=== PATIENT | male | born 1945 | race Caucasian/White ===

== ENCOUNTER 2016-09-14 18:53 | Inpatient (IN) | payer MEDICARE, OTHER ==
[2016-09-14] MEDS ORDERED: SODIUM CHLORIDE 0.9% 1,000 ML IV STA (19:08)
[2016-09-14 19:18] LABS: Anisocytosis Slight; Basophils % (A) 0 %; CH 32.2; CHCM 32.5; Eosinophils # (A) 0.2 k/uL (0-0.7); Eosinophils % (A) 2 %; HCT 38.4 % (39.0-53.0); HDW 2.44; HGB 12.3 gm/dL (13.0-17.5); Luc # (Auto) 0.14; Luc % (Auto) 2; Lymphocytes # (A) 1.2 k/uL (1.0-4.8); Lymphocytes % (A) 17 %; MCHC 32.2 g/dL (31.0-37.0); MCV 99.4 fL (80.0-100.0); Macrocytosis Slight; Mean Platelet Volume 7.7; Monocytes # (A) 0.4 k/uL (0-1.0); Monocytes % (A) 6 %; Neutrophils # (A) 5.2 k/uL (1.3-7.7); Neutrophils % (A) 72 %; RBC 3.86 m/uL (4.30-5.90); RDW 17.1 % (11.5-15.5); WBC 7.1 k/uL (3.8-10.6); WBC (Perox) 7.14
--- NOTE | 2016-09-14 19:24 | XR ---
EXAMINATION TYPE: XR chest 1V DATE OF EXAM: 09/14/2016 7:17 PM COMPARISON: 12/15/2014 HISTORY: 71-year-old male difficulty breathing and chest pain TECHNIQUE: Single frontal view of the chest is obtained. FINDINGS: The heart is upper limits of normal in size. Aorta and pulmonary vasculature within normal limits. [place] areas of atelectasis lower lungs. Relative upper lung lucencies may reflect underlying emphysem a. Reverse right total shoulder arthroplasty. IMPRESSION: Possible underlying emphysema. No acute process seen.
[2016-09-14 19:27] LABS: ALT 38 U/L (21-72); AST 112 U/L (17-59); Alkaline Phosphatase 123 U/L (38-126); Anion Gap 15 mmol/L; Blood Urea Nitrogen 16 mg/dL (9-20); Calcium 8.2 mg/dL (8.4-10.2); Carbon Dioxide 29 mmol/L (22-30); Chloride 92 mmol/L (98-107); Glucose 98 mg/dL (74-99); Non-African American GFR(MDRD) 52 (>60 ml/min/1.73 sqM); Potassium 3.1 mmol/L (3.5-5.1); Sodium 136 mmol/L (137-145)
[2016-09-14 19:40] LABS: INR 1.1 (<1.1); Partial Thromboplastin Time 27.6 sec (22.0-30.0); Prothrombin Time 11.1 sec (9.0-12.0)
[2016-09-14 19:53] LABS: Troponin I 0.026 ng/mL (0.000-0.034)
[2016-09-14] MEDS ORDERED: IPRATROPIUM 0.5 MG/2.5 ML NEBU INHALATION STA (20:04)
[2016-09-14] MEDS ORDERED: BUDESONIDE 1 MG/2 ML NEBU INHALATION STA (20:05)
[2016-09-14] MEDS ORDERED: methylPREDNISolone SOD SUCCI 125 MG/2 ML VIAL IV STA (20:05)
[2016-09-14] MEDS ORDERED: LEVOFLOXACIN 500 MG TAB PO STA (20:06)
[2016-09-14] MEDS ORDERED: POTASSIUM CHLORIDE ORAL LIQUID 40 MEQ/30 ML CUP PO ONE (20:07)
[2016-09-14] MEDS ORDERED: DILTIAZEM 5 MG/ML 25 ML VIAL IV STA (20:11)
[2016-09-14] MEDS ORDERED: DILTIAZEM 125 MG in SODIUM CHLORIDE 0.9% 100 ML IV ONE (20:15)
[2016-09-14] MEDS ORDERED: DEXTROSE 5% IN WATER 100 ML with AMIODARONE 150 MG IV ONE (21:15)
[2016-09-14] MEDS ORDERED: SODIUM CHLORIDE 0.9% 500 ML IV ONE (21:19)
[2016-09-14] MEDS ORDERED: SODIUM CHLORIDE 0.9% 1,000 ML IV SCH (21:30)
--- NOTE | 2016-09-14 22:07 | ED ---
SOB HPI - General Chief Complaint: Shortness of Breath Stated Complaint: SOB Time Seen by Provider: 09/14/16 18:59 Source: patient, EMS Mode of arrival: EMS Limitations: no limitations - History of Present Illness Initial Comments: Draining about a palpitation, irregular heartbeat and shortness of breath he does have a history of COPD but shortness of breath is worse today. He is quite vague historian denies any chest pain he does feel some discomfort with deep breaths also complained about some black tarry stools. Eyes any headaches no neck stiffness does have a chest discomfort but it's chronic does have a shortness of breath and is chronic as well no abdominal pain no frequency urgency dysuria no symptoms of TIA or CVA - Related Data Home Medications Medication Instructions Recorded Confirmed HYDROcodone/APAP 10-325MG [[place] 1 tab PO Q6H PRN 08/27/13 09/14/16 10-325] Ipratropium [place] [Atrovent Hfa] 2 puff INHALATION RT-BID 11/01/14 09/14/16 Furosemide [Lasix] 40 mg PO DAILY 12/15/14 09/14/16 Budesonide/Formoterol Fumarate 2 puff INHALATION RT-BID 01/17/16 09/14/16 [Symbicort 160-4.5 Mcg Inhaler] Dicyclomine [Bentyl] 20 mg PO QID 01/17/16 09/14/16 Ipratropium-Albuterol Nebulize 3 ml INHALATION RT-QID PRN 01/17/16 09/14/16 [Duoneb 0.5 mg-3 mg/3 ml Soln] Metoprolol Tartrate 25 mg PO BID 01/17/16 09/14/16 Potassium Chloride ER [K-Dur 20] 20 meq PO DAILY 01/17/16 09/14/16 Pravastatin Sodium [Pravachol] 40 mg PO HS 01/17/16 09/14/16 Tamsulosin HCl [Flomax] 0.4 mg PO HS 01/17/16 09/14/16 Albuterol Sulfate [Proair Hfa] 1 - 2 puff INHALATION RT-Q6H PRN 09/14/16 Aspirin EC [Ecotrin Low Dose] 81 mg PO DAILY 09/14/16 09/14/16 Rivaroxaban [Xarelto] 20 mg PO DAILY 09/14/16 09/14/16 Allergies Allergy/AdvReac Type Severity Reaction Status Date / Time cephalexin monohydrate Allergy Rash/Hives Verified 09/14/16 19:50 [From Keflex] Review of Systems ROS Statement: Those systems with pertinent positive or pertinent negative responses have been documented in the HPI. ROS Other: All systems not noted in ROS Statement are negative. Past Medical History Past Medical History: Atrial Fibrillation, Chest Pain / Angina, Heart Failure, COPD, Hyperlipidemia, Hypertension, Pneumonia Additional Past Medical History / Comment(s): 12-15-14 ADMITTED TO [facility] WITH AFIB /PNE.OTHER HX: COPD, ALCOHOLIC CARDIOMYOPATHY, DT'S, CERVICAL AND LUMBAR SPONDYLOSIS, CARPAL TUNNEL disease. History of Any Multi-Drug Resistant Organisms: None Reported Past Surgical History: Back Surgery, Hernia Repair Additional Past Surgical History / Comment(s): right shoulder, bilateral cataract surgery , UMBILICAL HERNIA KINDNEY STONES REMOVED, HAMMER TOE SX X3, with subsequent amputation of the second great toe on his left foot, pain injections through neurology, colonoscopy Past Anesthesia/Blood Transfusion Reactions: No Reported Reaction Past Psychological History: No Psychological Hx Reported Additional Psychological History / Comment(s): LIVES ALONE, HX FALLS. GETS MEALS ON WHEELS. Smoking Status: Current every day smoker Past Alcohol Use History: Daily Additional Past Alcohol Use History / Comment(s): SMOKING FOR 48 YEARS DOWN 1 PPD, DRINKS A FIFTH OF VODKA BETWEEN 9PM-MIDNIGHT DAILY Past Drug Use History: None Reported - Past Family History Father Family Medical History: Diabetes Mellitus Mother History Unknown: Yes Additional Family Medical History / Comment(s): 2001 General Exam - General Exam Comments Initial Comments: General: The patient is awake and alert, in moderate distress, GCS is 15 Skin: Skin is warm and dry and no rashes or lesions are noted. The loss of excoriation scott all over on his Eye: Pupils are equal, round and reactive to light, extra-ocular movements are intact; there is normal conjunctiva bilaterally. Ears, nose, mouth and throat: Tender is not cooperative Neck: The neck is supple Cardiovascular: There is tachycardia heart rate is irregular at about 1 40 bpm Respiratory: To auscultation bilateral, is present bilaterally noticed some crackles and moderate COPD as well Gastrointestinal: patient was not cooperative with the exam, was irritated Back: Not able to examine him because of the lack of cooperation Musculoskeletal: Normal ROM, no tenderness, There is no pedal edema. There is no calf tenderness or swelling. No cords were appreciated. Neurological: CN II-XII intact, Cranial nerves III through XII are intact. There are no obvious motor or sensory deficits. Coordination appears grossly intact. Speech is normal. Psychiatric: is angry agitated frequently cursing Limitations: no limitations Course Vital Signs 09/14/16 09/14/16 09/14/16 18:54 20:45 21:00 Temperature 98.2 F Pulse Rate 140 H 151 H 145 H Respiratory 30 H 24 Rate Blood Pressure 90/57 97/52 O2 Sat by Pulse 96 97 Oximetry 09/14/16 09/14/16 21:04 21:52 Temperature Pulse Rate 143 H 148 H Respiratory 22 Rate Blood Pressure 117/58 O2 Sat by Pulse 99 Oximetry EKG is a 140 ventricular rate QRS duration is 88 QT/QTc is 346/528 review of this EKG shows some multiple artifacts do not see any P waves there are some slight ST depressions on now lateral leads V4 V5 and V6 no ST elevation noticed Medical Decision Making - Lab Data Result diagrams: 09/14/16 19:05 09/14/16 19:05 Lab Results 09/14/16 09/14/16 09/14/16 Range/Units 19:05 19:05 19:05 WBC 7.1 (3.8-10.6) k/uL RBC 3.86 L (4.30-5.90) m/uL Hgb 12.3 L (13.0-17.5) gm/dL Hct 38.4 L (39.0-53.0) % MCV 99.4 (80.0-100.0) fL MCH 32.0 (25.0-35.0) pg MCHC 32.2 (31.0-37.0) g/dL RDW 17.1 H (11.5-15.5) % Plt Count 246 (150-450) k/uL Neutrophils % 72 % Lymphocytes % 17 % Monocytes % 6 % Eosinophils % 2 % Basophils % 0 % Neutrophils # 5.2 (1.3-7.7) k/uL Lymphocytes # 1.2 (1.0-4.8) k/uL Monocytes # 0.4 (0-1.0) k/uL Eosinophils # 0.2 (0-0.7) k/uL Basophils # 0.0 (0-0.2) k/uL Anisocytosis Slight Macrocytosis Slight PT (9.0-12.0) sec INR (<1.1) APTT (22.0-30.0) sec D-Dimer (<0.60) mg/L FEU Sodium 136 L (137-145) mmol/L Potassium 3.1 L (3.5-5.1) mmol/L Chloride 92 L (98-107) mmol/L Carbon Dioxide 29 (22-30) mmol/L Anion Gap 15 mmol/L BUN 16 (9-20) mg/dL Creatinine 1.36 H (0.66-1.25) mg/dL Est GFR (MDRD) Af Amer >60 (>60 ml/min/1.73 sqM) Est GFR (MDRD) Non-Af 52 (>60 ml/min/1.73 sqM) Glucose 98 (74-99) mg/dL Calcium 8.2 L (8.4-10.2) mg/dL Total Bilirubin 2.0 H (0.2-1.3) mg/dL AST 112 H (17-59) U/L ALT 38 (21-72) U/L Alkaline Phosphatase 123 (38-126) U/L Total Creatine Kinase 109 (55-170) U/L CK-MB (CK-2) 2.0 (0.0-2.4) ng/mL CK-MB (CK-2) Rel Index 1.8 Troponin I 0.026 (0.000-0.034) ng/mL NT-Pro-B Natriuret Pep pg/mL Total Protein 7.0 (6.3-8.2) g/dL Albumin 4.0 (3.5-5.0) g/dL Stool Occult Blood (Negative) 09/14/16 09/14/16 09/14/16 Range/Units 19:05 19:05 19:05 WBC (3.8-10.6) k/uL RBC (4.30-5.90) m/uL Hgb (13.0-17.5) gm/dL Hct (39.0-53.0) % MCV (80.0-100.0) fL MCH (25.0-35.0) pg MCHC (31.0-37.0) g/dL RDW (11.5-15.5) % Plt Count (150-450) k/uL Neutrophils % % Lymphocytes % % Monocytes % % Eosinophils % % Basophils % % Neutrophils # (1.3-7.7) k/uL Lymphocytes # (1.0-4.8) k/uL Monocytes # (0-1.0) k/uL Eosinophils # (0-0.7) k/uL Basophils # (0-0.2) k/uL Anisocytosis Macrocytosis PT 11.1 (9.0-12.0) sec INR 1.1 (<1.1) APTT 27.6 (22.0-30.0) sec D-Dimer 0.76 H (<0.60) mg/L FEU Sodium (137-145) mmol/L Potassium (3.5-5.1) mmol/L Chloride (98-107) mmol/L Carbon Dioxide (22-30) mmol/L Anion Gap mmol/L BUN (9-20) mg/dL Creatinine (0.66-1.25) mg/dL Est GFR (MDRD) Af Amer (>60 ml/min/1.73 sqM) Est GFR (MDRD) Non-Af (>60 ml/min/1.73 sqM) Glucose (74-99) mg/dL Calcium (8.4-10.2) mg/dL Total Bilirubin (0.2-1.3) mg/dL AST (17-59) U/L ALT (21-72) U/L Alkaline Phosphatase (38-126) U/L Total Creatine Kinase (55-170) U/L CK-MB (CK-2) (0.0-2.4) ng/mL CK-MB (CK-2) Rel Index Troponin I (0.000-0.034) ng/mL NT-Pro-B Natriuret Pep 4470 pg/mL Total Protein (6.3-8.2) g/dL Albumin (3.5-5.0) g/dL Stool Occult Blood Negative (Negative) Critical Care Time Total Critical Care Time: 45 Critical Care Time: Patient came in with a low blood pressure and very fast heart rate, we initially wanted to give him a Cardizem bolus as well as Cardizem infusion patient said he is ALLERGIC to something which starts with the family and that happened to him at the [facility] this lady in moderate to use the Cardizem the Cardizem is not mention his ALLERGY that point we gave him some neb treatments and some IV steroids to help him with his breathing, amiodarone 150 mg over 20 minutes were advised for his tachyarrhythmia and considering his low blood pressure we gave him a bolus of normal saline for health he be admitted to a selective, his d-dimer is elevated is given need to further evaluation for a CT rule out PE though he is not a candidate for CT angiogram since his creatinine is high my have ordered VQ scan spoke with a V/Q tach VQ scan not B possible tonight and maybe possible tomorrow morning but he will continue his Xeralto for now Disposition Clinical Impression: Tachyarrhythmia, COPD (chronic obstructive pulmonary disease), Hypotension, Elevated d-dimer Disposition: ADMITTED IP TO THIS HOSP Condition: Poor Referrals: Darrick Georges MD [Primary Care Provider] - 1-2 days
[2016-09-14] MEDS ORDERED: METOPROLOL TARTRATE 25 MG TAB PO STA (22:41)
[2016-09-14] MEDS: HYDROcodone/APAP 10-325MG 1 EACH TAB PO PRN (22:58)
[2016-09-15] MEDS: METOPROLOL TARTRATE 25 MG TAB PO STA ×2 (00:34→00:37)
[2016-09-15] MEDS: methylPREDNISolone SOD SUCCI 125 MG/2 ML VIAL IV SCH ×3 (00:34→13:16)
[2016-09-15] MEDS ORDERED: METOPROLOL TARTRATE 25 MG TAB PO STA (02:27)
[2016-09-15] MEDS: AMIODARONE 450 MG in DEXTROSE 5% IN WATER 250 ML IV SCH ×4 (02:50→10:08)
[2016-09-15] MEDS: SODIUM CHLORIDE 0.9% 1,000 ML IV SCH ×2 (02:51→10:12)
[2016-09-15] MEDS: IPRATROPIUM-ALBUTEROL 3 ML NEB INHALATION PRN ×4 (06:09→23:52)
[2016-09-15 06:38] LABS: Glucose,Whole Blood 206 mg/dL (75-99)
[2016-09-15] MEDS: INSULIN LISPRO (humaLOG) 300 UNIT/3 ML VIAL SQ SCH ×4 (06:39→21:59)
[2016-09-15 06:46] LABS: Anisocytosis Slight; Basophils % (A) 0 %; CH 32.1; CHCM 31.4; Eosinophils % (A) 0 %; HCT 32.7 % (39.0-53.0); HDW 2.43; HGB 10.5 gm/dL (13.0-17.5); Hypochromasia Slight; Luc # (Auto) 0.03; Luc % (Auto) 1; Lymphocytes # (A) 0.4 k/uL (1.0-4.8); Lymphocytes % (A) 11 %; MCHC 32.2 g/dL (31.0-37.0); MCV 102.5 fL (80.0-100.0); Macrocytosis Moderate; Mean Platelet Volume 8.1; Monocytes # (A) 0.1 k/uL (0-1.0); Monocytes % (A) 2 %; Neutrophils # (A) 2.8 k/uL (1.3-7.7); Neutrophils % (A) 86 %; RBC 3.19 m/uL (4.30-5.90); WBC 3.3 k/uL (3.8-10.6); WBC (Perox) 3.22
[2016-09-15 06:57] LABS: Calcium 7.3 mg/dL (8.4-10.2)
[2016-09-15 07:05] LABS: Potassium 4.1 mmol/L (3.5-5.1)
[2016-09-15] MEDS ORDERED: BUDESONIDE 0.5 MG/2 ML NEBU INHALATION SCH (08:00)
[2016-09-15] MEDS ORDERED: METOPROLOL TARTRATE 25 MG TAB PO SCH ×3 (09:00→16:00)
[2016-09-15] MEDS: RIVAROXABAN 10 MG TAB PO SCH (09:41)
[2016-09-15] MEDS: ASPIRIN 81 MG CHEW PO SCH (09:43)
[2016-09-15] MEDS: DICYCLOMINE 20 MG TAB PO SCH ×4 (09:43→21:59)
[2016-09-15] MEDS: POTASSIUM CHLORIDE ER 20 MEQ TAB.ER PO SCH (09:43)
[2016-09-15] MEDS: LEVOFLOXACIN 500 MG TAB PO SCH (09:44)
[2016-09-15] MEDS: FUROSEMIDE 40 MG TAB PO SCH (09:44)
--- NOTE | 2016-09-15 09:58 | NM ---
EXAMINATION TYPE: NM pul vent and perfuse DATE OF EXAM: 09/15/2016 9:35 AM COMPARISON: Chest x-ray 09/14/2016 HISTORY: Elevated d-dimer, abnormal creatinine TECHNIQUE: Utilizing inhalation of 69.7 mCi Tc 99m DTPA aerosol and intravenous injection of 5.5 mCi of Tc 99m MAA, ventilation and perfusion images are acquired post injection in multiple projections. FINDINGS: There is diminished radiotracer accumulation within the left base on both ventilation and perfusion. A triple matched defect is not identified. There is no evidence of moderate or large mismatched defec ts. There is some central deposition of radiotracer on ventilation suggesting some COPD may be presen t. Diminished radiotracer accumulation on resting and stress images through the right apex. IMPRESSION: 1. Intermediate probability for pulmonary embolism. 2. There are some matched defects as well as central deposition of radiotracer suggesting underlying COPD.
[2016-09-15] MEDS: SYMBICORT 160-4.5 MCG INHALER INHALATION SCH ×2 (10:45→20:25)
[2016-09-15] MEDS: IPRATROPIUM 0.5 MG/2.5 ML NEBU INHALATION SCH ×2 (10:55→20:25)
--- NOTE | 2016-09-15 11:28 | PN ---
This is an elderly 71-year-old male patient who has been complaining of palpitations and shortness of breath. Cardiology was consulted for atrial fibrillation. He is lying comfortably in bed. He does have bilateral rhonchorous breath sounds. He denies any chest discomfort. He is complaining of palpitations and shortness of breath. Her medication list was reviewed and includes inhalers, metoprolol tartrate 25 mg b.i.d., potassium chloride, Pravachol, aspirin and Xarelto. ALLERGIES TO KEFLEX. REVIEW OF SYSTEMS: No fever, chills, or rigors. He has some cough and expectoration. No nausea, vomiting, or diarrhea. No hematuria or dysuria. No recent strokes or seizures. Past medical history of atrial fibrillation and COPD, dyslipidemia, hypertension, and alcoholic cardiomyopathy. On examination, his blood pressure is 112/88 mm mercury. Heart rate goes up 144 beats per minute irregular. He is afebrile, 97.1 degrees Fahrenheit. Head and neck examination is normal. Heart sounds are irregular. Breath sounds are reduced bilaterally with rhonchorous breath sounds. EXTREMITIES: Warm. No edema. IMPRESSION: 1. Persistent atrial fibrillation with rapid ventricular response. 2. History of alcohol use. 3. Chronic obstructive pulmonary disease exacerbation. 4. Chronic kidney disease with GFR ( ), stage III. SUGGEST: Continue metoprolol at 50 mg twice daily. Avoid digoxin. He is on amiodarone for rate control because his blood pressure is low and he is not able to tolerate higher dose of medications. Tomorrow we will switch to oral amiodarone and I will also increase the metoprolol to 50 mg 3 times a day. TSH level to be checked.
[2016-09-15 12:10] LABS: Glucose,Whole Blood 173 mg/dL (75-99)
[2016-09-15] MEDS ORDERED: Magnesium Replacement Protocol 1 EACH MISC MISCELLANE PRN (13:17)
[2016-09-15] MEDS: MAGNESIUM SULFATE-D5W PMX 1 GM in DEXTROSE/WATER 1 100ML.BAG IVPB SCH ×3 (14:30→17:48)
[2016-09-15] MEDS: METOPROLOL TARTRATE 50 MG TAB PO SCH ×2 (16:34→21:59)
[2016-09-15 17:31] LABS: Glucose,Whole Blood 227 mg/dL (75-99)
[2016-09-15] MEDS: DIAZEPAM 5 MG TAB PO SCH ×2 (17:52→21:59)
--- NOTE | 2016-09-15 18:06 | HP ---
DATE OF ADMISSION: 09/15/2016 PRESENTING COMPLAINT: Tired, short of breath. HISTORY OF PRESENTING COMPLAINT: This is a 71-year-old patient of Dr. Georges whose chronic stable medical conditions include hypertension, hyperlipidemia. Patient also noticed chronic history of atrial fibrillation, cardiomyopathy, COPD, the patient smokes about a pack a day and drinks at least 1 or 2 pints of Vodka a day. Patient presented with ( ) feeling tired, short of breath, wheezing, slight cough. No sputum. Decreased appetite, tired, rundown. REVIEW OF SYSTEMS: CONSTITUTIONAL: Weak and tired. HEENT: None. RESPIRATORY: As above. CARDIOVASCULAR: Irregular heart beat. GENITOURINARY: None. MUSCULOSKELETAL: None. Dermatological: None. HEMATOLOGICAL: None. LYMPHATICS: None. PSYCHIATRY: Some anxiety. NEUROLOGICAL: None. Past history of atrial fibrillation, cardiomyopathy, COPD, hypertension, hyperlipidemia, alcoholic cardiomyopathy. Cervical and lumbar spondylosis. Carpal tunnel disease. PAST SURGICAL HISTORY: Back surgery, hernia repair, right shoulder surgery, bilateral cataract surgery and umbilical hernia repair. Kidney stones removed, donal x3. Amputation of the second toe on the right, ( ) injections. SOCIAL HISTORY: The patient lives with friend Bekah Arriaga. She lives upstairs. Also takes care of her house. The patient smokes about a pack a day. Drinks 1 to 2 fifths of vodka between 9:00 p.m. and midnight daily. FAMILY HISTORY: Diabetes. HOME MEDICATIONS: 1. Potassium 20 mEq a day. 2. Flomax 0.4 mg p.o. q.h.s. 3. Pravachol 40 mg q.h.s. 4. Bentyl 20 mg p.o. q.i.d. 5. Aspirin 81 mg p.o. daily. 6. Pro-Air 1 to 2 puffs q.6 p.r.n. 7. Xarelto 20 mg p.o. daily. 8. Metoprolol 25 mg p.o. b.i.d. 9. DuoNeb q.i.d. p.r.n. 10. Atrovent 2 puffs b.i.d. 11. Radiant 10 1 tablets q.6 p.r.n. 12. Lasix 40 mg p.o. daily. 13. Symbicort 2 puffs b.i.d. ALLERGIES TO KEFLEX. PHYSICAL EXAMINATION: Vital signs on presentation: Temperature 98.2, pulse 140, respirations 30, blood pressure 95/57, pulse ox 96% on room air. GENERAL APPEARANCE: Average build, lying in bed, disheveled, lying in bed, short of breath. EYES: Pupils equal. Conjunctivae normal. HEENT: External appearance of nose and ears normal. Oral cavity normal. NECK: JVD not raised. Mass not palpable. RESPIRATORY: Effort increased. LUNGS: Diminished breath sounds. Prolonged expiration and wheezing. CARDIOVASCULAR: First and second sounds normal. No edema. ABDOMEN: Soft, nontender. Liver and spleen not palpable. LYMPHATIC: No lymph node palpable in neck or axillae. PSYCHIATRY: Alert and oriented x3. Mood and affect anxious -appearing. NEUROLOGICAL: Pupils equal. Cranial nerves grossly intact. Power and sensation grossly intact. INVESTIGATIONS: White count 7.1 repeat was 3.3, hemoglobin 10.5, platelets 139, potassium 4.1. BUN 18, creatinine 1.060. Accu-Cheks are noted. Calcium 7.3. Magnesium 1.0. TSH normal 1.3. X-ray some over inflation. ASSESSMENT: 1. Acute chronic obstructive pulmonary disease exacerbation in a long-standing smoker. 2. Persistent atrial fibrillation, present on admission, uncontrolled. 3. Hyperlipidemia. 4. Essential hypertension. 5. Chronic nicotine dependence. Patient is a smoker. 6. Alcoholic cardiomyopathy. 7. Chronic alcohol dependence. PLAN: Patient was started on nebulized bronchodilators and IV steroids. Also started patient put back on Lasix. Atrial fibrillation uncontrolled. Patient is on Lopressor. The patient will be given a nicotine patch and also given some Valium, DVT prophylaxis. Consultation to pulmonary and cardiology was made.
[2016-09-15] MEDS ORDERED: IPRATROPIUM-ALBUTEROL 3 ML NEB INHALATION SCH (20:00)
[2016-09-15 21:43] LABS: Glucose,Whole Blood 155 mg/dL (75-99)
[2016-09-15] MEDS: TAMSULOSIN 0.4 MG CAP.ER.24H PO SCH (21:59)
[2016-09-15] MEDS: PRAVASTATIN SODIUM 40 MG TAB PO SCH (21:59)
[2016-09-15] MEDS: methylPREDNISolone SOD SUCCI 40 MG/ML 1 ML VIAL IV SCH (23:26)
[2016-09-16] MEDS: AMIODARONE 450 MG in DEXTROSE 5% IN WATER 250 ML IV SCH ×4 (03:04→03:05)
[2016-09-16] MEDS: IPRATROPIUM-ALBUTEROL 3 ML NEB INHALATION PRN (03:44)
[2016-09-16 06:30] LABS: Glucose,Whole Blood 227 mg/dL (75-99)
[2016-09-16] MEDS: INSULIN LISPRO (humaLOG) 300 UNIT/3 ML VIAL SQ SCH ×4 (06:33→22:00)
[2016-09-16] MEDS: DIAZEPAM 5 MG TAB PO SCH ×4 (08:56→22:05)
[2016-09-16] MEDS: LEVOFLOXACIN 500 MG TAB PO SCH (08:58)
[2016-09-16] MEDS: METOPROLOL TARTRATE 50 MG TAB PO SCH ×3 (08:58→22:03)
[2016-09-16] MEDS: FUROSEMIDE 40 MG TAB PO SCH (08:58)
[2016-09-16] MEDS: RIVAROXABAN 10 MG TAB PO SCH (08:59)
[2016-09-16] MEDS: ASPIRIN 81 MG CHEW PO SCH (08:59)
[2016-09-16] MEDS: methylPREDNISolone SOD SUCCI 40 MG/ML 1 ML VIAL IV SCH ×3 (08:59→23:46)
[2016-09-16] MEDS: DICYCLOMINE 20 MG TAB PO SCH ×4 (08:59→22:03)
[2016-09-16] MEDS: SYMBICORT 160-4.5 MCG INHALER INHALATION SCH ×2 (09:03→20:08)
[2016-09-16] MEDS: IPRATROPIUM-ALBUTEROL 3 ML NEB INHALATION SCH ×4 (09:04→20:08)
[2016-09-16] MEDS: HYDROcodone/APAP 10-325MG 1 EACH TAB PO PRN (09:11)
[2016-09-16 09:53] LABS: Anisocytosis Slight; CH 32.2; CHCM 30.9; HCT 29.4 % (39.0-53.0); HDW 2.19; HGB 9.1 gm/dL (13.0-17.5); Hypochromasia Slight; MCH 32.2 pg (25.0-35.0); MCHC 30.9 g/dL (31.0-37.0); MCV 104.3 fL (80.0-100.0); Macrocytosis Moderate; Mean Platelet Volume 8.6; RBC 2.82 m/uL (4.30-5.90); RDW 17.4 % (11.5-15.5); WBC 6.7 k/uL (3.8-10.6)
[2016-09-16 09:57] LABS: Calcium 7.5 mg/dL (8.4-10.2); Potassium 3.8 mmol/L (3.5-5.1)
[2016-09-16] MEDS: SODIUM CHLORIDE 0.9% 1,000 ML IV SCH (10:26)
[2016-09-16] MEDS: POTASSIUM CHLORIDE ER 20 MEQ TAB.ER PO SCH (10:27)
[2016-09-16] MEDS ORDERED: THIAMINE 100 MG/ML 2 ML VIAL IM STA (11:18)
[2016-09-16 11:25] LABS: Glucose,Whole Blood 148 mg/dL (75-99)
[2016-09-16] MEDS: AMIODARONE 200 MG TAB PO SCH ×2 (11:34→22:02)
--- NOTE | 2016-09-16 11:36 | P.CNPUL ---
History of Present Illness Consult date: 09/16/16 Requesting physician: Martin Norton Reason for consult: COPD Chief complaint: Shortness of breath and palpitations. History of present illness: This is a 71-year-old white male with known history of COPD, patient usually sees Dr. Virk in the office for COPD. Patient is O2 dependent, but not prednisone dependent. Smoker, patient was admitted on 09/15/2016 with multiple symptoms including increased shortness of breath, occasional cough wheezing, feeling tired most of the time, and he was experiencing intermittent palpitations. Patient is normally on Xarelto, patient is a heavy drinker, drinks about one or 2 pints of vodka on a daily basis. Upon presentation, patient was noted to be in atrial fibrillation with RVR, chest x-ray showed no evidence of pneumonia, patient was placed on bronchodilators, antibiotics, steroids, and he was seen by cardiology for his atrial fibrillation which seems to be poorly controlled at present. And the patient was placed mostly on oral metoprolol. VQ scan is nondiagnostic, granted the patient is on Xarelto maintenance. Patient denies any headaches no blurred vision no dizziness. Has mostly symptoms of shortness of breath fatigue and palpitations, denies any chest pain , no nausea no vomiting no abdominal pain, no melena, no hematemesis, no dysuria , no frequency, no urgency. Patient is known to have history of chronic atrial fibrillation, alcoholic cardiomyopathy, COPD, and hypertension. Review of Systems 14 point review of systems were obtained, please refer to pertinent positives and negatives as noted in the HPI. Past Medical History Past Medical History: Atrial Fibrillation, Chest Pain / Angina, Heart Failure, COPD, Hyperlipidemia, Hypertension, Pneumonia Additional Past Medical History / Comment(s): 12-15-14 ADMITTED TO [facility] WITH AFIB /PNE.OTHER HX: COPD, ALCOHOLIC CARDIOMYOPATHY, DT'S, CERVICAL AND LUMBAR SPONDYLOSIS, CARPAL TUNNEL disease. History of Any Multi-Drug Resistant Organisms: None Reported Past Surgical History: Back Surgery, Hernia Repair Additional Past Surgical History / Comment(s): right shoulder, bilateral cataract surgery , UMBILICAL HERNIA KINDNEY STONES REMOVED, HAMMER TOE SX X3, with subsequent amputation of the second great toe on his right foot, pain injections through neurology, colonoscopy Past Anesthesia/Blood Transfusion Reactions: No Reported Reaction Past Psychological History: No Psychological Hx Reported Additional Psychological History / Comment(s): Lives with friend, Bekah Arriaga. Says she lives in the upstairs of his home. Smoking Status: Current every day smoker Past Alcohol Use History: Daily Additional Past Alcohol Use History / Comment(s): Smokes 1 PPD, DRINKS A FIFTH OF VODKA BETWEEN 9PM-MIDNIGHT DAILY Past Drug Use History: None Reported - Past Family History Father Family Medical History: Diabetes Mellitus Mother History Unknown: Yes Additional Family Medical History / Comment(s): 2001 Medications and Allergies Home Medications Medication Instructions Recorded Confirmed Type HYDROcodone/APAP 10-325MG [[place] 1 tab PO Q6H PRN 08/27/13 09/14/16 History 10-325] Ipratropium [place] [Atrovent Hfa] 2 puff INHALATION RT-BID 11/01/14 09/14/16 History Furosemide [Lasix] 40 mg PO DAILY 12/15/14 09/14/16 History Budesonide/Formoterol Fumarate 2 puff INHALATION RT-BID 01/17/16 09/14/16 History [Symbicort 160-4.5 Mcg Inhaler] Dicyclomine [Bentyl] 20 mg PO QID 01/17/16 09/14/16 History Ipratropium-Albuterol Nebulize 3 ml INHALATION RT-QID PRN 01/17/16 09/14/16 History [Duoneb 0.5 mg-3 mg/3 ml Soln] Metoprolol Tartrate 25 mg PO BID 01/17/16 09/14/16 History Potassium Chloride ER [K-Dur 20] 20 meq PO DAILY 01/17/16 09/14/16 History Pravastatin Sodium [Pravachol] 40 mg PO HS 01/17/16 09/14/16 History Tamsulosin HCl [Flomax] 0.4 mg PO HS 01/17/16 09/14/16 History Albuterol Sulfate [Proair Hfa] 1 - 2 puff INHALATION RT-Q6H PRN 09/14/16 History Aspirin EC [Ecotrin Low Dose] 81 mg PO DAILY 09/14/16 09/14/16 History Rivaroxaban [Xarelto] 20 mg PO DAILY 09/14/16 09/14/16 History Allergies Allergy/AdvReac Type Severity Reaction Status Date / Time cephalexin monohydrate Allergy Rash/Hives Verified 09/14/16 19:50 [From Keflex] Physical Exam Vitals: Vital Signs Temp Pulse Pulse Resp BP Pulse Ox 09/16/16 09:18 112 H 09/16/16 09:05 120 H 98 09/16/16 08:00 97.6 F 144 H 22 144/62 98 09/16/16 03:46 88 09/16/16 03:37 88 09/16/16 03:05 97.2 F L 112 H 20 94/61 99 09/15/16 23:55 92 09/15/16 23:43 92 09/15/16 23:15 97.8 F 124 H 20 92/62 99 09/15/16 20:40 110 H 09/15/16 20:25 108 H 09/15/16 20:20 97.2 F L 123 H 20 108/67 100 09/15/16 18:35 126 H 95/67 09/15/16 16:19 112 H 09/15/16 16:06 105 H 09/15/16 16:00 97.7 F 106 H 20 86/62 100 09/15/16 11:41 97.7 F 115 H 20 102/64 100 Intake and Output 09/15/16 09/16/16 09/16/16 22:59 06:59 14:59 Intake Total 120 650 640 Output Total 200 Balance 120 450 640 Intake: IV 400 400 Sodium Chloride 0.9% 1, 400 400 000 ml @ 50 mls/hr IV . Q20H [facility] Rx#:[id number] Intake, IV Titration 250 Amount Amiodarone 450 mg In 250 Dextrose 5% in Water 250 ml @ 1 MG/MIN 33.33 mls/ hr IV .Q7H31M [facility] Rx#: [id number] Oral 120 240 Output: Urine 200 Other: Voiding Method Urinal Urinal # Voids 2 1 2 # Bowel Movements 2 1 Weight 71.3 kg Physical Exam: Revealed a 71-year-old white male, frail, cachectic, looks chronically ill. HEENT:[Neck is supple.] [No neck masses.] [No thyromegaly.] [No JVD.] Chest: [Diminished breath sounds at the bases, no crackles, no rhonchi, no wheezes.] Cardiac Exam: [Irregular irregular rhythm Normal S1 and S2, no S3 gallop, no murmur.] Abdomen: [Soft, nontender, no megaly, no rebound, no guarding, normal bowel sounds.] Extremities: [No clubbing, no edema, no cyanosis.] Neurological Exam: [No focal neurologic deficit.] Results - Laboratory Findings CBC and BMP: 09/16/16 05:52 09/16/16 05:52 PT/INR, D-dimer PT 11.1 sec (9.0-12.0) 09/14/16 19:05 INR 1.1 (<1.1) 09/14/16 19:05 D-Dimer 0.76 mg/L FEU (<0.60) H 09/14/16 19:05 Abnormal lab findings: Abnormal Labs 09/14/16 09/14/16 09/14/16 19:05 19:05 19:05 WBC RBC 3.86 L Hgb 12.3 L Hct 38.4 L MCV MCHC RDW 17.1 H Lymphocytes # D-Dimer 0.76 H Sodium 136 L Potassium 3.1 L Chloride 92 L BUN Creatinine 1.36 H Glucose POC Glucose (mg/dL) Calcium 8.2 L Magnesium Total Bilirubin 2.0 H AST 112 H 09/15/16 09/15/16 09/15/16 05:48 05:48 05:48 WBC 3.3 L RBC 3.19 L Hgb 10.5 L Hct 32.7 L MCV 102.5 H MCHC RDW 17.0 H Lymphocytes # 0.4 L D-Dimer Sodium 133 L Potassium Chloride 95 L BUN Creatinine 1.60 H Glucose 146 H POC Glucose (mg/dL) Calcium 7.3 L Magnesium 1.0 L* Total Bilirubin AST 09/15/16 09/15/16 09/15/16 06:36 11:47 16:51 WBC RBC Hgb Hct MCV MCHC RDW Lymphocytes # D-Dimer Sodium Potassium Chloride BUN Creatinine Glucose POC Glucose (mg/dL) 206 H 173 H 227 H Calcium Magnesium Total Bilirubin AST 09/15/16 09/16/16 09/16/16 21:38 05:52 05:52 WBC RBC 2.82 L Hgb 9.1 L Hct 29.4 L MCV 104.3 H MCHC 30.9 L RDW 17.4 H Lymphocytes # D-Dimer Sodium 130 L Potassium Chloride 96 L BUN 25 H Creatinine 1.82 H Glucose 193 H POC Glucose (mg/dL) 155 H Calcium 7.5 L Magnesium Total Bilirubin AST 09/16/16 06:10 WBC RBC Hgb Hct MCV MCHC RDW Lymphocytes # D-Dimer Sodium Potassium Chloride BUN Creatinine Glucose POC Glucose (mg/dL) 227 H Calcium Magnesium Total Bilirubin AST - Diagnostic Findings Chest x-ray: image reviewed (X-ray is suggestive of underlying COPD, no acute process was noted. VQ scan was also reviewed, indeterminate, not surprised knowing the patient has severe COPD.) Assessment and Plan Plan: Impression: 1 Acute exacerbation of COPD 2 persistent atrial fibrillation, poorly controlled, that is being addressed by cardiology on the case. 3 chronic alcohol dependence patient is presently on the protocol for alcohol withdrawal. 4 alcoholic cardiomyopathy 5 essential hypertension 6 history of hyperlipidemia 7 chronic hypoxic respiratory failure secondary to COPD 8 chronic kidney injury, and renal failure 10 history of chronic anemia and history of GI blood losses noted on previous admission. Previous history of polypectomy 4. 11 history of diabetes type 2 12 history of amputation of his toes 13 history of delirium tremens Recommendation: Patient is on proper treatment plan for his COPD, not much to be added from my perspective, however I believe the patient would feel much better once his A. fib/RVR is better controlled. We'll continue to follow. Time with Patient: Greater than 30
[2016-09-16 11:38] LABS: Magnesium 1.8 mg/dL (1.6-2.3); Phosphorous 2.8 mg/dL (2.5-4.5)
[2016-09-16] MEDS: LORazepam 2 MG/ML SYRINGE IV PRN ×4 (11:55→18:07)
--- NOTE | 2016-09-16 12:01 | PN ---
DATE OF SERVICE: 09/16/2016 PRESENTING COMPLAINT: Tired, short of breath. INTERVAL HISTORY: This is a patient who presented with an acute exacerbation of COPD. Patient is lying in bed, some work of breathing noted. Patient does not appear uncomfortable. States he is not uncomfortable. States he waits for staff to help him. Patient does appear more shaky and jittery today. Patient's last drink was about approximately 48 hours ago. Review of systems done for constitutional, cardiovascular, GI, and pulmonary with relevant findings as above. CURRENT MEDICATIONS: DuoNeb 3 mL solution q.4 hours p.r.n., Symbicort 160/4.5 mcg 2 puffs inhalation b.i.d., Lasix 40 mg p.o. daily, Levaquin 500 mg p.o. daily, Solu-Medrol 40 mg IV push q.8h. PHYSICAL EXAM: VITAL SIGNS: Temperature 97.6, pulse 144, respiratory rate 22, blood pressure 144/62, oxygen saturation 98% on 2 L nasal cannula. GENERAL APPEARANCE: Patient is lying in bed, some shortness of breath noted, some tremoring and jitteriness noted as well. EYES: Pupils equal. Conjunctivae are normal. NECK: JVD not raised. Mass not palpable. Lung sounds diminished. Prolonged expiration and wheezing. CARDIOVASCULAR: First and second sounds normal. No edema. ABDOMEN: Soft, nontender. Liver and spleen not palpable. PSYCHIATRY: Alert and oriented x3. Mood and affect anxious-appearing. NEUROLOGIC: Patient tremoring more today. Patient has a known history of alcohol use. INVESTIGATIONS: White blood cell count 6.7, hemoglobin 9.1, platelet count 159, sodium 130, potassium 3.8, BUN 25, creatinine 1.82. ASSESSMENT: 1. Acute chronic obstructive pulmonary disease exacerbation in a long-standing smoker. 2. Persistent atrial fibrillation, present on admission, uncontrolled. 3. Hyperlipidemia. 4. Essential hypertension. 5. Hyponatremia. 6. Chronic nicotine dependence. Patient is a smoker. 7. Alcoholic cardiomyopathy. 8. Chronic alcohol dependence. PLAN: Patient will continue on nebulized bronchodilators and IV steroids. Cardiology will increase Lopressor from b.i.d. to t.i.d. at 50 mg each dose. Amiodarone is expected to be switched as well. Will add salt tabs to patient's current medication regimen to aid in correcting hyponatremia. Patient's last drink was approximately 48 hours ago. Will consider adding CIWA protocol to patient's regimen should patient continue to have increased tremoring as well as more symptoms of alcohol withdrawal. Pulmonology and Cardiology continue to follow. Patient was seen and examined by a nurse practitioner, Jodi Perez, and all elements of the case discussed with Dr. Norton, attending.
--- NOTE | 2016-09-16 14:18 | P.PN ---
Subjective Principal diagnosis: Atrial fibrillation This is a 71-year-old gentleman who follows with Dr. Marlys Bermudez in the office. He has a known history of paroxysmal atrial fibrillation, cardiomyopathy, nonischemic, hypertension, hyperlipidemia, who presented to the hospital symptoms of shortness of breath and associated palpitations. Currently receiving treatment for exacerbation of COPD as well as atrial fibrillation with rapid ventricular response. Patient had been on IV amiodarone drip which was discontinued early this morning, and the patient was initiated on by mouth amiodarone. Blood pressure this morning 100/60 with a heart rate in the 1 teens, we will continue the amiodarone 400 mg one tablet by mouth twice a day for one week, then 200 3 times a day for one week, then 200 mg by mouth twice a day. Continue Xarelto 20 mg daily. Objective - Vital Signs Vital signs: Vital Signs Temp 97.0 F L 09/16/16 12:00 Pulse 87 09/16/16 12:05 Resp 20 09/16/16 12:00 BP 99/55 09/16/16 12:00 Pulse Ox 99 09/16/16 12:00 Intake & Output 09/15/16 09/16/16 09/16/16 18:59 06:59 18:59 Intake Total 476.641 770 640 Output Total 200 Balance 476.641 570 640 Weight 71.3 kg Intake: IV 400 400 Sodium Chloride 0.9% 1, 400 400 000 ml @ 50 mls/hr IV . Q20H [facility] Rx#:[id number] Intake, IV Titration 236.641 250 Amount Amiodarone 450 mg In 236.641 250 Dextrose 5% in Water 250 ml @ 1 MG/MIN 33.33 mls/ hr IV .Q7H31M [facility] Rx#: [id number] Oral 240 120 240 Output: Urine 200 Other: Voiding Method Toilet Urinal Urinal # Voids 2 1 2 # Bowel Movements 2 1 - Exam PHYSICAL EXAMINATION: HEENT: Head is atraumatic, normocephalic. Pupils equal, round. Neck is supple. There is no elevated jugular venous pressure. HEART EXAMINATION: S1 and S2 irregularly irregular CHEST EXAMINATION: Lungs reveal scattered wheezing throughout. ABDOMEN: Soft, nontender. Bowel sounds are heard. No organomegaly noted. EXTREMITIES: 2+ peripheral pulses with no evidence of peripheral edema and no calf tenderness noted. NEUROLOGIC patient is awake, alert and oriented -3. . - Labs CBC & Chem 7: 09/16/16 05:52 09/16/16 05:52 Labs: Abnormal Lab Results - Last 24 Hours (Table) 09/15/16 09/15/16 09/16/16 Range/Units 16:51 21:38 05:52 RBC 2.82 L (4.30-5.90) m/uL Hgb 9.1 L (13.0-17.5) gm/dL Hct 29.4 L (39.0-53.0) % MCV 104.3 H (80.0-100.0) fL MCHC 30.9 L (31.0-37.0) g/dL RDW 17.4 H (11.5-15.5) % Sodium (137-145) mmol/L Chloride (98-107) mmol/L BUN (9-20) mg/dL Creatinine (0.66-1.25) mg/dL Glucose (74-99) mg/dL POC Glucose (mg/dL) 227 H 155 H (75-99) mg/dL Calcium (8.4-10.2) mg/dL AST (17-59) U/L 09/16/16 09/16/16 09/16/16 Range/Units 05:52 05:52 06:10 RBC (4.30-5.90) m/uL Hgb (13.0-17.5) gm/dL Hct (39.0-53.0) % MCV (80.0-100.0) fL MCHC (31.0-37.0) g/dL RDW (11.5-15.5) % Sodium 130 L (137-145) mmol/L Chloride 96 L (98-107) mmol/L BUN 25 H (9-20) mg/dL Creatinine 1.82 H (0.66-1.25) mg/dL Glucose 193 H (74-99) mg/dL POC Glucose (mg/dL) 227 H (75-99) mg/dL Calcium 7.5 L (8.4-10.2) mg/dL AST 81 H (17-59) U/L 09/16/16 Range/Units 11:19 RBC (4.30-5.90) m/uL Hgb (13.0-17.5) gm/dL Hct (39.0-53.0) % MCV (80.0-100.0) fL MCHC (31.0-37.0) g/dL RDW (11.5-15.5) % Sodium (137-145) mmol/L Chloride (98-107) mmol/L BUN (9-20) mg/dL Creatinine (0.66-1.25) mg/dL Glucose (74-99) mg/dL POC Glucose (mg/dL) 148 H (75-99) mg/dL Calcium (8.4-10.2) mg/dL AST (17-59) U/L Assessment and Plan (1) COPD exacerbation Status: Acute (2) Chronic a-fib Status: Acute (3) EtOH dependence Status: Acute (4) NICM (nonischemic cardiomyopathy) Status: Acute (5) HTN (hypertension) Status: Acute (6) Hyperlipemia Status: Acute (7) Chronic kidney disease Status: Acute (8) Chronic anemia Status: Acute (9) Chronic kidney disease Status: Acute (10) Diabetes Status: Acute (11) COPD (chronic obstructive pulmonary disease) Status: Acute Plan: From cardiology's perspective, we initiated milligrams amiodarone by mouth twice a day, we will continue that for one week then decrease to 200 3 times a day, continue for one week and decrease to 200 mg by mouth twice a day. Continue xarelto. DNP note has been reviewed, I agree with a documented findings and plan of care. Patient was seen and examined.
[2016-09-16 15:32] VITALS: BMI 21.3
[2016-09-16 16:38] LABS: Glucose,Whole Blood 153 mg/dL (75-99)
[2016-09-16] MEDS: THIAMINE 100 MG TAB PO SCH (17:13)
[2016-09-16 21:07] LABS: Glucose,Whole Blood 153 mg/dL (75-99)
[2016-09-16] MEDS: TAMSULOSIN 0.4 MG CAP.ER.24H PO SCH (22:03)
[2016-09-16] MEDS: PRAVASTATIN SODIUM 40 MG TAB PO SCH (22:18)
--- NOTE | 2016-09-17 05:50 | PN ---
DATE OF SERVICE: 09/16/2016 ATTENDING NOTE: This patient was seen and examined by me earlier today. I reviewed the note of my nurse practitioner Ms. Perez and discussed with her. Patient is admitted with COPD exacerbation and atrial fibrillation. The patient is also on Valium for DVT prophylaxis. Did tolerate some diet. Somewhat tired and mildly delirious. Current medications include nebulized bronchodilator, IV Solu-Medrol. On examination, afebrile, pulse 112, respirations 20, blood pressure 91/48, slightly short of breath. LUNGS: Increased respiration, decreased breath sounds and scattered crackles. CARDIOVASCULAR: Heart sounds irregular. ( ) lethargic but arousable. NEUROLOGICAL: Has generalized some shaking. INVESTIGATIONS: White count 6.7, sodium 130, BUN 25, creatinine 1.82 up from 1.36. ASSESSMENT: 1. Acute severe chronic obstructive pulmonary disease exacerbation in a long-standing smoker, slow to respond. 2. Persistent atrial fibrillation, somewhat controlled. 3. Hyponatremia; suspect hypoosmolar, from decreased oral intake. 4. Acute renal failure, likely prerenal from decreased oral intake. 5. Early delirium tremens from alcoholism. PLAN: Will increase patient's IV fluids. DC Lasix. Increase the Valium to 5 mg q.8. Will follow.
--- NOTE | 2016-09-17 05:54 | PN ---
ADDENDUM: ASSESSMENT: Hyponatremia likely hypoosmolar. PLAN: Discontinue Lasix. Patient was seen and examined by nurse practitioner, Jodi Perez, and all elements of the case discussed with Dr. Norton attending.
[2016-09-17] MEDS: INSULIN LISPRO (humaLOG) 300 UNIT/3 ML VIAL SQ SCH ×7 (06:16→21:07)
[2016-09-17 06:18] LABS: Glucose,Whole Blood 131 mg/dL (75-99)
[2016-09-17] MEDS: LORazepam 2 MG/ML SYRINGE IV PRN ×3 (06:25→11:50)
[2016-09-17] MEDS: methylPREDNISolone SOD SUCCI 40 MG/ML 1 ML VIAL IV SCH ×3 (08:14→23:04)
[2016-09-17] MEDS: POTASSIUM CHLORIDE ER 20 MEQ TAB.ER PO SCH (08:15)
[2016-09-17] MEDS: METOPROLOL TARTRATE 50 MG TAB PO SCH ×3 (08:15→21:06)
[2016-09-17] MEDS: ASPIRIN 81 MG CHEW PO SCH (08:15)
[2016-09-17] MEDS: RIVAROXABAN 10 MG TAB PO SCH (08:15)
[2016-09-17] MEDS: DICYCLOMINE 20 MG TAB PO SCH ×3 (08:15→16:36)
[2016-09-17] MEDS: LEVOFLOXACIN 250 MG TAB PO SCH (08:15)
[2016-09-17] MEDS: AMIODARONE 200 MG TAB PO SCH ×2 (08:15→21:05)
[2016-09-17] MEDS: DIAZEPAM 5 MG TAB PO SCH ×4 (08:15→21:05)
[2016-09-17 08:25] LABS: Calcium 7.7 mg/dL (8.4-10.2); Carbon Dioxide 28 mmol/L (22-30); Chloride 100 mmol/L (98-107); Potassium 4.4 mmol/L (3.5-5.1)
[2016-09-17 08:34] LABS: Anion Gap 9 mmol/L; Blood Urea Nitrogen 31 mg/dL (9-20); Glucose 119 mg/dL (74-99); Non-African American GFR(MDRD) 50 (>60 ml/min/1.73 sqM); Sodium 137 mmol/L (137-145)
[2016-09-17 08:35] LABS: Anisocytosis Slight; CHCM 30.4; HCT 29.3 % (39.0-53.0); HGB 9.1 gm/dL (13.0-17.5); Hypochromasia Slight; MCH 32.8 pg (25.0-35.0); MCHC 31.1 g/dL (31.0-37.0); MCV 105.5 fL (80.0-100.0); Macrocytosis Moderate; Mean Platelet Volume 7.8; RBC 2.78 m/uL (4.30-5.90); RDW 17.5 % (11.5-15.5); WBC 6.5 k/uL (3.8-10.6)
[2016-09-17] MEDS: IPRATROPIUM-ALBUTEROL 3 ML NEB INHALATION SCH ×5 (08:40→21:00)
[2016-09-17] MEDS: SYMBICORT 160-4.5 MCG INHALER INHALATION SCH ×2 (08:41→21:00)
[2016-09-17 11:43] LABS: Glucose,Whole Blood 169 mg/dL (75-99)
[2016-09-17] MEDS: THIAMINE 100 MG TAB PO SCH ×2 (11:46→16:36)
--- NOTE | 2016-09-17 15:01 | P.PN ---
Subjective Principal diagnosis: Acute exacerbation of COPD This is a 71-year-old white male with known history of COPD, patient usually sees Dr. Virk in the office for COPD. Patient is O2 dependent, but not prednisone dependent. Smoker, patient was admitted on 09/15/2016 with multiple symptoms including increased shortness of breath, occasional cough wheezing, feeling tired most of the time, and he was experiencing intermittent palpitations. Patient is normally on Xarelto, patient is a heavy drinker, drinks about one or 2 pints of vodka on a daily basis. Upon presentation, patient was noted to be in atrial fibrillation with RVR, chest x-ray showed no evidence of pneumonia, patient was placed on bronchodilators, antibiotics, steroids, and he was seen by cardiology for his atrial fibrillation which seems to be poorly controlled at present. And the patient was placed mostly on oral metoprolol. VQ scan is nondiagnostic, granted the patient is on Xarelto maintenance. Reevaluated today on 09/17/2016, continues to have cough wheezing shortness of breath. Not major improvement noted in the last 2 days. His atrial fibrillation seems to be however better controlled today, he is mostly in sinus rhythm and intermittently goes into atrial fibrillation, rates it seems to be better controlled compared to yesterday. Objective - Vital Signs Vital signs: Vital Signs Temp 98 F 09/17/16 11:56 Pulse 90 09/17/16 11:56 Resp 20 09/17/16 11:56 BP 86/63 09/17/16 11:56 Pulse Ox 95 09/17/16 11:56 Intake & Output 09/16/16 09/17/16 09/17/16 18:59 06:59 18:59 Intake Total 7872 683 2294 Output Total 400 200 Balance 880 0 1010 Weight 71.3 kg 71 kg Intake: IV 800 650 Sodium Chloride 0.9% 1, 800 650 000 ml @ 50 mls/hr IV . Q20H [facility] Rx#:[id number] Oral 480 200 360 Output: Urine 400 200 Other: Voiding Method Urinal Urinal # Voids 5 1 - Exam Physical Exam: Revealed a 71-year-old white male, frail, cachectic, looks chronically ill. HEENT:[Neck is supple.] [No neck masses.] [No thyromegaly.] [No JVD.] Chest: [Diminished breath sounds at the bases, rhonchi and wheezes noted bilaterally.] Cardiac Exam: [Irregular irregular rhythm Normal S1 and S2, no S3 gallop, no murmur.] Abdomen: [Soft, nontender, no megaly, no rebound, no guarding, normal bowel sounds.] Extremities: [No clubbing, no edema, no cyanosis.] Neurological Exam: [No focal neurologic deficit.] - Labs CBC & Chem 7: 09/17/16 07:30 09/17/16 07:30 Labs: Abnormal Lab Results - Last 24 Hours (Table) 09/16/16 09/16/16 09/17/16 Range/Units 16:36 21:03 06:15 RBC (4.30-5.90) m/uL Hgb (13.0-17.5) gm/dL Hct (39.0-53.0) % MCV (80.0-100.0) fL RDW (11.5-15.5) % BUN (9-20) mg/dL Creatinine (0.66-1.25) mg/dL Glucose (74-99) mg/dL POC Glucose (mg/dL) 153 H 153 H 131 H (75-99) mg/dL Calcium (8.4-10.2) mg/dL 09/17/16 09/17/16 09/17/16 Range/Units 07:30 07:30 11:41 RBC 2.78 L (4.30-5.90) m/uL Hgb 9.1 L (13.0-17.5) gm/dL Hct 29.3 L (39.0-53.0) % MCV 105.5 H (80.0-100.0) fL RDW 17.5 H (11.5-15.5) % BUN 31 H (9-20) mg/dL Creatinine 1.41 H (0.66-1.25) mg/dL Glucose 119 H (74-99) mg/dL POC Glucose (mg/dL) 169 H (75-99) mg/dL Calcium 7.7 L (8.4-10.2) mg/dL Assessment and Plan Plan: Impression: 1 Acute exacerbation of COPD 2 paroxysmal atrial fibrillation 3 chronic alcohol dependence patient is presently on the protocol for alcohol withdrawal. 4 alcoholic cardiomyopathy 5 essential hypertension 6 history of hyperlipidemia 7 chronic hypoxic respiratory failure secondary to COPD 8 chronic kidney injury, and renal failure 10 history of chronic anemia and history of GI blood losses noted on previous admission. Previous history of polypectomy 4. 11 history of diabetes type 2 12 history of amputation of his toes 13 history of delirium tremens Recommendation: Patient is on proper treatment plan for his COPD, but no significant improvement is noted in the last 24 hours, hence suggest keeping him on the same course of bronchodilators, not ready for any discharge planning at this point. We'll continue to follow. Time with Patient: Less than 30
--- NOTE | 2016-09-17 15:58 | PN ---
DATE OF SERVICE: 09/17/2016 PRESENTING COMPLAINT: Tired and short of breath. INTERVAL HISTORY: This is a patient who presented with an acute exacerbation of COPD as well as an extensive alcohol history. Patient is lying in bed today. Some ( ) breathing noted. Patient does not appear to be uncomfortable. He has a very loud barky cough. Patient does appear to be a bit restless. Patient appears less shaky and jittery today. Patient's last drink was about 72 hours ago. Review of systems done for constitutional, cardiovascular, GI, pulmonary, with relevant findings as above. CURRENT MEDICATIONS: 1. DuoNeb 3 mL q.4 hours p.r.n. 2. Symbicort 160/4.5 mcg 2 puffs inhalation b.i.d. 3. Lasix 40 mg p.o. b.i.d. 4. Levaquin 500 mg p.o. daily. 5. Solu-Medrol 40 mg IV push q.8 hours. PHYSICAL EXAMINATION: VITAL SIGNS: Temperature 98.2, pulse 81, respiratory rate 20, blood pressure 97/61, pulse ox 96% on 2.5 L nasal cannula. GENERAL APPEARANCE: Patient lying in bed. No shirt on. Pajama pants on. No apparent distress. Breathing pretty heavily. When coughing, he coughs very loudly; sounds like he is trying to cough up sputum but is unsuccessful. EYES: Pupils equal. Conjunctivae normal. NECK: JVD not raised. Mass not palpable. LUNGS: Sounds diminished bilaterally. Prolonged expiration and wheezing. CARDIOVASCULAR: First and second sounds normal, irregular. Trace edema. ABDOMEN: Soft, nontender. Liver and spleen not palpable. PSYCHIATRY: Alert and oriented x3. Mood and affect are anxious-appearing. NEUROLOGIC: Patient has generalized tremors today. Known history of alcohol use. INVESTIGATIONS: White blood cell count 6.5, hemoglobin 9.1, platelet count 155. Sodium 137, potassium 4.4. BUN 31, creatinine 1.41. Calcium 7.7. ASSESSMENT: 1. Acute severe chronic obstructive pulmonary disease exacerbation in a long-standing smoker, slow to respond. 2. Persistent atrial fibrillation, somewhat controlled. 3. Hyponatremia; suspect hypo-osmolar from decreased oral intake. 4. Acute renal failure, likely prerenal from decreased oral intake. 5. Early delirium tremens from alcoholism. 6. Hyperlipidemia. 7. Essential hypertension. 8. Chronic nicotine dependence. Patient is a smoker. 9. Alcoholic cardiomyopathy. PLAN: Will continue patient's IV fluids. Thallium increased to ( ) mg q.8 hours. Will continue to monitor patient's withdrawal symptoms and medicate appropriately. Pulmonology and Cardiology continue to follow. Will follow with them. Patient was seen and examined by nurse practitioner, Jodi Perez, and all the elements of the case were discussed with Dr. Norton.
[2016-09-17 16:27] LABS: Glucose,Whole Blood 274 mg/dL (75-99)
[2016-09-17] MEDS: DICYCLOMINE 10 MG CAP PO SCH ×2 (17:07→23:03)
[2016-09-17] MEDS: TAMSULOSIN 0.4 MG CAP.ER.24H PO SCH (21:05)
[2016-09-17] MEDS: PRAVASTATIN SODIUM 40 MG TAB PO SCH (21:05)
[2016-09-17 21:27] LABS: Glucose,Whole Blood 126 mg/dL (75-99)
--- NOTE | 2016-09-17 21:59 | PN ---
DATE OF SERVICE: 09/17/2016 ATTENDING NOTE: This patient was seen and examined by me earlier today and admitted with COPD exacerbation and some alcohol withdrawals. The patient actually looks better, did tolerate his diet, not shaky and ( ) On examination, afebrile, blood pressure 97/76, respirations 21, pulse ox 96% on 2.5L. LUNGS: Decreased breath sounds. Some expiratory crackles. Patient is awake, answering questions. INVESTIGATIONS: White count 6.5, hemoglobin 9.1. Patient's creatinine is 1.41. ASSESSMENT: 1. Acute severe chronic obstructive pulmonary disease exacerbation in a long-standing smoker, slow to respond. 2. Persistent atrial fibrillation, currently in sinus tachycardia. 3. Acute renal failure, likely prerenal, improving. 4. Acute delirium tremens from alcoholism, improving. PLAN: At this point, will cut back patient's Valium to 2.5 mg q.8. Also, patient's dose of Bentyl will be cut back. Patient is on amiodarone per Cardiology. Will also cut back on the dose of Solu-Medrol, keep on beta chidi.
[2016-09-18 07:28] LABS: Glucose,Whole Blood 167 mg/dL (75-99)
[2016-09-18] MEDS: IPRATROPIUM-ALBUTEROL 3 ML NEB INHALATION SCH ×4 (08:20→20:09)
[2016-09-18] MEDS: SYMBICORT 160-4.5 MCG INHALER INHALATION SCH ×2 (08:20→20:09)
[2016-09-18] MEDS: methylPREDNISolone SOD SUCCI 40 MG/ML 1 ML VIAL IV SCH ×3 (08:55→23:20)
[2016-09-18] MEDS: INSULIN LISPRO (humaLOG) 300 UNIT/3 ML VIAL SQ SCH ×4 (08:55→21:32)
[2016-09-18] MEDS: ASPIRIN 81 MG CHEW PO SCH (08:56)
[2016-09-18] MEDS: METOPROLOL TARTRATE 50 MG TAB PO SCH ×3 (08:56→21:36)
[2016-09-18] MEDS: DIAZEPAM 5 MG TAB PO SCH ×3 (08:56→21:30)
[2016-09-18] MEDS: DICYCLOMINE 10 MG CAP PO SCH ×4 (08:56→21:30)
[2016-09-18] MEDS: LEVOFLOXACIN 250 MG TAB PO SCH (08:56)
[2016-09-18] MEDS: AMIODARONE 200 MG TAB PO SCH ×2 (08:56→21:30)
[2016-09-18] MEDS: POTASSIUM CHLORIDE ER 20 MEQ TAB.ER PO SCH (08:57)
[2016-09-18] MEDS: RIVAROXABAN 10 MG TAB PO SCH (08:57)
[2016-09-18 10:50] LABS: Anisocytosis Slight; CH 32.1; CHCM 30.2; HCT 29.6 % (39.0-53.0); HDW 2.21; HGB 9.2 gm/dL (13.0-17.5); Hypochromasia Moderate; MCH 33.2 pg (25.0-35.0); MCHC 31.2 g/dL (31.0-37.0); MCV 106.6 fL (80.0-100.0); Macrocytosis Marked; Mean Platelet Volume 7.8; RBC 2.78 m/uL (4.30-5.90); RDW 17.4 % (11.5-15.5); WBC 7.7 k/uL (3.8-10.6)
[2016-09-18 11:08] LABS: Anion Gap 8 mmol/L; Blood Urea Nitrogen 37 mg/dL (9-20); Calcium 8.1 mg/dL (8.4-10.2); Carbon Dioxide 27 mmol/L (22-30); Chloride 104 mmol/L (98-107); Glucose 145 mg/dL (74-99); Non-African American GFR(MDRD) 59 (>60 ml/min/1.73 sqM); Sodium 139 mmol/L (137-145)
[2016-09-18 11:18] LABS: Potassium 4.4 mmol/L (3.5-5.1)
[2016-09-18] MEDS: THIAMINE 100 MG TAB PO SCH ×2 (12:30→16:24)
[2016-09-18 12:31] LABS: Glucose,Whole Blood 164 mg/dL (75-99)
--- NOTE | 2016-09-18 14:16 | P.PN ---
Subjective This is a 71-year-old white male with known history of COPD, patient usually sees Dr. Virk in the office for COPD. Patient is O2 dependent, but not prednisone dependent. Smoker, patient was admitted on 09/15/2016 with multiple symptoms including increased shortness of breath, occasional cough wheezing, feeling tired most of the time, and he was experiencing intermittent palpitations. Patient is normally on Xarelto, patient is a heavy drinker, drinks about one or 2 pints of vodka on a daily basis. Upon presentation, patient was noted to be in atrial fibrillation with RVR, chest x-ray showed no evidence of pneumonia, patient was placed on bronchodilators, antibiotics, steroids, and he was seen by cardiology for his atrial fibrillation which seems to be poorly controlled at present. And the patient was placed mostly on oral metoprolol. VQ scan is nondiagnostic, granted the patient is on Xarelto maintenance. Reevaluated today on 09/17/2016, continues to have cough wheezing shortness of breath. Not major improvement noted in the last 2 days. His atrial fibrillation seems to be however better controlled today, he is mostly in sinus rhythm and intermittently goes into atrial fibrillation, rates it seems to be better controlled compared to yesterday. The patient was seen again today 09/18/2016 in follow-up on the regular medical floor. He is awake and alert in no acute distress. He does have some dyspnea on minimal exertion. A nonproductive cough. Still wheezy. He is maintaining good O2 saturations in the upper 90s on 3 L/m per nasal cannula. He is afebrile. Objective - Vital Signs Vital signs: Vital Signs Temp 96.9 F L 09/18/16 07:00 Pulse 72 09/18/16 11:21 Resp 16 09/18/16 07:00 BP 129/60 09/18/16 07:00 Pulse Ox 97 09/18/16 07:00 Intake & Output 09/17/16 09/18/16 09/18/16 18:59 06:59 18:59 Intake Total 1370 250 Output Total 350 Balance 1370 -100 Intake: IV 650 Sodium Chloride 0.9% 1, 650 000 ml @ 50 mls/hr IV . Q20H [id number] Rx#:[id number] Oral 720 250 Output: Urine 350 Other: Voiding Method Urinal Urinal Urinal - Exam GENERAL EXAM: Alert, active, comfortable in no apparent distress. HEAD: Normocephalic. EYES: Normal reaction of pupils, equal size. NOSE: Clear with pink turbinates. THROAT: No erythema or exudates. NECK: No masses, no JVD. CHEST: No chest wall deformity. LUNGS: Equal air entry with bilateral end expiratory wheeze. Diminished.. CVS: S1 and S2 normal with no audible murmurs, regular rhythm. ABDOMEN: No hepatosplenomegaly, normal bowel sounds, no guarding or rigidity. SPINE: No scoliosis or deformity SKIN: No rashes CENTRAL NERVOUS SYSTEM: No focal deficits, tone is normal in all 4 extremities. *Midis: There is no significant peripheral edema. No clubbing, no cyanosis. Peripheral pulses are intact. - Labs CBC & Chem 7: 09/18/16 10:14 09/18/16 10:11 Labs: Abnormal Lab Results - Last 24 Hours (Table) 09/17/16 09/17/16 09/18/16 Range/Units 16:22 20:56 06:58 RBC (4.30-5.90) m/uL Hgb (13.0-17.5) gm/dL Hct (39.0-53.0) % MCV (80.0-100.0) fL RDW (11.5-15.5) % BUN (9-20) mg/dL Glucose (74-99) mg/dL POC Glucose (mg/dL) 274 H 126 H 167 H (75-99) mg/dL Calcium (8.4-10.2) mg/dL 09/18/16 09/18/16 09/18/16 Range/Units 10:11 10:14 12:27 RBC 2.78 L (4.30-5.90) m/uL Hgb 9.2 L (13.0-17.5) gm/dL Hct 29.6 L (39.0-53.0) % MCV 106.6 H (80.0-100.0) fL RDW 17.4 H (11.5-15.5) % BUN 37 H (9-20) mg/dL Glucose 145 H (74-99) mg/dL POC Glucose (mg/dL) 164 H (75-99) mg/dL Calcium 8.1 L (8.4-10.2) mg/dL Assessment and Plan Plan: Impression: 1 Acute exacerbation of COPD 2 paroxysmal atrial fibrillation 3 chronic alcohol dependence patient is presently on the protocol for alcohol withdrawal. 4 alcoholic cardiomyopathy 5 essential hypertension 6 history of hyperlipidemia 7 chronic hypoxic respiratory failure secondary to COPD 8 chronic kidney injury, and renal failure 10 history of chronic anemia and history of GI blood losses noted on previous admission. Previous history of polypectomy 4. 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 Tejeda. He is improved today as compared to yesterday. We'll continue with his current COPD exacerbation treatments. We'll increase his activity as tolerated. We'll continue to follow.
[2016-09-18 17:05] LABS: Glucose,Whole Blood 147 mg/dL (75-99)
[2016-09-18 21:04] LABS: Glucose,Whole Blood 167 mg/dL (75-99)
[2016-09-18] MEDS: PRAVASTATIN SODIUM 40 MG TAB PO SCH (21:30)
[2016-09-18] MEDS: TAMSULOSIN 0.4 MG CAP.ER.24H PO SCH (21:31)
--- NOTE | 2016-09-18 22:44 | PN ---
DATE OF SERVICE: 09/18/2016 PRESENTING COMPLAINT: Tired and short of breath. INTERVAL HISTORY: This is a patient who presented with an acute exacerbation of COPD as well as extensive alcohol history. Patient is lying in bed today, continues to have mildly labored breathing. Patient does not appear to be uncomfortable. Patient continues to have a loud barky productive cough. Patient is less restless today. Patient appears less shaky and jittery today as well. Review of systems done for constitutional, cardiovascular, GI, pulmonary, with relevant findings as above. CURRENT MEDICATIONS: 1. DuoNeb 3 mL q.4 hours p.r.n. 2. Symbicort 160/4.5 mcg 2 puffs inhalation b.i.d. 3. Lasix 40 mg p.o. b.i.d. 4. Levaquin 500 mg p.o. daily. 5. Solu-Medrol 40 mg IV push q.8h. PHYSICAL EXAMINATION: VITAL SIGNS: Temperature 96.9, pulse 73, respiratory rate 16, blood pressure 129/60, oxygen saturation 97% on 3L nasal cannula. GENERAL APPEARANCE: Patient lying in bed, comfortable-appearing, occasional cough noted, but otherwise no distress. EYES: Pupils equal. Conjunctivae normal. NECK: JVD not raised. Mass not palpable. LUNGS: Diminished bilaterally. Better air movement today. RESPIRATORY: Effort normal. CARDIOVASCULAR: First and second sounds noted. Trace edema noted. ABDOMEN: Soft, nontender. Liver and spleen not palpable. PSYCHIATRY: Alert and alert and oriented x3. Mood and affect normal. Hemoglobin 9.2, platelet count 168. Calcium 8.1. Blood glucose monitoring 164. ASSESSMENT: 1. Acute severe, chronic obstructive pulmonary disease exacerbation in a long-standing smoker, slow to respond. 2. Persistent atrial fibrillation, somewhat controlled. 3. Hyponatremia, suspect hypoosmolar from decreased oral intake. 4. Acute renal failure, likely prerenal from decreased oral intake. 5. Early delirium tremens from alcoholism, resolved. 6. Hyperlipidemia. 7. Essential hypertension. 8. Chronic nicotine dependence. Patient is a smoker. 9. Alcoholic cardiomyopathy. PLAN: We will continue patient's IV fluids. Current medication and treatment regimen will be followed, as patient has not seen significant improvements. Pulmonology and Cardiology continue to follow. Patient is not yet ready for discharge planning. Patient was seen and examined by Nurse Practitioner Jodi Perez, and all elements of the case were discussed with Dr. Norton. I performed a history and physical examination of this patient and discussed the same with the dictator. I agree with the dictator's note. Any additional findings/opinions, etc. will be noted.
[2016-09-19] MEDS: IPRATROPIUM-ALBUTEROL 3 ML NEB INHALATION PRN (02:54)
[2016-09-19 07:26] LABS: Glucose,Whole Blood 155 mg/dL (75-99)
[2016-09-19] MEDS: IPRATROPIUM-ALBUTEROL 3 ML NEB INHALATION SCH ×4 (07:28→19:48)
[2016-09-19] MEDS: SYMBICORT 160-4.5 MCG INHALER INHALATION SCH ×2 (07:28→19:48)
[2016-09-19] MEDS: POTASSIUM CHLORIDE ER 20 MEQ TAB.ER PO SCH (08:05)
[2016-09-19] MEDS: DIAZEPAM 5 MG TAB PO SCH ×3 (08:05→21:40)
[2016-09-19] MEDS: METOPROLOL TARTRATE 50 MG TAB PO SCH ×3 (08:05→21:41)
[2016-09-19] MEDS: LEVOFLOXACIN 250 MG TAB PO SCH (08:05)
[2016-09-19] MEDS: DICYCLOMINE 10 MG CAP PO SCH ×4 (08:05→21:40)
[2016-09-19] MEDS: AMIODARONE 200 MG TAB PO SCH ×2 (08:05→21:40)
[2016-09-19] MEDS: RIVAROXABAN 10 MG TAB PO SCH (08:05)
[2016-09-19] MEDS: methylPREDNISolone SOD SUCCI 40 MG/ML 1 ML VIAL IV SCH (08:05)
[2016-09-19] MEDS: ASPIRIN 81 MG CHEW PO SCH (08:06)
[2016-09-19] MEDS: INSULIN LISPRO (humaLOG) 300 UNIT/3 ML VIAL SQ SCH ×4 (08:08→21:41)
[2016-09-19 10:44] LABS: Anisocytosis Slight; CH 32.2; HCT 28.8 % (39.0-53.0); HDW 2.26; HGB 9.2 gm/dL (13.0-17.5); Hypochromasia Slight; MCH 33.3 pg (25.0-35.0); MCV 104.2 fL (80.0-100.0); Macrocytosis Moderate; RBC 2.76 m/uL (4.30-5.90); RDW 17.3 % (11.5-15.5); WBC 6.5 k/uL (3.8-10.6)
[2016-09-19 10:49] LABS: Anion Gap 6 mmol/L; Blood Urea Nitrogen 37 mg/dL (9-20); Calcium 8.3 mg/dL (8.4-10.2); Carbon Dioxide 28 mmol/L (22-30); Chloride 103 mmol/L (98-107); Glucose 195 mg/dL (74-99); Non-African American GFR(MDRD) >60 (>60 ml/min/1.73 sqM); Potassium 4.5 mmol/L (3.5-5.1); Sodium 137 mmol/L (137-145)
--- NOTE | 2016-09-19 10:50 | PN ---
DATE OF SERVICE: 09/18/2016 ATTENDING NOTE: This patient examined by me on 09/18/16. I reviewed the note of my nurse practitioner, Ms. Perez. Discussed and agree with the same. Patient admitted with COPD exacerbation, atrial fibrillation, acute renal failure. DTs are actually improved. Overall looking better. Breathing is getting better. ON EXAM: Afebrile. LUNGS: Diminished breath sounds. No more crackles. PSYCH: More awake, alert, talking appropriately. INVESTIGATIONS: White count 7.7, BUN 37, creatinine 1.22. ASSESSMENT: 1. Chronic obstructive pulmonary disease exacerbation, improving. 2. Acute renal failure, improving. 3. Persistent atrial fibrillation. PLAN: Overall the patient is doing better. Continue current medication and treatment plan. Care was discussed with the patient. Will follow.
[2016-09-19] MEDS: THIAMINE 100 MG TAB PO SCH ×2 (12:13→17:02)
[2016-09-19] MEDS: HYDROcodone/APAP 10-325MG 1 EACH TAB PO PRN (12:15)
[2016-09-19 12:43] LABS: Glucose,Whole Blood 163 mg/dL (75-99)
[2016-09-19] MEDS: SODIUM CHLORIDE 0.9% 1,000 ML IV SCH (13:31)
--- NOTE | 2016-09-19 13:41 | P.PN ---
Subjective Principal diagnosis: Acute exacerbation of COPD, atrial fibrillation with RVR This is a 71-year-old white male with known history of COPD, patient usually sees Dr. Virk in the office for COPD. Patient is O2 dependent, but not prednisone dependent. Smoker, patient was admitted on 09/15/2016 with multiple symptoms including increased shortness of breath, occasional cough wheezing, feeling tired most of the time, and he was experiencing intermittent palpitations. Patient is normally on Xarelto, patient is a heavy drinker, drinks about one or 2 pints of vodka on a daily basis. Upon presentation, patient was noted to be in atrial fibrillation with RVR, chest x-ray showed no evidence of pneumonia, patient was placed on bronchodilators, antibiotics, steroids, and he was seen by cardiology for his atrial fibrillation which seems to be poorly controlled at present. And the patient was placed mostly on oral metoprolol. VQ scan is nondiagnostic, granted the patient is on Xarelto maintenance. Reevaluated today on 09/17/2016, continues to have cough wheezing shortness of breath. Not major improvement noted in the last 2 days. His atrial fibrillation seems to be however better controlled today, he is mostly in sinus rhythm and intermittently goes into atrial fibrillation, rates it seems to be better controlled compared to yesterday. The patient was seen again today 09/18/2016 in follow-up on the regular medical floor. He is awake and alert in no acute distress. He does have some dyspnea on minimal exertion. A nonproductive cough. Still wheezy. He is maintaining good O2 saturations in the upper 90s on 3 L/m per nasal cannula. He is afebrile. Patient was seen again on 09/19/2016, continues to have intermittent episodes of wheezing, coughing, some shortness of breath, remains in atrial fibrillation, rate seems to be better controlled. On physical examination, there is some rhonchi and wheezes, but overall improved compared to a few days ago. Abscess showed WBC count of 6.5 hemoglobin of 9.2 electrolytes are normal BUN is 37 creatinine is 1.10 Objective - Vital Signs Vital signs: Vital Signs Temp 96.9 F L 09/19/16 07:00 Pulse 80 09/19/16 11:31 Resp 19 09/19/16 07:00 BP 128/67 09/19/16 07:00 Pulse Ox 100 09/19/16 07:29 Intake & Output 09/18/16 09/19/16 09/19/16 18:59 06:59 18:59 Intake Total 600 Balance 600 Intake: Oral 600 Other: Voiding Method Urinal Urinal Toilet # Voids 1 1 # Bowel Movements 1 - Exam GENERAL EXAM: Alert, active, comfortable in no apparent distress. HEAD: Normocephalic. EYES: Normal reaction of pupils, equal size. NOSE: Clear with pink turbinates. THROAT: No erythema or exudates. NECK: No masses, no JVD. CHEST: No chest wall deformity. LUNGS: Equal air entry with bilateral end expiratory wheeze. Diminished.. CVS: S1 and S2 normal with no audible murmurs, irregular irregular rhythm ABDOMEN: No hepatosplenomegaly, normal bowel sounds, no guarding or rigidity. SPINE: No scoliosis or deformity SKIN: No rashes CENTRAL NERVOUS SYSTEM: No focal deficits, tone is normal in all 4 extremities. *Midis: There is no significant peripheral edema. No clubbing, no cyanosis. Peripheral pulses are intact. - Labs CBC & Chem 7: 09/19/16 09:53 09/19/16 09:53 Labs: Abnormal Lab Results - Last 24 Hours (Table) 09/18/16 09/18/16 09/19/16 Range/Units 16:59 20:49 07:13 RBC (4.30-5.90) m/uL Hgb (13.0-17.5) gm/dL Hct (39.0-53.0) % MCV (80.0-100.0) fL RDW (11.5-15.5) % BUN (9-20) mg/dL Glucose (74-99) mg/dL POC Glucose (mg/dL) 147 H 167 H 155 H (75-99) mg/dL Calcium (8.4-10.2) mg/dL 09/19/16 09/19/16 09/19/16 Range/Units 09:53 09:53 12:37 RBC 2.76 L (4.30-5.90) m/uL Hgb 9.2 L (13.0-17.5) gm/dL Hct 28.8 L (39.0-53.0) % MCV 104.2 H (80.0-100.0) fL RDW 17.3 H (11.5-15.5) % BUN 37 H (9-20) mg/dL Glucose 195 H (74-99) mg/dL POC Glucose (mg/dL) 163 H (75-99) mg/dL Calcium 8.3 L (8.4-10.2) mg/dL Assessment and Plan Plan: 1 Acute exacerbation of COPD 2 paroxysmal atrial fibrillation 3 chronic alcohol dependence patient is presently on the protocol for alcohol withdrawal. 4 alcoholic cardiomyopathy 5 essential hypertension 6 history of hyperlipidemia 7 chronic hypoxic respiratory failure secondary to COPD 8 chronic kidney injury, and renal failure 10 history of chronic anemia and history of GI blood losses noted on previous admission. Previous history of polypectomy 4. 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 Continue to follow.
--- NOTE | 2016-09-19 13:46 | P.PN ---
Subjective This is a 71-year-old white male with known history of COPD, patient usually sees Dr. Virk in the office for COPD. Patient is O2 dependent, but not prednisone dependent. Smoker, patient was admitted on 09/15/2016 with multiple symptoms including increased shortness of breath, occasional cough wheezing, feeling tired most of the time, and he was experiencing intermittent palpitations. Patient is normally on Xarelto, patient is a heavy drinker, drinks about one or 2 pints of vodka on a daily basis. Upon presentation, patient was noted to be in atrial fibrillation with RVR, chest x-ray showed no evidence of pneumonia, patient was placed on bronchodilators, antibiotics, steroids, and he was seen by cardiology for his atrial fibrillation which seems to be poorly controlled at present. And the patient was placed mostly on oral metoprolol. VQ scan is nondiagnostic, granted the patient is on Xarelto maintenance. Reevaluated today on 09/17/2016, continues to have cough wheezing shortness of breath. Not major improvement noted in the last 2 days. His atrial fibrillation seems to be however better controlled today, he is mostly in sinus rhythm and intermittently goes into atrial fibrillation, rates it seems to be better controlled compared to yesterday. The patient was seen again today 09/18/2016 in follow-up on the regular medical floor. He is awake and alert in no acute distress. He does have some dyspnea on minimal exertion. A nonproductive cough. Still wheezy. He is maintaining good O2 saturations in the upper 90s on 3 L/m per nasal cannula. He is afebrile. The patient is seen again today 09/19/2016 in follow-up on the regular medical floor. He is currently awake and alert in no acute distress. He denies any worsening shortness of breath at this time. He has a loose nonproductive cough. No chills or night sweats. He remains afebrile. He is maintaining good O2 saturations in the high 90s on 3 L/m per nasal cannula. Objective - Vital Signs Vital signs: Vital Signs Temp 96.9 F L 09/19/16 07:00 Pulse 80 09/19/16 11:31 Resp 19 09/19/16 07:00 BP 128/67 09/19/16 07:00 Pulse Ox 100 09/19/16 07:29 Intake & Output 09/18/16 09/19/16 09/19/16 18:59 06:59 18:59 Intake Total 600 Balance 600 Intake: Oral 600 Other: Voiding Method Urinal Urinal Toilet # Voids 1 1 # Bowel Movements 1 - Exam GENERAL EXAM: Alert, active, comfortable in no apparent distress. HEAD: Normocephalic. EYES: Normal reaction of pupils, equal size. NOSE: Clear with pink turbinates. THROAT: No erythema or exudates. NECK: No masses, no JVD. CHEST: No chest wall deformity. LUNGS: Equal air entry with bilateral end expiratory wheeze. Diminished.. CVS: S1 and S2 normal with no audible murmurs, regular rhythm. ABDOMEN: No hepatosplenomegaly, normal bowel sounds, no guarding or rigidity. SPINE: No scoliosis or deformity SKIN: No rashes CENTRAL NERVOUS SYSTEM: No focal deficits, tone is normal in all 4 extremities. Extremities: There is no significant peripheral edema. No clubbing, no cyanosis. Peripheral pulses are intact. - Labs CBC & Chem 7: 09/19/16 09:53 09/19/16 09:53 Labs: Abnormal Lab Results - Last 24 Hours (Table) 09/18/16 09/18/16 09/19/16 Range/Units 16:59 20:49 07:13 RBC (4.30-5.90) m/uL Hgb (13.0-17.5) gm/dL Hct (39.0-53.0) % MCV (80.0-100.0) fL RDW (11.5-15.5) % BUN (9-20) mg/dL Glucose (74-99) mg/dL POC Glucose (mg/dL) 147 H 167 H 155 H (75-99) mg/dL Calcium (8.4-10.2) mg/dL 09/19/16 09/19/16 09/19/16 Range/Units 09:53 09:53 12:37 RBC 2.76 L (4.30-5.90) m/uL Hgb 9.2 L (13.0-17.5) gm/dL Hct 28.8 L (39.0-53.0) % MCV 104.2 H (80.0-100.0) fL RDW 17.3 H (11.5-15.5) % BUN 37 H (9-20) mg/dL Glucose 195 H (74-99) mg/dL POC Glucose (mg/dL) 163 H (75-99) mg/dL Calcium 8.3 L (8.4-10.2) mg/dL Assessment and Plan Plan: Impression: 1 Acute exacerbation of COPD 2 paroxysmal atrial fibrillation, anticoagulated with Xarelto. 3 chronic alcohol dependence patient is presently on the protocol for alcohol withdrawal. 4 alcoholic cardiomyopathy 5 essential hypertension 6 history of hyperlipidemia 7 chronic hypoxic respiratory failure secondary to COPD 8 chronic kidney injury, and renal failure 10 history of chronic anemia and history of GI blood losses noted on previous admission. Previous history of polypectomy 4. 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 Tejeda. We'll continue with his current COPD exacerbation treatment. Not quite ready for discharge. We'll increase his activity as tolerated. We'll continue to follow.
[2016-09-19] MEDS: predniSONE 20 MG TAB PO SCH (13:55)
[2016-09-19 17:26] LABS: Glucose,Whole Blood 141 mg/dL (75-99)
[2016-09-19 20:51] LABS: Glucose,Whole Blood 169 mg/dL (75-99)
[2016-09-19] MEDS: PRAVASTATIN SODIUM 40 MG TAB PO SCH (21:40)
[2016-09-19] MEDS: TAMSULOSIN 0.4 MG CAP.ER.24H PO SCH (21:40)
--- NOTE | 2016-09-19 23:19 | PN ---
DATE OF SERVICE: 09/19/2016 PRESENTING COMPLAINT: Tired and short of breath. INTERVAL HISTORY: This is a patient who presented with an acute exacerbation of COPD as well as extensive alcohol history. Patient is lying in bed today. Breathing is less labored. Patient appears comfortable. Patient continues to have a loud, barky, productive cough. Sputum production is clear. Patient is less restless today. Review of systems was done for constitutional, cardiovascular, GI, pulmonary, with relevant findings as above. CURRENT MEDICATIONS: 1. DuoNeb 3 mL q.4 hours p.r.n. 2. Symbicort 160/4.5 mcg 2 puffs inhalation b.i.d. 3. Lasix 40 mg p.o. b.i.d. 4. Levaquin 500 mg p.o. daily. 5. Solu-Medrol 40 mg IV push q.8 hours. PHYSICAL EXAMINATION: VITAL SIGNS: Temperature 97.3, pulse 75, respiratory rate 19, blood pressure 111/72, oxygen saturation 94% on room air. GENERAL APPEARANCE: Patient is lying in bed; looks relaxed. EYES: Pupils equal. Conjunctivae normal. NECK: JVD not raised. Mass not palpable. LUNGS: Breath sounds diminished with crackles noted to the bases. RESPIRATORY: Effort normal, mildly labored. CARDIOVASCULAR: First and second sounds noted. Irregular. No edema. ABDOMEN: Soft, nontender. Liver and spleen not palpable. PSYCHIATRY: Alert and oriented x3. Mood and affect are normal. INVESTIGATIONS: Hemoglobin 9.2, platelet count 151. BUN 37, creatinine 1.10. Blood glucose 195. ASSESSMENT: 1. Acute severe chronic obstructive pulmonary disease exacerbation in a long-standing smoker, improving. 2. Persistent atrial fibrillation, somewhat controlled. 3. Hyponatremia. Suspect hypo-osmolar from decreased oral intake. 4. Acute renal failure, likely prerenal, from decreased oral intake. 5. Early delirium tremens from alcoholism, resolved. 6. Hyperlipidemia. 7. Essential hypertension. 8. Chronic nicotine dependence. Patient is a smoker. 9. Alcoholic cardiomyopathy. PLAN: IV fluids will be stopped. IV Solu-Medrol will be switched to oral with a taper. Pulmonology and Cardiology continue to follow. Patient is up ambulating. Encouraged to ambulate in the hallways. Will follow. Patient was seen and examined by nurse practitioner Jodi Perez, and all elements of the case were discussed with Dr. Norton.
[2016-09-20] MEDS: IPRATROPIUM-ALBUTEROL 3 ML NEB INHALATION PRN (03:30)
[2016-09-20 07:26] LABS: Glucose,Whole Blood 116 mg/dL (75-99)
[2016-09-20] MEDS: INSULIN LISPRO (humaLOG) 300 UNIT/3 ML VIAL SQ SCH ×2 (07:26→12:28)
[2016-09-20 07:38] VITALS: BP 112/62; TEMP 97.7
[2016-09-20] MEDS: predniSONE 20 MG TAB PO SCH (07:46)
[2016-09-20] MEDS: ASPIRIN 81 MG CHEW PO SCH (07:46)
[2016-09-20] MEDS: METOPROLOL TARTRATE 50 MG TAB PO SCH (07:46)
[2016-09-20] MEDS: RIVAROXABAN 10 MG TAB PO SCH (07:46)
[2016-09-20] MEDS: AMIODARONE 200 MG TAB PO SCH (07:46)
[2016-09-20] MEDS: POTASSIUM CHLORIDE ER 20 MEQ TAB.ER PO SCH (07:46)
[2016-09-20] MEDS: DICYCLOMINE 10 MG CAP PO SCH ×2 (07:46→12:29)
[2016-09-20] MEDS: DIAZEPAM 5 MG TAB PO SCH (07:46)
[2016-09-20] MEDS: HYDROcodone/APAP 10-325MG 1 EACH TAB PO PRN (08:43)
[2016-09-20 08:50] VITALS: RESP 22
[2016-09-20] MEDS ORDERED: LEVOFLOXACIN 500 MG TAB PO SCH (09:00)
[2016-09-20] MEDS: IPRATROPIUM-ALBUTEROL 3 ML NEB INHALATION SCH (09:17)
[2016-09-20] MEDS: SYMBICORT 160-4.5 MCG INHALER INHALATION SCH (09:17)
[2016-09-20 09:34] VITALS: PULSE 80
[2016-09-20] MEDS: THIAMINE 100 MG TAB PO SCH (11:33)
--- NOTE | 2016-09-20 11:44 | P.PN ---
Subjective This is a 71-year-old white male with known history of COPD, patient usually sees Dr. Virk in the office for COPD. Patient is O2 dependent, but not prednisone dependent. Smoker, patient was admitted on 09/15/2016 with multiple symptoms including increased shortness of breath, occasional cough wheezing, feeling tired most of the time, and he was experiencing intermittent palpitations. Patient is normally on Xarelto, patient is a heavy drinker, drinks about one or 2 pints of vodka on a daily basis. Upon presentation, patient was noted to be in atrial fibrillation with RVR, chest x-ray showed no evidence of pneumonia, patient was placed on bronchodilators, antibiotics, steroids, and he was seen by cardiology for his atrial fibrillation which seems to be poorly controlled at present. And the patient was placed mostly on oral metoprolol. VQ scan is nondiagnostic, granted the patient is on Xarelto maintenance. Reevaluated today on 09/17/2016, continues to have cough wheezing shortness of breath. Not major improvement noted in the last 2 days. His atrial fibrillation seems to be however better controlled today, he is mostly in sinus rhythm and intermittently goes into atrial fibrillation, rates it seems to be better controlled compared to yesterday. The patient was seen again today 09/18/2016 in follow-up on the regular medical floor. He is awake and alert in no acute distress. He does have some dyspnea on minimal exertion. A nonproductive cough. Still wheezy. He is maintaining good O2 saturations in the upper 90s on 3 L/m per nasal cannula. He is afebrile. The patient is seen again today 09/19/2016 in follow-up on the regular medical floor. He is currently awake and alert in no acute distress. He denies any worsening shortness of breath at this time. He has a loose nonproductive cough. No chills or night sweats. He remains afebrile. He is maintaining good O2 saturations in the high 90s on 3 L/m per nasal cannula. Objective - Vital Signs Vital signs: Vital Signs Temp 97.7 F 09/20/16 07:00 Pulse 80 09/20/16 09:33 Resp 22 09/20/16 08:50 BP 112/62 09/20/16 07:00 Pulse Ox 96 09/20/16 08:50 Intake & Output 09/19/16 09/20/16 09/20/16 18:59 06:59 18:59 Intake Total 550 Output Total 200 100 Balance 350 -100 Intake: Oral 550 Output: Urine 200 100 Other: Voiding Method Toilet Toilet Toilet # Voids 3 2 1 # Bowel Movements 1 - Exam GENERAL EXAM: Alert, active, comfortable in no apparent distress. HEAD: Normocephalic. EYES: Normal reaction of pupils, equal size. NOSE: Clear with pink turbinates. THROAT: No erythema or exudates. NECK: No masses, no JVD. CHEST: No chest wall deformity. LUNGS: Equal air entry with bilateral end expiratory wheeze. Diminished.. CVS: S1 and S2 normal with no audible murmurs, regular rhythm. ABDOMEN: No hepatosplenomegaly, normal bowel sounds, no guarding or rigidity. SPINE: No scoliosis or deformity SKIN: No rashes CENTRAL NERVOUS SYSTEM: No focal deficits, tone is normal in all 4 extremities. Extremities: There is no significant peripheral edema. No clubbing, no cyanosis. Peripheral pulses are intact. - Labs CBC & Chem 7: 09/19/16 09:53 09/19/16 09:53 Labs: Abnormal Lab Results - Last 24 Hours (Table) 09/19/16 09/19/16 09/19/16 Range/Units 12:37 17:19 20:49 POC Glucose (mg/dL) 163 H 141 H 169 H (75-99) mg/dL 09/20/16 Range/Units 07:25 POC Glucose (mg/dL) 116 H (75-99) mg/dL Assessment and Plan Plan: Impression: 1 Acute exacerbation of COPD 2 paroxysmal atrial fibrillation, anticoagulated with Xarelto. 3 chronic alcohol dependence patient is presently on the protocol for alcohol withdrawal. 4 alcoholic cardiomyopathy 5 essential hypertension 6 history of hyperlipidemia 7 chronic hypoxic respiratory failure secondary to COPD 8 chronic kidney injury, and renal failure 10 history of chronic anemia and history of GI blood losses noted on previous admission. Previous history of polypectomy 4. 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 Fabi: The patient was seen and evaluated by Dr. Tejeda. He is cleared for discharge from the pulmonary standpoint. He does have home O2 and a nebulizer at home. We'll continue with his current treatments. We'll continue with the prednisone taper. He is also again educated regarding the importance of complete smoking cessation. Smoking counseling 3-10 minutes. He is also educated regarding the importance of complete alcohol cessation. He'll follow-up in our office in 1-2 weeks' time. He is encouraged to call sooner with any recurrence of symptoms or other questions or concerns.
[2016-09-20 12:08] LABS: Glucose,Whole Blood 163 mg/dL (75-99)
--- NOTE | 2016-09-20 18:59 | PN ---
DATE OF SERVICE: 09/19/2016 ATTENDING NOTE: This patient was seen and examined by me on 09/19/16. I reviewed the notes of my nurse practitioner, Ms. Perez. Discussed and agree with the same. Patient admitted with COPD exacerbation. Breathing is getting better. Tolerating a diet. Has been up to the bathroom. Sputum production is clear if any. Overall feels much better. On exam, afebrile. Blood pressure 107/72, pulse ox noted. GENERAL APPEARANCE: Lying in bed, more comfortable. LUNGS: Decreased breath sounds. Improved air entry. CARDIOVASCULAR: First and second sounds normal. ABDOMEN: Soft, nontender. PSYCH: Awake, answering questions. ASSESSMENT: 1. Chronic obstructive pulmonary disease exacerbation in longstanding smoker, improving. 2. Persistent atrial fibrillation, controlled. 3. Hypernatremia, improving. 4. Delirium tremens, improved. PLAN: Care was discussed with the patient. Should be switched over prednisone and can hopefully discharge in 24 hours.
--- NOTE | 2016-09-20 22:48 | DS ---
DATE OF ADMISSION: 09/14/2016 DATE OF DISCHARGE: 09/20/2016 FINAL DIAGNOSES: 1. Acute chronic obstructive pulmonary disease exacerbation in a long-standing smoker. 2. Persistent atrial fibrillation, present on admission, uncontrolled. 3. Hyperlipidemia. 4. Essential hypertension. 5. Chronic nicotine dependence in a smoker. 6. Chronic alcohol dependence. 7. Early delirium tremens from alcoholism. 8. Hyponatremia; suspect hypo-osmolar from decreased salt intake. 9. Early delirium tremens from alcoholism, present on admission. HOSPITAL COURSE: This patient is a smoker; also drinks alcohol. He presented with COPD exacerbation, atrial fibrillation, uncontrolled. Patient responded well to steroids and nebulized bronchodilators. He was also treated for early DTs. At the time of discharge he was doing better, tolerating a diet. On examination, lungs have decreased breath sounds. PSYCH: Alert oriented x3. Patient was counseled about smoking and against alcohol. Patient's hemoglobin is 9.2; BUN 37, creatinine 1.10. CONSULTATIONS: 1. Dr. Isacc Mcpherson from Cardiology. 2. Dr. Tejeda from Pulmonary. DISCHARGE MEDICATIONS: 1. Alamo 10 one tablet q.6 p.r.n. 2. Symbicort 160/4.5 two puffs b.i.d. 3. Flomax 0.4 mg at bedtime. 4. ProAir 1 to 2 puffs q.6 p.r.n. 5. Aspirin 81 mg p.o. daily. 6. Xarelto 20 mg p.o. daily. 7. Cordarone 400 mg twice a day for 7 days, then 400 mg a day. 8. Bentyl 10 mg p.o. t.i.d. 9. Disulfiram 500 p.o. daily, then 250 mg a day. 10. DuoNeb t.i.d. 11. Lopressor 50 mg p.o. b.i.d.; new dose. 12. Pravachol 40 mg at bedtime. 13. Thiamine 100 mg p.o. daily. 14. Prednisone taper. 15. Home oxygen to continue. Follow up with Dr. Virk on October 02, 2016. Follow up with Dr. Darrick Georges on September 26, 2016. Follow up with Dr. Houser in one week. LABS: BMP in one week. Home oxygen as before.
--- NOTE | 2016-09-25 10:30 | CDI ---
In responding to this query, please exercise your independent professional judgment. The [facility] Coding Staff and Clinical Documentation Specialists appreciate your assistance in clarifying documentation, maintaining compliance with coding guidelines, accurately documenting patients condition and capturing severity of illness. The fact that a question is asked does not imply that any particular answer is desired or expected. Communication forms are a method of clarifying documentation and are not made part of the Legal Health Record. Thank you in advance for your clarification. Last Revision, February 2015 Soto Posey [address] [facility] [place] [address] Documentation Clarification Form Date: 09/25/2016 10:19:00 AM From: Remedios Rojas [facility] & Breann Santa, [employer] Breann = [phone] Admit Date: 09/14/2016 10:08:00 PM Patient Name: Juan Carlos Hills Visit Number: [id number] Discharge Date: 09-20-16 Dr. Martin Norton Please confirm if patient has a stage II pressure ulcer of buttocks. A pressure ulcer was documented in the nursing notes and dietary notes. See all options to answer this query below: . History/Risk Factors: alcoholism, cachetic, smoker, hyponatremic, history of falls, CKD III, cardiomyopathy, atrial fib, diabetes, chronic hypoxia, acute renal failure, HTN, COPD exacerbation, amputated toes, spondylosis, hx CHF Location: buttocks Wound description: Dietitian states: "underweight, poor wound healing secondary to multiple chronic medical conditions--Stage II pressure ulcer". Nursing also mentions on 09-19-16 physical assessment "stage II pressure ulcer, buttocks". Treatment: Naman flavored beverage BID Consults: Registered Dietitian on 09-16-16 Elements for accurate and compliant documentation of an ulcer: * The location/laterality of the ulcer * Etiology (decubitus/pressure, diabetic, PVD) * Stage I-IV, Unstageable, Suspected Deep Tissue Injury (To the deepest stage) * If the ulcer was present at admission (POA) or occurred after admission In your professional opinion, can you please clarify the diagnosis, location, laterality and whether present on admission (POA): Stage 1 Pressure/Decubitus Ulcer (intact skin, non-blanching redness of local area) Stage 2 Pressure/Decubitus Ulcer (Partial thickness, loss of dermis, pink wound bed) Stage 3 Pressure/Decubitus Ulcer (Full thickness tissue loss) Stage 4 Pressure/Decubitus Ulcer (Full thickness tissue loss with exposed bone, tendon, or muscle. May have slough or eschar present) Unstageable Unable to determine Other condition, please specify * Please indicate cause (if known). Please document in your progress notes and discharge summary in order to capture severity of illness and risk of mortality. Include clinical findings that support your diagnosis. FYI: Press F11 to launch patient chart. Place X here if this finding has no clinical significance, is not applicable or if you are not able to provide any additional documentation. ALONSO
--- NOTE | 2016-09-26 12:17 | CDI ---
In responding to this query, please exercise your independent professional judgment. The [facility] Coding Staff and Clinical Documentation Specialists appreciate your assistance in clarifying documentation, maintaining compliance with coding guidelines, accurately documenting patients condition and capturing severity of illness. The fact that a question is asked does not imply that any particular answer is desired or expected. Communication forms are a method of clarifying documentation and are not made part of the Legal Health Record. Thank you in advance for your clarification. Last Revision, February 2015 Soto Posey [address] [facility] [place] [address] Documentation Clarification Form Date: 09/26/2016 12:14:00 PM From: Remedios Rojas [facility] & Breann Santa, [employer] & [phone] Admit Date: 09/14/2016 10:08:00 PM Patient Name: Juan Carlos Hills Visit Number: [id number] Discharge Date: 09-20-16 Dr. Martin Norton Please confirm if patient has a stage II pressure ulcer of buttocks. A pressure ulcer was documented in the nursing notes and dietary notes. See all options to answer this query below: . History/Risk Factors: alcoholism, cachetic, smoker, hyponatremic, history of falls, CKD III, cardiomyopathy, atrial fib, diabetes, chronic hypoxia, acute renal failure, HTN, COPD exacerbation, amputated toes, spondylosis, hx CHF Location: buttocks Wound description: Dietitian states: "underweight, poor wound healing secondary to multiple chronic medical conditions--Stage II pressure ulcer". Nursing also mentions on 09-19-16 physical assessment "stage II pressure ulcer, buttocks". Treatment: Naman flavored beverage BID Consults: Registered Dietitian on 09-16-16 Elements for accurate and compliant documentation of an ulcer: * The location/laterality of the ulcer * Etiology (decubitus/pressure, diabetic, PVD) * Stage I-IV, Unstageable, Suspected Deep Tissue Injury (To the deepest stage) * If the ulcer was present at admission (POA) or occurred after admission In your professional opinion, can you please clarify the diagnosis, location, laterality and whether present on admission (POA): Stage 1 Pressure/Decubitus Ulcer (intact skin, non-blanching redness of local area) Stage 2 Pressure/Decubitus Ulcer (Partial thickness, loss of dermis, pink wound bed) Stage 3 Pressure/Decubitus Ulcer (Full thickness tissue loss) Stage 4 Pressure/Decubitus Ulcer (Full thickness tissue loss with exposed bone, tendon, or muscle. May have slough or eschar present) Unstageable Unable to determine Other condition, please specify * Please indicate cause (if known). Please document in your progress notes and discharge summary in order to capture severity of illness and risk of mortality. Include clinical findings that support your diagnosis. FYI: Press F11 to launch patient chart. Place X here if this finding has no clinical significance, is not applicable or if you are not able to provide any additional documentation. ALONSO
--- NOTE | 2016-09-28 10:06 | DS ---
ADDENDUM: DATE OF ADMISSION: 09/14/2016 DATE OF DISCHARGE: 09/20/2016 ADDENDUM: FINAL DIAGNOSES: Stage II pressure ulcer on the buttocks, present on admission.
--- NOTE | 2016-09-29 11:18 | DS ---
DATE OF ADMISSION: 09/14/2016 DATE OF DISCHARGE: 09/20/2016 ADDENDUM TO FINAL DIAGNOSES: Stage 2 decubitus ulcer present on the buttocks, present on admission.
== END 2016-09-20 14:17 | disposition home health service (06) | DRG 191 ==
LOC: EC 18:53 → EEVIPCON 22:08 → 6SEL 22:08 → UNDODISIN 09-15 12:40 → 4MS4W 09-17 18:37
PROVIDERS: ADMIT Hospitalist; ATTEND Hospitalist
PROC: HZ2ZZZZ Detoxification Services for Substance Abuse Treatment (ICD-10-PCS; principal; 2016-09-14)
DX: J44.1 Chronic obstructive pulmonary disease with (acute) exacerbation (principal); F10.231 Alcohol dependence with withdrawal delirium; N17.9 Acute kidney failure, unspecified; L89.302 Pressure ulcer of unspecified buttock, stage 2; J96.11 Chronic respiratory failure with hypoxia; R64 Cachexia; I95.9 Hypotension, unspecified; I13.0 Hypertensive heart and chronic kidney disease with heart failure and stage 1 through stage 4 chronic kidney disease, or unspecified chronic kidney disease; I42.6 Alcoholic cardiomyopathy; I48.1 Persistent atrial fibrillation; E87.1 Hypo-osmolality and hyponatremia; I50.9 Heart failure, unspecified; E11.22 Type 2 diabetes mellitus with diabetic chronic kidney disease; I48.0 Paroxysmal atrial fibrillation; N18.3 Chronic kidney disease, stage 3 (moderate); I48.2 Chronic atrial fibrillation; D64.9 Anemia, unspecified; Z99.81 Dependence on supplemental oxygen; F17.200 Nicotine dependence, unspecified, uncomplicated; E78.5 Hyperlipidemia, unspecified; M47.812 Spondylosis without myelopathy or radiculopathy, cervical region; G56.00 Carpal tunnel syndrome, unspecified upper limb; R53.1 Weakness; R40.2410 Glasgow coma scale score 13-15, unspecified time; M47.816 Spondylosis without myelopathy or radiculopathy, lumbar region; Z79.899 Other long term (current) drug therapy; Z79.51 Long term (current) use of inhaled steroids; Z79.82 Long term (current) use of aspirin; Z79.01 Long term (current) use of anticoagulants; Z83.3 Family history of diabetes mellitus; Z87.442 Personal history of urinary calculi; Z88.1 Allergy status to other antibiotic agents; Z91.81 History of falling; Z87.19 Personal history of other diseases of the digestive system; Z86.010 Personal history of colon polyps; Z87.01 Personal history of pneumonia (recurrent); Z71.3 Dietary counseling and surveillance; Z71.6 Tobacco abuse counseling; Z71.41 Alcohol abuse counseling and surveillance of alcoholic; Z98.42 Cataract extraction status, left eye; Z98.41 Cataract extraction status, right eye; Z79.891 Long term (current) use of opiate analgesic; Z89.421 Acquired absence of other right toe(s); Z68.21 Body mass index [BMI] 21.0-21.9, adult
CPT/HCPCS: 36415; 71010; 78582; 80048; 80053; 82272; 82550; 82553; 83735; 83880; 84100; 84443; 84450; 84460; 84484; 85025; 85027; 85379; 85610; 85730; 93005; 94640; 94760; 96361; 96374; 99291

== ENCOUNTER 2016-09-26 15:35 | Inpatient (IN) | payer MEDICARE, OTHER ==
[2016-09-26] MEDS ORDERED: IPRATROPIUM-ALBUTEROL 3 ML NEB INHALATION STA (15:45)
--- NOTE | 2016-09-26 15:47 | ED ---
General Adult HPI - General Stated complaint: ETOH Time Seen by Provider: 09/26/16 15:35 Source: RN notes reviewed - History of Present Illness Initial comments: This is a 71-year-old male whose neighbor called EMS because the neighbor states the patient is not taking care of himself. The patient states he had diarrhea this morning but he has had it for days now and was actually admitted to the hospital a few days ago for it. Patient has no complaints she states she drank a gallon of vodka today. Neighbor states the patient is not eating and he is not taking care of himself at all and when the EMS arrived he became combative and fighting with the police and the ambulance crew they brought the patient into the emergency department. Patient denies any recent fever chills or cough. Patient denies any chest pain palpitations difficulty breathing shortness breath. Patient states he is a smoker - Related Data Home Medications Medication Instructions Recorded Confirmed HYDROcodone/APAP 10-325MG [Ruth 1 tab PO Q6H PRN 08/27/13 09/26/16 10-325] Budesonide/Formoterol Fumarate 2 puff INHALATION RT-BID 01/17/16 09/26/16 [Symbicort 160-4.5 Mcg Inhaler] Tamsulosin HCl [Flomax] 0.4 mg PO HS 01/17/16 09/26/16 Albuterol Sulfate [Proair Hfa] 1 - 2 puff INHALATION RT-Q6H PRN 09/14/16 Rivaroxaban [Xarelto] 20 mg PO DAILY 09/14/16 09/26/16 Ipratropium-Albuterol Nebulize 3 ml INHALATION RT-QID 09/26/16 09/26/16 [Duoneb 0.5 mg-3 mg/3 ml Soln] Metoprolol Tartrate [Lopressor] 25 mg PO BID 09/26/16 09/26/16 predniSONE See Taper PO DAILY 09/26/16 09/26/16 Previous Rx's Medication Instructions Recorded Amiodarone [Cordarone] 400 mg PO DIRECTED #60 tab 09/20/16 Dicyclomine [Bentyl] 10 mg PO TID #90 cap 09/20/16 Disulfiram 250 mg PO DIRECTED #30 tablet 09/20/16 Pravastatin Sodium [Pravachol] 40 mg PO HS #30 tab 09/20/16 Thiamine [Vitamin B-1] 100 mg PO DAILY tab 09/20/16 Allergies Allergy/AdvReac Type Severity Reaction Status Date / Time cephalexin monohydrate Allergy Rash/Hives Verified 09/26/16 15:47 [From Keflex] Review of Systems ROS Statement: Those systems with pertinent positive or pertinent negative responses have been documented in the HPI. ROS Other: All systems not noted in ROS Statement are negative. Past Medical History Past Medical History: Atrial Fibrillation, Chest Pain / Angina, Heart Failure, COPD, Hyperlipidemia, Hypertension, Pneumonia Additional Past Medical History / Comment(s): 12-15-14 ADMITTED TO [facility] WITH AFIB /PNE.OTHER HX: COPD, ALCOHOLIC CARDIOMYOPATHY, DT'S, CERVICAL AND LUMBAR SPONDYLOSIS, CARPAL TUNNEL disease. History of Any Multi-Drug Resistant Organisms: None Reported Past Surgical History: Back Surgery, Hernia Repair Additional Past Surgical History / Comment(s): right shoulder, bilateral cataract surgery , UMBILICAL HERNIA KINDNEY STONES REMOVED, HAMMER TOE SX X3, with subsequent amputation of the second great toe on his right foot, pain injections through neurology, colonoscopy Past Anesthesia/Blood Transfusion Reactions: No Reported Reaction Past Psychological History: No Psychological Hx Reported Additional Psychological History / Comment(s): Lives with friend, Bekah Arriaga. Says she lives in the upstairs of his home. Smoking Status: Current every day smoker Past Alcohol Use History: Daily Additional Past Alcohol Use History / Comment(s): Smokes 1 PPD, DRINKS A FIFTH OF VODKA BETWEEN 9PM-MIDNIGHT DAILY Past Drug Use History: None Reported - Past Family History Father Family Medical History: Diabetes Mellitus Mother History Unknown: Yes Additional Family Medical History / Comment(s): 2001 General Exam - General Exam Comments Initial Comments: GENERAL: Patient is well-developed and well-nourished. Patient is nontoxic and well- hydrated and is in no acute distress. Patient appears intoxicated ENT: Neck is soft and supple. No significant lymphadenopathy is noted. Oropharynx is clear. Moist mucous membranes. Neck has full range of motion without eliciting any pain. EYES: The sclera were anicteric and conjunctiva were pink and moist. Extraocular movements were intact and pupils were equal round and reactive to light. Eyelids were unremarkable. PULMONARY: Unlabored respirations. Good breath sounds bilaterally. Patient has expiratory wheezing. CARDIOVASCULAR: There is a regular rate and rhythm without any murmurs gallops or rubs. ABDOMEN: Soft and nontender with normal bowel sounds. No palpable organomegaly was noted. There is no palpable pulsatile mass. SKIN: Patient has multiple small noninfected excoriations all over his body legs and back. No areas of cellulitis are no gross abnormalities were noted. NEUROLOGIC: Patient is alert and oriented x3. Cranial nerves II through XII are grossly intact. Motor and sensory are also intact. Normal speech, volume and content. Symmetrical smile. MUSCULOSKELETAL: Normal extremities with adequate strength and full range of motion. LYMPHATICS: No significant lymphadenopathy is noted PSYCHIATRIC: Patient is intoxicated. Course Vital Signs 09/26/16 09/26/16 09/26/16 15:45 15:57 16:06 Temperature 97.0 F L Pulse Rate 148 H 139 H 130 H Respiratory 18 Rate Blood Pressure 107/67 O2 Sat by Pulse 100 Oximetry 09/26/16 16:50 Temperature Pulse Rate 121 H Respiratory 18 Rate Blood Pressure 121/78 O2 Sat by Pulse 98 Oximetry Medical Decision Making - Medical Decision Making EKG shows atrial fibrillation with rapid ventricular response at 134 bpm QRS is under 28 Q-T is 376 QTC is 561. Patient's EKG shows a right bundle branch block. EKG was compared to an old EKG and the irregular heartbeat was seen before. Chest x-ray shows no acute abnormality. Patient's heart rate did not come down with fluids I started the patient on a Cardizem drip. I spoke with Dr. Norton. Dr. Norton agreed to admit the patient admitted the patient and consult cardiology. I wrote admitting orders. - Lab Data Result diagrams: 09/26/16 15:35 09/26/16 15:35 Lab Results 09/26/16 09/26/16 09/26/16 Range/Units 15:35 15:35 15:35 WBC 10.1 (3.8-10.6) k/uL RBC 3.37 L (4.30-5.90) m/uL Hgb 10.9 L (13.0-17.5) gm/dL Hct 33.9 L (39.0-53.0) % MCV 100.5 H (80.0-100.0) fL MCH 32.5 (25.0-35.0) pg MCHC 32.3 (31.0-37.0) g/dL RDW 16.9 H (11.5-15.5) % Plt Count 219 (150-450) k/uL Neutrophils % 83 % Lymphocytes % 10 % Monocytes % 5 % Eosinophils % 0 % Basophils % 0 % Neutrophils # 8.4 H (1.3-7.7) k/uL Lymphocytes # 1.0 (1.0-4.8) k/uL Monocytes # 0.5 (0-1.0) k/uL Eosinophils # 0.0 (0-0.7) k/uL Basophils # 0.0 (0-0.2) k/uL Hypochromasia Slight Anisocytosis Slight Macrocytosis Slight PT (9.0-12.0) sec INR (<1.1) APTT (22.0-30.0) sec Sodium 144 (137-145) mmol/L Potassium 3.4 L (3.5-5.1) mmol/L Chloride 102 (98-107) mmol/L Carbon Dioxide 25 (22-30) mmol/L Anion Gap 17 mmol/L BUN 9 (9-20) mg/dL Creatinine 1.10 (0.66-1.25) mg/dL Est GFR (MDRD) Af Amer >60 (>60 ml/min/1.73 sqM) Est GFR (MDRD) Non-Af >60 (>60 ml/min/1.73 sqM) Glucose 99 (74-99) mg/dL Calcium 7.4 L (8.4-10.2) mg/dL Magnesium 1.6 (1.6-2.3) mg/dL Total Bilirubin 0.9 (0.2-1.3) mg/dL AST 108 H (17-59) U/L ALT 77 H (21-72) U/L Alkaline Phosphatase 108 (38-126) U/L Total Creatine Kinase 65 (55-170) U/L CK-MB (CK-2) 1.3 (0.0-2.4) ng/mL CK-MB (CK-2) Rel Index 2.0 Troponin I <0.012 (0.000-0.034) ng/mL Total Protein 5.3 L (6.3-8.2) g/dL Albumin 3.0 L (3.5-5.0) g/dL Serum Alcohol 278 mg/dL 09/26/16 Range/Units 15:35 WBC (3.8-10.6) k/uL RBC (4.30-5.90) m/uL Hgb (13.0-17.5) gm/dL Hct (39.0-53.0) % MCV (80.0-100.0) fL MCH (25.0-35.0) pg MCHC (31.0-37.0) g/dL RDW (11.5-15.5) % Plt Count (150-450) k/uL Neutrophils % % Lymphocytes % % Monocytes % % Eosinophils % % Basophils % % Neutrophils # (1.3-7.7) k/uL Lymphocytes # (1.0-4.8) k/uL Monocytes # (0-1.0) k/uL Eosinophils # (0-0.7) k/uL Basophils # (0-0.2) k/uL Hypochromasia Anisocytosis Macrocytosis PT 11.1 (9.0-12.0) sec INR 1.1 (<1.1) APTT 22.7 (22.0-30.0) sec Sodium (137-145) mmol/L Potassium (3.5-5.1) mmol/L Chloride (98-107) mmol/L Carbon Dioxide (22-30) mmol/L Anion Gap mmol/L BUN (9-20) mg/dL Creatinine (0.66-1.25) mg/dL Est GFR (MDRD) Af Amer (>60 ml/min/1.73 sqM) Est GFR (MDRD) Non-Af (>60 ml/min/1.73 sqM) Glucose (74-99) mg/dL Calcium (8.4-10.2) mg/dL Magnesium (1.6-2.3) mg/dL Total Bilirubin (0.2-1.3) mg/dL AST (17-59) U/L ALT (21-72) U/L Alkaline Phosphatase (38-126) U/L Total Creatine Kinase (55-170) U/L CK-MB (CK-2) (0.0-2.4) ng/mL CK-MB (CK-2) Rel Index Troponin I (0.000-0.034) ng/mL Total Protein (6.3-8.2) g/dL Albumin (3.5-5.0) g/dL Serum Alcohol mg/dL Critical Care Time Critical Care Time: Yes Total Critical Care Time: 35 Disposition Clinical Impression: Atrial fibrillation with rapid ventricular response, Alcohol intoxication Disposition: ADMITTED IP TO THIS HOSP Referrals: Darrick Georges MD [Primary Care Provider] - 1-2 days Time of Disposition: 17:49
[2016-09-26] MEDS ORDERED: SODIUM CHLORIDE 0.9% 500 ML IV ONE (16:00)
[2016-09-26 16:24] LABS: Anisocytosis Slight; Basophils % (A) 0 %; CH 32.3; CHCM 32.3; Eosinophils % (A) 0 %; HCT 33.9 % (39.0-53.0); HGB 10.9 gm/dL (13.0-17.5); Hypochromasia Slight; Luc # (Auto) 0.18; Luc % (Auto) 2; Lymphocytes % (A) 10 %; MCH 32.5 pg (25.0-35.0); MCHC 32.3 g/dL (31.0-37.0); MCV 100.5 fL (80.0-100.0); Macrocytosis Slight; Mean Platelet Volume 7.6; Monocytes # (A) 0.5 k/uL (0-1.0); Monocytes % (A) 5 %; Neutrophils # (A) 8.4 k/uL (1.3-7.7); Neutrophils % (A) 83 %; RBC 3.37 m/uL (4.30-5.90); RDW 16.9 % (11.5-15.5); WBC 10.1 k/uL (3.8-10.6); WBC (Perox) 10.13
--- NOTE | 2016-09-26 16:28 | XR ---
EXAMINATION TYPE: XR chest 2V DATE OF EXAM: 09/26/2016 HISTORY: Chest Pain. REFERENCE: Previous study dated 09/14/2016. FINDINGS: There is a right shoulder arthroplasty in place. The lungs are overinflated but clear. Pleural spaces are clear. Heart size is within normal limits. IMPRESSION: COPD.
[2016-09-26] MEDS ORDERED: 0.9% NACL WITH KCL 20 MEQ/L 1,000 ML with MVI, ADULT NO.4 WITH VIT K 10 ML, THIAMINE 10... IV ONE ×4 (16:30)
[2016-09-26 16:31] LABS: INR 1.1 (<1.1); Partial Thromboplastin Time 22.7 sec (22.0-30.0); Prothrombin Time 11.1 sec (9.0-12.0)
[2016-09-26 16:38] LABS: ALT 77 U/L (21-72); AST 108 U/L (17-59); Alkaline Phosphatase 108 U/L (38-126); Anion Gap 17 mmol/L; Blood Urea Nitrogen 9 mg/dL (9-20); Calcium 7.4 mg/dL (8.4-10.2); Carbon Dioxide 25 mmol/L (22-30); Chloride 102 mmol/L (98-107); Glucose 99 mg/dL (74-99); Magnesium 1.6 mg/dL (1.6-2.3); Non-African American GFR(MDRD) >60 (>60 ml/min/1.73 sqM); Potassium 3.4 mmol/L (3.5-5.1); Sodium 144 mmol/L (137-145); Total Bilirubin 0.9 mg/dL (0.2-1.3); Total Protein 5.3 g/dL (6.3-8.2)
[2016-09-26 16:44] LABS: Alcohol 278 mg/dL
[2016-09-26 16:49] LABS: Creatine Kinase 65 U/L (55-170)
[2016-09-26 17:01] LABS: Creatine Kinase MB 1.3 ng/mL (0.0-2.4); Troponin I <0.012 ng/mL (0.000-0.034)
[2016-09-26] MEDS ORDERED: LORazepam 2 MG/ML SYRINGE IV STA (17:21)
[2016-09-26] MEDS ORDERED: DILTIAZEM 125 MG in SODIUM CHLORIDE 0.9% 100 ML IV ONE (17:45)
[2016-09-26] MEDS ORDERED: HEPARIN SODIUM,PORCINE 5,000 UNIT/ML 1 ML VIAL IV ONE (17:50)
[2016-09-26] MEDS ORDERED: NITROGLYCERIN SL TABS 0.4 MG TAB SUBLINGUAL PRN (17:51)
[2016-09-26] MEDS ORDERED: LORazepam 2 MG/ML SYRINGE IV PRN ×3 (17:54)
[2016-09-26] MEDS ORDERED: THIAMINE 100 MG/ML 2 ML VIAL IM STA (17:54)
[2016-09-26] MEDS ORDERED: HEPARIN SODIUM,PORCINE/D5W PMX 25,000 UNIT in DEXTROSE/WATER 1 500ML.BAG IV SCH (18:00)
[2016-09-26] MEDS ORDERED: SODIUM CHLORIDE 0.9% 1,000 ML with POTASSIUM CHLORIDE 20 MEQ, MVI, ADULT NO.4 WITH VIT ... IV SCH ×10 (18:30→20:00)
[2016-09-26] MEDS ORDERED: IPRATROPIUM-ALBUTEROL 3 ML NEB INHALATION SCH (20:00)
[2016-09-26 22:25] LABS: Creatine Kinase MB 2.4 ng/mL (0.0-2.4); Troponin I 0.021 ng/mL (0.000-0.034)
[2016-09-27] MEDS: IPRATROPIUM-ALBUTEROL 3 ML NEB INHALATION PRN (02:42)
[2016-09-27 02:53] LABS: Creatine Kinase MB 1.8 ng/mL (0.0-2.4); Troponin I 0.019 ng/mL (0.000-0.034)
[2016-09-27 03:47] LABS: Cholesterol 112 mg/dL (<200); HDL Cholesterol 59 mg/dL (40-60); Triglycerides 90 mg/dL (<150)
[2016-09-27] MEDS ORDERED: HYDROcodone/APAP 10-325MG 1 EACH TAB PO PRN (07:03)
[2016-09-27] MEDS ORDERED: ALBUTEROL INHALER 60 PUFF/8 GM INHALER INHALATION PRN (07:03)
[2016-09-27] MEDS ORDERED: IPRATROPIUM-ALBUTEROL 3 ML NEB INHALATION SCH (08:00)
[2016-09-27] MEDS: IPRATROPIUM-ALBUTEROL 3 ML NEB INHALATION SCH ×4 (08:35→19:10)
[2016-09-27] MEDS: SYMBICORT 160-4.5 MCG INHALER INHALATION SCH ×2 (08:35→19:10)
[2016-09-27] MEDS: DICYCLOMINE 10 MG CAP PO SCH ×3 (08:40→23:34)
[2016-09-27] MEDS ORDERED: THIAMINE 100 MG TAB PO SCH (09:00)
[2016-09-27] MEDS ORDERED: ASPIRIN 325 MG TAB PO SCH (09:00)
[2016-09-27] MEDS ORDERED: METOPROLOL TARTRATE 25 MG TAB PO SCH (09:00)
[2016-09-27] MEDS ORDERED: METOPROLOL TARTRATE 25 MG TAB PO STA (09:03)
--- NOTE | 2016-09-27 09:51 | CONS ---
DATE OF CONSULTATION: CHIEF COMPLAINT: Atrial fibrillation with rapid ventricular rate. This is a 71-year-old gentleman with history of EtOH abuse who comes to the hospital having been found not taking care of himself by a neighbor. He has had diarrhea and has history of EtOH abuse and was intoxicated. On his initial presentation he was found to be in atrial fibrillation with rapid ventricular rate for which he is admitted to hospital and cardiology had been consulted. He in fact had an admission with very similar prominence within the last several weeks. He is a poor historian and obviously not able to take care of himself at home. He is not a candidate for nursing home anticoagulation with Coumadin or ( ) anticoagulants. He has an echocardiogram from 2015 that showed LV systolic dysfunction. I am going to repeat an echo on him today to see where we are. At the time of my evaluation, he appeared somewhat confused, tremulous and unstable on his feet. I am going to stop the IV heparin, put him on subcu heparin, control heart rate better by increasing the dose of Lopressor to 50 b.i.d. If the heart rate is well controlled, we can stop the IV Cardizem and if necessary put him on oral Cardizem. He is not a candidate for long-term anticoagulation because of the risk of bleeding. Past medical history is significant for EtOH abuse, paroxysmal atrial fibrillation, hypertension. Current medications include Thiamine, Symbicort, Flomax, Xarelto, Pravachol, Lopressor, DuoNeb. ALLERGIES: Allergic to KEFLEX. Family history is negative for premature coronary artery disease. Social history is negative for current smoking. There is history of EtOH abuse. There is no history of drug abuse. REVIEW OF SYSTEMS: HEENT: Unremarkable. CARDIAC: As described above. RESPIRATORY: Negative. GI: Negative. GENITOURINARY: Negative. ALLERGY/IMMUNOLOGY: Negative. SKIN: Negative. MUSCULOSKELETAL: Significant for arthritis. PSYCHOSOCIAL: Negative. ENDOCRINE: Negative. HEMATOLOGIC: Negative. DERMATOLOGY: Negative. CONSTITUTIONAL: Negative. ONCOLOGICAL: Negative. The rest of the system review is not relevant. On exam he is comfortable at rest. Afebrile. Heart rate is 100 beats per minute. Blood pressure is 125/77, respiratory rate 18, O2 sat is 95% on 2 L. There is no jugular venous distention. Carotid upstroke is normal. There is no bruit. Chest exam reveals good air entry bilaterally. Heart exam reveals first and second heart sounds, irregular rhythm. No murmur. Abdomen is soft, nontender. Exam of the extremities did not reveal edema. Peripheral pulses are felt. Labs show a hemoglobin of 10.9. Creatinine is 1.1. Potassium is 3.4. Three sets of tropes are negative. EtOH level was 278. EKG shows atrial fibrillation with rapid ventricular rate as does the rhythm strips. ASSESSMENT: 1. Chronic atrial fibrillation with rapid ventricular rate secondary to EtOH abuse. 2. History of cardiomyopathy. PLAN: Not a candidate for anticoagulation, will do rate control with beta blockers. Once well controlled from cardiac standpoint, we should be able to discharge him home.
[2016-09-27] MEDS: THIAMINE 100 MG TAB PO SCH ×2 (11:17→16:25)
--- NOTE | 2016-09-27 12:04 | ECHOF ---
Referral Reason:afib MEASUREMENTS -------- HEIGHT: 182.9 cm WEIGHT: 75.3 kg BP: 125/77 RVIDd: 2.7 cm (< 3.3) IVSd: 1.3 cm (0.6 - 1.1) LVIDd: 5.8 cm (3.9 - 5.3) LVPWd: 1.2 cm (0.6 - 1.1) IVSs: 1.6 cm LVIDs: 4.6 cm LVPWs: 1.6 cm LAESV Index (A-L): 28.38 ml/m Ao Diam: 3.6 cm (2.0 - 3.7) AV Cusp: 1.1 cm (1.5 - 2.6) LA Diam: 4.1 cm (2.7 - 3.8) MV EXCURSION: 17.701 mm (> 18.000) MV EF SLOPE: 84 mm/s (70 - 150) EPSS: 1.0 cm AV maxP.48 mmHg AV meanP.91 mmHg RAP: 5.00 mmHg RVSP: 14.10 mmHg FINDINGS -------- Resting tachycardia (HR>100bpm). This was a technically difficult study with suboptimal views. Pt. is combative Pt. not compliant. Patient refused Definity. There is moderate concentric left ventricular hypertrophy. Overall left ventricular systolic function is mildly impaired with, an EF between 45 - 50 %. The right ventricle is normal in size and function. LA is midly dilated 29-33ml/m2. The right atrium is normal in size. There is mild to moderate aortic valve sclerosis. There is no evidence of aortic regurgitation. There is no evidence of aortic stenosis. The mitral valve leaflets are mildly thickened. There is trace to mild mitral regurgitation. Trace tricuspid regurgitation present. There is no evidence of pulmonary hypertension. The right ventricular systolic pressure, as measured by Doppler, is 14.10mmHg. The pulmonic valve was not well visualized. The aortic root is mildy dilated. The inferior vena cava is mildly dilated. There is no pericardial effusion. CONCLUSIONS -------- 1. Resting tachycardia (HR>100bpm). 2. The mitral valve leaflets are mildly thickened. 3. There is trace to mild mitral regurgitation. 4. Trace tricuspid regurgitation present. 5. There is no evidence of pulmonary hypertension. 6. The right ventricular systolic pressure, as measured by Doppler, is 14.10mmHg. 7. The pulmonic valve was not well visualized. 8. The aortic root is mildy dilated. 9. The inferior vena cava is mildly dilated. 10. There is no pericardial effusion. 11. This was a technically difficult study with suboptimal views. 12. Pt. is combative 13. Pt. not compliant. 14. Patient refused Definity. 15. There is moderate concentric left ventricular hypertrophy. 16. Overall left ventricular systolic function is mildly impaired with, an EF between 45 - 50 %. 17. LA is midly dilated 29-33ml/m2. 18. There is mild to moderate aortic valve sclerosis. FOLDER HAND: Blake Mullins RDCS
[2016-09-27] MEDS: DIAZEPAM 5 MG TAB PO SCH ×2 (16:24→23:36)
[2016-09-27] MEDS: HEPARIN SODIUM,PORCINE 5,000 UNIT/ML 1 ML VIAL SQ SCH (16:25)
--- NOTE | 2016-09-27 20:34 | HP ---
DATE OF ADMISSION: 09/26/2016 PRESENTING COMPLAINT: Tired, short of breath, lethargic. HISTORY OF PRESENTING COMPLAINT: This is a 71-year-old patient who was ( ) in the hospital. Who has been smoking and drinking alcohol for a long time. The patient has a diagnosis of COPD, atrial fibrillation, hyperlipidemia, hypertension, also had hyponatremia. Patient continues to go back and started drinking at least fifth a day. Continued to smoke, weak, tired, presented with heart racing, short of breath, cough, congested, tired, rundown. Patient has a lady staying upstairs who actually takes care of him. REVIEW OF SYSTEMS: CONSTITUTIONAL: Tired. HEENT: None. RESPIRATORY: Short of breath, cough. CARDIOVASCULAR: Rapid heart rate. GASTROINTESTINAL: None. GENITOURINARY: None. MUSCULOSKELETAL: None. Dermatologic: None. HEMATOLOGIC: None. LYMPHATIC: None. PSYCHIATRY: Anxiety. NEUROLOGICAL: None. Past medical history of atrial fibrillation, cardiomyopathy, COPD, hypertension, hyperlipidemia, alcoholic cardiomyopathy, cervical lumbar spondylosis, carpal tunnel disease. PAST SURGICAL HISTORY: Back surgery, hernia repair, right shoulder surgery, bilateral cataract surgery, umbilical hernia repair, kidney stones removed, hammertoe x3. Amputation of the second toe on the right. SOCIAL HISTORY: The patient lives with his friend Pamela who lives upstairs, takes care of his house. Patient smokes about a pack a day and drinks anywhere from one or two fifths of vodka daily. FAMILY HISTORY: Diabetes. HOME MEDICATIONS: 1. Patient was discharged on [place] 10 1 tablets q.6 p.r.n. 2. Symbicort 160/4.5 two puffs b.i.d. 3. Flomax 0.4 mg q.h.s. 4. Pro-Air one to 2 puffs q.6 p.r.n. 5. Aspirin 81 mg a day. 6. Xarelto 20 mg a day. 7. Cordarone 400 mg twice day for 7 days and then 400 mg a day. 8. Bentyl 10 mg p.o. t.i.d. 9. ( ) 5 mg for 7 days, then 250 mg a day. 10. DuoNeb t.i.d. 11. Lopressor 50 mg p.o. b.i.d. 12. Pravachol 40 mg q.h.s. 13. Thiamine 100 mg p.o. daily. 14. Prednisone taper. 15. Home oxygen. ALLERGIES: ( ) Keflex and ( ). FAMILY HISTORY: Diabetes. ALLERGIES: Keflex. PHYSICAL EXAMINATION: Vital signs on presentation: Temperature 97.8, pulse 140, respirations 18, blood pressure 106/77, pulse 100% on 2 liters. GENERAL APPEARANCE: Unkempt, lying in bed, tired appearing and lethargic. EYES: Pupils equal. Conjunctivae normal. HEENT: External appearance of nose and ears normal. Oral cavity poor hygiene. NECK: JVD unable to assess. Mass not palpable. RESPIRATORY: Effort increased. LUNGS: Diminished breath sounds. CARDIOVASCULAR: Heart rate is irregular. No edema. ABDOMEN: Soft, nontender. Liver and spleen not palpable. LYMPHATIC: No lymph node palpable in neck or axillae. PSYCHIATRY: Somewhat tired today but answers simple questions. INVESTIGATIONS: White count 10.1, hemoglobin 10.9. Potassium 3.4. BUN and creatinine are normal. Accu-Cheks noted. Serum alcohol was 278. ( ) hyperinflation. EKG atrial fibrillation with rapid ventricular response. ASSESSMENT: 1. Persistent atrial fibrillation with rapid ventricular response in a patient, considering to drink alcohol. 2. Acute chronic obstructive pulmonary exacerbation in a longstanding smoker. 3. ( ) atrial fibrillation. 4. Hyperlipidemia. 5. Essential hypertension. 6. Chronic nicotine dependence. Patient is a smoker. 7. Chronic alcohol dependence 8. 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 9. Hypertensive heart disease with moderate concentric left ventricular hypertrophy. PLAN: Patient is on Lopressor. Home medications are resumed. Cardiology was consulted. Will put the patient on Valium. For DVT prophylaxis subcu Heparin. Also given a nicotine patch. Overall prognosis is guarded. 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
[2016-09-27] MEDS: TAMSULOSIN 0.4 MG CAP.ER.24H PO SCH (23:34)
[2016-09-27] MEDS: PRAVASTATIN SODIUM 40 MG TAB PO SCH (23:34)
[2016-09-27] MEDS: METOPROLOL TARTRATE 50 MG TAB PO SCH (23:34)
[2016-09-28] MEDS: IPRATROPIUM-ALBUTEROL 3 ML NEB INHALATION PRN ×2 (01:54→23:49)
[2016-09-28 07:38] LABS: Anion Gap 5 mmol/L; Blood Urea Nitrogen 10 mg/dL (9-20); Calcium 6.8 mg/dL (8.4-10.2); Carbon Dioxide 27 mmol/L (22-30); Chloride 107 mmol/L (98-107); Glucose 86 mg/dL (74-99); Non-African American GFR(MDRD) >60 (>60 ml/min/1.73 sqM); Potassium 3.7 mmol/L (3.5-5.1); Sodium 139 mmol/L (137-145)
[2016-09-28 07:46] LABS: Anisocytosis Slight; Basophils % (A) 0 %; CH 31.8; CHCM 30.8; Eosinophils # (A) 0.1 k/uL (0-0.7); Eosinophils % (A) 1 %; HCT 28.4 % (39.0-53.0); HDW 2.43; Hypochromasia Moderate; Luc # (Auto) 0.07; Luc % (Auto) 1; Lymphocytes # (A) 0.8 k/uL (1.0-4.8); Lymphocytes % (A) 10 %; MCH 32.6 pg (25.0-35.0); MCHC 31.4 g/dL (31.0-37.0); MCV 103.7 fL (80.0-100.0); Macrocytosis Moderate; Mean Platelet Volume 8.3; Monocytes # (A) 0.3 k/uL (0-1.0); Monocytes % (A) 4 %; Neutrophils # (A) 6.7 k/uL (1.3-7.7); Neutrophils % (A) 84 %; RBC 2.73 m/uL (4.30-5.90); RDW 16.6 % (11.5-15.5); WBC (Perox) 7.52
[2016-09-28 07:49] LABS: HGB 8.9 gm/dL (13.0-17.5)
[2016-09-28] MEDS: IPRATROPIUM-ALBUTEROL 3 ML NEB INHALATION SCH ×4 (09:05→18:35)
[2016-09-28] MEDS: SYMBICORT 160-4.5 MCG INHALER INHALATION SCH ×2 (09:05→18:36)
[2016-09-28] MEDS: HEPARIN SODIUM,PORCINE 5,000 UNIT/ML 1 ML VIAL SQ SCH ×3 (09:36→17:56)
[2016-09-28] MEDS: DICYCLOMINE 10 MG CAP PO SCH ×3 (09:36→22:39)
[2016-09-28] MEDS: METOPROLOL TARTRATE 50 MG TAB PO SCH ×2 (09:36→22:38)
[2016-09-28] MEDS: DIAZEPAM 5 MG TAB PO SCH (09:37)
--- NOTE | 2016-09-28 12:34 | P.PN ---
Subjective Principal diagnosis: Atrial fibrillation with RVR This 71-year-old gentleman with a history of EtOH abuse who came to the hospital having been found not taking care of himself at home by a neighbor. Patient was having diarrhea and was quite intoxicated upon presentation. He was found to be in atrial fibrillation with rapid ventricular response. Patient is a poor historian with noncompliance and is not a candidate for long- term anticoagulation with Coumadin or new or anticoagulants. Patient has been on metoprolol 50 mg by mouth twice a day. Supporting heart rates are 130s to 150s, patient is asymptomatic with this. Echocardiogram was reviewed that was done yesterday and showed an ejection fraction of 40-45%. On examination, patient is resting comfortably in bed complains of some shortness of breath at times. Objective - Vital Signs Vital signs: Vital Signs Temp 98.2 F 09/28/16 09:38 Pulse 150 H 09/28/16 09:38 Resp 18 09/28/16 09:38 BP 114/70 09/28/16 09:38 Pulse Ox 98 09/28/16 09:38 Intake & Output 09/27/16 09/28/16 09/28/16 18:59 06:59 18:59 Intake Total 307 167 2527 Output Total 200 Balance 480 -20 1570 Weight 75.7 kg Intake: Intake, IV Titration 1450 Amount 0.9% NaCl with KCl 20 Meq 1450 /l 1,000 ml @ 125 mls/hr IV .BY DURATION LUKASZ Rx#: [id number] Oral 480 180 120 Output: Urine 200 Other: Voiding Method Toilet Toilet Toilet Urinal Urinal Urinal # Voids 1 # Bowel Movements 3 3 - Exam PHYSICAL EXAMINATION: HEENT: Head is atraumatic, normocephalic. Pupils equal, round. Neck is supple. There is no elevated jugular venous pressure. HEART EXAMINATION: Heart sounds irregularly irregular, S1 and S2 normal. No murmur or gallop heard. CHEST EXAMINATION: Lungs rocha diminished air entry bilaterally. No chest wall tenderness is noted on palpation or with deep breathing. ABDOMEN: Soft, nontender. Bowel sounds are heard. No organomegaly noted. EXTREMITIES: 2+ peripheral pulses with no evidence of peripheral edema and no calf tenderness noted. NEUROLOGIC patient is awake, alert and oriented x3. . - Labs CBC & Chem 7: 09/28/16 07:06 09/28/16 07:06 Labs: Abnormal Lab Results - Last 24 Hours (Table) 09/28/16 09/28/16 Range/Units 07:06 07:06 RBC 2.73 L (4.30-5.90) m/uL Hgb 8.9 L D (13.0-17.5) gm/dL Hct 28.4 L (39.0-53.0) % MCV 103.7 H (80.0-100.0) fL RDW 16.6 H (11.5-15.5) % Plt Count 143 L (150-450) k/uL Lymphocytes # 0.8 L (1.0-4.8) k/uL Calcium 6.8 L (8.4-10.2) mg/dL Assessment and Plan Plan: Assessment and plan #1 chronic atrial fibrillation with rapid ventricular response #2 noncompliance #3 EtOH abuse #4 cardiomyopathy, ejection fraction 40-45% #5 hypertension From cardiology's perspective, we will add amiodarone 200 mg 3 times a day and Cardizem 60 mg by mouth 3 times a day. Continue metoprolol 50 mg by mouth twice a day. Continue follow the patient provide further recommendations accordingly. The above dictated assessment and findings were discussed with signing physician. The impression and plan of care have been directed as dictated. Desiree Ramos, Nurse Practitioner, acting as scribe for signing physician.
--- NOTE | 2016-09-28 17:50 | PN ---
DATE OF SERVICE: 09/28/2016 PRESENTING COMPLAINT: Tired, short of breath, lethargic. INTERVAL HISTORY: This is a patient who presented with atrial fibrillation with rapid ventricular response. Today, patient is lying in bed. No acute symptoms. Patient is mildly short of breath, states he feels "pretty good". Review of systems done for constitutional, cardiovascular, GI, pulmonary, with relevant findings as above. CURRENT MEDICATIONS: [place] 10/325, DuoNeb, amiodarone 200 mg p.o. b.i.d., Valium 2 mg p.o. b.i.d. p.r.n., diltiazem 60 mg p.o. t.i.d., Lopressor 50 mg p.o. b.i.d. PHYSICAL EXAM: VITAL SIGNS: Temperature 98.2, pulse 150 irregular, respiratory rate 18, blood pressure 114/70, oxygen saturation 98% on 2 L nasal cannula. GENERAL APPEARANCE: Patient lying in bed; looks relaxed. No acute distress noted. EYES: Pupils equal. Conjunctivae are normal. NECK: JVD raised. Mass not palpable. RESPIRATORY: Effort labored. LUNGS: Diminished bilaterally, crackles heard throughout bilateral lung rocha. CARDIOVASCULAR: First and second sounds noted irregular, trace edema noted. ABDOMEN: Soft, nontender. Liver and spleen not palpable. PSYCHIATRY: Alert and oriented x3. Mood and affect normal. INVESTIGATIONS: Hemoglobin 8.9, platelet count 143. Echocardiogram reveals resting tachycardia, heart rate greater than 100 beats per minute, EF between 45% and 50%. ASSESSMENT: 1. Persistent atrial fibrillation with rapid ventricular response in a patient who continues to drink alcohol, slow to respond. 2. Acute chronic obstructive pulmonary exacerbation in a long-standing smoker. 3. Persistent atrial fibrillation, slow to respond. 4. Hyperlipidemia. 5. Essential hypertension. 6. Chronic nicotine dependence. Patient is a smoker. 7. Chronic alcohol dependence. 8. Alcoholic cardiomyopathy, ejection fraction is 45% to 50%. 9. Hypertensive heart disease with moderate concentric left ventricular hypertrophy. PLAN: Patient will continue on Lopressor. Cardiology recommends addition of amiodarone p.o. along with diltiazem. Patient is not currently experiencing any withdrawal symptoms. Therefore, Valium adjusted downward. Prognosis remains guarded. Will continue to monitor. Patient was seen and examined by nurse practitioner, Jodi Perez, and all elements of the case discussed with attending, Dr. Norton.
--- NOTE | 2016-09-28 17:52 | PN ---
DATE OF SERVICE: 09/28/2016 ATTENDING NOTE: This patient was seen and examined by me earlier today. I reviewed the note of my nurse practitioner, Ms. Perez. Discussed, additional noted as below. Patient admitted with COPD exacerbation, atrial fibrillation with rapid ventricular rate, has been drinking at home. Patient is far more sober today. Some congestion, short of breath, atrial fibrillation, heart rate is running anywhere from the 130s to 140s. Did tolerate some diet. On exam, lungs decreased breath sounds, crackles. Heart sounds irregular. Answering questions more appropriately. ASSESSMENT: 1. Atrial fibrillation with rapid ventricular rate. 2. Chronic obstructive pulmonary disease exacerbation. PLAN: Follow with Cardiology for heart rate control. Will cut back on the Valium to 2 mg 3 times a day. Again patient counseled against smoking and alcohol, slow to respond.
[2016-09-28] MEDS: DILTIAZEM ORAL 60 MG TAB PO SCH ×2 (17:54→22:39)
[2016-09-28] MEDS: AMIODARONE 200 MG TAB PO SCH (17:54)
[2016-09-28] MEDS: PRAVASTATIN SODIUM 40 MG TAB PO SCH (22:38)
[2016-09-28] MEDS: TAMSULOSIN 0.4 MG CAP.ER.24H PO SCH (22:38)
[2016-09-29] MEDS: IPRATROPIUM-ALBUTEROL 3 ML NEB INHALATION PRN ×2 (06:23→23:41)
[2016-09-29] MEDS: IPRATROPIUM-ALBUTEROL 3 ML NEB INHALATION SCH ×5 (08:02→19:45)
[2016-09-29] MEDS: SYMBICORT 160-4.5 MCG INHALER INHALATION SCH ×2 (08:03→19:45)
[2016-09-29] MEDS: DILTIAZEM ORAL 60 MG TAB PO SCH ×4 (09:05→21:55)
[2016-09-29] MEDS: AMIODARONE 200 MG TAB PO SCH ×4 (09:06→21:55)
[2016-09-29] MEDS: HEPARIN SODIUM,PORCINE 5,000 UNIT/ML 1 ML VIAL SQ SCH ×2 (09:07→16:10)
[2016-09-29] MEDS: METOPROLOL TARTRATE 50 MG TAB PO SCH ×2 (09:12→21:55)
[2016-09-29] MEDS: DICYCLOMINE 10 MG CAP PO SCH ×3 (09:12→21:55)
--- NOTE | 2016-09-29 11:20 | PN ---
DATE OF SERVICE: 09/29/2016 PRESENTING COMPLAINT: Tired short of breath, lethargic. INTERVAL HISTORY: This is a patient who presented with atrial fibrillation with rapid ventricular response. Today the patient is lying in bed sleeping. No acute symptoms. Patient is mildly short of breath. Review of systems done for constitutional, cardiovascular, GI, pulmonary, with relevant findings as above. CURRENT MEDICATIONS: [place] 10/325, DuoNeb, amiodarone 200 mg p.o. b.i.d., Valium 2 mg p.o. b.i.d. p.r.n. diltiazem 60 mg p.o. t.i.d. and Lopressor 50 mg p.o. b.i.d. PHYSICAL EXAMINATION: VITAL SIGNS: Temperature 99.2, pulse 106, respiratory rate 18, blood pressure 126/70, oxygen saturation 97% on 4 liters nasal cannula. GENERAL APPEARANCE: Patient is sleeping comfortably. No acute distress noted or voiced. Arouses easily. EYES: Pupils equal. Conjunctivae normal. NECK: JVD raised, mass not palpable. RESPIRATORY: Effort is mildly labored. LUNGS: Diminished bilaterally. Crackles heard throughout bilateral lung rocha. CARDIOVASCULAR: First and second sounds noted, irregular, trace edema noted. ABDOMEN: Soft, nontender. Liver and spleen not palpable. PSYCHIATRY: Alert and oriented x3. Mood and affect are normal. INVESTIGATIONS: Hemoglobin 8.9, platelet count 143. Accu-Cheks noted. ASSESSMENT: 1. Atrial fibrillation with rapid ventricular rate, improved. 2. Chronic obstructive pulmonary disease exacerbation, improving. 3. Persistent atrial fibrillation, slow to respond. 4. Hyperlipidemia. 5. Essential hypertension. 6. Chronic nicotine dependence, patient is a smoker. 7. Chronic alcohol dependence. 8. Alcoholic cardiomyopathy, ejection fraction is 45% to 50%. 9. Hypertensive heart disease with moderate concentric left ventricular hypertrophy. PLAN: Patient is to continue with a combination of amiodarone with diltiazem. Patient does not have any acute signs or symptoms of withdrawal and therefore Valium will continue to be reduced down. Prognosis remains guarded. We will continue to monitor. Patient was seen and examined by nurse practitioner, Jodi Perez, and all elements of case discussed with attending, Dr. Norton.
--- NOTE | 2016-09-29 12:46 | PN ---
71-year-old gentleman with history of ETOH abuse, who is admitted to hospital with atrial fibrillation with rapid ventricular rate and ETOH intoxication. We are treating his A. fib aggressively with Cordarone 200 t.i.d., Lopressor 50 b.i.d. and Cardizem 60 t.i.d. This morning his heart rate is better controlled. With activity it goes into the 100s, but overall it is much better. Chest exam reveals diminished air entry bilaterally. Heart exam reveals first and second heart sounds, irregular rhythm. ABDOMEN: Soft. Exam of the extremities did not reveal edema. Peripheral pulses are felt. Labs show a hemoglobin of 8.9. Potassium is 3.7. Creatinine is 0.9. ASSESSMENT: 1. Chronic atrial fibrillation with rapid ventricular rate. 2. ETOH abuse. PLAN: Patient's heart rate is better controlled. He is not a candidate for long-term anticoagulation because of the bleeding risk, with his ETOH abuse and risk for falls. Heart rate is currently controlled on his current medications.
[2016-09-29] MEDS: THIAMINE 100 MG TAB PO SCH (16:09)
[2016-09-29] MEDS: DIAZEPAM 2 MG TAB PO PRN (17:50)
[2016-09-29] MEDS: TAMSULOSIN 0.4 MG CAP.ER.24H PO SCH (21:55)
[2016-09-29] MEDS: PRAVASTATIN SODIUM 40 MG TAB PO SCH (21:55)
[2016-09-30] MEDS: IPRATROPIUM-ALBUTEROL 3 ML NEB INHALATION PRN ×4 (03:12→23:43)
[2016-09-30] MEDS: DIAZEPAM 2 MG TAB PO PRN (03:14)
[2016-09-30 06:46] LABS: Anisocytosis Slight; Basophils % (A) 0 %; CH 31.8; CHCM 30.1; Eosinophils # (A) 0.1 k/uL (0-0.7); Eosinophils % (A) 2 %; HCT 26.3 % (39.0-53.0); HDW 2.34; HGB 7.9 gm/dL (13.0-17.5); Hypochromasia Moderate; Luc # (Auto) 0.15; Luc % (Auto) 2; Lymphocytes # (A) 0.7 k/uL (1.0-4.8); Lymphocytes % (A) 10 %; MCH 31.9 pg (25.0-35.0); MCHC 30.1 g/dL (31.0-37.0); MCV 106.1 fL (80.0-100.0); Macrocytosis Moderate; Mean Platelet Volume 8.5; Monocytes # (A) 0.4 k/uL (0-1.0); Monocytes % (A) 5 %; Neutrophils # (A) 5.7 k/uL (1.3-7.7); Neutrophils % (A) 81 %; RBC 2.48 m/uL (4.30-5.90); RDW 16.7 % (11.5-15.5); WBC (Perox) 7.32
[2016-09-30] MEDS: HEPARIN SODIUM,PORCINE 5,000 UNIT/ML 1 ML VIAL SQ SCH ×3 (06:48→15:43)
[2016-09-30 06:59] LABS: Anion Gap 5 mmol/L; Blood Urea Nitrogen 9 mg/dL (9-20); Calcium 7.4 mg/dL (8.4-10.2); Carbon Dioxide 26 mmol/L (22-30); Chloride 107 mmol/L (98-107); Glucose 107 mg/dL (74-99); Non-African American GFR(MDRD) >60 (>60 ml/min/1.73 sqM); Potassium 4.1 mmol/L (3.5-5.1); Sodium 138 mmol/L (137-145)
[2016-09-30] MEDS: IPRATROPIUM-ALBUTEROL 3 ML NEB INHALATION SCH ×4 (07:39→18:09)
[2016-09-30] MEDS: SYMBICORT 160-4.5 MCG INHALER INHALATION SCH ×2 (07:39→20:44)
--- NOTE | 2016-09-30 07:39 | PN ---
DATE OF SERVICE: 09/29/2016 Attending note: This patient was seen and examined by me earlier today. I reviewed the note of my nurse practitioner, Ms. Perez. Discussed additional findings as below. The patient has been smoking and drinking alcohol at home, presents with atrial fibrillation with rapid ventricular rate, and also COPD exacerbation. Heart rate is holding around 120s. Breathing is somewhat getting better. Tolerating his diet. Has been out of bed. On examination, heart rate up to heart rate up to one teen's. Blood pressure 120/70. LUNGS: Decreased breath sounds and expiratory crackles. CARDIOVASCULAR: Heart sounds irregular. Some edema is present. PSYCH: Awake. Answering questions. INVESTIGATIONS: Hemoglobin 8.9. ASSESSMENT: 1. Persistent atrial fibrillation, rate uncontrolled. Slow to respond. 2. Acute chronic obstructive pulmonary disease exacerbation. 3. Alcoholic cardiomyopathy; ejection fraction 40 to 50%. PLAN: Withdrawal dose will be scaled the back. Patient is on amiodarone and p.o. Cardizem and also on Lopressor and continue with breathing treatment.
[2016-09-30] MEDS: MULTIVITAMINS, THERA 1 EACH TAB PO SCH (09:14)
[2016-09-30] MEDS: DICYCLOMINE 10 MG CAP PO SCH ×3 (09:14→21:17)
[2016-09-30] MEDS: METOPROLOL TARTRATE 50 MG TAB PO SCH ×2 (09:14→21:17)
[2016-09-30] MEDS: AMIODARONE 200 MG TAB PO SCH ×2 (09:14→15:43)
[2016-09-30] MEDS: DILTIAZEM ORAL 60 MG TAB PO SCH ×3 (09:15→21:18)
[2016-09-30] MEDS: THIAMINE 100 MG TAB PO SCH (09:15)
[2016-09-30] MEDS: DISULFIRAM 250 MG PO SCH ×2 (10:20→10:27)
--- NOTE | 2016-09-30 11:19 | P.PN ---
Subjective Principal diagnosis: Atrial fibrillation This is a 71-year-old gentleman known to Dr. MARKO Bermudez in the office, he has known history of paroxysmal atrial fibrillation, mild cardiomyopathy, hypertension, hyperlipidemia, he presented to the hospital with EtOH intoxication. Cardiology consultation was requested because of atrial fibrillation with rapid ventricular response. Patient was seen and examined this morning, continues to be in atrial fibrillation, however his heart rate is under adequate control. He was felt not to be a candidate for anticoagulation because of his recurrent EtOH intoxication episodes. Objective - Vital Signs Vital signs: Vital Signs Temp 97.9 F 09/30/16 08:00 Pulse 99 09/30/16 08:00 Resp 22 09/30/16 08:00 BP 107/66 09/30/16 08:00 Pulse Ox 97 09/30/16 08:00 Intake & Output 09/29/16 09/30/16 09/30/16 18:59 06:59 18:59 Intake Total 631 240 Output Total 200 700 Balance 431 -700 240 Weight 82.4 kg Intake: Oral 630 240 Blood Product 1 Output: Urine 200 700 Other: Voiding Method Toilet Toilet Toilet Urinal Urinal Urinal # Voids 1 # Bowel Movements 1 1 - Exam PHYSICAL EXAMINATION: HEENT: [Head is atraumatic, normocephalic. Pupils equal, round. Neck is supple. There is no elevated jugular venous pressure.] HEART EXAMINATION: Heart S1 and S2 irregularly irregular systolic murmur is heard CHEST EXAMINATION: lungs reveal scattered wheezes with rhonchi throughout ABDOMEN: [ Soft, nontender. Bowel sounds are heard. No organomegaly noted]. EXTREMITIES:[ 2+ peripheral pulses with no evidence of peripheral edema and no calf tenderness noted]. NEUROLOGIC [patient is awake, alert and oriented -3.] . - Labs CBC & Chem 7: 09/30/16 06:22 09/30/16 06:18 Labs: Abnormal Lab Results - Last 24 Hours (Table) 09/30/16 09/30/16 Range/Units 06:18 06:22 RBC 2.48 L (4.30-5.90) m/uL Hgb 7.9 L (13.0-17.5) gm/dL Hct 26.3 L (39.0-53.0) % MCV 106.1 H (80.0-100.0) fL MCHC 30.1 L (31.0-37.0) g/dL RDW 16.7 H (11.5-15.5) % Plt Count 124 L (150-450) k/uL Lymphocytes # 0.7 L (1.0-4.8) k/uL Glucose 107 H (74-99) mg/dL Calcium 7.4 L (8.4-10.2) mg/dL Assessment and Plan (1) Paroxysmal a-fib Status: Acute (2) Non-compliance Status: Acute (3) HTN (hypertension) Status: Acute (4) COPD (chronic obstructive pulmonary disease) Status: Acute (5) Alcohol abuse Status: Chronic (6) Cardiomyopathy, alcoholic Status: Chronic (7) Nicotine dependence Status: Chronic Plan: Upon review of the patient's rhythm strips, it did appear that he is in and out of atrial fibrillation. Patient is not felt to be a candidate for anticoagulation because of his recurrent episodes of EtOH intoxication. At this time we will continue his current medications. We will make him a follow- up appointment to see Dr. MARKO Bermudez in the office post discharge. DNP note has been reviewed, I agree with a documented findings and plan of care. Patient was seen and examined.
[2016-09-30] MEDS: DIAZEPAM 2 MG TAB PO SCH ×2 (12:29→15:43)
[2016-09-30] MEDS ORDERED: FUROSEMIDE 10 MG/ML 2 ML VIAL IV ONE (14:36)
--- NOTE | 2016-09-30 14:43 | XR ---
EXAMINATION TYPE: XR chest 1V portable DATE OF EXAM: 09/30/2016 COMPARISON: Prior chest x-ray 09/26/2016 HISTORY: Shortness of breath TECHNIQUE: Single frontal view of the chest is obtained. FINDINGS: Similar findings. Suspect underlying emphysematous change. Patchy increased density presen t at the right lung base greater than left. Cardiomediastinal silhouette, pulmonary vascularity and h casandra are stable. There are overlying cardiac leads. IMPRESSION: Difficult to exclude basilar pneumonia. Emphysema.
[2016-09-30] MEDS ORDERED: FUROSEMIDE 10 MG/ML 4 ML VIAL IV STA (15:13)
--- NOTE | 2016-09-30 17:50 | PN ---
DATE OF SERVICE: 09/30/2016 PRESENTING COMPLAINT: Tired, short of breath, lethargic. INTERVAL HISTORY: This is a patient who presented with atrial fibrillation, rapid ventricular response, COPD exacerbation and ETOH use. Lying in bed, tolerating his diet. Mild shortness of breath noted ambulatory in the subramanian with assistance. Review of systems done for constitutional, cardiovascular, GI, pulmonary, with relevant findings as above. CURRENT MEDICATIONS: 1. [place] 10/325. 2. DuoNeb. 3. Amiodarone 200 mg p.o. b.i.d. 4. Valium 1 mg p.o. b.i.d. 5. Diltiazem 60 mg p.o. t.i.d. 6. Lopressor 50 mg p.o. b.i.d. PHYSICAL EXAMINATION: VITAL SIGNS: Temperature 97.9, pulse 99, respiratory rate 22, blood pressure 107/66, oxygen saturation 97% on 3 liters. GENERAL APPEARANCE: Patient is sitting up in bed, sleeping, easily arousable. No acute distress. EYES: Pupils equal. Conjunctivae normal. NECK: JVD raised is not palpable. Respiratory effort is mildly labored. LUNGS: Diminished bilaterally, crackles heard throughout bilateral lung rocha. CARDIOVASCULAR: First and second sounds irregular, trace edema. ABDOMEN: Soft, nontender. Liver and spleen not palpable. PSYCHIATRY: Alert and oriented x3. Mood and affect are normal. INVESTIGATIONS: Hemoglobin 7.9, platelet count 124. ASSESSMENT: 1. Atrial fibrillation with rapid ventricular rate, uncontrolled, slowly improving. 2. Acute chronic obstructive pulmonary disease exacerbation, improving. 3. Hyperlipidemia. 4. Essential hypertension. 5. Chronic nicotine dependence. Patient is a smoker. 6. Chronic alcohol dependence. 7. 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 8. Hypertensive heart disease with moderate concentric left ventricular hypertrophy. 9. Macrocytic anemia with hemoglobin drop likely from alcohol use, rule out acute source. PLAN: Patient's hemoglobin had a 1 gram drop today, GI consult to rule out possible source. Signs and symptoms of withdrawal are minimal. Valium has been reduced. Prognosis remains guarded. We will continue to monitor. Patient seen and examined by nurse practitioner, Jodi Perez, and all elements of the case discussed with attending, Dr. Norton. I performed a history and physical examination of this patient and discussed the same with the dictator. I agree with the dictator's note. Any additional findings/opinions, etc. will be noted.
[2016-09-30] MEDS: PRAVASTATIN SODIUM 40 MG TAB PO SCH (21:17)
[2016-09-30] MEDS: TAMSULOSIN 0.4 MG CAP.ER.24H PO SCH (21:17)
[2016-10-01] MEDS: AMIODARONE 200 MG TAB PO SCH ×4 (00:31→21:20)
[2016-10-01] MEDS: HEPARIN SODIUM,PORCINE 5,000 UNIT/ML 1 ML VIAL SQ SCH ×3 (00:31→15:26)
[2016-10-01] MEDS: DIAZEPAM 2 MG TAB PO SCH ×4 (00:33→21:20)
[2016-10-01] MEDS: IPRATROPIUM-ALBUTEROL 3 ML NEB INHALATION PRN ×3 (03:41→23:57)
[2016-10-01 06:25] LABS: Anisocytosis Slight; CH 32.2; CHCM 30.8; HCT 25.9 % (39.0-53.0); HDW 2.35; HGB 8.1 gm/dL (13.0-17.5); Hypochromasia Slight; MCH 32.6 pg (25.0-35.0); MCHC 31.1 g/dL (31.0-37.0); MCV 104.7 fL (80.0-100.0); Macrocytosis Moderate; Mean Platelet Volume 9.7; RBC 2.47 m/uL (4.30-5.90); WBC 6.3 k/uL (3.8-10.6)
[2016-10-01 06:48] LABS: Anion Gap 5 mmol/L; Blood Urea Nitrogen 10 mg/dL (9-20); Calcium 7.2 mg/dL (8.4-10.2); Carbon Dioxide 29 mmol/L (22-30); Chloride 102 mmol/L (98-107); Glucose 108 mg/dL (74-99); Non-African American GFR(MDRD) >60 (>60 ml/min/1.73 sqM); Potassium 3.5 mmol/L (3.5-5.1); Sodium 136 mmol/L (137-145)
[2016-10-01] MEDS: IPRATROPIUM-ALBUTEROL 3 ML NEB INHALATION SCH ×4 (07:02→19:15)
[2016-10-01] MEDS: SYMBICORT 160-4.5 MCG INHALER INHALATION SCH ×2 (07:02→19:15)
--- NOTE | 2016-10-01 07:30 | PN ---
DATE OF SERVICE: 09/30/2016 Attending note: This patient was seen examined by me earlier today. Reviewed the note of my nurse practitioner, Ms. Perez. Discussed additional findings as above. The patient was admitted atrial fibrillation, rate is still up to about 120s, COPD exacerbation, tolerating his diet. Some shortness of breath, still present. On examination, blood pressure 107/76, pulse ox 97% on 3 liters. LUNGS: Decreased breath sounds expiratory wheezing. CARDIOVASCULAR: Irregular heart sounds. ( ) edema. Patient is awake, answer questions. Telemetry shows heart rate above 120s. Hemoglobin is 7.9. ASSESSMENT: 1. Atrial fibrillation with rapid ventricular rate, still, uncontrolled. 2. Chronic obstructive pulmonary disease exacerbation. 3. Macrocytic anemia, likely from alcohol use but has been a drop in hemoglobin. PLAN: Will get a gastroenterology consult. Check patient's B12 level. Valium is further scaled back.
[2016-10-01 07:55] LABS: Vitamin B12 518 pg/mL
[2016-10-01] MEDS: METOPROLOL TARTRATE 50 MG TAB PO SCH ×3 (08:26→21:21)
[2016-10-01] MEDS: THIAMINE 100 MG TAB PO SCH (08:26)
[2016-10-01] MEDS: DILTIAZEM ORAL 60 MG TAB PO SCH (08:26)
[2016-10-01] MEDS: MULTIVITAMINS, THERA 1 EACH TAB PO SCH (08:26)
[2016-10-01] MEDS: DICYCLOMINE 10 MG CAP PO SCH ×3 (08:26→21:20)
[2016-10-01] MEDS ORDERED: POTASSIUM CHLORIDE ER 20 MEQ TAB.ER PO STA (08:40)
--- NOTE | 2016-10-01 10:18 | P.CONS ---
History of Present Illness - Reason for Consult Consult date: 10/01/16 Anemia Requesting physician: Martin Norton - History of Present Illness 71-year-old male with a past medical history of long-standing EtOH abuse, atrial fibrillation, alcoholic cardiomyopathy, GI bleeds, COPD, anemia, macrocytosis admitted with atrial fibrillation with RVR, COPD exacerbation. Consultation requested for anemia and drop in hemoglobin. Prior to admission patient reported having intermittent painless red blood tinged bowel movements. No reports of overt bleeding such as hematemesis hematochezia or melena since admission. Denies abdominal pain. Afebrile. Patient drinks vodka on a daily basis and verbalizes he will not quit. Admission hemoglobin 10.9 decreased to 8.9 as low as 7.9 yesterday presently 8.1. MCV 100-106. INR 1.1. Over the last year hemoglobin has fluctuated between 7.9-12.3. BUN 10. Creatinine 1.0. B12 518. Folate 5.16. Total bilirubin 0.9. AST 108. ALT 77. Alkaline phosphates 108. Colonoscopy December 2015 findings were scattered diverticulosis with possible areas of ischemia. Multiple polypectomies pathology indicated tubular adenomas and diverticulosis coli. Review of Systems Constitutional: Denies fever, chills, sweats, weight gain, or loss. HEENT: Negative for migraines, blurred vision or loss, earaches, drainage, tinnitus, oral mucosal lesions, dysphagia, or odynophagia. Cardiac: Atrial fibrillation. Angina. Hyperlipidemia. Hypertension. Heart failure. Alcoholic cardiomyopathy. Negative for chest pain, arrhythmias, or palpitation. Respiratory: Pneumonia. Nicotine cigarette dependency. Negative for shortness of breath, hemoptysis, cough, or sputum production. Gastrointestinal: See HPI for pertinent findings. Genitourinary: Negative for hematuria, urgency, frequency, polyuria, dysuria, or penile discharge. Musculoskeletal: Carpal tunnel. Cervical and lumbar spondylosis. Neurologic: Negative for stroke or TIA. Endocrine: Negative for thyroid problems. Skin: Negative for rash or itching. Psychiatric: Negative history for depression and anxiety All systems: negative (See HPI) Past Medical History Past Medical History: Atrial Fibrillation, Chest Pain / Angina, Heart Failure, COPD, Hyperlipidemia, Hypertension, Pneumonia Additional Past Medical History / Comment(s): AFIB,ETOH, ALCOHOLIC CARDIOMYOPATHY, DT'S, CERVICAL AND LUMBAR SPONDYLOSIS, CARPAL TUNNEL disease. History of Any Multi-Drug Resistant Organisms: None Reported Past Surgical History: Back Surgery, Hernia Repair Additional Past Surgical History / Comment(s): right shoulder, bilateral cataract surgery , UMBILICAL HERNIA [place] STONES REMOVED, HAMMER TOE SX X3, with subsequent amputation of the second great toe on his right foot, pain injections through neurology, colonoscopy Past Anesthesia/Blood Transfusion Reactions: No Reported Reaction Past Psychological History: No Psychological Hx Reported Additional Psychological History / Comment(s): Lives with friend, Bekah Arriaga. Says she lives in the upstairs of his home. Smoking Status: Current every day smoker Past Alcohol Use History: Daily Additional Past Alcohol Use History / Comment(s): Smokes 1 PPD-REFUSED SMOKING BOOKLET, USUALLYDRINKS A FIFTH OF VODKA BETWEEN 9PM-MIDNIGHT DAILY(09-26-16 STATED DRANK A GALLON OF VODKA) Past Drug Use History: None Reported - Past Family History Father Family Medical History: Diabetes Mellitus Mother History Unknown: Yes Additional Family Medical History / Comment(s): 2001 Medications and Allergies Home Medications Medication Instructions Recorded Confirmed Type HYDROcodone/APAP 10-325MG [[place] 1 tab PO Q6H PRN 08/27/13 09/26/16 History 10-325] Budesonide/Formoterol Fumarate 2 puff INHALATION RT-BID 01/17/16 09/26/16 History [Symbicort 160-4.5 Mcg Inhaler] Tamsulosin HCl [Flomax] 0.4 mg PO HS 01/17/16 09/26/16 History Albuterol Sulfate [Proair Hfa] 1 - 2 puff INHALATION RT-Q6H PRN 09/14/16 History Rivaroxaban [Xarelto] 20 mg PO DAILY 09/14/16 09/26/16 History Ipratropium-Albuterol Nebulize 3 ml INHALATION RT-QID 09/26/16 09/26/16 History [Duoneb 0.5 mg-3 mg/3 ml Soln] Metoprolol Tartrate [Lopressor] 25 mg PO BID 09/26/16 09/26/16 History predniSONE See Taper PO DAILY 09/26/16 09/26/16 History Allergies Allergy/AdvReac Type Severity Reaction Status Date / Time cephalexin monohydrate Allergy Rash/Hives Verified 09/26/16 15:47 [From Keflex] Physical Exam Vitals: Vital Signs Temp Pulse Pulse Resp BP Pulse Ox 10/01/16 07:12 100 10/01/16 07:04 96 10/01/16 04:00 97.3 F L 101 H 22 112/61 98 10/01/16 03:54 80 10/01/16 03:44 88 10/01/16 00:00 85 20 113/48 96 09/30/16 23:56 88 09/30/16 23:46 88 09/30/16 20:53 104 H 09/30/16 20:44 100 09/30/16 20:00 97.8 F 113 H 18 100/58 98 09/30/16 18:20 120 H 09/30/16 18:09 114 H 09/30/16 15:48 97.9 F 124 H 22 108/79 100 09/30/16 14:29 118 H 09/30/16 14:22 112 H 09/30/16 11:35 97.3 F L 111 H 22 115/52 99 09/30/16 11:26 102 H 09/30/16 11:17 102 H Intake and Output 09/30/16 10/01/16 10/01/16 22:59 06:59 14:59 Intake Total 200 320 Output Total 1950 400 Balance -1750 -400 320 Intake: Oral 200 320 Output: Urine 1950 400 Straight 900 Other: Voiding Method Toilet Urinal Weight 79.5 kg General appearance: The patient is alert, oriented, in no acute distress. HET: Head is normocephalic and atraumatic. Pupils are equal and reactive. Oropharynx is clear without lesions. Neck: Supple without lymphadenopathy. Trachea midline. Heart: S1 S2. Irregular Lungs: No crackles or wheezes are heard. Abdomen: Soft, nontender, nondistended with bowel sounds. No peritoneal signs. No palpable organomegaly or masses. Extremities: Scattered scabbed sores on all extremities. Neurological: No focal deficits. Strength and sensation are grossly intact. Results CBC & Chem 7: 10/01/16 06:13 10/01/16 06:13 Labs: Abnormal Lab Results - Last 24 Hours (Table) 10/01/16 10/01/16 Range/Units 06: 06:13 RBC 2.47 L (4.30-5.90) m/uL Hgb 8.1 L (13.0-17.5) gm/dL Hct 25.9 L (39.0-53.0) % MCV 104.7 H (80.0-100.0) fL RDW 17.0 H (11.5-15.5) % Plt Count 122 L (150-450) k/uL Sodium 136 L (137-145) mmol/L Glucose 108 H (74-99) mg/dL Calcium 7.2 L (8.4-10.2) mg/dL Assessment and Plan (1) GI bleed Narrative/Plan: Painless intermittent red bloody bowel movements prior to admission suspect diverticular in nature with a history of diverticular bleed last colonoscopy 2015. Status: Acute (2) Anemia Narrative/Plan: All tied factorial component of acute blood loss as well as secondary to alcohol liver disease and suspected poor nutrition. Status: Acute (3) Alcoholic liver disease Status: Acute (4) Macrocytosis Status: Acute (5) Atrial fibrillation with rapid ventricular response Status: Acute (6) COPD (chronic obstructive pulmonary disease) Status: Acute (7) EtOH dependence Status: Acute (8) Diverticulosis of colon Status: Chronic (9) Nicotine dependence Status: Chronic Plan: 1. Presently patient is not actively bleeding. He has no interest in undergoing endoscopic evaluation at this time unless active GI bleed recurs. 2. Continue GI prophylaxis and CBC monitoring. Observe for overt GI bleeding. Diet as tolerated. 3. Will follow with you. Thank you for this kind referral and the opportunity to participate in the care of your patient. This consultation was discussed with Dr. Michaels. The impression and plan of care have been directed as dictated.
--- NOTE | 2016-10-01 12:02 | PN ---
DATE OF SERVICE: 10/01/2016 PRESENTING COMPLAINT: Tired, short of breath, lethargic. INTERVAL HISTORY: This is a patient who presented with atrial fibrillation, rapid ventricular response, COPD exacerbation, EtOH use. Lying in bed, tolerating his diet. Mild shortness of breath noted. Ambulatory in the subramanian with assistance. Review of systems done for constitutional, cardiovascular, GI, pulmonary with relevant findings as above. CURRENT MEDICATIONS: [place], DuoNeb, amiodarone, Valium, diltiazem, Lopressor, Lasix. PHYSICAL EXAM: VITAL SIGNS: Temperature 97.5, heart rate 108, respiratory rate 20, blood pressure 123/64, oxygen saturation 98% on 2 L. GENERAL APPEARANCE: Patient lying in bed, appears comfortable, calm and cooperative. EYES: Pupils equal. Conjunctivae normal. NECK: JVD not raised. Mass not palpable. LUNGS: Diminished with scattered crackles throughout. RESPIRATORY: Effort mildly labored. CARDIOVASCULAR: Irregular, rate in the low 100s to 120s. Mild edema noted. ABDOMEN: Soft, nontender. Liver and spleen not palpable. PSYCHIATRY: Alert and oriented x3. Mood and affect calm. INVESTIGATIONS: Hemoglobin 8.1, platelet count 122. Sodium 136, potassium 3.5, BUN 10, creatinine 1.00. Vitamin B12 of 518, folate 5.16 ASSESSMENT: 1. Atrial fibrillation with rapid ventricular response, uncontrolled, slowly improving. 2. Acute chronic obstructive pulmonary disease exacerbation, improving. 3. Hyperlipidemia. 4. Essential hypertension. 5. Chronic nicotine dependence. Patient is a smoker. 6. Chronic alcohol dependence. 7. Alcoholic cardiomyopathy, ejection fraction 45% to 50%. 8. Hypertensive heart disease with moderate concentric left ventricular hypertrophy. 9. Macrocytic anemia with hemoglobin drop likely from alcohol use, rule out acute source. PLAN: GI consulted. Patient not interested in doing any further invasive testing. Advised to continue to monitor any overt signs or symptoms of bleeding. Signs and symptoms of withdrawal from alcohol are minimal. Valium will again be reduced today. Prognosis remains guarded. We will continue to monitor. Patient was seen and examined by nurse practitioner, Jodi Perez, and all elements of the case discussed with attending, Dr. Norton.
--- NOTE | 2016-10-01 13:36 | P.PN ---
Subjective Principal diagnosis: Atrial fibrillation This is a 71-year-old gentleman known to Dr. MARKO Bermudez in the office, he has known history of paroxysmal atrial fibrillation, mild cardiomyopathy, hypertension, hyperlipidemia, he presented to the hospital with EtOH intoxication. Cardiology consultation was requested because of atrial fibrillation with rapid ventricular response. Patient was seen and examined this morning, continues to be in atrial fibrillation, heart rate this morning in the 100s to 120s. Patient wasn't given IV Lasix yesterday afternoon because of significant shortness of breath. His weight today is down 3 kg today. Blood pressure 112/60. Hemoglobin 8.1. Potassium 3.5, BUN 10, creatinine 1.0. BNP level drawn yesterday afternoon 6960. Objective - Vital Signs Vital signs: Vital Signs Temp 98.1 F 10/01/16 11:30 Pulse 100 10/01/16 12:01 Resp 20 10/01/16 11:30 BP 119/51 10/01/16 11:30 Pulse Ox 98 10/01/16 11:30 Intake & Output 09/30/16 10/01/16 10/01/16 18:59 06:59 18:59 Intake Total 840 800 Output Total 1250 1100 Balance -410 -1100 800 Weight 79.5 kg Intake: Oral 840 800 Output: Urine 1250 1100 Straight 900 Other: Voiding Method Toilet Toilet Urinal Urinal - Exam PHYSICAL EXAMINATION: HEENT: [Head is atraumatic, normocephalic. Pupils equal, round. Neck is supple. There is no elevated jugular venous pressure.] HEART EXAMINATION: Heart S1 and S2 irregularly irregular systolic murmur is heard CHEST EXAMINATION: lungs reveal scattered wheezes with rhonchi throughout, improved from yesterday. ABDOMEN: [ Soft, nontender. Bowel sounds are heard. No organomegaly noted]. EXTREMITIES:[ 2+ peripheral pulses with no evidence of peripheral edema and no calf tenderness noted]. NEUROLOGIC [patient is awake, alert and oriented -3.] . - Labs CBC & Chem 7: 10/01/16 06:13 10/01/16 06:13 Labs: Abnormal Lab Results - Last 24 Hours (Table) 10/01/16 10/01/16 Range/Units 06:13 06:13 RBC 2.47 L (4.30-5.90) m/uL Hgb 8.1 L (13.0-17.5) gm/dL Hct 25.9 L (39.0-53.0) % MCV 104.7 H (80.0-100.0) fL RDW 17.0 H (11.5-15.5) % Plt Count 122 L (150-450) k/uL Sodium 136 L (137-145) mmol/L Glucose 108 H (74-99) mg/dL Calcium 7.2 L (8.4-10.2) mg/dL Assessment and Plan (1) Paroxysmal a-fib Status: Acute (2) Non-compliance Status: Acute (3) HTN (hypertension) Status: Acute (4) COPD (chronic obstructive pulmonary disease) Status: Acute (5) Alcohol abuse Status: Chronic (6) Cardiomyopathy, alcoholic Status: Chronic (7) Nicotine dependence Status: Chronic Plan: Upon review of the patient's rhythm strips, it did appear that he is in and out of atrial fibrillation. Heart rate today is in the 100s to 120s. We will increase the dose of Cardizem to 90 mg by mouth 3 times a day. Patient is not felt to be a candidate for anticoagulation because of his recurrent episodes of EtOH intoxication. DNP note has been reviewed, I agree with a documented findings and plan of care. Patient was seen and examined.
[2016-10-01] MEDS: DILTIAZEM ORAL 30 MG TAB PO SCH ×2 (15:26→21:21)
[2016-10-01 16:26] LABS: Anion Gap 4 mmol/L; Blood Urea Nitrogen 11 mg/dL (9-20); Calcium 7.5 mg/dL (8.4-10.2); Carbon Dioxide 32 mmol/L (22-30); Chloride 101 mmol/L (98-107); Glucose 113 mg/dL (74-99); Non-African American GFR(MDRD) >60 (>60 ml/min/1.73 sqM); Sodium 137 mmol/L (137-145)
[2016-10-01] MEDS: PRAVASTATIN SODIUM 40 MG TAB PO SCH (21:20)
[2016-10-01] MEDS: TAMSULOSIN 0.4 MG CAP.ER.24H PO SCH (21:20)
[2016-10-02] MEDS: HEPARIN SODIUM,PORCINE 5,000 UNIT/ML 1 ML VIAL SQ SCH ×4 (00:55→23:33)
[2016-10-02] MEDS: IPRATROPIUM-ALBUTEROL 3 ML NEB INHALATION PRN ×2 (03:00→23:02)
[2016-10-02 06:16] LABS: Anisocytosis Slight; CH 31.9; HDW 2.36; HGB 7.9 gm/dL (13.0-17.5); Hypochromasia Moderate; MCH 32.5 pg (25.0-35.0); MCHC 30.5 g/dL (31.0-37.0); MCV 106.4 fL (80.0-100.0); Macrocytosis Marked; Mean Platelet Volume 8.6; RBC 2.44 m/uL (4.30-5.90); RDW 16.5 % (11.5-15.5)
[2016-10-02] MEDS: SYMBICORT 160-4.5 MCG INHALER INHALATION SCH ×2 (06:16→19:46)
[2016-10-02] MEDS: IPRATROPIUM-ALBUTEROL 3 ML NEB INHALATION SCH ×4 (06:16→19:46)
[2016-10-02 06:30] LABS: Anion Gap 4 mmol/L; Blood Urea Nitrogen 14 mg/dL (9-20); Calcium 7.4 mg/dL (8.4-10.2); Carbon Dioxide 28 mmol/L (22-30); Chloride 105 mmol/L (98-107); Glucose 92 mg/dL (74-99); Non-African American GFR(MDRD) >60 (>60 ml/min/1.73 sqM); Potassium 4.3 mmol/L (3.5-5.1); Sodium 137 mmol/L (137-145)
[2016-10-02] MEDS: METOPROLOL TARTRATE 50 MG TAB PO SCH ×2 (08:08→20:28)
[2016-10-02] MEDS: DICYCLOMINE 10 MG CAP PO SCH (08:08)
[2016-10-02] MEDS: AMIODARONE 200 MG TAB PO SCH ×3 (08:08→20:28)
[2016-10-02] MEDS: DILTIAZEM ORAL 30 MG TAB PO SCH ×3 (08:08→20:27)
[2016-10-02] MEDS: FUROSEMIDE 40 MG TAB PO SCH (08:09)
[2016-10-02] MEDS: THIAMINE 100 MG TAB PO SCH (08:09)
[2016-10-02] MEDS: MULTIVITAMINS, THERA 1 EACH TAB PO SCH (08:09)
[2016-10-02] MEDS: DIAZEPAM 2 MG TAB PO SCH (08:46)
--- NOTE | 2016-10-02 09:55 | P.PN ---
Subjective Principal diagnosis: anemia No GI bleeding. Hgb 7.9. Denies abdominal pain. Objective - Vital Signs Vital signs: Vital Signs Temp 97.4 F L 10/02/16 08:00 Pulse 99 10/02/16 08:00 Resp 26 H 10/02/16 08:00 BP 113/68 10/02/16 08:00 Pulse Ox 97 10/02/16 08:00 Intake & Output 10/01/16 10/02/16 10/02/16 18:59 06:59 18:59 Intake Total 1180 300 240 Balance 1180 300 240 Weight 81 kg Intake: Intake, IV Titration 0 Amount Sodium Chloride 0.9% 1, 0 000 ml @ 250 mls/hr IV . Q4H6M LUKASZ with Potassium Chloride 20 meq with Mvi, Adult No.4 with Vit K 10 ml with Thiamine 100 mg with Folic Acid 1 mg Rx#: [id number] Oral 1180 300 240 Other: Voiding Method Toilet Urinal # Bowel Movements 1 - Exam General appearance: The patient is alert, oriented, in no acute distress. HET: Head is normocephalic and atraumatic. Pupils are equal and reactive. Oropharynx is clear without lesions. Neck: Supple without lymphadenopathy. Trachea midline. Heart: S1 S2. Irregular Lungs: No crackles or wheezes are heard. Abdomen: Soft, nontender, nondistended with bowel sounds. No peritoneal signs. No palpable organomegaly or masses. Extremities: Scattered scabbed sores on all extremities. Neurological: No focal deficits. Strength and sensation are grossly intact. - Labs CBC & Chem 7: 10/02/16 05:53 10/02/16 05:53 Labs: Abnormal Lab Results - Last 24 Hours (Table) 10/01/16 10/02/16 10/02/16 Range/Units 15:44 05:53 05:53 RBC 2.44 L (4.30-5.90) m/uL Hgb 7.9 L (13.0-17.5) gm/dL Hct 26.0 L (39.0-53.0) % MCV 106.4 H (80.0-100.0) fL MCHC 30.5 L (31.0-37.0) g/dL RDW 16.5 H (11.5-15.5) % Plt Count 139 L (150-450) k/uL Carbon Dioxide 32 H (22-30) mmol/L Glucose 113 H (74-99) mg/dL Calcium 7.5 L 7.4 L (8.4-10.2) mg/dL Assessment and Plan (1) GI bleed Narrative/Plan: Painless intermittent red bloody bowel movements prior to admission suspect diverticular in nature with a history of diverticular bleed last colonoscopy 2015. Status: Acute (2) Anemia Narrative/Plan: All tied factorial component of acute blood loss as well as secondary to alcohol liver disease and suspected poor nutrition. Status: Acute (3) Alcoholic liver disease Status: Acute (4) Macrocytosis Status: Acute (5) Atrial fibrillation with rapid ventricular response Status: Acute (6) COPD (chronic obstructive pulmonary disease) Status: Acute (7) EtOH dependence Status: Acute (8) Diverticulosis of colon Status: Chronic (9) Nicotine dependence Status: Chronic Plan: 1. Presently patient is not actively bleeding. He has no interest in undergoing endoscopic evaluation at this time unless active GI bleed recurs. 2. Continue GI prophylaxis and CBC monitoring. Observe for overt GI bleeding. Diet as tolerated. 3. Will follow as needed. Assessment and plan of care discussed cruz Michaels
--- NOTE | 2016-10-02 11:29 | P.PN ---
Subjective Principal diagnosis: Atrial fibrillation This is a 71-year-old gentleman known to Dr. MARKO Bermudez in the office, he has known history of paroxysmal atrial fibrillation, mild cardiomyopathy, hypertension, hyperlipidemia, he presented to the hospital with EtOH intoxication. Cardiology consultation was requested because of atrial fibrillation with rapid ventricular response. Patient was seen and examined this morning, continues to be in atrial fibrillation, heart rate this morning in the 90s . Arrangements being made for discharge today. Objective - Vital Signs Vital signs: Vital Signs Temp 97.4 F L 10/02/16 08:00 Pulse 96 10/02/16 11:12 Resp 26 H 10/02/16 08:00 BP 113/68 10/02/16 08:00 Pulse Ox 97 10/02/16 08:00 Intake & Output 10/01/16 10/02/16 10/02/16 18:59 06:59 18:59 Intake Total 1180 300 240 Balance 1180 300 240 Weight 81 kg Intake: Intake, IV Titration 0 Amount Sodium Chloride 0.9% 1, 0 000 ml @ 250 mls/hr IV . Q4H6M LUKASZ with Potassium Chloride 20 meq with Mvi, Adult No.4 with Vit K 10 ml with Thiamine 100 mg with Folic Acid 1 mg Rx#: [id number] Oral 1180 300 240 Other: Voiding Method Toilet Urinal # Bowel Movements 1 - Exam PHYSICAL EXAMINATION: HEENT: [Head is atraumatic, normocephalic. Pupils equal, round. Neck is supple. There is no elevated jugular venous pressure.] HEART EXAMINATION: Heart S1 and S2 irregularly irregular systolic murmur is heard CHEST EXAMINATION: lungs reveal scattered wheezes with rhonchi throughout, improved from yesterday. ABDOMEN: [ Soft, nontender. Bowel sounds are heard. No organomegaly noted]. EXTREMITIES:[ 2+ peripheral pulses with no evidence of peripheral edema and no calf tenderness noted]. NEUROLOGIC [patient is awake, alert and oriented -3.] . - Labs CBC & Chem 7: 10/02/16 05:53 10/02/16 05:53 Labs: Abnormal Lab Results - Last 24 Hours (Table) 10/01/16 10/02/16 10/02/16 Range/Units 15:44 05:53 05:53 RBC 2.44 L (4.30-5.90) m/uL Hgb 7.9 L (13.0-17.5) gm/dL Hct 26.0 L (39.0-53.0) % MCV 106.4 H (80.0-100.0) fL MCHC 30.5 L (31.0-37.0) g/dL RDW 16.5 H (11.5-15.5) % Plt Count 139 L (150-450) k/uL Carbon Dioxide 32 H (22-30) mmol/L Glucose 113 H (74-99) mg/dL Calcium 7.5 L 7.4 L (8.4-10.2) mg/dL Assessment and Plan (1) Paroxysmal a-fib Status: Acute (2) Non-compliance Status: Acute (3) HTN (hypertension) Status: Acute (4) COPD (chronic obstructive pulmonary disease) Status: Acute (5) Alcohol abuse Status: Chronic (6) Cardiomyopathy, alcoholic Status: Chronic (7) Nicotine dependence Status: Chronic Plan: Upon review of the patient's rhythm strips, it did appear that he is in and out of atrial fibrillation. Heart rate today is in the 90s. he may be able to be discharged from cardiology's perspective, we'll continue current dose of Cardizem. A follow-up appointment will be made with Dr. Marlys Bermudez in the office. DNP note has been reviewed, I agree with a documented findings and plan of care. Patient was seen and examined.
--- NOTE | 2016-10-02 14:12 | PN ---
DATE OF SERVICE: 09/30/2016 ATTENDING NOTE: This patient was seen and examined by me on 10/01/2016. I reviewed the note of my nurse practitioner, Ms. Perez. Discussed additional findings as below. Patient admitted with atrial fibrillation, COPD exacerbation. The patient drinks significant alcohol. Lying in bed, tired-appearing, still short of breath, has been out of bed. On examination, blood pressure 120/64, pulse ox 98% on 2 L, respiratory rate is about 20. LUNGS: Decreased breath sounds. Some prolonged expiratory crackles, some wheezing. PSYCH: Patient awake, answering questions, stating he wants to go home. INVESTIGATIONS: Hemoglobin 8.1. Patient's proBNP from previous day was 6960 and vitamin B12 and folate came back to be normal. ASSESSMENT: 1. Atrial fibrillation with rapid ventricular rate, still uncontrolled. Heart rate is in 110s. 2. Acute chronic obstructive pulmonary disease exacerbation. 3. Alcoholic cardiomyopathy; ejection fraction 45% to 50%. 4. Macrocytic anemia, probably nutritional from alcohol use. Dose of Valium will be cut back. Patient was seen by GI, no intervention for that. Will follow.
[2016-10-02] MEDS: PRAVASTATIN SODIUM 40 MG TAB PO SCH (20:28)
[2016-10-02] MEDS: TAMSULOSIN 0.4 MG CAP.ER.24H PO SCH (20:28)
--- NOTE | 2016-10-02 21:38 | P.PN ---
Progress Note - Text DATE OF SERVICE: 10/02/2016 PRESENTING COMPLAINT: Shortness of breath INTERVAL HISTORY: This patient was admitted with chest pain and shortness of breath found to have an acute exacerbation of congestive heart failure. Today patient has shortness of breath with minimal exertion. Patient therefore had a chest x-ray, and a VQ scan with concerns for pulmonary embolism. On examination patient was sitting on the bed recovered from the shortness of breath. Patient tolerating her diet , unable to walk long distances without becoming short of breath. REVIEW OF SYSTEMS: Done for constitutional ,cardiovascular, GI, pulmonary with relevant findings as above. CURRENT MEDICATIONS DuoNeb, Zyloprim, Norvasc, Coreg, Lasix. PHYSICAL EXAM: VITAL SIGNS: GENERAL APPEARANCE: Average build. Lying in bed, not in distress. EYES: Pupils equal. Conjunctiva normal. NECK: JVD unable to assess. Mass not palpable. RESPIRATORY: Respiratory effort is labored. Lungs diminished bilaterally scattered crackles heard throughout. CARDIOVASCULAR: First and second sounds normal. No edema. ABDOMEN: Soft. Liver and spleen not palpable. No tenderness. No mass palpable. PSYCHIATRY: Alert and oriented x3. Mood and affect anxious appearing . NEUROLOGICAL: Cranial nerves grossly intact. No facial asymmetry. Power and sensation grossly intact INVESTIGATIONS: Hemoglobin 7.0, platelet count 192, sodium 144, chloride 109, BUNs 37, creatinine 1.58. BNP 1580. Chest x-ray persistent cardiac medically with pulmonary venous congestion as well as small effusions. VQ scan normal. ASSESSMENT: 1. Coronary artery disease, status post cardiac cath with no further intervention for medical management. Ejection fraction 55% 2. Chronic obstructive pulmonary disease in an ex-smoker. 3. Chronic kidney disease, patient's creatinine 1.58. 4. Recurrent vaginal bleeding from outpatient surgery. 5. Chronic diverticulosis. 6. 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 7. Essential hypertension. 8. 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 9. Diabetes mellitus type 2, chronically on insulin. 10. Obesity body mass index of 42. 11. Coronary artery disease with stent to the LAD and right coronary artery. 12. Hyperlipidemia. 13. Her myalgia. 14. Osteoarthritis of multiple joints, bilaterally. 15. Previous history of stress incontinence. 16. Depression, not otherwise specified. PLAN: Patient's shortness of breath likely due to fluid overload, received additional dose of IV Lasix. Coreg was increased per cardiology recommendations for better blood pressure management. Patient's hemoglobin dropped to 7.0 today we' ll consider discontinuing heparin drip. 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 Norton
[2016-10-03 02:05] VITALS: RESP 22
[2016-10-03] MEDS: IPRATROPIUM-ALBUTEROL 3 ML NEB INHALATION PRN ×2 (02:35→09:24)
[2016-10-03 05:47] VITALS: TEMP 96.9
[2016-10-03 06:26] LABS: Anisocytosis Slight; CHCM 30.6; HDW 2.46; HGB 7.7 gm/dL (13.0-17.5); Hypochromasia Moderate; MCH 32.6 pg (25.0-35.0); MCV 105.1 fL (80.0-100.0); Macrocytosis Moderate; Mean Platelet Volume 8.9; RBC 2.37 m/uL (4.30-5.90); RDW 16.1 % (11.5-15.5); WBC 4.7 k/uL (3.8-10.6)
[2016-10-03] MEDS: SYMBICORT 160-4.5 MCG INHALER INHALATION SCH (06:43)
[2016-10-03] MEDS: IPRATROPIUM-ALBUTEROL 3 ML NEB INHALATION SCH ×2 (06:43→13:04)
[2016-10-03 06:47] LABS: Anion Gap 3 mmol/L; Blood Urea Nitrogen 12 mg/dL (9-20); Calcium 7.3 mg/dL (8.4-10.2); Carbon Dioxide 30 mmol/L (22-30); Chloride 101 mmol/L (98-107); Glucose 116 mg/dL (74-99); Non-African American GFR(MDRD) >60 (>60 ml/min/1.73 sqM); Potassium 3.6 mmol/L (3.5-5.1); Sodium 134 mmol/L (137-145)
[2016-10-03] MEDS: HEPARIN SODIUM,PORCINE 5,000 UNIT/ML 1 ML VIAL SQ SCH (07:33)
[2016-10-03] MEDS: AMIODARONE 200 MG TAB PO SCH (07:33)
[2016-10-03] MEDS: METOPROLOL TARTRATE 50 MG TAB PO SCH (07:33)
[2016-10-03] MEDS: DILTIAZEM ORAL 30 MG TAB PO SCH (07:33)
[2016-10-03] MEDS: THIAMINE 100 MG TAB PO SCH (07:34)
[2016-10-03] MEDS: FUROSEMIDE 40 MG TAB PO SCH (07:34)
[2016-10-03] MEDS: MULTIVITAMINS, THERA 1 EACH TAB PO SCH (07:34)
--- NOTE | 2016-10-03 08:18 | PN ---
DATE OF SERVICE: 10/02/2016 PRESENTING COMPLAINT: Tired. INTERVAL HISTORY: This patient presented with atrial fibrillation, COPD exacerbation, alcohol withdrawal, today earlier patient's heart rate up to 140s for a good 2 or 3 hours. The patient is keen to go home. Tolerating a diet. Review of systems done for constitutional, cardiovascular, GI, pulmonary findings as above. Current medications are reviewed and include Cardizem and Lopressor. On examination, temperature 97.4, heart rate up to 140s. Respirations 20, blood pressure and 103/68, pulse ox 97% on 2 L. GENERAL APPEARANCE: Sitting in bed, not in distress. EYES: Pupils equal, conjunctivae normal. NECK: JVD not raised. Mass not palpable. RESPIRATORY: Effort increased. LUNGS: Some expiratory crackles. CARDIOVASCULAR: Heart sounds irregular. Minimal edema. ABDOMEN: Soft nontender, liver and spleen not palpable. PSYCHIATRY: Awake, answering questions appropriately. INVESTIGATIONS: Telemetry showed heart rate to be up to 140s this morning, hemoglobin 7.9. Potassium 4.3. ASSESSMENT: 1. Persistent atrial fibrillation with rapid ventricular rate, uncontrolled. 2. Acute chronic obstructive pulmonary disease exacerbation. 3. Hyperlipidemia. 4. Essential hypertension. 5. Chronic nicotine dependence. Patient is a smoker. 6. Chronic alcohol dependence. 7. 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 8. Hypertensive heart disease with moderate concentric left ventricular hypertrophy. 9. Macrocytic anemia with drop in hemoglobin. Patient had some bleeding as an outpatient but refused any further work-up or gastroenterology. PLAN: Discussed with Dr. Perry. At this point, I will increase the patient's Lopressor to 100 mg twice a day from 50 3 times a day. Otherwise, we will have to accept increased heart rate. We will give the patient another 24 hours. This was conveyed to the patient. Follow.
[2016-10-03] MEDS ORDERED: POTASSIUM CHLORIDE ER 20 MEQ TAB.ER PO STA (08:38)
--- NOTE | 2016-10-03 10:13 | P.PN ---
Subjective Principal diagnosis: Atrial fibrillation This is a 71-year-old gentleman known to Dr. MARKO Bermudez in the office, he has known history of paroxysmal atrial fibrillation, mild cardiomyopathy, hypertension, hyperlipidemia, he presented to the hospital with EtOH intoxication. Cardiology consultation was requested because of atrial fibrillation with rapid ventricular response. Patient was seen and examined this morning, continues to be in atrial fibrillation, heart rate this morning in the 80-90s . Arrangements being made for discharge today. Objective - Vital Signs Vital signs: Vital Signs Temp 96.9 F L 10/03/16 04:00 Pulse 112 H 10/03/16 09:35 Resp 22 10/03/16 08:00 BP 110/66 10/03/16 08:00 Pulse Ox 92 L 10/03/16 08:00 Intake & Output 10/02/16 10/03/16 10/03/16 18:59 06:59 18:59 Intake Total 720 600 Output Total 775 Balance -55 600 Intake: Intake, IV Titration 0 Amount Sodium Chloride 0.9% 1, 0 000 ml @ 250 mls/hr IV . Q4H6M LUKASZ with Potassium Chloride 20 meq with Mvi, Adult No.4 with Vit K 10 ml with Thiamine 100 mg with Folic Acid 1 mg Rx#: [id number] Oral 720 600 Output: Urine 775 Other: Voiding Method Toilet Urinal # Voids 3 1 # Bowel Movements 0 - Exam PHYSICAL EXAMINATION: HEENT: [Head is atraumatic, normocephalic. Pupils equal, round. Neck is supple. There is no elevated jugular venous pressure.] HEART EXAMINATION: Heart S1 and S2 irregularly irregular systolic murmur is heard CHEST EXAMINATION: lungs reveal scattered wheezes with rhonchi throughout, improved from yesterday. ABDOMEN: [ Soft, nontender. Bowel sounds are heard. No organomegaly noted]. EXTREMITIES:[ 2+ peripheral pulses with no evidence of peripheral edema and no calf tenderness noted]. NEUROLOGIC [patient is awake, alert and oriented -3.] . - Labs CBC & Chem 7: 10/03/16 06:18 10/03/16 06:18 Labs: Abnormal Lab Results - Last 24 Hours (Table) 10/03/16 10/03/16 Range/Units 06:18 06:18 RBC 2.37 L (4.30-5.90) m/uL Hgb 7.7 L (13.0-17.5) gm/dL Hct 25.0 L (39.0-53.0) % MCV 105.1 H (80.0-100.0) fL RDW 16.1 H (11.5-15.5) % Sodium 134 L (137-145) mmol/L Glucose 116 H (74-99) mg/dL Calcium 7.3 L (8.4-10.2) mg/dL Assessment and Plan (1) Paroxysmal a-fib Status: Acute (2) Non-compliance Status: Acute (3) HTN (hypertension) Status: Acute (4) COPD (chronic obstructive pulmonary disease) Status: Acute (5) Alcohol abuse Status: Chronic (6) Cardiomyopathy, alcoholic Status: Chronic (7) Nicotine dependence Status: Chronic Plan: Upon review of the patient's rhythm strips, it did appear that he is in and out of atrial fibrillation. Heart rate today is in the 80-90s. he may be able to be discharged from cardiology's perspective, we'll continue current dose of Cardizem and beta chidi. A follow-up appointment will be made with Dr. Marlys Bermudez in the office. DNP note has been reviewed, I agree with a documented findings and plan of care. Patient was seen and examined.
[2016-10-03 11:21] VITALS: BMI 23.8
[2016-10-03 11:55] VITALS: BP 111/67
[2016-10-03 13:15] VITALS: PULSE 112
--- NOTE | 2016-10-03 13:27 | P.PN ---
Progress Note - Text DATE OF SERVICE: 10/02/2016 PRESENTING COMPLAINT: Tired short of breath and lethargic INTERVAL HISTORY: This is a patient who presented with atrial fibrillation, rapid ventricular response, COPD exacerbation, EtOH use. Today patient is lying in bed tolerating his diet. Mild shortness of breath noted. Ambulatory with assistance in the hallway. Patient had a three-hour episode of atrial fibrillation with heart rate in the 130s. REVIEW OF SYSTEMS: Done for constitutional ,cardiovascular, GI, pulmonary with relevant findings as above. CURRENT MEDICATIONS: [place], DuoNeb, amiodarone, Valium, diltiazem, Lopressor, Lasix. PHYSICAL EXAM: VITAL SIGNS: Temperature 97.4, heart rate 110, respiratory rate 26, blood pressure 113/68, oxygen saturation 97% on 2 L GENERAL APPEARANCE: Average build. Lying in bed, not in distress. EYES: Pupils equal. Conjunctiva normal. NECK: JVD not raised. Mass not palpable. RESPIRATORY: Respiratory effort normal. Lungs clear to auscultation. CARDIOVASCULAR: First and second sounds normal. No edema. ABDOMEN: Soft. Liver and spleen not palpable. No tenderness. No mass palpable. PSYCHIATRY: Alert and oriented x3. Mood and affect normal. NEUROLOGICAL: Cranial nerves grossly intact. No facial asymmetry. Power and sensation grossly intact INVESTIGATIONS: Hemoglobin 7.9, platelet count 139, BNP 4090. ASSESSMENT: 1. Persistent atrial fibrillation with rapid ventricular rate, still uncontrolled heart rate remains in the 1 teens to 130s, slow to respond. 2. Acute chronic obstructive pulmonary disease exacerbation, slow to respond. 3. Alcoholic cardiomyopathy, ejection fraction 45-50%. 4. Macrocytic anemia, probably nutritional from alcohol use. 5. Hyperlipidemia. 6. Essential hypertension. 7. Chronic alcohol dependence. 8. Hypertensive heart disease with moderate concentric left ventricular hypertrophy. 9. Chronic nicotine dependence. Patient is a smoker. PLAN: Clinical signs and symptoms of alcohol withdrawal minimal, Valium stopped as well as Bentyl. Patient's heart rate remains uncontrolled Lopressor increased to 100 mg twice a day. We'll continue to monitor closely CASHIER ASSOCIATE statement: Patient was seen and examined by nurse practitioner Jodi Perez in all elements of the case discussed with attending is Dr. Norton
--- NOTE | 2016-10-03 19:32 | P.DS ---
Providers Date of admission: 09/26/16 17:51 Attending physician: Martin Norton Consults: 09/26/16 17:51 Consult Physician Urgent Consulting Provider: [facility] Consult Reason/Comments: A. fib with rapid ventricular response Do you want consulting provider notified?: Yes Primary care physician: Darrick Georges Hospital Course: FINAL DIAGNOSES: 1. Persistent atrial fibrillation with rapid ventricular rate secondary to alcoholic cardiomyopathy ejection fraction 45-50%. 2. No anticoagulation, secondary to EtOH use. 3. Acute chronic obstructive pulmonary disease exacerbation, slow to respond. 4. Chronic hypoxic respiratory failure from COPD requiring home oxygen use.. 4. Macrocytic anemia, probably nutritional from alcohol use. 5. Hyperlipidemia. 6. Essential hypertension. 7. Chronic alcohol dependence. 8. Hypertensive heart disease with moderate concentric left ventricular hypertrophy. 9. Chronic nicotine dependence. Patient is a smoker. HOSPITAL COURSE: This is 71-year-old patient who presented with weakness tired and was found to be in atrial fibrillation with rapid ventricular response. Patient has been a longtime smoker and alcoholic user. Patient admitted, provided IV fluids, received Valium for withdrawal, breathing treatments, medications adjusted to gain greater control over atrial fibrillation. Today, patient's heart rate is under better control 100s to 1 teens after increased Lopressor. Breathing is at patient's baseline as he requires oxygen at home, vital signs are stable, tolerating his diet, ambulatory with mild assistance. Therefore patient is stable to be sent home PHYSICAL EXAM: RESPIRATORY: Respiratory effort labored, rhonchi heard bilaterally coughing up clear sputum. CARDIOVASCULAR: Heart sounds irregular, trace edema noted Patient was seen and examined by nurse practitioner Jodi Perez in all elements of the case discussed with attending Dr. Norton. Plan - Discharge Summary New Discharge Prescriptions: New Multivitamins, Thera [Multivitamin (formulary)] 1 each PO DAILY@1200 tab Diltiazem Oral [Cardizem*] 90 mg PO TID #90 tab Furosemide [Lasix] 40 mg PO DAILY #30 tab Metoprolol Tartrate [Lopressor] 100 mg PO BID #60 tab Continue HYDROcodone/APAP 10-325MG [[place] 10-325] 1 tab PO Q6H PRN PRN Reason: Pain Tamsulosin HCl [Flomax] 0.4 mg PO HS Budesonide/Formoterol Fumarate [Symbicort 160-4.5 Mcg Inhaler] 2 puff INHALATION RT-BID Albuterol Sulfate [Proair Hfa] 1 - 2 puff INHALATION RT-Q6H PRN PRN Reason: Shortness Of Breath Pravastatin Sodium [Pravachol] 40 mg PO HS #30 tab Amiodarone [Cordarone] 400 mg PO DIRECTED #60 tab Thiamine [Vitamin B-1] 100 mg PO DAILY tab Disulfiram 250 mg PO DIRECTED #30 tablet Ipratropium-Albuterol Nebulize [Duoneb 0.5 mg-3 mg/3 ml Soln] 3 ml INHALATION RT-QID Discontinued Rivaroxaban [Xarelto] 20 mg PO DAILY Dicyclomine [Bentyl] 10 mg PO TID #90 cap predniSONE See Taper PO DAILY Metoprolol Tartrate [Lopressor] 25 mg PO BID Discharge Medication List HYDROcodone/APAP 10-325MG [[place] 10-325] 1 tab PO Q6H PRN 08/27/13 [History] Budesonide/Formoterol Fumarate [Symbicort 160-4.5 Mcg Inhaler] 2 puff INHALATION RT-BID 01/17/16 [History] Tamsulosin HCl [Flomax] 0.4 mg PO HS 01/17/16 [History] Albuterol Sulfate [Proair Hfa] 1 - 2 puff INHALATION RT-Q6H PRN 09/14/16 [ History] Amiodarone [Cordarone] 400 mg PO DIRECTED #60 tab 09/20/16 [Rx] Disulfiram 250 mg PO DIRECTED #30 tablet 09/20/16 [Rx] Pravastatin Sodium [Pravachol] 40 mg PO HS #30 tab 09/20/16 [Rx] Thiamine [Vitamin B-1] 100 mg PO DAILY tab 09/20/16 [Rx] Ipratropium-Albuterol Nebulize [Duoneb 0.5 mg-3 mg/3 ml Soln] 3 ml INHALATION RT -QID 09/26/16 [History] Multivitamins, Thera [Multivitamin (formulary)] 1 each PO DAILY@1200 tab [Rx] Diltiazem Oral [Cardizem*] 90 mg PO TID #90 tab 10/03/16 [Rx] Furosemide [Lasix] 40 mg PO DAILY #30 tab 10/03/16 [Rx] Metoprolol Tartrate [Lopressor] 100 mg PO BID #60 tab 10/03/16 [Rx] Follow up Appointment(s)/Referral(s): Salvador Bermudez MD [STAFF PHYSICIAN] - 1 Week (office will call for appointment date and time) Paloma Perry MD [STAFF PHYSICIAN] - 10/24/16 6:15 pm [facility], [NON-STAFF] - Darrick Georges MD [Primary Care Provider] - 10/07/16 12:15 pm Ambulatory/Diagnostic Orders: Basic Metabolic Panel [LAB.AMB] Time Frame: 1 Week, Location: Determined By Patient Activity/Diet/Wound Care/Special Instructions: home [id number] Discharge Disposition: HOME SELF-CARE
--- NOTE | 2016-10-04 21:40 | DS ---
DATE OF ADMISSION: 09/26/2016 DATE OF DISCHARGE: 10/03/2016 This patient was seen and examined by me earlier today. I reviewed the discharge summary of my nurse practitioner Ms. Perez, discussed additional findings below. This patient presented with atrial fibrillation, COPD exacerbation, acute hypoxic respiratory failure. Heart rate was controlled by the time of discharge. Patient counseled against smoking and alcohol. On examination, decreased breath sounds, mild wheezing especially crackles. Patient was seen by Dr. Kiara Perry from cardiology. Prognosis guarded, More details in my MANAGER SHIFT note.
--- NOTE | 2016-10-17 20:42 | PN ---
ADDENDUM/CORRECTION Note dictated on 10/02/16 at 0840, transcribed on 10/02/16. The correct date of service is 10/01/16.
== END 2016-10-03 14:37 | disposition home health service (06) | DRG 308 ==
LOC: EC 15:35 → 6SEL 17:51
PROVIDERS: ADMIT Hospitalist; ATTEND Hospitalist
DX: I48.1 Persistent atrial fibrillation (principal); K57.31 Diverticulosis of large intestine without perforation or abscess with bleeding; J96.11 Chronic respiratory failure with hypoxia; I11.0 Hypertensive heart disease with heart failure; I42.6 Alcoholic cardiomyopathy; K70.9 Alcoholic liver disease, unspecified; I50.9 Heart failure, unspecified; J44.1 Chronic obstructive pulmonary disease with (acute) exacerbation; E87.1 Hypo-osmolality and hyponatremia; F10.239 Alcohol dependence with withdrawal, unspecified; F17.210 Nicotine dependence, cigarettes, uncomplicated; E78.5 Hyperlipidemia, unspecified; D53.9 Nutritional anemia, unspecified; D75.89 Other specified diseases of blood and blood-forming organs; I45.10 Unspecified right bundle-branch block; M47.816 Spondylosis without myelopathy or radiculopathy, lumbar region; M47.812 Spondylosis without myelopathy or radiculopathy, cervical region; Z91.19 Patient's noncompliance with other medical treatment and regimen; Z88.1 Allergy status to other antibiotic agents; Z98.42 Cataract extraction status, left eye; Z98.41 Cataract extraction status, right eye; Z87.442 Personal history of urinary calculi; Z99.81 Dependence on supplemental oxygen; Z89.421 Acquired absence of other right toe(s); Z79.51 Long term (current) use of inhaled steroids; Z79.82 Long term (current) use of aspirin; Z79.01 Long term (current) use of anticoagulants; Z79.899 Other long term (current) drug therapy
CPT/HCPCS: 36415; 71010; 71020; 80048; 80053; 80061; 80320; 82550; 82553; 82607; 82746; 83735; 83880; 84484; 85025; 85027; 85610; 85730; 93005; 93306; 94640; 94760; 96365; 96366; 96367; 96368; 96372; 96375; 96376; 99291

== ENCOUNTER 2016-10-12 09:20 | Inpatient (IN) | payer MEDICARE, OTHER ==
[2016-10-12] MEDS ORDERED: SODIUM CHLORIDE 0.9% 1,000 ML IV STA ×2 (09:36)
--- NOTE | 2016-10-12 09:37 | ED ---
General Adult HPI - General Chief complaint: Alcohol Stated complaint: ETOH Time Seen by Provider: 10/12/16 09:27 Source: patient, EMS, RN notes reviewed Mode of arrival: EMS Limitations: altered mental status - History of Present Illness Initial comments: Patient is a 71-year-old male presenting to the emergency Department with alcohol intoxication. Patient states he does drink frequently and did drink today. Patient has no other complaints. Patient denies any injury. - Related Data Home Medications Medication Instructions Recorded Confirmed HYDROcodone/APAP 10-325MG [[place] 1 tab PO Q6H PRN 08/27/13 10/12/16 10-325] Budesonide/Formoterol Fumarate 2 puff INHALATION RT-BID 01/17/16 10/12/16 [Symbicort 160-4.5 Mcg Inhaler] Tamsulosin HCl [Flomax] 0.4 mg PO HS 01/17/16 10/12/16 Albuterol Sulfate [Proair Hfa] 1 - 2 puff INHALATION RT-Q6H PRN 09/14/16 Ipratropium-Albuterol Nebulize 3 ml INHALATION RT-QID 09/26/16 10/12/16 [Duoneb 0.5 mg-3 mg/3 ml Soln] Amiodarone [Cordarone] 400 mg PO BID 10/12/16 10/12/16 Multivitamins, Thera [Multivitamin 1 tab PO DAILY@1200 10/12/16 10/12/16 (formulary)] Previous Rx's Medication Instructions Recorded Pravastatin Sodium [Pravachol] 40 mg PO HS #30 tab 09/20/16 Thiamine [Vitamin B-1] 100 mg PO DAILY tab 09/20/16 Diltiazem Oral [Cardizem*] 90 mg PO TID #90 tab 10/03/16 Furosemide [Lasix] 40 mg PO DAILY #30 tab 10/03/16 Metoprolol Tartrate [Lopressor] 100 mg PO BID #60 tab 10/03/16 Allergies Allergy/AdvReac Type Severity Reaction Status Date / Time cephalexin monohydrate Allergy Rash/Hives Verified 09/26/16 15:47 [From Keflex] Review of Systems ROS Statement: Those systems with pertinent positive or pertinent negative responses have been documented in the HPI. ROS Other: All systems not noted in ROS Statement are negative. Constitutional: Denies: fever Eyes: Denies: eye pain ENT: Denies: ear pain Respiratory: Denies: cough Cardiovascular: Denies: chest pain Endocrine: Denies: fatigue Gastrointestinal: Denies: abdominal pain Genitourinary: Denies: urgency Musculoskeletal: Denies: back pain Skin: Denies: rash Neurological: Denies: weakness Past Medical History Past Medical History: Atrial Fibrillation, Chest Pain / Angina, Heart Failure, COPD, Hyperlipidemia, Hypertension, Pneumonia Additional Past Medical History / Comment(s): AFIB,ETOH, ALCOHOLIC CARDIOMYOPATHY, DT'S, CERVICAL AND LUMBAR SPONDYLOSIS, CARPAL TUNNEL disease. History of Any Multi-Drug Resistant Organisms: None Reported Past Surgical History: Back Surgery, Hernia Repair Additional Past Surgical History / Comment(s): right shoulder, bilateral cataract surgery , UMBILICAL HERNIA KINDNEY STONES REMOVED, HAMMER TOE SX X3, with subsequent amputation of the second great toe on his right foot, pain injections through neurology, colonoscopy Past Anesthesia/Blood Transfusion Reactions: No Reported Reaction Past Psychological History: No Psychological Hx Reported Smoking Status: Current every day smoker Past Alcohol Use History: Daily Past Drug Use History: None Reported - Past Family History Father Family Medical History: Diabetes Mellitus Mother History Unknown: Yes Additional Family Medical History / Comment(s): 2001 General Exam Limitations: altered mental status General appearance: alert, in no apparent distress Head exam: Present: atraumatic Eye exam: Present: normal appearance, PERRL ENT exam: Present: mucous membranes dry Neck exam: Present: normal inspection Respiratory exam: Present: normal lung sounds bilaterally Cardiovascular Exam: Present: tachycardia GI/Abdominal exam: Present: soft. Absent: distended, tenderness Extremities exam: Present: normal inspection Neurological exam: Present: alert Psychiatric exam: Present: normal affect, normal mood, other (Patient was loud and disruptive when he arrived however has now settled down.) Skin exam: Present: normal color Course Vital Signs 10/12/16 10/12/16 10/12/16 09:21 09:54 10:53 Temperature 98.5 F Pulse Rate 146 H 139 H 130 H Respiratory 22 18 18 Rate Blood Pressure 109/79 144/70 107/65 O2 Sat by Pulse 94 L 96 96 Oximetry 10/12/16 10/12/16 10/12/16 11:23 12:31 12:55 Temperature Pulse Rate 120 H 136 H 135 H Respiratory 22 Rate Blood Pressure 111/67 116/83 109/84 O2 Sat by Pulse 95 94 L Oximetry EKG Findings - EKG Comments: EKG Findings:: A. fib with RVR, rate 134. QRS 140. QTc to 92. QTC 436. Left axis. Right bundle branch block. No acute ST change. Medical Decision Making - Medical Decision Making Despite a couple of doses of Cardizem unable to significantly lower heart rate. Heart rate 145. Case discussed in detail with Dr. price, who will admit for Dr. paige - Lab Data Result diagrams: 10/12/16 09:45 10/12/16 09:45 Lab Results 10/12/16 10/12/16 Range/Units 09:45 09:45 WBC 5.6 (3.8-10.6) k/uL RBC 3.34 L (4.30-5.90) m/uL Hgb 10.0 L D (13.0-17.5) gm/dL Hct 32.7 L (39.0-53.0) % MCV 98.0 D (80.0-100.0) fL MCH 30.0 (25.0-35.0) pg MCHC 30.6 L (31.0-37.0) g/dL RDW 15.7 H (11.5-15.5) % Plt Count 403 D (150-450) k/uL Neutrophils % 61 % Lymphocytes % 27 % Monocytes % 6 % Eosinophils % 3 % Basophils % 0 % Neutrophils # 3.5 (1.3-7.7) k/uL Lymphocytes # 1.5 (1.0-4.8) k/uL Monocytes # 0.3 (0-1.0) k/uL Eosinophils # 0.1 (0-0.7) k/uL Basophils # 0.0 (0-0.2) k/uL Hypochromasia Moderate Macrocytosis Slight Sodium 147 H (137-145) mmol/L Potassium 3.3 L (3.5-5.1) mmol/L Chloride 105 (98-107) mmol/L Carbon Dioxide 30 (22-30) mmol/L Anion Gap 12 mmol/L BUN 7 L (9-20) mg/dL Creatinine 0.99 (0.66-1.25) mg/dL Est GFR (MDRD) Af Amer >60 (>60 ml/min/1.73 sqM) Est GFR (MDRD) Non-Af >60 (>60 ml/min/1.73 sqM) Glucose 89 (74-99) mg/dL Calcium 7.2 L (8.4-10.2) mg/dL Magnesium 1.7 (1.6-2.3) mg/dL Total Bilirubin 0.7 (0.2-1.3) mg/dL AST 42 (17-59) U/L ALT 31 (21-72) U/L Alkaline Phosphatase 118 (38-126) U/L Total Protein 5.7 L (6.3-8.2) g/dL Albumin 2.8 L (3.5-5.0) g/dL Serum Alcohol 275 mg/dL Disposition Clinical Impression: Atrial fibrillation with rapid ventricular response, Alcohol intoxication Disposition: ADMITTED IP TO THIS HOSP Referrals: Darrick Georges MD [Primary Care Provider] - 1-2 days
[2016-10-12 10:01] LABS: Basophils % (A) 0 %; CH 30.4; Eosinophils # (A) 0.1 k/uL (0-0.7); Eosinophils % (A) 3 %; HCT 32.7 % (39.0-53.0); HDW 3.38; Hypochromasia Moderate; Luc # (Auto) 0.18; Luc % (Auto) 3; Lymphocytes # (A) 1.5 k/uL (1.0-4.8); Lymphocytes % (A) 27 %; MCHC 30.6 g/dL (31.0-37.0); Macrocytosis Slight; Mean Platelet Volume 7.4; Monocytes # (A) 0.3 k/uL (0-1.0); Monocytes % (A) 6 %; Neutrophils # (A) 3.5 k/uL (1.3-7.7); Neutrophils % (A) 61 %; RBC 3.34 m/uL (4.30-5.90); RDW 15.7 % (11.5-15.5); WBC 5.6 k/uL (3.8-10.6); WBC (Perox) 5.35
[2016-10-12 10:13] LABS: ALT 31 U/L (21-72); AST 42 U/L (17-59); Alkaline Phosphatase 118 U/L (38-126); Anion Gap 12 mmol/L; Blood Urea Nitrogen 7 mg/dL (9-20); Calcium 7.2 mg/dL (8.4-10.2); Carbon Dioxide 30 mmol/L (22-30); Chloride 105 mmol/L (98-107); Glucose 89 mg/dL (74-99); Magnesium 1.7 mg/dL (1.6-2.3); Non-African American GFR(MDRD) >60 (>60 ml/min/1.73 sqM); Potassium 3.3 mmol/L (3.5-5.1); Sodium 147 mmol/L (137-145); Total Bilirubin 0.7 mg/dL (0.2-1.3); Total Protein 5.7 g/dL (6.3-8.2)
[2016-10-12 10:19] LABS: Alcohol 275 mg/dL
[2016-10-12] MEDS ORDERED: SODIUM CHLORIDE 0.9% 500 ML IV STA (10:56)
[2016-10-12] MEDS ORDERED: DILTIAZEM 5 MG/ML 5 ML VIAL IVP STA ×2 (10:56→11:50)
[2016-10-12] MEDS ORDERED: NALOXONE 0.4 MG/ML 1 ML VIAL IV PRN (13:14)
[2016-10-12] MEDS ORDERED: LORazepam 2 MG/ML SYRINGE IV PRN (13:17)
[2016-10-12] MEDS ORDERED: THIAMINE 100 MG/ML 2 ML VIAL IM STA (13:17)
[2016-10-12] MEDS: DILTIAZEM 125 MG in SODIUM CHLORIDE 0.9% 100 ML IV SCH (13:56)
[2016-10-12] MEDS: LORazepam 2 MG/ML SYRINGE IV PRN ×5 (14:37→23:49)
[2016-10-12] MEDS: SODIUM CHLORIDE 0.9% 1,000 ML IV SCH (14:41)
[2016-10-12] MEDS ORDERED: THIAMINE 100 MG TAB PO SCH (17:00)
[2016-10-12] MEDS: THIAMINE 100 MG TAB PO SCH (17:30)
[2016-10-12 22:44] LABS: Anion Gap 10 mmol/L; Blood Urea Nitrogen 8 mg/dL (9-20); Calcium 7.2 mg/dL (8.4-10.2); Carbon Dioxide 30 mmol/L (22-30); Chloride 105 mmol/L (98-107); Glucose 92 mg/dL (74-99); Magnesium 1.6 mg/dL (1.6-2.3); Non-African American GFR(MDRD) >60 (>60 ml/min/1.73 sqM); Potassium 3.4 mmol/L (3.5-5.1); Sodium 145 mmol/L (137-145)
[2016-10-12] MEDS ORDERED: Potassium Replacement Protocol 1 EACH MISC MISCELLANE PRN (23:38)
[2016-10-12] MEDS ORDERED: Magnesium Replacement Protocol 1 EACH MISC MISCELLANE PRN (23:39)
[2016-10-13] MEDS: POTASSIUM CHLORIDE 10 MEQ, LIDOCAINE 2% INJ 10 MG in SODIUM CHLORIDE 0.9% 100 ML IV SCH ×2 (00:26→01:57)
[2016-10-13] MEDS: MAGNESIUM SULFATE-D5W PMX 1 GM in DEXTROSE/WATER 1 100ML.BAG IVPB SCH ×2 (01:05→01:56)
[2016-10-13] MEDS: LORazepam 2 MG/ML SYRINGE IV PRN ×9 (01:05→23:58)
[2016-10-13] MEDS: DILTIAZEM 125 MG in SODIUM CHLORIDE 0.9% 100 ML IV SCH ×2 (05:40→17:39)
[2016-10-13 06:43] LABS: CH 29.8; CHCM 29.8; HCT 31.4 % (39.0-53.0); HDW 3.19; HGB 9.3 gm/dL (13.0-17.5); Hypochromasia Marked; MCH 29.7 pg (25.0-35.0); MCHC 29.7 g/dL (31.0-37.0); MCV 100.1 fL (80.0-100.0); Macrocytosis Slight; Mean Platelet Volume 7.5; RBC 3.14 m/uL (4.30-5.90); RDW 15.7 % (11.5-15.5); WBC 6.6 k/uL (3.8-10.6)
[2016-10-13 07:01] LABS: Anion Gap 6 mmol/L; Blood Urea Nitrogen 9 mg/dL (9-20); Calcium 7.3 mg/dL (8.4-10.2); Carbon Dioxide 32 mmol/L (22-30); Chloride 104 mmol/L (98-107); Glucose 106 mg/dL (74-99); Magnesium 2.2 mg/dL (1.6-2.3); Non-African American GFR(MDRD) >60 (>60 ml/min/1.73 sqM); Potassium 3.7 mmol/L (3.5-5.1); Sodium 142 mmol/L (137-145)
[2016-10-13] MEDS: ENOXAPARIN 40 MG/0.4 ML SYRINGE SQ SCH (08:27)
[2016-10-13] MEDS ORDERED: FUROSEMIDE 10 MG/ML 4 ML VIAL IV STA (10:26)
[2016-10-13] MEDS: AMIODARONE 200 MG TAB PO SCH ×2 (10:29→21:22)
[2016-10-13] MEDS: METOPROLOL TARTRATE 50 MG TAB PO SCH ×2 (10:29→21:22)
[2016-10-13] MEDS: FUROSEMIDE 40 MG TAB PO SCH (10:30)
[2016-10-13] MEDS ORDERED: DIAZEPAM 5 MG TAB PO PRN (10:31)
[2016-10-13] MEDS: DIAZEPAM 5 MG TAB PO SCH ×3 (11:23→21:20)
[2016-10-13] MEDS: MULTIVITAMINS, THERA 1 EACH TAB PO SCH (11:24)
[2016-10-13] MEDS: THIAMINE 100 MG TAB PO SCH ×2 (11:24→17:38)
[2016-10-13] MEDS: IPRATROPIUM-ALBUTEROL 3 ML NEB INHALATION SCH ×3 (11:38→19:27)
[2016-10-13] MEDS ORDERED: MULTIVITAMINS, THERA 1 EACH TAB PO SCH ×2 (12:00)
--- NOTE | 2016-10-13 15:50 | XR ---
EXAMINATION TYPE: XR chest 1V portable DATE OF EXAM: 10/13/2016 COMPARISON: 09/30/2016 INDICATION: Heart failure COPD TECHNIQUE: Single frontal view of the chest is obtained. FINDINGS: The heart size is normal. The pulmonary vasculature is normal. The lungs are clear. Previously base infiltrate is resolved. EKG overlie the chest. IMPRESSION: 1. No acute pulmonary process.
--- NOTE | 2016-10-13 16:10 | CONS ---
DATE OF CONSULTATION: Mr. Hills is a 71-year-old male with a known history of chronic alcoholism, history of persistent atrial fibrillation who presented with alcoholism and was found to be in atrial fibrillation with rapid ventricular response. Patient had multiple admissions most recently was in the hospital a few weeks ago with similar issues. At that time had an echocardiogram revealed a mildly impaired left ventricular systolic function. Unfortunately, he continues to drink alcohol on a daily basis and he was not felt to be a candidate for anticoagulation. He is quite somnolent at this time and he is on IV Cardizem and remains tachycardic. He has a history of chronic obstructive lung disease with chronic tobacco use, and a history of alcoholic liver disease and anemia in the past. I am not able to obtain any significant history from him at this point. His medications at home should include: 1. Thiamine. 2. Flomax. 3. Pravastatin 40 mg daily. 4. Metoprolol tartrate 100 mg twice a day. 5. Lasix 40 mg daily. 6. Diltiazem 90 mg 3 times a day. 7. Amiodarone 20 mg twice a day for rate control. 8. Albuterol. REVIEW OF SYSTEMS: Review of systems could not be obtained at this time but the patient has a history of chronic obstructive lung disease. PHYSICAL EXAMINATION: A 71-year-old male opening his eyes to verbal stimulus, but not talkative. Blood pressure 124/70 with a heart rate in the 130s. HEAD: Normocephalic. EYES: Sclerae anicteric. NECK: No bruit appreciated. LUNGS: With decreased air exchange. HEART: Tachycardic. HEART: Irregularly irregular. S1, S2, no S3, no rub. ABDOMEN: Soft, nontender, positive bowel sounds. No organomegaly. EXTREMITIES: No edema. Lab data revealed BUN and creatinine of 9 and 0.89. Potassium 3.7. Alcohol level of 275. Hemoglobin of 9.3, MCV of 100.1, platelets count 284. IMPRESSION: 1. Alcoholism with depression of neurological status. 2. Persistent chronic atrial fibrillation, not anticoagulated because of gastrointestinal bleeding and alcoholism. 3. History of hypertension. 4. History of chronic obstructive lung disease with chronic tobacco use. RECOMMENDATION: From the cardiac standpoint, I will resume his oral medications. The patient has a history of mild cardiomyopathy, most alcohol induced. At this time, I do not see any reason to do any cardiac work-up. Unfortunately, the prognosis is guarded because of his continued alcoholism. I am not quite sure how compliant the patient is with his medications at home either. Hopefully he can tolerate and take his oral medication on a regular basis, which I believe will help quite a bit in his recurrent admissions.
--- NOTE | 2016-10-13 17:22 | HP ---
DATE OF ADMISSION: 10/12/2016 PRESENTING COMPLAINT: Weak, tired, intoxicated. HISTORY OF PRESENTING COMPLAINT: This is a 71-year-old patient who is recently had a few admissions who continues to drink and smoke at home. Patient's clinical medical conditions include COPD, hyperlipidemia, hypertension, hyponatremia, chronic alcoholism. Patient also has atrial fibrillation. Patient is weak, tired, rundown, continues to drink. Found to be in atrial fibrillation with a rapid ventricular rate. Was started on Cardizem. REVIEW OF SYSTEMS: CONSTITUTIONAL: Weak, tired. HEENT: None. RESPIRATORY: Short of breath, coughing. CARDIOVASCULAR: Racing heart. GASTROINTESTINAL: None. GENITOURINARY: None. MUSCULOSKELETAL: None. DERMATOLOGIC: None. HEMATOLOGIC: None. LYMPHATIC: None. PSYCHIATRY: Anxious. NEUROLOGICAL: None. PAST MEDICAL HISTORY: Atrial fibrillation, cardiomyopathy, COPD, hypertension, hyperlipidemia, alcoholic cardiomyopathy, cervical/lumbar spondylosis, carpal tunnel disease. PAST SURGICAL HISTORY: Back surgery, hernia repair, right shoulder surgery, bilateral cataract surgery, umbilical hernia repair, kidney stones removed, hammertoe x3, amputation of the second toe on the right. SOCIAL HISTORY: The patient lives with his friend, Bekah Arriaga, who lives upstairs and takes care of his house. Patient continues to smoke at least a pack a day and drinks available amount of vodka. FAMILY HISTORY: Diabetes. HOME MEDICATIONS: Thiamine 100 mg a day, Flomax 0.4 mg q.h.s., Pravachol 40 mg q.h.s., multivitamin 1 tablet p.o. daily, Lopressor 100 mg p.o. b.i.d., DuoNeb q.i.d., Harrison 10 - 1 tablet q.6 p.r.n., Lasix 40 mg a day, Cardizem 90 mg p.o. t.i.d., Symbicort 2 puff b.i.d., amiodarone 400 mg b.i.d., albuterol 1 to 2 puffs q.6 p.r.n. ALLERGIES: KEFLEX. PHYSICAL EXAMINATION: Vital signs on presentation: Temperature 98.5, pulse 146, respiration 22, blood pressure 109/79, pulse ox 94% on room air. GENERAL APPEARANCE: Rather unkempt, lying in bed, tired appearing, lethargic. EYES: Pupils equal. Conjunctivae normal. HEENT: External appearance of nose and ears normal. Oral cavity normal. Poor oral hygiene. NECK: JVD unable to assess. Mass not palpable. RESPIRATORY: Effort increased. LUNGS: Decreased breath sounds and scattered crackles. CARDIOVASCULAR: Heart sounds irregular. No edema. ABDOMEN: Soft, nontender. Liver and spleen not palpable. LYMPHATIC: No lymph node palpable in neck or axillae. PSYCHIATRY: Patient answering questions. Seems to dose off. DERMATOLOGICAL: Scratch scott are present. INVESTIGATIONS: White count 5.6, hemoglobin 10, potassium 3.3, BUN 7, creatinine 0.99. ProBNP is 2030. EKG shows atrial flutter with a rapid ventricular rate. ASSESSMENT: 1. Persistent atrial fibrillation with a rapid ventricular rate, present on admission. 2. Patient is not a candidate for anticoagulation because of chronic alcohol use. 3. Acute chronic obstructive pulmonary disease exacerbation in a smoker. 4. Chronic hypoxic respiratory failure from underlying chronic obstructive pulmonary disease. patient is on home oxygen. 5. Macrocytic anemia, nutritional, alcohol use. 6. Hyperlipidemia. 7. Essential hypertension. 8. Chronic alcohol dependence. 9. Hypertensive heart disease with moderate concentric left ventricular hypertrophy. 10. Chronic nicotine dependence. Patient is a smoker. 11. Hypoalbuminemia, probably from protein calorie malnutrition. 12. Possible acute on chronic congestive heart failure from systolic dysfunction, ejection fraction 45. Rule out underlying alcoholic cardiomyopathy. PLAN: Patient's home medications are resumed. Patient is put on DuoNebs. Valium for DVT prophylaxis. He is on Lopressor. Also on Lasix. 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 Overall prognosis guarded.
[2016-10-13] MEDS: SODIUM CHLORIDE 0.9% 1,000 ML IV SCH (17:39)
[2016-10-13] MEDS: BUDESONIDE 1 MG/2 ML NEBU INHALATION SCH (19:27)
[2016-10-13] MEDS ORDERED: SYMBICORT 160-4.5 MCG INHALER INHALATION SCH (20:00)
[2016-10-13] MEDS: PRAVASTATIN SODIUM 40 MG TAB PO SCH (21:22)
[2016-10-13] MEDS: TAMSULOSIN 0.4 MG CAP.ER.24H PO SCH (21:23)
[2016-10-14] MEDS: IPRATROPIUM-ALBUTEROL 3 ML NEB INHALATION SCH ×5 (03:24→19:35)
[2016-10-14 08:20] LABS: Basophils % (A) 0 %; CH 30.3; CHCM 31.1; Eosinophils # (A) 0.1 k/uL (0-0.7); Eosinophils % (A) 3 %; HCT 29.7 % (39.0-53.0); HDW 3.35; HGB 9.3 gm/dL (13.0-17.5); Hypochromasia Moderate; Luc # (Auto) 0.17; Luc % (Auto) 3; Lymphocytes # (A) 1.4 k/uL (1.0-4.8); Lymphocytes % (A) 26 %; MCH 30.6 pg (25.0-35.0); MCHC 31.4 g/dL (31.0-37.0); MCV 97.3 fL (80.0-100.0); Mean Platelet Volume 7.7; Monocytes # (A) 0.3 k/uL (0-1.0); Monocytes % (A) 5 %; Neutrophils # (A) 3.4 k/uL (1.3-7.7); Neutrophils % (A) 63 %; RBC 3.05 m/uL (4.30-5.90); RDW 15.7 % (11.5-15.5); WBC 5.4 k/uL (3.8-10.6); WBC (Perox) 5.39
[2016-10-14] MEDS: ENOXAPARIN 40 MG/0.4 ML SYRINGE SQ SCH (08:24)
[2016-10-14] MEDS: AMIODARONE 200 MG TAB PO SCH ×2 (08:24→21:37)
[2016-10-14] MEDS: DIAZEPAM 5 MG TAB PO SCH ×3 (08:24→21:37)
[2016-10-14] MEDS: LORazepam 2 MG/ML SYRINGE IV PRN ×3 (08:25→15:33)
[2016-10-14] MEDS: METOPROLOL TARTRATE 50 MG TAB PO SCH ×2 (08:25→21:37)
[2016-10-14] MEDS: FUROSEMIDE 40 MG TAB PO SCH (08:25)
[2016-10-14] MEDS: THIAMINE 100 MG TAB PO SCH ×2 (08:26→15:33)
[2016-10-14] MEDS: MULTIVITAMINS, THERA 1 EACH TAB PO SCH (08:26)
[2016-10-14] MEDS: SODIUM CHLORIDE 0.9% 1,000 ML IV SCH (08:26)
[2016-10-14 08:29] LABS: Anion Gap 6 mmol/L; Blood Urea Nitrogen 9 mg/dL (9-20); Calcium 7.4 mg/dL (8.4-10.2); Carbon Dioxide 35 mmol/L (22-30); Chloride 101 mmol/L (98-107); Glucose 109 mg/dL (74-99); Non-African American GFR(MDRD) >60 (>60 ml/min/1.73 sqM); Potassium 3.3 mmol/L (3.5-5.1); Sodium 142 mmol/L (137-145)
[2016-10-14] MEDS: BUDESONIDE 1 MG/2 ML NEBU INHALATION SCH ×2 (08:30→19:35)
[2016-10-14] MEDS ORDERED: THIAMINE 100 MG TAB PO SCH (09:00)
[2016-10-14] MEDS: POTASSIUM CHLORIDE ER 20 MEQ TAB.ER PO SCH ×3 (11:17→15:32)
--- NOTE | 2016-10-14 12:17 | P.PN ---
Subjective Principal diagnosis: A. fib This is a 71-year-old gentleman with known history of chronic alcoholism, history of persistent atrial fibrillation, who presented to the hospital with A. fib with RVR as well as elevated EtOH level. He was here in the hospital a few weeks ago with similar presentation, he had an echo performed at that time which revealed a mildly impaired left ventricular systolic function. His not felt to be a candidate for anticoagulation because of his persistent EtOH abuse. At the time of our examination this morning, patient continues to be somewhat combative. Continues to be in A. fib, heart rate is in the 80s. Potassium this morning 3.3 which has been replaced. Objective - Vital Signs Vital signs: Vital Signs Temp 98.0 F 10/14/16 08:00 Pulse 80 10/14/16 08:45 Resp 26 H 10/14/16 08:00 BP 118/56 10/14/16 08:00 Pulse Ox 93 L 10/14/16 08:00 Intake & Output 10/13/16 10/14/16 10/14/16 18:59 06:59 18:59 Intake Total 569.875 400 237 Output Total 450 800 Balance 119.875 -400 237 Weight 67.5 kg Intake: Intake, IV Titration 89.875 160 Amount Diltiazem 125 mg In 89.875 Sodium Chloride 0.9% 100 ml @ 7.5 MG/HR 7.5 mls/hr IV .[id number] Rx#: [id number] Sodium Chloride 0.9% 1, 160 000 ml @ 20 mls/hr IV . Q24H LUKASZ Rx#:[id number] Oral 480 240 237 Output: Urine 450 800 Other: Voiding Method Bedside Commode Bedside Commode Urinal Urinal # Voids 2 2 # Bowel Movements 1 - Exam PHYSICAL EXAMINATION: HEENT: Head is atraumatic, normocephalic. Pupils equal, round. Neck is supple. There is no elevated jugular venous pressure. HEART EXAMINATION: Heart S1 and S2 irregularly irregular CHEST EXAMINATION: Lungs reveal decreased air exchange throughout. ABDOMEN: Soft, nontender. Bowel sounds are heard. No organomegaly noted. EXTREMITIES: 2+ peripheral pulses with no evidence of peripheral edema and no calf tenderness noted. NEUROLOGIC [patient is awake, alert and oriented -1.] . - Labs CBC & Chem 7: 10/14/16 07:55 10/14/16 07:52 Labs: Abnormal Lab Results - Last 24 Hours (Table) 10/14/16 10/14/16 Range/Units 07:52 07:55 RBC 3.05 L (4.30-5.90) m/uL Hgb 9.3 L (13.0-17.5) gm/dL Hct 29.7 L (39.0-53.0) % RDW 15.7 H (11.5-15.5) % Potassium 3.3 L (3.5-5.1) mmol/L Carbon Dioxide 35 H (22-30) mmol/L Glucose 109 H (74-99) mg/dL Calcium 7.4 L (8.4-10.2) mg/dL Assessment and Plan (1) Chronic a-fib Status: Acute (2) Alcohol intoxication Status: Acute (3) COPD exacerbation Status: Acute (4) Diabetes Status: Acute (5) HTN (hypertension) Status: Acute (6) Cardiomyopathy, alcoholic Status: Chronic (7) Nicotine dependence Status: Chronic Plan: From cardiology's perspective, we'll continue the patient on his current medications. He is not felt to be candidate for anticoagulation because of his EtOH use. We'll follow this patient with you now on an as-needed basis only, please don't hesitate to call with any questions. DNP note has been reviewed, I agree with a documented findings and plan of care. Patient was seen and examined.
--- NOTE | 2016-10-14 13:41 | P.CN ---
Psychiatric Consult - . Consult date: 10/14/16 Consult:: 10/14/16 13:36 Patient was yelling, could be heard down the hallway at nurses station. When entering room patient yelled to let him out of bed. When trying to tell patient who and why i was there he responded "I don't care just help me" Patient was uncooperative at best with examination. MSE: He was able to identify his first name, the state, but could not give any other information of location or date, "I don't care" Spoke to ROJELIO Swain, states he thinks this is his baseline. REview of medication, patient has received 4mg of lorazepam since 23:30. Recent CIWA 9. Review of record shows 8 admissions in 12 months, one recent admission his neighbors call ed EMS stating that patient was not taking care of himself. Review of demographics shows a friend but no phone or address, no next of kin or emergency contact. A:Patient known for at least one year of frequent admissions with etoh intoxication, hx of falls and of neighbor calling EMS due to patient's inability to care for self. However he has had medical attention and his primary care physician might be able to provide a baseline of his mental status. Today however the possibility of delirium remains as primary diagnosis, and possibly superimposed on dementia. Delirium R/O Dementia Plan: Continue protecting patient from DT's with the lorazepam based on CIWA scores. Once patient has gone 24 hours w/o benzo, please reconsult. Would ask SW to see if patient's family doctor has any next of kin identified, and if primary care could give up patient's baseline mental status, ie does patient typically know the date, and location. 10/14/16 13:43
--- NOTE | 2016-10-14 20:21 | P.PN ---
Progress Note - Text DATE OF SERVICE: 10/14/2016 PRESENTING COMPLAINT: INTERVAL HISTORY: 71-year-old male with atrial fibrillation rapid ventricular rate. Today patient is sitting up in the bed yelling out periodically that he needs help, he is eating presently and has no trouble doing that. Is aware that he is in the hospital, knows his name, doesn't feel shaky quite the way he did yesterday , is short of breath with minimal exertion. Has a coarse raspy rattle in his chest. Appetite is good, moved his bowels today, ambulatory with some assistance. REVIEW OF SYSTEMS: Done for constitutional ,cardiovascular, GI, pulmonary with relevant findings as above. CURRENT MEDICATIONS DuoNeb, Valium 10 mg 3 times a day, Lovenox, amiodarone 400 mg twice a day, Lasix 40 mg daily, Ativan per [facility] protocol, Lopressor, multivitamin, Pravachol , Flomax. PHYSICAL EXAM VITAL SIGNS: Temperature 98.0 pulse 120 respirations 26 blood pressure 118/56 oxygen saturation 93% on 2 L GENERAL APPEARANCE: Sitting in bed, yelling out for help uncooperative. EYES: Pupils equal. Conjunctiva normal. NECK: JVD raised. Mass not palpable. RESPIRATORY: Respiratory effort increased. Lungs diminished with crackles and rhonchi to auscultation. Coarse cough with sputum production. CARDIOVASCULAR: Irregular rhythm. No edema. ABDOMEN: Soft. Liver and spleen not palpable. No tenderness. No mass palpable. PSYCHIATRY: Alert and oriented x2-3 Mood and affect agitated. INVESTIGATIONS: Hemoglobin 9.3, platelet count 247, potassium 3.3, BUN 9 creatinine 0.81 ASSESSMENT: 1. Persistent atrial fibrillation with rapid ventricular rate, present on admission. 2. Patient is not a candidate for anticoagulation because of chronic alcohol use. 3. Acute chronic obstructive pulmonary disease exacerbation in a smoker. 4. Chronic hypoxic respiratory failure on underlying chronic obstructive pulmonary disease patient on home oxygen. 5. Macrocytic anemia, nutritional, alcohol use. 6. Hyperlipidemia. 7. Essential hypertension. 8. Chronic alcohol dependence. 9. Hypertensive heart disease with moderate concentric left ventricular hypertrophy. 10. Chronic nicotine dependence patient is a smoker. 11. Hypoalbuminemia probably from calorie malnutrition. 12. Possible acute on chronic congestive heart failure from systolic dysfunction ejection fraction 45%. Rule out underlying alcoholic cardiomyopathy. 13. Acute delirium, related to alcohol withdrawal,possibly superimposed on dementia, slow to improve. PLAN: Patient has had multiple readmissions for the above problems. Concerns for overall patient well-being, Case management requested a psych consultation to determine patient's fitness to make decisions for himself. Patient is however in the middle of withdraws from alcohol use. Psychiatry unable to evaluate, diagnosed patient with delirium and will come see the patient once patient is off benzodiazepines for at least 24 hours. PHYSICIAN RELATIONS MANAGER statement: Patient was seen and examined by nurse practitioner Jodi Perez and all elements of the case discussed with attending Dr. Norton
[2016-10-14] MEDS: PRAVASTATIN SODIUM 40 MG TAB PO SCH (21:37)
[2016-10-14] MEDS: TAMSULOSIN 0.4 MG CAP.ER.24H PO SCH (21:37)
[2016-10-15] MEDS: IPRATROPIUM-ALBUTEROL 3 ML NEB INHALATION PRN ×2 (02:42→09:22)
[2016-10-15 06:19] LABS: Basophils % (A) 0 %; CH 30.1; CHCM 30.8; Eosinophils # (A) 0.1 k/uL (0-0.7); Eosinophils % (A) 2 %; HCT 28.5 % (39.0-53.0); HDW 3.29; HGB 8.8 gm/dL (13.0-17.5); Hypochromasia Marked; Luc % (Auto) 4; Lymphocytes # (A) 1.1 k/uL (1.0-4.8); Lymphocytes % (A) 21 %; MCH 30.2 pg (25.0-35.0); MCHC 30.9 g/dL (31.0-37.0); MCV 97.7 fL (80.0-100.0); Macrocytosis Slight; Mean Platelet Volume 7.4; Monocytes # (A) 0.3 k/uL (0-1.0); Monocytes % (A) 6 %; Neutrophils # (A) 3.6 k/uL (1.3-7.7); Neutrophils % (A) 68 %; RBC 2.92 m/uL (4.30-5.90); RDW 15.8 % (11.5-15.5); WBC 5.4 k/uL (3.8-10.6); WBC (Perox) 5.47
[2016-10-15 06:29] LABS: Anion Gap 5 mmol/L; Blood Urea Nitrogen 8 mg/dL (9-20); Calcium 7.3 mg/dL (8.4-10.2); Carbon Dioxide 35 mmol/L (22-30); Chloride 101 mmol/L (98-107); Glucose 89 mg/dL (74-99); Non-African American GFR(MDRD) >60 (>60 ml/min/1.73 sqM); Potassium 3.8 mmol/L (3.5-5.1); Sodium 141 mmol/L (137-145)
[2016-10-15] MEDS: AMIODARONE 200 MG TAB PO SCH ×2 (08:40→22:34)
[2016-10-15] MEDS: ENOXAPARIN 40 MG/0.4 ML SYRINGE SQ SCH (08:41)
[2016-10-15] MEDS: METOPROLOL TARTRATE 50 MG TAB PO SCH ×2 (08:41→22:34)
[2016-10-15] MEDS: FUROSEMIDE 40 MG TAB PO SCH (08:41)
[2016-10-15] MEDS: BUDESONIDE 1 MG/2 ML NEBU INHALATION SCH ×2 (09:20→20:02)
--- NOTE | 2016-10-15 10:26 | PN ---
DATE OF SERVICE: 10/14/2016 ATTENDING NOTE: This patient was seen and examined by me on 10/14/2016. I reviewed the note of my nurse practitioner, Ms. Perez. Discussed reviewed additional findings below. This is a patient who is an alcoholic presented with COPD exacerbation, A. fib with rapid ventricular rate. Heart rate is still up there. The patient is tolerating his diet. Far more awake. ON EXAMINATION: LUNGS: Decreased breath sounds. CARDIOVASCULAR: Heart sounds irregular. PSYCH: Answering questions. INVESTIGATIONS: Telemetry noted. Hemoglobin 9.3. Potassium 3.3. ASSESSMENT: 1. Persistent atrial fibrillation with a rapid ventricular rate. Note that patient is also on DuoNeb and patient is not a candidate for anticoagulation because of chronic alcohol. 2. Chronic obstructive pulmonary disease exacerbation 3. Acute delirium from alcohol withdrawal, was actually improving. PLAN: At this point, will stop patient's Ativan. Will also cut back on the Valium to 5 mg 3 times a day. Will also decrease the DuoNeb to 3 times a day to see if that helps the heart rate. Patient continues to drink home and continues to get readmitted. We may need to consider guardianship.
[2016-10-15] MEDS: IPRATROPIUM-ALBUTEROL 3 ML NEB INHALATION SCH ×3 (11:06→20:02)
[2016-10-15] MEDS: DIAZEPAM 5 MG TAB PO SCH ×3 (11:22→22:36)
[2016-10-15] MEDS: MULTIVITAMINS, THERA 1 EACH TAB PO SCH (12:49)
[2016-10-15] MEDS: THIAMINE 100 MG TAB PO SCH ×2 (12:49→17:50)
--- NOTE | 2016-10-15 16:16 | CDI ---
In responding to this query, please exercise your independent professional judgment. The [facility] Coding Staff and Clinical Documentation Specialists appreciate your assistance in clarifying documentation, maintaining compliance with coding guidelines, accurately documenting patients condition and capturing severity of illness. The fact that a question is asked does not imply that any particular answer is desired or expected. Communication forms are a method of clarifying documentation and are not made part of the Legal Health Record. Thank you in advance for your clarification. Last Revision, February 2015 Soto Posey [address] [facility] [address] Documentation Clarification Form Date: 10/15/2016 3:55:00 PM From: Angie Crowell Admit Date: 10/12/2016 1:49:00 PM Patient Name: Juan Carlos Hills Visit Number: [id number] Discharge Date: Dr. Martin Norton Protein calorie malnutrition has been documented in H&P and progress note. History/Risk Factors: Chronic Alcoholism, Persistent atrial fibrillation, COPD, Current everyday smoker Clinical Indicators: Patient is weak, tired, unkempt, intoxicated. He was found to be in atrial fibrillation with RVR. Labs: Albumin 2.8 Total Protein 5.7 Current BMI: 20.6 Treatment: Heart Healthy Diet Daily weight, Intake/Output Lab monitoring: In your professional opinion, can you please clarify if these findings signify one of the following conditions? Mild Protein Malnutrition Mild Protein-Calorie Malnutrition Moderate Protein Malnutrition Moderate Protein-Calorie Malnutrition Severe Protein Malnutrition Severe Protein-Calorie Malnutrition Other condition, please specify Unable to determine Please document in your progress notes and discharge summary in order to capture severity of illness and risk of mortality. Include clinical findings that support your diagnosis. FYI: Press F11 to launch patient chart. Place X here if this finding has no clinical significance, is not applicable or if you are not able to provide any additional documentation. ALONSO
[2016-10-15] MEDS: SODIUM CHLORIDE 0.9% 1,000 ML IV SCH (17:01)
[2016-10-15] MEDS: PRAVASTATIN SODIUM 40 MG TAB PO SCH (22:34)
[2016-10-15] MEDS: TAMSULOSIN 0.4 MG CAP.ER.24H PO SCH (22:34)
[2016-10-16] MEDS: IPRATROPIUM-ALBUTEROL 3 ML NEB INHALATION PRN (04:37)
[2016-10-16] MEDS: IPRATROPIUM-ALBUTEROL 3 ML NEB INHALATION SCH ×3 (07:35→20:08)
[2016-10-16] MEDS: BUDESONIDE 1 MG/2 ML NEBU INHALATION SCH ×2 (07:35→20:08)
[2016-10-16 09:15] LABS: Anisocytosis Slight; Basophils % (A) 0 %; CH 30.2; CHCM 30.7; Eosinophils # (A) 0.1 k/uL (0-0.7); Eosinophils % (A) 1 %; HCT 28.4 % (39.0-53.0); HDW 3.13; HGB 8.6 gm/dL (13.0-17.5); Hypochromasia Marked; Luc # (Auto) 0.14; Luc % (Auto) 3; Lymphocytes % (A) 20 %; MCH 29.9 pg (25.0-35.0); MCHC 30.4 g/dL (31.0-37.0); MCV 98.3 fL (80.0-100.0); Macrocytosis Slight; Mean Platelet Volume 7.7; Monocytes # (A) 0.3 k/uL (0-1.0); Monocytes % (A) 7 %; Neutrophils # (A) 3.4 k/uL (1.3-7.7); Neutrophils % (A) 69 %; RBC 2.89 m/uL (4.30-5.90); RDW 16.3 % (11.5-15.5); WBC 4.9 k/uL (3.8-10.6); WBC (Perox) 4.64
[2016-10-16 09:25] LABS: Anion Gap 7 mmol/L; Blood Urea Nitrogen 10 mg/dL (9-20); Calcium 7.1 mg/dL (8.4-10.2); Carbon Dioxide 34 mmol/L (22-30); Chloride 97 mmol/L (98-107); Glucose 146 mg/dL (74-99); Non-African American GFR(MDRD) >60 (>60 ml/min/1.73 sqM); Potassium 3.2 mmol/L (3.5-5.1); Sodium 138 mmol/L (137-145)
[2016-10-16] MEDS: AMIODARONE 200 MG TAB PO SCH ×2 (10:02→21:25)
[2016-10-16] MEDS: METOPROLOL TARTRATE 50 MG TAB PO SCH ×2 (10:02→21:25)
[2016-10-16] MEDS: FUROSEMIDE 40 MG TAB PO SCH (10:02)
[2016-10-16] MEDS: ENOXAPARIN 40 MG/0.4 ML SYRINGE SQ SCH (10:03)
[2016-10-16] MEDS: DIAZEPAM 5 MG TAB PO SCH ×3 (10:03→21:26)
[2016-10-16] MEDS: THIAMINE 100 MG TAB PO SCH ×2 (12:41→16:43)
[2016-10-16] MEDS: MULTIVITAMINS, THERA 1 EACH TAB PO SCH (12:41)
--- NOTE | 2016-10-16 16:09 | PN ---
DATE OF SERVICE: 10/15/2016 PRESENTING COMPLAINT: Tired. INTERVAL HISTORY: This is a patient who is an alcoholic. He has atrial fibrillation with rapid ventricular rate. Patient's heart rate is a bit on the upper side. Tired. Patient's Valium dose has been scaled back that was being used for DTs. Patient is tired, lying in bed. Did tolerate some diet. Patient does get about with some assistance. Review of systems done for constitutional, cardiovascular, GI, pulmonary, respiratory; relevant findings as above. Current medications are reviewed. The dose of Valium has been cut back. On examination, temperature 96.9, pulse 122, respiration 18, blood pressure 120/75, pulse ox 92% on 2 L. GENERAL APPEARANCE: Lying in bed. Tired-appearing. EYES: Pupils equal. Conjunctivae normal. NECK: JVD not raised. Mass not palpable. RESPIRATORY: Effort increased. LUNGS: Decreased breath sounds. Mild wheezing and some expiratory crackles. CARDIOVASCULAR: Heart sounds irregular. No edema. ABDOMEN: Soft, nontender. Liver and spleen not palpable. PSYCHIATRY: Awake. Answering questions. INVESTIGATIONS: White count 5.4, hemoglobin 8.8. Potassium 3.8. ASSESSMENT: 1. Persistent atrial fibrillation with rapid ventricular rate. Patient is not a candidate for anticoagulation because of chronic alcohol use. 2. Acute chronic obstructive pulmonary disease exacerbation in a smoker. 3. Chronic hypoxic respiratory failure from underlying chronic obstructive pulmonary disease, on home oxygen. 4. Macrocytic anemia, nutritional and alcohol use. 5. Hyperlipidemia. 6. Essential hypertension. 7. Chronic alcohol dependence. 8. Hypertensive heart disease with moderate concentric left ventricular hypertrophy. 9. Chronic nicotine dependence. Patient is a smoker. 10. Hypoalbuminemia from moderate protein-calorie malnutrition. 11. Acute on chronic congestive heart failure exacerbation from systolic dysfunction; ejection fraction 45%, from underlying alcoholic cardiomyopathy, improved. 12. Acute delirium from alcohol withdrawal, improved. 13. Early dementia. PLAN: Continue current medication and treatment plan. Patient's DuoNeb was cut back to 3 times a day. Patient is on amiodarone. Valium dose was cut back to 2.5 three times a day. Patient is on Lopressor 100 mg b.i.d. 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
[2016-10-16] MEDS: SODIUM CHLORIDE 0.9% 1,000 ML IV SCH (16:42)
[2016-10-16] MEDS: TAMSULOSIN 0.4 MG CAP.ER.24H PO SCH (21:25)
[2016-10-16] MEDS: POTASSIUM CHLORIDE ER 20 MEQ TAB.ER PO SCH ×2 (21:25→23:41)
[2016-10-16] MEDS: PRAVASTATIN SODIUM 40 MG TAB PO SCH (21:25)
[2016-10-17] MEDS: IPRATROPIUM-ALBUTEROL 3 ML NEB INHALATION PRN (02:37)
[2016-10-17 06:52] LABS: Anisocytosis Slight; Basophils % (A) 0 %; CH 29.8; CHCM 30.7; Eosinophils # (A) 0.1 k/uL (0-0.7); Eosinophils % (A) 1 %; HCT 28.3 % (39.0-53.0); HDW 3.21; HGB 9.1 gm/dL (13.0-17.5); Hypochromasia Marked; Luc # (Auto) 0.29; Luc % (Auto) 5; Lymphocytes # (A) 1.3 k/uL (1.0-4.8); Lymphocytes % (A) 20 %; MCH 31.2 pg (25.0-35.0); MCHC 32.1 g/dL (31.0-37.0); MCV 96.9 fL (80.0-100.0); Macrocytosis Slight; Mean Platelet Volume 7.7; Monocytes # (A) 0.5 k/uL (0-1.0); Monocytes % (A) 7 %; Neutrophils # (A) 4.3 k/uL (1.3-7.7); Neutrophils % (A) 68 %; RBC 2.92 m/uL (4.30-5.90); WBC 6.4 k/uL (3.8-10.6); WBC (Perox) 6.43
[2016-10-17 07:01] LABS: Anion Gap 4 mmol/L; Blood Urea Nitrogen 11 mg/dL (9-20); Calcium 7.7 mg/dL (8.4-10.2); Carbon Dioxide 37 mmol/L (22-30); Chloride 96 mmol/L (98-107); Glucose 94 mg/dL (74-99); Non-African American GFR(MDRD) >60 (>60 ml/min/1.73 sqM); Potassium 3.7 mmol/L (3.5-5.1); Sodium 137 mmol/L (137-145)
--- NOTE | 2016-10-17 07:59 | PN ---
DATE OF SERVICE: 10/16/2016 This 71-year-old gentleman who was admitted with persistent atrial fibrillation with rapid ventricular rate is not a candidate for anticoagulation. The patient had a history of significant EtOH abuse. The patient is being closely monitored at this time. The patient's hemoglobin is 8.6, sodium is 138, potassium 3.2, calcium 7.1. The patient also is being followed by Cardiology as well. The patient has history of alcohol intoxication as well as history of cardiomyopathy. PAST MEDICAL HISTORY: Reviewed. REVIEW OF SYSTEMS: CARDIOVASCULAR: As mentioned earlier. RESPIRATORY: As mentioned earlier. GI: As mentioned earlier. : No dysuria. NERVOUS SYSTEM: No numbness or weakness. CURRENT MEDICATIONS: 1. DuoNeb q.i.d. and p.r.n. 2. Cordarone 400 mg daily. 3. Pulmicort 1 mg b.i.d. 4. Valium 2.5 mg t.i.d. 5. Lovenox 40 mg p.o. daily. 6. Lasix 40 mg p.o. daily. 7. Lopressor 100 mg p.o. b.i.d. 8. Multivitamin 1 p.o. daily. 9. Narcan 0.2 p.r.n. 10. Pravachol. 11. Flomax 0.4. 12. Vitamin B100 mg p.o. b.i.d. PHYSICAL EXAMINATION: The patient is alert and oriented x3. Pulse is 109, blood pressure 105/60, respiration 18, temperature 96.9, pulse ox 99% on 2-L. HEENT: Conjunctivae normal. Oral mucosa moist. NECK: No jugular venous distention. CARDIOVASCULAR: S1 and S2. RESPIRATORY: Breath sounds diminished at the bases. Bilateral scattered rhonchi and crackles. ABDOMEN: Soft, nontender. LEGS: No edema. NERVOUS SYSTEM: Higher function as mentioned. Moves all four limbs. No focal motor deficits. LYMPHATIC: No lymphadenopathy in the neck, axillae or groin. SKIN: No ulcer, rash or bleeding. LABS: WBC 4, hemoglobin 8.3, sodium 130, potassium 3.2. ASSESSMENT: 1. Atrial fibrillation persistent with rapid ventricular rate present on admission. Patient is not a candidate for anticoagulation because of chronic alcohol abuse. 2. History of EtOH. 3. Chronic obstructive pulmonary disease, acute exacerbation. 4. Chronic hypoxic respiratory failure on home oxygen nasal cannula from chronic obstructive pulmonary disease. 5. Macrocytic anemia, nutritional and alcohol abuse. 6. Hyperlipidemia. 7. Essential hypertension. 8. Chronic alcohol dependence. 9. Hypertensive heart disease with moderate concentric left ventricular hypertrophy. 10. History of chronic nicotine dependence. 11. Hypoalbuminemia with mild to moderate protein calorie malnutrition. 12. Congestive heart failure acute exacerbation with acute on chronic systolic dysfunction, ejection fraction 45% from possibly alcoholic cardiomyopathy. 13. Acute delirium from alcohol withdrawal and delirium tremens. 14. 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 15. FULL CODE. 16. Gait dysfunction. RECOMMENDATIONS AND DISCUSSION: This 71-year-old gentleman who presented with multiple complex medical issues, will monitor the patient closely. Continue the current medications, continue with other medications. Continue with beta blockers. Otherwise, I would recommend continue the PT, OT evaluation. Repeat labs and continue to monitor. Social workers to evaluate for the home situation. Overall prognosis guarded. Further recommendations to follow.
[2016-10-17] MEDS: IPRATROPIUM-ALBUTEROL 3 ML NEB INHALATION SCH ×3 (08:13→20:39)
[2016-10-17] MEDS: BUDESONIDE 1 MG/2 ML NEBU INHALATION SCH ×2 (08:13→20:39)
[2016-10-17] MEDS: DIAZEPAM 5 MG TAB PO SCH ×3 (08:45→21:12)
[2016-10-17] MEDS: FUROSEMIDE 40 MG TAB PO SCH (08:46)
[2016-10-17] MEDS: METOPROLOL TARTRATE 50 MG TAB PO SCH ×2 (08:46→21:12)
[2016-10-17] MEDS: AMIODARONE 200 MG TAB PO SCH ×2 (08:47→21:11)
[2016-10-17] MEDS: ENOXAPARIN 40 MG/0.4 ML SYRINGE SQ SCH (08:47)
[2016-10-17 10:09] VITALS: RESP 18
[2016-10-17] MEDS: THIAMINE 100 MG TAB PO SCH ×2 (11:53→17:10)
[2016-10-17] MEDS: MULTIVITAMINS, THERA 1 EACH TAB PO SCH (11:53)
[2016-10-17] MEDS: SODIUM CHLORIDE 0.9% 1,000 ML IV SCH (13:39)
--- NOTE | 2016-10-17 14:40 | P.CN ---
Psychiatric Consult - . Consult date: 10/17/16 Consult:: 10/17/16 14:21 DATE OF SERVICE: 10/17/2016 IDENTIFYING DATA: This patient is a 71-year-old male admitted to medicine with atrial fibrillation, and alcohol intoxication. Consulted last week but patient at that time appeared to be delirious possibly due to alcohol withdrawal.. HISTORY OF PRESENT ILLNESS: The patient presents with with history of alcohol use, with recent hospitalizations (8 admissions in the last 12 months) for a variety of medical reasons but usually under the influence. Today patient is awake and alert, a bit cantankerous but for the most part cooperative. Patient reports that he's been drinking for 53 years, will typically drink a fifth of vodka per day. Says he lives alone, was once, "I got rid of her in 1963". Says he has one child from that marriage but no contact with daughter. Patient denies feeling depressed, denies suicidal ideation. Patient denies any past history of ever being admitted to a psychiatric unit, denies past history of suicide attempts. Denies past history of ever being treated in outpatient for psychiatric illness. Patient denies any problems other than medical illnesses. PAST PSYCHIATRIC HISTORY: Patient denies. PAST MEDICAL HISTORY: The reader is directed towards the problem list.. ALLERGIES: Per record. CHEMICAL DEPENDENCY HISTORY: Patient reports he's been drinking since the age of 18. Denies any problems related to it. He is drinking approximately a fifth a day, with no intention of stopping. No other drugs of abuse. FAMILY PSYCHIATRIC HISTORY: Denies. FAMILY CHEMICAL DEPENDENCY HISTORY: Denies. LEGAL HISTORY: Denies. SOCIAL HISTORY: Patient states that he lives alone but there is a lady who lives upstairs who apparently does shopping for him, laundry, and other chores. He says he gets Meals on Wheels. Says he has no contact with family members, his daughter, not sure if his 2 brothers still alive. MENTAL STATUS EXAM: Patient alert and oriented 3, fair eye contact, long hair and watters, ungroomed in hospital attire. Speech low volume, rate and production. Coherent, logical and goal directed thought process. No KILO, no FOI. [No TB/TW/ TI] Denied auditory and visual hallucinations. Denied paranoid ideation, delusions or IOR. Memory [grossly intact] Cognition average Recalled 3/3 at 0 minutes, [3/3 at 5 minutes]; Serial 7's [unable to complete, spelled world forwards but unable to spell it backwards lack of effort] Mood irritable, affect strict did, congruent with mood. Denies suicidal ideation, denies homicidal ideation. Insight none; Judgment grossly intact but shows bad choices Alcohol use disorder, severe (alcohol dependence) . IMPRESSIONS: 71-year-old gentleman with 8 admissions in the last year for a variety of medical reasons but in most of those admissions he had alcohol in his system. One admission was when neighbors called authorities because he was unable to take care of himself. When initially seen he was not oriented to place or date. Today he was oriented 3 although he was able to read the date off of his blackboard, but the fact that he knew to look there and read it suggests that he is not delirious. He gives no history of having psychiatric illness, no history of admission to psychiatric units, no history of suicide attempts. No family history of psychiatric illness nor of substance abuse. He appears to have no contact with family members, could not assess for friends, although there is a woman who is living in his house who may function in some capacity to take care of ADLs. Patient was able to recall 3 out of 3 items at 0 minutes and at 5 minutes. This suggests that there is not a clear evidence of dementia, but in order to determine that he would need neuropsychological testing. More than likely the patient does have some mild cognitive disorder, he clearly shows poor judgment in the sense that he continues to drink so heavily. He is not suicidal. He does not have any psychiatric illness, other than alcohol use disorder severe, but is not interested in stopping, or treatment for. PLAN: No clinical indication for inpatient admission, or outpatient follow-up. Abstain from ETOH. Agree with with obtaining guardianship. Please reconsult if any problems occur.. 10/17/16 14:38
[2016-10-17] MEDS: TAMSULOSIN 0.4 MG CAP.ER.24H PO SCH (21:11)
[2016-10-17] MEDS: PRAVASTATIN SODIUM 40 MG TAB PO SCH (21:11)
[2016-10-18 06:47] LABS: Anisocytosis Slight; Basophils % (A) 0 %; CHCM 30.9; Eosinophils % (A) 1 %; HCT 30.3 % (39.0-53.0); HDW 3.16; HGB 9.3 gm/dL (13.0-17.5); Hypochromasia Marked; Luc # (Auto) 0.32; Luc % (Auto) 4; Lymphocytes # (A) 1.3 k/uL (1.0-4.8); Lymphocytes % (A) 15 %; MCH 29.7 pg (25.0-35.0); MCHC 30.6 g/dL (31.0-37.0); MCV 97.1 fL (80.0-100.0); Macrocytosis Slight; Mean Platelet Volume 7.5; Monocytes # (A) 0.8 k/uL (0-1.0); Monocytes % (A) 10 %; Neutrophils # (A) 6.1 k/uL (1.3-7.7); Neutrophils % (A) 71 %; RBC 3.13 m/uL (4.30-5.90); RDW 16.1 % (11.5-15.5); WBC 8.5 k/uL (3.8-10.6); WBC (Perox) 8.96
[2016-10-18 07:05] LABS: Anion Gap 5 mmol/L; Blood Urea Nitrogen 13 mg/dL (9-20); Calcium 7.6 mg/dL (8.4-10.2); Carbon Dioxide 34 mmol/L (22-30); Chloride 96 mmol/L (98-107); Glucose 96 mg/dL (74-99); Non-African American GFR(MDRD) >60 (>60 ml/min/1.73 sqM); Potassium 3.6 mmol/L (3.5-5.1); Sodium 135 mmol/L (137-145)
[2016-10-18] MEDS: IPRATROPIUM-ALBUTEROL 3 ML NEB INHALATION SCH ×2 (07:24→13:50)
[2016-10-18] MEDS: BUDESONIDE 1 MG/2 ML NEBU INHALATION SCH (07:24)
--- NOTE | 2016-10-18 09:10 | PN ---
DATE OF SERVICE: 10/17/2016 This 71-year-old gentleman who was admitted with persistent atrial fibrillation also had significant also. The patient's hemoglobin is also low comparatively. The patient also getting a legal guardian at this time. 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 The patient is mildly confused. PAST MEDICAL HISTORY: Reviewed. REVIEW OF SYSTEMS: CARDIOVASCULAR: As mentioned earlier. RESPIRATORY: As mentioned earlier. GI: No nausea. : No dysuria. Nervous system: No numbness, weakness. Current medications are reviewed and include: 1. Duoneb q.i.d. and p.r.n. 2. Cordarone 400 mg p.o. b.i.d. 3. Pulmicort 1 mg b.i.d. 4. Valium 2.5 mg t.i.d. 5. Lovenox 40 mg subcu daily. 6. Lasix 40 mg. 7. Lopressor 100 mg p.o. b.i.d. 8. Multivitamins one p.o. daily. 9. Narcan 0.2 q.2 p.r.n. 10. Pravachol 40 mg daily. 11. Flomax 0.4. 12. Thiamin 100 mg p.o. b.i.d. PHYSICAL EXAMINATION: The patient is alert and oriented times three. Pulse is 127, blood pressure 111/52, respiratory rate 18, temperature normal. Pulse ox 93% on 3 L. HEENT: Conjunctivae normal. Oral mucosa moist. NECK: No jugular venous distention. No carotid bruit. No lymph node enlargement. CARDIOVASCULAR: S1, S2 muffled. RESPIRATORY: Breath sounds diminished at the bases. Bilateral scattered rhonchi and crackles. ABDOMEN: Soft. Nontender. LEGS: No edema. No swelling. Labs at this time shows WBC 6.5, hemoglobin 9.1. ASSESSMENT: 1. Atrial fibrillation with persistent rapid ventricular rate present on admission. The patient is not a candidate for anticoagulation because of chronic ETOH abuse. 2. Change in mental status, metabolic encephalopathy acute and chronic secondary to alcohol. 3. History of ETOH. 4. Chronic obstructive pulmonary disease, acute exacerbation. 5. Chronic hypoxic respiratory failure, on home O2 nasal cannula because of chronic obstructive pulmonary disease. 6. Macrocytic anemia and nutritional and alcohol abuse. 7. Hyperlipidemia. 8. Hypertension. 9. Chronic alcohol dependence. 10. Hypertensive heart disease. 11. Moderate concentric left ventricular hypertrophy. 12. History of chronic nicotine dependence. 13. Hypoalbuminemia with mild to moderate protein calorie malnutrition. 14. 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 15. Acute delirium with alcohol withdrawal and acute delirium tremens. 16. 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 17. FULL CODE. RECOMMENDATIONS AND DISCUSSION: Recommend to continue current medications, continue symptomatic treatment. Continue beta blockers. Continue the rest of the medications. Follow up with cardiology. We also discussed with the legal guardian regarding the discharge disposition. Prognosis guarded. Repeat labs will be ordered. Alcohol rehab suggested. Use Ativan . Further recommendations to follow. MTDD
[2016-10-18] MEDS: THIAMINE 100 MG TAB PO SCH (09:31)
[2016-10-18] MEDS: FUROSEMIDE 40 MG TAB PO SCH (09:32)
[2016-10-18] MEDS: METOPROLOL TARTRATE 50 MG TAB PO SCH (09:32)
[2016-10-18] MEDS: MULTIVITAMINS, THERA 1 EACH TAB PO SCH (09:32)
[2016-10-18] MEDS: AMIODARONE 200 MG TAB PO SCH (09:32)
[2016-10-18] MEDS: ENOXAPARIN 40 MG/0.4 ML SYRINGE SQ SCH (09:32)
[2016-10-18] MEDS: DIAZEPAM 5 MG TAB PO SCH (09:35)
[2016-10-18 10:06] VITALS: BMI 21.9
[2016-10-18 12:36] VITALS: BP 95/67; TEMP 98.8
[2016-10-18 14:01] VITALS: PULSE 102
--- NOTE | 2016-10-18 20:51 | DS ---
DATE OF ADMISSION: 10/12/2016 DATE OF DISCHARGE: 10/18/2016 FINAL DIAGNOSES: 1. Atrial fibrillation with a persistent rapid ventricular rate present on admission. 2. Patient is not a candidate for anticoagulation because of chronic EtOH abuse. 3. Change in mental status, metabolic encephalopathy, acute on chronic, secondary to alcohol. 4. History of EtOH. 5. Chronic obstructive pulmonary disease, acute exacerbation. 6. Chronic hypoxic respiratory failure on home O2 nasal cannula because of chronic obstructive pulmonary disease. 7. Microcytic anemia, nutritional anemia secondary to alcohol abuse also. 8. Hyperlipidemia. 9. Hypertension, essential. 10. Chronic alcohol dependence. 11. Hypertensive heart disease, moderate concentric left ventricular hypertrophy. 12. History of chronic nicotine dependence. 13. Hypoalbuminemia with mild to moderate protein calorie malnutrition. 14. Congestive heart failure, acute exacerbation, acute on chronic systolic dysfunction, ejection fraction 45% with alcoholic cardiomyopathy. 15. Acute delirium with alcohol withdrawal and acute delirium tremens. 16. 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 17. FULL CODE. DISCHARGE DISPOSITION: The patient will be discharged in stable condition with guarded prognosis. HISTORY OF PRESENT ILLNESS: This 71-year-old gentleman who was admitted with atrial fibrillation also had change in mental status. Patient had multiple other problems including alcohol also treated in conjunction with Cardiology. Psych also saw the patient. The patient has legal guardian. Care was coordinated. The patient improved significantly. Currently the patient will be discharged with the following advice and medications: 1. Diet is cardiac. 2. Activity as tolerated. 3. Follow-up with Dr. Georges in 2 to 3 days. 4. Medications will be as follows: Albuterol 1 to 2 puffs q.6 p.r.n. 5. Cordarone 400 mg p.o. b.i.d. 6. Symbicort 2 puffs b.i.d. 7. Lasix 40 mg p.o. daily. 8. [place] 10 mg q.6 p.r.n. 9. Albuterol Atrovent updrafts q.i.d. and p.r.n. 10. Lopressor 100 mg p.o. b.i.d. 11. Multivitamin 1 p.o. daily. 12. Pravachol 40 mg q.h.s. 13. Flomax 0.5 q.6. 14. Vitamin B, thiamine 100 mg p.o. daily. 15. Ativan 1 mg p.o. t.i.d. p.r.n.
== END 2016-10-18 15:13 | disposition home or self-care (01) | DRG 308 ==
LOC: EC 09:20 → EEVIPCON 13:49 → 6SEL 13:49
PROVIDERS: ADMIT Hospitalist; ATTEND Hospitalist
PROC: HZ2ZZZZ Detoxification Services for Substance Abuse Treatment (ICD-10-PCS; principal; 2016-10-12)
DX: I48.1 Persistent atrial fibrillation (principal); G93.41 Metabolic encephalopathy; I50.23 Acute on chronic systolic (congestive) heart failure; F10.231 Alcohol dependence with withdrawal delirium; J96.11 Chronic respiratory failure with hypoxia; E44.0 Moderate protein-calorie malnutrition; K70.9 Alcoholic liver disease, unspecified; F10.27 Alcohol dependence with alcohol-induced persisting dementia; J44.1 Chronic obstructive pulmonary disease with (acute) exacerbation; E87.1 Hypo-osmolality and hyponatremia; I42.6 Alcoholic cardiomyopathy; I48.2 Chronic atrial fibrillation; D53.9 Nutritional anemia, unspecified; E78.5 Hyperlipidemia, unspecified; D50.9 Iron deficiency anemia, unspecified; Z99.81 Dependence on supplemental oxygen; I11.0 Hypertensive heart disease with heart failure; E11.9 Type 2 diabetes mellitus without complications; F17.200 Nicotine dependence, unspecified, uncomplicated; R26.9 Unspecified abnormalities of gait and mobility; E88.09 Other disorders of plasma-protein metabolism, not elsewhere classified; I45.10 Unspecified right bundle-branch block; R53.1 Weakness; F09 Unspecified mental disorder due to known physiological condition; G56.00 Carpal tunnel syndrome, unspecified upper limb; F10.229 Alcohol dependence with intoxication, unspecified; M47.812 Spondylosis without myelopathy or radiculopathy, cervical region; M47.816 Spondylosis without myelopathy or radiculopathy, lumbar region; Z89.421 Acquired absence of other right toe(s); Z87.442 Personal history of urinary calculi; Z98.42 Cataract extraction status, left eye; Z98.41 Cataract extraction status, right eye; Z68.21 Body mass index [BMI] 21.0-21.9, adult; Z83.3 Family history of diabetes mellitus; Z79.51 Long term (current) use of inhaled steroids; Z79.899 Other long term (current) drug therapy; Z87.01 Personal history of pneumonia (recurrent); Z88.1 Allergy status to other antibiotic agents; Z87.19 Personal history of other diseases of the digestive system; Z91.81 History of falling; Z79.891 Long term (current) use of opiate analgesic; Z71.3 Dietary counseling and surveillance; Z71.6 Tobacco abuse counseling; Z71.41 Alcohol abuse counseling and surveillance of alcoholic; Y90.8 Blood alcohol level of 240 mg/100 ml or more
CPT/HCPCS: 36415; 71010; 80048; 80053; 80320; 83735; 83880; 85025; 85027; 93005; 94640; 94760; 96361; 96372; 96374; 96376; 99291

== ENCOUNTER 2016-12-13 09:14 | Inpatient (IN) | payer MEDICARE, OTHER ==
[2016-12-13] MEDS ORDERED: SODIUM CHLORIDE 0.9% 1,000 ML IV STA (09:36)
--- NOTE | 2016-12-13 09:36 | ED ---
Alcohol HPI <Diego Velazquez - Last Filed: 12/13/16 13:00> - General Source: EMS, RN notes reviewed, old records reviewed Mode of arrival: EMS Limitations: altered mental status <VinayDarcy - Last Filed: 12/13/16 14:40> - General Chief Complaint: Alcohol Stated Complaint: ETOH Time Seen by Provider: 12/13/16 09:19 - History of Present Illness Initial Comments: This is a 71-year-old male presents emergency Department chief complaint of acute alcohol intoxication and was found on the ground. Patient arrives very combative, and is threatening staff. Patient apparently fell between his toilet in his bathtub, and was calling for help when a neighbor heard it. EMS responded, and found bottles of vodka and beer around the apartment. EMS did talk to a neighbor who normally takes care of him, however she was unable to take care of him today, and so the neighbor [facility] of [place] should bring him to the ER. Patient has no complaints. He reports that he drank a gallon of vodka last night. According to EMS he was remaining sober for the past few months, then he discovered that [employer] can deliver to the house, and neighbor found that he started drinking again. According to EMS he's been off of his medications for the past few weeks. (Darcy Mclean) - Related Data Home Medications Medication Instructions Recorded Confirmed HYDROcodone/APAP 10-325MG [[place] 1 tab PO Q6H PRN 08/27/13 12/13/16 10-325] Budesonide/Formoterol Fumarate 2 puff INHALATION RT-BID 01/17/16 12/13/16 [Symbicort 160-4.5 Mcg Inhaler] Tamsulosin HCl [Flomax] 0.4 mg PO HS 01/17/16 12/13/16 Albuterol Sulfate [Proair Hfa] 2 puff INHALATION RT-Q6H PRN 09/14/16 12/13/16 Amiodarone [Cordarone] 400 mg PO DAILY 10/12/16 12/13/16 Albuterol Nebulized [Ventolin 2.5 mg INHALATION RT-QID PRN 12/13/16 12/13/16 Nebulized] Diphenox-Atrop 2.5-0.025 mg 1 tab PO DAILY PRN 12/13/16 12/13/16 [Lomotil] Ipratropium [place] [Atrovent Hfa] 2 puff INHALATION RT-DAILY 12/13/16 12/13/16 Metoprolol Tartrate [Lopressor] 25 mg PO BID 12/13/16 12/13/16 Pravastatin Sodium [Pravachol] 40 mg PO HS 12/13/16 12/13/16 Rivaroxaban [Xarelto] 20 mg PO DAILY 12/13/16 12/13/16 Allergies Allergy/AdvReac Type Severity Reaction Status Date / Time cephalexin monohydrate Allergy Rash/Hives Verified 09/26/16 15:47 [From Keflex] Review of Systems ROS Other: All systems not noted in ROS Statement are negative. <Diego Velazquez - Last Filed: 12/13/16 13:00> ROS Other: All systems not noted in ROS Statement are negative. <Darcy Mclean - Last Filed: 12/13/16 14:40> ROS Statement: Those systems with pertinent positive or pertinent negative responses have been documented in the HPI. Past Medical History Past Medical History: Atrial Fibrillation, Chest Pain / Angina, Heart Failure, COPD, Hyperlipidemia, Hypertension, Pneumonia Additional Past Medical History / Comment(s): AFIB,ETOH, ALCOHOLIC CARDIOMYOPATHY, DT'S, CERVICAL AND LUMBAR SPONDYLOSIS, CARPAL TUNNEL disease. History of Any Multi-Drug Resistant Organisms: None Reported Past Surgical History: Back Surgery, Hernia Repair Additional Past Surgical History / Comment(s): right shoulder, bilateral cataract surgery , UMBILICAL HERNIA KINDNEY STONES REMOVED, HAMMER TOE SX X3, with subsequent amputation of the second great toe on his right foot, pain injections through neurology, colonoscopy Past Anesthesia/Blood Transfusion Reactions: No Reported Reaction Past Psychological History: No Psychological Hx Reported Smoking Status: Current every day smoker Past Alcohol Use History: Daily Past Drug Use History: None Reported - Past Family History Father Family Medical History: Diabetes Mellitus Mother History Unknown: Yes Additional Family Medical History / Comment(s): 2001 <Darcy Mclean - Last Filed: 12/13/16 14:40> General Exam <Diego Velazquez - Last Filed: 12/13/16 13:00> Limitations: altered mental status General appearance: alert, appears intoxicated Head exam: Present: atraumatic, normocephalic, normal inspection Eye exam: Present: normal appearance, PERRL, EOMI. Absent: scleral icterus, conjunctival injection, periorbital swelling ENT exam: Present: normal exam, mucous membranes moist Neck exam: Present: normal inspection. Absent: tenderness, meningismus, lymphadenopathy Respiratory exam: Present: normal lung sounds bilaterally. Absent: respiratory distress, wheezes, rales, rhonchi, stridor Cardiovascular Exam: Present: regular rate, normal rhythm, normal heart sounds. Absent: systolic murmur, diastolic murmur, rubs, gallop, clicks GI/Abdominal exam: Present: soft, normal bowel sounds. Absent: distended, tenderness, guarding, rebound, rigid Extremities exam: Present: normal inspection, full ROM, normal capillary refill. Absent: tenderness, pedal edema, joint swelling, calf tenderness Back exam: Present: normal inspection Neurological exam: Present: alert, oriented X3, CN II-XII intact Psychiatric exam: Present: normal affect, normal mood Skin exam: Present: warm, dry, intact, normal color. Absent: rash <Darcy Mclean - Last Filed: 12/13/16 14:40> - General Exam Comments Initial Comments: This is a 71-year-old male. Patient appears intoxicated. (Darcy Mclean) Course <Diego Velazquez - Last Filed: 12/13/16 13:00> <Darcy Mclean - Last Filed: 12/13/16 14:40> Vital Signs 12/13/16 12/13/16 09:18 13:59 Temperature 97.2 F L Pulse Rate 72 74 Respiratory 17 17 Rate Blood Pressure 113/55 106/52 O2 Sat by Pulse 95 93 L Oximetry - Reevaluation(s) Reevaluation #1: 12/13/16 10:19 Patient is continuing to be irate and yelling profanities. Patient was given IM Haldol. (Darcy Mclean) Reevaluation #2: 12/13/16 13:00 I did do a [id number] evaluation the patient and did evaluate the findings. Patient is a chronic alcoholic intoxicated. A kerry DTs or considered. Patient will be admitted. I did discuss case with the hospitalist. (Diego Velazquez) Reevaluation #3: 12/13/16 13:22 Reevaluated this time and is out of restraints. He is resting on the side of the bed. Head is discussion that he needs to remain here until he is sober and we will be admitting him. Patient is given a turkey sandwich and understands. ( Darcy Mclean) Procedures <Diego Velazquez - Last Filed: 12/13/16 13:00> - Restraint - Face to Face Restraint Occurrence 1 Patient's Immediate Situation: Endangers self safety, Endangers others' safety, Violent behavior Patient's Reaction to the Intervention: Uncooperative, Angry, Aggressive Patient's Medical & Behavioral Condition: Awake, Alert, Agitated Need to Continue or Terminate Restraint or Seclusion: Continue Face to Face Eval of Restraint Date: 12/13/16 Face to Face Eval of Restraint Time: 09:35 <Darcy Mclean - Last Filed: 12/13/16 14:40> - Restraint - Face to Face Restraint Occurrence 1 Patient's Immediate Situation - Comment: Patient arrives EMS with chief complaint alcohol intoxication. Patient is making verbal threats to be up staff. Patient is severely intoxicated and unable to ambulate without falling. Patient is yelling vulgar comments, and resisting care and swinging at staff. (Darcy Mclean) Patient's Reaction to the Intervention - Comment: Patient is still resisting and very combative, and reports he wants to "get out of here". (Darcy Mclean) Patient's Medical & Behavioral Condition - Comment: Patient is resting on the bed, does not appear to be in any acute medical distress. (Darcy Mclean) Need to Continue or Terminate Restraint/Seclusion - Comment: Reji will be kept in restraints until he comes down, the left is due medical testing starting an IV checking blood work. EKG performed. (Darcy Mclean) Medical Decision Making - Lab Data Result diagrams: 12/13/16 09:42 12/13/16 09:42 <Diego Velazquez - Last Filed: 12/13/16 13:00> - Lab Data Result diagrams: 12/13/16 09:42 12/13/16 09:42 - Radiology Data Radiology results: report reviewed <Darcy Mclean - Last Filed: 12/13/16 14:40> - Medical Decision Making This is a 71-year-old male presents emergency Department chief complaint of acute alcohol intoxication and was found on the ground. Patient arrives very combative, and is threatening staff. Patient apparently fell between his toilet in his bathtub, and was calling for help when a neighbor heard it. EMS responded, and found bottles of vodka and beer around the apartment. EMS did talk to a neighbor who normally takes care of him, however she was unable to take care of him today, and so the neighbor [facility] of [place] should bring him to the ER. Patient has no complaints. Patient was severely combative and agitated , he did have to be put in restraints. Patient was given IM Haldol, 2 of Ativan IV. Patient's serum alcohol is 350, patient will be admitted for alcohol intoxication and be and pending delirium tremens. Patient EKG showed no evidence of A. fib, this is patient's history. CT brain was negative for any acute process, chest x-rays A for any acute process. Patient was informed he will be admitted. Case is discussed with Dr. Velazquez, and he'll be admitted to Dr. Singh. [facility] - Lab Data Lab Results 12/13/16 12/13/16 12/13/16 Range/Units 09:42 09:42 09:42 WBC 5.9 (3.8-10.6) k/uL RBC 4.20 L (4.30-5.90) m/uL Hgb 10.9 L (13.0-17.5) gm/dL Hct 35.4 L (39.0-53.0) % MCV 84.4 D (80.0-100.0) fL MCH 26.0 (25.0-35.0) pg MCHC 30.8 L (31.0-37.0) g/dL RDW 16.9 H (11.5-15.5) % Plt Count 346 (150-450) k/uL Neutrophils % 57 % Lymphocytes % 33 % Monocytes % 3 % Eosinophils % 4 % Basophils % 1 % Neutrophils # 3.3 (1.3-7.7) k/uL Lymphocytes # 1.9 (1.0-4.8) k/uL Monocytes # 0.2 (0-1.0) k/uL Eosinophils # 0.3 (0-0.7) k/uL Basophils # 0.0 (0-0.2) k/uL Hypochromasia Slight Anisocytosis Slight PT (9.0-12.0) sec INR (<1.2) APTT (22.0-30.0) sec Sodium 143 (137-145) mmol/L Potassium 3.4 L (3.5-5.1) mmol/L Chloride 103 (98-107) mmol/L Carbon Dioxide 26 (22-30) mmol/L Anion Gap 14 mmol/L BUN 3 L (9-20) mg/dL Creatinine 1.10 (0.66-1.25) mg/dL Est GFR (MDRD) Af Amer >60 (>60 ml/min/1.73 sqM) Est GFR (MDRD) Non-Af >60 (>60 ml/min/1.73 sqM) Glucose 101 H (74-99) mg/dL Calcium 7.7 L (8.4-10.2) mg/dL Magnesium 1.7 (1.6-2.3) mg/dL Total Bilirubin 0.4 (0.2-1.3) mg/dL AST 41 (17-59) U/L ALT 30 (21-72) U/L Alkaline Phosphatase 117 (38-126) U/L Total Creatine Kinase 114 (55-170) U/L CK-MB (CK-2) 1.2 (0.0-2.4) ng/mL CK-MB (CK-2) Rel Index 1.1 Troponin I <0.012 (0.000-0.034) ng/mL Total Protein 6.1 L (6.3-8.2) g/dL Albumin 3.2 L (3.5-5.0) g/dL Amylase <30 L (30-110) U/L Lipase 57 (23-300) U/L Serum Alcohol 355 mg/dL 12/13/16 Range/Units 09:42 WBC (3.8-10.6) k/uL RBC (4.30-5.90) m/uL Hgb (13.0-17.5) gm/dL Hct (39.0-53.0) % MCV (80.0-100.0) fL MCH (25.0-35.0) pg MCHC (31.0-37.0) g/dL RDW (11.5-15.5) % Plt Count (150-450) k/uL Neutrophils % % Lymphocytes % % Monocytes % % Eosinophils % % Basophils % % Neutrophils # (1.3-7.7) k/uL Lymphocytes # (1.0-4.8) k/uL Monocytes # (0-1.0) k/uL Eosinophils # (0-0.7) k/uL Basophils # (0-0.2) k/uL Hypochromasia Anisocytosis PT 18.6 H (9.0-12.0) sec INR 1.9 H (<1.2) APTT 40.8 H (22.0-30.0) sec Sodium (137-145) mmol/L Potassium (3.5-5.1) mmol/L Chloride (98-107) mmol/L Carbon Dioxide (22-30) mmol/L Anion Gap mmol/L BUN (9-20) mg/dL Creatinine (0.66-1.25) mg/dL Est GFR (MDRD) Af Amer (>60 ml/min/1.73 sqM) Est GFR (MDRD) Non-Af (>60 ml/min/1.73 sqM) Glucose (74-99) mg/dL Calcium (8.4-10.2) mg/dL Magnesium (1.6-2.3) mg/dL Total Bilirubin (0.2-1.3) mg/dL AST (17-59) U/L ALT (21-72) U/L Alkaline Phosphatase (38-126) U/L Total Creatine Kinase (55-170) U/L CK-MB (CK-2) (0.0-2.4) ng/mL CK-MB (CK-2) Rel Index Troponin I (0.000-0.034) ng/mL Total Protein (6.3-8.2) g/dL Albumin (3.5-5.0) g/dL Amylase (30-110) U/L Lipase (23-300) U/L Serum Alcohol mg/dL 12/13/16 12:55 EKG shows normal sinus rhythm, left axis deviation. Pulmonary disease pattern. Nonspecific T wave [place]. Ventricular rate 75 bpm. NE interval 180 ms. QS duration 100 ms. QT QTc is 450/511 ms. (Darcy Mclean) - Radiology Data Chest x-ray is negative for any acute process. No acute intracranial hemorrhage, mass effect or midline shift seen. 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 ( Darcy Mclean) Disposition <Diego Velazquez - Last Filed: 12/13/16 13:00> Time of Disposition: 12:59 <Darcy Mclean - Last Filed: 12/13/16 14:40> Clinical Impression: Alcohol abuse, Anemia Disposition: ADMITTED IP TO THIS HOSP Condition: Stable
[2016-12-13] MEDS ORDERED: SODIUM CHLORIDE 0.9% 1,000 ML with MVI, ADULT NO.4 WITH VIT K 10 ML, THIAMINE 100 MG, F... IV ONE ×4 (09:38)
[2016-12-13 10:03] LABS: Anisocytosis Slight; Basophils % (A) 1 %; CH 26.9; CHCM 31.9; Eosinophils # (A) 0.3 k/uL (0-0.7); Eosinophils % (A) 4 %; HCT 35.4 % (39.0-53.0); HDW 2.77; HGB 10.9 gm/dL (13.0-17.5); Hypochromasia Slight; Luc # (Auto) 0.13; Luc % (Auto) 2; Lymphocytes # (A) 1.9 k/uL (1.0-4.8); Lymphocytes % (A) 33 %; MCHC 30.8 g/dL (31.0-37.0); Mean Platelet Volume 7.4; Monocytes # (A) 0.2 k/uL (0-1.0); Monocytes % (A) 3 %; Neutrophils # (A) 3.3 k/uL (1.3-7.7); Neutrophils % (A) 57 %; RDW 16.9 % (11.5-15.5); WBC 5.9 k/uL (3.8-10.6); WBC (Perox) 5.97
[2016-12-13] MEDS ORDERED: HALOPERIDOL DECANOATE 50 MG/ML 1 ML VIAL IM STA (10:10)
[2016-12-13 10:12] LABS: MCV 84.4 fL (80.0-100.0)
[2016-12-13 10:17] LABS: INR 1.9 (<1.2); Partial Thromboplastin Time 40.8 sec (22.0-30.0); Prothrombin Time 18.6 sec (9.0-12.0)
[2016-12-13 10:22] LABS: ALT 30 U/L (21-72); AST 41 U/L (17-59); Alkaline Phosphatase 117 U/L (38-126); Amylase <30 U/L (30-110); Anion Gap 14 mmol/L; Blood Urea Nitrogen 3 mg/dL (9-20); Calcium 7.7 mg/dL (8.4-10.2); Carbon Dioxide 26 mmol/L (22-30); Chloride 103 mmol/L (98-107); Glucose 101 mg/dL (74-99); Magnesium 1.7 mg/dL (1.6-2.3); Non-African American GFR(MDRD) >60 (>60 ml/min/1.73 sqM); Potassium 3.4 mmol/L (3.5-5.1); Sodium 143 mmol/L (137-145); Total Bilirubin 0.4 mg/dL (0.2-1.3); Total Protein 6.1 g/dL (6.3-8.2)
[2016-12-13 10:29] LABS: Creatine Kinase 114 U/L (55-170)
[2016-12-13 10:36] LABS: Alcohol 355 mg/dL
[2016-12-13 10:42] LABS: Creatine Kinase MB 1.2 ng/mL (0.0-2.4); Troponin I <0.012 ng/mL (0.000-0.034)
[2016-12-13] MEDS ORDERED: LORazepam 2 MG/ML SYRINGE IV STA (11:01)
--- NOTE | 2016-12-13 12:22 | CT ---
EXAMINATION TYPE: CT brain wo con DATE OF EXAM: 12/13/2016 COMPARISON: 08/27/2013 HISTORY: Fall, ETOH CT DLP: 1098.9 mGycm. Automated Exposure Control for Dose Reduction was Utilized. TECHNIQUE: CT scan of the head is performed without contrast. FINDINGS: There is no acute intracranial hemorrhage, mass effect, or midline shift identified. Ence phalomalacia is again seen in the right temporal and now visualized in the right parietal lobe compat ible with prior ischemia. The ventricles and sulci demonstrate symmetric and proportional age-related atrophy other than the previously mentioned encephalomalacia. The globes are intact and the visuali zed sinuses are clear although there is hypoplasia of the frontal sinuses. Atherosclerosis is seen in the intracranial vasculature. IMPRESSION: 1. No acute intracranial hemorrhage, mass effect, or midline shift is seen. 2. 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
--- NOTE | 2016-12-13 12:23 | XR ---
EXAMINATION TYPE: XR chest 2V DATE OF EXAM: 12/13/2016 COMPARISON: 10/13/2016 HISTORY: Unresponsive. Alcohol abuse. TECHNIQUE: Frontal and lateral views of the chest are obtained. FINDINGS: There is no focal air space opacity, pleural effusion, or pneumothorax seen. The cardiac silhouette size is within normal limits. The osseous structures are intact. Right reverse humeral a rthroplasty is partially visualized. IMPRESSION: No acute cardiopulmonary process.
[2016-12-13] MEDS ORDERED: LORazepam 2 MG/ML SYRINGE IV PRN (12:59)
[2016-12-13] MEDS ORDERED: THIAMINE 100 MG/ML 2 ML VIAL IM STA (12:59)
[2016-12-13] MEDS ORDERED: IBUPROFEN 400 MG TAB PO PRN (13:00)
[2016-12-13] MEDS ORDERED: NALOXONE 0.4 MG/ML 1 ML VIAL IV PRN (13:00)
[2016-12-13] MEDS ORDERED: ONDANSETRON 4 MG/2 ML VIAL IVP PRN (13:00)
[2016-12-13] MEDS ORDERED: Acetaminophen-Codeine 300-30mg TAB PO PRN (13:00)
[2016-12-13] MEDS ORDERED: ACETAMINOPHEN TAB 325 MG TAB PO PRN (13:00)
[2016-12-13] MEDS ORDERED: ALBUTEROL INHALER 60 PUFF/8 GM INHALER INHALATION PRN (13:02)
[2016-12-13] MEDS ORDERED: DIPHENOX-ATROP 2.5-0.025 MG 1 EACH TAB PO PRN (13:02)
[2016-12-13] MEDS: LORazepam 2 MG/ML SYRINGE IV PRN ×4 (14:40→22:08)
[2016-12-13] MEDS: SODIUM CHLORIDE 0.9% 1,000 ML IV SCH (15:23)
[2016-12-13] MEDS ORDERED: IPRATROPIUM-ALBUTEROL 3 ML NEB INHALATION SCH (16:00)
[2016-12-13 17:00] LABS: Glucose,Whole Blood 97 mg/dL (75-99)
[2016-12-13] MEDS: THIAMINE 100 MG TAB PO SCH (17:12)
[2016-12-13] MEDS: ALBUTEROL NEBULIZED 2.5 MG/3 ML INHALATION PRN (20:10)
[2016-12-13] MEDS: SYMBICORT 160-4.5 MCG INHALER INHALATION SCH (20:10)
[2016-12-13 20:25] LABS: Glucose,Whole Blood 99 mg/dL (75-99)
[2016-12-13] MEDS: METOPROLOL TARTRATE 25 MG TAB PO SCH (21:46)
[2016-12-13] MEDS: PRAVASTATIN SODIUM 40 MG TAB PO SCH (21:46)
[2016-12-13] MEDS: TAMSULOSIN 0.4 MG CAP.ER.24H PO SCH (21:46)
[2016-12-14] MEDS: SODIUM CHLORIDE 0.9% 1,000 ML IV SCH ×2 (00:20→09:10)
--- NOTE | 2016-12-14 00:36 | P.HPIM ---
History of Present Illness H&P Date: 12/13/16 Chief Complaint: Alcohol withdrawals This is a 71-year-old male with a known history of Atrial Fibrillation, Chest Pain / Angina, cardiomyopathy, COPD, Hyperlipidemia, Hypertension, Pneumonia presents emergency Department chief complaint of acute alcohol intoxication and was found on the ground. Patient arrives very combative, and is threatening staff. Patient apparently fell between his toilet in his bathtub, and was calling for help when a neighbor heard it. EMS responded, and found bottles of vodka and beer around the apartment. Patient has no complaints. He reports that he drank a gallon of vodka last night. According to EMS he was remaining sober for the past few months, then he discovered that [facility] ([facility] can deliver to the house, and neighbor found that he started drinking again. According to EMS he's been off of his medications for the past few weeks. Patient EKG showed no evidence of A. fib, this is patient's history. CT brain was negative for any acute process, chest x-rays showed no acute process. Review of Systems Complete review of systems could not be obtained from the patient. He denied any chest pain or short of breath. No nausea vomiting abdominal pain. No dysuria or diarrhea. No headache or dizziness or lightheadedness. Past Medical History Past Medical History: Atrial Fibrillation, Chest Pain / Angina, Heart Failure, COPD, Hyperlipidemia, Hypertension, Pneumonia Additional Past Medical History / Comment(s): AFIB,ETOH, ALCOHOLIC CARDIOMYOPATHY, DT'S, CERVICAL AND LUMBAR SPONDYLOSIS, CARPAL TUNNEL disease. History of Any Multi-Drug Resistant Organisms: None Reported Past Surgical History: Back Surgery, Hernia Repair Additional Past Surgical History / Comment(s): right shoulder, bilateral cataract surgery , UMBILICAL HERNIA KINDNEY STONES REMOVED, HAMMER TOE SX X3, with subsequent amputation of the second great toe on his right foot, pain injections through neurology, colonoscopy Past Anesthesia/Blood Transfusion Reactions: No Reported Reaction Past Psychological History: No Psychological Hx Reported Smoking Status: Current every day smoker Past Alcohol Use History: Daily Past Drug Use History: None Reported - Past Family History Father Family Medical History: Diabetes Mellitus Mother History Unknown: Yes Additional Family Medical History / Comment(s): 2001 Medications and Allergies Home Medications Medication Instructions Recorded Confirmed Type HYDROcodone/APAP 10-325MG [[place] 1 tab PO Q6H PRN 08/27/13 12/13/16 History 10-325] Budesonide/Formoterol Fumarate 2 puff INHALATION RT-BID 01/17/16 12/13/16 History [Symbicort 160-4.5 Mcg Inhaler] Tamsulosin HCl [Flomax] 0.4 mg PO HS 01/17/16 12/13/16 History Albuterol Sulfate [Proair Hfa] 2 puff INHALATION RT-Q6H PRN 09/14/16 12/13/16 History Amiodarone [Cordarone] 400 mg PO DAILY 10/12/16 12/13/16 History Albuterol Nebulized [Ventolin 2.5 mg INHALATION RT-QID PRN 12/13/16 12/13/16 History Nebulized] Diphenox-Atrop 2.5-0.025 mg 1 tab PO DAILY PRN 12/13/16 12/13/16 History [Lomotil] Ipratropium [place] [Atrovent Hfa] 2 puff INHALATION RT-DAILY 12/13/16 12/13/16 History Metoprolol Tartrate [Lopressor] 25 mg PO BID 12/13/16 12/13/16 History Pravastatin Sodium [Pravachol] 40 mg PO HS 12/13/16 12/13/16 History Rivaroxaban [Xarelto] 20 mg PO DAILY 12/13/16 12/13/16 History Allergies Allergy/AdvReac Type Severity Reaction Status Date / Time cephalexin monohydrate Allergy Rash/Hives Verified 09/26/16 15:47 [From Keflex] Physical Exam Vitals: Vital Signs Temp Pulse Resp BP Pulse Ox 12/13/16 13:59 74 17 106/52 93 L 12/13/16 09:18 97.2 F L 72 17 113/55 95 Intake and Output 12/13/16 12/13/16 12/13/16 06:59 14:59 22:59 Intake Total 1600 Balance 1600 Intake: Amount of Fluid Infused ( 1600 ml) Other: Weight 83.915 kg Patient Weight 12/14/16 06:59 Weight 83.915 kg PHYSICAL EXAMINATION: Patient is lying in the bed comfortably, no acute distress, awake alert. Patient is drowsy and could not provide any history. HEENT: Normocephalic. Neck is supple. Pupils reactive. Nostrils clear. Oral cavity is moist. Ears reveal no drainage. Neck reveals no JVD, carotid bruits, or thyromegaly. CHEST EXAMINATION: Trachea is central. Symmetrical expansion. Lung rocha clear to auscultation and percussion. CARDIAC: Normal S1, S2 with no gallops. No murmurs ABDOMEN: Soft. Bowel sounds normal. No organomegaly. No abdominal bruits. Extremities reveal no edema. No clubbing or cyanosis Neurologically awake, alert, oriented x3 with well-coordinated movements. Drowsy Skin: no rash or skin lesions Musculoskeletal: no joint swelling or deformity. Results CBC & Chem 7: 12/13/16 09:42 12/13/16 09:42 Labs: Abnormal Lab Results - Last 24 Hours (Table) 12/13/16 12/13/16 12/13/16 Range/Units 09:42 09:42 09:42 RBC 4.20 L (4.30-5.90) m/uL Hgb 10.9 L (13.0-17.5) gm/dL Hct 35.4 L (39.0-53.0) % MCHC 30.8 L (31.0-37.0) g/dL RDW 16.9 H (11.5-15.5) % PT 18.6 H (9.0-12.0) sec INR 1.9 H (<1.2) APTT 40.8 H (22.0-30.0) sec Potassium 3.4 L (3.5-5.1) mmol/L BUN 3 L (9-20) mg/dL Glucose 101 H (74-99) mg/dL Calcium 7.7 L (8.4-10.2) mg/dL Total Protein 6.1 L (6.3-8.2) g/dL Albumin 3.2 L (3.5-5.0) g/dL Amylase <30 L (30-110) U/L Assessment and Plan Plan: #1 acute alcohol intoxication with level of 355 #2 history of alcohol abuse. Recently have been sober for the past 2 months and found that can do a alcohol to home and started drinking again #3 atrial fibrillation on metoprolol and amiodarone and xarelto #4 normocytic anemia #5 coagulopathy with INR level I.9 Plan: Patient will be continued on telemetry monitoring and patient was started on IV fluids we will continue the thiamine and multivitamins and monitor for alcohol withdrawals and DTs. We will consider the home medications and follow closely. we'll check iron level. Further recommendations based on the clinical course.
[2016-12-14] MEDS: LORazepam 2 MG/ML SYRINGE IV PRN ×6 (03:36→23:06)
[2016-12-14 07:43] LABS: Anion Gap 6 mmol/L; Blood Urea Nitrogen 7 mg/dL (9-20); Calcium 7.3 mg/dL (8.4-10.2); Carbon Dioxide 27 mmol/L (22-30); Chloride 110 mmol/L (98-107); Glucose 87 mg/dL (74-99); Non-African American GFR(MDRD) >60 (>60 ml/min/1.73 sqM); Potassium 3.9 mmol/L (3.5-5.1); Sodium 143 mmol/L (137-145)
--- NOTE | 2016-12-14 07:51 | XR ---
EXAMINATION TYPE: XR chest 1V portable DATE OF EXAM: 12/14/2016 COMPARISON: Yesterday HISTORY: Chest pain TECHNIQUE: Single frontal view of the chest is obtained. FINDINGS: There is no heart failure nor confluent pneumonic infiltrate. There are no hilar masses. T here is right shoulder prosthesis. Costophrenic angles are clear. IMPRESSION: No active cardiopulmonary disease. No change.
[2016-12-14] MEDS ORDERED: IPRATROPIUM 0.5 MG/2.5 ML NEBU INHALATION SCH (08:00)
[2016-12-14 08:05] LABS: Anisocytosis Slight; Basophils % (A) 0 %; CH 26.7; CHCM 30.4; Eosinophils # (A) 0.1 k/uL (0-0.7); Eosinophils % (A) 2 %; HDW 2.69; Hypochromasia Moderate; Luc # (Auto) 0.12; Luc % (Auto) 2; Lymphocytes # (A) 1.1 k/uL (1.0-4.8); Lymphocytes % (A) 21 %; MCH 25.9 pg (25.0-35.0); MCHC 29.4 g/dL (31.0-37.0); MCV 87.9 fL (80.0-100.0); Mean Platelet Volume 7.6; Monocytes # (A) 0.3 k/uL (0-1.0); Monocytes % (A) 6 %; Neutrophils # (A) 3.9 k/uL (1.3-7.7); Neutrophils % (A) 70 %; RBC 3.52 m/uL (4.30-5.90); RDW 16.5 % (11.5-15.5); WBC 5.6 k/uL (3.8-10.6); WBC (Perox) 5.74
[2016-12-14] MEDS: SYMBICORT 160-4.5 MCG INHALER INHALATION SCH ×2 (08:11→20:14)
[2016-12-14 08:13] LABS: HGB 9.1 gm/dL (13.0-17.5)
[2016-12-14] MEDS: METOPROLOL TARTRATE 25 MG TAB PO SCH ×2 (09:11→21:05)
[2016-12-14] MEDS: AMIODARONE 200 MG TAB PO SCH (09:11)
[2016-12-14] MEDS: PANTOPRAZOLE 40 MG/10 ML VIAL IV SCH (09:12)
[2016-12-14] MEDS: RIVAROXABAN 10 MG TAB PO SCH (09:12)
[2016-12-14] MEDS: ALBUTEROL NEBULIZED 2.5 MG/3 ML INHALATION PRN ×2 (11:31→16:17)
[2016-12-14 13:03] VITALS: BMI 26.4
[2016-12-14 13:07] LABS: Iron 41 ug/dL (49-181)
[2016-12-14 13:16] LABS: Total Iron Binding Capacity 316 ug/dL (261-462)
[2016-12-14] MEDS ORDERED: diphenhydrAMINE 50 MG/ML 1 ML VIAL IVP STA (13:39)
[2016-12-14] MEDS ORDERED: LORazepam 2 MG/ML SYRINGE IV STA (13:40)
[2016-12-14] MEDS: THIAMINE 100 MG TAB PO SCH ×2 (13:41→17:00)
[2016-12-14] MEDS: IPRATROPIUM-ALBUTEROL 3 ML NEB INHALATION SCH (20:14)
[2016-12-14] MEDS: PRAVASTATIN SODIUM 40 MG TAB PO SCH (21:05)
[2016-12-14] MEDS: TAMSULOSIN 0.4 MG CAP.ER.24H PO SCH (21:05)
[2016-12-15] MEDS: ALBUTEROL NEBULIZED 2.5 MG/3 ML INHALATION PRN (00:23)
--- NOTE | 2016-12-15 01:23 | P.PN ---
Subjective Principal diagnosis: Acute alcohol intoxication This is a 71-year-old male with a known history of Atrial Fibrillation, Chest Pain / Angina, cardiomyopathy, COPD, Hyperlipidemia, Hypertension, Pneumonia presents emergency Department chief complaint of acute alcohol intoxication and was found on the ground. Patient arrives very combative, and is threatening staff. Patient apparently fell between his toilet in his bathtub, and was calling for help when a neighbor heard it. EMS responded, and found bottles of vodka and beer around the apartment. Patient has no complaints. He reports that he drank a gallon of vodka last night. According to EMS he was remaining sober for the past few months, then he discovered that [employer] can deliver to the house, and neighbor found that he started drinking again. According to EMS he's been off of his medications for the past few weeks. Patient EKG showed no evidence of A. fib, this is patient's history. CT brain was negative for any acute process, chest x-rays showed no acute process. On 12/14/2016 Today morning patient became more combative and and was petitioned. Currently denied any chest pain or short of breath. No nausea vomiting abdominal pain patient is tolerating by mouth diet. continues to have alcohol withdrawal symptoms. Objective - Vital Signs Vital signs: Vital Signs Temp 97.8 F 12/14/16 07:00 Pulse 84 12/14/16 20:23 Resp 16 12/14/16 16:00 BP 121/56 12/14/16 07:00 Pulse Ox 95 12/14/16 07:00 Intake & Output 12/14/16 12/14/16 12/15/16 06:59 18:59 06:59 Intake Total 800 740 Balance 800 740 Weight 83.5 kg Intake: IV 800 Sodium Chloride 0.9% 1, 800 000 ml @ 100 mls/hr IV . Q10H LUKASZ Rx#:[id number] Intake, IV Titration 500 Amount Sodium Chloride 0.9% 1, 500 000 ml @ 100 mls/hr IV . Q10H LUKASZ Rx#:[id number] Oral 240 Other: Voiding Method Bedside Commode Bedside Commode Urinal Urinal # Voids 3 3 # Bowel Movements 2 - Exam PHYSICAL EXAMINATION: Patient is lying in the bed comfortably, no acute distress, awake alert and oriented.. HEENT: Normocephalic. Neck is supple. Pupils reactive. Nostrils clear. Oral cavity is moist. Ears reveal no drainage. Neck reveals no JVD, carotid bruits, or thyromegaly. CHEST EXAMINATION: Trachea is central. Symmetrical expansion. Lung rocha clear to auscultation and percussion. CARDIAC: Normal S1, S2 with no gallops. No murmurs ABDOMEN: Soft. Bowel sounds normal. No organomegaly. No abdominal bruits. Extremities reveal no edema. No clubbing or cyanosis Neurologically awake, alert, oriented x3 with well-coordinated movements. Skin: no rash or skin lesions Musculoskeletal: no joint swelling or deformity. - Labs CBC & Chem 7: 12/14/16 07:02 12/14/16 07:02 Labs: Abnormal Lab Results - Last 24 Hours (Table) 12/14/16 12/14/16 Range/Units 07:02 07:02 RBC 3.52 L (4.30-5.90) m/uL Hgb 9.1 L D (13.0-17.5) gm/dL Hct 31.0 L (39.0-53.0) % MCHC 29.4 L (31.0-37.0) g/dL RDW 16.5 H (11.5-15.5) % Chloride 110 H (98-107) mmol/L BUN 7 L (9-20) mg/dL Calcium 7.3 L (8.4-10.2) mg/dL Iron 41 L (49-181) ug/dL % Saturation 13.0 L (20-50) % Assessment and Plan Plan: #1 acute alcohol intoxication with level of 355 #2 acute withdrawal symptoms and possible DTs #2 history of alcohol abuse. Recently have been sober for the past 2 months and found that they can bring alcohol to home and started drinking again #3 atrial fibrillation on metoprolol and amiodarone and xarelto #4 normocytic anemia/iron deficiency anemia #5 coagulopathy with INR level I.9 Plan: Patient will be continued on telemetry monitoring and patient was started on IV fluids we will continue the thiamine and multivitamins and monitor for alcohol withdrawals and DTs. We will consider the home medications and follow closely. we'll check iron level. Further recommendations based on the clinical course. Time with Patient: Greater than 30
[2016-12-15] MEDS: LORazepam 2 MG/ML SYRINGE IV PRN (03:11)
[2016-12-15] MEDS: SODIUM CHLORIDE 0.9% 1,000 ML IV SCH (07:59)
[2016-12-15] MEDS: FERROUS SULFATE 325 MG TAB PO SCH ×2 (08:00→16:56)
[2016-12-15] MEDS: METOPROLOL TARTRATE 25 MG TAB PO SCH ×2 (08:00→21:18)
[2016-12-15] MEDS: AMIODARONE 200 MG TAB PO SCH (08:00)
[2016-12-15] MEDS: RIVAROXABAN 10 MG TAB PO SCH (08:01)
[2016-12-15] MEDS: PANTOPRAZOLE 40 MG/10 ML VIAL IV SCH (08:01)
[2016-12-15] MEDS: IPRATROPIUM-ALBUTEROL 3 ML NEB INHALATION SCH ×4 (08:35→21:15)
[2016-12-15] MEDS: SYMBICORT 160-4.5 MCG INHALER INHALATION SCH ×2 (08:36→21:13)
[2016-12-15] MEDS: THIAMINE 100 MG TAB PO SCH ×2 (11:55→16:56)
[2016-12-15] MEDS: TAMSULOSIN 0.4 MG CAP.ER.24H PO SCH (21:19)
[2016-12-15] MEDS: PRAVASTATIN SODIUM 40 MG TAB PO SCH (21:19)
[2016-12-16] MEDS: ALBUTEROL NEBULIZED 2.5 MG/3 ML INHALATION PRN (04:02)
--- NOTE | 2016-12-16 06:07 | CONS ---
DATE OF SERVICE: 12/15/2016 IDENTIFYING DATA: A 71-year-old male patient. HISTORY OF PRESENT ILLNESS: Mr. Hills is admitted to the medical floor at [facility] with alcohol intoxication and apparently was found on the ground. Per chart history, he fell between the toilet and the bathtub and was yelling for help. Per chart history, he was presenting as combative and threatening to staff. He states that he brought himself in because he had fallen. He says he is feeling better. He is not quite sure why he fell. He says his mood has been okay lately. He states that his bills are paid up, his house payment, insurance payment and his phone is paid for. He states that he does deal with insomnia. He states that he has been drinking alcohol a little bit to go to sleep at night. PSYCHIATRIC HISTORY: He denies. He denies any psychiatric hospitalizations. He denies any history of hurting himself. He says he has tried Ambien and another pill for sleep, which did not work for him. PSYCHIATRIC FAMILY HISTORY: None that he is aware of. MEDICAL HISTORY: Atrial fibrillation, chest pain/angina, cardiomyopathy, COPD, hyperlipidemia, hypertension, pneumonia. CURRENT MEDICATIONS: Tylenol p.r.n., Tylenol No. 3 p.r.n., Ventolin p.r.n., DuoNeb, Cordarone, Symbicort, Lomotil p.r.n., Feosol, Motrin p.r.n., Ativan p.r.n., Lopressor, Narcan p.r.n., Zofran p.r.n., Protonix, Pravachol, Xarelto, Flomax, vitamin B1. SOCIAL HISTORY: He says Gissel used to be his legal guardian, but he is his own guardian now. He lives with a woman who stays upstairs and takes his garbage out, does cleaning for him. 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 DRUG AND ALCOHOL HISTORY: He says he uses alcohol a little bit to go to sleep, none during the day. He has never been to rehab in the past. He has no desire to go to rehab. He does describe history of being an alcoholic. MENTAL STATUS EXAM: He is alert, overall cooperative with the interview. Speech is fluent, not rapid or pressured. His mood is described as "okay". He does not show any agitation. He is oriented to place, not to date. He denies any thoughts of harm to self or others. There is no evidence of any active psychosis. IMPRESSION: Alcohol use disorder. PLAN/RECOMMENDATIONS: I do not see any criteria for inpatient psychiatric hospitalization at this time. A petition had been done earlier related to his risk of falls. At this time, I do not see any criteria for inpatient psychiatric hospitalization. There is alcohol use disorder. Did talk with him about AA meetings. Also talked about avoiding alcohol use and we can provide him with outpatient referral sheet regarding outpatient mental health and substance abuse treatment options. Do not recommend any psychotropic medication at this time. ALONSO
[2016-12-16 07:32] VITALS: RESP 20
[2016-12-16] MEDS: SYMBICORT 160-4.5 MCG INHALER INHALATION SCH (07:56)
[2016-12-16] MEDS: IPRATROPIUM-ALBUTEROL 3 ML NEB INHALATION SCH ×3 (07:56→16:12)
[2016-12-16] MEDS: RIVAROXABAN 10 MG TAB PO SCH (08:56)
[2016-12-16] MEDS: FERROUS SULFATE 325 MG TAB PO SCH ×2 (08:56→17:25)
[2016-12-16] MEDS: AMIODARONE 200 MG TAB PO SCH (08:57)
[2016-12-16] MEDS: PANTOPRAZOLE 40 MG/10 ML VIAL IV SCH (08:57)
[2016-12-16] MEDS: METOPROLOL TARTRATE 25 MG TAB PO SCH (08:58)
[2016-12-16] MEDS: THIAMINE 100 MG TAB PO SCH ×2 (12:06→17:25)
[2016-12-16 15:32] VITALS: BP 119/56; TEMP 98.2
--- NOTE | 2016-12-16 16:53 | CDI ---
In responding to this query, please exercise your independent professional judgment. The [facility] Coding Staff and Clinical Documentation Specialists appreciate your assistance in clarifying documentation, maintaining compliance with coding guidelines, accurately documenting patients condition and capturing severity of illness. The fact that a question is asked does not imply that any particular answer is desired or expected. Communication forms are a method of clarifying documentation and are not made part of the Legal Health Record. Thank you in advance for your clarification. Last Revision, June 2015 Soto Posey [address] [facility] [place] [address] Documentation Clarification Form Date: 12/16/2016 4:13:00 PM From: Angie Crowell Admit Date: 12/13/2016 1:00:00 PM Patient Name: Juan Carlos Hills Visit Number: [id number] Discharge Date: Dr. Nelson Larsen Altered mental status was documented in the ED evaluation and the H&P. Patient history/risk factors: Atrial Fibrillation Alcohol cardiomyopathy, COPD Hypertension, Heart failure, current every day smoke, Clinical Indicators: Patient was found on the ground, arrives very combative, threatening staff. Patient is drowsy and could not provide any history. Vital signs 113/55 72 17 97.2 Labs: Alcohol level: 355, Chest x-ray: negative CT Bran: No ac hemorrhage, mass effect or midline shift. 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 Treatment: Restraint Initiation CIWA Protocol Ativan IV PRN In your professional opinion, please clarify the etiology of the altered mental status, if known. Encephalopathy (specify Type: Metabolic, Toxic, Other,and Underlying Medical Illness) Delirium (specify cause) Dementia (if know, specify Type and if with/without Behavioral Disturbance) Other condition (please specify) Unable to determine Please document in your progress notes and discharge summary in order to capture severity of illness and risk of mortality. Include clinical findings that support your diagnosis. FYI: Press F11 to launch patient chart. MTDRomaine
[2016-12-16 17:07] VITALS: PULSE 54
--- NOTE | 2016-12-16 21:45 | P.DS ---
<Jodi Perez Shaylee - Last Filed: 12/16/16 21:19> Providers Date of admission: 12/13/16 13:00 Expected date of discharge: 12/16/16 Attending physician: Martin Norton Consults: 12/14/16 16:48 Consult Physician Routine Consulting Provider: Miguelito Salazar Consult Reason/Comments: ETOH Do you want consulting provider notified?: Already Contacted 12/14/16 16:50 Consult Physician Routine Consulting Provider: Gracie Pickett Consult Reason/Comments: ETOH Do you want consulting provider notified?: Already Contacted Primary care physician: Darrick June [facility] Course: FINAL DIAGNOSES: -Acute alcohol intoxication, improved -Persistent atrial fibrillation with a rapid ventricular rate, patient is now in sinus rhythm. -Acute chronic obstructive pulmonary disease exacerbation in a smoker. -Chronic hypoxic respiratory failure from underlying chronic obstructive pulmonary disease, patient is on home oxygen. -Macrocytic anemia, nutritional, likely due to alcohol use. -Hyperlipidemia. -Essential hypertension. -Chronic alcohol dependence. -Chronic nicotine dependence patient is a current smoker. -Hypoalbuminemia, probably from protein calorie malnutrition -Chronic congestive heart failure from systolic dysfunction, ejection fraction 45% HOSPTIAL COURSE: This is 71-year-old male who presented with acute alcohol intoxication after being found on the ground in his bathroom by a neighbor. IV fluids started outside sales applied thiamine and multivitamins added to IV fluids. Patient monitored closely for alcohol withdrawals and DTs. Patient's condition improved, no evidence of alcohol withdrawal or DTs. Tolerating his diet eating 100% of every meal, ambulating in the room and hallway. Patient demanded to be released from the hospital today, on exam shook his fist and started yelling at attending physician and nurse practitioner demanding to be released. Patient's overall condition is stable, patient was counseled on importance of smoking cessation, not smoking with oxygen on, cessation of alcohol use. Patient verbalized understanding of these instructions. PHYSICAL EXAM: CARDIOVASCULAR: First and second sounds noted, trace edema RESPIRATORY: Effort normal, coarse breath sounds bilaterally, occasional productive cough with whitish sputum GI: Abdomen soft nontender liver and spleen not palpable bowel sounds 4 last BM 12/16/2016 MUSKULOSKELETAL: Moves all 4 extremities, good power and sensation equal bilaterally. NEUROLOGIC: Alert and oriented 3, PSYCHIATRY:belligerent, yelling, demanding to be discharged, shaking his fist, throwing the remote control and covers. Patient was seen and examined by nurse practitioner Jodi Perez in all elements of the case discussed with attending Dr. Norton DISPOSITION: Patient was discharged home to the care of his significant other. Plan - Discharge Summary New Discharge Prescriptions: New Ferrous Sulfate [Iron (65 MG Elemental)] 325 mg PO BID-W/MEALS tab Thiamine [Vitamin B-1] 100 mg PO BID@1200,1700 tab Continue HYDROcodone/APAP 10-325MG [[place] 10-325] 1 tab PO Q6H PRN PRN Reason: Pain Tamsulosin HCl [Flomax] 0.4 mg PO HS Budesonide/Formoterol Fumarate [Symbicort 160-4.5 Mcg Inhaler] 2 puff INHALATION RT-BID Albuterol Sulfate [Proair Hfa] 2 puff INHALATION RT-Q6H PRN PRN Reason: Shortness Of Breath Amiodarone [Cordarone] 400 mg PO DAILY Rivaroxaban [Xarelto] 20 mg PO DAILY Pravastatin Sodium [Pravachol] 40 mg PO HS Metoprolol Tartrate [Lopressor] 25 mg PO BID Ipratropium [place] [Atrovent Hfa] 2 puff INHALATION RT-DAILY Diphenox-Atrop 2.5-0.025 mg [Lomotil] 1 tab PO DAILY PRN PRN Reason: Diarrhea Albuterol Nebulized [Ventolin Nebulized] 2.5 mg INHALATION RT-QID PRN PRN Reason: Shortness Of Breath Discharge Medication List HYDROcodone/APAP 10-325MG [[place] 10-325] 1 tab PO Q6H PRN 08/27/13 [History] Budesonide/Formoterol Fumarate [Symbicort 160-4.5 Mcg Inhaler] 2 puff INHALATION RT-BID 01/17/16 [History] Tamsulosin HCl [Flomax] 0.4 mg PO HS 01/17/16 [History] Albuterol Sulfate [Proair Hfa] 2 puff INHALATION RT-Q6H PRN 09/14/16 [History] Amiodarone [Cordarone] 400 mg PO DAILY 10/12/16 [History] Albuterol Nebulized [Ventolin Nebulized] 2.5 mg INHALATION RT-QID PRN 12/13/16 [ History] Diphenox-Atrop 2.5-0.025 mg [Lomotil] 1 tab PO DAILY PRN 12/13/16 [History] Ipratropium [place] [Atrovent Hfa] 2 puff INHALATION RT-DAILY 12/13/16 [History] Metoprolol Tartrate [Lopressor] 25 mg PO BID 12/13/16 [History] Pravastatin Sodium [Pravachol] 40 mg PO HS 12/13/16 [History] Rivaroxaban [Xarelto] 20 mg PO DAILY 12/13/16 [History] Ferrous Sulfate [Iron (65 MG Elemental)] 325 mg PO BID-W/MEALS tab 12/16/16 [Rx ] Thiamine [Vitamin B-1] 100 mg PO BID@1200,1700 tab 12/16/16 [Rx] Follow up Appointment(s)/Referral(s): Darrick Georges MD [Primary Care Provider] - 1-2 days (Patient to call Dr. Georges's office Friday morning to schedule follow up appointment. The office is closed at time of discharge.) Ambulatory/Diagnostic Orders: Basic Metabolic Panel [LAB.AMB] Location: Determined By Patient Patient Instructions/Handouts: Abuse of Alcohol (DC), Anemia (DC) Activity/Diet/Wound Care/Special Instructions: Heart Healthy diet Discharge Disposition: HOME SELF-CARE <Errol,Martin - Last Filed: 12/18/16 23:45> Hospital Course: Attending note. Date of service-12/16/2016 This patient was seen and examined by me . Discussed the patient with my nurse practitioner Ms. Perez. Feeling a bit better. Very agitated was to go home states he really feels better On examination: Lungs-decreased breath sounds and mild wheezing, psych-AO 3, irritated Investigations: White count 5.6 Assessment and plan: Multiple medical problems. Though clinically improved. Patient very agitated and wants to go home. We'll discharge the patient. Advised against smoking and alcohol, patient doesn't care
--- NOTE | 2016-12-17 00:48 | P.PN ---
Subjective Principal diagnosis: Acute alcohol intoxication This is a 71-year-old male with a known history of Atrial Fibrillation, Chest Pain / Angina, cardiomyopathy, COPD, Hyperlipidemia, Hypertension, Pneumonia presents emergency Department chief complaint of acute alcohol intoxication and was found on the ground. Patient arrives very combative, and is threatening staff. Patient apparently fell between his toilet in his bathtub, and was calling for help when a neighbor heard it. EMS responded, and found bottles of vodka and beer around the apartment. Patient has no complaints. He reports that he drank a gallon of vodka last night. According to EMS he was remaining sober for the past few months, then he discovered that [employer] can deliver to the house, and neighbor found that he started drinking again. According to EMS he's been off of his medications for the past few weeks. Patient EKG showed no evidence of A. fib, this is patient's history. CT brain was negative for any acute process, chest x-rays showed no acute process. On 12/14/2016 Today morning patient became more combative and and was petitioned. Currently denied any chest pain or short of breath. No nausea vomiting abdominal pain patient is tolerating by mouth diet. continues to have alcohol withdrawal symptoms. On 12/15/2016 Patient denied any new complaints. Anticipate discharge once cleared by psychiatric. Objective - Vital Signs Vital signs: Vital Signs Temp 98 F 12/15/16 15:00 Pulse 72 12/15/16 21:15 Resp 20 12/15/16 15:39 BP 115/56 12/15/16 15:00 Pulse Ox 98 12/15/16 21:15 Intake & Output 12/15/16 12/15/16 12/16/16 06:59 18:59 06:59 Intake Total 320 500 Balance 320 500 Weight 83.5 kg Intake: IV 160 Sodium Chloride 0.9% 1, 160 000 ml @ 100 mls/hr IV . Q10H LUKASZ Rx#:[id number] Intake, IV Titration 160 200 Amount Sodium Chloride 0.9% 1, 160 200 000 ml @ 100 mls/hr IV . Q10H LUKASZ Rx#:[id number] Oral 300 Other: Voiding Method Bedside Commode Bedside Commode Urinal # Voids 3 - Exam PHYSICAL EXAMINATION: Patient is lying in the bed comfortably, no acute distress, awake alert and oriented.. HEENT: Normocephalic. Neck is supple. Pupils reactive. Nostrils clear. Oral cavity is moist. Ears reveal no drainage. Neck reveals no JVD, carotid bruits, or thyromegaly. CHEST EXAMINATION: Trachea is central. Symmetrical expansion. Lung rocha clear to auscultation and percussion. CARDIAC: Normal S1, S2 with no gallops. No murmurs ABDOMEN: Soft. Bowel sounds normal. No organomegaly. No abdominal bruits. Extremities reveal no edema. No clubbing or cyanosis Neurologically awake, alert, oriented x3 with well-coordinated movements. Skin: no rash or skin lesions Musculoskeletal: no joint swelling or deformity. - Labs CBC & Chem 7: 12/14/16 07:02 12/14/16 07:02 Assessment and Plan Plan: #1 acute alcohol intoxication with level of 355 #2 acute withdrawal symptoms and possible DTs #2 history of alcohol abuse. Recently have been sober for the past 2 months and found that they can bring alcohol to home and started drinking again #3 atrial fibrillation on metoprolol and amiodarone and xarelto #4 normocytic anemia/iron deficiency anemia #5 coagulopathy with INR level I.9 Plan: Patient will be continued on telemetry monitoring and patient was started on IV fluids we will continue the thiamine and multivitamins and monitor for alcohol withdrawals and DTs. We will consider the home medications and follow closely. we'll check iron level. Further recommendations based on the clinical course.
--- NOTE | 2016-12-20 11:40 | CDI ---
In responding to this query, please exercise your independent professional judgment. The [facility] Coding Staff and Clinical Documentation Specialists appreciate your assistance in clarifying documentation, maintaining compliance with coding guidelines, accurately documenting patients condition and capturing severity of illness. The fact that a question is asked does not imply that any particular answer is desired or expected. Communication forms are a method of clarifying documentation and are not made part of the Legal Health Record. Thank you in advance for your clarification. Last Revision, June 2015 Soto Posey [address] [facility] [place] [address] Documentation Clarification Form Date: 12/16/2016 4:13:00 PM From: Angie Crowell Admit Date: 12/13/2016 1:00:00 PM Patient Name: Juan Carlos Hills Visit Number: [id number] Discharge Date: Dr. Nelson Larsen Altered mental status was documented in the ED evaluation and the H&P. Patient history/risk factors: Atrial Fibrillation Alcohol cardiomyopathy, COPD Hypertension, Heart failure, current every day smoke, Clinical Indicators: Patient was found on the ground, arrives very combative, threatening staff. Patient is drowsy and could not provide any history. Vital signs 113/55 72 17 97.2 Labs: Alcohol level: 355, Chest X Ray: negative CT Bran: No ac hemorrhage, mass effect or midline shift. 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 Treatment: Restraint Initiation CIWA Protocol Ativan IV PRN In your professional opinion, please clarify the etiology of the altered mental status, if known. Encephalopathy (specify Type: Metabolic, Toxic, Other, and Underlying Medical Illness) Delirium (specify cause): Dementia (if know, specify Type and if with/without Behavioral Disturbance) Other condition (please specify) Unable to determine Please document in your progress notes and discharge summary in order to capture severity of illness and risk of mortality. Include clinical findings that support your diagnosis. FYI: Press F11 to launch patient chart. MTDRomaine
== END 2016-12-16 17:35 | disposition home or self-care (01) | DRG 896 ==
LOC: EC 09:14 → EEVIPCON 09:14 → 5MS5E 13:00
PROVIDERS: ADMIT Hospitalist; ATTEND Hospitalist
DX: F10.229 Alcohol dependence with intoxication, unspecified (principal); G92 Toxic encephalopathy; F10.231 Alcohol dependence with withdrawal delirium; J96.11 Chronic respiratory failure with hypoxia; E46 Unspecified protein-calorie malnutrition; D68.9 Coagulation defect, unspecified; I42.6 Alcoholic cardiomyopathy; I50.22 Chronic systolic (congestive) heart failure; I48.1 Persistent atrial fibrillation; J44.1 Chronic obstructive pulmonary disease with (acute) exacerbation; I11.0 Hypertensive heart disease with heart failure; E78.5 Hyperlipidemia, unspecified; M47.816 Spondylosis without myelopathy or radiculopathy, lumbar region; G47.00 Insomnia, unspecified; F17.200 Nicotine dependence, unspecified, uncomplicated; D53.9 Nutritional anemia, unspecified; M47.812 Spondylosis without myelopathy or radiculopathy, cervical region; R45.6 Violent behavior; Y90.8 Blood alcohol level of 240 mg/100 ml or more; Z79.51 Long term (current) use of inhaled steroids; Z79.01 Long term (current) use of anticoagulants; Z79.899 Other long term (current) drug therapy; Z99.81 Dependence on supplemental oxygen; Z78.1 Physical restraint status; Z98.42 Cataract extraction status, left eye; Z98.41 Cataract extraction status, right eye; Z87.442 Personal history of urinary calculi; Z89.411 Acquired absence of right great toe; Z88.1 Allergy status to other antibiotic agents
CPT/HCPCS: 36415; 70450; 71010; 71020; 80048; 80053; 80320; 82150; 82550; 82553; 83540; 83550; 83690; 83735; 84484; 85025; 85610; 85730; 87324; 93005; 94640; 94760; 96365; 96366; 96372; 96375; 99285

== ENCOUNTER 2016-12-24 21:13 | Emergency (ER) | payer MEDICARE ==
[2016-12-24] MEDS ORDERED: IPRATROPIUM-ALBUTEROL 3 ML NEB INHALATION STA ×2 (21:31→22:24)
[2016-12-24] MEDS ORDERED: methylPREDNISolone SOD SUCCI 125 MG/2 ML VIAL IV STA (21:31)
[2016-12-24] MEDS ORDERED: SODIUM CHLORIDE 0.9% 1,000 ML IV STA (21:31)
[2016-12-24 21:33] VITALS: RESP 18
[2016-12-24 21:51] LABS: Anisocytosis Slight; Basophils % (A) 1 %; CH 27.3; CHCM 31.2; Eosinophils # (A) 0.1 k/uL (0-0.7); Eosinophils % (A) 3 %; HCT 33.3 % (39.0-53.0); HDW 2.68; HGB 10.2 gm/dL (13.0-17.5); Hypochromasia Slight; Luc # (Auto) 0.16; Luc % (Auto) 3; Lymphocytes # (A) 2.2 k/uL (1.0-4.8); Lymphocytes % (A) 40 %; MCH 26.9 pg (25.0-35.0); MCHC 30.6 g/dL (31.0-37.0); MCV 87.9 fL (80.0-100.0); Mean Platelet Volume 7.3; Monocytes # (A) 0.3 k/uL (0-1.0); Monocytes % (A) 5 %; Neutrophils # (A) 2.7 k/uL (1.3-7.7); Neutrophils % (A) 49 %; RBC 3.79 m/uL (4.30-5.90); RDW 18.9 % (11.5-15.5); WBC 5.5 k/uL (3.8-10.6); WBC (Perox) 5.36
[2016-12-24 21:53] LABS: Appearance,Urine Clear (Clear); Bilirubin,Urine Negative (Negative); Glucose,Urine (UA) Negative (Negative); Ketones,Urine Negative (Negative); Leukocyte Esterase,Urine Negative (Negative); Nitrite,Urine Negative (Negative); Protein,Urine Negative (Negative); Specific Gravity,Urine 1.003 (1.001-1.035); UA Billing (MACRO vs. MICRO) CHEM; Urobilinogen,Urine <2.0 mg/dL (<2.0)
[2016-12-24 22:01] LABS: ALT 37 U/L (21-72); AST 52 U/L (17-59); Alkaline Phosphatase 97 U/L (38-126); Anion Gap 13 mmol/L; Blood Urea Nitrogen 4 mg/dL (9-20); Calcium 7.6 mg/dL (8.4-10.2); Carbon Dioxide 27 mmol/L (22-30); Chloride 105 mmol/L (98-107); Glucose 97 mg/dL (74-99); Non-African American GFR(MDRD) >60 (>60 ml/min/1.73 sqM); Potassium 3.6 mmol/L (3.5-5.1); Sodium 145 mmol/L (137-145); Total Bilirubin 0.3 mg/dL (0.2-1.3)
[2016-12-24 22:11] LABS: Creatine Kinase 144 U/L (55-170)
[2016-12-24 22:12] LABS: Alcohol 342 mg/dL
[2016-12-24 22:24] LABS: Creatine Kinase MB 2.4 ng/mL (0.0-2.4); Troponin I <0.012 ng/mL (0.000-0.034)
--- NOTE | 2016-12-24 22:27 | ED ---
Alcohol HPI - General Chief Complaint: Alcohol Stated Complaint: ETOH,RAFIQ Time Seen by Provider: 12/24/16 21:26 Source: patient, EMS Mode of arrival: EMS - History of Present Illness Initial Comments: This 71-year-old white male presents via EMS with alcohol intoxication. He apparently has been drinking all day. He does have a history of daily alcohol use and his been to the hospital multiple times previously with similar symptoms. There apparently was a complaint of shortness of breath at one time. The patient is initially refusing to answer any of my questions. He is quite combative. The paramedics state that he was swinging at them. He was trying to leave as well. He required restraints via EMS and initially while in the emergency department. On recheck, he is less combative and more cooperative with questioning. He states that he has chronic shortness of breath which is unchanged from normal. He is denying any medical complaints. He states that he drinks heavily because he cannot sleep unless he drinks. No other identifiable complaints or modifying factors but history is somewhat limited likely due to his severe alcohol intoxication. - Related Data Home Medications Medication Instructions Recorded Confirmed HYDROcodone/APAP 10-325MG [Platinum 1 tab PO Q6H PRN 08/27/13 12/13/16 10-325] Budesonide/Formoterol Fumarate 2 puff INHALATION RT-BID 01/17/16 12/13/16 [Symbicort 160-4.5 Mcg Inhaler] Tamsulosin HCl [Flomax] 0.4 mg PO HS 01/17/16 12/13/16 Albuterol Sulfate [Proair Hfa] 2 puff INHALATION RT-Q6H PRN 09/14/16 12/13/16 Amiodarone [Cordarone] 400 mg PO DAILY 10/12/16 12/13/16 Albuterol Nebulized [Ventolin 2.5 mg INHALATION RT-QID PRN 12/13/16 12/13/16 Nebulized] Diphenox-Atrop 2.5-0.025 mg 1 tab PO DAILY PRN 12/13/16 12/13/16 [Lomotil] Ipratropium [place] [Atrovent Hfa] 2 puff INHALATION RT-DAILY 12/13/16 12/13/16 Metoprolol Tartrate [Lopressor] 25 mg PO BID 12/13/16 12/13/16 Pravastatin Sodium [Pravachol] 40 mg PO HS 12/13/16 12/13/16 Rivaroxaban [Xarelto] 20 mg PO DAILY 12/13/16 12/13/16 Previous Rx's Medication Instructions Recorded Ferrous Sulfate [Iron (65 MG 325 mg PO BID-W/MEALS tab 12/16/16 Elemental)] Thiamine [Vitamin B-1] 100 mg PO BID@1200,1700 tab 12/16/16 Allergies Allergy/AdvReac Type Severity Reaction Status Date / Time cephalexin monohydrate Allergy Rash/Hives Verified 09/26/16 15:47 [From Keflex] Review of Systems ROS Statement: Those systems with pertinent positive or pertinent negative responses have been documented in the HPI. ROS Other: All systems not noted in ROS Statement are negative. Past Medical History Past Medical History: Atrial Fibrillation, Chest Pain / Angina, Heart Failure, COPD, Hyperlipidemia, Hypertension, Pneumonia Additional Past Medical History / Comment(s): AFIB,ETOH, ALCOHOLIC CARDIOMYOPATHY, DT'S, CERVICAL AND LUMBAR SPONDYLOSIS, CARPAL TUNNEL disease. History of Any Multi-Drug Resistant Organisms: None Reported Past Surgical History: Back Surgery, Hernia Repair Additional Past Surgical History / Comment(s): right shoulder, bilateral cataract surgery , UMBILICAL HERNIA KINDNEY STONES REMOVED, HAMMER TOE SX X3, with subsequent amputation of the second great toe on his right foot, pain injections through neurology, colonoscopy Past Anesthesia/Blood Transfusion Reactions: No Reported Reaction Past Psychological History: No Psychological Hx Reported Smoking Status: Current every day smoker Past Alcohol Use History: Daily Past Drug Use History: None Reported - Past Family History Father Family Medical History: Diabetes Mellitus Mother History Unknown: Yes Additional Family Medical History / Comment(s): 2001 General Exam - General Exam Comments Initial Comments: GENERAL: The patient is cachectic and malnourished. VITAL SIGNS: Heart rate, blood pressure, respiratory rate reviewed as recorded in nurse's notes. EYES: Pupils are round and reactive. Extraocular movements are intact. There is some mild conjunctival erythema. ENT: No external evidence of injury, swelling, or ecchymosis. Airway is patent. Throat is clear. NECK: Nontender. No swelling or evidence of injury. No subcutaneous emphysema. Trachea is midline. No thyroid mass. HEART: Regular rate and rhythm. Good peripheral pulses. LUNGS/CHEST: Occasional wheezing noted bilaterally. No ecchymosis, subcutaneous emphysema, or tenderness. ABDOMEN: Abdomen soft without tenderness. No palpable masses or organomegaly. No peritoneal signs. No abdominal wall swelling or ecchymosis. EXTREMITIES: No extremity tenderness. Normal muscle tone and function. No thoracolumbar tenderness. NEUROLOGIC: Sensation is grossly intact. Cranial nerve exam reveals face is symmetrical, tongue is midline, speech is mildly slurred. SKIN: No abrasions or ecchymosis is noted. No induration or masses noted. PSYCHIATRIC: Alert but appears intoxicated and is quite combative initially. Course Vital Signs 12/24/16 12/24/16 12/24/16 21:16 22:30 22:40 Temperature 97.5 F L Pulse Rate 53 L 68 70 Respiratory 18 Rate Blood Pressure 127/61 O2 Sat by Pulse 95 Oximetry 12/24/16 23:16 Temperature 97.9 F Pulse Rate 81 Respiratory 18 Rate Blood Pressure 111/57 O2 Sat by Pulse 97 Oximetry Medical Decision Making - Medical Decision Making The patient was seen and examined. All diagnostics were reviewed. His EKG shows a normal sinus rhythm at a rate of 81. There is a left axis deviation. There is some nonspecific ST-T wave changes noted. The MD interval is 172, QRS duration is 108, and the QTc interval is 476. The laboratories reviewed. He does have a mild anemia. His alcohol level is significantly elevated. Old records were reviewed. It is felt as though he would require prolonged ER evaluation for further sobering. Further care will be passed off to oncoming shift. - Lab Data Result diagrams: 12/24/16 21:31 12/24/16 21:31 Lab Results 12/24/16 12/24/16 12/24/16 Range/Units 21:31 21:31 21:31 WBC 5.5 (3.8-10.6) k/uL RBC 3.79 L (4.30-5.90) m/uL Hgb 10.2 L (13.0-17.5) gm/dL Hct 33.3 L (39.0-53.0) % MCV 87.9 (80.0-100.0) fL MCH 26.9 (25.0-35.0) pg MCHC 30.6 L (31.0-37.0) g/dL RDW 18.9 H (11.5-15.5) % Plt Count 274 (150-450) k/uL Neutrophils % 49 % Lymphocytes % 40 % Monocytes % 5 % Eosinophils % 3 % Basophils % 1 % Neutrophils # 2.7 (1.3-7.7) k/uL Lymphocytes # 2.2 (1.0-4.8) k/uL Monocytes # 0.3 (0-1.0) k/uL Eosinophils # 0.1 (0-0.7) k/uL Basophils # 0.0 (0-0.2) k/uL Hypochromasia Slight Anisocytosis Slight Sodium 145 (137-145) mmol/L Potassium 3.6 (3.5-5.1) mmol/L Chloride 105 (98-107) mmol/L Carbon Dioxide 27 (22-30) mmol/L Anion Gap 13 mmol/L BUN 4 L (9-20) mg/dL Creatinine 0.86 (0.66-1.25) mg/dL Est GFR (MDRD) Af Amer >60 (>60 ml/min/1.73 sqM) Est GFR (MDRD) Non-Af >60 (>60 ml/min/1.73 sqM) Glucose 97 (74-99) mg/dL Calcium 7.6 L (8.4-10.2) mg/dL Total Bilirubin 0.3 (0.2-1.3) mg/dL AST 52 (17-59) U/L ALT 37 (21-72) U/L Alkaline Phosphatase 97 (38-126) U/L Total Creatine Kinase 144 (55-170) U/L CK-MB (CK-2) 2.4 (0.0-2.4) ng/mL CK-MB (CK-2) Rel Index 1.7 Troponin I <0.012 (0.000-0.034) ng/mL Total Protein 6.0 L (6.3-8.2) g/dL Albumin 3.1 L (3.5-5.0) g/dL Urine Color Urine Appearance (Clear) Urine pH (5.0-8.0) Ur Specific [place] (1.001-1.035) Urine Protein (Negative) Urine Glucose (UA) (Negative) Urine Ketones (Negative) Urine Blood (Negative) Urine Nitrite (Negative) Urine Bilirubin (Negative) Urine Urobilinogen (<2.0) mg/dL Ur Leukocyte Esterase (Negative) Urine Opiates Screen (NotDetected) Ur Oxycodone Screen (NotDetected) Urine Methadone Screen (NotDetected) Ur Propoxyphene Screen (NotDetected) Ur Barbiturates Screen (NotDetected) U Tricyclic Antidepress (NotDetected) Ur Phencyclidine Scrn (NotDetected) Ur Amphetamines Screen (NotDetected) U Methamphetamines Scrn (NotDetected) U Benzodiazepines Scrn (NotDetected) Urine Cocaine Screen (NotDetected) U Marijuana (THC) Screen (NotDetected) Serum Alcohol 342 mg/dL 12/24/16 12/24/16 Range/Units 21:44 21:44 WBC (3.8-10.6) k/uL RBC (4.30-5.90) m/uL Hgb (13.0-17.5) gm/dL Hct (39.0-53.0) % MCV (80.0-100.0) fL MCH (25.0-35.0) pg MCHC (31.0-37.0) g/dL RDW (11.5-15.5) % Plt Count (150-450) k/uL Neutrophils % % Lymphocytes % % Monocytes % % Eosinophils % % Basophils % % Neutrophils # (1.3-7.7) k/uL Lymphocytes # (1.0-4.8) k/uL Monocytes # (0-1.0) k/uL Eosinophils # (0-0.7) k/uL Basophils # (0-0.2) k/uL Hypochromasia Anisocytosis Sodium (137-145) mmol/L Potassium (3.5-5.1) mmol/L Chloride (98-107) mmol/L Carbon Dioxide (22-30) mmol/L Anion Gap mmol/L BUN (9-20) mg/dL Creatinine (0.66-1.25) mg/dL Est GFR (MDRD) Af Amer (>60 ml/min/1.73 sqM) Est GFR (MDRD) Non-Af (>60 ml/min/1.73 sqM) Glucose (74-99) mg/dL Calcium (8.4-10.2) mg/dL Total Bilirubin (0.2-1.3) mg/dL AST (17-59) U/L ALT (21-72) U/L Alkaline Phosphatase (38-126) U/L Total Creatine Kinase (55-170) U/L CK-MB (CK-2) (0.0-2.4) ng/mL CK-MB (CK-2) Rel Index Troponin I (0.000-0.034) ng/mL Total Protein (6.3-8.2) g/dL Albumin (3.5-5.0) g/dL Urine Color Light Yellow Urine Appearance Clear (Clear) Urine pH 6.0 (5.0-8.0) Ur Specific [place] 1.003 (1.001-1.035) Urine Protein Negative (Negative) Urine Glucose (UA) Negative (Negative) Urine Ketones Negative (Negative) Urine Blood Negative (Negative) Urine Nitrite Negative (Negative) Urine Bilirubin Negative (Negative) Urine Urobilinogen <2.0 (<2.0) mg/dL Ur Leukocyte Esterase Negative (Negative) Urine Opiates Screen Not Detected (NotDetected) Ur Oxycodone Screen Not Detected (NotDetected) Urine Methadone Screen Not Detected (NotDetected) Ur Propoxyphene Screen Not Detected (NotDetected) Ur Barbiturates Screen Not Detected (NotDetected) U Tricyclic Antidepress Not Detected (NotDetected) Ur Phencyclidine Scrn Not Detected (NotDetected) Ur Amphetamines Screen Not Detected (NotDetected) U Methamphetamines Scrn Not Detected (NotDetected) U Benzodiazepines Scrn Not Detected (NotDetected) Urine Cocaine Screen Not Detected (NotDetected) U Marijuana (THC) Screen Not Detected (NotDetected) Serum Alcohol mg/dL Disposition Clinical Impression: COPD (chronic obstructive pulmonary disease), Alcohol intoxication, Alcohol abuse, Anemia Disposition: ADMITTED IP TO THIS HOSP Condition: Fair Time of Disposition: 01:07 Decision Date: 12/25/16 Decision Time: 01:07
--- NOTE | 2016-12-24 23:29 | XR ---
INDICATION: Shortness of breath COMPARISON: CXR 12/14/16. FINDINGS: Single frontal view demonstrates a stable cardiomediastinal silhouette. There is no evidence of pulmonary vascular congestion. The lungs are clear. No pleural effusion or pneumothorax. The visualized osseous structures are intact. Redemonstrated is a reverse right shoulder arthroplasty. There are postsurgical changes of the distal right clavicle. IMPRESSION: No radiographic evidence of acute cardiopulmonary disease.
[2016-12-25] MEDS ORDERED: ALBUTEROL NEBULIZED 2.5 MG/3 ML INHALATION STA (06:18)
[2016-12-25 06:26] VITALS: BP 139/73; TEMP 98
--- NOTE | 2016-12-25 06:26 | ED ---
Medical Decision Making - Lab Data Result diagrams: 12/24/16 21:31 12/24/16 21:31 Lab Results 12/24/16 12/24/16 12/24/16 Range/Units 21:31 21:31 21:31 WBC 5.5 (3.8-10.6) k/uL RBC 3.79 L (4.30-5.90) m/uL Hgb 10.2 L (13.0-17.5) gm/dL Hct 33.3 L (39.0-53.0) % MCV 87.9 (80.0-100.0) fL MCH 26.9 (25.0-35.0) pg MCHC 30.6 L (31.0-37.0) g/dL RDW 18.9 H (11.5-15.5) % Plt Count 274 (150-450) k/uL Neutrophils % 49 % Lymphocytes % 40 % Monocytes % 5 % Eosinophils % 3 % Basophils % 1 % Neutrophils # 2.7 (1.3-7.7) k/uL Lymphocytes # 2.2 (1.0-4.8) k/uL Monocytes # 0.3 (0-1.0) k/uL Eosinophils # 0.1 (0-0.7) k/uL Basophils # 0.0 (0-0.2) k/uL Hypochromasia Slight Anisocytosis Slight Sodium 145 (137-145) mmol/L Potassium 3.6 (3.5-5.1) mmol/L Chloride 105 (98-107) mmol/L Carbon Dioxide 27 (22-30) mmol/L Anion Gap 13 mmol/L BUN 4 L (9-20) mg/dL Creatinine 0.86 (0.66-1.25) mg/dL Est GFR (MDRD) Af Amer >60 (>60 ml/min/1.73 sqM) Est GFR (MDRD) Non-Af >60 (>60 ml/min/1.73 sqM) Glucose 97 (74-99) mg/dL Calcium 7.6 L (8.4-10.2) mg/dL Total Bilirubin 0.3 (0.2-1.3) mg/dL AST 52 (17-59) U/L ALT 37 (21-72) U/L Alkaline Phosphatase 97 (38-126) U/L Total Creatine Kinase 144 (55-170) U/L CK-MB (CK-2) 2.4 (0.0-2.4) ng/mL CK-MB (CK-2) Rel Index 1.7 Troponin I <0.012 (0.000-0.034) ng/mL Total Protein 6.0 L (6.3-8.2) g/dL Albumin 3.1 L (3.5-5.0) g/dL Urine Color Urine Appearance (Clear) Urine pH (5.0-8.0) Ur Specific [place] (1.001-1.035) Urine Protein (Negative) Urine Glucose (UA) (Negative) Urine Ketones (Negative) Urine Blood (Negative) Urine Nitrite (Negative) Urine Bilirubin (Negative) Urine Urobilinogen (<2.0) mg/dL Ur Leukocyte Esterase (Negative) Urine Opiates Screen (NotDetected) Ur Oxycodone Screen (NotDetected) Urine Methadone Screen (NotDetected) Ur Propoxyphene Screen (NotDetected) Ur Barbiturates Screen (NotDetected) U Tricyclic Antidepress (NotDetected) Ur Phencyclidine Scrn (NotDetected) Ur Amphetamines Screen (NotDetected) U Methamphetamines Scrn (NotDetected) U Benzodiazepines Scrn (NotDetected) Urine Cocaine Screen (NotDetected) U Marijuana (THC) Screen (NotDetected) Serum Alcohol 342 mg/dL 12/24/16 12/24/16 Range/Units 21:44 21:44 WBC (3.8-10.6) k/uL RBC (4.30-5.90) m/uL Hgb (13.0-17.5) gm/dL Hct (39.0-53.0) % MCV (80.0-100.0) fL MCH (25.0-35.0) pg MCHC (31.0-37.0) g/dL RDW (11.5-15.5) % Plt Count (150-450) k/uL Neutrophils % % Lymphocytes % % Monocytes % % Eosinophils % % Basophils % % Neutrophils # (1.3-7.7) k/uL Lymphocytes # (1.0-4.8) k/uL Monocytes # (0-1.0) k/uL Eosinophils # (0-0.7) k/uL Basophils # (0-0.2) k/uL Hypochromasia Anisocytosis Sodium (137-145) mmol/L Potassium (3.5-5.1) mmol/L Chloride (98-107) mmol/L Carbon Dioxide (22-30) mmol/L Anion Gap mmol/L BUN (9-20) mg/dL Creatinine (0.66-1.25) mg/dL Est GFR (MDRD) Af Amer (>60 ml/min/1.73 sqM) Est GFR (MDRD) Non-Af (>60 ml/min/1.73 sqM) Glucose (74-99) mg/dL Calcium (8.4-10.2) mg/dL Total Bilirubin (0.2-1.3) mg/dL AST (17-59) U/L ALT (21-72) U/L Alkaline Phosphatase (38-126) U/L Total Creatine Kinase (55-170) U/L CK-MB (CK-2) (0.0-2.4) ng/mL CK-MB (CK-2) Rel Index Troponin I (0.000-0.034) ng/mL Total Protein (6.3-8.2) g/dL Albumin (3.5-5.0) g/dL Urine Color Light Yellow Urine Appearance Clear (Clear) Urine pH 6.0 (5.0-8.0) Ur Specific [place] 1.003 (1.001-1.035) Urine Protein Negative (Negative) Urine Glucose (UA) Negative (Negative) Urine Ketones Negative (Negative) Urine Blood Negative (Negative) Urine Nitrite Negative (Negative) Urine Bilirubin Negative (Negative) Urine Urobilinogen <2.0 (<2.0) mg/dL Ur Leukocyte Esterase Negative (Negative) Urine Opiates Screen Not Detected (NotDetected) Ur Oxycodone Screen Not Detected (NotDetected) Urine Methadone Screen Not Detected (NotDetected) Ur Propoxyphene Screen Not Detected (NotDetected) Ur Barbiturates Screen Not Detected (NotDetected) U Tricyclic Antidepress Not Detected (NotDetected) Ur Phencyclidine Scrn Not Detected (NotDetected) Ur Amphetamines Screen Not Detected (NotDetected) U Methamphetamines Scrn Not Detected (NotDetected) U Benzodiazepines Scrn Not Detected (NotDetected) Urine Cocaine Screen Not Detected (NotDetected) U Marijuana (THC) Screen Not Detected (NotDetected) Serum Alcohol mg/dL Disposition Clinical Impression: COPD (chronic obstructive pulmonary disease), Alcohol intoxication, Alcohol abuse, Anemia Disposition: ADMITTED IP TO THIS HOSP Condition: Fair Instructions: Alcohol Intoxication (ED), COPD (Chronic Obstructive Pulmonary Disease) (ED) Referrals: Darrick Georges MD [Primary Care Provider] - 1-2 days
[2016-12-25 06:33] VITALS: PULSE 85
[2016-12-25] MEDS ORDERED: IPRATROPIUM-ALBUTEROL 3 ML NEB INHALATION SCH ×2 (09:00)
== END 2016-12-25 07:06 | disposition other institution (70) ==
LOC: EC 21:13
DX: J44.9 Chronic obstructive pulmonary disease, unspecified (principal); F10.129 Alcohol abuse with intoxication, unspecified; Y90.8 Blood alcohol level of 240 mg/100 ml or more; D64.9 Anemia, unspecified; I48.91 Unspecified atrial fibrillation; I11.0 Hypertensive heart disease with heart failure; I50.9 Heart failure, unspecified; E78.5 Hyperlipidemia, unspecified; F17.200 Nicotine dependence, unspecified, uncomplicated; Z78.1 Physical restraint status; Z88.1 Allergy status to other antibiotic agents; Z79.01 Long term (current) use of anticoagulants; Z79.51 Long term (current) use of inhaled steroids; Z79.899 Other long term (current) drug therapy
CPT/HCPCS: 99285; 96374; 96361 ×9; 36415; 94640 ×2; 93005; 80053; 82550; 82553; 84484; 85025; 81003; 80306; 80320; 71010; J2930

== ENCOUNTER 2017-02-15 08:43 | Inpatient (IN) | payer MEDICARE ==
[2017-02-15] MEDS ORDERED: methylPREDNISolone SOD SUCCI 125 MG/2 ML VIAL IV STA (09:04)
[2017-02-15] MEDS ORDERED: IPRATROPIUM-ALBUTEROL 3 ML NEB INHALATION STA (09:04)
[2017-02-15] MEDS ORDERED: SODIUM CHLORIDE 0.9% 1,000 ML IV STA (09:04)
[2017-02-15 09:50] LABS: CH 29.1; CHCM 30.8; HCT 26.8 % (39.0-53.0); MCH 29.1 pg (25.0-35.0); MCHC 30.8 g/dL (31.0-37.0); MCV 94.8 fL (80.0-100.0); RBC 2.83 m/uL (4.30-5.90); RDW 21.2 % (11.5-15.5); WBC (Perox) 3.89
[2017-02-15 09:51] LABS: Anisocytosis Moderate; Basophils % (A) 0 %; Eosinophils # (A) 0.1 k/uL (0-0.7); Eosinophils % (A) 2 %; HDW 3.37; Hypochromasia Moderate; Luc # (Auto) 0.09; Luc % (Auto) 2; Lymphocytes # (A) 0.9 k/uL (1.0-4.8); Lymphocytes % (A) 23 %; Macrocytosis Slight; Mean Platelet Volume 8.1; Monocytes # (A) 0.2 k/uL (0-1.0); Monocytes % (A) 6 %; Neutrophils # (A) 2.7 k/uL (1.3-7.7); Neutrophils % (A) 68 %
[2017-02-15 09:54] LABS: HGB 8.3 gm/dL (13.0-17.5)
[2017-02-15 10:01] LABS: ALT 38 U/L (21-72); AST 59 U/L (17-59); Alkaline Phosphatase 110 U/L (38-126); Anion Gap 13 mmol/L; Blood Urea Nitrogen <2 mg/dL (9-20); Calcium 7.1 mg/dL (8.4-10.2); Carbon Dioxide 27 mmol/L (22-30); Chloride 102 mmol/L (98-107); Glucose 105 mg/dL (74-99); Magnesium 1.7 mg/dL (1.6-2.3); Non-African American GFR(MDRD) >60 (>60 ml/min/1.73 sqM); Sodium 142 mmol/L (137-145); Total Bilirubin 0.5 mg/dL (0.2-1.3)
[2017-02-15 10:02] LABS: INR 1.1 (<1.2); Partial Thromboplastin Time 27.4 sec (22.0-30.0); Prothrombin Time 11.3 sec (9.0-12.0)
--- NOTE | 2017-02-15 10:10 | ED ---
General Adult HPI - General Chief complaint: Alcohol Stated complaint: ETOH Time Seen by Provider: 02/15/17 08:48 Source: patient, EMS, RN notes reviewed Mode of arrival: EMS Limitations: no limitations - History of Present Illness Initial comments: This a 71-year-old male presents emergency Department chief complaint fall. Patient is rolled off his couch and hit his head. Patient states he is a daily drinker and has been drinking prior to arrival. Patient states that he does have mild headache. He states he normally has chronic back issues. Patient also states that he has COPD and he said increased cough or chest congestion. Patient states he normally is on oxygen 2 L at home. Patient denies chest pain. Denies any palpitations, nausea, vomiting, diarrhea or constipation. Denies any extremity injury. Patient states his tetanus is up-to-date. - Related Data Home Medications Medication Instructions Recorded Confirmed HYDROcodone/APAP 10-325MG [[place] 1 tab PO QID PRN 08/27/13 02/10/17 10-325] Budesonide/Formoterol Fumarate 2 puff INHALATION RT-BID 01/17/16 02/10/17 [Symbicort 160-4.5 Mcg Inhaler] Tamsulosin HCl [Flomax] 0.4 mg PO HS 01/17/16 02/10/17 Albuterol Sulfate [Proair Hfa] 2 puff INHALATION RT-Q6H PRN 09/14/16 02/10/17 Albuterol Nebulized [Ventolin 2.5 mg INHALATION RT-QID PRN 12/13/16 02/10/17 Nebulized] Diphenox-Atrop 2.5-0.025 mg 1 tab PO 5XD PRN 12/13/16 02/10/17 [Lomotil] Ipratropium [place] [Atrovent Hfa] 2 puff INHALATION RT-DAILY 12/13/16 02/10/17 Metoprolol Tartrate [Lopressor] 25 mg PO BID 12/13/16 02/10/17 Pravastatin Sodium [Pravachol] 40 mg PO HS 12/13/16 02/10/17 Previous Rx's Medication Instructions Recorded Ferrous Sulfate [Iron (65 MG 325 mg PO BID-W/MEALS tab 12/16/16 Elemental)] Thiamine [Vitamin B-1] 100 mg PO BID@1200,1700 tab 12/16/16 Famotidine [Pepcid] 20 mg PO BID tab 01/20/17 Lidocaine 5% Patch [Lidoderm 5% 1 patch TOPICAL DAILY #30 patch 01/20/17 Patch] Nicotine 21Mg/24Hr Patch [Habitrol] 1 patch TRANSDERM DAILY patch 01/20/17 Amiodarone [Cordarone] 200 mg PO DAILY #0 02/12/17 Allergies Allergy/AdvReac Type Severity Reaction Status Date / Time cephalexin monohydrate Allergy Rash/Hives Verified 02/10/17 21:10 [From Keflex] Review of Systems ROS Statement: Those systems with pertinent positive or pertinent negative responses have been documented in the HPI. ROS Other: All systems not noted in ROS Statement are negative. 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% and no significant evidence of pulmonary hypertension., history of the urine tremens, cervical and lumbar spondylosis, carpal tunnel disease, chronic atrial fibrillation, hypertension, hyperlipidemia, previous has position for pneumonia as, previous hospitalization for alcohol intoxication and altered mentation, altered CVA as evident on the CAT scan of the head History of Any Multi-Drug Resistant Organisms: None Reported Past Surgical History: Back Surgery, Hernia Repair Additional Past Surgical History / Comment(s): right shoulder, bilateral cataract surgery , UMBILICAL HERNIA KINDNEY STONES REMOVED, HAMMER TOE SX X3, with subsequent amputation of the second great toe on his right foot, pain injections through neurology, colonoscopy Past Anesthesia/Blood Transfusion Reactions: No Reported Reaction Past Psychological History: No Psychological Hx Reported Smoking Status: Current every day smoker Past Alcohol Use History: Daily, Heavy Past Drug Use History: None Reported - Past Family History Father Family Medical History: Diabetes Mellitus Mother History Unknown: Yes Additional Family Medical History / Comment(s): 2001 General Exam Limitations: no limitations General appearance: alert, in no apparent distress Head exam: Present: atraumatic, normocephalic. Absent: normal inspection ( Abrasions noted of the forehead) Eye exam: Present: normal appearance, PERRL, EOMI. Absent: scleral icterus, conjunctival injection, periorbital swelling ENT exam: Present: normal exam, normal oropharynx, mucous membranes moist, TM's normal bilaterally, normal external ear exam Neck exam: Present: normal inspection, full ROM. Absent: tenderness, meningismus, lymphadenopathy Respiratory exam: Present: wheezes, rhonchi. Absent: normal lung sounds bilaterally, respiratory distress, rales, stridor Cardiovascular Exam: Present: regular rate, normal rhythm, normal heart sounds. Absent: systolic murmur, diastolic murmur, rubs, gallop, clicks GI/Abdominal exam: Present: soft, normal bowel sounds. Absent: distended, tenderness, guarding, rebound, rigid Back exam: Present: full ROM. Absent: tenderness, paraspinal tenderness, vertebral tenderness Neurological exam: Present: alert, oriented X3, CN II-XII intact, reflexes normal. Absent: motor sensory deficit Skin exam: Present: warm, dry, intact, normal color. Absent: rash Course Vital Signs 02/15/17 02/15/17 02/15/17 08:50 09:40 09:51 Temperature 97.2 F L Pulse Rate 90 95 82 Respiratory 18 16 16 Rate Blood Pressure 102/53 O2 Sat by Pulse 92 L Oximetry 02/15/17 10:43 Temperature Pulse Rate 91 Respiratory 18 Rate Blood Pressure 100/55 O2 Sat by Pulse 97 Oximetry Medical Decision Making - Lab Data Result diagrams: 02/15/17 09:40 02/15/17 10:05 Lab Results 02/15/17 02/15/17 02/15/17 Range/Units 09:40 09:40 09:40 WBC 4.0 (3.8-10.6) k/uL RBC 2.83 L (4.30-5.90) m/uL Hgb 8.3 L D (13.0-17.5) gm/dL Hct 26.8 L (39.0-53.0) % MCV 94.8 (80.0-100.0) fL MCH 29.1 (25.0-35.0) pg MCHC 30.8 L (31.0-37.0) g/dL RDW 21.2 H (11.5-15.5) % Plt Count 103 L (150-450) k/uL Neutrophils % 68 % Lymphocytes % 23 % Monocytes % 6 % Eosinophils % 2 % Basophils % 0 % Neutrophils # 2.7 (1.3-7.7) k/uL Lymphocytes # 0.9 L (1.0-4.8) k/uL Monocytes # 0.2 (0-1.0) k/uL Eosinophils # 0.1 (0-0.7) k/uL Basophils # 0.0 (0-0.2) k/uL Hypochromasia Moderate Anisocytosis Moderate Macrocytosis Slight PT (9.0-12.0) sec INR (<1.2) APTT (22.0-30.0) sec Sodium 142 (137-145) mmol/L Potassium 2.2 L* (3.5-5.1) mmol/L Chloride 102 (98-107) mmol/L Carbon Dioxide 27 (22-30) mmol/L Anion Gap 13 mmol/L BUN <2 L (9-20) mg/dL Creatinine 0.78 (0.66-1.25) mg/dL Est GFR (MDRD) Af Amer >60 (>60 ml/min/1.73 sqM) Est GFR (MDRD) Non-Af >60 (>60 ml/min/1.73 sqM) Glucose 105 H (74-99) mg/dL Calcium 7.1 L (8.4-10.2) mg/dL Magnesium 1.7 (1.6-2.3) mg/dL Total Bilirubin 0.5 (0.2-1.3) mg/dL AST 59 (17-59) U/L ALT 38 (21-72) U/L Alkaline Phosphatase 110 (38-126) U/L Total Creatine Kinase 155 (55-170) U/L CK-MB (CK-2) 1.8 (0.0-2.4) ng/mL CK-MB (CK-2) Rel Index 1.2 Troponin I <0.012 (0.000-0.034) ng/mL NT-Pro-B Natriuret Pep pg/mL Total Protein 5.0 L (6.3-8.2) g/dL Albumin 2.5 L (3.5-5.0) g/dL Serum Alcohol 294 mg/dL 02/15/17 02/15/17 02/15/17 Range/Units 09:40 09:40 10:05 WBC (3.8-10.6) k/uL RBC (4.30-5.90) m/uL Hgb (13.0-17.5) gm/dL Hct (39.0-53.0) % MCV (80.0-100.0) fL MCH (25.0-35.0) pg MCHC (31.0-37.0) g/dL RDW (11.5-15.5) % Plt Count (150-450) k/uL Neutrophils % % Lymphocytes % % Monocytes % % Eosinophils % % Basophils % % Neutrophils # (1.3-7.7) k/uL Lymphocytes # (1.0-4.8) k/uL Monocytes # (0-1.0) k/uL Eosinophils # (0-0.7) k/uL Basophils # (0-0.2) k/uL Hypochromasia Anisocytosis Macrocytosis PT 11.3 (9.0-12.0) sec INR 1.1 (<1.2) APTT 27.4 (22.0-30.0) sec Sodium (137-145) mmol/L Potassium 2.4 L* (3.5-5.1) mmol/L Chloride (98-107) mmol/L Carbon Dioxide (22-30) mmol/L Anion Gap mmol/L BUN (9-20) mg/dL Creatinine (0.66-1.25) mg/dL Est GFR (MDRD) Af Amer (>60 ml/min/1.73 sqM) Est GFR (MDRD) Non-Af (>60 ml/min/1.73 sqM) Glucose (74-99) mg/dL Calcium (8.4-10.2) mg/dL Magnesium (1.6-2.3) mg/dL Total Bilirubin (0.2-1.3) mg/dL AST (17-59) U/L ALT (21-72) U/L Alkaline Phosphatase (38-126) U/L Total Creatine Kinase (55-170) U/L CK-MB (CK-2) (0.0-2.4) ng/mL CK-MB (CK-2) Rel Index Troponin I (0.000-0.034) ng/mL NT-Pro-B Natriuret Pep 1460 pg/mL Total Protein (6.3-8.2) g/dL Albumin (3.5-5.0) g/dL Serum Alcohol mg/dL Disposition Clinical Impression: Alcohol intoxication, Hypokalemia, COPD exacerbation, Fall, Anemia Disposition: ADMITTED IP TO THIS HOSP Condition: Fair Referrals: Darrick Georges MD [Primary Care Provider] - 1-2 days
[2017-02-15 10:11] LABS: Alcohol 294 mg/dL; Creatine Kinase 155 U/L (55-170); Potassium 2.2 mmol/L (3.5-5.1)
[2017-02-15 10:24] LABS: Creatine Kinase MB 1.8 ng/mL (0.0-2.4); Troponin I <0.012 ng/mL (0.000-0.034)
--- NOTE | 2017-02-15 10:31 | XR ---
EXAMINATION TYPE: XR chest 2V DATE OF EXAM: 02/15/2017 HISTORY: difficulty breathing. REFERENCE: Previous study dated 01/20/2017. FINDINGS: The lungs are overinflated. The lungs are clear. Pleural space are clear. The heart is not enlarged. IMPRESSION: COPD.
[2017-02-15] MEDS ORDERED: LORazepam 2 MG/ML INJ IV PRN ×3 (10:55)
[2017-02-15] MEDS ORDERED: SODIUM CHLORIDE 0.9% 1,000 ML with MVI, ADULT NO.4 WITH VIT K 10 ML, THIAMINE 100 MG, F... IV ONE ×4 (10:55)
--- NOTE | 2017-02-15 11:15 | CT ---
EXAMINATION TYPE: CT brain jake hernandez con DATE OF EXAM: 02/15/2017 COMPARISON: Previous study dated 02/10/2017 HISTORY: ETOH, Fall CT DLP: 1457.60 mGycm Automated exposure control for dose reduction was used. TECHNIQUE: CT scan of the head and cervical spine are performed without contrast. FINDINGS: BRAIN: There is evidence of an old right temporal infarct. This extends up into the posterior right o ccipital lobe. Central structures are midline. There is no evidence of hydrocephalus. No acute focal lesion, mass ef fect or midline shift is seen. I do not see evidence of intracranial blood. There is underlying degen erative change. Visualized portions of the paranasal sinuses and mastoids are clear. No depressed skull fracture is s een. IMPRESSION: 1. 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 2. NO ACUTE INTRACRANIAL ABNORMALITY. 3. DEGENERATIVE CHANGE. CERVICAL SPINE: There are moderately severe emphysematous changes within the visualized portions of t he lungs. Paraspinal soft tissues are otherwise unremarkable. Vertebral body height and alignment are maintained. Atlantoaxial relationships are normal. There is severe disc space loss and hypertrophic spondylosis at C5-6 and C6-7. There is uncovertebral joint disease at these levels. There is facet arthropathy present on the left at C2-3 and bilaterall y at C3-4 and C4-5. No fracture is identified. IMPRESSION: 1. NO ACUTE OSSEOUS LESION. 2. DEGENERATIVE CHANGE. 3. EMPHYSEMATOUS CHANGE.
[2017-02-15] MEDS: POTASSIUM CHLORIDE 10 MEQ, LIDOCAINE 2% INJ 10 MG in SODIUM CHLORIDE 0.9% 100 ML IVPB SCH ×4 (11:18→14:28)
[2017-02-15] MEDS: IPRATROPIUM-ALBUTEROL 3 ML NEB INHALATION SCH ×3 (11:59→19:02)
[2017-02-15] MEDS: methylPREDNISolone SOD SUCCI 125 MG/2 ML VIAL IV SCH ×2 (13:33→17:42)
[2017-02-15 13:54] VITALS: BMI 19.5
[2017-02-15] MEDS ORDERED: HYDROcodone/APAP 10-325MG 1 EACH TAB PO PRN (13:56)
[2017-02-15] MEDS ORDERED: IPRATROPIUM-ALBUTEROL 3 ML NEB INHALATION SCH (14:00)
[2017-02-15] MEDS: AMIODARONE 200 MG TAB PO SCH (14:28)
[2017-02-15] MEDS: NICOTINE 21MG/24HR PATCH TRANSDERM SCH (14:28)
[2017-02-15] MEDS: FAMOTIDINE 20 MG TAB PO SCH ×2 (14:28→20:15)
[2017-02-15] MEDS: METOPROLOL TARTRATE 25 MG TAB PO SCH ×2 (14:28→20:16)
[2017-02-15] MEDS ORDERED: THIAMINE 100 MG TAB PO SCH (17:00)
[2017-02-15 17:10] LABS: Glucose,Whole Blood 290 mg/dL (75-99)
[2017-02-15] MEDS ORDERED: Potassium Replacement Protocol 1 EACH MISC MISCELLANE PRN (17:18)
[2017-02-15] MEDS ORDERED: INSULIN LISPRO (humaLOG) 300 UNIT/3 ML VIAL SQ SCH (17:30)
[2017-02-15] MEDS: THIAMINE 100 MG TAB PO SCH (17:38)
[2017-02-15] MEDS ORDERED: POTASSIUM CHLORIDE ER 20 MEQ TAB.ER PO SCH (18:00)
[2017-02-15] MEDS ORDERED: POTASSIUM CHLORIDE 10 MEQ, LIDOCAINE 2% INJ 10 MG in SODIUM CHLORIDE 0.9% 100 ML IV SCH (18:00)
[2017-02-15] MEDS: POTASSIUM CHLORIDE ER 20 MEQ TAB.ER PO SCH ×2 (18:20→20:15)
[2017-02-15] MEDS ORDERED: NICOTINE 21MG/24HR PATCH TRANSDERM SCH (19:00)
--- NOTE | 2017-02-15 19:34 | HP ---
HISTORY AND PHYSICAL DATE OF ADMISSION: February 15, 2017. PRESENTING COMPLAINT: Fall. HISTORY OF PRESENTING COMPLAINT: This is a 71-year-old patient, well known to me from multiple admissions with rather extensive medical history. Chronic stable medical conditions include hyperlipidemia, hypertension, atrial fibrillation, chronic alcoholism, smoker also recently in the hospital having had fractured right-sided hemothorax,did have a chest tube in place. The patient was just discharged from the hospital. The patient has continued to drink about a pint of liquor every day and continues to smoke. The patient yet again fell at home. Decided to call 911. The patient has a lady living upstairs who pretty much helps out with things. Hence patient admitted to the hospital. Patient then felt dizzy, lightheaded and then fell down. REVIEW OF SYSTEMS: Constitutional: Tired. HEENT none. Respiratory: Baseline cough and wheezing. Cardiovascular: None. Gastrointestinal: None. Genitourinary: None. MUSCULOSKELETAL: Pain in different joints. Dermatological: Some bruising. Lymphatics none. Psychiatry: Anxiety. Neurological no focal weakness. PAST MEDICAL HISTORY: Atrial fibrillation. Cardiomyopathy, COPD, hypertension, hyperlipidemia, cervical lumbar spondylosis, carpal tunnel disease, hemothorax, with recurrent rib fractures, alcoholic, cardiomyopathy. PAST SURGICAL HISTORY: Back surgery, hernia repair, right shoulder surgery, bilateral cataract surgery, umbilical hernia repair. Kidney stones removed, hammertoe times three amputation of the second toe on the right, chest tube for hemothorax. SOCIAL HISTORY: The patient lives with a friend Bekah Juárez who lives upstairs. The patient does drink a fifth of vodka pretty much daily and smoking. FAMILY HISTORY: Diabetes. HOME MEDICATIONS: 1. Thiamine 100 mg p.o. b.i.d. 2. Flomax 0.4 mg q.h.s. 3. Pravachol 40 mg q.h.s. 4. Lopressor 25 mg b.i.d. 5. Lidoderm 5% patch daily. 6. Atrovent 2 puffs daily. [place] 10 1 tab q.i.d. p.r.n. 7. Iron 325 mg b.i.d. 8. Pepcid 20 mg b.i.d. 9. Lomotil 1 tablet 5 times a day p.r.n. 10.Symbicort 160/4.5, 2 puffs b.i.d. 11.Cordarone 200 mg p.o. daily. 12.ProAir 2 puffs q.6h p.r.n. 13.Ventolin 2.5 inhalation q.i.d. p.r.n. ALLERGIES: TO KEFLEX, RASH. PHYSICAL EXAMINATION: Temperature 97.2, pulse 85, respiratory rate 15, blood pressure 111/59, pulse ox 100% on 3 L. General appearance: Unkempt, sitting up, actually eating his meal. Eyes pupils equal. Conjunctivae normal. HEENT external appearance of oral cavity missing dentition. Neck JVD not raised. Mass not palpable. Respiratory effort is lungs decreased breath sounds. Occasional wheezing. Cardiovascular first and second sounds normal. No edema. ABDOMEN: Soft, nontender. Liver and spleen not palpable. Lymphatics No lymph nodes palpable in the neck and axillae. PSYCHIATRY: Awake, answering questions appropriately. Tired a bit. Neurological: Pupils equal. Cranial nerves grossly intact. Power and sensation grossly intact. Some bruising is present. INVESTIGATIONS: White count 4, hemoglobin 8.3, platelets 103, potassium 2.2. ASSESSMENT: 1. Fall from severe hypokalemia. 2. Hypoalbuminemia, probably from mild protein-calorie malnutrition. 3. Acute alcohol intoxication. Patient alcohol level was 294. 4. Normocytic anemia likely nutrition. 5. Thrombocytopenia from chronic alcoholism nutritional. 6. Persistent atrial fibrillation. Patient not a candidate for anticoagulation because of falls and alcoholism. 7. Chronic obstructive pulmonary disease in an active smoker. 8. Chronic hypoxic respiratory failure from underlying chronic obstructive pulmonary disease on home oxygen. 9. Hyperlipidemia. 10.Essential hypertension. 11.Hypertensive heart disease. Moderate concentric left ventricular hypertrophy. 12.Chronic nicotine dependence. 13.Chronic congestive heart failure from systolic dysfunction, ejection fraction 45%. 14.Alcoholic cardiomyopathy. PLAN: Patient yet again was counseled against smoking and alcohol. Put the patient on nicotine patch. Put the patient on fall precautions. Gave the patient small dose of Valium for DVT prophylaxis. We will also give patient breathing treatments. MMODL / IJN: [id number] /
[2017-02-15] MEDS: DIAZEPAM 2 MG TAB PO SCH (20:15)
[2017-02-15] MEDS ORDERED: PRAVASTATIN SODIUM 40 MG TAB PO SCH (21:00)
[2017-02-15] MEDS ORDERED: TAMSULOSIN 0.4 MG CAP.ER.24H PO SCH (21:00)
[2017-02-15 21:18] LABS: Hemoglobin A1C 4.5 % (4.2-6.1)
[2017-02-16] MEDS: IPRATROPIUM-ALBUTEROL 3 ML NEB INHALATION SCH ×3 (07:19→15:59)
[2017-02-16 07:20] LABS: Glucose,Whole Blood 138 mg/dL (75-99)
[2017-02-16] MEDS: NICOTINE 21MG/24HR PATCH TRANSDERM SCH (08:12)
[2017-02-16] MEDS: FAMOTIDINE 20 MG TAB PO SCH (08:13)
[2017-02-16] MEDS: METOPROLOL TARTRATE 25 MG TAB PO SCH (08:13)
[2017-02-16] MEDS: AMIODARONE 200 MG TAB PO SCH (08:13)
[2017-02-16 08:21] LABS: Magnesium 1.4 mg/dL (1.6-2.3); Potassium 3.5 mmol/L (3.5-5.1)
[2017-02-16] MEDS: DIAZEPAM 2 MG TAB PO SCH ×2 (08:24→15:31)
[2017-02-16] MEDS ORDERED: LIDOCAINE 5% PATCH TOPICAL SCH (09:00)
[2017-02-16 11:53] LABS: Glucose,Whole Blood 121 mg/dL (75-99)
[2017-02-16] MEDS: THIAMINE 100 MG TAB PO SCH (12:53)
[2017-02-16 15:24] VITALS: BP 118/62; RESP 16; TEMP 97.4
[2017-02-16 16:10] VITALS: PULSE 80
[2017-02-16] MEDS ORDERED: MAGNESIUM OXIDE 400 MG TAB PO SCH (21:00)
--- NOTE | 2017-02-17 05:23 | DS ---
DISCHARGE SUMMARY DATE OF ADMISSION: 02/15/2017 DATE OF DISCHARGE: 02/16/2017 FINAL DIAGNOSIS: 1. Severe hypokalemia leading to fall. 2. Hypoalbuminemia, probably from mild protein-calorie malnutrition. 3. Acute alcohol intoxication. The level being 294 on presentation. 4. Normocytic anemia likely nutritional. 5. Thrombocytopenia from chronic alcoholism. 6. Persistent atrial fibrillation. Patient not a candidate for anticoagulation because of falls and alcohol. 7. Chronic obstructive pulmonary disease in a active smoker. 8. Chronic hypoxic respiratory failure from underlying chronic obstructive pulmonary disease on home oxygen. 9. Hyperlipidemia. 10.Essential hypertension. 11.Hypertensive heart disease with moderate concentric left ventricular hypertrophy. 12.Chronic nicotine dependence. 13.Chronic congestive heart failure from systolic dysfunction, ejection fraction 45% from alcoholic cardiomyopathy. HOSPITAL COURSE: This patient again yet again presented intoxicated. Also found to be hypokalemic. The patient's potassium did come up to 3.5. The patient yet again counseled against smoking and alcohol. The patient was back to his baseline. ON EXAMINATION: LUNGS: Decreased breath sounds. Awake answering questions. Keen to go back home. The patient does have a walker and has a lady who lives upstairs and he states his front door is always left open. Cab is being arranged. DISCHARGE MEDICATIONS: 1. [place] 10 one tablet q.i.d. p.r.n. 2. Symbicort 160/4.5 two puffs b.i.d. 3. Flomax 0.4 mg p.o. q.h.s. 4. ProAir 2 puffs q.6 p.r.n. 5. Ventolin nebulizer 2.5 q.i.d. p.r.n. 6. Lomotil 1 tab p.o. five times a day p.r.n. 7. Atrovent HFA 2 puffs daily. 8. Lopressor 25 p.o. b.i.d. 9. Pravachol 40 mg p.o. q.h.s. 10.Elemental 325 p.o. b.i.d. with meals. 11.Thiamine 100 mg p.o. b.i.d. 12.Pepcid 20 mg p.o. b.i.d. 13.Lidoderm 5% patch topical daily. 14.Cordarone 200 mg p.o. daily. 15.Magnesium oxide 400 mg p.o. b.i.d. 16.Nicotine 21 mg patch. Follow up with Dr. Georges in 1 or 2 days. MMODL / IJN: [id number] /
== END 2017-02-16 17:26 | disposition home or self-care (01) | DRG 641 ==
LOC: EC 08:43 → 4MS4W 10:52
PROVIDERS: ADMIT Hospitalist; ATTEND Hospitalist
DX: E87.6 Hypokalemia (principal); J96.11 Chronic respiratory failure with hypoxia; I42.6 Alcoholic cardiomyopathy; D69.6 Thrombocytopenia, unspecified; E44.1 Mild protein-calorie malnutrition; I11.0 Hypertensive heart disease with heart failure; I50.22 Chronic systolic (congestive) heart failure; I48.1 Persistent atrial fibrillation; F10.288 Alcohol dependence with other alcohol-induced disorder; F10.229 Alcohol dependence with intoxication, unspecified; Y90.8 Blood alcohol level of 240 mg/100 ml or more; D64.9 Anemia, unspecified; J44.9 Chronic obstructive pulmonary disease, unspecified; F17.200 Nicotine dependence, unspecified, uncomplicated; E78.5 Hyperlipidemia, unspecified; M48.061 Spinal stenosis, lumbar region without neurogenic claudication; I48.2 Chronic atrial fibrillation; M48.02 Spinal stenosis, cervical region; W08.XXXA Fall from other furniture, initial encounter; Z79.899 Other long term (current) drug therapy; Z68.20 Body mass index [BMI] 20.0-20.9, adult; Z99.81 Dependence on supplemental oxygen; Z79.51 Long term (current) use of inhaled steroids; Z87.01 Personal history of pneumonia (recurrent); Z87.19 Personal history of other diseases of the digestive system; Z89.421 Acquired absence of other right toe(s); Z83.3 Family history of diabetes mellitus; Z87.442 Personal history of urinary calculi; Z98.41 Cataract extraction status, right eye; Z98.42 Cataract extraction status, left eye; Z86.73 Personal history of transient ischemic attack (TIA), and cerebral infarction without residual deficits
CPT/HCPCS: 36415; 70450; 71020; 72125; 80053; 80320; 82550; 82553; 83036; 83735; 83880; 84132; 84484; 85025; 85610; 85730; 87324; 93005; 94640; 94760; 96361; 96365; 96366; 96367; 96368; 96375; 96376; 99285

== ENCOUNTER 2017-04-12 21:21 | Emergency (ER) | payer MEDICARE ==
[2017-04-12 23:14] VITALS: RESP 18
--- NOTE | 2017-04-12 23:47 | ED ---
Alcohol HPI <Douglas Templeton - Last Filed: 04/14/17 10:03> - General Source: EMS Mode of arrival: EMS Limitations: no limitations - History of Present Illness MD Complaint: alcohol intoxication Last Drink: unknown Previous Visits for Alcohol Intoxication?: Yes Recent Trauma: No Chronic Alcohol Use: Yes <Augustin Madera - Last Filed: 04/23/17 21:48> - General Chief Complaint: Shortness of Breath Stated Complaint: ETOH Time Seen by Provider: 04/12/17 21:34 - History of Present Illness Initial Comments: This patient is a 71-year-old man who is well-known this department, brought by EMS with complaint of intoxication. The patient also requested a breathing treatment. (Augustin Madera) - Related Data Home Medications Medication Instructions Recorded Confirmed Budesonide/Formoterol Fumarate 2 puff INHALATION RT-BID 01/17/16 04/14/17 [Symbicort 160-4.5 Mcg Inhaler] Tamsulosin HCl [Flomax] 0.4 mg PO HS 01/17/16 04/14/17 Albuterol Sulfate [Proair Hfa] 2 puff INHALATION RT-Q6H PRN 09/14/16 04/14/17 Ipratropium [place] [Atrovent Hfa] 2 puff INHALATION RT-BID 12/13/16 04/14/17 Metoprolol Tartrate [Lopressor] 25 mg PO BID 12/13/16 04/14/17 Pravastatin Sodium [Pravachol] 40 mg PO HS 12/13/16 04/14/17 Aspirin [Adult Low Dose Aspirin EC] 81 mg PO DAILY 03/28/17 04/14/17 Rivaroxaban [Xarelto] 20 mg PO DAILY 03/28/17 04/14/17 Diphenoxylate HCl/Atropine 1 tab PO QID PRN 04/13/17 04/14/17 [Lomotil 2.5-0.025 mg Tablet] HYDROcodone/APAP 10-325MG [[place] 1 tab PO Q6H PRN 04/13/17 04/14/17 10-325] Previous Rx's Medication Instructions Recorded Nicotine 14Mg/24Hr Patch [Habitrol] 1 patch TRANSDERM DAILY #14 patch 03/31/17 Thiamine [Vitamin B-1] 100 mg PO BID@1200,1700 tab 03/31/17 predniSONE 20 mg PO BID #10 tab 04/13/17 Allergies Allergy/AdvReac Type Severity Reaction Status Date / Time cephalexin monohydrate Allergy Rash/Hives Verified 04/14/17 10:05 [From Keflex] Review of Systems ROS Other: All systems not noted in ROS Statement are negative. <Douglas Templeton - Last Filed: 04/14/17 10:03> ROS Other: All systems not noted in ROS Statement are negative. Constitutional: Denies: fever, chills Respiratory: Reports: cough, dyspnea, wheezes Cardiovascular: Denies: chest pain, palpitations, orthopnea, edema, syncope Gastrointestinal: Denies: abdominal pain, vomiting, melena, hematochezia Musculoskeletal: Denies: back pain Skin: Denies: rash Neurological: Denies: headache, weakness <Augustin Madera - Last Filed: 04/23/17 21:48> ROS Statement: Those systems with pertinent positive or pertinent negative responses have been documented in the HPI. 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 History of Any Multi-Drug Resistant Organisms: None Reported Past Surgical History: Back Surgery, Hernia Repair Additional Past Surgical History / Comment(s): right shoulder surgery, bilateral cataract surgery, umbilical hernia surgery, kidney stones removal, hammer toe surgery X3 with subsequent amputation of the second toe on right foot , pain injections through neurology, colonoscopy Past Anesthesia/Blood Transfusion Reactions: No Reported Reaction Past Psychological History: No Psychological Hx Reported Smoking Status: Current some day smoker Past Alcohol Use History: Daily Past Drug Use History: None Reported - Past Family History Father Family Medical History: Diabetes Mellitus Mother History Unknown: Yes Additional Family Medical History / Comment(s): 2001 <Augustin Madera - Last Filed: 04/23/17 21:48> General Exam Limitations: no limitations General appearance: alert, in no apparent distress, appears intoxicated Head exam: Present: atraumatic, normocephalic Eye exam: Present: normal appearance. Absent: scleral icterus, conjunctival injection Neck exam: Present: normal inspection, full ROM Respiratory exam: Present: wheezes. Absent: respiratory distress, rales, rhonchi, stridor, accessory muscle use, decreased breath sounds, prolonged expiratory Cardiovascular Exam: Present: normal rhythm, tachycardia, normal heart sounds. Absent: systolic murmur, diastolic murmur, rubs, gallop GI/Abdominal exam: Present: soft. Absent: distended, tenderness, guarding, rebound, rigid Extremities exam: Present: normal inspection, normal capillary refill. Absent: pedal edema, calf tenderness Back exam: Present: normal inspection. Absent: CVA tenderness (R), CVA tenderness (L) Neurological exam: Present: alert Skin exam: Present: warm, dry, intact, normal color. Absent: rash <Augustin Madera - Last Filed: 04/23/17 21:48> Vital Signs 04/12/17 04/12/17 04/12/17 21:22 21:35 23:14 Temperature 97.4 F L Pulse Rate 113 H 83 Respiratory 16 16 18 Rate Blood Pressure 135/63 117/63 O2 Sat by Pulse 98 98 Oximetry 04/13/17 00:22 Temperature 98.8 F Pulse Rate 99 Respiratory 18 Rate Blood Pressure 148/80 O2 Sat by Pulse 97 Oximetry Medical Decision Making <Douglas Templeton - Last Filed: 04/14/17 10:03> <Augustin Madera - Last Filed: 04/23/17 21:48> - Medical Decision Making This patient is a 71-year-old man with history of COPD and also chronic alcohol use. He is well-known this department. The patient's respiratory status appears stable. Compared with previous visits he is not having much of a flareup of his COPD. He has observe resting on the stretcher and is not in any distress. The patient is observed in the department and also observed taking oral intake which he tolerated. (Augustin Madera) Disposition <Douglas Templeton - Last Filed: 04/14/17 10:03> <Augustin Madera - Last Filed: 04/23/17 21:48> Clinical Impression: Alcohol intoxication, COPD (chronic obstructive pulmonary disease) Disposition: HOME SELF-CARE Condition: Poor Instructions: COPD (Chronic Obstructive Pulmonary Disease) (ED), Alcohol Intoxication (ED) Referrals: Darrick Georges MD [Primary Care Provider] - 1-2 days
[2017-04-13 00:24] VITALS: BP 148/80; PULSE 99; TEMP 98.8
== END 2017-04-13 00:24 | disposition home or self-care (01) ==
LOC: EC 21:21
DX: F10.129 Alcohol abuse with intoxication, unspecified (principal); J44.9 Chronic obstructive pulmonary disease, unspecified; I48.91 Unspecified atrial fibrillation; I11.0 Hypertensive heart disease with heart failure; I50.9 Heart failure, unspecified; E78.5 Hyperlipidemia, unspecified; F17.200 Nicotine dependence, unspecified, uncomplicated; Z86.73 Personal history of transient ischemic attack (TIA), and cerebral infarction without residual deficits; Z88.1 Allergy status to other antibiotic agents; Z79.51 Long term (current) use of inhaled steroids; Z79.82 Long term (current) use of aspirin; Z79.01 Long term (current) use of anticoagulants; Z87.01 Personal history of pneumonia (recurrent); Z79.899 Other long term (current) drug therapy
CPT/HCPCS: 82075; 93005; 94640; 99285

== ENCOUNTER 2017-04-14 09:39 | Emergency (ER) | payer MEDICARE ==
[2017-04-14 09:46] VITALS: TEMP 97
--- NOTE | 2017-04-14 10:02 | ED ---
Alcohol HPI - General Chief Complaint: Alcohol Stated Complaint: Alcohol Time Seen by Provider: 04/14/17 09:44 Source: EMS Mode of arrival: EMS Limitations: altered mental status - History of Present Illness Initial Comments: This is a 71-year-old male with a history of chronic alcoholism who drinks approximately 1/5 a day. He states that he slipped off of his couch onto the floor. Ambulance was called to help him get up off of the floor. The patient states he never wanted come emergency department. However when the ambulance arrived he was found on the ground surrounded by vodka bottles and thus it was decided to bring the emergency department. The patient states he did not hit his head or lose consciousness. He states that he feels fine and has no injuries. He states he never wanted to come the emergency department and just wants to go home. He denies any shortness of breath or chest pain. No abdominal pain. No headache. No other complaint points. - Related Data Home Medications Medication Instructions Recorded Confirmed Budesonide/Formoterol Fumarate 2 puff INHALATION RT-BID 01/17/16 04/14/17 [Symbicort 160-4.5 Mcg Inhaler] Tamsulosin HCl [Flomax] 0.4 mg PO HS 01/17/16 04/14/17 Albuterol Sulfate [Proair Hfa] 2 puff INHALATION RT-Q6H PRN 09/14/16 04/14/17 Ipratropium [place] [Atrovent Hfa] 2 puff INHALATION RT-BID 12/13/16 04/14/17 Metoprolol Tartrate [Lopressor] 25 mg PO BID 12/13/16 04/14/17 Pravastatin Sodium [Pravachol] 40 mg PO HS 12/13/16 04/14/17 Aspirin [Adult Low Dose Aspirin EC] 81 mg PO DAILY 03/28/17 04/14/17 Rivaroxaban [Xarelto] 20 mg PO DAILY 03/28/17 04/14/17 Diphenoxylate HCl/Atropine 1 tab PO QID PRN 04/13/17 04/14/17 [Lomotil 2.5-0.025 mg Tablet] HYDROcodone/APAP 10-325MG [[place] 1 tab PO Q6H PRN 04/13/17 04/14/17 10-325] Previous Rx's Medication Instructions Recorded Nicotine 14Mg/24Hr Patch [Habitrol] 1 patch TRANSDERM DAILY #14 patch 03/31/17 Thiamine [Vitamin B-1] 100 mg PO BID@1200,1700 tab 03/31/17 predniSONE 20 mg PO BID #10 tab 04/13/17 Allergies Allergy/AdvReac Type Severity Reaction Status Date / Time cephalexin monohydrate Allergy Rash/Hives Verified 04/14/17 10:05 [From Keflex] Review of Systems ROS Statement: Those systems with pertinent positive or pertinent negative responses have been documented in the HPI. ROS Other: All systems not noted in ROS Statement are negative. 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 History of Any Multi-Drug Resistant Organisms: None Reported Past Surgical History: Back Surgery, Hernia Repair Additional Past Surgical History / Comment(s): right shoulder surgery, bilateral cataract surgery, umbilical hernia surgery, kidney stones removal, hammer toe surgery X3 with subsequent amputation of the second toe on right foot , pain injections through neurology, colonoscopy Past Anesthesia/Blood Transfusion Reactions: No Reported Reaction Past Psychological History: No Psychological Hx Reported Smoking Status: Current some day smoker Past Alcohol Use History: Daily Past Drug Use History: None Reported - Past Family History Father Family Medical History: Diabetes Mellitus Mother History Unknown: Yes Additional Family Medical History / Comment(s): 2001 General Exam - General Exam Comments Initial Comments: Constitutional: Awake alert Appears comfortable Head: Normocephalic atraumatic , no obvious signs of head trauma Eyes: no conjunctival injection No scleral icterus EOMI, pupils are 4 mm and reactive bilaterally Neck: No JVD Supple Heart: Regular rate rhythm normal S1-S2 no murmurs Lungs: Clear to auscultation bilaterally No wheezing No rales Abdomen: Soft nondistended nontender Extremities: Non edematous DP pulses intact Radial pulses intact Neuro: A&Ox3 No focal neurologic deficits Psych: Appropriate mood and affect Limitations: altered mental status Course Vital Signs 04/14/17 04/14/17 04/14/17 09:42 11:05 12:47 Temperature 97 F L Pulse Rate 89 89 72 Respiratory 18 20 18 Rate Blood Pressure 116/55 132/61 157/78 O2 Sat by Pulse 96 99 95 Oximetry Medical Decision Making - Medical Decision Making Is a 71-year-old male who presents emergency department for alcohol intoxication. The patient was monitored for sobriety. He was able to get up and walk to the bathroom multiple times. Had no complaints. No evidence for trauma. Patient is okay to go home and would like to go home. Disposition Clinical Impression: Alcohol intoxication Disposition: HOME SELF-CARE Condition: Stable Instructions: Alcohol Intoxication (ED) Referrals: Darrick Georges MD [Primary Care Provider] - 1-2 days
[2017-04-14 12:49] VITALS: BP 157/78; PULSE 72; RESP 18
== END 2017-04-14 12:49 | disposition home or self-care (01) ==
LOC: EC 09:39
DX: F10.229 Alcohol dependence with intoxication, unspecified (principal); I48.91 Unspecified atrial fibrillation; J44.9 Chronic obstructive pulmonary disease, unspecified; I10 Essential (primary) hypertension; E78.5 Hyperlipidemia, unspecified; I50.9 Heart failure, unspecified; F17.200 Nicotine dependence, unspecified, uncomplicated; Z88.1 Allergy status to other antibiotic agents; Z79.51 Long term (current) use of inhaled steroids; Z79.82 Long term (current) use of aspirin; Z79.01 Long term (current) use of anticoagulants; Z79.899 Other long term (current) drug therapy
CPT/HCPCS: 82075; 99284

== ENCOUNTER 2017-05-19 23:51 | Emergency (ER) | payer MEDICARE ==
--- NOTE | 2017-05-20 01:01 | ED ---
General Adult HPI - General Chief complaint: Shortness of Breath Stated complaint: RAFIQ Time Seen by Provider: 05/20/17 00:25 Source: EMS Mode of arrival: EMS Limitations: altered mental status - History of Present Illness Initial comments: this patient is a 71-year-old man brought by EMS for evaluation. EMS had reportedly been called out to the patient's residence twice to help lift him after falling. The patient does admit to drinking today and states that he did fall but he denies hitting his head. He is also denying any pain related to the falls. The patient's when I see him is denying shortness of breath. He does acknowledge chronic cough. -: hour(s) Associated Symptoms: denies other symptoms - Related Data Home Medications Medication Instructions Recorded Confirmed Budesonide/Formoterol Fumarate 2 puff INHALATION RT-BID 01/17/16 04/14/17 [Symbicort 160-4.5 Mcg Inhaler] Tamsulosin HCl [Flomax] 0.4 mg PO HS 01/17/16 04/14/17 Albuterol Sulfate [Proair Hfa] 2 puff INHALATION RT-Q6H PRN 09/14/16 04/14/17 Ipratropium [place] [Atrovent Hfa] 2 puff INHALATION RT-BID 12/13/16 04/14/17 Metoprolol Tartrate [Lopressor] 25 mg PO BID 12/13/16 04/14/17 Pravastatin Sodium [Pravachol] 40 mg PO HS 12/13/16 04/14/17 Aspirin [Adult Low Dose Aspirin EC] 81 mg PO DAILY 03/28/17 04/14/17 Rivaroxaban [Xarelto] 20 mg PO DAILY 03/28/17 04/14/17 Diphenoxylate HCl/Atropine 1 tab PO QID PRN 04/13/17 04/14/17 [Lomotil 2.5-0.025 mg Tablet] HYDROcodone/APAP 10-325MG [[place] 1 tab PO Q6H PRN 04/13/17 04/14/17 10-325] Previous Rx's Medication Instructions Recorded Nicotine 14Mg/24Hr Patch [Habitrol] 1 patch TRANSDERM DAILY #14 patch 03/31/17 Thiamine [Vitamin B-1] 100 mg PO BID@1200,1700 tab 12/04/17 predniSONE 20 mg PO BID #10 tab 04/13/17 Allergies Allergy/AdvReac Type Severity Reaction Status Date / Time cephalexin monohydrate Allergy Rash/Hives Verified 05/19/17 23:54 [From Keflex] Review of Systems ROS Statement: Those systems with pertinent positive or pertinent negative responses have been documented in the HPI. ROS Other: All systems not noted in ROS Statement are negative. Constitutional: Denies: fever Respiratory: Reports: cough. 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 History of Any Multi-Drug Resistant Organisms: None Reported Past Surgical History: Back Surgery, Hernia Repair Additional Past Surgical History / Comment(s): right shoulder surgery, bilateral cataract surgery, umbilical hernia surgery, kidney stones removal, hammer toe surgery X3 with subsequent amputation of the second toe on right foot , pain injections through neurology, colonoscopy Past Anesthesia/Blood Transfusion Reactions: No Reported Reaction Past Psychological History: No Psychological Hx Reported Smoking Status: Current some day smoker Past Alcohol Use History: Daily Past Drug Use History: None Reported - Past Family History Father Family Medical History: Diabetes Mellitus Mother History Unknown: Yes Additional Family Medical History / Comment(s): 2001 General Exam Limitations: altered mental status General appearance: alert, in no apparent distress, appears intoxicated, other ( patient appears to be sleeping when I enter the room but does arouse to voice and then is alert.) Head exam: Present: atraumatic, normocephalic, normal inspection Eye exam: Present: normal appearance, PERRL, EOMI, nystagmus. Absent: scleral icterus, conjunctival injection Neck exam: Present: normal inspection, full ROM. Absent: tenderness Respiratory exam: Present: wheezes (there is mild expiratory wheeze), rhonchi. Absent: respiratory distress, rales, stridor, chest wall tenderness, accessory muscle use, decreased breath sounds, prolonged expiratory Cardiovascular Exam: Present: regular rate, normal rhythm, normal heart sounds. Absent: systolic murmur, diastolic murmur, rubs, gallop GI/Abdominal exam: Present: soft. Absent: distended, tenderness, guarding, rebound Extremities exam: Present: normal inspection, normal capillary refill. Absent: pedal edema, calf tenderness Back exam: Present: normal inspection. Absent: CVA tenderness (R), CVA tenderness (L) Neurological exam: Present: alert Skin exam: Present: warm, dry, intact, normal color. Absent: rash Course Vital Signs 05/19/17 05/20/17 05/20/17 23:54 00:12 02:30 Temperature 98.2 F Pulse Rate 97 81 Respiratory 20 20 18 Rate Blood Pressure 112/57 101/51 O2 Sat by Pulse 94 L 96 Oximetry Disposition Clinical Impression: Fall, Acute alcohol intoxication Disposition: HOME SELF-CARE Condition: Fair Instructions: Fall Prevention (ED), Alcohol Intoxication (ED) Referrals: Darrick Georges MD [Primary Care Provider] - 1-2 days
--- NOTE | 2017-05-20 01:45 | CT ---
EXAMINATION TYPE: CT brain wo con DATE OF EXAM: 05/20/2017 COMPARISON: 02/15/2017 HISTORY: AMS CT DLP: 1116.00 mGycm Automated exposure control for dose reduction was used. FINDINGS: There is hypodensity throughout the right anterior temporal lobe extending into the right parietal lo be consistent with old infarct. There is no mass effect nor midline shift. There is no sign of intrac ranial hemorrhage. There is cerebral cortical atrophy. The calvarium is intact. There is some mucosal thickening in the left maxillary sinus. 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 NO ACUTE INTRACRANIAL ABNORMALITY. CEREBRAL ATROPHY. NO CECI NGE.
[2017-05-20 03:16] VITALS: BP 130/56; PULSE 91; RESP 20; TEMP 97.3
== END 2017-05-20 03:56 | disposition home or self-care (01) ==
LOC: EC 23:51 → SUPCPDRO 23:51 → EC 05-20 03:56
DX: F10.129 Alcohol abuse with intoxication, unspecified (principal); R41.82 Altered mental status, unspecified; H55.00 Unspecified nystagmus; R06.2 Wheezing; E78.5 Hyperlipidemia, unspecified; I48.2 Chronic atrial fibrillation; I11.0 Hypertensive heart disease with heart failure; I50.9 Heart failure, unspecified; J44.9 Chronic obstructive pulmonary disease, unspecified; M47.812 Spondylosis without myelopathy or radiculopathy, cervical region; M47.816 Spondylosis without myelopathy or radiculopathy, lumbar region; F17.200 Nicotine dependence, unspecified, uncomplicated; Z79.01 Long term (current) use of anticoagulants; Z79.51 Long term (current) use of inhaled steroids; Z79.82 Long term (current) use of aspirin; Z79.899 Other long term (current) drug therapy; Z88.1 Allergy status to other antibiotic agents; Z86.79 Personal history of other diseases of the circulatory system; W19.XXXA Unspecified fall, initial encounter
CPT/HCPCS: 70450; 82075; 99285

== ENCOUNTER 2017-05-24 17:06 | Emergency (ER) | payer MEDICARE ==
[2017-05-24] MEDS ORDERED: methylPREDNISolone SOD SUCCI 125 MG/2 ML VIAL IV STA (17:18)
[2017-05-24] MEDS ORDERED: IPRATROPIUM-ALBUTEROL 3 ML NEB INHALATION STA (17:18)
[2017-05-24 17:23] VITALS: RESP 18
--- NOTE | 2017-05-24 17:34 | ED ---
General Adult HPI - General Chief complaint: Shortness of Breath Stated complaint: RAFIQ Time Seen by Provider: 05/24/17 17:10 Source: patient, EMS, RN notes reviewed Mode of arrival: EMS Limitations: no limitations - History of Present Illness Initial comments: 71 yo male presents to the emergency department with a chief complaint of shortness of breath. He does have a history of COPD. He states that he is currently an smoker as well. He states he wears oxygen at home at 3 L. He states he felt more short of breath today. He states he uses breathing treatments which did help but he was still concerned. He states that at this time he is feeling better after the breathing treatment by EMS. He states that there has been no fever. He states he has had a cough with some right white sputum production. He states this is much like a typical COPD exacerbation for him. He denies any other symptoms at this time. Denies any abdominal pain. Patient denies any recent fever, chills, chest pain, back pain, abdominal pain, nausea vomiting, numbness or tingling, dysuria or hematuria, constipation or diarrhea, headaches or visual changes, or any other current symptoms. - Related Data Home Medications Medication Instructions Recorded Confirmed Budesonide/Formoterol Fumarate 2 puff INHALATION RT-BID 01/17/16 05/24/17 [Symbicort 160-4.5 Mcg Inhaler] Tamsulosin HCl [Flomax] 0.4 mg PO HS 01/17/16 05/24/17 Albuterol Sulfate [Proair Hfa] 2 puff INHALATION RT-Q6H PRN 09/14/16 05/24/17 Ipratropium [place] [Atrovent Hfa] 2 puff INHALATION RT-BID 12/13/16 05/24/17 Metoprolol Tartrate [Lopressor] 25 mg PO BID 12/13/16 05/24/17 Pravastatin Sodium [Pravachol] 40 mg PO HS 12/13/16 05/24/17 Aspirin [Adult Low Dose Aspirin EC] 81 mg PO DAILY 03/28/17 05/20/17 Rivaroxaban [Xarelto] 20 mg PO DAILY 03/28/17 05/24/17 Diphenoxylate HCl/Atropine 1 tab PO QID PRN 04/13/17 05/24/17 [Lomotil 2.5-0.025 mg Tablet] HYDROcodone/APAP 10-325MG [[place] 1 tab PO Q6H PRN 04/13/17 05/24/17 10-325] Previous Rx's Medication Instructions Recorded Thiamine [Vitamin B-1] 100 mg PO BID@1200,1700 tab 03/31/17 Allergies Allergy/AdvReac Type Severity Reaction Status Date / Time cephalexin monohydrate Allergy Rash/Hives Verified 05/19/17 23:54 [From Keflex] Review of Systems ROS Statement: Those systems with pertinent positive or pertinent negative responses have been documented in the HPI. ROS Other: All systems not noted in ROS Statement are negative. 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 History of Any Multi-Drug Resistant Organisms: None Reported Past Surgical History: Back Surgery, Hernia Repair Additional Past Surgical History / Comment(s): right shoulder surgery, bilateral cataract surgery, umbilical hernia surgery, kidney stones removal, hammer toe surgery X3 with subsequent amputation of the second toe on right foot , pain injections through neurology, colonoscopy Past Anesthesia/Blood Transfusion Reactions: No Reported Reaction Past Psychological History: No Psychological Hx Reported Smoking Status: Current every day smoker Past Alcohol Use History: Daily Past Drug Use History: None Reported - Past Family History Father Family Medical History: Diabetes Mellitus Mother History Unknown: Yes Additional Family Medical History / Comment(s): 2001 General Exam - General Exam Comments Initial Comments: General: The patient is awake and alert, in no distress, and does not appear acutely ill. Eye: Pupils are equal, round and reactive to light, extra-ocular movements are intact; there is normal conjunctiva bilaterally. No signs of icterus. Ears, nose, mouth and throat: There are moist mucous membranes. Neck: The neck is supple, there is no tenderness. Cardiovascular: There is a regular rate and rhythm. No murmur, rub or gallop is appreciated. Respiratory: Lungs are clear to auscultation, respirations are non-labored, breath sounds are equal. Minimal wheezes, no stridor, rales, or rhonchi. Gastrointestinal: Soft, non-distended, non-tender abdomen without masses or organomegaly noted. There is no rebound or guarding present. No CVA tenderness. Bowel sounds are unremarkable. Back: There is no tenderness to palpation in the midline. There is no obvious deformity. No rashes noted. Musculoskeletal: Normal ROM, no tenderness, There is no pedal edema. There is no calf tenderness or swelling. Sensation intact. Pulses equal bilaterally 2+. Neurological: CN II-XII intact, There are no obvious motor or sensory deficits. Coordination appears grossly intact. Speech is normal. Skin: Skin is warm and dry and no rashes or lesions are noted. Psychiatric: Cooperative, appropriate mood & affect, normal judgment. Limitations: no limitations Course Vital Signs 05/24/17 05/24/17 05/24/17 17:18 17:52 18:03 Temperature 98.5 F Pulse Rate 79 84 86 Respiratory 18 Rate Blood Pressure 111/58 O2 Sat by Pulse 99 Oximetry 05/24/17 19:12 Temperature Pulse Rate 80 Respiratory 18 Rate Blood Pressure 133/64 O2 Sat by Pulse 97 Oximetry - Reevaluation(s) Reevaluation #1: 05/24/17 19:20 Patient is up and walking around the department. He is stable for discharge. EKG Findings - EKG Comments: EKG Findings:: Normal sinus rhythm ventricular 83, [place] interval 154, QS duration 132 QT 436 Medical Decision Making - Medical Decision Making 71-year-old male presents emergency department with a chief complaint of shortness of breath. This and the patient is feeling better he has no complaints of pain. Patient has minimal wheeze to auscultation. At this time patient continues to be stable on his chronic oxygen level. Wheezing has resolved. At this time patient will be discharged home. We discussed follow- up return parameters all questions. Patient stated that he understood and he is agreement this plan. We discussed continuing his breathing treatments for home. At this time patient will be discharged. - Lab Data Result diagrams: 05/24/17 17:33 05/24/17 17:33 Lab Results 05/24/17 05/24/17 05/24/17 Range/Units 17:33 17:33 17:33 WBC 4.0 (3.8-10.6) k/uL RBC 3.29 L (4.30-5.90) m/uL Hgb 8.8 L (13.0-17.5) gm/dL Hct 30.1 L (39.0-53.0) % MCV 91.4 D (80.0-100.0) fL MCH 26.8 (25.0-35.0) pg MCHC 29.3 L (31.0-37.0) g/dL RDW 18.6 H (11.5-15.5) % Plt Count 193 (150-450) k/uL Neutrophils % 49 % Lymphocytes % 41 % Monocytes % 5 % Eosinophils % 2 % Basophils % 0 % Neutrophils # 2.0 (1.3-7.7) k/uL Lymphocytes # 1.6 (1.0-4.8) k/uL Monocytes # 0.2 (0-1.0) k/uL Eosinophils # 0.1 (0-0.7) k/uL Basophils # 0.0 (0-0.2) k/uL Hypochromasia Marked Poikilocytosis Slight Anisocytosis Slight PT (9.0-12.0) sec INR (<1.2) APTT (22.0-30.0) sec Sodium 146 H (137-145) mmol/L Potassium 3.5 (3.5-5.1) mmol/L Chloride 106 (98-107) mmol/L Carbon Dioxide 29 (22-30) mmol/L Anion Gap 11 mmol/L BUN 5 L (9-20) mg/dL Creatinine 0.80 (0.66-1.25) mg/dL Est GFR (MDRD) Af Amer >60 (>60 ml/min/1.73 sqM) Est GFR (MDRD) Non-Af >60 (>60 ml/min/1.73 sqM) Glucose 93 (74-99) mg/dL Calcium 7.7 L (8.4-10.2) mg/dL Phosphorus 3.4 (2.5-4.5) mg/dL Magnesium 1.5 L (1.6-2.3) mg/dL Total Bilirubin 0.7 (0.2-1.3) mg/dL AST 57 (17-59) U/L ALT 21 (21-72) U/L Alkaline Phosphatase 120 (38-126) U/L Total Creatine Kinase 120 (55-170) U/L CK-MB (CK-2) 0.8 (0.0-2.4) ng/mL CK-MB (CK-2) Rel Index 0.7 Troponin I 0.012 (0.000-0.034) ng/mL Total Protein 5.6 L (6.3-8.2) g/dL Albumin 2.9 L (3.5-5.0) g/dL 05/24/17 Range/Units 17:33 WBC (3.8-10.6) k/uL RBC (4.30-5.90) m/uL Hgb (13.0-17.5) gm/dL Hct (39.0-53.0) % MCV (80.0-100.0) fL MCH (25.0-35.0) pg MCHC (31.0-37.0) g/dL RDW (11.5-15.5) % Plt Count (150-450) k/uL Neutrophils % % Lymphocytes % % Monocytes % % Eosinophils % % Basophils % % Neutrophils # (1.3-7.7) k/uL Lymphocytes # (1.0-4.8) k/uL Monocytes # (0-1.0) k/uL Eosinophils # (0-0.7) k/uL Basophils # (0-0.2) k/uL Hypochromasia Poikilocytosis Anisocytosis PT 11.9 (9.0-12.0) sec INR 1.2 H (<1.2) APTT 26.0 (22.0-30.0) sec Sodium (137-145) mmol/L Potassium (3.5-5.1) mmol/L Chloride (98-107) mmol/L Carbon Dioxide (22-30) mmol/L Anion Gap mmol/L BUN (9-20) mg/dL Creatinine (0.66-1.25) mg/dL Est GFR (MDRD) Af Amer (>60 ml/min/1.73 sqM) Est GFR (MDRD) Non-Af (>60 ml/min/1.73 sqM) Glucose (74-99) mg/dL Calcium (8.4-10.2) mg/dL Phosphorus (2.5-4.5) mg/dL Magnesium (1.6-2.3) mg/dL Total Bilirubin (0.2-1.3) mg/dL AST (17-59) U/L ALT (21-72) U/L Alkaline Phosphatase (38-126) U/L Total Creatine Kinase (55-170) U/L CK-MB (CK-2) (0.0-2.4) ng/mL CK-MB (CK-2) Rel Index Troponin I (0.000-0.034) ng/mL Total Protein (6.3-8.2) g/dL Albumin (3.5-5.0) g/dL - Radiology Data Radiology results: report reviewed, image reviewed Disposition Clinical Impression: COPD (chronic obstructive pulmonary disease) Disposition: HOME SELF-CARE Condition: Stable Instructions: COPD (Chronic Obstructive Pulmonary Disease) (ED) Additional Instructions: Please use medication as discussed. Please follow up with family doctor if symptoms have not improved over the next two days. Please return to the emergency room if your symptoms increase or worsen or for any other concerns. Referrals: Darrick Georges MD [Primary Care Provider] - 1-2 days Time of Disposition: 19:47
[2017-05-24 18:14] LABS: Anisocytosis Slight; Basophils % (A) 0 %; Eosinophils # (A) 0.1 k/uL (0-0.7); Eosinophils % (A) 2 %; HCT 30.1 % (39.0-53.0); HGB 8.8 gm/dL (13.0-17.5); Hypochromasia Marked; Lymphocytes # (A) 1.6 k/uL (1.0-4.8); Lymphocytes % (A) 41 %; MCH 26.8 pg (25.0-35.0); MCHC 29.3 g/dL (31.0-37.0); Mean Platelet Volume 6.9; Monocytes # (A) 0.2 k/uL (0-1.0); Monocytes % (A) 5 %; Neutrophils % (A) 49 %; Platelet Count 193 k/uL (150-450); Poikilocytosis Slight; RBC 3.29 m/uL (4.30-5.90); RDW 18.6 % (11.5-15.5)
[2017-05-24 18:15] LABS: MCV 91.4 fL (80.0-100.0)
[2017-05-24 18:19] LABS: INR 1.2 (<1.2); Prothrombin Time 11.9 sec (9.0-12.0)
[2017-05-24 18:20] LABS: ALT 21 U/L (21-72); AST 57 U/L (17-59); Albumin 2.9 g/dL (3.5-5.0); Alkaline Phosphatase 120 U/L (38-126); Anion Gap 11 mmol/L; Blood Urea Nitrogen 5 mg/dL (9-20); Calcium 7.7 mg/dL (8.4-10.2); Carbon Dioxide 29 mmol/L (22-30); Chloride 106 mmol/L (98-107); Glucose 93 mg/dL (74-99); Magnesium 1.5 mg/dL (1.6-2.3); Phosphorus 3.4 mg/dL (2.5-4.5); Potassium 3.5 mmol/L (3.5-5.1); Sodium 146 mmol/L (137-145); Total Bilirubin 0.7 mg/dL (0.2-1.3); Total Protein 5.6 g/dL (6.3-8.2)
[2017-05-24 18:53] LABS: Creatine Kinase MB 0.8 ng/mL (0.0-2.4); Troponin I 0.012 ng/mL (0.000-0.034)
--- NOTE | 2017-05-24 18:58 | XR ---
EXAMINATION TYPE: XR chest 2V DATE OF EXAM: 05/24/2017 COMPARISON: CTA chest April 15, 2017. Two-view chest x-ray April 04, 2017. HISTORY: Shortness of breath today. TECHNIQUE: Frontal and lateral views of the chest are obtained. FINDINGS: Background chronic emphysematous changes redemonstrated. There is no focal air space opacit y, pleural effusion, or pneumothorax seen. The cardiac silhouette size is within normal limits. [place] llic hardware from right shoulder arthroplasty is partially imaged. IMPRESSION: Chronic emphysematous change without acute pulmonary process.
[2017-05-24 20:27] VITALS: BP 135/60; PULSE 85; TEMP 98.6
== END 2017-05-24 20:45 | disposition home or self-care (01) ==
LOC: EC 17:06
DX: J44.9 Chronic obstructive pulmonary disease, unspecified (principal); I48.91 Unspecified atrial fibrillation; E78.5 Hyperlipidemia, unspecified; I11.0 Hypertensive heart disease with heart failure; I50.9 Heart failure, unspecified; F17.200 Nicotine dependence, unspecified, uncomplicated; Z86.73 Personal history of transient ischemic attack (TIA), and cerebral infarction without residual deficits; Z88.1 Allergy status to other antibiotic agents; Z79.51 Long term (current) use of inhaled steroids; Z79.82 Long term (current) use of aspirin; Z79.01 Long term (current) use of anticoagulants; Z79.899 Other long term (current) drug therapy
CPT/HCPCS: 99285; 96374; 36415; 94640; 93005; 80053; 82550; 82553; 83735; 84100; 84484; 85025; 85610; 85730; 71046; J2930

== ENCOUNTER 2017-10-13 17:37 | Inpatient (IN) | payer MEDICARE ==
[2017-10-13] MEDS ORDERED: DILTIAZEM 50 MG in SODIUM CHLORIDE 0.9% 40 ML IV ONE (18:02)
[2017-10-13] MEDS ORDERED: DILTIAZEM 5 MG/1 ML (25ML VIAL) IV STA (18:03)
[2017-10-13 18:15] LABS: Glucose,Whole Blood 132 mg/dL (75-99)
[2017-10-13 18:20] LABS: Anisocytosis Slight; Basophils % (A) 0 %; Eosinophils # (A) 0.1 k/uL (0-0.7); Eosinophils % (A) 2 %; HCT 29.5 % (39.0-53.0); HGB 8.6 gm/dL (13.0-17.5); Hypochromasia Marked; Lymphocytes # (A) 1.1 k/uL (1.0-4.8); Lymphocytes % (A) 16 %; MCH 26.4 pg (25.0-35.0); MCHC 29.2 g/dL (31.0-37.0); MCV 90.6 fL (80.0-100.0); Mean Platelet Volume 8.9; Monocytes # (A) 0.5 k/uL (0-1.0); Monocytes % (A) 8 %; Neutrophils # (A) 4.7 k/uL (1.3-7.7); Neutrophils % (A) 71 %; Platelet Count 226 k/uL (150-450); RBC 3.26 m/uL (4.30-5.90); RDW 18.3 % (11.5-15.5); WBC 6.6 k/uL (3.8-10.6)
[2017-10-13 18:28] LABS: INR 1.7 (<1.2); Partial Thromboplastin Time 31.4 sec (22.0-30.0); Prothrombin Time 15.2 sec (9.0-12.0)
[2017-10-13 18:34] LABS: ALT 28 U/L (21-72); AST 35 U/L (17-59); Albumin 3.9 g/dL (3.5-5.0); Alkaline Phosphatase 94 U/L (38-126); Anion Gap 11 mmol/L; Blood Urea Nitrogen 23 mg/dL (9-20); Calcium 8.8 mg/dL (8.4-10.2); Carbon Dioxide 29 mmol/L (22-30); Chloride 100 mmol/L (98-107); Glucose 120 mg/dL (74-99); Magnesium 1.7 mg/dL (1.6-2.3); Potassium 4.7 mmol/L (3.5-5.1); Sodium 140 mmol/L (137-145); Total Bilirubin 1.4 mg/dL (0.2-1.3); Total Protein 6.8 g/dL (6.3-8.2)
[2017-10-13 18:40] LABS: VBG PH 7.34 (7.31-7.41)
--- NOTE | 2017-10-13 18:40 | ED ---
SOB HPI - General Chief Complaint: Shortness of Breath Stated Complaint: Diff Breathing Time Seen by Provider: 10/13/17 17:42 Source: patient Mode of arrival: wheelchair Limitations: no limitations - History of Present Illness Initial Comments: Is a 72-year-old male with a history of CHF, A. fib, COPD on chronic O2 at home who presents emergent department for worsening shortness of breath. He states is been going on for last couple of days. He states he does have a cough that is productive of white sputum. He denies any fevers or chills. He states he's been taking his Zarrella toe and has not missed any doses of his medications. He denies any chest pain. No lower Chevys swelling. He states he's had multiple hospital admissions for atrial fibrillation and also CHF. He presented because of his shortness of breath. Denies any other acute complaints. - Related Data Home Medications Medication Instructions Recorded Confirmed Budesonide/Formoterol Fumarate 2 puff INHALATION RT-BID 01/17/16 05/25/17 [Symbicort 160-4.5 Mcg Inhaler] Tamsulosin HCl [Flomax] 0.4 mg PO HS 01/17/16 05/25/17 Albuterol Sulfate [Proair Hfa] 2 puff INHALATION RT-Q6H PRN 09/14/16 05/25/17 Ipratropium [place] [Atrovent Hfa] 2 puff INHALATION RT-BID 12/13/16 05/25/17 Metoprolol Tartrate [Lopressor] 25 mg PO BID 12/13/16 05/25/17 Pravastatin Sodium [Pravachol] 40 mg PO HS 12/13/16 05/25/17 Aspirin [Adult Low Dose Aspirin EC] 81 mg PO DAILY 03/28/17 05/27/17 Rivaroxaban [Xarelto] 20 mg PO DAILY 03/28/17 05/25/17 Diphenoxylate HCl/Atropine 1 tab PO QID PRN 04/13/17 05/25/17 [Lomotil 2.5-0.025 mg Tablet] HYDROcodone/APAP 10-325MG [[place] 1 tab PO Q6H PRN 04/13/17 05/25/17 10-325] Previous Rx's Medication Instructions Recorded Thiamine [Vitamin B-1] 100 mg PO BID@1200,1700 tab 03/31/17 Diazepam [Valium] See Taper PO TID #15 tab 05/27/17 Nicotine 21Mg/24Hr Patch [Habitrol] 1 patch TRANSDERM DAILY #28 patch 05/27/17 Allergies Allergy/AdvReac Type Severity Reaction Status Date / Time cephalexin monohydrate Allergy Rash/Hives Verified 10/13/17 17:40 [From [facility]] Review of Systems ROS Statement: Those systems with pertinent positive or pertinent negative responses have been documented in the HPI. ROS Other: All systems not noted in ROS Statement are negative. 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 History of Any Multi-Drug Resistant Organisms: None Reported Past Surgical History: Back Surgery, Hernia Repair Additional Past Surgical History / Comment(s): right shoulder surgery, bilateral cataract surgery, umbilical hernia surgery, kidney stones removal, hammer toe surgery X3 with subsequent amputation of the second toe on right foot , pain injections through neurology, colonoscopy Past Anesthesia/Blood Transfusion Reactions: No Reported Reaction Past Psychological History: No Psychological Hx Reported Smoking Status: Current every day smoker Past Alcohol Use History: Daily Past Drug Use History: None Reported - Past Family History Father Family Medical History: Diabetes Mellitus Mother History Unknown: Yes Additional Family Medical History / Comment(s): 2001 General Exam - General Exam Comments Initial Comments: Constitutional: Awake alert Appears comfortable Head: Normocephalic atraumatic Eyes: no conjunctival injection No scleral icterus EOMI Neck: No JVD Supple Heart: Tachycardia with irregular rhythm normal S1-S2 no murmurs Lungs: Clear to auscultation bilaterally No wheezing No rales Abdomen: Soft nondistended nontender Extremities: Non edematous DP pulses intact Radial pulses intact Neuro: A&Ox3 No focal neurologic deficits Psych: Appropriate mood and affect Limitations: no limitations Course Vital Signs 10/13/17 10/13/17 17:39 19:40 Temperature 98.2 F Pulse Rate 148 H 130 H Respiratory 24 16 Rate Blood Pressure 108/64 123/67 O2 Sat by Pulse 98 100 Oximetry - Reevaluation(s) Reevaluation #1: 10/13/17 19:44 EKG showing it showed atrial tachycardia with a rate of 172. There is a right bundle-branch block morphology. No abnormal ST segment changes or T-wave or very QTC is 460. Other intervals appear normal. No ectopy. Suspect that this is atrial fibrillation based on the irregularity on the monitor. Medical Decision Making - Medical Decision Making Is a 72-year-old male who presents emergency department for shortness of breath. Patient was found to be in intrafibrillation with rapid ventricular rate. He was started on Cardizem with improvement to his rate. The patient's rate is currently in the 120s. Troponin is mildly elevated and I suspect this is from the tachycardia. The patient's pulse ox is been 100% on 2 L of oxygen which the patient wears at home. Chest x-ray did not show any significant pleural effusions or pulmonary edema. The patient did have some wheezing on examination however do not want to give breathing treatments because of the tachycardia at this time and he is comfortable with improvement in his heart rate. We'll admit to the hospital for further workup and treatment. Dr. Canales accepts the admission. - Lab Data Result diagrams: 10/13/17 18:08 10/13/17 18:08 Lab Results 10/13/17 10/13/17 10/13/17 Range/Units 18:08 18:08 18:08 WBC 6.6 (3.8-10.6) k/uL RBC 3.26 L (4.30-5.90) m/uL Hgb 8.6 L (13.0-17.5) gm/dL Hct 29.5 L (39.0-53.0) % MCV 90.6 (80.0-100.0) fL MCH 26.4 (25.0-35.0) pg MCHC 29.2 L (31.0-37.0) g/dL RDW 18.3 H (11.5-15.5) % Plt Count 226 (150-450) k/uL Neutrophils % 71 % Lymphocytes % 16 % Monocytes % 8 % Eosinophils % 2 % Basophils % 0 % Neutrophils # 4.7 (1.3-7.7) k/uL Lymphocytes # 1.1 (1.0-4.8) k/uL Monocytes # 0.5 (0-1.0) k/uL Eosinophils # 0.1 (0-0.7) k/uL Basophils # 0.0 (0-0.2) k/uL Hypochromasia Marked Anisocytosis Slight PT (9.0-12.0) sec INR (<1.2) APTT (22.0-30.0) sec VBG pH (7.31-7.41) VBG pCO2 (37-51) mmHg VBG HCO3 (24-28) mmol/L Sodium 140 (137-145) mmol/L Potassium 4.7 (3.5-5.1) mmol/L Chloride 100 (98-107) mmol/L Carbon Dioxide 29 (22-30) mmol/L Anion Gap 11 mmol/L BUN 23 H (9-20) mg/dL Creatinine 0.90 (0.66-1.25) mg/dL Est GFR (CKD-EPI)AfAm >90 (>60 ml/min/1.73 sqM) Est GFR (CKD-EPI)NonAf 86 (>60 ml/min/1.73 sqM) Glucose 120 H (74-99) mg/dL POC Glucose (mg/dL) (75-99) mg/dL POC Glu Coater Slate ID Calcium 8.8 (8.4-10.2) mg/dL Magnesium 1.7 (1.6-2.3) mg/dL Total Bilirubin 1.4 H (0.2-1.3) mg/dL AST 35 (17-59) U/L ALT 28 (21-72) U/L Alkaline Phosphatase 94 (38-126) U/L CK-MB (CK-2) 2.3 (0.0-2.4) ng/mL Troponin I 0.035 H* (0.000-0.034) ng/mL NT-Pro-B Natriuret Pep pg/mL Total Protein 6.8 (6.3-8.2) g/dL Albumin 3.9 (3.5-5.0) g/dL 10/13/17 10/13/17 10/13/17 Range/Units 18:08 18:08 18:14 WBC (3.8-10.6) k/uL RBC (4.30-5.90) m/uL Hgb (13.0-17.5) gm/dL Hct (39.0-53.0) % MCV (80.0-100.0) fL MCH (25.0-35.0) pg MCHC (31.0-37.0) g/dL RDW (11.5-15.5) % Plt Count (150-450) k/uL Neutrophils % % Lymphocytes % % Monocytes % % Eosinophils % % Basophils % % Neutrophils # (1.3-7.7) k/uL Lymphocytes # (1.0-4.8) k/uL Monocytes # (0-1.0) k/uL Eosinophils # (0-0.7) k/uL Basophils # (0-0.2) k/uL Hypochromasia Anisocytosis PT 15.2 H (9.0-12.0) sec INR 1.7 H (<1.2) APTT 31.4 H (22.0-30.0) sec VBG pH (7.31-7.41) VBG pCO2 (37-51) mmHg VBG HCO3 (24-28) mmol/L Sodium (137-145) mmol/L Potassium (3.5-5.1) mmol/L Chloride (98-107) mmol/L Carbon Dioxide (22-30) mmol/L Anion Gap mmol/L BUN (9-20) mg/dL Creatinine (0.66-1.25) mg/dL Est GFR (CKD-EPI)AfAm (>60 ml/min/1.73 sqM) Est GFR (CKD-EPI)NonAf (>60 ml/min/1.73 sqM) Glucose (74-99) mg/dL POC Glucose (mg/dL) 132 H (75-99) mg/dL POC Glu Coater Slate ID Isabella Tracy Calcium (8.4-10.2) mg/dL Magnesium (1.6-2.3) mg/dL Total Bilirubin (0.2-1.3) mg/dL AST (17-59) U/L ALT (21-72) U/L Alkaline Phosphatase (38-126) U/L CK-MB (CK-2) (0.0-2.4) ng/mL Troponin I (0.000-0.034) ng/mL NT-Pro-B Natriuret Pep 70121 pg/mL Total Protein (6.3-8.2) g/dL Albumin (3.5-5.0) g/dL 10/13/17 Range/Units 18:30 WBC (3.8-10.6) k/uL RBC (4.30-5.90) m/uL Hgb (13.0-17.5) gm/dL Hct (39.0-53.0) % MCV (80.0-100.0) fL MCH (25.0-35.0) pg MCHC (31.0-37.0) g/dL RDW (11.5-15.5) % Plt Count (150-450) k/uL Neutrophils % % Lymphocytes % % Monocytes % % Eosinophils % % Basophils % % Neutrophils # (1.3-7.7) k/uL Lymphocytes # (1.0-4.8) k/uL Monocytes # (0-1.0) k/uL Eosinophils # (0-0.7) k/uL Basophils # (0-0.2) k/uL Hypochromasia Anisocytosis PT (9.0-12.0) sec INR (<1.2) APTT (22.0-30.0) sec VBG pH 7.34 (7.31-7.41) VBG pCO2 56 H (37-51) mmHg VBG HCO3 29 H (24-28) mmol/L Sodium (137-145) mmol/L Potassium (3.5-5.1) mmol/L Chloride (98-107) mmol/L Carbon Dioxide (22-30) mmol/L Anion Gap mmol/L BUN (9-20) mg/dL Creatinine (0.66-1.25) mg/dL Est GFR (CKD-EPI)AfAm (>60 ml/min/1.73 sqM) Est GFR (CKD-EPI)NonAf (>60 ml/min/1.73 sqM) Glucose (74-99) mg/dL POC Glucose (mg/dL) (75-99) mg/dL POC Glu Coater Slate ID Calcium (8.4-10.2) mg/dL Magnesium (1.6-2.3) mg/dL Total Bilirubin (0.2-1.3) mg/dL AST (17-59) U/L ALT (21-72) U/L Alkaline Phosphatase (38-126) U/L CK-MB (CK-2) (0.0-2.4) ng/mL Troponin I (0.000-0.034) ng/mL NT-Pro-B Natriuret Pep pg/mL Total Protein (6.3-8.2) g/dL Albumin (3.5-5.0) g/dL Disposition Clinical Impression: Atrial fibrillation with RVR Disposition: ADMITTED IP TO THIS HOSP Condition: Stable
[2017-10-13 18:48] LABS: Creatine Kinase MB 2.3 ng/mL (0.0-2.4)
[2017-10-13 18:50] LABS: Troponin I 0.035 ng/mL (0.000-0.034)
--- NOTE | 2017-10-13 19:18 | XR ---
EXAMINATION TYPE: XR chest 1V portable DATE OF EXAM: 10/13/2017 COMPARISON: 05/25/2017 HISTORY: Chest pain TECHNIQUE: Single frontal view of the chest is obtained. FINDINGS: Heart is enlarged. There is no heart failure. Lungs are clear of consolidation. There is n o pleural effusion. There are chest leads. IMPRESSION: Cardiomegaly. No heart failure.
[2017-10-13] MEDS ORDERED: NALOXONE 0.4 MG/ML 1 ML VIAL IV PRN (19:42)
[2017-10-13] MEDS ORDERED: ALBUTEROL NEBULIZED 2.5 MG/3 ML INHALATION PRN (20:14)
[2017-10-13] MEDS ORDERED: LORazepam 2 MG/ML INJ IV PRN (21:09)
[2017-10-13] MEDS: methylPREDNISolone SOD SUCCI 125 MG/2 ML VIAL IV SCH (21:20)
--- NOTE | 2017-10-13 22:02 | P.HPIM ---
History of Present Illness H&P Date: 10/13/17 Chief Complaint: severe shortness of breath 72-year-old male with history of COPD on home oxygen 3 L through nasal cannula. Presented to the hospital with severe progressive shortness of breath over the past 4 days, he reports trying all his inhalers at home with little benefit however today he noticed that his shortness of breath has worsened and has not been responding to his home medications for which she decided come to the hospital on top of that he noticed some heart racing, he stressed the fact that he is compliant with all his medications especially the heart medications and he did not miss anything. He otherwise denies any fevers or chills, he reports some coughing with whitish sputum has not changed from his baseline, he admits to continued to smoking. He also admits to regular drinking of alcohol on pint a fifth every night to help him sleep. Otherwise denies any chest pain, abdominal pain, nausea or vomiting, changes in bowel habits, denies any GI bleeding. Patient indicates that he is on xarelto for atrial fibrillation. In the ED patient was found to be in A. fib with RVR for which diltiazem was started. Patient admitted for management of A. fib with RVR . Upon interviewing the patient on the floor, he was in respiratory distress with oxygen saturation around 88% despite 3 L nasal cannula however this has improved after patient received breathing treatment Review of Systems Pertinent positives as noted in HPI. 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 History of Any Multi-Drug Resistant Organisms: None Reported Past Surgical History: Back Surgery, Hernia Repair Additional Past Surgical History / Comment(s): right shoulder surgery, bilateral cataract surgery, umbilical hernia surgery, kidney stones removal, hammer toe surgery X3 with subsequent amputation of the second toe on right foot , pain injections through neurology, colonoscopy Past Anesthesia/Blood Transfusion Reactions: No Reported Reaction Past Psychological History: No Psychological Hx Reported Additional Psychological History / Comment(s): Lives with friend, Bekah Arriaga. she lives in the upstairs of his home. Smoking Status: Current every day smoker Past Alcohol Use History: Daily Additional Past Alcohol Use History / Comment(s): Smokes 1 PPD, USUALLY DRINKS "at least" A FIFTH OF VODKA BETWEEN 9PM-MIDNIGHT DAILY Past Drug Use History: None Reported - Past Family History Father Family Medical History: Diabetes Mellitus Mother History Unknown: Yes Additional Family Medical History / Comment(s): 2000 Medications and Allergies Home Medications Medication Instructions Recorded Confirmed Type Budesonide/Formoterol Fumarate 2 puff INHALATION RT-BID 01/17/16 05/25/17 History [Symbicort 160-4.5 Mcg Inhaler] Tamsulosin HCl [Flomax] 0.4 mg PO HS 01/17/16 05/25/17 History Albuterol Sulfate [Proair Hfa] 2 puff INHALATION RT-Q6H PRN 09/14/16 05/25/17 History Ipratropium [place] [Atrovent Hfa] 2 puff INHALATION RT-BID 12/13/16 05/25/17 History Metoprolol Tartrate [Lopressor] 25 mg PO BID 12/13/16 05/25/17 History Pravastatin Sodium [Pravachol] 40 mg PO HS 12/13/16 05/25/17 History Aspirin [Adult Low Dose Aspirin EC] 81 mg PO DAILY 03/28/17 05/27/17 History Rivaroxaban [Xarelto] 20 mg PO DAILY 03/28/17 05/25/17 History Thiamine [Vitamin B-1] 100 mg PO BID@1200,1700 tab 03/31/17 05/27/17 Rx Diphenoxylate HCl/Atropine 1 tab PO QID PRN 04/13/17 05/25/17 History [Lomotil 2.5-0.025 mg Tablet] HYDROcodone/APAP 10-325MG [[place] 1 tab PO Q6H PRN 04/13/17 05/25/17 History 10-325] Diazepam [Valium] See Taper PO TID #15 tab 05/27/17 Rx Nicotine 21Mg/24Hr Patch [Habitrol] 1 patch TRANSDERM DAILY #28 patch 05/27/17 Rx Allergies Allergy/AdvReac Type Severity Reaction Status Date / Time cephalexin monohydrate Allergy Rash/Hives Verified 10/13/17 19:58 [From Keflex] Physical Exam Vitals: Vital Signs Temp Pulse Pulse Resp BP BP Pulse Ox 10/13/17 20:06 97 F L 154 H 3 L 125/91 10/13/17 19:40 130 H 16 123/67 100 10/13/17 17:39 98.2 F 148 H 24 108/64 98 Intake and Output 10/13/17 10/13/17 10/13/17 06:59 14:59 22:59 Intake Total 5 Balance 5 Intake: Intake, IV Titration 5 Amount Diltiazem 50 mg In Sodium 5 Chloride 0.9% 40 ml @ 5 MG/HR 5 mls/hr IV .Q10H ONE Rx#:[id number] Other: Weight 77.111 kg Constitutional: Patient was found in acute respiratory distress however improved after breathing treatment. conversant, pleasant, looks at his stated age Eyes: Anicteric sclerae, moist conjunctiva, no lid-lag Pupils equal round reactive to light ENMT: NC/AT Oropharynx clear, no erythema, or exudates Neck: Supple, FROM, no masses, or JVD No carotid bruits No thyromegaly Lungs: Decreased breath sounds throughout, with prolonged respiratory phase , and diffuse wheezing Patient using accessory muscles of respiration Cardiovascular: Heart irregular tachycardic No murmurs, gallops, or rubs No peripheral edema Abdominal: Soft Nontender, no guarding, rebound or rigidity Abdomen moving with respiration Normoactive bowel sounds No hepatomegaly, No splenomegaly No palpable mass No abdominal wall hernia noted Skin: Normal temperature, tone, texture, turgor No induration No subcutaneous nodules No rash, lesions No ulcers Extremities: No digital cyanosis No clubbing Pedal pulses intact and symmetrical Radial pulses intact and symmetrical No calf tenderness Psychiatric: Alert and oriented to person, place and time Appropriate affect fair judgment Neuro Muscles Strength 4/5 in all 4 extremities Sensation to light touch grossly present throughout Cranial nerves II-XII grossly intact No focal sensory deficits Lymphatics: no palpable cervical or supraclavicular , or inguinal lymph nodes Results CBC & Chem 7: 10/13/17 18:08 10/13/17 18:08 Labs: Abnormal Lab Results - Last 24 Hours (Table) 10/13/17 10/13/17 10/13/17 Range/Units 18:08 18:08 18:08 RBC 3.26 L (4.30-5.90) m/uL Hgb 8.6 L (13.0-17.5) gm/dL Hct 29.5 L (39.0-53.0) % MCHC 29.2 L (31.0-37.0) g/dL RDW 18.3 H (11.5-15.5) % PT (9.0-12.0) sec INR (<1.2) APTT (22.0-30.0) sec VBG pCO2 (37-51) mmHg VBG HCO3 (24-28) mmol/L BUN 23 H (9-20) mg/dL Glucose 120 H (74-99) mg/dL POC Glucose (mg/dL) (75-99) mg/dL Total Bilirubin 1.4 H (0.2-1.3) mg/dL Troponin I 0.035 H* (0.000-0.034) ng/mL 10/13/17 10/13/17 10/13/17 Range/Units 18:08 18:14 18:30 RBC (4.30-5.90) m/uL Hgb (13.0-17.5) gm/dL Hct (39.0-53.0) % MCHC (31.0-37.0) g/dL RDW (11.5-15.5) % PT 15.2 H (9.0-12.0) sec INR 1.7 H (<1.2) APTT 31.4 H (22.0-30.0) sec VBG pCO2 56 H (37-51) mmHg VBG HCO3 29 H (24-28) mmol/L BUN (9-20) mg/dL Glucose (74-99) mg/dL POC Glucose (mg/dL) 132 H (75-99) mg/dL Total Bilirubin (0.2-1.3) mg/dL Troponin I (0.000-0.034) ng/mL Thrombosis Risk Factor Assmnt - Choose All That Apply Each Risk Factor Represents 2 Points: Age 61-74 years Thrombosis Risk Factor Assessment Total Risk Factor Score: 2 Thrombosis Risk Factor Assessment Level: Low Risk Assessment and Plan Assessment: 72-year-old male with history of paroxysmal A. fib and COPD. Patient on home oxygen. Presented due to severe shortness of breath was found to be in A. fib with RVR, patient was started on diltiazem. On the floor he was found in acute respiratory distress with diffuse wheezing and acute hypoxic respiratory failure despite 3 L of nasal cannula patient was started on COPD pathway. Plan: Acute on chronic hypoxic respiratory failure Acute COPD exacerbation Patient was satting 86-88% despite 3 L of oxygen which is his home dose Initiate COPD pathway DuoNeb's Symbicort Consider Spiriva upon discharge IV steroids Patient counseled to quit smoking Paroxysmal A. fib with RVR Start patient on diltiazem Continue with xarelto Cardiology consult Serial troponin History of CHF thought to be due to alcohol abuse, most recent EF 45-50 percent currently compensated continue home medications Alcohol abuse with daily heavy drinking Monitor for symptoms of alcohol withdrawal Benzos per CIWA Multivitamin and thiamine Chronic anemia currently at baseline Patient denies any evidence of GI bleeding Consider outpatient close monitoring and follow-up DVT prophylaxis Patient on Xarelto Diet cardiac Hypertension currently controlled continue home medications Hyperlipidemia continue home medications Preformed a thorough record review from recent hospitalization April 2017 where he was presented for COPD exacerbation Surrogate decision-maker: Pamela CODE STATUS: Full code Discussed with: Patient, ER, RN Anticipated discharge: 48-72 hours, patient admitted due to A. fib with RVR requiring IV diltiazem to control his heartrate, along with acute COPD exacerbation with acute hypoxic respiratory failure despite his home oxygen requiring parenteral steroid and around the clock albuterol/ipratropium nebulizer Anticipated discharge place: Home A total of 50 minutes was spent on the care of this complex patient more than 50 % of the time was spent in counseling and care coordination.
[2017-10-13] MEDS: METOPROLOL TARTRATE 25 MG TAB PO SCH (22:24)
[2017-10-13] MEDS: THIAMINE 100 MG TAB PO SCH (22:24)
[2017-10-13] MEDS: PRAVASTATIN SODIUM 40 MG TAB PO SCH (22:24)
[2017-10-13] MEDS: TAMSULOSIN 0.4 MG CAP.ER.24H PO SCH (22:24)
[2017-10-13] MEDS: BENZONATATE 100 MG CAP PO SCH (22:25)
[2017-10-13] MEDS: LORazepam 2 MG/ML INJ IV PRN (23:33)
[2017-10-13] MEDS: SYMBICORT 160-4.5 MCG INHALER INHALATION SCH (23:33)
[2017-10-13] MEDS: IPRATROPIUM-ALBUTEROL 3 ML NEB INHALATION PRN (23:34)
[2017-10-14 00:46] LABS: Creatine Kinase MB 2.2 ng/mL (0.0-2.4)
[2017-10-14 00:53] LABS: Troponin I 0.047 ng/mL (0.000-0.034)
[2017-10-14] MEDS: methylPREDNISolone SOD SUCCI 125 MG/2 ML VIAL IV SCH ×3 (05:45→15:48)
[2017-10-14] MEDS: DILTIAZEM 50 MG in SODIUM CHLORIDE 0.9% 40 ML IV SCH ×3 (05:45→15:39)
[2017-10-14 06:02] LABS: Glucose,Whole Blood 188 mg/dL (75-99)
[2017-10-14 06:26] LABS: Albumin 3.6 g/dL (3.5-5.0); Calcium 8.5 mg/dL (8.4-10.2); Potassium 5.4 mmol/L (3.5-5.1); Total Bilirubin 1.9 mg/dL (0.2-1.3); Total Protein 6.4 g/dL (6.3-8.2)
[2017-10-14 06:33] LABS: Anisocytosis Slight; Basophils % (A) 0 %; Eosinophils % (A) 0 %; HCT 27.6 % (39.0-53.0); Hypochromasia Marked; Lymphocytes # (A) 0.4 k/uL (1.0-4.8); Lymphocytes % (A) 9 %; MCH 26.9 pg (25.0-35.0); MCHC 28.8 g/dL (31.0-37.0); MCV 93.2 fL (80.0-100.0); Macrocytosis Slight; Mean Platelet Volume 7.4; Monocytes # (A) 0.1 k/uL (0-1.0); Monocytes % (A) 2 %; Neutrophils % (A) 89 %; Platelet Count 198 k/uL (150-450); RBC 2.96 m/uL (4.30-5.90); RDW 18.4 % (11.5-15.5); WBC 4.5 k/uL (3.8-10.6)
[2017-10-14 06:52] LABS: Creatine Kinase MB 2.1 ng/mL (0.0-2.4)
[2017-10-14 06:54] LABS: Troponin I 0.037 ng/mL (0.000-0.034)
[2017-10-14] MEDS: SYMBICORT 160-4.5 MCG INHALER INHALATION SCH ×2 (07:43→20:11)
[2017-10-14] MEDS: IPRATROPIUM-ALBUTEROL 3 ML NEB INHALATION PRN (07:43)
[2017-10-14] MEDS: ASPIRIN 81 MG PO SCH (08:44)
[2017-10-14] MEDS: BENZONATATE 100 MG CAP PO SCH ×3 (08:45→20:00)
[2017-10-14] MEDS: METOPROLOL TARTRATE 25 MG TAB PO SCH ×2 (08:45→20:00)
[2017-10-14] MEDS: RIVAROXABAN 20 MG TAB PO SCH (08:45)
[2017-10-14] MEDS: FAMOTIDINE 20 MG TAB PO SCH ×2 (08:45→20:00)
[2017-10-14] MEDS: NICOTINE 21MG/24HR PATCH TRANSDERM SCH (08:48)
[2017-10-14] MEDS ORDERED: ALBUTEROL NEBULIZED 2.5 MG/3 ML INHALATION PRN (10:08)
[2017-10-14] MEDS ORDERED: FUROSEMIDE 10 MG/ML 4 ML VIAL IV STA ×2 (10:09→18:32)
--- NOTE | 2017-10-14 10:15 | P.PN ---
Subjective Progress Note Date: 10/14/17 Principal diagnosis: shortness of breath Patient is a 72 yo CM with a history of alcohol abuse, A. fib, COPD on chronic oxygen at 3 L nasal cannula who presented to the ER with complaints of shortness of breath. In the ER he underwent an extensive evaluation. He was found to be hypoxic at 84% of his 3 L nasal cannula. His heart rate was elevated at 148. Initial laboratory analysis showed an elevated BUN of 23. Slightly elevated troponin of 0.47 and an elevated BNP of 12,200. Chest x-ray showed cardiomegaly without overt heart failure. He was started on a Cardizem drip, bronchodilators, and Solu-Medrol. Despite this he still had increased work of breathing and he was subsequently admitted to the selective care unit. By the morning after admission his breathing had improved significantly. Cardiology was consulted. Patient seen and examined at bedside. Still feeling short of breath but better than yesterday. He has a chronic cough which is unchanged. He did not feel his heart racing on arrival to the ER. He states that his last drink was at 11 PM the night prior to admission. He has been using his home oxygen taking all of his inhalers, and has not missed any doses of medications. He sees Dr. Georges once monthly and gets all of his refills. He has been doing well since March until this episode. He denies any unusual fevers or chills. Objective - Vital Signs Vital signs: Vital Signs Temp 97.2 F L 10/14/17 08:00 Pulse 93 10/14/17 08:00 Resp 18 10/14/17 08:00 BP 105/54 10/14/17 08:00 Pulse Ox 100 10/14/17 08:00 Intake & Output 10/13/17 10/14/17 10/14/17 18:59 06:59 18:59 Intake Total 275 231 Balance 275 231 Weight 77.111 kg 73.3 kg Intake: IV 270 0.9 180 Diltiazem 50 mg In Sodium 90 Chloride 0.9% 40 ml @ 5 MG/HR 5 mls/hr IV .Q10H [facility] Rx#:[id number] Intake, IV Titration 5 31 Amount Diltiazem 50 mg In Sodium 31 Chloride 0.9% 40 ml @ 10 MG/HR 10 mls/hr IV .Q5H [facility] Rx#:[id number] Diltiazem 50 mg In Sodium 5 Chloride 0.9% 40 ml @ 5 MG/HR 5 mls/hr IV .Q10H [facility] Rx#:[id number] Oral 200 - Exam General: non toxic, mild distress, appears at stated age Derm: warm, dry Head: atraumatic, normocephalic, symmetric Eyes: EOMI, no lid lag, anicteric sclera Mouth: no lip lesion, mucus membranes moist Cardiovascular: S1S2 tachycardic and irregular, no murmur, positive posterior tibial pulse bilateral, Lungs: Wheezes and rhonchi bilaterally, paroxysmal chest wall movement, barrel chested , no accessory muscle use Abdominal: soft, nontender to palpation, no guarding, no appreciable organomegaly Ext: no gross muscle atrophy, no edema, no contractures Neuro: CN II-XI grossly intact, no focal neuro deficits Psych: Alert, oriented, appropriate affect - Labs CBC & Chem 7: 10/14/17 05:52 10/14/17 13:14 Labs: Abnormal Lab Results - Last 24 Hours (Table) 10/13/17 10/13/17 10/13/17 Range/Units 18:08 18:08 18:08 RBC 3.26 L (4.30-5.90) m/uL Hgb 8.6 L (13.0-17.5) gm/dL Hct 29.5 L (39.0-53.0) % MCHC 29.2 L (31.0-37.0) g/dL RDW 18.3 H (11.5-15.5) % Lymphocytes # (1.0-4.8) k/uL PT (9.0-12.0) sec INR (<1.2) APTT (22.0-30.0) sec VBG pCO2 (37-51) mmHg VBG HCO3 (24-28) mmol/L Sodium (137-145) mmol/L Potassium (3.5-5.1) mmol/L BUN 23 H (9-20) mg/dL Glucose 120 H (74-99) mg/dL POC Glucose (mg/dL) (75-99) mg/dL Total Bilirubin 1.4 H (0.2-1.3) mg/dL Troponin I 0.035 H* (0.000-0.034) ng/mL 10/13/17 10/13/17 10/13/17 Range/Units 18:08 18:14 18:30 RBC (4.30-5.90) m/uL Hgb (13.0-17.5) gm/dL Hct (39.0-53.0) % MCHC (31.0-37.0) g/dL RDW (11.5-15.5) % Lymphocytes # (1.0-4.8) k/uL PT 15.2 H (9.0-12.0) sec INR 1.7 H (<1.2) APTT 31.4 H (22.0-30.0) sec VBG pCO2 56 H (37-51) mmHg VBG HCO3 29 H (24-28) mmol/L Sodium (137-145) mmol/L Potassium (3.5-5.1) mmol/L BUN (9-20) mg/dL Glucose (74-99) mg/dL POC Glucose (mg/dL) 132 H (75-99) mg/dL Total Bilirubin (0.2-1.3) mg/dL Troponin I (0.000-0.034) ng/mL 10/13/17 10/14/17 10/14/17 Range/Units 23:43 05:52 05:52 RBC 2.96 L (4.30-5.90) m/uL Hgb 8.0 L (13.0-17.5) gm/dL Hct 27.6 L (39.0-53.0) % MCHC 28.8 L (31.0-37.0) g/dL RDW 18.4 H (11.5-15.5) % Lymphocytes # 0.4 L (1.0-4.8) k/uL PT (9.0-12.0) sec INR (<1.2) APTT (22.0-30.0) sec VBG pCO2 (37-51) mmHg VBG HCO3 (24-28) mmol/L Sodium (137-145) mmol/L Potassium (3.5-5.1) mmol/L BUN (9-20) mg/dL Glucose (74-99) mg/dL POC Glucose (mg/dL) (75-99) mg/dL Total Bilirubin (0.2-1.3) mg/dL Troponin I 0.047 H* 0.037 H* (0.000-0.034) ng/mL 10/14/17 10/14/17 Range/Units 05:52 05:59 RBC (4.30-5.90) m/uL Hgb (13.0-17.5) gm/dL Hct (39.0-53.0) % MCHC (31.0-37.0) g/dL RDW (11.5-15.5) % Lymphocytes # (1.0-4.8) k/uL PT (9.0-12.0) sec INR (<1.2) APTT (22.0-30.0) sec VBG pCO2 (37-51) mmHg VBG HCO3 (24-28) mmol/L Sodium 136 L (137-145) mmol/L Potassium 5.4 H (3.5-5.1) mmol/L BUN 31 H (9-20) mg/dL Glucose 173 H (74-99) mg/dL POC Glucose (mg/dL) 188 H (75-99) mg/dL Total Bilirubin 1.9 H (0.2-1.3) mg/dL Troponin I (0.000-0.034) ng/mL Assessment and Plan Assessment: Acute exacerbation of COPD with acute on chronic hypoxic respiratory failure - Duoneb 4 times daily, when necessary bronchodilators - symbicort - Solumedrol IV - if no improvement in AM then consult Dr. Virk. - Doxycycline -Pulmonary hygiene Hyperkalemia - D/C MVI - Lasix X 1 - recheck at 1300 A. fib with RVR with elevated troponin - Troponin likely elevated secondary to demand ischemia -Serial troponin - cardizem gtt - Await cardiology consult - Continue Xarelto - tele - echo Decompensated systolic CHF EF 50-55% - No ACEI secondary to hyperkalemia, No BB due to COPD - lasix IV BID - Reviewed new echo and EF now <20% with severe global hypokinesis EtOH abuse -[facility] protocol -Thiamine and folic acid Chronic anemia currently at baseline -Patient denied evidence of GI bleeding -Serial CBC as outpatient Hypertension, controlled -Continue home medications Dyslipidemia -Continue statin DVT prophylaxis: Xarelto Discussed with: Patient, nursing, case management Anticipated discharge: 2-[address]: Home with home health A total of 45 minutes was spent on the care of this complex patient more than 50 % of the time was spent in counseling and care coordination.
--- NOTE | 2017-10-14 10:50 | P.CRDCN ---
<Lexi Danielson E - Last Filed: 10/14/17 10:52> History of Present Illness Consult date: 10/14/17 Requesting physician: Zainab Trevino Consult reason: atrial fibrillation, congestive heart failure Chief complaint: Shortness of breath History of present illness: This is a 72-year-old gentleman with history of chronic alcoholism, anemia, nicotine dependence, paroxysmal atrial fibrillation, congestive heart failure with preserved LV function, COPD with home O2 use, who has had multiple admissions to the hospital for atrial fibrillation in the past. He presents to the hospital on this occasion with symptoms of progressively worsening shortness of breath as well as significant abdominal distention and swelling. His EKG on arrival here showed atrial fibrillation with rapid ventricular response. Chest x-ray showed cardiomegaly with no congestive heart failure. Blood pressure on arrival 108/60, heart rate in the 140s, 98% on 3 L of oxygen. At pressure this morning 105/50, heart rate in the 90s, percent on 2 L of oxygen. White blood cell count on admission 4.5, hemoglobin 8.0, platelet count 198. Sodium 136, potassium 5.4, BUN 31, creatinine 1.0. Magnesium level I.7 on admission. BNP level 12,200, troponins 0.035, 0.047, 0.037. Patient was initiated on IV Cardizem in the emergency room, he continues to be on a drip at 10 mg per hour. He was also given a one-time dose of IV Lasix. Patient is on xarelto 20 mg daily for anticoagulation. At time of my examination this morning, patient is sitting up in bed, he states he can not breathe well at all when he is lying flat, with minimal exertion, just walking to the bathroom he becomes extremely short of breath. 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 History of Any Multi-Drug Resistant Organisms: None Reported Past Surgical History: Back Surgery, Hernia Repair Additional Past Surgical History / Comment(s): right shoulder surgery, bilateral cataract surgery, umbilical hernia surgery, kidney stones removal, hammer toe surgery X3 with subsequent amputation of the second toe on right foot , pain injections through neurology, colonoscopy Past Anesthesia/Blood Transfusion Reactions: No Reported Reaction Past Psychological History: No Psychological Hx Reported Additional Psychological History / Comment(s): Lives with friend, Bekah Arriaga. she lives in the upstairs of his home. Smoking Status: Current every day smoker Past Alcohol Use History: Daily Additional Past Alcohol Use History / Comment(s): Smokes 1 PPD, USUALLY DRINKS "at least" A FIFTH OF VODKA BETWEEN 9PM-MIDNIGHT DAILY Past Drug Use History: None Reported - Past Family History Father Family Medical History: Diabetes Mellitus Mother History Unknown: Yes Additional Family Medical History / Comment(s): 2001 Medications and Allergies Home Medications Medication Instructions Recorded Confirmed Type Albuterol Sulfate [Proair Hfa] 2 puff INHALATION RT-Q6H PRN 09/14/16 10/14/17 History Rivaroxaban [Xarelto] 20 mg PO DAILY 03/28/17 10/14/17 History HYDROcodone/APAP 10-325MG [[place] 1 tab PO Q6H PRN 04/13/17 10/14/17 History 10-325] Ipratropium [place] [Atrovent Hfa] 2 puff INHALATION RT-QID PRN 10/14/17 History Ipratropium-Albuterol Nebulize 3 ml INHALATION RT-TID PRN 10/14/17 10/14/17 History [Duoneb 0.5 mg-3 mg/3 ml Soln] Allergies Allergy/AdvReac Type Severity Reaction Status Date / Time cephalexin monohydrate Allergy Rash/Hives Verified 10/13/17 19:58 [From Keflex] Physical Exam Vitals: Vital Signs Temp Pulse Pulse Resp BP BP Pulse Ox 10/14/17 08:00 97.2 F L 93 18 105/54 100 10/14/17 07:58 118 H 20 10/14/17 07:43 120 H 24 10/14/17 07:40 124 H 20 10/14/17 03:32 96.3 F L 124 H 20 104/76 98 10/14/17 00:00 98.9 F 129 H 20 118/67 99 10/13/17 23:53 114 H 10/13/17 23:39 98 10/13/17 23:37 120 H 10/13/17 20:06 97 F L 154 H 30 H 125/91 84 L 10/13/17 19:40 130 H 16 123/67 100 10/13/17 17:39 98.2 F 148 H 24 108/64 98 Intake and Output 10/13/17 10/14/17 10/14/17 22:59 06:59 14:59 Intake Total 35 240 231 Balance 35 240 231 Intake: IV 30 240 0.9 20 160 Diltiazem 50 mg In Sodium 10 80 Chloride 0.9% 40 ml @ 5 MG/HR 5 mls/hr IV .Q10H [facility] Rx#:[id number] Intake, IV Titration 5 31 Amount Diltiazem 50 mg In Sodium 31 Chloride 0.9% 40 ml @ 10 MG/HR 10 mls/hr IV .Q5H [facility] Rx#:[id number] Diltiazem 50 mg In Sodium 5 Chloride 0.9% 40 ml @ 5 MG/HR 5 mls/hr IV .Q10H [facility] Rx#:[id number] Oral 200 Other: Weight 77.111 kg 73.3 kg PHYSICAL EXAMINATION: GENERAL: 72-year-old gentleman in mild respiratory distress at the time of my examination. HEENT: Head is atraumatic, normocephalic. Pupils equal, round. Sclera anicteric. Conjunctiva are clear. Mucous membranes of the mouth are moist. Neck is supple. There is elevated jugular venous pressure.] bruit is heard. HEART EXAMINATION: Heart S1 and S2 irregularly irregular CHEST EXAMINATION: Lungs reveal scattered coarse wheezing throughout with decreased air exchange. ABDOMEN: Firm, distended, hepatomegaly noted . EXTREMITIES: 2+ peripheral pulses with no evidence of peripheral edema and no calf tenderness noted. NEUROLOGIC patient is awake, alert and oriented -3. . Results 10/14/17 05:52 10/14/17 05:52 Cardiac Enzymes 10/13/17 10/13/17 10/13/17 Range/Units 18:08 18:08 23:43 AST 35 (17-59) U/L CK-MB (CK-2) 2.3 2.2 (0.0-2.4) ng/mL Troponin I 0.035 H* 0.047 H* (0.000-0.034) ng/mL 10/14/17 10/14/17 Range/Units 05:52 05:52 AST 29 (17-59) U/L CK-MB (CK-2) 2.1 (0.0-2.4) ng/mL Troponin I 0.037 H* (0.000-0.034) ng/mL Coagulation 10/13/17 Range/Units 18:08 PT 15.2 H (9.0-12.0) sec APTT 31.4 H (22.0-30.0) sec CBC 10/13/17 10/14/17 Range/Units 18:08 05:52 WBC 6.6 4.5 (3.8-10.6) k/uL RBC 3.26 L 2.96 L (4.30-5.90) m/uL Hgb 8.6 L 8.0 L (13.0-17.5) gm/dL Hct 29.5 L 27.6 L (39.0-53.0) % Plt Count 226 198 (150-450) k/uL Comprehensive Metabolic Panel 10/13/17 10/14/17 Range/Units 18:08 05:52 Sodium 140 136 L (137-145) mmol/L Potassium 4.7 5.4 H (3.5-5.1) mmol/L Chloride 100 98 (98-107) mmol/L Carbon Dioxide 29 25 (22-30) mmol/L BUN 23 H 31 H (9-20) mg/dL Creatinine 0.90 1.00 (0.66-1.25) mg/dL Glucose 120 H 173 H (74-99) mg/dL Calcium 8.8 8.5 (8.4-10.2) mg/dL AST 35 29 (17-59) U/L ALT 28 27 (21-72) U/L Alkaline Phosphatase 94 82 (38-126) U/L Total Protein 6.8 6.4 (6.3-8.2) g/dL Albumin 3.9 3.6 (3.5-5.0) g/dL Current Medications Generic Name Dose Route Start Last Admin Trade Name Freq PRN Reason Stop Dose Admin Hydrocodone Bitart/Acetaminophen 1 each 10/13/17 21:10 [place] 5-325 PO Q4HR PRN Moderate Pain Albuterol Sulfate 2.5 mg 10/14/17 10:08 Ventolin Nebulized INHALATION RT-Q2H PRN Shortness Of Breath Or Wheezing Albuterol/Ipratropium 3 ml 10/14/17 12:00 Duoneb 0.5 Mg-3 Mg/3 Ml Soln INHALATION RT-Q4H [facility] Aspirin 81 mg 10/14/17 09:00 10/14/17 08:44 Aspirin PO 81 mg DAILY [facility] Administration Benzonatate 100 mg 10/13/17 22:00 10/14/17 08:45 Tessalon Perles PO 100 mg TID [facility] Administration Budesonide/Formoterol Fumarate 2 puff 10/13/17 21:15 10/14/17 07:43 Symbicort 160-4.5 Mcg Inhaler INHALATION 2 puff RT-BID [facility] Administration Famotidine 20 mg 10/14/17 09:00 10/14/17 08:45 Pepcid PO 20 mg BID [facility] Administration Diltiazem HCl 50 mg/ Sodium 50 mls @ 10 mls/hr 10/14/17 04:30 10/14/17 08:51 Chloride IV 10 mg/hr .Q5H [facility] 10 mls/hr 10 MG/HR Administration Lorazepam 1 mg 10/13/17 21:09 Ativan IV Q2HR PRN CIWA 8 or 9 Lorazepam 1 mg 10/13/17 21:09 10/13/17 23:33 Ativan IV 1 mg Q1HR PRN Administration CIWA 10 to 15 Lorazepam 2 mg 10/13/17 21:09 Ativan IV 10/15/17 21:09 Q10M PRN CIWA 16 or higher Methylprednisolone Sodium Succinate 60 mg 10/13/17 21:30 10/14/17 05:45 Solu-Medrol IV 10/14/17 18:01 60 mg Q6HR [facility] Administration Metoprolol Tartrate 25 mg 10/13/17 21:15 10/14/17 08:45 Lopressor PO 25 mg BID [facility] Administration Naloxone HCl 0.2 mg 10/13/17 19:42 Narcan IV Q2M PRN Opioid Reversal Nicotine 1 patch 10/14/17 09:00 10/14/17 08:48 Habitrol 21mg/24hr Patch TRANSDERM Not Given DAILY [facility] Pravastatin Sodium 40 mg 10/13/17 21:15 10/13/17 22:24 Pravachol PO 40 mg HS [facility] Administration Rivaroxaban 20 mg 10/14/17 09:00 10/14/17 08:45 Xarelto PO 20 mg DAILY [facility] Administration Tamsulosin HCl 0.4 mg 10/13/17 21:15 10/13/17 22:24 Flomax PO 0.4 mg HS [facility] Administration Thiamine HCl 100 mg 10/13/17 17:00 10/13/17 22:24 Vitamin B-1 PO 100 mg BID@1200,1700 [facility] Administration Intake and Output 10/13/17 10/14/17 10/14/17 22:59 06:59 14:59 Intake Total 35 240 231 Balance 35 240 231 Intake: IV 30 240 0.9 20 160 Diltiazem 50 mg In Sodium 10 80 Chloride 0.9% 40 ml @ 5 MG/HR 5 mls/hr IV .Q10H [facility] Rx#:[id number] Intake, IV Titration 5 31 Amount Diltiazem 50 mg In Sodium 31 Chloride 0.9% 40 ml @ 10 MG/HR 10 mls/hr IV .Q5H [facility] Rx#:[id number] Diltiazem 50 mg In Sodium 5 Chloride 0.9% 40 ml @ 5 MG/HR 5 mls/hr IV .Q10H [facility] Rx#:[id number] Oral 200 Other: Weight 77.111 kg 73.3 kg 10/14/17 05:52 10/14/17 05:52 EKG Interpretations (text) EKG shows atrial fibrillation with a rapid ventricular response. Assessment and Plan Plan: Assessment and plan #1 atrial fibrillation with rapid ventricular response, in a patient with known paroxysmal atrial fibrillation. #2 chronic alcoholism #3 nicotine dependence #4 congestive heart failure with preserved left ventricular systolic function, acute on chronic. Most recent echocardiogram with Doppler study was performed in March 2017 which revealed an ejection fraction of 50-55%. #5 COPD with home O2 use Plan We will obtain a repeat echocardiogram with Doppler study. We will start the patient on verapamil sr 240mg to optimize rate control, discontinue the Cardizem drip. Check free T4 and TSH level. Give the patient IV Lasix twice a day. Further recommendations to follow. DNP note has been reviewed, I agree with a documented findings and plan of care. Patient was seen and examined. <Isacc Mcpherson - Last Filed: 10/14/17 11:27> Physical Exam Vitals: Vital Signs Temp Pulse Pulse Resp BP BP Pulse Ox 10/14/17 08:00 97.2 F L 93 18 105/54 100 10/14/17 07:58 118 H 20 10/14/17 07:43 120 H 24 10/14/17 07:40 124 H 20 10/14/17 03:32 96.3 F L 124 H 20 104/76 98 10/14/17 00:00 98.9 F 129 H 20 118/67 99 10/13/17 23:53 114 H 10/13/17 23:39 98 10/13/17 23:37 120 H 10/13/17 20:06 97 F L 154 H 30 H 125/91 84 L 10/13/17 19:40 130 H 16 123/67 100 10/13/17 17:39 98.2 F 148 H 24 108/64 98 Intake and Output 10/13/17 10/14/17 10/14/17 22:59 06:59 14:59 Intake Total 35 240 231 Balance 35 240 231 Intake: IV 30 240 0.9 20 160 Diltiazem 50 mg In Sodium 10 80 Chloride 0.9% 40 ml @ 5 MG/HR 5 mls/hr IV .Q10H [facility] Rx#:[id number] Intake, IV Titration 5 31 Amount Diltiazem 50 mg In Sodium 31 Chloride 0.9% 40 ml @ 10 MG/HR 10 mls/hr IV .Q5H [facility] Rx#:[id number] Diltiazem 50 mg In Sodium 5 Chloride 0.9% 40 ml @ 5 MG/HR 5 mls/hr IV .Q10H [facility] Rx#:[id number] Oral 200 Other: Weight 77.111 kg 73.3 kg 73.3 kg Results 10/14/17 05:52 10/14/17 05:52 Cardiac Enzymes 10/13/17 10/13/17 10/13/17 Range/Units 18:08 18:08 23:43 AST 35 (17-59) U/L CK-MB (CK-2) 2.3 2.2 (0.0-2.4) ng/mL Troponin I 0.035 H* 0.047 H* (0.000-0.034) ng/mL 10/14/17 10/14/17 Range/Units 05:52 05:52 AST 29 (17-59) U/L CK-MB (CK-2) 2.1 (0.0-2.4) ng/mL Troponin I 0.037 H* (0.000-0.034) ng/mL Coagulation 10/13/17 Range/Units 18:08 PT 15.2 H (9.0-12.0) sec APTT 31.4 H (22.0-30.0) sec CBC 10/13/17 10/14/17 Range/Units 18:08 05:52 WBC 6.6 4.5 (3.8-10.6) k/uL RBC 3.26 L 2.96 L (4.30-5.90) m/uL Hgb 8.6 L 8.0 L (13.0-17.5) gm/dL Hct 29.5 L 27.6 L (39.0-53.0) % Plt Count 226 198 (150-450) k/uL Comprehensive Metabolic Panel 10/13/17 10/14/17 Range/Units 18:08 05:52 Sodium 140 136 L (137-145) mmol/L Potassium 4.7 5.4 H (3.5-5.1) mmol/L Chloride 100 98 (98-107) mmol/L Carbon Dioxide 29 25 (22-30) mmol/L BUN 23 H 31 H (9-20) mg/dL Creatinine 0.90 1.00 (0.66-1.25) mg/dL Glucose 120 H 173 H (74-99) mg/dL Calcium 8.8 8.5 (8.4-10.2) mg/dL AST 35 29 (17-59) U/L ALT 28 27 (21-72) U/L Alkaline Phosphatase 94 82 (38-126) U/L Total Protein 6.8 6.4 (6.3-8.2) g/dL Albumin 3.9 3.6 (3.5-5.0) g/dL Current Medications Generic Name Dose Route Start Last Admin Trade Name Freq PRN Reason Stop Dose Admin Hydrocodone Bitart/Acetaminophen 1 each 10/13/17 21:10 [place] 5-325 PO Q4HR PRN Moderate Pain Albuterol Sulfate 2.5 mg 10/14/17 10:08 Ventolin Nebulized INHALATION RT-Q2H PRN Shortness Of Breath Or Wheezing Albuterol/Ipratropium 3 ml 10/14/17 12:00 Duoneb 0.5 Mg-3 Mg/3 Ml Soln INHALATION RT-Q4H [facility] Aspirin 81 mg 10/14/17 09:00 10/14/17 08:44 Aspirin PO 81 mg DAILY [facility] Administration Benzonatate 100 mg 10/13/17 22:00 10/14/17 08:45 Tessalon Perles PO 100 mg TID [facility] Administration Budesonide/Formoterol Fumarate 2 puff 10/13/17 21:15 10/14/17 07:43 Symbicort 160-4.5 Mcg Inhaler INHALATION 2 puff RT-BID [facility] Administration Famotidine 20 mg 10/14/17 09:00 10/14/17 08:45 Pepcid PO 20 mg BID [facility] Administration Diltiazem HCl 50 mg/ Sodium 50 mls @ 10 mls/hr 10/14/17 04:30 10/14/17 08:51 Chloride IV 10 mg/hr .Q5H [facility] 10 mls/hr 10 MG/HR Administration Lorazepam 1 mg 10/13/17 21:09 Ativan IV Q2HR PRN CIWA 8 or 9 Lorazepam 1 mg 10/13/17 21:09 10/13/17 23:33 Ativan IV 1 mg Q1HR PRN Administration CIWA 10 to 15 Lorazepam 2 mg 10/13/17 21:09 Ativan IV 10/15/17 21:09 Q10M PRN CIWA 16 or higher Methylprednisolone Sodium Succinate 60 mg 10/13/17 21:30 10/14/17 05:45 Solu-Medrol IV 10/14/17 18:01 60 mg Q6HR [facility] Administration Metoprolol Tartrate 25 mg 10/13/17 21:15 10/14/17 08:45 Lopressor PO 25 mg BID [facility] Administration Naloxone HCl 0.2 mg 10/13/17 19:42 Narcan IV Q2M PRN Opioid Reversal Nicotine 1 patch 10/14/17 09:00 10/14/17 08:48 Habitrol 21mg/24hr Patch TRANSDERM Not Given DAILY [facility] Pravastatin Sodium 40 mg 10/13/17 21:15 10/13/17 22:24 Pravachol PO 40 mg HS [facility] Administration Rivaroxaban 20 mg 10/14/17 09:00 10/14/17 08:45 Xarelto PO 20 mg DAILY [facility] Administration Tamsulosin HCl 0.4 mg 10/13/17 21:15 10/13/17 22:24 Flomax PO 0.4 mg HS [facility] Administration Thiamine HCl 100 mg 10/13/17 17:00 10/13/17 22:24 Vitamin B-1 PO 100 mg BID@1200,1700 [facility] Administration Verapamil HCl 240 mg 10/14/17 11:00 Isoptin Sr PO DAILY [facility] Intake and Output 10/13/17 10/14/17 10/14/17 22:59 06:59 14:59 Intake Total 35 240 231 Balance 35 240 231 Intake: IV 30 240 0.9 20 160 Diltiazem 50 mg In Sodium 10 80 [place] 0.9% 40 ml @ 5 MG/HR 5 mls/hr IV .Q10H [facility] Rx#:[id number] Intake, IV Titration 5 31 Amount Diltiazem 50 mg In Sodium 31 Chloride 0.9% 40 ml @ 10 MG/HR 10 mls/hr IV .Q5H [facility] Rx#:[id number] Diltiazem 50 mg In Sodium 5 Chloride 0.9% 40 ml @ 5 MG/HR 5 mls/hr IV .Q10H [facility] Rx#:[id number] Oral 200 Other: Weight 77.111 kg 73.3 kg 73.3 kg Patient Weight 10/15/17 06:59 Weight 73.3 kg 10/14/17 05:52 10/14/17 05:52
[2017-10-14] MEDS: THIAMINE 100 MG TAB PO SCH ×2 (11:26→15:48)
[2017-10-14] MEDS: VERAPAMIL SR 240 MG TABLET.ER PO SCH (11:28)
[2017-10-14 11:47] LABS: Glucose,Whole Blood 172 mg/dL (75-99)
[2017-10-14] MEDS ORDERED: MULTIVITAMINS, THERA 1 EACH TAB PO SCH (12:00)
[2017-10-14] MEDS: IPRATROPIUM-ALBUTEROL 3 ML NEB INHALATION SCH ×3 (12:02→20:11)
--- NOTE | 2017-10-14 13:22 | ECHOF ---
Referral Reason:chf, afib MEASUREMENTS -------- HEIGHT: 182.9 cm WEIGHT: 73.0 kg BP: 105/54 RVIDd: 3.5 cm (< 3.3) IVSd: 1.5 cm (0.6 - 1.1) LVIDd: 5.8 cm (3.9 - 5.3) LVPWd: 1.5 cm (0.6 - 1.1) IVSs: 1.6 cm LVIDs: 5.5 cm LVPWs: 1.6 cm LAESV Index (A-L): 41.32 ml/m Ao Diam: 3.5 cm (2.0 - 3.7) AV Cusp: 1.6 cm (1.5 - 2.6) LA Diam: 4.5 cm (2.7 - 3.8) EPSS: 1.3 cm MV E Patel: 1.01 m/s MV DecT: 169 ms MV A Patel: 0.01 m/s MV E/A Ratio: 384.71 AV maxP.17 mmHg AV meanP.06 mmHg RAP: 15.00 mmHg RVSP: 38.92 mmHg MV EF SLOPE: 142.03 mm/s (70 - 150) MV EXCURSION: 1.20 cm (> 18.000) FINDINGS -------- Resting tachycardia (HR>100bpm). This was a technically difficult study with suboptimal views. Pt. not compliant. Patient refused Lumason The left ventricular size is normal. There is moderate concentric left ventricular hypertrophy. T here is severe global hypokinesis of LV . Overall left ventricular systolic function is severely im paired with, an EF < 20%. The right ventricle is mild to moderately enlarged. LA is severely dilated >40 ml/m2 The right atrium is markedly enlarged. There is mild aortic valve sclerosis. There is no evidence of aortic regurgitation. There is mild aortic stenosis present. Peak/mean gradient across the Aortic Valve is 17.17mmHg / 11.06mmHg. AO V is possible Bicuspid. The mitral valve leaflets are mildly thickened. Aakz-cz-gcccpvok mitral regurgitation is present. Qkxl-qr-axqxedrv tricuspid regurgitation present. There is borderline pulmonary hypertension. The right ventricular systolic pressure, as measured by Doppler, is 38.92mmHg. Trace/mild (physiologic) pulmonic regurgitation. The aortic root is mildy dilated, up to 4.2 cm. The inferior vena cava is dilated with poor inspiratory collapse which is consistent with estimated r ight atrial pressure of 20 mmHg. There is no pericardial effusion. CONCLUSIONS -------- 1. Resting tachycardia (HR>100bpm). 2. This was a technically difficult study with suboptimal views. 3. Pt. not compliant. 4. Patient refused Lumason 5. The left ventricular size is normal. 6. There is moderate concentric left ventricular hypertrophy. 7. There is severe global hypokinesis of LV . 8. Overall left ventricular systolic function is severely impaired with, an EF < 20%. 9. The right ventricle is mild to moderately enlarged. 10. LA is severely dilated >40 ml/m2 11. The right atrium is markedly enlarged. 12. There is mild aortic valve sclerosis. 13. There is mild aortic stenosis present. 14. Peak/mean gradient across the Aortic Valve is 17.17mmHg / 11.06mmHg. 15. AOV is possible Bicuspid. 16. The mitral valve leaflets are mildly thickened. 17. Hdtu-ro-xdbvqnlx mitral regurgitation is present. 18. Ccwy-ss-mvdsmmfn tricuspid regurgitation present. 19. There is borderline pulmonary hypertension. 20. The right ventricular systolic pressure, as measured by Doppler, is 38.92mmHg. 21. Trace/mild (physiologic) pulmonic regurgitation. 22. The aortic root is mildy dilated, up to 4.2 cm. 23. The inferior vena cava is dilated with poor inspiratory collapse which is consistent with estimat ed right atrial pressure of 20 mmHg. 24. There is no pericardial effusion. LICENSED PHARMACIST: Blake Mullins RDCS
[2017-10-14 13:48] LABS: Calcium 8.3 mg/dL (8.4-10.2); Potassium 5.6 mmol/L (3.5-5.1)
[2017-10-14 16:44] LABS: Glucose,Whole Blood 186 mg/dL (75-99)
[2017-10-14] MEDS ORDERED: SODIUM POLYSTYRENE SULFONATE 15 GM/60 ML BOTTLE PO STA (18:01)
--- NOTE | 2017-10-14 18:28 | XR ---
EXAMINATION TYPE: XR chest 1V portable DATE OF EXAM: 10/14/2017 COMPARISON: 10/13/2017 HISTORY: Difficulty breathing TECHNIQUE: Single frontal view of the chest is obtained. FINDINGS: Heart is enlarged. There is no heart failure. There are chest leads. There is right should er prosthesis. Costophrenic angles are clear. IMPRESSION: Cardiomegaly. No active cardiopulmonary disease. No change.
[2017-10-14] MEDS: PRAVASTATIN SODIUM 40 MG TAB PO SCH (20:00)
[2017-10-14] MEDS: TAMSULOSIN 0.4 MG CAP.ER.24H PO SCH (20:00)
[2017-10-14] MEDS: DOXYCYCLINE 50 MG CAP PO SCH (20:01)
[2017-10-14] MEDS: HYDROcodone/APAP 5-325MG 1 EACH TAB PO PRN (20:02)
[2017-10-14 21:32] LABS: Glucose,Whole Blood 206 mg/dL (75-99)
[2017-10-14] MEDS: LORazepam 2 MG/ML INJ IV PRN (23:18)
[2017-10-15] MEDS: IPRATROPIUM-ALBUTEROL 3 ML NEB INHALATION SCH ×6 (00:18→19:48)
[2017-10-15 06:13] LABS: Glucose,Whole Blood 174 mg/dL (75-99)
[2017-10-15 06:28] LABS: Anisocytosis Slight; HCT 25.2 % (39.0-53.0); HGB 7.4 gm/dL (13.0-17.5); Hypochromasia Marked; MCH 26.6 pg (25.0-35.0); MCHC 29.2 g/dL (31.0-37.0); MCV 90.9 fL (80.0-100.0); Mean Platelet Volume 8.4; Platelet Count 201 k/uL (150-450); RBC 2.77 m/uL (4.30-5.90); RDW 18.5 % (11.5-15.5); WBC 4.6 k/uL (3.8-10.6)
[2017-10-15 07:19] LABS: Potassium 5.1 mmol/L (3.5-5.1)
[2017-10-15] MEDS: SYMBICORT 160-4.5 MCG INHALER INHALATION SCH (07:27)
[2017-10-15] MEDS: NICOTINE 21MG/24HR PATCH TRANSDERM SCH (07:32)
[2017-10-15] MEDS: ASPIRIN 81 MG PO SCH (07:50)
[2017-10-15] MEDS: BENZONATATE 100 MG CAP PO SCH ×3 (07:50→21:40)
[2017-10-15] MEDS: DOXYCYCLINE 50 MG CAP PO SCH ×2 (07:51→21:40)
[2017-10-15] MEDS: FAMOTIDINE 20 MG TAB PO SCH ×2 (07:51→21:40)
[2017-10-15] MEDS: THIAMINE 100 MG TAB PO SCH ×2 (07:51→16:05)
[2017-10-15] MEDS: VERAPAMIL SR 240 MG TABLET.ER PO SCH (07:51)
[2017-10-15] MEDS: FOLIC ACID 1 MG TAB PO SCH (07:52)
[2017-10-15] MEDS: RIVAROXABAN 20 MG TAB PO SCH (07:52)
[2017-10-15] MEDS: METOPROLOL TARTRATE 25 MG TAB PO SCH (07:52)
[2017-10-15] MEDS: predniSONE 20 MG TAB PO SCH (07:54)
[2017-10-15] MEDS: BUDESONIDE 1 MG/2 ML NEBU INHALATION SCH ×2 (11:36→19:48)
[2017-10-15] MEDS: FORMOTEROL FUMARATE 20 MCG/2 ML NEBU INHALATION SCH ×2 (11:36→19:48)
[2017-10-15 11:50] LABS: Glucose,Whole Blood 181 mg/dL (75-99)
--- NOTE | 2017-10-15 13:08 | P.PN ---
Subjective Progress Note Date: 10/15/17 This is a 72-year-old gentleman with history of chronic alcoholism, anemia, nicotine dependence, paroxysmal atrial fibrillation, congestive heart failure with preserved LV function, COPD with home O2 use, who has had multiple admissions to the hospital for atrial fibrillation in the past. He presents to the hospital on this occasion with symptoms of progressively worsening shortness of breath as well as significant abdominal distention and swelling. His EKG on arrival here showed atrial fibrillation with rapid ventricular response. Chest x-ray showed cardiomegaly with no congestive heart failure. Blood pressure on arrival 108/60, heart rate in the 140s, 98% on 3 L of oxygen. At pressure this morning 105/50, heart rate in the 90s, percent on 2 L of oxygen. White blood cell count on admission 4.5, hemoglobin 8.0, platelet count 198. Sodium 136, potassium 5.4, BUN 31, creatinine 1.0. Magnesium level I.7 on admission. BNP level 12,200, troponins 0.035, 0.047, 0.037. Patient was initiated on IV Cardizem in the emergency room, he continues to be on a drip at 10 mg per hour. He was also given a one-time dose of IV Lasix. Patient is on xarelto 20 mg daily for anticoagulation. At time of my examination this morning, patient is sitting up in bed, he states he can not breathe well at all when he is lying flat, with minimal exertion, just walking to the bathroom he becomes extremely short of breath. 10/15/2017 Patient was seen and examined this morning, IV Cardizem is discontinued yesterday and the patient was initiated on verapamil. Echocardiogram with Doppler study was performed which revealed an ejection fraction of less than 20% , severe global hypokinesia, moderate concentric LVH, severely dilated left atrium, mild to moderate MR, mild to moderate TR with borderline pulmonary hypertension. We will discontinue the verapamil and increase the metoprolol to 100 mg by mouth twice a day. Blood pressure today 100/60 with a heart rate in the 1 teens. White blood cell count 4.6, hemoglobin down to 7.4, platelet count 201. Sodium 133, potassium 5.1, BUN 56, creatinine 1.7. Objective - Vital Signs Vital signs: Vital Signs Temp 97.5 F L 10/15/17 11:10 Pulse 116 H 10/15/17 11:57 Resp 20 10/15/17 11:11 BP 100/69 10/15/17 11:10 Pulse Ox 98 10/15/17 11:10 Intake & Output 10/14/17 10/15/17 10/15/17 18:59 06:59 18:59 Intake Total 671 20 Output Total 100 Balance 671 -80 Weight 73.3 kg 54.5 kg Intake: IV 20 0.9 20 Intake, IV Titration 31 Amount Diltiazem 50 mg In Sodium 31 Chloride 0.9% 40 ml @ 10 MG/HR 10 mls/hr IV .Q5H [facility] Rx#:[id number] Oral 640 Output: Urine 100 Other: Voiding Method Urinal - Exam PHYSICAL EXAMINATION: GENERAL: 72-year-old gentleman in mild respiratory distress at the time of my examination. HEENT: Head is atraumatic, normocephalic. Pupils equal, round. Sclera anicteric. Conjunctiva are clear. Mucous membranes of the mouth are moist. Neck is supple. There is elevated jugular venous pressure.] bruit is heard. HEART EXAMINATION: Heart S1 and S2 irregularly irregular CHEST EXAMINATION: Lungs reveal scattered coarse wheezing throughout with decreased air exchange. ABDOMEN: Firm, distended, hepatomegaly noted . EXTREMITIES: 2+ peripheral pulses with no evidence of peripheral edema and no calf tenderness noted. NEUROLOGIC patient is awake, alert and oriented -3. - Labs CBC & Chem 7: 10/15/17 05:37 10/15/17 05:37 Labs: Abnormal Lab Results - Last 24 Hours (Table) 10/14/17 10/14/17 10/14/17 Range/Units 13:14 16:41 21:26 RBC (4.30-5.90) m/uL Hgb (13.0-17.5) gm/dL Hct (39.0-53.0) % MCHC (31.0-37.0) g/dL RDW (11.5-15.5) % Sodium 135 L (137-145) mmol/L Potassium 5.6 H (3.5-5.1) mmol/L Chloride 95 L (98-107) mmol/L BUN 38 H (9-20) mg/dL Creatinine (0.66-1.25) mg/dL Glucose 158 H (74-99) mg/dL POC Glucose (mg/dL) 186 H 206 H (75-99) mg/dL Calcium 8.3 L (8.4-10.2) mg/dL 10/15/17 10/15/17 10/15/17 Range/Units 05:37 05:37 06:12 RBC 2.77 L (4.30-5.90) m/uL Hgb 7.4 L (13.0-17.5) gm/dL Hct 25.2 L (39.0-53.0) % MCHC 29.2 L (31.0-37.0) g/dL RDW 18.5 H (11.5-15.5) % Sodium 133 L (137-145) mmol/L Potassium (3.5-5.1) mmol/L Chloride 96 L (98-107) mmol/L BUN 56 H (9-20) mg/dL Creatinine 1.70 H (0.66-1.25) mg/dL Glucose 150 H (74-99) mg/dL POC Glucose (mg/dL) 174 H (75-99) mg/dL Calcium 8.0 L (8.4-10.2) mg/dL 10/15/17 Range/Units 11:47 RBC (4.30-5.90) m/uL Hgb (13.0-17.5) gm/dL Hct (39.0-53.0) % MCHC (31.0-37.0) g/dL RDW (11.5-15.5) % Sodium (137-145) mmol/L Potassium (3.5-5.1) mmol/L Chloride (98-107) mmol/L BUN (9-20) mg/dL Creatinine (0.66-1.25) mg/dL Glucose (74-99) mg/dL POC Glucose (mg/dL) 181 H (75-99) mg/dL Calcium (8.4-10.2) mg/dL Assessment and Plan Plan: Assessment and plan #1 atrial fibrillation with rapid ventricular response, in a patient with known paroxysmal atrial fibrillation. #2 chronic alcoholism #3 nicotine dependence #4 systolic congestive heart failure acute on chronic #5 COPD with home O2 use Plan EchocardiEchocardiogram with Doppler study was, which revealed an ejection fraction of less than 20%. Verapamil will be discontinued and dose of metoprolol increased to 100 mg if blood pressure improves we will add a small dose of UMA inhibitor to his medication regime. DNP note has been reviewed, I agree with a documented findings and plan of care. Patient was seen and examined.
--- NOTE | 2017-10-15 13:17 | P.PN ---
Subjective Progress Note Date: 10/15/17 Principal diagnosis: shortness of breath Patient is a 72 yo CM with a history of alcohol abuse, A. fib, COPD on chronic oxygen at 3 L nasal cannula who presented to the ER with complaints of shortness of breath. In the ER he underwent an extensive evaluation. He was found to be hypoxic at 84% of his 3 L nasal cannula. His heart rate was elevated at 148. Initial laboratory analysis showed an elevated BUN of 23. Slightly elevated troponin of 0.47 and an elevated BNP of 12,200. Chest x-ray showed cardiomegaly without overt heart failure. He was started on a Cardizem drip, bronchodilators, and Solu-Medrol. Despite this he still had increased work of breathing and he was subsequently admitted to the selective care unit. By the morning after admission his breathing had improved significantly. Cardiology was consulted and he was transitioned from cardizem gtt to oral verapamil. Over the evening on 10/14 his work of breathing increased and he was started on Bipap. His echo cam back with an EF of less than 20% and severe global hypokanesis. Patient seen and examined at bedside. Feeling better than at admission but still significantly short of breath. No chest pain, does not feel palpations. No edema. No nausea or vomiting. Asking about seeing Dr. Virk for his breathing and a lung transplant. Discussed with patient that he is not a candidate for a lung tranplant at this point in time. Also informed patient of decreased EF, patient does not seem to comrephend at this point in time, as appears slightly confused likely for his alcohol withdrawal. Objective - Vital Signs Vital signs: Vital Signs Temp 97.5 F L 10/15/17 11:10 Pulse 116 H 10/15/17 11:57 Resp 20 10/15/17 11:11 BP 100/69 10/15/17 11:10 Pulse Ox 98 10/15/17 11:10 Intake & Output 10/14/17 10/15/17 10/15/17 18:59 06:59 18:59 Intake Total 671 20 Output Total 100 Balance 671 -80 Weight 73.3 kg 54.5 kg Intake: IV 20 0.9 20 Intake, IV Titration 31 Amount Diltiazem 50 mg In Sodium 31 Chloride 0.9% 40 ml @ 10 MG/HR 10 mls/hr IV .Q5H [facility] Rx#:[id number] Oral 640 Output: Urine 100 Other: Voiding Method Urinal - Exam General: non toxic, mild distress, appears at stated age Derm: warm, dry Head: atraumatic, normocephalic, symmetric Eyes: EOMI, no lid lag, anicteric sclera Mouth: no lip lesion, mucus membranes moist Cardiovascular: S1S2 tachycardic and irregular, no murmur, positive posterior tibial pulse bilateral, Lungs: rhonchi bilaterally,+ paroxysmal chest wall movement, + barrel chested , no accessory muscle use Abdominal: soft, nontender to palpation, no guarding, no appreciable organomegaly Ext: no gross muscle atrophy, no edema, no contractures Neuro: CN II-XI grossly intact, no focal neuro deficits Psych: Alert, oriented to person, place,year, appropriate affect - Labs CBC & Chem 7: 10/15/17 05:37 10/15/17 05:37 Labs: Abnormal Lab Results - Last 24 Hours (Table) 10/14/17 10/14/17 10/14/17 Range/Units 13:14 16:41 21:26 RBC (4.30-5.90) m/uL Hgb (13.0-17.5) gm/dL Hct (39.0-53.0) % MCHC (31.0-37.0) g/dL RDW (11.5-15.5) % Sodium 135 L (137-145) mmol/L Potassium 5.6 H (3.5-5.1) mmol/L Chloride 95 L (98-107) mmol/L BUN 38 H (9-20) mg/dL Creatinine (0.66-1.25) mg/dL Glucose 158 H (74-99) mg/dL POC Glucose (mg/dL) 186 H 206 H (75-99) mg/dL Calcium 8.3 L (8.4-10.2) mg/dL 10/15/17 10/15/17 10/15/17 Range/Units 05:37 05:37 06:12 RBC 2.77 L (4.30-5.90) m/uL Hgb 7.4 L (13.0-17.5) gm/dL Hct 25.2 L (39.0-53.0) % MCHC 29.2 L (31.0-37.0) g/dL RDW 18.5 H (11.5-15.5) % Sodium 133 L (137-145) mmol/L Potassium (3.5-5.1) mmol/L Chloride 96 L (98-107) mmol/L BUN 56 H (9-20) mg/dL Creatinine 1.70 H (0.66-1.25) mg/dL Glucose 150 H (74-99) mg/dL POC Glucose (mg/dL) 174 H (75-99) mg/dL Calcium 8.0 L (8.4-10.2) mg/dL 10/15/17 Range/Units 11:47 RBC (4.30-5.90) m/uL Hgb (13.0-17.5) gm/dL Hct (39.0-53.0) % MCHC (31.0-37.0) g/dL RDW (11.5-15.5) % Sodium (137-145) mmol/L Potassium (3.5-5.1) mmol/L Chloride (98-107) mmol/L BUN (9-20) mg/dL Creatinine (0.66-1.25) mg/dL Glucose (74-99) mg/dL POC Glucose (mg/dL) 181 H (75-99) mg/dL Calcium (8.4-10.2) mg/dL Assessment and Plan Assessment: Newly discovered systolic cardiomyopathy, decompensated on arrival, EF <20% - D/W cardio stop verapamil and increase metoprolol to 100mg BID - ? need for ischemic eval and timing - no candidate for ACEI at this time due to STANLEY and hyperkalemia yesterday - stric I and O - Daily weights STANLEY - suspect due to forced diureis - hold lasix, no IVF with low EF and increased work of breathing - Avoid additional nephrotoxic agents - follow CR Acute exacerbation of COPD with acute on chronic hypoxic respiratory failure - Duoneb 4 times daily, when necessary bronchodilators - symbicort transitioned to performist and pulmicort - steorids - Consult Pumonary - Doxycycline - Pulmonary hygiene A. fib with RVR with elevated troponin - Troponin likely elevated secondary to demand ischemia -Serial troponins flat - metoprolol - cardio recs appreciated - Continue Xarelto - tele EtOH abuse -CIWA protocol -Thiamine and folic acid Chronic anemia currently at baseline -Patient denied evidence of GI bleeding -Serial CBC as outpatient Hypertension, controlled -Continue home medications Dyslipidemia -Continue statin Hyperkalemia, resolved DVT prophylaxis: Xarelto Discussed with: Patient, nursing, cardiology Anticipated discharge: 2-[address]: Home with home health A total of 35 minutes was spent on the care of this complex patient more than 50 % of the time was spent in counseling and care coordination.
--- NOTE | 2017-10-15 16:11 | P.CNPUL ---
History of Present Illness Consult date: 10/15/17 Reason for consult: dyspnea History of present illness: 72-year-old male patient, known history of advanced COPD with chronic hypoxic respiratory failure in addition to history of chronic alcoholism, history of fall with pulmonary contusion, traumatic rib fracture for which the patient was hospitalized back in 2017, history of chronic atrial fibrillation, CHF, hypertension, CVA involving the temporal lobe, hyperlipidemia, chronic anemia and cervical and lumbar stenosis. The patient continues to [facility] excessively [facility] on a daily basis. The patient presented to the hospital because of worsening shortness of breath a few days duration. He was using his DuoNeb nebulized treatments without any improvement. He was also using the Combivent. The patient is oxygen dependent and utilize oxygen at 3 L at all times. His sputum production was essentially whitish and there was no hemoptysis or pleurisy. In the hospital, the patient was further found to be nature fibrillation with rapid ventricular response. The patient was thought to be CHF knowing that his proBNP level was quite elevated at 12,200. Troponins were also mildly elevated at 0.04 and 0.03 respectively. The patient was started on diuretics knowing that the chest x-ray showed cardiomegaly and echocardiac Dimas showed improvement in the left atrial ejection fraction with an EF of around 20%. The patient diuresed adequately and the patient became prerenal and the creatinine is up to 1.7. Currently is diuretics is on hold. Meanwhile COPD exacerbations being still treated with a combination of bronchodilators and steroids. The patient is currently on Pulmicort Respules, DuoNeb neb last treatment [id number], prednisone burst taper starting with 40 mg and the patient is also on doxycycline as an empiric antibiotic coverage. No signs of any delirium tremens. His resting comfortably in bed. He remains in atrial fibrillation. Is on Xarelto for anticoagulation. He is still smoking. Review of Systems Constitutional: Reports fatigue, Reports lethargy, Reports weakness, Reports weight loss Eyes: denies blurred vision, denies bulging eye, denies decreased vision Ears: deny: decreased hearing, ear discharge, earache, tinnitus Ears, nose, mouth and throat: Denies headache, Denies sore throat Cardiovascular: Reports decreased exercise tolerance, Reports dyspnea on exertion, Reports irregular heart beat, Reports paroxysmal nocturnal dyspnea, Reports rapid heart beat, Reports shortness of breath Respiratory: Reports cough, Reports dyspnea Gastrointestinal: Denies abdominal pain, Denies diarrhea, Denies nausea, Denies vomiting Genitourinary: Reports as per HPI Musculoskeletal: Denies myalgias Musculoskeletal: absent: ankle pain, ankle stiffness, ankle swelling Integumentary: Denies pruritus, Denies rash Neurological: Denies numbness, Denies weakness Psychiatric: Reports as per HPI Endocrine: Reports as per HPI Hematologic/Lymphatic: Reports as per HPI Allergic/Immunologic: Reports as per HPI 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%, history cervical and lumbar spondylosis, carpal tunnel disease, paroxysmal atrial fibrillation, previous hospitalization for alcohol intoxication and altered mentation and previous history of fall with pulmonary contusion and traumatic right-sided fractures, history of delirium tremens, chronic atrial fibrillation, hypertension, hyperlipidemia, previous bouts of pneumonia, previous hospital physician for acute alcohol intoxication, kidney stones, cataracts, degenerative arthritis History of Any Multi-Drug Resistant Organisms: None Reported Past Surgical History: Back Surgery, Hernia Repair Additional Past Surgical History / Comment(s): right shoulder surgery, bilateral cataract surgery, umbilical hernia surgery, kidney stones removal, hammer toe surgery X3 with subsequent amputation of the second toe on right foot , pain injections through neurology, colonoscopy Past Anesthesia/Blood Transfusion Reactions: No Reported Reaction Past Psychological History: No Psychological Hx Reported Additional Psychological History / Comment(s): Lives with friend, Bekah Arriaga. she lives in the upstairs of his home. Smoking Status: Current every day smoker Past Alcohol Use History: Daily Additional Past Alcohol Use History / Comment(s): Smokes 1 PPD, USUALLY DRINKS "at least" A FIFTH OF VODKA BETWEEN 9PM-MIDNIGHT DAILY Past Drug Use History: None Reported - Past Family History Father Family Medical History: Diabetes Mellitus Mother History Unknown: Yes Additional Family Medical History / Comment(s): 2001 Medications and Allergies Home Medications Medication Instructions Recorded Confirmed Type Albuterol Sulfate [Proair Hfa] 2 puff INHALATION RT-Q6H PRN 09/14/16 10/14/17 History Rivaroxaban [Xarelto] 20 mg PO DAILY 03/28/17 10/14/17 History HYDROcodone/APAP 10-325MG [[place] 1 tab PO Q6H PRN 04/13/17 10/14/17 History 10-325] Ipratropium [place] [Atrovent Hfa] 2 puff INHALATION RT-QID PRN 10/14/17 History Ipratropium-Albuterol Nebulize 3 ml INHALATION RT-TID PRN 10/14/17 10/14/17 History [Duoneb 0.5 mg-3 mg/3 ml Soln] Allergies Allergy/AdvReac Type Severity Reaction Status Date / Time cephalexin monohydrate Allergy Rash/Hives Verified 10/13/17 19:58 [From Keflex] Physical Exam Vitals: Vital Signs Temp Pulse Pulse Resp BP Pulse Ox 10/15/17 15:22 112 H 10/15/17 15:09 108 H 10/15/17 11:57 116 H 10/15/17 11:38 116 H 10/15/17 11:11 110 H 20 10/15/17 11:10 97.5 F L 110 H 20 100/69 98 10/15/17 07:59 97 F L 141 H 22 98/56 97 10/15/17 07:42 120 H 10/15/17 07:27 116 H 10/15/17 07:17 20 10/15/17 04:00 97.1 F L 66 20 103/73 94 L 10/15/17 03:24 97 10/15/17 03:13 110 H 10/15/17 00:32 118 H 10/15/17 00:21 125 H 10/15/17 00:00 97.2 F L 124 H 22 98/58 96 10/14/17 20:20 99 18 10/14/17 20:11 94 18 10/14/17 20:00 96.3 F L 124 H 22 104/76 98 10/14/17 18:57 90 18 10/14/17 18:46 92 20 10/14/17 16:41 94 20 10/14/17 16:32 99 20 Intake and Output 10/15/17 10/15/17 10/15/17 06:59 14:59 22:59 Intake Total 10 Output Total 100 Balance -90 Intake: IV 10 0.9 10 Output: Urine 100 Other: Voiding Method Urinal Weight 54.5 kg Thin frail elderly male patient, no signs of any acute respiratory distress. No signs of any tremors or confusion or agitation at this point in time. He is following commands and answering questions appropriately. There was no scleral icterus or corneal arcus. Mucous membranes were moist.Neck was supple and without jugular venous distension, thyromegaly, or carotid bruits. Carotids were easily palpable bilaterally. There was no adenopathy. Lung sounds are diminished in the lung bases especially in the right lung base and there is diffuse expiratory wheezes throughout the lung his bilaterally along with prolongation of the expiratory phase of breathing Cardiac exam revealed the PMI to be normally situated and sized. The rhythm was irregular and no extrasystoles were noted during several minutes of auscultation. The first and second heart sounds were normal and physiologic splitting of the second heart sound was noted. There were no murmurs, rubs, clicks, or gallops.Abdominal exam revealed normal bowel sounds. The abdomen was soft, non-tender, and without masses, organomegaly, or appreciable enlargement of the abdominal aorta. Extremities show diffuse muscle atrophy. As a cyanosis or clubbing. Pulses are equal and symmetrical bilaterally in 4 extremities. Neurologically, the patient is awake and alert and following commands and answering questions appropriately. Examination of the skin revealed no evidence of significant rashes, suspicious appearing nevi or other concerning lesions. Results - Laboratory Findings CBC and BMP: 10/15/17 05:37 10/15/17 05:37 PT/INR, D-dimer PT 15.2 sec (9.0-12.0) H 10/13/17 18:08 INR 1.7 (<1.2) H 10/13/17 18:08 Abnormal lab findings: Abnormal Labs 10/13/17 10/13/17 10/13/17 18:08 18:08 18:08 RBC 3.26 L Hgb 8.6 L Hct 29.5 L MCHC 29.2 L RDW 18.3 H Lymphocytes # PT INR APTT VBG pCO2 VBG HCO3 Sodium Potassium Chloride BUN 23 H Creatinine Glucose 120 H POC Glucose (mg/dL) Calcium Total Bilirubin 1.4 H Troponin I 0.035 H* 10/13/17 10/13/17 10/13/17 18:08 18:14 18:30 RBC Hgb Hct MCHC RDW Lymphocytes # PT 15.2 H INR 1.7 H APTT 31.4 H VBG pCO2 56 H VBG HCO3 29 H Sodium Potassium Chloride BUN Creatinine Glucose POC Glucose (mg/dL) 132 H Calcium Total Bilirubin Troponin I 10/13/17 10/14/17 10/14/17 23:43 05:52 05:52 RBC 2.96 L Hgb 8.0 L Hct 27.6 L MCHC 28.8 L RDW 18.4 H Lymphocytes # 0.4 L PT INR APTT VBG pCO2 VBG HCO3 Sodium Potassium Chloride BUN Creatinine Glucose POC Glucose (mg/dL) Calcium Total Bilirubin Troponin I 0.047 H* 0.037 H* 10/14/17 10/14/17 10/14/17 05:52 05:59 11:46 RBC Hgb Hct MCHC RDW Lymphocytes # PT INR APTT VBG pCO2 VBG HCO3 Sodium 136 L Potassium 5.4 H Chloride BUN 31 H Creatinine Glucose 173 H POC Glucose (mg/dL) 188 H 172 H Calcium Total Bilirubin 1.9 H Troponin I 10/14/17 10/14/17 10/14/17 13:14 16:41 21:26 RBC Hgb Hct MCHC RDW Lymphocytes # PT INR APTT VBG pCO2 VBG HCO3 Sodium 135 L Potassium 5.6 H Chloride 95 L BUN 38 H Creatinine Glucose 158 H POC Glucose (mg/dL) 186 H 206 H Calcium 8.3 L Total Bilirubin Troponin I 10/15/17 10/15/17 10/15/17 05:37 05:37 06:12 RBC 2.77 L Hgb 7.4 L Hct 25.2 L MCHC 29.2 L RDW 18.5 H Lymphocytes # PT INR APTT VBG pCO2 VBG HCO3 Sodium 133 L Potassium Chloride 96 L BUN 56 H Creatinine 1.70 H Glucose 150 H POC Glucose (mg/dL) 174 H Calcium 8.0 L Total Bilirubin Troponin I 10/15/17 11:47 RBC Hgb Hct MCHC RDW Lymphocytes # PT INR APTT VBG pCO2 VBG HCO3 Sodium Potassium Chloride BUN Creatinine Glucose POC Glucose (mg/dL) 181 H Calcium Total Bilirubin Troponin I - Diagnostic Findings Chest x-ray: image reviewed Assessment and Plan Plan: Assessment 1 shortness of breath, multifactorial, essentially due to pulmonary cardiac conditions. Currently the patient is an acute COPD exacerbation and he did have a component of CHF at the time of admission which improved. 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 Rule out diuretic effect. Rule out cardiorenal factors 5 previous history of traumatic right-sided hemothorax requiring chest tube insertion and subsequent removal 6 previous history of chest wall contusion/pulmonary contusion related to a fall 7 alcoholism 8 his hospitalization for acute alcohol intoxication 9 chronic atrial fibrillation, rate is controlled for now 10 hypertension 11 smoker 12 previous history of CVA involving the left temporal lobe 13 hyperlipidemia 14 cervical/lumbar spondylosis 15 chronic normocytic anemia Plan Encourage oral hydration. Stop diuretics. Monitor renal function. Continue bronchodilators with DuoNeb nebulized treatments around the clock. Continue Pulmicort Respules. Continue doxycycline. Prednisone burst taper. Smoking cessation counseling was done. Watch for any signs of delirium tremens. Continue beta blockers. Continue Xarelto and stop only there is any further worsening of the renal function. Cardiology is on the case. Echocardiac Dimas was noted. We'll continue to follow. Long-term prognosis poor baseline above-mentioned comorbidities.
[2017-10-15 17:07] LABS: Glucose,Whole Blood 232 mg/dL (75-99)
[2017-10-15] MEDS: LORazepam 2 MG/ML INJ IV PRN ×2 (17:34→21:43)
[2017-10-15] MEDS ORDERED: METOPROLOL TARTRATE 5 MG/5 ML VIAL IVP STA (17:41)
[2017-10-15] MEDS ORDERED: METOPROLOL TARTRATE 5 MG/5 ML VIAL IVP ONE ×2 (17:43→17:48)
[2017-10-15 21:10] LABS: Glucose,Whole Blood 227 mg/dL (75-99)
[2017-10-15] MEDS: PRAVASTATIN SODIUM 40 MG TAB PO SCH (21:40)
[2017-10-15] MEDS: TAMSULOSIN 0.4 MG CAP.ER.24H PO SCH (21:40)
[2017-10-15] MEDS: METOPROLOL TARTRATE 50 MG TAB PO SCH (21:40)
[2017-10-16] MEDS: IPRATROPIUM-ALBUTEROL 3 ML NEB INHALATION SCH ×7 (00:09→23:13)
[2017-10-16 06:10] LABS: Anisocytosis Slight; HCT 25.6 % (39.0-53.0); HGB 7.7 gm/dL (13.0-17.5); Hypochromasia Marked; MCH 27.1 pg (25.0-35.0); MCV 90.2 fL (80.0-100.0); Mean Platelet Volume 8.2; Platelet Count 235 k/uL (150-450); RBC 2.84 m/uL (4.30-5.90); RDW 18.4 % (11.5-15.5); WBC 7.7 k/uL (3.8-10.6)
[2017-10-16 06:23] LABS: Magnesium 1.9 mg/dL (1.6-2.3); Potassium 5.2 mmol/L (3.5-5.1)
[2017-10-16 06:28] LABS: Glucose,Whole Blood 195 mg/dL (75-99)
[2017-10-16] MEDS: FORMOTEROL FUMARATE 20 MCG/2 ML NEBU INHALATION SCH ×2 (07:03→20:26)
[2017-10-16] MEDS: BUDESONIDE 1 MG/2 ML NEBU INHALATION SCH ×2 (07:03→20:26)
[2017-10-16] MEDS ORDERED: SODIUM CHLORIDE 0.9% 500 ML IV ONE ×2 (09:19→09:24)
[2017-10-16] MEDS: BENZONATATE 100 MG CAP PO SCH ×3 (09:54→21:52)
[2017-10-16] MEDS: DOXYCYCLINE 50 MG CAP PO SCH ×2 (09:54→21:53)
[2017-10-16] MEDS: NICOTINE 21MG/24HR PATCH TRANSDERM SCH (09:54)
[2017-10-16] MEDS: FAMOTIDINE 20 MG TAB PO SCH (09:55)
[2017-10-16] MEDS: ASPIRIN 81 MG PO SCH (09:56)
[2017-10-16] MEDS: RIVAROXABAN 20 MG TAB PO SCH (09:56)
--- NOTE | 2017-10-16 10:01 | XR ---
EXAMINATION TYPE: XR chest 1V portable DATE OF EXAM: 10/16/2017 COMPARISON: NONE INDICATION: Short of breath COPD TECHNIQUE: Single frontal view of the chest is obtained. FINDINGS: The heart size is mildly prominent. The pulmonary vasculature is normal. The lungs are clear. Minimal blunting of the right costophrenic angle may be present. Right shoulder prosthesis is present. IMPRESSION: 1. Very minimal right pleural effusion is not excluded. An acute process is not otherwise identified.
--- NOTE | 2017-10-16 10:55 | P.PN ---
<Yogesh Cochranabbi Todd - Last Filed: 10/16/17 10:46> Subjective Progress Note Date: 10/16/17 Principal diagnosis: Dyspnea, multifactorial, related to an acute COPD exacerbation and a component of CHF. 72-year-old male patient, known history of advanced COPD with chronic hypoxic respiratory failure in addition to history of chronic alcoholism, history of fall with pulmonary contusion, traumatic rib fracture for which the patient was hospitalized back in 2017, history of chronic atrial fibrillation, CHF, hypertension, CVA involving the temporal lobe, hyperlipidemia, chronic anemia and cervical and lumbar stenosis. The patient continues to drink alcohol excessively around [facility] on a daily basis. The patient presented to the hospital because of worsening shortness of breath a few days duration. He was using his DuoNeb nebulized treatments without any improvement. He was also using the Combivent. The patient is oxygen dependent and utilize oxygen at 3 L at all times. His sputum production was essentially whitish and there was no hemoptysis or pleurisy. In the hospital, the patient was further found to be nature fibrillation with rapid ventricular response. The patient was thought to be CHF knowing that his proBNP level was quite elevated at 12,200. Troponins were also mildly elevated at 0.04 and 0.03 respectively. The patient was started on diuretics knowing that the chest x-ray showed cardiomegaly and echocardiac Dimas showed improvement in the left atrial ejection fraction with an EF of around 20%. The patient diuresed adequately and the patient became prerenal and the creatinine is up to 1.7. Currently is diuretics is on hold. Meanwhile COPD exacerbations being still treated with a combination of bronchodilators and steroids. The patient is currently on Pulmicort Respules, DuoNeb neb last treatment [id number], prednisone burst taper starting with 40 mg and the patient is also on doxycycline as an empiric antibiotic coverage. No signs of any delirium tremens. His resting comfortably in bed. He remains in atrial fibrillation. Is on Xarelto for anticoagulation. He is still smoking. 10/16/2017 patient seen in follow-up on selective care unit. He was noted to be more lethargic this morning, and he was hypotensive with SBP in the 80s, and DBP in the 50s. Remains afebrile, remains in A. fib, on his heart rate is better controlled, ranging from 80s to 110s BPM. Today's lab work was reviewed , and the patient's renal function is worsening, B1 is up to 80/56, and creatinine is up to 2.24 from 1.7 on yesterday's labs. Serum sodium is 135 potassium is 5.2, WBC of 7.7, and hemoglobin of 7.7. His diuretics were placed on hold in view of worsening renal function and hypotension. Patient is receiving an IV fluid bolus of 500 mL of 0.9 normal saline, and we will give the patient additional 500 mL of fluids. Encourage oral fluid intake. At the time of her evaluation patient is awake alert, lung sounds are positive for diffuse wheezing, and rhonchi. Patient productive cough with production of yellow sputum. Patient was initially placed on prednisone, we will stop the patient increase it to Solu-Medrol 60 mg every 6 hours. Continues on empiric antibiotics doxycycline. No fever no chills. His chest x-ray was reviewed with Dr. Perez and shows left pleural effusion no other acute process identified. Objective - Vital Signs Vital signs: Vital Signs Temp 96.6 F L 10/16/17 07:45 Pulse 114 H 10/16/17 07:45 Resp 18 10/16/17 07:45 BP 84/56 10/16/17 07:45 Pulse Ox 100 10/16/17 07:45 Intake & Output 10/15/17 10/16/17 10/16/17 18:59 06:59 18:59 Intake Total 240 Output Total 150 Balance 240 -150 Weight 74.1 kg Intake: Oral 240 Output: Urine 150 Other: Voiding Method Urinal # Voids 1 - Exam Thin frail elderly male patient, mildly short of breath at rest, patient has been wearing a BiPAP mask intermittently. No signs of any tremors or confusion or agitation at this point in time. He is following commands and answering questions appropriately. There was no scleral icterus or corneal arcus. Mucous membranes were moist.Neck was supple and without jugular venous distension, thyromegaly, or carotid bruits. Carotids were easily palpable bilaterally. There was no adenopathy. Lung sounds are diminished in the lung bases especially in the right lung base and there is diffuse expiratory wheezes throughout the lung his bilaterally along with prolongation of the expiratory phase of breathing Cardiac exam revealed the PMI to be normally situated and sized. The rhythm was irregular and no extrasystoles were noted during several minutes of auscultation. The first and second heart sounds were normal and physiologic splitting of the second heart sound was noted. There were no murmurs, rubs, clicks, or gallops.Abdominal exam revealed normal bowel sounds. The abdomen was soft, non-tender, and without masses, organomegaly, or appreciable enlargement of the abdominal aorta. Extremities show diffuse muscle atrophy. As a cyanosis or clubbing. Pulses are equal and symmetrical bilaterally in 4 extremities. Neurologically, the patient is awake and alert and following commands and answering questions appropriately. Examination of the skin revealed no evidence of significant rashes, suspicious appearing nevi or other concerning lesions. - Labs CBC & Chem 7: 10/16/17 05:10/16/17 05:20 Labs: Abnormal Lab Results - Last 24 Hours (Table) 10/15/17 10/15/17 10/15/17 Range/Units 11:47 16:31 21:09 RBC (4.30-5.90) m/uL Hgb (13.0-17.5) gm/dL Hct (39.0-53.0) % MCHC (31.0-37.0) g/dL RDW (11.5-15.5) % Sodium (137-145) mmol/L Potassium (3.5-5.1) mmol/L Chloride (98-107) mmol/L BUN (9-20) mg/dL Creatinine (0.66-1.25) mg/dL Glucose (74-99) mg/dL POC Glucose (mg/dL) 181 H 232 H 227 H (75-99) mg/dL Calcium (8.4-10.2) mg/dL 10/16/17 10/16/17 10/16/17 Range/Units 05:20 05:20 06:24 RBC 2.84 L (4.30-5.90) m/uL Hgb 7.7 L (13.0-17.5) gm/dL Hct 25.6 L (39.0-53.0) % MCHC 30.0 L (31.0-37.0) g/dL RDW 18.4 H (11.5-15.5) % Sodium 135 L (137-145) mmol/L Potassium 5.2 H (3.5-5.1) mmol/L Chloride 94 L (98-107) mmol/L BUN 80 H* (9-20) mg/dL Creatinine 2.24 H (0.66-1.25) mg/dL Glucose 134 H (74-99) mg/dL POC Glucose (mg/dL) 195 H (75-99) mg/dL Calcium 8.0 L (8.4-10.2) mg/dL Assessment and Plan Plan: Assessment: 1 shortness of breath, multifactorial, essentially due to pulmonary cardiac conditions. Currently the patient is an acute COPD exacerbation and he did have a component of CHF at the time of admission which improved. 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 Rule out diuretic effect. Rule out cardiorenal factors. 5 previous history of traumatic right-sided hemothorax requiring chest tube insertion and subsequent removal 6 previous history of chest wall contusion/pulmonary contusion related to a fall 7 alcoholism 8 his hospitalization for acute alcohol intoxication 9 chronic atrial fibrillation, rate is controlled for now 10 hypertension 11 smoker 12 previous history of CVA involving the left temporal lobe 13 hyperlipidemia 14 cervical/lumbar spondylosis 15 chronic normocytic anemia Plan Continue holding diuretics, patient developed hypotension, and worsening renal failure. Patient is receiving 500 mL IV bolus, we will give additional 500 mL of 0.9 normal saline, and gently rehydrate the patient. Encourage oral fluid intake. We'll stop the prednisone, and start Solu-Medrol 60 mg every 6 hours. Continue doxycycline, continue nebulized bronchodilators, Pulmicort and Perforomist. H will be placed on BiPAP as needed during the day, and at bedtime. Continue monitoring labs, fever pattern, renal profile, electrolytes. Continue to follow I performed a history & physical examination of the patient and discussed their management with my nurse practitioner, Carolina Cochran. I reviewed the nurse practitioner's note and agree with the documented findings and plan of care. Lung sounds are positive for diffuse wheezes, scattered rhonchi. The findings and the impression was discussed with the patient. I attest to the documentation by the nurse practitioner. Time with Patient: Less than 30 <Howard Perez - Last Filed: 10/16/17 18:31> Objective - Vital Signs Vital signs: Vital Signs Temp 96.7 F L 10/16/17 15:30 Pulse 72 10/16/17 15:53 Resp 18 10/16/17 15:30 BP 78/45 10/16/17 15:30 Pulse Ox 99 10/16/17 15:30 Intake & Output 10/15/17 10/16/17 10/16/17 18:59 06:59 18:59 Intake Total 240 1000 Output Total 150 Balance 240 -150 1000 Weight 74.1 kg 74.1 kg Intake: Intake, IV Titration 1000 Amount Sodium Chloride 0.9% 500 500 ml @ 999 mls/hr IV .Q31M ONE Rx#:[id number] Sodium Chloride 0.9% 500 500 ml @ 999 mls/hr IV .Q31M ONE Rx#:[id number] Oral 240 Output: Urine 150 Other: Voiding Method Urinal # Voids 1 - Labs CBC & Chem 7: 10/16/17 17:20 10/16/17 17:20 Labs: Abnormal Lab Results - Last 24 Hours (Table) 10/15/17 10/16/17 10/16/17 Range/Units 21:09 05:20 05:20 RBC 2.84 L (4.30-5.90) m/uL Hgb 7.7 L (13.0-17.5) gm/dL Hct 25.6 L (39.0-53.0) % MCHC 30.0 L (31.0-37.0) g/dL RDW 18.4 H (11.5-15.5) % Neutrophils # (1.3-7.7) k/uL Lymphocytes # (1.0-4.8) k/uL PT (9.0-12.0) sec INR (<1.2) APTT (22.0-30.0) sec Sodium 135 L (137-145) mmol/L Potassium 5.2 H (3.5-5.1) mmol/L Chloride 94 L (98-107) mmol/L Carbon Dioxide (22-30) mmol/L BUN 80 H* (9-20) mg/dL Creatinine 2.24 H (0.66-1.25) mg/dL Glucose 134 H (74-99) mg/dL POC Glucose (mg/dL) 227 H (75-99) mg/dL Plasma Lactic Acid Elvis (0.7-2.0) mmol/L Calcium 8.0 L (8.4-10.2) mg/dL Total Bilirubin (0.2-1.3) mg/dL Total Creatine Kinase (55-170) U/L Total Protein (6.3-8.2) g/dL 10/16/17 10/16/17 10/16/17 Range/Units 06:24 11:51 15:36 RBC (4.30-5.90) m/uL Hgb (13.0-17.5) gm/dL Hct (39.0-53.0) % MCHC (31.0-37.0) g/dL RDW (11.5-15.5) % Neutrophils # (1.3-7.7) k/uL Lymphocytes # (1.0-4.8) k/uL PT (9.0-12.0) sec INR (<1.2) APTT (22.0-30.0) sec Sodium (137-145) mmol/L Potassium (3.5-5.1) mmol/L Chloride (98-107) mmol/L Carbon Dioxide (22-30) mmol/L BUN (9-20) mg/dL Creatinine (0.66-1.25) mg/dL Glucose (74-99) mg/dL POC Glucose (mg/dL) 195 H 174 H 169 H (75-99) mg/dL Plasma Lactic Acid Elvis (0.7-2.0) mmol/L Calcium (8.4-10.2) mg/dL Total Bilirubin (0.2-1.3) mg/dL Total Creatine Kinase (55-170) U/L Total Protein (6.3-8.2) g/dL 10/16/17 10/16/17 10/16/17 Range/Units 16:14 17:10 17:20 RBC (4.30-5.90) m/uL Hgb (13.0-17.5) gm/dL Hct (39.0-53.0) % MCHC (31.0-37.0) g/dL RDW (11.5-15.5) % Neutrophils # (1.3-7.7) k/uL Lymphocytes # (1.0-4.8) k/uL PT (9.0-12.0) sec INR (<1.2) APTT (22.0-30.0) sec Sodium (137-145) mmol/L Potassium (3.5-5.1) mmol/L Chloride (98-107) mmol/L Carbon Dioxide (22-30) mmol/L BUN (9-20) mg/dL Creatinine (0.66-1.25) mg/dL Glucose (74-99) mg/dL POC Glucose (mg/dL) 161 H 157 H (75-99) mg/dL Plasma Lactic Acid Elvis (0.7-2.0) mmol/L Calcium (8.4-10.2) mg/dL Total Bilirubin (0.2-1.3) mg/dL Total Creatine Kinase 41 L (55-170) U/L Total Protein (6.3-8.2) g/dL 10/16/17 10/16/17 10/16/17 Range/Units 17:20 17:20 17:20 RBC 3.13 L (4.30-5.90) m/uL Hgb 8.5 L (13.0-17.5) gm/dL Hct 29.5 L (39.0-53.0) % MCHC 28.7 L (31.0-37.0) g/dL RDW 18.5 H (11.5-15.5) % Neutrophils # 8.5 H (1.3-7.7) k/uL Lymphocytes # 0.6 L (1.0-4.8) k/uL PT 28.1 H (9.0-12.0) sec INR 3.1 H (<1.2) APTT 31.8 H (22.0-30.0) sec Sodium 132 L (137-145) mmol/L Potassium 5.8 H (3.5-5.1) mmol/L Chloride 96 L (98-107) mmol/L Carbon Dioxide 19 L (22-30) mmol/L BUN 89 H* (9-20) mg/dL Creatinine 2.50 H (0.66-1.25) mg/dL Glucose 138 H (74-99) mg/dL POC Glucose (mg/dL) (75-99) mg/dL Plasma Lactic Acid Elvis (0.7-2.0) mmol/L Calcium 7.7 L (8.4-10.2) mg/dL Total Bilirubin 1.5 H (0.2-1.3) mg/dL Total Creatine Kinase (55-170) U/L Total Protein 6.1 L (6.3-8.2) g/dL 10/16/17 Range/Units 17:20 RBC (4.30-5.90) m/uL Hgb (13.0-17.5) gm/dL Hct (39.0-53.0) % MCHC (31.0-37.0) g/dL RDW (11.5-15.5) % Neutrophils # (1.3-7.7) k/uL Lymphocytes # (1.0-4.8) k/uL PT (9.0-12.0) sec INR (<1.2) APTT (22.0-30.0) sec Sodium (137-145) mmol/L Potassium (3.5-5.1) mmol/L Chloride (98-107) mmol/L Carbon Dioxide (22-30) mmol/L BUN (9-20) mg/dL Creatinine (0.66-1.25) mg/dL Glucose (74-99) mg/dL POC Glucose (mg/dL) (75-99) mg/dL Plasma Lactic Acid Elvis 3.3 H* (0.7-2.0) mmol/L Calcium (8.4-10.2) mg/dL Total Bilirubin (0.2-1.3) mg/dL Total Creatine Kinase (55-170) U/L Total Protein (6.3-8.2) g/dL Assessment and Plan Plan: I reevaluated this patient in the afternoon. The patient was still hypotensive despite being given a bolus of normal saline 1 L. Systolic blood pressure was running in the mid 80s and the patient was not producing much of urine output. He was progressively becoming more lethargic and weak. He got transferred to the intensive care unit. I ordered the transfer. Upon arrival he was given another liter of IV fluid and he continued to have a low urine output. I inserted triple-lumen cath in his left subclavian. The chest x-ray showed no evidence of any volume overload. The line was placed and without any complications. CVP is currently at 26. The patient was given a dose of Lasix 60 mg IV push. This was given to him to augment his urine output. I suspect that the patient is going into an acute tubular necrosis and he is oliguric at this stage. The patient also had blood work that showed a component of metabolic acidosis with a bicarb level of 19. His potassium level is up to 5.9 and the lactic acid was at 3.3. In my opinion, the patient is in a combination of CHF and acute kidney injury/ ATN probably related to cardiorenal factors and diuresis. Initially became prerenal and possibly went into an acute tubular necrosis and currently is oliguric. He has not responded to IV fluids. He was given a total of 2 L and he'll be placed on a maintenance of 75 mL an hour. The patient has a Price catheter in place. Lines are all in place. He is on 2 mics of levo fed for hemodynamic support. He is coagulopathic. He'll be given vitamin K 10 mg. Hyperkalemia will be treated. He'll be given an amp of bicarbonate along with the 50 insulin. Prognosis is poor. 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 We'll continue to follow. This evaluation was done on the floor initially and subsequently in the intensive care unit. Critical care evaluation that was done and more than 45 minutes. Time with Patient: Greater than 30
[2017-10-16] MEDS: METOPROLOL TARTRATE 50 MG TAB PO SCH ×3 (11:05→21:34)
--- NOTE | 2017-10-16 11:39 | P.PN ---
Subjective Progress Note Date: 10/16/17 Principal diagnosis: Patient is a 72 yo CM with a history of alcohol abuse, A. fib, COPD on chronic oxygen at 3 L nasal cannula who presented to the ER with complaints of shortness of breath. In the ER he underwent an extensive evaluation. He was found to be hypoxic at 84% of his 3 L nasal cannula. His heart rate was elevated at 148. Initial laboratory analysis showed an elevated BUN of 23. Slightly elevated troponin of 0.47 and an elevated BNP of 12,200. Chest x-ray showed cardiomegaly without overt heart failure. He was started on a Cardizem drip, bronchodilators, and Solu-Medrol. Despite this he still had increased work of breathing and he was subsequently admitted to the selective care unit. By the morning after admission his breathing had improved significantly. Cardiology was consulted and he was transitioned from cardizem gtt to oral verapamil. Over the evening on 10/14 his work of breathing increased and he was started on Bipap. His echo cam back with an EF of less than 20% and severe global hypokanesis. Patient is pretty dyspneic complaining of shortness of breath this morning, was increasingly somnolent nursing had concerns about his status, the patient wearing BiPAP and was borderline hypotensive. Patient arousable on my examination. Has extremely coarse breath sounds with diffuse wheezes. ABG reviewed. Pulmonary also following Objective - Vital Signs Vital signs: Vital Signs Temp 96.6 F L 10/16/17 07:45 Pulse 86 10/16/17 11:08 Resp 18 10/16/17 07:45 BP 84/56 10/16/17 07:45 Pulse Ox 100 10/16/17 07:45 Intake & Output 10/15/17 10/16/17 10/16/17 18:59 06:59 18:59 Intake Total 240 Output Total 150 Balance 240 -150 Weight 74.1 kg Intake: Oral 240 Output: Urine 150 Other: Voiding Method Urinal # Voids 1 - Exam Constitutional: Moderate respiratory distress, conversant, pleasant Eyes: Anicteric sclerae, moist conjunctiva, no lid-lag, PERRLA ENMT: NC/AT,Oropharynx clear, no erythema, exudates Neck:Supple, FROM, no masses, or JVD, No carotid bruits; No thyromegaly Lungs: Diffuse coarse breath sounds and biphasic wheezes, Clear to percussion, on BiPAP Cardiovascular: Heart regular in rate and rhythm, No murmurs, gallops, or rubs no peripheral edema Abdominal: Soft Nontender, nom distended, no guarding, no rebound or rigidity, Normoactive bowel sounds No hepatomegaly, No splenomegaly, No palpable mass No abdominal wall hernia noted Skin: Normal temperature, tone, texture, turgor, No induration No subcutaneous nodules, No rash, lesions, No ulcers Extremities:No digital cyanosis No clubbing, Pedal pulses intact and symmetrical Radial pulses intact and symmetrical Normal gait and station, No calf tenderness Psychiatric: Alert and oriented to person, place and time, Appropriate affect Intact judgement Neuro: Muscles Strength 5/5 in all 4 extremities, Sensation to light touch grossly present throughout, Cranial nerves II-XII grossly intact. No focal sensory deficits - Labs CBC & Chem 7: 10/16/17 17:20 10/16/17 17:20 Labs: Abnormal Lab Results - Last 24 Hours (Table) 10/15/17 10/15/17 10/15/17 Range/Units 11:47 16:31 21:09 RBC (4.30-5.90) m/uL Hgb (13.0-17.5) gm/dL Hct (39.0-53.0) % MCHC (31.0-37.0) g/dL RDW (11.5-15.5) % Sodium (137-145) mmol/L Potassium (3.5-5.1) mmol/L Chloride (98-107) mmol/L BUN (9-20) mg/dL Creatinine (0.66-1.25) mg/dL Glucose (74-99) mg/dL POC Glucose (mg/dL) 181 H 232 H 227 H (75-99) mg/dL Calcium (8.4-10.2) mg/dL 10/16/1718 10/16/17 Range/Units 05:20 05:20 06:24 RBC 2.84 L (4.30-5.90) m/uL Hgb 7.7 L (13.0-17.5) gm/dL Hct 25.6 L (39.0-53.0) % MCHC 30.0 L (31.0-37.0) g/dL RDW 18.4 H (11.5-15.5) % Sodium 135 L (137-145) mmol/L Potassium 5.2 H (3.5-5.1) mmol/L Chloride 94 L (98-107) mmol/L BUN 80 H* (9-20) mg/dL Creatinine 2.24 H (0.66-1.25) mg/dL Glucose 134 H (74-99) mg/dL POC Glucose (mg/dL) 195 H (75-99) mg/dL Calcium 8.0 L (8.4-10.2) mg/dL Assessment and Plan Assessment: Acute exacerbation of COPD with acute on chronic hypoxic respiratory failure - Duoneb 4 times daily, when necessary bronchodilators - symbicort transitioned to performist and pulmicort - IV steorids initiated by pulmonary - Consult Pumonary - Doxycycline - Pulmonary hygiene Hypotension * Hypovolemic due to (overdiuresis BUN and creatinine elevated today )versus cardiogenic shock ( severe cardiomyopathy) * We'll give 500 mL bolus and reevaluate and rebolus if needed, if still hypotensive we'll consider transfusing unit of packed RBCs * We'll hold his antihypertensive medications today Newly discovered systolic cardiomyopathy, decompensated on arrival, EF <20% - D/W cardio stop verapamil and increase metoprolol to 100mg BID - ? need for ischemic eval and timing - no candidate for ACEI at this time due to STANLEY and hyperkalemia yesterday - stric I and O - Daily weights STANLEY with mild hyperkalemia - suspect due to forced diureis - hold lasix, no IVF with low EF and increased work of breathing - Avoid additional nephrotoxic agents -Creatinine trending up to 2.2 from 1.7 today A. fib with RVR with elevated troponin - Troponin likely elevated secondary to demand ischemia -Serial troponins flat - metoprolol - cardio recs appreciated - Continue Xarelto - tele EtOH abuse -[facility] protocol -Thiamine and folic acid Chronic anemia currently at baseline -Patient denied evidence of GI bleeding -Serial CBC as outpatient Hypertension, controlled -Continue home medications Dyslipidemia -Continue statin DVT prophylaxis: Xarelto Discussed with: Patient, nursing, cardiology Anticipated discharge: 2-[address]: Home with home health A total of 35 minutes was spent on the care of this complex patient more than 50 % of the time was spent in counseling and care coordination.
[2017-10-16] MEDS: THIAMINE 100 MG TAB PO SCH ×2 (11:48→20:36)
[2017-10-16] MEDS: methylPREDNISolone SOD SUCCI 125 MG/2 ML VIAL IV SCH ×2 (11:48→20:36)
[2017-10-16] MEDS: FOLIC ACID 1 MG TAB PO SCH (11:48)
[2017-10-16 11:58] LABS: Glucose,Whole Blood 174 mg/dL (75-99)
[2017-10-16] MEDS: HYDROcodone/APAP 5-325MG 1 EACH TAB PO PRN (12:04)
--- NOTE | 2017-10-16 12:14 | P.PN ---
Subjective Progress Note Date: 10/16/17 This is a 72-year-old gentleman with history of chronic alcoholism, anemia, nicotine dependence, paroxysmal atrial fibrillation, congestive heart failure with preserved LV function, COPD with home O2 use, who has had multiple admissions to the hospital for atrial fibrillation in the past. He presents to the hospital on this occasion with symptoms of progressively worsening shortness of breath as well as significant abdominal distention and swelling. His EKG on arrival here showed atrial fibrillation with rapid ventricular response. Chest x-ray showed cardiomegaly with no congestive heart failure. Blood pressure on arrival 108/60, heart rate in the 140s, 98% on 3 L of oxygen. At pressure this morning 105/50, heart rate in the 90s, percent on 2 L of oxygen. White blood cell count on admission 4.5, hemoglobin 8.0, platelet count 198. Sodium 136, potassium 5.4, BUN 31, creatinine 1.0. Magnesium level I.7 on admission. BNP level 12,200, troponins 0.035, 0.047, 0.037. Patient was initiated on IV Cardizem in the emergency room, he continues to be on a drip at 10 mg per hour. He was also given a one-time dose of IV Lasix. Patient is on xarelto 20 mg daily for anticoagulation. At time of my examination this morning, patient is sitting up in bed, he states he can not breathe well at all when he is lying flat, with minimal exertion, just walking to the bathroom he becomes extremely short of breath. 10/15/2017 Patient was seen and examined this morning, IV Cardizem is discontinued yesterday and the patient was initiated on verapamil. Echocardiogram with Doppler study was performed which revealed an ejection fraction of less than 20% , severe global hypokinesia, moderate concentric LVH, severely dilated left atrium, mild to moderate MR, mild to moderate TR with borderline pulmonary hypertension. We will discontinue the verapamil and increase the metoprolol to 100 mg by mouth twice a day. Blood pressure today 100/60 with a heart rate in the 1 teens. White blood cell count 4.6, hemoglobin down to 7.4, platelet count 201. Sodium 133, potassium 5.1, BUN 56, creatinine 1.7. 10/16/2017 Patient was seen and examined this morning, but pressure running in the mid 80s this morning, 100% on 40% BiPAP. Hemoglobin 7.7 today, platelet count 235. Sodium 135, potassium 5.2, BUN 80, creatinine 2.2. BNP 12,500. The time of her blood pressure was up to 110/60, decrease her dose of metoprolol tartrate 50 mg by mouth 3 times a day. We will also add some IV Lasix to his medication regime. Further recommendations Objective - Vital Signs Vital signs: Vital Signs Temp 96.6 F L 10/16/17 07:45 Pulse 86 10/16/17 11:08 Resp 18 10/16/17 07:45 BP 84/56 10/16/17 07:45 Pulse Ox 100 10/16/17 07:45 Intake & Output 10/15/17 10/16/17 10/16/17 18:59 06:59 18:59 Intake Total 240 Output Total 150 Balance 240 -150 Weight 74.1 kg Intake: Oral 240 Output: Urine 150 Other: Voiding Method Urinal # Voids 1 - Exam PHYSICAL EXAMINATION: GENERAL: 72-year-old gentleman in mild respiratory distress at the time of my examination. HEENT: Head is atraumatic, normocephalic. Pupils equal, round. Sclera anicteric. Conjunctiva are clear. Mucous membranes of the mouth are moist. Neck is supple. There is elevated jugular venous pressure.] bruit is heard. HEART EXAMINATION: Heart S1 and S2 irregularly irregular CHEST EXAMINATION: Lungs reveal scattered coarse wheezing throughout with decreased air exchange. ABDOMEN: Firm, distended, hepatomegaly noted . EXTREMITIES: 2+ peripheral pulses with no evidence of peripheral edema and no calf tenderness noted. NEUROLOGIC patient is awake, alert and oriented -3. - Labs CBC & Chem 7: 10/16/17 05:20 10/16/17 05:20 Labs: Abnormal Lab Results - Last 24 Hours (Table) 10/15/17 10/15/17 10/16/17 Range/Units 16:31 21:09 05:20 RBC 2.84 L (4.30-5.90) m/uL Hgb 7.7 L (13.0-17.5) gm/dL Hct 25.6 L (39.0-53.0) % MCHC 30.0 L (31.0-37.0) g/dL RDW 18.4 H (11.5-15.5) % Sodium (137-145) mmol/L Potassium (3.5-5.1) mmol/L Chloride (98-107) mmol/L BUN (9-20) mg/dL Creatinine (0.66-1.25) mg/dL Glucose (74-99) mg/dL POC Glucose (mg/dL) 232 H 227 H (75-99) mg/dL Calcium (8.4-10.2) mg/dL 10/16/17 10/16/17 10/16/17 Range/Units 05:20 06:24 11:51 RBC (4.30-5.90) m/uL Hgb (13.0-17.5) gm/dL Hct (39.0-53.0) % MCHC (31.0-37.0) g/dL RDW (11.5-15.5) % Sodium 135 L (137-145) mmol/L Potassium 5.2 H (3.5-5.1) mmol/L Chloride 94 L (98-107) mmol/L BUN 80 H* (9-20) mg/dL Creatinine 2.24 H (0.66-1.25) mg/dL Glucose 134 H (74-99) mg/dL POC Glucose (mg/dL) 195 H 174 H (75-99) mg/dL Calcium 8.0 L (8.4-10.2) mg/dL Assessment and Plan Plan: Assessment and plan #1 atrial fibrillation with rapid ventricular response, in a patient with known paroxysmal atrial fibrillation. #2 chronic alcoholism #3 nicotine dependence #4 systolic congestive heart failure acute on chronic #5 COPD with home O2 use Plan EchocardiEchocardiogram with Doppler study was, which revealed an ejection fraction of less than 20%. Because of the hypotension earlier this morning we will decrease the dose of metoprolol to 50 mg by mouth 3 times a day. We will also give the patient IV Lasix 40 mg now and twice a day. Check lytes BUN and creatinine intake and output in the morning. DNP note has been reviewed, I agree with a documented findings and plan of care. Patient was seen and examined.
[2017-10-16 14:07] VITALS: BMI 22.1
[2017-10-16 15:39] LABS: Glucose,Whole Blood 169 mg/dL (75-99)
[2017-10-16 16:16] LABS: Glucose,Whole Blood 161 mg/dL (75-99)
[2017-10-16] MEDS ORDERED: NOREPINEPHRIN 4 MG-0.9% NS PMX 4 MG/250 ML ML IV ONE (17:05)
[2017-10-16 17:11] LABS: Glucose,Whole Blood 157 mg/dL (75-99)
[2017-10-16] MEDS ORDERED: NOREPINEPHRINE 4 MG in SODIUM CHLORIDE 0.9% 250 ML IV SCH (17:30)
[2017-10-16 17:49] LABS: INR 3.1 (<1.2); Partial Thromboplastin Time 31.8 sec (22.0-30.0); Prothrombin Time 28.1 sec (9.0-12.0)
[2017-10-16 17:51] LABS: Albumin 3.5 g/dL (3.5-5.0); Calcium 7.7 mg/dL (8.4-10.2); Potassium 5.8 mmol/L (3.5-5.1); Total Bilirubin 1.5 mg/dL (0.2-1.3); Total Protein 6.1 g/dL (6.3-8.2)
[2017-10-16 18:03] LABS: Anisocytosis Slight; Basophils % (A) 0 %; Eosinophils % (A) 0 %; HCT 29.5 % (39.0-53.0); HGB 8.5 gm/dL (13.0-17.5); Hypochromasia Marked; Lymphocytes # (A) 0.6 k/uL (1.0-4.8); Lymphocytes % (A) 6 %; MCH 27.1 pg (25.0-35.0); MCHC 28.7 g/dL (31.0-37.0); MCV 94.3 fL (80.0-100.0); Macrocytosis Slight; Mean Platelet Volume 7.9; Monocytes # (A) 0.3 k/uL (0-1.0); Monocytes % (A) 3 %; Neutrophils # (A) 8.5 k/uL (1.3-7.7); Neutrophils % (A) 90 %; Platelet Count 253 k/uL (150-450); RBC 3.13 m/uL (4.30-5.90); RDW 18.5 % (11.5-15.5); WBC 9.5 k/uL (3.8-10.6)
[2017-10-16 18:20] LABS: Creatine Kinase MB 1.5 ng/mL (0.0-2.4); Troponin I 0.03 ng/mL (0.000-0.034)
--- NOTE | 2017-10-16 18:21 | XR ---
EXAMINATION TYPE: XR chest 1V confirm line [facility] DATE OF EXAM: 10/16/2017 COMPARISON: Today at 10:00 AM HISTORY: Central line placement TECHNIQUE: Single frontal view of the chest is obtained. FINDINGS: There is a left-sided central venous catheter with the tip in the superior vena cava. Ther e is no sign of pneumothorax. There is no heart failure. There is some coarsening of the lung marking s in the right lower lobe. There is slight blunting of right costophrenic angle. There are chest lead s. There is right shoulder prosthesis. IMPRESSION: Catheter appears in good position. There is possible developing mild infiltrate in the r ight lower lobe compared to the exam this morning.
[2017-10-16] MEDS ORDERED: FUROSEMIDE 10 MG/ML 10 ML VIAL IV STA (18:23)
[2017-10-16] MEDS ORDERED: PHYTONADIONE 10 MG in SODIUM CHLORIDE 0.9% 50 ML IVPB STA (18:31)
[2017-10-16] MEDS ORDERED: DEXTROSE 50%-WATER 50 ML SYRINGE IVP STA (18:32)
[2017-10-16] MEDS ORDERED: SODIUM BICARB 8.4% 50 ML SYR (1 MEQ/ML) IV ONE (18:45)
[2017-10-16] MEDS ORDERED: INSULIN REGULAR 100 UNIT/ML VIAL IV ONE (18:45)
--- NOTE | 2017-10-16 19:34 | OP ---
OPERATIVE REPORT TRIPLE LUMEN CATHETER PLACEMENT: PREOPERATIVE DIAGNOSIS: Congestive heart failure/hypotension/shock. POSTOPERATIVE DIAGNOSIS: Congestive heart failure/hypotension/shock. Indication Hemodynamic monitoring/Intravenous access. A time-out was completed verifying correct patient, procedure, site, positioning, and implant(s) or special equipment if applicable. The patient was placed in a dependent position appropriate for triple lumen catheter placement based on the vein to be cannulated. The patient's left shoulder was prepped and draped in sterile fashion. 1% Lidocaine was used to anesthetize the surrounding skin area. A triple lumen 9F Cordis catheter was introduced into the left subclavian vein using Seldinger technique. The catheter was threaded smoothly over the guide wire and appropriate blood return was obtained. Each lumen of the catheter was evacuated of air and flushed with sterile saline. The catheter was then sutured in place to the skin and a sterile dressing applied. Perfusion to the extremity distal to the point of catheter insertion was checked and found to be adequate. No bedside complications or bleeding. Chest x-ray shows no pneumothorax. MMODL / IJN: [id number] /
[2017-10-16] MEDS: SODIUM CHLORIDE 0.9% 1,000 ML IV SCH (20:37)
[2017-10-16] MEDS ORDERED: METOPROLOL TARTRATE 50 MG TAB PO SCH (21:00)
[2017-10-16 21:28] LABS: Appearance,Urine Clear (Clear); Bacteria,Urine Occasional /hpf; Bilirubin,Urine Negative (Negative); Blood,Urine Moderate (Negative); Budding Yeast,Urine Occasional /hpf; Color,Urine Light Yellow; Glucose,Urine (UA) Negative (Negative); Hyaline Casts,Urine 8 /lpf (0-2); Ketones,Urine Negative (Negative); Leukocyte Esterase,Urine Moderate (Negative); Mucus,Urine Rare /hpf; Nitrite,Urine Negative (Negative); Protein,Urine Trace (Negative); RBC,Urine 28 /hpf (0-5); Specific Gravity,Urine 1.008 (1.001-1.035); Squamous Epithelial Cell,Urine <1 /hpf (0-4); Urobilinogen,Urine <2.0 mg/dL (<2.0); WBC,Urine 13 /hpf (0-5)
[2017-10-16] MEDS: TAMSULOSIN 0.4 MG CAP.ER.24H PO SCH (21:53)
[2017-10-16] MEDS: PRAVASTATIN SODIUM 40 MG TAB PO SCH (21:53)
[2017-10-16] MEDS ORDERED: FUROSEMIDE 10 MG/ML 10 ML VIAL IV ONE (22:00)
[2017-10-17 00:34] LABS: Creatine Kinase MB 1.4 ng/mL (0.0-2.4); Troponin I 0.028 ng/mL (0.000-0.034)
[2017-10-17] MEDS: methylPREDNISolone SOD SUCCI 125 MG/2 ML VIAL IV SCH ×4 (02:40→18:22)
[2017-10-17] MEDS: IPRATROPIUM-ALBUTEROL 3 ML NEB INHALATION SCH ×6 (03:10→23:45)
[2017-10-17 05:05] LABS: Anisocytosis Slight; Basophils % (A) 0 %; Eosinophils % (A) 0 %; HCT 25.4 % (39.0-53.0); HGB 7.5 gm/dL (13.0-17.5); Hypochromasia Marked; Lymphocytes # (A) 0.2 k/uL (1.0-4.8); Lymphocytes % (A) 4 %; MCH 26.7 pg (25.0-35.0); MCHC 29.8 g/dL (31.0-37.0); MCV 89.7 fL (80.0-100.0); Mean Platelet Volume 8.1; Monocytes # (A) 0.3 k/uL (0-1.0); Monocytes % (A) 4 %; Neutrophils # (A) 5.7 k/uL (1.3-7.7); Neutrophils % (A) 91 %; Platelet Count 210 k/uL (150-450); RBC 2.83 m/uL (4.30-5.90); RDW 18.5 % (11.5-15.5); WBC 6.3 k/uL (3.8-10.6)
[2017-10-17 05:27] LABS: Calcium 7.7 mg/dL (8.4-10.2); Magnesium 1.8 mg/dL (1.6-2.3); Phosphorus 5.3 mg/dL (2.5-4.5); Potassium 4.2 mmol/L (3.5-5.1)
[2017-10-17 05:39] LABS: Creatine Kinase MB 1.5 ng/mL (0.0-2.4); Troponin I 0.029 ng/mL (0.000-0.034)
[2017-10-17] MEDS ORDERED: Magnesium Replacement Protocol 1 EACH MISC MISCELLANE PRN (05:44)
[2017-10-17] MEDS: MAGNESIUM SULFATE-D5W PMX 1 GM in DEXTROSE/WATER 1 100ML.BAG IVPB SCH ×2 (05:58→09:02)
[2017-10-17] MEDS: SODIUM CHLORIDE 0.9% 1,000 ML IV SCH ×2 (05:59→19:00)
[2017-10-17] MEDS: FORMOTEROL FUMARATE 20 MCG/2 ML NEBU INHALATION SCH ×2 (07:26→19:22)
[2017-10-17] MEDS: BUDESONIDE 1 MG/2 ML NEBU INHALATION SCH ×2 (07:26→19:22)
--- NOTE | 2017-10-17 07:36 | XR ---
EXAMINATION TYPE: XR chest 1V DATE OF EXAM: 10/17/2017 CLINICAL HISTORY: Difficulty breathing progress study. TECHNIQUE: Single AP portable upright view of the chest is obtained. COMPARISON: Chest x-ray from one day earlier and older studies. FINDINGS: There is stable left subclavian central venous catheter. Metallic hardware right shoulder surgery is partially imaged. Cardiac silhouette size is stable and mildly enlarged with atherosclerot ic change in aortic knob. There is persistent right basilar opacity. Left lung remains clear. IMPRESSION: Overall stable findings, persistent right basilar atelectasis and/or infiltrate and sma ll right pleural effusion.
--- NOTE | 2017-10-17 08:35 | CONS ---
CONSULTATION REASON FOR CONSULT: Renal failure. HISTORY OF PRESENT ILLNESS: The patient is a 72-year-old male with history of severe cardiomyopathy and ejection fraction of less than 20%. He was initially admitted to the hospital on 10/13/2017 with shortness of breath and CHF exacerbation along with A. Fib with RVR. The patient was diuresed and yesterday he was noticed to be lethargic, systolic blood pressure was low in the 80s and patient was transferred to the ICU. He remained in A. Fib, but his rate was controlled. His renal function worsened with serum creatinine going up to 2.5 mg/dL. Initial creatinine was 0.9 on admission. After admission to the ICU, patient has been started on IV fluids. He had minimal urine output initially. However, his urine output has picked up now. He did receive one dose of IV Lasix 60 mg last night. PAST MEDICAL HISTORY: CHF mainly systolic, A. fib, COPD, CVA/TIA, hyperlipidemia, hypertension, previous history of pneumonia, history of EtOH abuse, cervical and lumbar spondylosis, carpal tunnel disease. PAST SURGICAL HISTORY: Cataract surgery, surgery for nephrolithiasis, surgery for hammer toes, umbilical hernia repair, colonoscopy, shoulder surgery. SOCIAL HISTORY: Patient is a current smoker. No history of drug abuse or alcohol abuse. He has a guardian. Lives with a friend. MEDICATIONS: Medications at home prior to admission included Flomax, metoprolol, pravastatin, aspirin, Xarelto, [place], Valium. ALLERGIES: Allergies include KEFLEX which causes rash and hives. REVIEW OF SYSTEMS: As per HPI. Other systems negative. PHYSICAL EXAMINATION: On examination, the patient is currently comfortable, awake. He is at times confused, however, is able to maintain a simple conversation. Blood pressure is 107/74, heart rate 101 per minute. The patient is afebrile. EXAMINATION OF THE HEART: S1, S2. EXAMINATION OF THE LUNGS: Bilateral breath sounds are heard. Abdomen is soft, nontender. Examination of the lower extremities shows no evidence of edema. MANAGER MAIL exam is grossly intact. LABS: Labs from today show sodium 134, potassium 4.2, BUN 89, serum creatinine 2.0, hemoglobin 7.5 g/dL. ASSESSMENT: 1. Acute kidney injury, mainly prerenal and secondary to hypotension hypoperfusion currently improved. Patient was initially diuresed. Currently he is maintained on IV fluids which I will continue for now. Chest x-ray from today is pending, however, from yesterday, there was no evidence of pulmonary vascular congestion. He had a right lower lobe infiltrate suggestive of pneumonia. Renal function is now improving. The patient is nonoliguric. Serum creatinine is down to 2.0 from 2.5. Initial creatinine was 0.9 mg/dL. 2. Hyperkalemia associated with acute kidney injury, currently improved. 3. Severe cardiomyopathy, ejection fraction less than 20%. 4. Congestive heart failure, acute on top of chronic on initial admission, mainly systolic now improved and patient is maintained on IV fluids. 5. Anemia. No active bleeding noted. Rule out iron deficiency. Consider gastrointestinal bleed given the hyperkalemia and the anemia. 6. Dyslipidemia. 7. Hypotension. Maintained on small dose of Levophed. 8. Atrial fibrillation with controlled ventricular response. Heart rate staying 101 to 109. PLAN: Continue with the normal saline for now. Follow up on result of chest x-ray. Continue empiric antibiotics. Try to wean off Levophed. I will check iron studies and check random cortisol level as well. MMODL / IJN: [id number] /
[2017-10-17] MEDS ORDERED: DEXTROSE 5% IN WATER 100 ML with AMIODARONE 150 MG IV ONE (09:00)
[2017-10-17] MEDS: ASPIRIN 81 MG PO SCH (09:03)
[2017-10-17] MEDS: NICOTINE 21MG/24HR PATCH TRANSDERM SCH (09:03)
[2017-10-17] MEDS: RIVAROXABAN 20 MG TAB PO SCH (09:06)
[2017-10-17] MEDS: DOXYCYCLINE 50 MG CAP PO SCH (09:06)
[2017-10-17] MEDS: BENZONATATE 100 MG CAP PO SCH ×3 (09:06→21:46)
[2017-10-17] MEDS: FAMOTIDINE 20 MG TAB PO SCH (09:06)
[2017-10-17 09:13] LABS: INR 2.6 (<1.2); Prothrombin Time 23.6 sec (9.0-12.0)
[2017-10-17] MEDS: METOPROLOL TARTRATE 50 MG TAB PO SCH ×3 (09:13→23:18)
--- NOTE | 2017-10-17 10:29 | P.PN ---
Subjective Progress Note Date: 10/17/17 Principal diagnosis: Patient is a 72 yo CM with a history of alcohol abuse, A. fib, COPD on chronic oxygen at 3 L nasal cannula who presented to the ER with complaints of shortness of breath. In the ER he underwent an extensive evaluation. He was found to be hypoxic at 84% of his 3 L nasal cannula. His heart rate was elevated at 148. Initial laboratory analysis showed an elevated BUN of 23. Slightly elevated troponin of 0.47 and an elevated BNP of 12,200. Chest x-ray showed cardiomegaly without overt heart failure. He was started on a Cardizem drip, bronchodilators, and Solu-Medrol. Despite this he still had increased work of breathing and he was subsequently admitted to the selective care unit. By the morning after admission his breathing had improved significantly. Cardiology was consulted and he was transitioned from cardizem gtt to oral verapamil. Over the evening on 10/14 his work of breathing increased and he was started on Bipap. His echo cam back with an EF of less than 20% and severe global hypokanesis. Patient reports to feeling much better today much improved work of breathing and not as supplement as yesterday patient requiring less supplemental oxygen still having diminished breath sounds with diffuse wheezes. ABG reviewed. Patient transferred to the ICU yesterday after being hypotensive despite IV fluid bolus, was started on levophed now currently at 1 g/kg. Objective - Vital Signs Vital signs: Vital Signs Temp 97.6 F 10/17/17 00:00 Pulse 108 H 10/17/17 07:47 Resp 16 10/17/17 07:00 BP 107/74 10/17/17 07:00 Pulse Ox 99 10/17/17 07:00 Intake & Output 10/16/17 10/17/17 10/17/17 18:59 06:59 18:59 Intake Total 1000 1230 100 Output Total 3125 150 Balance 1000 -1895 -50 Weight 74.1 kg 77 kg Intake: IV 825 0.9 825 Intake, IV Titration 1000 125 100 Amount Magnesium Sulfate-D5w Pmx 100 1 gm In Dextrose/Water 1 100ml.bag @ 100 mls/hr IVPB Q1H LUKASZ Rx#: [id number] Phytonadione 10 mg In 50 Sodium Chloride 0.9% 50 ml @ 100 mls/hr IVPB ONCE STA Rx#:[id number] Sodium Chloride 0.9% 1, 75 000 ml @ 75 mls/hr IV . [id number] LUKASZ Rx#:[id number] Sodium Chloride 0.9% 500 500 ml @ 999 mls/hr IV .Q31M ONE Rx#:[id number] Sodium Chloride 0.9% 500 500 ml @ 999 mls/hr IV .Q31M ONE Rx#:[id number] Oral 280 Output: Urine 3125 150 Other: Voiding Method Indwelling Catheter Indwelling Catheter # Voids 1 - Exam Constitutional: Moderate respiratory distress, conversant, pleasant Eyes: Anicteric sclerae, moist conjunctiva, no lid-lag, PERRLA ENMT: NC/AT,Oropharynx clear, no erythema, exudates Neck:Supple, FROM, no masses, or JVD, No carotid bruits; No thyromegaly Lungs: Diffuse coarse breath sounds and biphasic wheezes, Clear to percussion, on BiPAP Cardiovascular: Heart regular in rate and rhythm, No murmurs, gallops, or rubs no peripheral edema Abdominal: Soft Nontender, nom distended, no guarding, no rebound or rigidity, Normoactive bowel sounds No hepatomegaly, No splenomegaly, No palpable mass No abdominal wall hernia noted Skin: Normal temperature, tone, texture, turgor, No induration No subcutaneous nodules, No rash, lesions, No ulcers Extremities:No digital cyanosis No clubbing, Pedal pulses intact and symmetrical Radial pulses intact and symmetrical Normal gait and station, No calf tenderness Psychiatric: Alert and oriented to person, place and time, Appropriate affect Intact judgement Neuro: Muscles Strength 5/5 in all 4 extremities, Sensation to light touch grossly present throughout, Cranial nerves II-XII grossly intact. No focal sensory deficits - Labs CBC & Chem 7: 10/17/17 04:55 10/17/17 04:55 Labs: Abnormal Lab Results - Last 24 Hours (Table) 10/16/17 10/16/17 10/16/17 Range/Units 11:51 15:36 16:14 RBC (4.30-5.90) m/uL Hgb (13.0-17.5) gm/dL Hct (39.0-53.0) % MCHC (31.0-37.0) g/dL RDW (11.5-15.5) % Neutrophils # (1.3-7.7) k/uL Lymphocytes # (1.0-4.8) k/uL PT (9.0-12.0) sec INR (<1.2) APTT (22.0-30.0) sec Sodium (137-145) mmol/L Potassium (3.5-5.1) mmol/L Chloride (98-107) mmol/L Carbon Dioxide (22-30) mmol/L BUN (9-20) mg/dL Creatinine (0.66-1.25) mg/dL Glucose (74-99) mg/dL POC Glucose (mg/dL) 174 H 169 H 161 H (75-99) mg/dL Plasma Lactic Acid Elvis (0.7-2.0) mmol/L Calcium (8.4-10.2) mg/dL Phosphorus (2.5-4.5) mg/dL Total Bilirubin (0.2-1.3) mg/dL Total Creatine Kinase (55-170) U/L Total Protein (6.3-8.2) g/dL Urine Protein (Negative) Urine Blood (Negative) Ur Leukocyte Esterase (Negative) Urine RBC (0-5) /hpf Urine WBC (0-5) /hpf Urine Bacteria (None) /hpf Hyaline Casts (0-2) /lpf Urine Mucus (None) /hpf Urine Yeast (Budding) (None) /hpf 10/16/17 10/16/17 10/16/17 Range/Units 17:10 17:20 17:20 RBC (4.30-5.90) m/uL Hgb (13.0-17.5) gm/dL Hct (39.0-53.0) % MCHC (31.0-37.0) g/dL RDW (11.5-15.5) % Neutrophils # (1.3-7.7) k/uL Lymphocytes # (1.0-4.8) k/uL PT (9.0-12.0) sec INR (<1.2) APTT (22.0-30.0) sec Sodium 132 L (137-145) mmol/L Potassium 5.8 H (3.5-5.1) mmol/L Chloride 96 L (98-107) mmol/L Carbon Dioxide 19 L (22-30) mmol/L BUN 89 H* (9-20) mg/dL Creatinine 2.50 H (0.66-1.25) mg/dL Glucose 138 H (74-99) mg/dL POC Glucose (mg/dL) 157 H (75-99) mg/dL Plasma Lactic Acid Elvis (0.7-2.0) mmol/L Calcium 7.7 L (8.4-10.2) mg/dL Phosphorus (2.5-4.5) mg/dL Total Bilirubin 1.5 H (0.2-1.3) mg/dL Total Creatine Kinase 41 L (55-170) U/L Total Protein 6.1 L (6.3-8.2) g/dL Urine Protein (Negative) Urine Blood (Negative) Ur Leukocyte Esterase (Negative) Urine RBC (0-5) /hpf Urine WBC (0-5) /hpf Urine Bacteria (None) /hpf Hyaline Casts (0-2) /lpf Urine Mucus (None) /hpf Urine Yeast (Budding) (None) /hpf 10/16/17 10/16/17 10/16/17 Range/Units 17:20 17:20 17:20 RBC 3.13 L (4.30-5.90) m/uL Hgb 8.5 L (13.0-17.5) gm/dL Hct 29.5 L (39.0-53.0) % MCHC 28.7 L (31.0-37.0) g/dL RDW 18.5 H (11.5-15.5) % Neutrophils # 8.5 H (1.3-7.7) k/uL Lymphocytes # 0.6 L (1.0-4.8) k/uL PT 28.1 H (9.0-12.0) sec INR 3.1 H (<1.2) APTT 31.8 H (22.0-30.0) sec Sodium (137-145) mmol/L Potassium (3.5-5.1) mmol/L Chloride (98-107) mmol/L Carbon Dioxide (22-30) mmol/L BUN (9-20) mg/dL Creatinine (0.66-1.25) mg/dL Glucose (74-99) mg/dL POC Glucose (mg/dL) (75-99) mg/dL Plasma Lactic Acid Elvis 3.3 H* (0.7-2.0) mmol/L Calcium (8.4-10.2) mg/dL Phosphorus (2.5-4.5) mg/dL Total Bilirubin (0.2-1.3) mg/dL Total Creatine Kinase (55-170) U/L Total Protein (6.3-8.2) g/dL Urine Protein (Negative) Urine Blood (Negative) Ur Leukocyte Esterase (Negative) Urine RBC (0-5) /hpf Urine WBC (0-5) /hpf Urine Bacteria (None) /hpf Hyaline Casts (0-2) /lpf Urine Mucus (None) /hpf Urine Yeast (Budding) (None) /hpf 10/16/17 10/16/17 10/17/17 Range/Units 21:05 23:50 04:55 RBC (4.30-5.90) m/uL Hgb (13.0-17.5) gm/dL Hct (39.0-53.0) % MCHC (31.0-37.0) g/dL RDW (11.5-15.5) % Neutrophils # (1.3-7.7) k/uL Lymphocytes # (1.0-4.8) k/uL PT (9.0-12.0) sec INR (<1.2) APTT (22.0-30.0) sec Sodium (137-145) mmol/L Potassium (3.5-5.1) mmol/L Chloride (98-107) mmol/L Carbon Dioxide (22-30) mmol/L BUN (9-20) mg/dL Creatinine (0.66-1.25) mg/dL Glucose (74-99) mg/dL POC Glucose (mg/dL) (75-99) mg/dL Plasma Lactic Acid Elvis (0.7-2.0) mmol/L Calcium (8.4-10.2) mg/dL Phosphorus (2.5-4.5) mg/dL Total Bilirubin (0.2-1.3) mg/dL Total Creatine Kinase 37 L 35 L (55-170) U/L Total Protein (6.3-8.2) g/dL Urine Protein Trace H (Negative) Urine Blood Moderate H (Negative) Ur Leukocyte Esterase Moderate H (Negative) Urine RBC 28 H (0-5) /hpf Urine WBC 13 H (0-5) /hpf Urine Bacteria Occasional H (None) /hpf Hyaline Casts 8 H (0-2) /lpf Urine Mucus Rare H (None) /hpf Urine Yeast (Budding) Occasional H (None) /hpf 10/17/17 10/17/17 10/17/17 Range/Units 04:55 04:55 08:20 RBC 2.83 L (4.30-5.90) m/uL Hgb 7.5 L (13.0-17.5) gm/dL Hct 25.4 L (39.0-53.0) % MCHC 29.8 L (31.0-37.0) g/dL RDW 18.5 H (11.5-15.5) % Neutrophils # (1.3-7.7) k/uL Lymphocytes # 0.2 L (1.0-4.8) k/uL PT 23.6 H (9.0-12.0) sec INR 2.6 H (<1.2) APTT (22.0-30.0) sec Sodium 134 L (137-145) mmol/L Potassium (3.5-5.1) mmol/L Chloride 96 L (98-107) mmol/L Carbon Dioxide (22-30) mmol/L BUN 89 H* (9-20) mg/dL Creatinine 2.00 H (0.66-1.25) mg/dL Glucose 143 H (74-99) mg/dL POC Glucose (mg/dL) (75-99) mg/dL Plasma Lactic Acid Elvis (0.7-2.0) mmol/L Calcium 7.7 L (8.4-10.2) mg/dL Phosphorus 5.3 H (2.5-4.5) mg/dL Total Bilirubin (0.2-1.3) mg/dL Total Creatine Kinase (55-170) U/L Total Protein (6.3-8.2) g/dL Urine Protein (Negative) Urine Blood (Negative) Ur Leukocyte Esterase (Negative) Urine RBC (0-5) /hpf Urine WBC (0-5) /hpf Urine Bacteria (None) /hpf Hyaline Casts (0-2) /lpf Urine Mucus (None) /hpf Urine Yeast (Budding) (None) /hpf Microbiology - Last 24 Hours (Table) 10/16/17 21:05 Urine Culture - Preliminary Urine,Catheterized Assessment and Plan Plan: Hypotension * Multifactorial * Hypovolemic shock ( overdiuresis with worsening BUN and creatinine) superimposed on cardiogenic shock (severe cardiomyopathy) * We'll hold antihypertensive regimen today, currently on IV pressor LEVOphed Newly discovered systolic cardiomyopathy, decompensated on arrival, EF <20% - D/W cardio stop verapamil and increase metoprolol to 100mg BID - ? need for ischemic eval and timing - no candidate for ACEI at this time due to STANLEY and hyperkalemia yesterday - stric I and O - Daily weights STANLEY - suspect due to forced diureis versus cardiorenal - hold lasix, no IVF with low EF and increased work of breathing - Avoid additional nephrotoxic agents, will consult nephrology today -Creatinine trending trending down from 2.2 to 2, now with improved urine output acute on chronic hypoxic respiratory failure secondary to Acute exacerbation of COPD superimposed on severe cardiomyopathy * Chest x-ray suggesting a right lower lobe infiltrate or atelectasis, patient afebrile leukocytosis - Duoneb 4 times daily, when necessary bronchodilators - symbicort transitioned to performist and pulmicort -IV steroids reinitiated by pulmonary - Doxycycline - Pulmonary hygiene with incentive spirometry A. fib with RVR with elevated troponin - Troponin likely elevated secondary to demand ischemia -Serial troponins flat - metoprolol - cardio recs appreciated - Continue Xarelto - tele EtOH abuse -CIWY protocol -Thiamine and folic acid Chronic anemia currently at baseline * Hemoglobin down to 7.5, could consider transfusing 1 unit of packed RBCs -Patient denied evidence of GI bleeding -Serial CBC as outpatient Hypertension, controlled -Continue home medications Dyslipidemia -Continue statin DVT prophylaxis: Xarelto Disposition * Patient clinically looks better today we'll continue to monitor Discussed with: Patient, nursing, cardiology Anticipated discharge: 2-[address]: Home with home health A total of 35 minutes was spent on the care of this complex patient more than 50 % of the time was spent in counseling and care coordination.
[2017-10-17] MEDS: AMIODARONE 450 MG in DEXTROSE 5% IN WATER 250 ML IV SCH ×2 (10:30)
[2017-10-17] MEDS: PIPERACILLIN-TAZOBACTAM 3.375 GM in DEXTROSE/WATER 1 50ML.BAG IVPB SCH ×2 (10:45→16:29)
--- NOTE | 2017-10-17 11:58 | US ---
EXAMINATION TYPE: US kidneys/renal and bladder DATE OF EXAM: 10/18/19 COMPARISON: CT abdomen and pelvis January 16, 2017 CLINICAL HISTORY: rf. EXAM MEASUREMENTS: Right Kidney: 11.0 x 4.5 x 4.5 cm Left Kidney: 9.5 x 6.4 x 4.7 cm ICU patient, technically difficult study, excessive overlying bowel gas, limited views. Right Kidney: see above limitations, no hydro or mass identified Left Kidney: more limited that right, may be foreshortened due to limited visualization Bladder: not seen Ascites seen Adjacent liver shows heterogeneous hyperechoic appearance and lobulation consistent with cirrhosis wi th small amount of surrounding ascites. Visualized portion of right kidney shows no hydronephrosis or worrisome mass. Bladder is suboptimally evaluated due to nondistention. No gross hydronephrosis is s een on images obtained of the left kidney. IMPRESSION: Suboptimal study without hydronephrosis identified bilaterally. Underlying cirrhosis and portal hyper tension is felt present.
[2017-10-17] MEDS: FOLIC ACID 1 MG TAB PO SCH (13:13)
[2017-10-17] MEDS: THIAMINE 100 MG TAB PO SCH ×2 (13:13→16:28)
--- NOTE | 2017-10-17 13:20 | PN ---
PROGRESS NOTE Juan Carlos Hills was moved to the ICU yesterday for shortness of breath and low blood pressure. He was admitted with COPD exacerbation and also had A. fib with RVR. He has cardiomyopathy which is new. He has known history of heavy alcohol use. He has been treated for cardiomyopathy with medications. He is currently on IV antibiotics. Blood pressure is low. He is on Levophed. I have started him on amiodarone today. He is lying comfortably in bed. He is still wheezing. He appears short of breath. No chest discomfort. Abdomen is soft, nontender. Breath sounds are reduced bilaterally. Heart sounds are irregular and tachycardic. IMPRESSION: 1. Atrial fibrillation with rapid ventricular response. 2. Cardiomyopathy, severe. 3. Congestive heart failure. 4. Chronic obstructive pulmonary disease exacerbation and pulmonary infection, being treated for this. 5. History of alcohol use. SUGGEST: Medical treatment for atrial fibrillation and cardiomyopathy. MMODL / IJN: [id number] /
--- NOTE | 2017-10-17 14:05 | P.PN ---
Subjective Progress Note Date: 10/17/17 72-year-old male patient, known history of advanced COPD with chronic hypoxic respiratory failure in addition to history of chronic alcoholism, history of fall with pulmonary contusion, traumatic rib fracture for which the patient was hospitalized back in 2017, history of chronic atrial fibrillation, CHF, hypertension, CVA involving the temporal lobe, hyperlipidemia, chronic anemia and cervical and lumbar stenosis. The patient continues to drink alcohol excessively around pint on a daily basis. The patient presented to the hospital because of worsening shortness of breath a few days duration. He was using his DuoNeb nebulized treatments without any improvement. He was also using the Combivent. The patient is oxygen dependent and utilize oxygen at 3 L at all times. His sputum production was essentially whitish and there was no hemoptysis or pleurisy. In the hospital, the patient was further found to be nature fibrillation with rapid ventricular response. The patient was thought to be CHF knowing that his proBNP level was quite elevated at 12,200. Troponins were also mildly elevated at 0.04 and 0.03 respectively. The patient was started on diuretics knowing that the chest x-ray showed cardiomegaly and echocardiac Dimas showed improvement in the left atrial ejection fraction with an EF of around 20%. The patient diuresed adequately and the patient became prerenal and the creatinine is up to 1.7. Currently is diuretics is on hold. Meanwhile COPD exacerbations being still treated with a combination of bronchodilators and steroids. The patient is currently on Pulmicort Respules, DuoNeb neb last treatment [id number], prednisone burst taper starting with 40 mg and the patient is also on doxycycline as an empiric antibiotic coverage. No signs of any delirium tremens. His resting comfortably in bed. He remains in atrial fibrillation. Is on Xarelto for anticoagulation. He is still smoking. 10/16/2017 patient seen in follow-up on selective care unit. He was noted to be more lethargic this morning, and he was hypotensive with SBP in the 80s, and DBP in the 50s. Remains afebrile, remains in A. fib, on his heart rate is better controlled, ranging from 80s to 110s BPM. Today's lab work was reviewed , and the patient's renal function is worsening, B1 is up to 80/56, and creatinine is up to 2.24 from 1.7 on yesterday's labs. Serum sodium is 135 potassium is 5.2, WBC of 7.7, and hemoglobin of 7.7. His diuretics were placed on hold in view of worsening renal function and hypotension. Patient is receiving an IV fluid bolus of 500 mL of 0.9 normal saline, and we will give the patient additional 500 mL of fluids. Encourage oral fluid intake. At the time of her evaluation patient is awake alert, lung sounds are positive for diffuse wheezing, and rhonchi. Patient productive cough with production of yellow sputum. Patient was initially placed on prednisone, we will stop the patient increase it to Solu-Medrol 60 mg every 6 hours. Continues on empiric antibiotics doxycycline. No fever no chills. His chest x-ray was reviewed with Dr. Perez and shows left pleural effusion no other acute process identified. On 10/17/2017 the patient is being seen in intensive care unit. Please note the events that occurred yesterday. I will the patient in intensive care unit as the patient was developing hypotension, diminished urine output and diminished level of consciousness. A triple lumen catheter was inserted. The patient was given a total of 2 L of IV bolus. Subsequently he was given a dose of Lasix 60 mg IV push knowing that he was not producing much of urine output. A triple-lumen catheter was inserted and the CVP initially was 24. Over night, the patient's urine output improved and is currently producing more than 50 mL an hour of urine output. Renal function is also improving and creatinine is down to 2.0. Today chest x-ray shows development of a right lower lobe consolidation, probably an area of pneumonia. Noted the patient was receiving doxycycline 40s to be exacerbation treatment/empiric antibiotic coverage. Hemodynamically stable. Pressors have been weaned off and discontinued and the patient is maintaining his own blood pressure. IV fluids TO KVO. The antibiotics will be further broaden. He is afebrile. He has a congested cough and sputum will be sent for Gram stain and culture. No altered mentation. Remains on examination bronchodilators and steroids regarding his COPD exacerbation. As mentioned, is alcoholic and he has a very poor LV function with ejection fraction of 20% consistent with alcoholic cardiomyopathy. The patient also developed some tachycardia regarding his atrial fibrillation. He was started on amiodarone bolus and loading by cardiology. The beta blockers have been discontinued earlier because of his underlying hypotension. In any rate, the metoprolol can be restarted once the blood pressure stabilizes. The patient is receiving amiodarone in addition to Xarelto for long-term anticoagulation regarding his atrial fibrillation. No signs of any delirium tremens. Mental status is more appropriate compared to yesterday. Objective - Vital Signs Vital signs: Vital Signs Temp 98.4 F 10/17/17 08:00 Pulse 117 H 10/17/17 13:00 Resp 21 10/17/17 13:00 BP 92/72 10/17/17 13:00 Pulse Ox 97 10/17/17 13:00 Intake & Output 10/16/17 10/17/17 10/17/17 18:59 06:59 18:59 Intake Total 1000 1230 900.625 Output Total 3125 885 Balance 1000 -1895 15.625 Weight 74.1 kg 77 kg 77 kg Intake: IV 825 95 0.9 825 95 Intake, IV Titration 1000 125 205.625 Amount Magnesium Sulfate-D5w Pmx 200 1 gm In Dextrose/Water 1 100ml.bag @ 100 mls/hr IVPB Q1H [facility] Rx#: [id number] Norepinephrine 4 mg In 5.625 Sodium Chloride 0.9% 250 ml @ Titrate IV .Q0M [facility] Rx#:[id number] Phytonadione 10 mg In 50 Sodium Chloride 0.9% 50 ml @ 100 mls/hr IVPB [facility] Rx#:[id number] Sodium Chloride 0.9% 1, 75 000 ml @ 20 mls/hr IV . Q24H [facility] Rx#:[id number] Sodium Chloride 0.9% 500 500 ml @ 999 mls/hr IV .Q31M [facility] Rx#:[id number] Sodium Chloride 0.9% 500 500 ml @ 999 mls/hr IV .Q31M [facility] Rx#:[id number] Oral 280 600 Output: Urine 3125 885 Other: Voiding Method Indwelling Catheter Indwelling Catheter Indwelling Catheter # Voids 1 - Exam Thin frail elderly male patient, mildly short of breath at rest, patient has been wearing a BiPAP mask intermittently. No signs of any tremors or confusion or agitation at this point in time. He is following commands and answering questions appropriately. There was no scleral icterus or corneal arcus. Mucous membranes were moist.Neck was supple and without jugular venous distension, thyromegaly, or carotid bruits. Carotids were easily palpable bilaterally. There was no adenopathy. The patient has a triple lumen catheter inserted in the left subclavian vein. The exit site is clean at this point. Lung sounds are diminished in the lung bases especially in the right lung base and there is diffuse expiratory wheezes throughout the lung his bilaterally along with prolongation of the expiratory phase of breathing Cardiac exam revealed the PMI to be normally situated and sized. The rhythm was irregular and no extrasystoles were noted during several minutes of auscultation. The first and second heart sounds were normal and physiologic splitting of the second heart sound was noted. There were no murmurs, rubs, clicks, or gallops.Abdominal exam revealed normal bowel sounds. The abdomen was soft, non-tender, and without masses, organomegaly, or appreciable enlargement of the abdominal aorta. Extremities show diffuse muscle atrophy. As a cyanosis or clubbing. Pulses are equal and symmetrical bilaterally in 4 extremities. Neurologically, the patient is awake and alert and following commands and answering questions appropriately. Examination of the skin revealed no evidence of significant rashes, suspicious appearing nevi or other concerning lesions. - Labs CBC & Chem 7: 10/17/17 04:55 10/17/17 04:55 Labs: Abnormal Lab Results - Last 24 Hours (Table) 10/16/17 10/16/17 10/16/17 Range/Units 15:36 16:14 17:10 RBC (4.30-5.90) m/uL Hgb (13.0-17.5) gm/dL Hct (39.0-53.0) % MCHC (31.0-37.0) g/dL RDW (11.5-15.5) % Neutrophils # (1.3-7.7) k/uL Lymphocytes # (1.0-4.8) k/uL PT (9.0-12.0) sec INR (<1.2) APTT (22.0-30.0) sec Sodium (137-145) mmol/L Potassium (3.5-5.1) mmol/L Chloride (98-107) mmol/L Carbon Dioxide (22-30) mmol/L BUN (9-20) mg/dL Creatinine (0.66-1.25) mg/dL Glucose (74-99) mg/dL POC Glucose (mg/dL) 169 H 161 H 157 H (75-99) mg/dL Plasma Lactic Acid Elvis (0.7-2.0) mmol/L Calcium (8.4-10.2) mg/dL Phosphorus (2.5-4.5) mg/dL Total Bilirubin (0.2-1.3) mg/dL Total Creatine Kinase (55-170) U/L Total Protein (6.3-8.2) g/dL Urine Protein (Negative) Urine Blood (Negative) Ur Leukocyte Esterase (Negative) Urine RBC (0-5) /hpf Urine WBC (0-5) /hpf Urine Bacteria (None) /hpf Hyaline Casts (0-2) /lpf Urine Mucus (None) /hpf Urine Yeast (Budding) (None) /hpf 10/16/17 10/16/17 10/16/17 Range/Units 17:20 17:20 17:20 RBC 3.13 L (4.30-5.90) m/uL Hgb 8.5 L (13.0-17.5) gm/dL Hct 29.5 L (39.0-53.0) % MCHC 28.7 L (31.0-37.0) g/dL RDW 18.5 H (11.5-15.5) % Neutrophils # 8.5 H (1.3-7.7) k/uL Lymphocytes # 0.6 L (1.0-4.8) k/uL PT (9.0-12.0) sec INR (<1.2) APTT (22.0-30.0) sec Sodium 132 L (137-145) mmol/L Potassium 5.8 H (3.5-5.1) mmol/L Chloride 96 L (98-107) mmol/L Carbon Dioxide 19 L (22-30) mmol/L BUN 89 H* (9-20) mg/dL Creatinine 2.50 H (0.66-1.25) mg/dL Glucose 138 H (74-99) mg/dL POC Glucose (mg/dL) (75-99) mg/dL Plasma Lactic Acid Elvis (0.7-2.0) mmol/L Calcium 7.7 L (8.4-10.2) mg/dL Phosphorus (2.5-4.5) mg/dL Total Bilirubin 1.5 H (0.2-1.3) mg/dL Total Creatine Kinase 41 L (55-170) U/L Total Protein 6.1 L (6.3-8.2) g/dL Urine Protein (Negative) Urine Blood (Negative) Ur Leukocyte Esterase (Negative) Urine RBC (0-5) /hpf Urine WBC (0-5) /hpf Urine Bacteria (None) /hpf Hyaline Casts (0-2) /lpf Urine Mucus (None) /hpf Urine Yeast (Budding) (None) /hpf 10/16/17 10/16/17 10/16/17 Range/Units 17:20 17:20 21:05 RBC (4.30-5.90) m/uL Hgb (13.0-17.5) gm/dL Hct (39.0-53.0) % MCHC (31.0-37.0) g/dL RDW (11.5-15.5) % Neutrophils # (1.3-7.7) k/uL Lymphocytes # (1.0-4.8) k/uL PT 28.1 H (9.0-12.0) sec INR 3.1 H (<1.2) APTT 31.8 H (22.0-30.0) sec Sodium (137-145) mmol/L Potassium (3.5-5.1) mmol/L Chloride (98-107) mmol/L Carbon Dioxide (22-30) mmol/L BUN (9-20) mg/dL Creatinine (0.66-1.25) mg/dL Glucose (74-99) mg/dL POC Glucose (mg/dL) (75-99) mg/dL Plasma Lactic Acid Elvis 3.3 H* (0.7-2.0) mmol/L Calcium (8.4-10.2) mg/dL Phosphorus (2.5-4.5) mg/dL Total Bilirubin (0.2-1.3) mg/dL Total Creatine Kinase (55-170) U/L Total Protein (6.3-8.2) g/dL Urine Protein Trace H (Negative) Urine Blood Moderate H (Negative) Ur Leukocyte Esterase Moderate H (Negative) Urine RBC 28 H (0-5) /hpf Urine WBC 13 H (0-5) /hpf Urine Bacteria Occasional H (None) /hpf Hyaline Casts 8 H (0-2) /lpf Urine Mucus Rare H (None) /hpf Urine Yeast (Budding) Occasional H (None) /hpf 10/16/17 10/17/17 10/17/17 Range/Units 23:50 04:55 04:55 RBC 2.83 L (4.30-5.90) m/uL Hgb 7.5 L (13.0-17.5) gm/dL Hct 25.4 L (39.0-53.0) % MCHC 29.8 L (31.0-37.0) g/dL RDW 18.5 H (11.5-15.5) % Neutrophils # (1.3-7.7) k/uL Lymphocytes # 0.2 L (1.0-4.8) k/uL PT (9.0-12.0) sec INR (<1.2) APTT (22.0-30.0) sec Sodium (137-145) mmol/L Potassium (3.5-5.1) mmol/L Chloride (98-107) mmol/L Carbon Dioxide (22-30) mmol/L BUN (9-20) mg/dL Creatinine (0.66-1.25) mg/dL Glucose (74-99) mg/dL POC Glucose (mg/dL) (75-99) mg/dL Plasma Lactic Acid Elvis (0.7-2.0) mmol/L Calcium (8.4-10.2) mg/dL Phosphorus (2.5-4.5) mg/dL Total Bilirubin (0.2-1.3) mg/dL Total Creatine Kinase 37 L 35 L (55-170) U/L Total Protein (6.3-8.2) g/dL Urine Protein (Negative) Urine Blood (Negative) Ur Leukocyte Esterase (Negative) Urine RBC (0-5) /hpf Urine WBC (0-5) /hpf Urine Bacteria (None) /hpf Hyaline Casts (0-2) /lpf Urine Mucus (None) /hpf Urine Yeast (Budding) (None) /hpf 10/17/17 10/17/17 Range/Units 04:55 08:20 RBC (4.30-5.90) m/uL Hgb (13.0-17.5) gm/dL Hct (39.0-53.0) % MCHC (31.0-37.0) g/dL RDW (11.5-15.5) % Neutrophils # (1.3-7.7) k/uL Lymphocytes # (1.0-4.8) k/uL PT 23.6 H (9.0-12.0) sec INR 2.6 H (<1.2) APTT (22.0-30.0) sec Sodium 134 L (137-145) mmol/L Potassium (3.5-5.1) mmol/L Chloride 96 L (98-107) mmol/L Carbon Dioxide (22-30) mmol/L BUN 89 H* (9-20) mg/dL Creatinine 2.00 H (0.66-1.25) mg/dL Glucose 143 H (74-99) mg/dL POC Glucose (mg/dL) (75-99) mg/dL Plasma Lactic Acid Elvis (0.7-2.0) mmol/L Calcium 7.7 L (8.4-10.2) mg/dL Phosphorus 5.3 H (2.5-4.5) mg/dL Total Bilirubin (0.2-1.3) mg/dL Total Creatine Kinase (55-170) U/L Total Protein (6.3-8.2) g/dL Urine Protein (Negative) Urine Blood (Negative) Ur Leukocyte Esterase (Negative) Urine RBC (0-5) /hpf Urine WBC (0-5) /hpf Urine Bacteria (None) /hpf Hyaline Casts (0-2) /lpf Urine Mucus (None) /hpf Urine Yeast (Budding) (None) /hpf Microbiology - Last 24 Hours (Table) 10/16/17 21:05 Urine Culture - Preliminary Urine,Catheterized Assessment and Plan Plan: 1 shortness of breath, multifactorial, essentially due to pulmonary cardiac conditions. Currently the patient is an acute COPD exacerbation and he did have a component of CHF at the time of admission which improved. At this point in time, there is a concern for a right lower lobe pneumonia knowing that the patient's chest x-ray from today shows a consolidation involving the right lower lobe. Possibility of fluid overload/CHF cannot be completely excluded as the patient required several boluses of IV fluid overnight to improve his urine output. 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 Rule out diuretic effect. Rule out cardiorenal factors. The patient was given fluids and his CVP is as high as 16 from this morning. A dose of Lasix was also given overnight and since then the patient's urine output is improved. Currently is producing approximately 40-50 mL an hour. His net fluid balance for yesterday was -895 mL. Renal function is also improving and creatinine is down to 2.0. 5 previous history of traumatic right-sided hemothorax requiring chest tube insertion and subsequent removal 6 previous history of chest wall contusion/pulmonary contusion related to a fall 7 alcoholism 8 his hospitalization for acute alcohol intoxication 9 chronic atrial fibrillation, rate is controlled as the patient was started on amiodarone drip this morning for rate control. He is also on Xarelto. 10 hypertension 11 smoker 12 previous history of CVA involving the left temporal lobe 13 hyperlipidemia 14 cervical/lumbar spondylosis 15 chronic normocytic anemia, with interval drop in hemoglobin down to 7.5 Plan Monitor hemodynamics. Cut down the IV fluids to KVO. Stop back segment and broaden antibiotic coverage to include Zosyn. No need for diuretics at this point as the patient is producing adequate amount of urine output. Renal function continues to improve in the creatinine is down to 2.0. Complete the amiodarone bolus and loading and the need for maintenance will be kept up to cardiology. He is also on metoprolol that will be started once his off pressors for the next 6 hours. Cardiology is on the case. We'll continue to follow. We'll make further recommendations based on his progress. He'll be kept in ICU for now. Repeat chest x-ray in the morning.
[2017-10-17] MEDS: HYDROcodone/APAP 5-325MG 1 EACH TAB PO PRN ×2 (16:45→21:50)
[2017-10-17 17:37] LABS: Iron Saturation 2.1 (15.00-50.00)
[2017-10-17] MEDS: PRAVASTATIN SODIUM 40 MG TAB PO SCH (21:46)
[2017-10-17] MEDS: TAMSULOSIN 0.4 MG CAP.ER.24H PO SCH (21:46)
[2017-10-18] MEDS: methylPREDNISolone SOD SUCCI 125 MG/2 ML VIAL IV SCH ×4 (00:31→17:03)
[2017-10-18] MEDS: PIPERACILLIN-TAZOBACTAM 3.375 GM in DEXTROSE/WATER 1 50ML.BAG IVPB SCH ×3 (00:31→16:40)
[2017-10-18] MEDS: AMIODARONE 450 MG in DEXTROSE 5% IN WATER 250 ML IV SCH ×6 (00:32→10:06)
[2017-10-18] MEDS: IPRATROPIUM-ALBUTEROL 3 ML NEB INHALATION SCH ×6 (03:20→23:44)
[2017-10-18 05:11] LABS: Anisocytosis Slight; Basophils % (A) 0 %; Eosinophils % (A) 0 %; HCT 23.1 % (39.0-53.0); Hypochromasia Marked; Lymphocytes # (A) 0.2 k/uL (1.0-4.8); Lymphocytes % (A) 4 %; MCH 26.2 pg (25.0-35.0); MCHC 29.5 g/dL (31.0-37.0); MCV 88.8 fL (80.0-100.0); Mean Platelet Volume 8.2; Monocytes # (A) 0.2 k/uL (0-1.0); Monocytes % (A) 4 %; Neutrophils # (A) 3.6 k/uL (1.3-7.7); Neutrophils % (A) 91 %; Platelet Count 187 k/uL (150-450); RDW 18.4 % (11.5-15.5); WBC 3.9 k/uL (3.8-10.6)
[2017-10-18 05:13] LABS: HGB 6.8 gm/dL (13.0-17.5)
[2017-10-18 05:24] LABS: Calcium 7.8 mg/dL (8.4-10.2); Magnesium 2.3 mg/dL (1.6-2.3); Phosphorus 3.3 mg/dL (2.5-4.5); Potassium 3.6 mmol/L (3.5-5.1)
[2017-10-18] MEDS ORDERED: Potassium Replacement Protocol 1 EACH MISC MISCELLANE PRN (05:59)
[2017-10-18] MEDS ORDERED: POTASSIUM CHLORIDE ER 20 MEQ TAB.ER PO SCH (06:00)
--- NOTE | 2017-10-18 07:28 | XR ---
EXAMINATION TYPE: XR chest 1V DATE OF EXAM: 10/18/2017 COMPARISON: 10/17/2017 HISTORY: 72-year-old male CHF TECHNIQUE: Single frontal view of the chest is obtained. FINDINGS: Left subclavian CVC tip in the lower SVC. Remains mildly enlarged. Prominent bibasilar densities ryley in. Trace right pleural effusion. Partially visualized reversed right total shoulder arthroplasty IMPRESSION: Continued cardiomegaly with prominent bilateral lower lung densities and trace right effusion. No sig nificant improvement. Findings could reflect sequela of CHF or underlying infiltrates.
[2017-10-18] MEDS: FORMOTEROL FUMARATE 20 MCG/2 ML NEBU INHALATION SCH ×2 (07:38→20:00)
[2017-10-18] MEDS: BUDESONIDE 1 MG/2 ML NEBU INHALATION SCH ×2 (07:38→20:00)
[2017-10-18] MEDS: NICOTINE 21MG/24HR PATCH TRANSDERM SCH (08:35)
[2017-10-18] MEDS: METOPROLOL TARTRATE 50 MG TAB PO SCH ×3 (08:36→21:24)
[2017-10-18] MEDS: FAMOTIDINE 20 MG TAB PO SCH (08:36)
[2017-10-18] MEDS: BENZONATATE 100 MG CAP PO SCH ×3 (08:36→21:24)
[2017-10-18] MEDS: ASPIRIN 81 MG PO SCH (08:36)
[2017-10-18] MEDS: HYDROcodone/APAP 5-325MG 1 EACH TAB PO PRN ×3 (08:38→22:29)
[2017-10-18] MEDS ORDERED: FUROSEMIDE 10 MG/ML 4 ML VIAL IV STA (09:15)
[2017-10-18] MEDS: RIVAROXABAN 20 MG TAB PO SCH (09:17)
--- NOTE | 2017-10-18 09:40 | P.PN ---
Subjective Progress Note Date: 10/18/17 Principal diagnosis: Patient is a 72 yo CM with a history of alcohol abuse, A. fib, COPD on chronic oxygen at 3 L nasal cannula who presented to the ER with complaints of shortness of breath. In the ER he underwent an extensive evaluation. He was found to be hypoxic at 84% of his 3 L nasal cannula. His heart rate was elevated at 148. Initial laboratory analysis showed an elevated BUN of 23. Slightly elevated troponin of 0.47 and an elevated BNP of 12,200. Chest x-ray showed cardiomegaly without overt heart failure. He was started on a Cardizem drip, bronchodilators, and Solu-Medrol. Despite this he still had increased work of breathing and he was subsequently admitted to the selective care unit. By the morning after admission his breathing had improved significantly. Cardiology was consulted and he was transitioned from cardizem gtt to oral verapamil. Over the evening on 10/14 his work of breathing increased and he was started on Bipap. His echo cam back with an EF of less than 20% and severe global hypokanesis. Patient reports feeling better this morning, currently receiving high flow nebulizer treatment, definitely more awake and alert, patient's blood pressures are improved. Has been off leave us that since yesterday but continues to be tachycardic with A. fib Objective - Vital Signs Vital signs: Vital Signs Temp 97.5 F L 10/18/17 08:19 Pulse 105 H 10/18/17 09:00 Resp 22 10/18/17 09:00 BP 111/75 10/18/17 09:00 Pulse Ox 99 10/18/17 09:00 Intake & Output 10/17/17 10/18/17 10/18/17 18:59 06:59 18:59 Intake Total 1388.383 272.242 590.775 Output Total 1255 850 260 Balance 133.383 -577.758 330.775 Weight 77 kg 76.4 kg Intake: IV 385 220 85.0 0.9 235 220 60 Magnesium Sulfate-D5w Pmx 100 1 gm In Dextrose/Water 1 100ml.bag @ 100 mls/hr IVPB Q1H [facility] Rx#: [id number] Piperacillin-Tazobactam 3 50 25.0 .375 gm In Dextrose/Water 1 50ml.bag @ 12.5 mls/hr IVPB Q8HR [facility] Rx#: [id number] Intake, IV Titration 403.383 52.242 145.775 Amount Amiodarone 450 mg In 197.758 52.242 145.775 Dextrose 5% in Water 250 ml @ 1 MG/MIN 33.33 mls/ hr IV .Q7H31M [facility] Rx#: [id number] Magnesium Sulfate-D5w Pmx 200 1 gm In Dextrose/Water 1 100ml.bag @ 100 mls/hr IVPB Q1H [facility] Rx#: [id number] Norepinephrine 4 mg In 5.625 Sodium Chloride 0.9% 250 ml @ Titrate IV .Q0M [facility] Rx#:[id number] Oral 600 360 Blood Product 0 Rc As-1 Unit 0 [id number] Output: Urine 1255 850 260 Other: Voiding Method Indwelling Catheter Indwelling Catheter - Exam Constitutional: Moderate respiratory distress, conversant, pleasant Eyes: Anicteric sclerae, moist conjunctiva, no lid-lag, PERRLA ENMT: NC/AT,Oropharynx clear, no erythema, exudates Neck:Supple, FROM, no masses, or JVD, No carotid bruits; No thyromegaly Lungs: Improved aeration expiratory wheezes Clear to percussion, on 2 L nasal cannula Cardiovascular: Irregularly irregular No murmurs, gallops, or rubs no peripheral edema Abdominal: Soft Nontender, nom distended, no guarding, no rebound or rigidity, Normoactive bowel sounds No hepatomegaly, No splenomegaly, No palpable mass No abdominal wall hernia noted Skin: Normal temperature, tone, texture, turgor, No induration No subcutaneous nodules, No rash, lesions, No ulcers Extremities:No digital cyanosis No clubbing, Pedal pulses intact and symmetrical Radial pulses intact and symmetrical Normal gait and station, No calf tenderness Psychiatric: Alert and oriented to person, place and time, Appropriate affect Intact judgement Neuro: Muscles Strength 5/5 in all 4 extremities, Sensation to light touch grossly present throughout, Cranial nerves II-XII grossly intact. No focal sensory deficits - Labs CBC & Chem 7: 10/18/17 05:00 10/18/17 05:00 Labs: Abnormal Lab Results - Last 24 Hours (Table) 10/17/17 10/18/17 10/18/17 Range/Units 04:55 05:00 05:00 RBC 2.60 L (4.30-5.90) m/uL Hgb 6.8 L* (13.0-17.5) gm/dL Hct 23.1 L (39.0-53.0) % MCHC 29.5 L (31.0-37.0) g/dL RDW 18.4 H (11.5-15.5) % Lymphocytes # 0.2 L (1.0-4.8) k/uL Sodium 133 L (137-145) mmol/L Chloride 96 L (98-107) mmol/L BUN 68 H (9-20) mg/dL Glucose 154 H (74-99) mg/dL Calcium 7.8 L (8.4-10.2) mg/dL Iron 8 L (65-175) ug/dL Iron Saturation 2.10 L (15.00-50.00) Crossmatch 10/18/17 Range/Units 05:35 RBC (4.30-5.90) m/uL Hgb (13.0-17.5) gm/dL Hct (39.0-53.0) % MCHC (31.0-37.0) g/dL RDW (11.5-15.5) % Lymphocytes # (1.0-4.8) k/uL Sodium (137-145) mmol/L Chloride (98-107) mmol/L BUN (9-20) mg/dL Glucose (74-99) mg/dL Calcium (8.4-10.2) mg/dL Iron (65-175) ug/dL Iron Saturation (15.00-50.00) Crossmatch See Detail Microbiology - Last 24 Hours (Table) 10/17/17 19:15 Gram Stain - Preliminary Sputum Sputum Culture - Preliminary 10/16/17 21:05 Urine Culture - Final Urine,Catheterized 10/16/17 23:50 Blood Culture - Preliminary Blood No Growth after 24 hours 10/16/17 17:20 Blood Culture - Preliminary Blood No Growth after 24 hours Assessment and Plan Plan: acute on chronic hypoxic respiratory failure secondary to Acute exacerbation of COPD superimposed on severe cardiomyopathy * Chest x-ray suggesting a right lower lobe infiltrate or atelectasis, patient afebrile leukocytosis - Duoneb 4 times daily, when necessary bronchodilators - symbicort transitioned to performist and pulmicort -IV steroids reinitiated by pulmonary - Doxycycline - Pulmonary hygiene with incentive spirometry Hypotension * Multifactorial now resolved * Hypovolemic shock ( overdiuresis with worsening BUN and creatinine) superimposed on cardiogenic shock (severe cardiomyopathy) Newly discovered systolic cardiomyopathy, decompensated on arrival, EF <20% - D/W cardio stop verapamil and increase metoprolol to 100mg BID - ? need for ischemic eval and timing - no candidate for ACEI at this time due to STANLEY and hyperkalemia yesterday - stric I and O - Daily weights STANLEY * Now resolved - suspect due to forced diureis versus cardiorenal - hold lasix, no IVF with low EF and increased work of breathing - Avoid additional nephrotoxic agents, appreciated neurology recommendations -Creatinine trending trending down from 2 to 1.2 , now with improved urine output A. fib with RVR with elevated troponin - Troponin likely elevated secondary to demand ischemia -Serial troponins flat - metoprolol and amiodarone - cardio recs appreciated - Continue Xarelto - tele EtOH abuse -CIWA protocol -Thiamine and folic acid Chronic anemia currently at baseline * Hemoglobin down to 6.7, receiving 1 unit of packed RBCs -Patient denied evidence of GI bleeding -Serial CBC as outpatient Hypertension, controlled -Continue home medications Dyslipidemia -Continue statin DVT prophylaxis: Xarelto Disposition * Patient clinically looks better today we'll continue to monitor Discussed with: Patient, nursing, cardiology Anticipated discharge: [address]: Home with home health A total of 35 minutes was spent on the care of this complex patient more than 50 % of the time was spent in counseling and care coordination.
--- NOTE | 2017-10-18 10:11 | P.PN ---
Subjective Patient is seen in follow-up for acute kidney injury. Renal function is improving with creatinine around 1.2 today. He is off all vasopressors. Currently resting in bed. He is nonoliguric. Hemoglobin was 6.8 this morning and is receiving 1 unit of blood transmission. Denies any melena or hematochezia. No vomiting or diarrhea. Vital signs are stable. General: The patient appeared well nourished and normally developed. HEENT: Head exam is unremarkable. Neck is without jugular venous distension. LUNGS: Lungs are clear to auscultation and percussion. Breath sounds decreased. HEART: Rate and Rhythm are regular. First and second heart sounds normal. No murmurs, rubs or gallops. ABDOMEN: Abdominal exam reveals normal bowel sounds. Non-tender and non- distended. No evidence of peritonitis. EXTREMITITES: No clubbing, cyanosis, or edema. Objective - Vital Signs Vital signs: Vital Signs Temp 97.5 F L 10/18/17 08:19 Pulse 79 10/18/17 10:00 Resp 19 10/18/17 10:00 BP 102/67 10/18/17 10:00 Pulse Ox 95 10/18/17 10:00 Intake & Output 10/17/17 10/18/17 10/18/17 18:59 06:59 18:59 Intake Total 1388.383 272.242 623.275 Output Total 1255 850 335 Balance 133.383 -577.758 288.275 Weight 77 kg 76.4 kg Intake: IV 385 220 117.5 0.9 235 220 80 Magnesium Sulfate-D5w Pmx 100 1 gm In Dextrose/Water 1 100ml.bag @ 100 mls/hr IVPB Q1H [facility] Rx#: [id number] Piperacillin-Tazobactam 3 50 37.5 .375 gm In Dextrose/Water 1 50ml.bag @ 12.5 mls/hr IVPB Q8HR [facility] Rx#: [id number] Intake, IV Titration 403.383 52.242 145.775 Amount Amiodarone 450 mg In 197.758 52.242 145.775 Dextrose 5% in Water 250 ml @ 1 MG/MIN 33.33 mls/ hr IV .Q7H31M [facility] Rx#: [id number] Magnesium Sulfate-D5w Pmx 200 1 gm In Dextrose/Water 1 100ml.bag @ 100 mls/hr IVPB Q1H [facility] Rx#: [id number] Norepinephrine 4 mg In 5.625 Sodium Chloride 0.9% 250 ml @ Titrate IV .Q0M [facility] Rx#:[id number] Oral 600 360 Blood Product 0 Rc As-1 Unit 0 [id number] Output: Urine 1255 850 335 Other: Voiding Method Indwelling Catheter Indwelling Catheter - Labs CBC & Chem 7: 10/18/17 05:00 10/18/17 05:00 Labs: Abnormal Lab Results - Last 24 Hours (Table) 10/17/17 10/18/17 10/18/17 Range/Units 04:55 05:00 05:00 RBC 2.60 L (4.30-5.90) m/uL Hgb 6.8 L* (13.0-17.5) gm/dL Hct 23.1 L (39.0-53.0) % MCHC 29.5 L (31.0-37.0) g/dL RDW 18.4 H (11.5-15.5) % Lymphocytes # 0.2 L (1.0-4.8) k/uL Sodium 133 L (137-145) mmol/L Chloride 96 L (98-107) mmol/L BUN 68 H (9-20) mg/dL Glucose 154 H (74-99) mg/dL Calcium 7.8 L (8.4-10.2) mg/dL Iron 8 L (65-175) ug/dL Iron Saturation 2.10 L (15.00-50.00) Crossmatch 10/18/17 Range/Units 05:35 RBC (4.30-5.90) m/uL Hgb (13.0-17.5) gm/dL Hct (39.0-53.0) % MCHC (31.0-37.0) g/dL RDW (11.5-15.5) % Lymphocytes # (1.0-4.8) k/uL Sodium (137-145) mmol/L Chloride (98-107) mmol/L BUN (9-20) mg/dL Glucose (74-99) mg/dL Calcium (8.4-10.2) mg/dL Iron (65-175) ug/dL Iron Saturation (15.00-50.00) Crossmatch See Detail Microbiology - Last 24 Hours (Table) 10/17/17 19:15 Gram Stain - Preliminary Sputum Sputum Culture - Preliminary 10/16/17 21:05 Urine Culture - Final Urine,Catheterized 10/16/17 23:50 Blood Culture - Preliminary Blood No Growth after 24 hours 10/16/17 17:20 Blood Culture - Preliminary Blood No Growth after 24 hours Assessment and Plan Plan: Assessment: 1. Nonoliguric acute kidney injury secondary to ATN secondary to hemodynamic instability and hypotension. Creatinine was 2.5 on admission and is down to 1.2 today. 2. Atrial fibrillation with RVR. Now rate controlled. 3. Systolic CHF with ejection fraction of less than 20%. 4. Acute blood loss anemia with hemoglobin of 6.8 today. Currently receiving 1 unit of blood transmission. Severe iron deficiency noted. 5. Hypokalemia from diuresis. 6. Hypotension from hemodynamic instability. Orders a level normal. No signs of sepsis. Off vasopressors at this time. Plan: Lasix 40 mg IV once after blood transfusion completed. Potassium replaced. 20 mg once today. Encouraged oral intake. Ferrlecit 125 mg IV daily for 3 days. First dose today. Avoid nephrotoxic agents and hypotensive episodes.
[2017-10-18] MEDS ORDERED: LACTULOSE 20 GM/30 ML CUP PO ONE (10:16)
[2017-10-18] MEDS: SODIUM FERRIC GLUCONAT-SUCROSE 125 MG in SODIUM CHLORIDE 0.9% 100 ML IVPB SCH (11:13)
[2017-10-18] MEDS: AMIODARONE 200 MG TAB PO SCH (11:13)
[2017-10-18] MEDS: FOLIC ACID 1 MG TAB PO SCH (11:14)
[2017-10-18] MEDS: THIAMINE 100 MG TAB PO SCH ×2 (11:14→16:58)
--- NOTE | 2017-10-18 11:32 | PN ---
PROGRESS NOTE Juan Carlos Hills is a 72-year-old male patient who has alcoholic cardiomyopathy, severe LV dysfunction, and had atrial fibrillation with RVR with hypotension. His blood pressure is better now. I treated him with IV amiodarone yesterday, and today I am starting him on oral amiodarone. He is afebrile. Pulse rate is still about 100 to 110 beats per minute. Blood pressure 108/65 mmHg. Breath sounds are reduced bilaterally with bilateral rhonchorous breath sounds with crackles. He has COPD exacerbation. Abdomen is soft, nontender. Heart sounds are irregular and tachycardic. Extremities are warm. IMPRESSION: 1. Atrial fibrillation with RVR. 2. Cardiomyopathy. 3. Chronic obstructive pulmonary disease exacerbation. SUGGEST: Agree with metoprolol 50 mg 3 times a day. Continue anticoagulation with Xarelto. Continue Pravachol. Start him on amiodarone 400 mg p.o. daily for rate control. His pressors should be tapered off. He needs to stop drinking alcohol. This gentleman has been completely noncompliant with his cardiac visits and his medical care. He states he has stopped drinking for about a month. He has had recurrent admissions in the past. MMODL / IJN: [id number] /
--- NOTE | 2017-10-18 11:49 | P.PN ---
Subjective Progress Note Date: 10/18/17 72-year-old male patient, known history of advanced COPD with chronic hypoxic respiratory failure in addition to history of chronic alcoholism, history of fall with pulmonary contusion, traumatic rib fracture for which the patient was hospitalized back in 2017, history of chronic atrial fibrillation, CHF, hypertension, CVA involving the temporal lobe, hyperlipidemia, chronic anemia and cervical and lumbar stenosis. The patient continues to drink alcohol excessively around pint on a daily basis. The patient presented to the hospital because of worsening shortness of breath a few days duration. He was using his DuoNeb nebulized treatments without any improvement. He was also using the Combivent. The patient is oxygen dependent and utilize oxygen at 3 L at all times. His sputum production was essentially whitish and there was no hemoptysis or pleurisy. In the hospital, the patient was further found to be nature fibrillation with rapid ventricular response. The patient was thought to be CHF knowing that his proBNP level was quite elevated at 12,200. Troponins were also mildly elevated at 0.04 and 0.03 respectively. The patient was started on diuretics knowing that the chest x-ray showed cardiomegaly and echocardiac Dimas showed improvement in the left atrial ejection fraction with an EF of around 20%. The patient diuresed adequately and the patient became prerenal and the creatinine is up to 1.7. Currently is diuretics is on hold. Meanwhile COPD exacerbations being still treated with a combination of bronchodilators and steroids. The patient is currently on Pulmicort Respules, DuoNeb neb last treatment [id number], prednisone burst taper starting with 40 mg and the patient is also on doxycycline as an empiric antibiotic coverage. No signs of any delirium tremens. His resting comfortably in bed. He remains in atrial fibrillation. Is on Xarelto for anticoagulation. He is still smoking. 10/16/2017 patient seen in follow-up on selective care unit. He was noted to be more lethargic this morning, and he was hypotensive with SBP in the 80s, and DBP in the 50s. Remains afebrile, remains in A. fib, on his heart rate is better controlled, ranging from 80s to 110s BPM. Today's lab work was reviewed , and the patient's renal function is worsening, B1 is up to 80/56, and creatinine is up to 2.24 from 1.7 on yesterday's labs. Serum sodium is 135 potassium is 5.2, WBC of 7.7, and hemoglobin of 7.7. His diuretics were placed on hold in view of worsening renal function and hypotension. Patient is receiving an IV fluid bolus of 500 mL of 0.9 normal saline, and we will give the patient additional 500 mL of fluids. Encourage oral fluid intake. At the time of her evaluation patient is awake alert, lung sounds are positive for diffuse wheezing, and rhonchi. Patient productive cough with production of yellow sputum. Patient was initially placed on prednisone, we will stop the patient increase it to Solu-Medrol 60 mg every 6 hours. Continues on empiric antibiotics doxycycline. No fever no chills. His chest x-ray was reviewed with Dr. Perez and shows left pleural effusion no other acute process identified. On 10/17/2017 the patient is being seen in intensive care unit. Please note the events that occurred yesterday. I will the patient in intensive care unit as the patient was developing hypotension, diminished urine output and diminished level of consciousness. A triple lumen catheter was inserted. The patient was given a total of 2 L of IV bolus. Subsequently he was given a dose of Lasix 60 mg IV push knowing that he was not producing much of urine output. A triple-lumen catheter was inserted and the CVP initially was 24. Over night, the patient's urine output improved and is currently producing more than 50 mL an hour of urine output. Renal function is also improving and creatinine is down to 2.0. Today chest x-ray shows development of a right lower lobe consolidation, probably an area of pneumonia. Noted the patient was receiving doxycycline 40s to be exacerbation treatment/empiric antibiotic coverage. Hemodynamically stable. Pressors have been weaned off and discontinued and the patient is maintaining his own blood pressure. IV fluids TO KVO. The antibiotics will be further broaden. He is afebrile. He has a congested cough and sputum will be sent for Gram stain and culture. No altered mentation. Remains on examination bronchodilators and steroids regarding his COPD exacerbation. As mentioned, is alcoholic and he has a very poor LV function with ejection fraction of 20% consistent with alcoholic cardiomyopathy. The patient also developed some tachycardia regarding his atrial fibrillation. He was started on amiodarone bolus and loading by cardiology. The beta blockers have been discontinued earlier because of his underlying hypotension. In any rate, the metoprolol can be restarted once the blood pressure stabilizes. The patient is receiving amiodarone in addition to Xarelto for long-term anticoagulation regarding his atrial fibrillation. No signs of any delirium tremens. Mental status is more appropriate compared to yesterday. On 10/18/2017 I'm seeing this patient in follow-up in intensive care unit. Awake and alert and following commands and answering questions appropriately. Hemodynamically off pressors. Hemoglobin has dropped and the patient will be receiving a unit of packed RBC. The chest x-ray from today still showing bilateral pleural effusion and right lower lobe consolidation of stepped up that by treatment included IV Zosyn. The patient continues to show improvement in the urine output and renal function and the creatinine is down to 1.2. No fever. No chills. No nausea vomiting or any emesis. No abdominal pain. No chest pain. No signs of any delirium tremors and the patient seems to be more appropriate. He remains nature fibrillation. Slightly tachycardic. He is on amiodarone drip which has not impacted his heart rate control. Beta blockers were restarted yesterday and the patient has been off pressors for more than 24 hours. No other significant events overnight. Objective - Vital Signs Vital signs: Vital Signs Temp 97.7 F 10/18/17 10:24 Pulse 98 10/18/17 11:26 Resp 17 10/18/17 11:00 BP 108/65 10/18/17 11:00 Pulse Ox 100 10/18/17 11:00 Intake & Output 10/17/17 10/18/17 10/18/17 18:59 06:59 18:59 Intake Total 1388.383 443.043 6164.775 Output Total 1255 850 760 Balance 133.383 -577.758 515.775 Weight 77 kg 76.4 kg Intake: IV 385 220 150.0 0.9 235 220 100 Magnesium Sulfate-D5w Pmx 100 1 gm In Dextrose/Water 1 100ml.bag @ 100 mls/hr IVPB Q1H [facility] Rx#: [id number] Piperacillin-Tazobactam 3 50 50.0 .375 gm In Dextrose/Water 1 50ml.bag @ 12.5 mls/hr IVPB Q8HR [facility] Rx#: [id number] Intake, IV Titration 403.383 52.242 145.775 Amount Amiodarone 450 mg In 197.758 52.242 145.775 Dextrose 5% in Water 250 ml @ 1 MG/MIN 33.33 mls/ hr IV .Q7H31M [facility] Rx#: [id number] Magnesium Sulfate-D5w Pmx 200 1 gm In Dextrose/Water 1 100ml.bag @ 100 mls/hr IVPB Q1H [facility] Rx#: [id number] Norepinephrine 4 mg In 5.625 Sodium Chloride 0.9% 250 ml @ Titrate IV .Q0M [facility] Rx#:[id number] Oral 600 360 Blood Product 620 Rc As-1 Unit 310 [id number] Output: Urine 1255 850 760 Other: Voiding Method Indwelling Catheter Indwelling Catheter Indwelling Catheter - Exam Thin frail elderly male patient, mildly short of breath at rest, patient has been wearing a BiPAP mask intermittently. No signs of any tremors or confusion or agitation at this point in time. He is following commands and answering questions appropriately. There was no scleral icterus or corneal arcus. Mucous membranes were moist.Neck was supple and without jugular venous distension, thyromegaly, or carotid bruits. Carotids were easily palpable bilaterally. There was no adenopathy. The patient has a triple lumen catheter inserted in the left subclavian vein. The exit site is clean at this point. Lung sounds are diminished in the lung bases especially in the right lung base and there is diffuse expiratory wheezes throughout the lung his bilaterally along with prolongation of the expiratory phase of breathing Cardiac exam revealed the PMI to be normally situated and sized. The rhythm was irregular and no extrasystoles were noted during several minutes of auscultation. The first and second heart sounds were normal and physiologic splitting of the second heart sound was noted. There were no murmurs, rubs, clicks, or gallops.Abdominal exam revealed normal bowel sounds. The abdomen was soft, non-tender, and without masses, organomegaly, or appreciable enlargement of the abdominal aorta. Extremities show diffuse muscle atrophy. As a cyanosis or clubbing. Pulses are equal and symmetrical bilaterally in 4 extremities. Neurologically, the patient is awake and alert and following commands and answering questions appropriately. Examination of the skin revealed no evidence of significant rashes, suspicious appearing nevi or other concerning lesions. - Labs CBC & Chem 7: 10/18/17 05:00 10/18/17 05:00 Labs: Abnormal Lab Results - Last 24 Hours (Table) 10/17/17 10/18/17 10/18/17 Range/Units 04:55 05:00 05:00 RBC 2.60 L (4.30-5.90) m/uL Hgb 6.8 L* (13.0-17.5) gm/dL Hct 23.1 L (39.0-53.0) % MCHC 29.5 L (31.0-37.0) g/dL RDW 18.4 H (11.5-15.5) % Lymphocytes # 0.2 L (1.0-4.8) k/uL Sodium 133 L (137-145) mmol/L Chloride 96 L (98-107) mmol/L BUN 68 H (9-20) mg/dL Glucose 154 H (74-99) mg/dL Calcium 7.8 L (8.4-10.2) mg/dL Iron 8 L (65-175) ug/dL Iron Saturation 2.10 L (15.00-50.00) Crossmatch 10/18/17 Range/Units 05:35 RBC (4.30-5.90) m/uL Hgb (13.0-17.5) gm/dL Hct (39.0-53.0) % MCHC (31.0-37.0) g/dL RDW (11.5-15.5) % Lymphocytes # (1.0-4.8) k/uL Sodium (137-145) mmol/L Chloride (98-107) mmol/L BUN (9-20) mg/dL Glucose (74-99) mg/dL Calcium (8.4-10.2) mg/dL Iron (65-175) ug/dL Iron Saturation (15.00-50.00) Crossmatch See Detail Microbiology - Last 24 Hours (Table) 10/17/17 19:15 Gram Stain - Preliminary Sputum Sputum Culture - Preliminary 10/16/17 21:05 Urine Culture - Final Urine,Catheterized 10/16/17 23:50 Blood Culture - Preliminary Blood No Growth after 24 hours 10/16/17 17:20 Blood Culture - Preliminary Blood No Growth after 24 hours Assessment and Plan Plan: 1 shortness of breath, secondary to a combination of CHF and COPD. The patient condition has a suspected right lower lobe pneumonia and bilateral pleural effusion. Overall condition is improved. 2 advanced COPD with chronic hypoxic respiratory failure, improving and the patient is currently on oxygen at 2 L/m nasal cannula. 3 CHF with further impairment of the left ejection fraction with an ejection fraction of 20%, possibly an alcoholic cardiomyopathy, along with bilateral pleural effusion and suspected right lower lobe pneumonia 4 acute kidney injury, improving the creatinine is down to 1.2 5 previous history of traumatic right-sided hemothorax requiring chest tube insertion and subsequent removal 6 previous history of chest wall contusion/pulmonary contusion related to a fall 7 alcoholism 8 previous hospitalization for acute alcohol intoxication 9 chronic atrial fibrillation, currently on a combination of amiodarone and metoprolol. Still a bit tachycardic and the patient is also on long-term medical condition with Xarelto. 10 hypertension 11 smoker 12 previous history of CVA involving the left temporal lobe 13 hyperlipidemia 14 cervical/lumbar spondylosis 15 chronic normocytic anemia, with interval drop in hemoglobin down to 6.8 16 small hematoma the site of a triple lumen catheterization at the right subclavian area, no active bleeding and the patient is still on Xarelto. Plan Transfuse a unit of packed RBC. Given a dose of Lasix 40 mg IV push. Continue with metoprolol. Stop the amiodarone drip and it was this patient to amiodarone orally 400 milligrams by mouth daily All the Xarelto for 24 hours. Monitor hemoglobin. Monitor renal function. Continued IV Zosyn. IV fluids to KVO. We will need to stay in the ICU for 24 hours for further monitoring. Meanwhile we'll monitored hemodynamics, monitor the hematologic profile, monitor urine output and renal function, increased mobility. We'll follow.
[2017-10-18 13:28] LABS: Anisocytosis Slight; Basophils % (A) 0 %; Eosinophils % (A) 0 %; HCT 28.8 % (39.0-53.0); Hypochromasia Marked; Lymphocytes # (A) 0.2 k/uL (1.0-4.8); Lymphocytes % (A) 4 %; MCH 27.9 pg (25.0-35.0); MCHC 30.5 g/dL (31.0-37.0); MCV 91.3 fL (80.0-100.0); Mean Platelet Volume 7.6; Monocytes # (A) 0.3 k/uL (0-1.0); Monocytes % (A) 6 %; Neutrophils # (A) 4.8 k/uL (1.3-7.7); Neutrophils % (A) 89 %; Platelet Count 205 k/uL (150-450); Poikilocytosis Slight; RBC 3.15 m/uL (4.30-5.90); RDW 17.7 % (11.5-15.5); WBC 5.4 k/uL (3.8-10.6)
[2017-10-18 13:30] LABS: HGB 8.8 gm/dL (13.0-17.5)
[2017-10-18] MEDS: SODIUM CHLORIDE 0.9% 1,000 ML IV SCH (18:03)
[2017-10-18] MEDS: PRAVASTATIN SODIUM 40 MG TAB PO SCH (21:24)
[2017-10-18] MEDS: TAMSULOSIN 0.4 MG CAP.ER.24H PO SCH (21:25)
[2017-10-18] MEDS ORDERED: BISACODYL 10 MG SUPP RECTAL STA (22:38)
[2017-10-19] MEDS: methylPREDNISolone SOD SUCCI 125 MG/2 ML VIAL IV SCH ×3 (00:50→11:37)
[2017-10-19] MEDS: PIPERACILLIN-TAZOBACTAM 3.375 GM in DEXTROSE/WATER 1 50ML.BAG IVPB SCH ×4 (00:50→23:41)
[2017-10-19] MEDS: IPRATROPIUM-ALBUTEROL 3 ML NEB INHALATION SCH ×6 (04:10→23:32)
[2017-10-19 04:11] LABS: Anisocytosis Slight; Basophils % (A) 0 %; Eosinophils % (A) 0 %; HCT 28.7 % (39.0-53.0); HGB 8.7 gm/dL (13.0-17.5); Hypochromasia Marked; Lymphocytes # (A) 0.3 k/uL (1.0-4.8); Lymphocytes % (A) 4 %; MCHC 30.1 g/dL (31.0-37.0); MCV 89.6 fL (80.0-100.0); Mean Platelet Volume 7.9; Monocytes # (A) 0.3 k/uL (0-1.0); Monocytes % (A) 4 %; Neutrophils # (A) 5.2 k/uL (1.3-7.7); Neutrophils % (A) 90 %; Platelet Count 188 k/uL (150-450); Poikilocytosis Slight; RBC 3.21 m/uL (4.30-5.90); RDW 17.5 % (11.5-15.5); WBC 5.8 k/uL (3.8-10.6)
[2017-10-19 04:27] LABS: Calcium 8.1 mg/dL (8.4-10.2); Magnesium 2.1 mg/dL (1.6-2.3); Potassium 3.6 mmol/L (3.5-5.1)
[2017-10-19] MEDS ORDERED: POTASSIUM CHLORIDE ER 20 MEQ TAB.ER PO SCH (06:00)
--- NOTE | 2017-10-19 07:22 | XR ---
EXAMINATION TYPE: XR chest 1V DATE OF EXAM: 10/19/2017 COMPARISON: 10/18/2017 HISTORY: 72-year-old male follow-up CHF TECHNIQUE: Single frontal view of the chest is obtained. FINDINGS: Left subclavian CVC tip at the mid to lower SVC level. Reverse right total shoulder arthroplasty part ially visualized. Heart remains mildly enlarged. Unchanged mild interstitial prominence and bibasilar opacities. Small right pleural effusion. IMPRESSION: Overall stable exam with cardiomegaly and bibasilar opacities with small right effusion, either seque la of CHF or underlying infiltrates.
[2017-10-19] MEDS: FORMOTEROL FUMARATE 20 MCG/2 ML NEBU INHALATION SCH ×2 (07:26→20:06)
[2017-10-19] MEDS: BUDESONIDE 1 MG/2 ML NEBU INHALATION SCH ×2 (07:26→20:06)
[2017-10-19] MEDS: BENZONATATE 100 MG CAP PO SCH ×3 (08:13→20:46)
[2017-10-19] MEDS: AMIODARONE 200 MG TAB PO SCH (08:13)
[2017-10-19] MEDS: NICOTINE 21MG/24HR PATCH TRANSDERM SCH (08:14)
[2017-10-19] MEDS: FAMOTIDINE 20 MG TAB PO SCH (08:14)
[2017-10-19] MEDS: HYDROcodone/APAP 5-325MG 1 EACH TAB PO PRN ×3 (08:14→23:41)
[2017-10-19] MEDS: METOPROLOL TARTRATE 50 MG TAB PO SCH ×2 (08:14→20:45)
[2017-10-19] MEDS: SODIUM FERRIC GLUCONAT-SUCROSE 125 MG in SODIUM CHLORIDE 0.9% 100 ML IVPB SCH (09:30)
[2017-10-19 09:51] LABS: Anisocytosis Slight; Basophils % (A) 0 %; Eosinophils % (A) 0 %; HCT 27.7 % (39.0-53.0); HGB 8.3 gm/dL (13.0-17.5); Hypochromasia Marked; Lymphocytes # (A) 0.3 k/uL (1.0-4.8); Lymphocytes % (A) 5 %; MCH 27.1 pg (25.0-35.0); MCV 90.1 fL (80.0-100.0); Monocytes # (A) 0.2 k/uL (0-1.0); Monocytes % (A) 5 %; Neutrophils # (A) 4.7 k/uL (1.3-7.7); Neutrophils % (A) 90 %; Platelet Count 208 k/uL (150-450); Poikilocytosis Moderate; RBC 3.08 m/uL (4.30-5.90); RDW 17.6 % (11.5-15.5); WBC 5.3 k/uL (3.8-10.6)
[2017-10-19 10:05] LABS: INR 1.6 (<1.2); Prothrombin Time 15.1 sec (9.0-12.0)
[2017-10-19 10:06] LABS: Partial Thromboplastin Time 29.3 sec (22.0-30.0)
--- NOTE | 2017-10-19 10:47 | P.PN ---
Subjective Patient is seen in follow-up for acute kidney injury. Renal function is improving with creatinine 1.1 today. He is off all vasopressors. Currently resting in bed. He is nonoliguric. Hemoglobin was 6.8 yesterday for which he received blood transfusion - 8.3 today. He did have an episode of dark stool. No vomiting or diarrhea. He is upset and wants to be discharged. Vital signs are stable. General: The patient appeared well nourished and normally developed. HEENT: Head exam is unremarkable. Neck is without jugular venous distension. LUNGS: Lungs are clear to auscultation and percussion. Breath sounds decreased. HEART: Rate and Rhythm are regular. First and second heart sounds normal. No murmurs, rubs or gallops. ABDOMEN: Abdominal exam reveals normal bowel sounds. Non-tender and non- distended. No evidence of peritonitis. EXTREMITITES: No clubbing, cyanosis, or edema. Objective - Vital Signs Vital signs: Vital Signs Temp 98.0 F 10/19/17 08:00 Pulse 89 10/19/17 10:00 Resp 12 10/19/17 10:00 BP 115/76 10/19/17 10:00 Pulse Ox 93 L 10/19/17 10:00 Intake & Output 10/18/17 10/19/17 10/19/17 18:59 06:59 18:59 Intake Total 2153.275 542.5 337.5 Output Total 3010 705 260 Balance -856.725 -162.5 77.5 Weight 71.5 kg Intake: IV 427.5 302.5 217.5 0.9 240 240 80 Piperacillin-Tazobactam 3 87.5 62.5 37.5 .375 gm In Dextrose/Water 1 50ml.bag @ 12.5 mls/hr IVPB Q8HR [facility] Rx#: [id number] Sodium Ferric Gluconat- 100 100 Sucrose 125 mg In Sodium Chloride 0.9% 100 ml @ 100 mls/hr IVPB DAILY [facility] Rx#:[id number] Intake, IV Titration 145.775 Amount Amiodarone 450 mg In 145.775 Dextrose 5% in Water 250 ml @ 1 MG/MIN 33.33 mls/ hr IV .Q7H31M [facility] Rx#: [id number] Oral 960 240 120 Blood Product 620 Rc As-1 Unit 310 [id number] Output: Urine 3010 705 260 Other: Voiding Method Indwelling Catheter Indwelling Catheter Indwelling Catheter # Bowel Movements 1 - Labs CBC & Chem 7: 10/19/17 09:40 10/19/17 04:00 Labs: Abnormal Lab Results - Last 24 Hours (Table) 10/18/17 10/19/17 10/19/17 Range/Units 13:15 04:00 04:00 RBC 3.15 L 3.21 L (4.30-5.90) m/uL Hgb 8.8 L D 8.7 L (13.0-17.5) gm/dL Hct 28.8 L 28.7 L (39.0-53.0) % MCHC 30.5 L 30.1 L (31.0-37.0) g/dL RDW 17.7 H 17.5 H (11.5-15.5) % Lymphocytes # 0.2 L 0.3 L (1.0-4.8) k/uL PT (9.0-12.0) sec INR (<1.2) Sodium 136 L (137-145) mmol/L Chloride 96 L (98-107) mmol/L BUN 59 H (9-20) mg/dL Glucose 139 H (74-99) mg/dL Calcium 8.1 L (8.4-10.2) mg/dL 10/19/17 10/19/17 Range/Units 09:40 09:40 RBC 3.08 L (4.30-5.90) m/uL Hgb 8.3 L (13.0-17.5) gm/dL Hct 27.7 L (39.0-53.0) % MCHC 30.0 L (31.0-37.0) g/dL RDW 17.6 H (11.5-15.5) % Lymphocytes # 0.3 L (1.0-4.8) k/uL PT 15.1 H (9.0-12.0) sec INR 1.6 H (<1.2) Sodium (137-145) mmol/L Chloride (98-107) mmol/L BUN (9-20) mg/dL Glucose (74-99) mg/dL Calcium (8.4-10.2) mg/dL Microbiology - Last 24 Hours (Table) 10/17/17 19:15 Gram Stain - Preliminary Sputum Sputum Culture - Preliminary Gram Neg Bacilli Moraxella(branhamella) catarra 10/16/17 23:50 Blood Culture - Preliminary Blood No Growth after 48 hours 10/16/17 17:20 Blood Culture - Preliminary Blood No Growth after 48 hours Assessment and Plan Plan: Assessment: 1. Nonoliguric acute kidney injury secondary to ATN secondary to hemodynamic instability and hypotension. Creatinine was 2.5 on admission and is down to 1.1 today. 2. Atrial fibrillation with RVR. Now rate controlled. 3. Systolic CHF with ejection fraction of less than 20%. 4. Acute blood loss anemia status post blood transfusion on October 18. Severe iron deficiency noted. GI following. Anticoagulation is held. 5. Hypokalemia from diuresis. 6. Hypotension from hemodynamic instability. Cortisol level normal. No signs of sepsis. Off vasopressors at this time. Plan: Encouraged oral intake. Ferrlecit 125 mg IV daily for 3 days. Second dose today. Avoid nephrotoxic agents and hypotensive episodes. Electrolytes being replaced per protocol. Price catheter to be discontinued today. Monitor for retention.
--- NOTE | 2017-10-19 11:13 | P.PN ---
Subjective Progress Note Date: 10/19/17 Principal diagnosis: Patient is a 72 yo CM with a history of alcohol abuse, A. fib, COPD on chronic oxygen at 3 L nasal cannula who presented to the ER with complaints of shortness of breath. In the ER he underwent an extensive evaluation. He was found to be hypoxic at 84% of his 3 L nasal cannula. His heart rate was elevated at 148. Initial laboratory analysis showed an elevated BUN of 23. Slightly elevated troponin of 0.47 and an elevated BNP of 12,200. Chest x-ray showed cardiomegaly without overt heart failure. He was started on a Cardizem drip, bronchodilators, and Solu-Medrol. Despite this he still had increased work of breathing and he was subsequently admitted to the selective care unit. By the morning after admission his breathing had improved significantly. Cardiology was consulted and he was transitioned from cardizem gtt to oral verapamil. Over the evening on 10/14 his work of breathing increased and he was started on Bipap. His echo cam back with an EF of less than 20% and severe global hypokanesis. Patient reports feeling better this morning, patient appears irate and wants to be discharged as soon as possible. Otherwise reports that his breathing is improved, he is off IV pressors and is currently on oral amiodarone for his A. fib. No acute events overnight appears that his creatinine is back to baseline. Had a positive stool occult overnight Objective - Vital Signs Vital signs: Vital Signs Temp 98.0 F 10/19/17 08:00 Pulse 89 10/19/17 10:00 Resp 12 10/19/17 10:00 BP 115/76 10/19/17 10:00 Pulse Ox 93 L 10/19/17 10:00 Intake & Output 10/18/17 10/19/17 10/19/17 18:59 06:59 18:59 Intake Total 2153.275 542.5 337.5 Output Total 3010 705 260 Balance -856.725 -162.5 77.5 Weight 71.5 kg Intake: IV 427.5 302.5 217.5 0.9 240 240 80 Piperacillin-Tazobactam 3 87.5 62.5 37.5 .375 gm In Dextrose/Water 1 50ml.bag @ 12.5 mls/hr IVPB Q8HR [facility] Rx#: [id number] Sodium Ferric Gluconat- 100 100 Sucrose 125 mg In Sodium Chloride 0.9% 100 ml @ 100 mls/hr IVPB DAILY [facility] Rx#:[id number] Intake, IV Titration 145.775 Amount Amiodarone 450 mg In 145.775 Dextrose 5% in Water 250 ml @ 1 MG/MIN 33.33 mls/ hr IV .Q7H31M [facility] Rx#: [id number] Oral 960 240 120 Blood Product 620 Rc As-1 Unit 310 [id number] Output: Urine 3010 705 260 Other: Voiding Method Indwelling Catheter Indwelling Catheter Indwelling Catheter # Bowel Movements 1 - Exam Constitutional: Moderate respiratory distress, conversant, pleasant Eyes: Anicteric sclerae, moist conjunctiva, no lid-lag, PERRLA ENMT: NC/AT,Oropharynx clear, no erythema, exudates Neck:Supple, FROM, no masses, or JVD, No carotid bruits; No thyromegaly Lungs: Improved aeration expiratory wheezes Clear to percussion, on 2 L nasal cannula Cardiovascular: Irregularly irregular No murmurs, gallops, or rubs no peripheral edema Abdominal: Soft Nontender, nom distended, no guarding, no rebound or rigidity, Normoactive bowel sounds No hepatomegaly, No splenomegaly, No palpable mass No abdominal wall hernia noted Skin: Normal temperature, tone, texture, turgor, No induration No subcutaneous nodules, No rash, lesions, No ulcers Extremities:No digital cyanosis No clubbing, Pedal pulses intact and symmetrical Radial pulses intact and symmetrical Normal gait and station, No calf tenderness Psychiatric: Alert and oriented to person, place and time, Appropriate affect Intact judgement Neuro: Muscles Strength 5/5 in all 4 extremities, Sensation to light touch grossly present throughout, Cranial nerves II-XII grossly intact. No focal sensory deficits - Labs CBC & Chem 7: 10/19/17 09:40 10/19/17 04:00 Labs: Abnormal Lab Results - Last 24 Hours (Table) 10/18/17 10/19/17 10/19/17 Range/Units 13:15 04:00 04:00 RBC 3.15 L 3.21 L (4.30-5.90) m/uL Hgb 8.8 L D 8.7 L (13.0-17.5) gm/dL Hct 28.8 L 28.7 L (39.0-53.0) % MCHC 30.5 L 30.1 L (31.0-37.0) g/dL RDW 17.7 H 17.5 H (11.5-15.5) % Lymphocytes # 0.2 L 0.3 L (1.0-4.8) k/uL PT (9.0-12.0) sec INR (<1.2) Sodium 136 L (137-145) mmol/L Chloride 96 L (98-107) mmol/L BUN 59 H (9-20) mg/dL Glucose 139 H (74-99) mg/dL Calcium 8.1 L (8.4-10.2) mg/dL 10/19/17 10/19/17 Range/Units 09:40 09:40 RBC 3.08 L (4.30-5.90) m/uL Hgb 8.3 L (13.0-17.5) gm/dL Hct 27.7 L (39.0-53.0) % MCHC 30.0 L (31.0-37.0) g/dL RDW 17.6 H (11.5-15.5) % Lymphocytes # 0.3 L (1.0-4.8) k/uL PT 15.1 H (9.0-12.0) sec INR 1.6 H (<1.2) Sodium (137-145) mmol/L Chloride (98-107) mmol/L BUN (9-20) mg/dL Glucose (74-99) mg/dL Calcium (8.4-10.2) mg/dL Microbiology - Last 24 Hours (Table) 10/17/17 19:15 Gram Stain - Final Sputum Sputum Culture - Final Enterobacter cloacae Moraxella(branhamella) catarra 10/16/17 23:50 Blood Culture - Preliminary Blood No Growth after 48 hours 10/16/17 17:20 Blood Culture - Preliminary Blood No Growth after 48 hours Assessment and Plan Plan: acute on chronic hypoxic respiratory failure secondary to Acute exacerbation of COPD superimposed on severe cardiomyopathy * Chest x-ray suggesting a right lower lobe infiltrate or atelectasis, patient afebrile leukocytosis - Duoneb 4 times daily, when necessary bronchodilators - symbicort transitioned to performist and pulmicort -To likely be transitioned to oral steroids today - Doxycycline - Pulmonary hygiene with incentive spirometry Hypotension * Multifactorial now resolved * Hypovolemic shock ( overdiuresis with worsening BUN and creatinine) superimposed on cardiogenic shock (severe cardiomyopathy) Newly discovered systolic cardiomyopathy, decompensated on arrival, EF <20% - D/W cardio stop verapamil and increase metoprolol to 100mg BID - ? need for ischemic eval and timing - no candidate for ACEI at this time due to STANLEY and hyperkalemia yesterday - stric I and O - Daily weights STANLEY * Now resolved - suspect due to forced diureis versus cardiorenal - hold lasix, no IVF with low EF and increased work of breathing - Avoid additional nephrotoxic agents, appreciated neurology recommendations -Creatinine trending trending down from 2 to 1.2 , now with improved urine output agree with discontinuing Price A. fib with RVR with elevated troponin - Troponin likely elevated secondary to demand ischemia -Serial troponins flat - metoprolol and amiodarone - cardio recs appreciated - Continue Xarelto - tele EtOH abuse -[facility] protocol -Thiamine and folic acid Chronic anemia currently at baseline * Hemoglobin up to 8.3 post 1 unit transfusion, * Hemoccult positive, and GI consult * Continue Ferrlecit -Serial CBC as outpatient Hypertension, controlled -Continue home medications Dyslipidemia -Continue statin DVT prophylaxis: Xarelto Disposition * Patient clinically looks better today we'll continue to monitor Discussed with: Patient, nursing, cardiology Anticipated discharge: [address]: Home with home health A total of 35 minutes was spent on the care of this complex patient more than 50 % of the time was spent in counseling and care coordination.
[2017-10-19] MEDS: THIAMINE 100 MG TAB PO SCH ×2 (11:37→16:05)
[2017-10-19] MEDS: FOLIC ACID 1 MG TAB PO SCH (11:37)
--- NOTE | 2017-10-19 14:02 | P.PN ---
Subjective Progress Note Date: 10/19/17 72-year-old male patient, known history of advanced COPD with chronic hypoxic respiratory failure in addition to history of chronic alcoholism, history of fall with pulmonary contusion, traumatic rib fracture for which the patient was hospitalized back in 2017, history of chronic atrial fibrillation, CHF, hypertension, CVA involving the temporal lobe, hyperlipidemia, chronic anemia and cervical and lumbar stenosis. The patient continues to drink alcohol excessively around pint on a daily basis. The patient presented to the hospital because of worsening shortness of breath a few days duration. He was using his DuoNeb nebulized treatments without any improvement. He was also using the Combivent. The patient is oxygen dependent and utilize oxygen at 3 L at all times. His sputum production was essentially whitish and there was no hemoptysis or pleurisy. In the hospital, the patient was further found to be nature fibrillation with rapid ventricular response. The patient was thought to be CHF knowing that his proBNP level was quite elevated at 12,200. Troponins were also mildly elevated at 0.04 and 0.03 respectively. The patient was started on diuretics knowing that the chest x-ray showed cardiomegaly and echocardiac Dimas showed improvement in the left atrial ejection fraction with an EF of around 20%. The patient diuresed adequately and the patient became prerenal and the creatinine is up to 1.7. Currently is diuretics is on hold. Meanwhile COPD exacerbations being still treated with a combination of bronchodilators and steroids. The patient is currently on Pulmicort Respules, DuoNeb neb last treatment [id number], prednisone burst taper starting with 40 mg and the patient is also on doxycycline as an empiric antibiotic coverage. No signs of any delirium tremens. His resting comfortably in bed. He remains in atrial fibrillation. Is on Xarelto for anticoagulation. He is still smoking. 10/16/2017 patient seen in follow-up on selective care unit. He was noted to be more lethargic this morning, and he was hypotensive with SBP in the 80s, and DBP in the 50s. Remains afebrile, remains in A. fib, on his heart rate is better controlled, ranging from 80s to 110s BPM. Today's lab work was reviewed , and the patient's renal function is worsening, B1 is up to 80/56, and creatinine is up to 2.24 from 1.7 on yesterday's labs. Serum sodium is 135 potassium is 5.2, WBC of 7.7, and hemoglobin of 7.7. His diuretics were placed on hold in view of worsening renal function and hypotension. Patient is receiving an IV fluid bolus of 500 mL of 0.9 normal saline, and we will give the patient additional 500 mL of fluids. Encourage oral fluid intake. At the time of her evaluation patient is awake alert, lung sounds are positive for diffuse wheezing, and rhonchi. Patient productive cough with production of yellow sputum. Patient was initially placed on prednisone, we will stop the patient increase it to Solu-Medrol 60 mg every 6 hours. Continues on empiric antibiotics doxycycline. No fever no chills. His chest x-ray was reviewed with Dr. Perez and shows left pleural effusion no other acute process identified. On 10/17/2017 the patient is being seen in intensive care unit. Please note the events that occurred yesterday. I will the patient in intensive care unit as the patient was developing hypotension, diminished urine output and diminished level of consciousness. A triple lumen catheter was inserted. The patient was given a total of 2 L of IV bolus. Subsequently he was given a dose of Lasix 60 mg IV push knowing that he was not producing much of urine output. A triple-lumen catheter was inserted and the CVP initially was 24. Over night, the patient's urine output improved and is currently producing more than 50 mL an hour of urine output. Renal function is also improving and creatinine is down to 2.0. Today chest x-ray shows development of a right lower lobe consolidation, probably an area of pneumonia. Noted the patient was receiving doxycycline 40s to be exacerbation treatment/empiric antibiotic coverage. Hemodynamically stable. Pressors have been weaned off and discontinued and the patient is maintaining his own blood pressure. IV fluids TO KVO. The antibiotics will be further broaden. He is afebrile. He has a congested cough and sputum will be sent for Gram stain and culture. No altered mentation. Remains on examination bronchodilators and steroids regarding his COPD exacerbation. As mentioned, is alcoholic and he has a very poor LV function with ejection fraction of 20% consistent with alcoholic cardiomyopathy. The patient also developed some tachycardia regarding his atrial fibrillation. He was started on amiodarone bolus and loading by cardiology. The beta blockers have been discontinued earlier because of his underlying hypotension. In any rate, the metoprolol can be restarted once the blood pressure stabilizes. The patient is receiving amiodarone in addition to Xarelto for long-term anticoagulation regarding his atrial fibrillation. No signs of any delirium tremens. Mental status is more appropriate compared to yesterday. On 10/18/2017 I'm seeing this patient in follow-up in intensive care unit. Awake and alert and following commands and answering questions appropriately. Hemodynamically off pressors. Hemoglobin has dropped and the patient will be receiving a unit of packed RBC. The chest x-ray from today still showing bilateral pleural effusion and right lower lobe consolidation of stepped up that by treatment included IV Zosyn. The patient continues to show improvement in the urine output and renal function and the creatinine is down to 1.2. No fever. No chills. No nausea vomiting or any emesis. No abdominal pain. No chest pain. No signs of any delirium tremors and the patient seems to be more appropriate. He remains nature fibrillation. Slightly tachycardic. He is on amiodarone drip which has not impacted his heart rate control. Beta blockers were restarted yesterday and the patient has been off pressors for more than 24 hours. No other significant events overnight. On 10/19/2017, patient is calm and comfortable resting comfortably in bed. Hemodynamically stable. Renal function improved and normalized. The patient is on on any pressors for blood pressure control. Less tachycardic compared to yesterday. Overnight, the patient had bloody bowel movement that was burgundy in color. The patient total of 2 episodes. Note that he had dropped his hemoglobin the day prior his hemoglobin dropped down to 6.8 and the patient received a unit of packed RBC. Since then, the hemoglobin has been stable. Apparently his last colonoscopy was done within a year and a GI consultation was requested. No nausea. No emesis. No abdominal pain or distention. No chest pain. No altered mentation. He is on a combination of amiodarone and metoprolol for rate control. He is also on IV Solu-Medrol. He is on no pressors. His chest x-ray still showing a right lower lobe consolidation/to patient on IV Zosyn and sputum cultures showing gram-negative bacillus and the final cultures and sensitivities are still pending. No signs of any delirium tremens for now. Objective - Vital Signs Vital signs: Vital Signs Temp 98.0 F 10/19/17 08:00 Pulse 100 10/19/17 11:23 Resp 13 10/19/17 11:00 BP 117/86 10/19/17 11:00 Pulse Ox 99 10/19/17 11:00 Intake & Output 10/18/17 10/19/17 10/19/17 18:59 06:59 18:59 Intake Total 2153.275 542.5 370.0 Output Total 3010 705 360 Balance -856.725 -162.5 10.0 Weight 71.5 kg Intake: IV 427.5 302.5 250.0 0.9 240 240 100 Piperacillin-Tazobactam 3 87.5 62.5 50.0 .375 gm In Dextrose/Water 1 50ml.bag @ 12.5 mls/hr IVPB Q8HR [facility] Rx#: [id number] Sodium Ferric Gluconat- 100 100 Sucrose 125 mg In Sodium Chloride 0.9% 100 ml @ 100 mls/hr IVPB DAILY [facility] Rx#:[id number] Intake, IV Titration 145.775 Amount Amiodarone 450 mg In 145.775 Dextrose 5% in Water 250 ml @ 1 MG/MIN 33.33 mls/ hr IV .[id number] [facility] Rx#: [id number] Oral 960 240 120 Blood Product 620 Rc As-1 Unit 310 [id number] Output: Urine 3010 705 360 Other: Voiding Method Indwelling Catheter Indwelling Catheter Indwelling Catheter # Bowel Movements 1 - Exam Thin frail elderly male patient, mildly short of breath at rest, patient has been wearing a BiPAP mask intermittently. No signs of any tremors or confusion or agitation at this point in time. He is following commands and answering questions appropriately. There was no scleral icterus or corneal arcus. Mucous membranes were moist.Neck was supple and without jugular venous distension, thyromegaly, or carotid bruits. Carotids were easily palpable bilaterally. There was no adenopathy. The patient has a triple lumen catheter inserted in the left subclavian vein. The exit site is clean at this point. Lung sounds are diminished in the lung bases especially in the right lung base and there is diffuse expiratory wheezes throughout the lung his bilaterally along with prolongation of the expiratory phase of breathing Cardiac exam revealed the PMI to be normally situated and sized. The rhythm was irregular and no extrasystoles were noted during several minutes of auscultation. The first and second heart sounds were normal and physiologic splitting of the second heart sound was noted. There were no murmurs, rubs, clicks, or gallops.Abdominal exam revealed normal bowel sounds. The abdomen was soft, non-tender, and without masses, organomegaly, or appreciable enlargement of the abdominal aorta. Extremities show diffuse muscle atrophy. As a cyanosis or clubbing. Pulses are equal and symmetrical bilaterally in 4 extremities. Neurologically, the patient is awake and alert and following commands and answering questions appropriately. Examination of the skin revealed no evidence of significant rashes, suspicious appearing nevi or other concerning lesions. - Labs CBC & Chem 7: 10/19/17 09:40 10/19/17 04:00 Labs: Abnormal Lab Results - Last 24 Hours (Table) 10/19/17 10/19/17 10/19/17 Range/Units 04:00 04:00 09:40 RBC 3.21 L 3.08 L (4.30-5.90) m/uL Hgb 8.7 L 8.3 L (13.0-17.5) gm/dL Hct 28.7 L 27.7 L (39.0-53.0) % MCHC 30.1 L 30.0 L (31.0-37.0) g/dL RDW 17.5 H 17.6 H (11.5-15.5) % Lymphocytes # 0.3 L 0.3 L (1.0-4.8) k/uL PT (9.0-12.0) sec INR (<1.2) Sodium 136 L (137-145) mmol/L Chloride 96 L (98-107) mmol/L BUN 59 H (9-20) mg/dL Glucose 139 H (74-99) mg/dL Calcium 8.1 L (8.4-10.2) mg/dL 10/19/17 Range/Units 09:40 RBC (4.30-5.90) m/uL Hgb (13.0-17.5) gm/dL Hct (39.0-53.0) % MCHC (31.0-37.0) g/dL RDW (11.5-15.5) % Lymphocytes # (1.0-4.8) k/uL PT 15.1 H (9.0-12.0) sec INR 1.6 H (<1.2) Sodium (137-145) mmol/L Chloride (98-107) mmol/L BUN (9-20) mg/dL Glucose (74-99) mg/dL Calcium (8.4-10.2) mg/dL Microbiology - Last 24 Hours (Table) 10/17/17 19:15 Gram Stain - Final Sputum Sputum Culture - Final Enterobacter cloacae Moraxella(branhamella) catarra 10/16/17 23:50 Blood Culture - Preliminary Blood No Growth after 48 hours 10/16/17 17:20 Blood Culture - Preliminary Blood No Growth after 48 hours Assessment and Plan Plan: 1 shortness of breath, secondary to a combination of CHF and COPD. The patient condition has a suspected right lower lobe pneumonia and bilateral pleural effusion. Overall condition is improved. 2 advanced COPD with chronic hypoxic respiratory failure, improving and the patient is currently on oxygen at 2 L/m nasal cannula. 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 The patient sputum Gram stain and cultures showing gram-negative bacillus. The patient remains on IV Zosyn. Chest x-ray from today shows a stable consolidation of the right lung base. 4 acute kidney injury, improving the creatinine is down to 1.1 5 previous history of traumatic right-sided hemothorax requiring chest tube insertion and subsequent removal 6 previous history of chest wall contusion/pulmonary contusion related to a fall 7 alcoholism 8 previous hospitalization for acute alcohol intoxication 9 chronic atrial fibrillation, currently on a combination of amiodarone and metoprolol. Still a bit tachycardic and the patient is also on long-term medical condition with Xarelto. 10 hypertension 11 smoker 12 previous history of CVA involving the left temporal lobe 13 hyperlipidemia 14 cervical/lumbar spondylosis 15 chronic normocytic anemia, with interval drop in hemoglobin down to 6.8 16 small hematoma the site of a triple lumen catheterization at the right subclavian area, no active bleeding and the patient is still on Xarelto. 17 new onset GI bleed, probably of a lower GI source, hematoma dropped down to 6.8 and the patient got transfused with a unit of packed RBC and since then the hemoglobin is stable at 8.3. The patient is currently off Xarelto. Plan Monitor GI bleed. Stop the Xarelto. Repeat coagulation profile. Monitor hemoglobin and transfuse if less than 7. Continue the amiodarone and metoprolol for rate control. Taper the Solu Medrol to 40 mg every 12 hours. Watch for any signs of delirium tremens. Monitor hemodynamics knowing that the patient has a ejection fraction of 20%. Check the results of the sputum Gram stain and culture and keep the patient on IV Zosyn and the patient isn't to have improvement in the right lower lobe pneumonia. We'll give the patient ICU for 24 hours. GI consultation was also placed.
--- NOTE | 2017-10-19 14:31 | PN ---
PROGRESS NOTE This is a 72-year-old male patient who has cardiomyopathy and atrial fibrillation. His blood pressure is better now. He is off pressors. He has COPD exacerbation and cardiomyopathy and acute on chronic congestive heart failure. He is still receiving IV antibiotics. He is on amiodarone 400 mg p.o. daily now. He is on Lopressor 50 mg 3 times a day. His blood pressure is 178/86 mmHg, pulse rate is in the 100s. Breath sounds are reduced bilaterally with bilateral rhonchi. Heart sounds S1, S2 are irregular. Abdomen is soft. Extremities are warm. He is sitting up in a chair. IMPRESSION: 1. Atrial fibrillation with RVR. 2. Cardiomyopathy with systolic dysfunction. 3. Acute on chronic congestive heart failure with systolic dysfunction. 4. Persistent atrial fibrillation. 5. Noncompliance to medical treatment and medical care in the past. SUGGEST: Increase metoprolol to 100 mg b.i.d. and gradually maximize beta blockers as tolerated. MMODL / IJN: [id number] /
[2017-10-19 17:05] LABS: Anisocytosis Slight; Basophils % (A) 0 %; Eosinophils % (A) 0 %; HGB 8.5 gm/dL (13.0-17.5); Hypochromasia Marked; Lymphocytes # (A) 0.3 k/uL (1.0-4.8); Lymphocytes % (A) 5 %; MCH 27.4 pg (25.0-35.0); MCHC 30.2 g/dL (31.0-37.0); MCV 90.7 fL (80.0-100.0); Mean Platelet Volume 7.5; Monocytes # (A) 0.4 k/uL (0-1.0); Monocytes % (A) 6 %; Neutrophils # (A) 5.4 k/uL (1.3-7.7); Neutrophils % (A) 88 %; Platelet Count 205 k/uL (150-450); Poikilocytosis Slight; RBC 3.08 m/uL (4.30-5.90); RDW 17.6 % (11.5-15.5); WBC 6.2 k/uL (3.8-10.6)
[2017-10-19] MEDS: SODIUM CHLORIDE 0.9% 1,000 ML IV SCH (18:43)
[2017-10-19] MEDS: TAMSULOSIN 0.4 MG CAP.ER.24H PO SCH (20:45)
[2017-10-19] MEDS: PRAVASTATIN SODIUM 40 MG TAB PO SCH (20:45)
[2017-10-19] MEDS: methylPREDNISolone SOD SUCCI 40 MG/ML 1 ML VIAL IV SCH (20:46)
[2017-10-20] MEDS: IPRATROPIUM-ALBUTEROL 3 ML NEB INHALATION SCH ×6 (03:20→23:18)
[2017-10-20] MEDS: RIVAROXABAN 20 MG TAB PO SCH (03:23)
[2017-10-20] MEDS: ASPIRIN 81 MG PO SCH (03:23)
[2017-10-20] MEDS: METOPROLOL TARTRATE 50 MG TAB PO SCH ×4 (03:26→21:54)
[2017-10-20] MEDS: predniSONE 20 MG TAB PO SCH (03:27)
[2017-10-20] MEDS: BUDESONIDE 1 MG/2 ML NEBU INHALATION SCH ×2 (07:35→20:00)
[2017-10-20] MEDS: FORMOTEROL FUMARATE 20 MCG/2 ML NEBU INHALATION SCH ×2 (07:35→20:00)
--- NOTE | 2017-10-20 07:38 | P.CONS ---
History of Present Illness - Reason for Consult Consult date: 10/19/17 Positive occult blood in the stools. - History of Present Illness The patient is a 72-year-old male who was admitted to the hospital with shortness of breath. The patient has multiple medical problems and is being managed in the intensive care unit for COPD/congestive heart failure. Apparently, he had no bowel movements for 5 or 6 days then yesterday he was noted to have bleeding per rectum. His aspirin and Xarelto were held and we are asked to see him for this problem. The patient had colonoscopy with polypectomies in September 2015. He has no upper abdominal complaints, nausea, vomiting or hematemesis. His hemoglobin has remained stable at 8.5. Review of Systems Constitutional: Denies fever, chills, sweats, weight gain, or loss. HEENT: Negative for migraines, blurred vision or loss, earaches, drainage, tinnitus, oral mucosal lesions, dysphagia, or odynophagia. CARDIAC: Negative for chest pain. Has history of atrial fibrillation. RESPIRATORY: Shortness of breath with history of COPD. GI: See HPI for pertinent findings. : Negative for hematuria, urgency, frequency, polyuria, or dysuria. MUSCULOSKELETAL: Negative for muscle aches, swelling, arthritis, and arthralgias. NEUROLOGIC: Negative for stroke or TIA. ENDOCRINE: Negative for thyroid problems. SKIN: Negative for rash or itching. PSYCHIATRIC: Negative history for depression and anxiety 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%, history cervical and lumbar spondylosis, carpal tunnel disease, paroxysmal atrial fibrillation, previous hospitalization for alcohol intoxication and altered mentation and previous history of fall with pulmonary contusion and traumatic right-sided fractures, history of delirium tremens, chronic atrial fibrillation, hypertension, hyperlipidemia, previous bouts of pneumonia, previous hospital physician for acute alcohol intoxication, kidney stones, cataracts, degenerative arthritis History of Any Multi-Drug Resistant Organisms: None Reported Past Surgical History: Back Surgery, Hernia Repair Additional Past Surgical History / Comment(s): right shoulder surgery, bilateral cataract surgery, umbilical hernia surgery, kidney stones removal, hammer toe surgery X3 with subsequent amputation of the second toe on right foot , pain injections through neurology, colonoscopy Past Anesthesia/Blood Transfusion Reactions: No Reported Reaction Past Psychological History: No Psychological Hx Reported Additional Psychological History / Comment(s): Lives with friend, Bekah Arriaga. she lives in the upstairs of his home. Smoking Status: Current every day smoker Past Alcohol Use History: Daily Additional Past Alcohol Use History / Comment(s): Smokes 1 PPD, USUALLY DRINKS "at least" A FIFTH OF VODKA BETWEEN 9PM-MIDNIGHT DAILY Past Drug Use History: None Reported - Past Family History Father Family Medical History: Diabetes Mellitus Mother History Unknown: Yes Additional Family Medical History / Comment(s): 2001 Medications and Allergies Home Medications Medication Instructions Recorded Confirmed Type Albuterol Sulfate [Proair Hfa] 2 puff INHALATION RT-Q6H PRN 09/14/16 10/14/17 History Rivaroxaban [Xarelto] 20 mg PO DAILY 03/28/17 10/14/17 History HYDROcodone/APAP 10-325MG [Coggon 1 tab PO Q6H PRN 04/13/17 10/14/17 History 10-325] Ipratropium Tonica [Atrovent Hfa] 2 puff INHALATION RT-QID PRN 10/14/17 History Ipratropium-Albuterol Nebulize 3 ml INHALATION RT-TID PRN 10/14/17 10/14/17 History [Duoneb 0.5 mg-3 mg/3 ml Soln] Allergies Allergy/AdvReac Type Severity Reaction Status Date / Time cephalexin monohydrate Allergy Rash/Hives Verified 10/13/17 19:58 [From Keflex] Physical Exam Vitals: Vital Signs Temp Pulse Resp BP Pulse Ox 10/19/17 11:23 100 10/19/17 11:13 99 10/19/17 11:00 98 13 117/86 99 10/19/17 10:00 89 12 115/76 93 L 10/19/17 09:00 107 H 12 124/77 96 10/19/17 08:00 98.0 F 96 20 124/79 94 L 10/19/17 07:47 105 H 10/19/17 07:37 103 H 10/19/17 07:36 103 H 10/19/17 07:26 103 H 10/19/17 07:00 116 H 23 133/86 93 L 10/19/17 06:00 102 H 21 118/71 94 L 10/19/17 05:00 101 H 20 125/83 98 10/19/17 04:34 89 10/19/17 04:12 89 10/19/17 04:00 97.9 F 96 25 H 126/82 96 10/19/17 03:00 81 16 126/82 94 L 10/19/17 02:00 82 18 109/81 94 L 10/19/17 01:00 100 20 114/79 98 10/19/17 00:06 101 H 10/19/17 00:00 97.9 F 102 H 18 122/85 97 10/18/17 23:46 91 10/18/17 23:00 108 H 22 125/87 98 10/18/17 22:00 105 H 15 126/87 99 10/18/17 21:00 96 20 121/74 93 L 10/18/17 20:20 103 H 10/18/17 20:15 99 10/18/17 20:02 105 H 97 10/18/17 20:00 97.9 F 101 H 16 120/83 96 10/18/17 19:00 110 H 22 99/65 95 10/18/17 18:00 109 H 20 122/71 98 10/18/17 17:00 107 H 20 119/66 94 L 10/18/17 16:00 109 H 22 109/67 94 L 10/18/17 15:00 99 13 105/66 93 L 10/18/17 14:00 96 22 119/74 98 10/18/17 13:00 107 H 20 114/70 94 L Intake and Output 10/18/17 10/19/17 10/19/17 22:59 06:59 14:59 Intake Total 570.0 210.0 370.0 Output Total 1265 465 360 Balance -695.0 -255.0 10.0 Intake: IV 210.0 210.0 250.0 0.9 160 160 100 Piperacillin-Tazobactam 3 50.0 50.0 50.0 .375 gm In Dextrose/Water 1 50ml.bag @ 12.5 mls/hr IVPB Q8HR [facility] Rx#: [id number] Sodium Ferric Gluconat- 100 Sucrose 125 mg In Sodium Chloride 0.9% 100 ml @ 100 mls/hr IVPB DAILY [facility] Rx#:[id number] Oral 360 120 Output: Urine 1265 465 360 Other: Voiding Method Indwelling Catheter Indwelling Catheter Indwelling Catheter # Bowel Movements 1 Weight 71.5 kg General appearance: The patient is alert, oriented, in no acute distress. HET: Head is normocephalic and atraumatic. Pupils are equal and reactive. Oropharynx is clear without lesions. Neck: Supple without lymphadenopathy. Trachea midline. Heart: S1 S2. Regular rate and rhythm. Lungs: No crackles or wheezes are heard. No dullness to percussion. Abdomen: Soft, nontender, nondistended with bowel sounds. No peritoneal signs. No palpable organomegaly or masses. Perianal area appeared healthy. No masses felt on digital rectal examination and stools felt were soft and normal in color with no evidence of bleeding. Note should be made that the patient was experiencing significant pain during the rectal exam. Extremities: Normal skin color and turgor. No cyanosis, rash, ulceration, clubbing, or edema. Radial and pedal pulses are 2/4 bilaterally. Neurological: No focal deficits. Strength and sensation are grossly intact. Results CBC & Chem 7: 10/19/17 16:45 10/19/17 04:00 Labs: Abnormal Lab Results - Last 24 Hours (Table) 10/18/17 10/19/17 10/19/17 Range/Units 13:15 04:00 04:00 RBC 3.15 L 3.21 L (4.30-5.90) m/uL Hgb 8.8 L D 8.7 L (13.0-17.5) gm/dL Hct 28.8 L 28.7 L (39.0-53.0) % MCHC 30.5 L 30.1 L (31.0-37.0) g/dL RDW 17.7 H 17.5 H (11.5-15.5) % Lymphocytes # 0.2 L 0.3 L (1.0-4.8) k/uL PT (9.0-12.0) sec INR (<1.2) Sodium 136 L (137-145) mmol/L Chloride 96 L (98-107) mmol/L BUN 59 H (9-20) mg/dL Glucose 139 H (74-99) mg/dL Calcium 8.1 L (8.4-10.2) mg/dL 10/19/17 10/19/17 Range/Units 09:40 09:40 RBC 3.08 L (4.30-5.90) m/uL Hgb 8.3 L (13.0-17.5) gm/dL Hct 27.7 L (39.0-53.0) % MCHC 30.0 L (31.0-37.0) g/dL RDW 17.6 H (11.5-15.5) % Lymphocytes # 0.3 L (1.0-4.8) k/uL PT 15.1 H (9.0-12.0) sec INR 1.6 H (<1.2) Sodium (137-145) mmol/L Chloride (98-107) mmol/L BUN (9-20) mg/dL Glucose (74-99) mg/dL Calcium (8.4-10.2) mg/dL Microbiology - Last 24 Hours (Table) 10/17/17 19:15 Gram Stain - Final Sputum Sputum Culture - Final Enterobacter cloacae Moraxella(branhamella) catarra 10/16/17 23:50 Blood Culture - Preliminary Blood No Growth after 48 hours 10/16/17 17:20 Blood Culture - Preliminary Blood No Growth after 48 hours Assessment and Plan Assessment: Rectal bleeding most likely on the basis of perianal disease in the setting of hospitalization and constipation especially in light of his digital rectal examination as noted above. The patient had colonoscopy 2 years ago. Plan: I agree with your current management. Will advance diet and advise stool softeners and local care should his bleeding recur. I did not schedule endoscopies at this time. Will continue to follow with you with interest.
[2017-10-20] MEDS: NICOTINE 21MG/24HR PATCH TRANSDERM SCH (08:32)
[2017-10-20] MEDS: AMIODARONE 200 MG TAB PO SCH (08:35)
[2017-10-20] MEDS: BENZONATATE 100 MG CAP PO SCH ×3 (08:35→21:54)
[2017-10-20] MEDS: FAMOTIDINE 20 MG TAB PO SCH (08:36)
[2017-10-20] MEDS: methylPREDNISolone SOD SUCCI 40 MG/ML 1 ML VIAL IV SCH ×2 (08:36→21:55)
[2017-10-20] MEDS: SODIUM FERRIC GLUCONAT-SUCROSE 125 MG in SODIUM CHLORIDE 0.9% 100 ML IVPB SCH (08:37)
[2017-10-20] MEDS: FOLIC ACID 1 MG TAB PO SCH (08:38)
[2017-10-20] MEDS: THIAMINE 100 MG TAB PO SCH ×2 (08:38→16:07)
[2017-10-20] MEDS: HYDROcodone/APAP 5-325MG 1 EACH TAB PO PRN ×3 (08:48→22:05)
[2017-10-20] MEDS: PIPERACILLIN-TAZOBACTAM 3.375 GM in DEXTROSE/WATER 1 50ML.BAG IVPB SCH ×2 (11:10→16:08)
--- NOTE | 2017-10-20 11:49 | XR ---
EXAMINATION TYPE: XR chest 1V DATE OF EXAM: 10/20/2017 COMPARISON: 10/19/2017 HISTORY: 72-year-old male CHF TECHNIQUE: Single frontal view of the chest is obtained. FINDINGS: Heart upper limits of normal in size. Relative upper lung lucency suggests underlying emphysema. Smal l right pleural effusion shows some improvement in aeration at the right lower lung. Retrocardiac pat tiburcio density remains. Left subclavian CVC tip at the mid SVC level. IMPRESSION: Improvement in the pulmonary vascular congestion. Also, improving aeration at the right base with tra ce residual effusion. Some patchy atelectasis or infiltrate remains at the left base.
[2017-10-20 11:54] LABS: Anion Gap 9 mmol/L; Blood Urea Nitrogen 45 mg/dL (9-20); Carbon Dioxide 32 mmol/L (22-30); Chloride 97 mmol/L (98-107); Glucose 164 mg/dL (74-99); Magnesium 1.9 mg/dL (1.6-2.3); Phosphorus 2.2 mg/dL (2.5-4.5); Potassium 3.9 mmol/L (3.5-5.1); Sodium 138 mmol/L (137-145)
--- NOTE | 2017-10-20 12:16 | P.PN ---
Subjective Progress Note Date: 10/20/17 Principal diagnosis: Dyspnea, multifactorial, related to an acute COPD exacerbation and a component of CHF. 72-year-old male patient, known history of advanced COPD with chronic hypoxic respiratory failure in addition to history of chronic alcoholism, history of fall with pulmonary contusion, traumatic rib fracture for which the patient was hospitalized back in 2017, history of chronic atrial fibrillation, CHF, hypertension, CVA involving the temporal lobe, hyperlipidemia, chronic anemia and cervical and lumbar stenosis. The patient continues to drink alcohol excessively around pint on a daily basis. The patient presented to the hospital because of worsening shortness of breath a few days duration. He was using his DuoNeb nebulized treatments without any improvement. He was also using the Combivent. The patient is oxygen dependent and utilize oxygen at 3 L at all times. His sputum production was essentially whitish and there was no hemoptysis or pleurisy. In the hospital, the patient was further found to be nature fibrillation with rapid ventricular response. The patient was thought to be CHF knowing that his proBNP level was quite elevated at 12,200. Troponins were also mildly elevated at 0.04 and 0.03 respectively. The patient was started on diuretics knowing that the chest x-ray showed cardiomegaly and echocardiac Dimas showed improvement in the left atrial ejection fraction with an EF of around 20%. The patient diuresed adequately and the patient became prerenal and the creatinine is up to 1.7. Currently is diuretics is on hold. Meanwhile COPD exacerbations being still treated with a combination of bronchodilators and steroids. The patient is currently on Pulmicort Respules, DuoNeb neb last treatment [id number], prednisone burst taper starting with 40 mg and the patient is also on doxycycline as an empiric antibiotic coverage. No signs of any delirium tremens. His resting comfortably in bed. He remains in atrial fibrillation. Is on Xarelto for anticoagulation. He is still smoking. 10/16/2017 patient seen in follow-up on selective care unit. He was noted to be more lethargic this morning, and he was hypotensive with SBP in the 80s, and DBP in the 50s. Remains afebrile, remains in A. fib, on his heart rate is better controlled, ranging from 80s to 110s BPM. Today's lab work was reviewed , and the patient's renal function is worsening, B1 is up to 80/56, and creatinine is up to 2.24 from 1.7 on yesterday's labs. Serum sodium is 135 potassium is 5.2, WBC of 7.7, and hemoglobin of 7.7. His diuretics were placed on hold in view of worsening renal function and hypotension. Patient is receiving an IV fluid bolus of 500 mL of 0.9 normal saline, and we will give the patient additional 500 mL of fluids. Encourage oral fluid intake. At the time of her evaluation patient is awake alert, lung sounds are positive for diffuse wheezing, and rhonchi. Patient productive cough with production of yellow sputum. Patient was initially placed on prednisone, we will stop the patient increase it to Solu-Medrol 60 mg every 6 hours. Continues on empiric antibiotics doxycycline. No fever no chills. His chest x-ray was reviewed with Dr. Perez and shows left pleural effusion no other acute process identified. On 10/17/2017 the patient is being seen in intensive care unit. Please note the events that occurred yesterday. I will the patient in intensive care unit as the patient was developing hypotension, diminished urine output and diminished level of consciousness. A triple lumen catheter was inserted. The patient was given a total of 2 L of IV bolus. Subsequently he was given a dose of Lasix 60 mg IV push knowing that he was not producing much of urine output. A triple-lumen catheter was inserted and the CVP initially was 24. Over night, the patient's urine output improved and is currently producing more than 50 mL an hour of urine output. Renal function is also improving and creatinine is down to 2.0. Today chest x-ray shows development of a right lower lobe consolidation, probably an area of pneumonia. Noted the patient was receiving doxycycline 40s to be exacerbation treatment/empiric antibiotic coverage. Hemodynamically stable. Pressors have been weaned off and discontinued and the patient is maintaining his own blood pressure. IV fluids TO KVO. The antibiotics will be further broaden. He is afebrile. He has a congested cough and sputum will be sent for Gram stain and culture. No altered mentation. Remains on examination bronchodilators and steroids regarding his COPD exacerbation. As mentioned, is alcoholic and he has a very poor LV function with ejection fraction of 20% consistent with alcoholic cardiomyopathy. The patient also developed some tachycardia regarding his atrial fibrillation. He was started on amiodarone bolus and loading by cardiology. The beta blockers have been discontinued earlier because of his underlying hypotension. In any rate, the metoprolol can be restarted once the blood pressure stabilizes. The patient is receiving amiodarone in addition to Xarelto for long-term anticoagulation regarding his atrial fibrillation. No signs of any delirium tremens. Mental status is more appropriate compared to yesterday. On 10/18/2017 I'm seeing this patient in follow-up in intensive care unit. Awake and alert and following commands and answering questions appropriately. Hemodynamically off pressors. Hemoglobin has dropped and the patient will be receiving a unit of packed RBC. The chest x-ray from today still showing bilateral pleural effusion and right lower lobe consolidation of stepped up that by treatment included IV Zosyn. The patient continues to show improvement in the urine output and renal function and the creatinine is down to 1.2. No fever. No chills. No nausea vomiting or any emesis. No abdominal pain. No chest pain. No signs of any delirium tremors and the patient seems to be more appropriate. He remains nature fibrillation. Slightly tachycardic. He is on amiodarone drip which has not impacted his heart rate control. Beta blockers were restarted yesterday and the patient has been off pressors for more than 24 hours. No other significant events overnight. On 10/19/2017, patient is calm and comfortable resting comfortably in bed. Hemodynamically stable. Renal function improved and normalized. The patient is on on any pressors for blood pressure control. Less tachycardic compared to yesterday. Overnight, the patient had bloody bowel movement that was burgundy in color. The patient total of 2 episodes. Note that he had dropped his hemoglobin the day prior his hemoglobin dropped down to 6.8 and the patient received a unit of packed RBC. Since then, the hemoglobin has been stable. Apparently his last colonoscopy was done within a year and a GI consultation was requested. No nausea. No emesis. No abdominal pain or distention. No chest pain. No altered mentation. He is on a combination of amiodarone and metoprolol for rate control. He is also on IV Solu-Medrol. He is on no pressors. His chest x-ray still showing a right lower lobe consolidation/to patient on IV Zosyn and sputum cultures showing gram-negative bacillus and the final cultures and sensitivities are still pending. No signs of any delirium tremens for now. On 10/20/2017 patient seen in follow-up. He is resting in bed, no distress, no fever or chills, no chest discomfort, no hemoptysis, no worsening chest congestion or sputum production. Not require BiPAP support last night, remained hemodynamically stable, no new lab work today, today's chest x-ray has been reviewed by Dr. Rojo, and shows improving aeration at the right lung base with trace residual effusion, and some patchy atelectasis at the left base. There has been improvement in the pulmonary vascular congestion. Pulse ox on 2 L per nasal cannula is 98%, she remains in A. fib, and the rate is in the low 100s. Sputum culture showed Enterobacter cloakae and Moraxella catarrhalis. The Enterobacter was found to be susceptible to Zosyn which the patient is currently on, sensitivity on the Moraxella was not done. Patient continues on IV Solu-Medrol 40 mg every 12 hours, and nebulized bronchodilators. He is on Tessalon Perles. He is dyspneic with exertion. No occurrence of lower GI bleeding, patient states he had a bowel movement this morning which was negative for any visible blood, was normal in appearance. He states he had 3 bowel movements yesterday, liver he is not sure if those were positive for any blood in it. Denies any dizziness, denies any lightheadedness , denies any chest pain. Patient's Xarelto remains on hold. he is status post transfusion with 1 unit of PRBC for hemoglobin of 6.4, and today's hemoglobin is 8.5. GI service consultation noted, and the patient will be treated conservatively at this time. Objective - Vital Signs Vital signs: Vital Signs Temp 98.1 F 10/20/17 07:00 Pulse 100 10/20/17 11:15 Resp 18 10/20/17 07:00 BP 114/52 10/20/17 07:00 Pulse Ox 98 10/20/17 07:00 Intake & Output 10/19/17 10/20/17 10/20/17 18:59 06:59 18:59 Intake Total 1000.0 420 680 Output Total 710 275 Balance 290.0 145 680 Intake: IV 400.0 60 0.9 200 60 Piperacillin-Tazobactam 3 100.0 .375 gm In Dextrose/Water 1 50ml.bag @ 12.5 mls/hr IVPB Q8HR [facility] Rx#: [id number] Sodium Ferric Gluconat- 100 Sucrose 125 mg In Sodium Chloride 0.9% 100 ml @ 100 mls/hr IVPB DAILY [facility] Rx#:[id number] Oral 600 360 680 Output: Urine 710 275 Other: Voiding Method Urinal Bedside Commode # Voids 1 # Bowel Movements 1 1 - Exam Thin frail elderly male patient, mildly short of breath at rest, patient has been wearing a BiPAP mask intermittently. No signs of any tremors or confusion or agitation at this point in time. He is following commands and answering questions appropriately. There was no scleral icterus or corneal arcus. Mucous membranes were moist.Neck was supple and without jugular venous distension, thyromegaly, or carotid bruits. Carotids were easily palpable bilaterally. There was no adenopathy. Lung sounds are diminished in the lung bases especially in the right lung base and there is diffuse expiratory wheezes throughout the lung his bilaterally along with prolongation of the expiratory phase of breathing Cardiac exam revealed the PMI to be normally situated and sized. The rhythm was irregular and no extrasystoles were noted during several minutes of auscultation. The first and second heart sounds were normal and physiologic splitting of the second heart sound was noted. There were no murmurs, rubs, clicks, or gallops.Abdominal exam revealed normal bowel sounds. The abdomen was soft, non-tender, and without masses, organomegaly, or appreciable enlargement of the abdominal aorta. Extremities show diffuse muscle atrophy. As a cyanosis or clubbing. Pulses are equal and symmetrical bilaterally in 4 extremities. Neurologically, the patient is awake and alert and following commands and answering questions appropriately. Examination of the skin revealed no evidence of significant rashes, suspicious appearing nevi or other concerning lesions. - Labs CBC & Chem 7: 10/19/17 16:45 10/19/17 04:00 Labs: Abnormal Lab Results - Last 24 Hours (Table) 10/19/17 Range/Units 16:45 RBC 3.08 L (4.30-5.90) m/uL Hgb 8.5 L (13.0-17.5) gm/dL Hct 28.0 L (39.0-53.0) % MCHC 30.2 L (31.0-37.0) g/dL RDW 17.6 H (11.5-15.5) % Lymphocytes # 0.3 L (1.0-4.8) k/uL Microbiology - Last 24 Hours (Table) 10/16/17 23:50 Blood Culture - Preliminary Blood No Growth after 72 hours 10/16/17 17:20 Blood Culture - Preliminary Blood No Growth after 72 hours 10/17/17 19:15 Gram Stain - Final Sputum Sputum Culture - Final Enterobacter cloacae Moraxella(branhamella) catarra Assessment and Plan Plan: Assessment: 1 shortness of breath, secondary to a combination of CHF and COPD. The patient condition has a suspected right lower lobe pneumonia and bilateral pleural effusion. Overall condition is improved. 2 advanced COPD with chronic hypoxic respiratory failure, improving and the patient is currently on oxygen at 2 L/m nasal cannula. 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 The patient sputum Gram stain and cultures showing gram-negative bacillus. The patient remains on IV Zosyn. Chest x-ray from today shows a stable consolidation of the right lung base. 4 acute kidney injury, improving the creatinine is down to 1.1 5 previous history of traumatic right-sided hemothorax requiring chest tube insertion and subsequent removal 6 previous history of chest wall contusion/pulmonary contusion related to a fall 7 alcoholism 8 previous hospitalization for acute alcohol intoxication 9 chronic atrial fibrillation, currently on a combination of amiodarone and metoprolol. Still a bit tachycardic and the patient is also on long-term medical condition with Xarelto. 10 hypertension 11 smoker 12 previous history of CVA involving the left temporal lobe 13 hyperlipidemia 14 cervical/lumbar spondylosis 15 chronic normocytic anemia, with interval drop in hemoglobin down to 6.8 16 small hematoma the site of a triple lumen catheterization at the right subclavian area, no active bleeding and the patient is still on Xarelto. 17 new onset GI bleed, probably of a lower GI source, hematoma dropped down to 6.8 and the patient got transfused with a unit of packed RBC and since then the hemoglobin is stable at 8.3. The patient is currently off Xarelto. Plan Continue current antibiotic coverage, sputum culture showed evidence of Enterobacter Cloacae to Zosyn, sensitivity is on Moraxella was not done. No fever, no chills, no chest pain, patient is still bronchospastic and wheezy. But overall is improving, he is alert and oriented, did not wear BiPAP support last night. No recurrence of lower GI bleeding. Hemoglobin today is 8.5, he is tolerating oral diet. GI service consultation was noted, and the plan is to treat patient conservatively, patient Xarelto remains on hold. Hemodynamically patient remains stable, continue current dose of IV steroids, and nebulized bronchodilators. Increase activity as tolerated. Today's chest x-ray has been reviewed by Dr. Rojo, and showed improvement in the pulmonary vessel congestion and improving aeration at the right lung base. Clinically patient continues to improve. Will continue to follow I performed a history & physical examination of the patient and discussed their management with my nurse practitioner, Carolina Cochran. I reviewed the nurse practitioner's note and agree with the documented findings and plan of care. Lung sounds are positive for diffuse wheezes. The findings and the impression was discussed with the patient. I attest to the documentation by the nurse practitioner. Time with Patient: Less than 30
[2017-10-20 12:17] LABS: Anisocytosis Slight; Basophils % (A) 0 %; Eosinophils % (A) 0 %; HCT 28.7 % (39.0-53.0); HGB 8.7 gm/dL (13.0-17.5); Hypochromasia Marked; Lymphocytes # (A) 0.3 k/uL (1.0-4.8); Lymphocytes % (A) 3 %; MCHC 30.3 g/dL (31.0-37.0); MCV 92.4 fL (80.0-100.0); Mean Platelet Volume 7.4; Monocytes # (A) 0.5 k/uL (0-1.0); Monocytes % (A) 6 %; Neutrophils % (A) 89 %; Platelet Count 207 k/uL (150-450); Poikilocytosis Slight; RBC 3.11 m/uL (4.30-5.90); RDW 17.8 % (11.5-15.5); WBC 7.8 k/uL (3.8-10.6)
--- NOTE | 2017-10-20 13:46 | P.PN ---
Subjective Mr. Hills is seen and examined on medical surgical floor. He has history of chronic persistent atrial fibrillation, cardiomyopathy with systolic dysfunction and COPD. Echocardiogram on this admission reveals severely impaired LV systolic function with EF less than 20%, severely dilated LA, mild aortic stenosis with mean gradient 11.06 mmHg, mild-moderate MR, mild-moderate TR. His heart rates have been uncontrolled since admission despite amiodarone and lopressor. He also was hypotensive requiring pressors in ICU at one point. Xarelto was started and he had bloody stools requiring a blood transfusion. He has been seen by GI and no endoscopies are planned at this time, thought to be related to perianal disease. Currently he is maintained on amiodarone 400 mg daily and lopressor was increased yesterday to 100 mg BID. Blood pressure 114/ 52 heart rate 100-104 this morning. He is seen and examined sitting up in bed in no acute distress. He is rather argumentative and aggressive with nursing staff. He denies symptoms of chest pain, shortness of breath, palpitations, dizziness or nausea. Laboratory data today reveals hemoglobin 8.5, platelets 205, INR 1.6. Objective - Vital Signs Vital signs: Vital Signs Temp 98.1 F 10/20/17 07:00 Pulse 104 H 10/20/17 07:49 Resp 18 10/20/17 07:00 BP 114/52 10/20/17 07:00 Pulse Ox 98 10/20/17 07:00 Intake & Output 10/19/17 10/20/17 10/20/17 18:59 06:59 18:59 Intake Total 1000.0 420 680 Output Total 710 275 Balance 290.0 145 680 Intake: IV 400.0 60 0.9 200 60 Piperacillin-Tazobactam 3 100.0 .375 gm In Dextrose/Water 1 50ml.bag @ 12.5 mls/hr IVPB Q8HR [facility] Rx#: [id number] Sodium Ferric Gluconat- 100 Sucrose 125 mg In Sodium Chloride 0.9% 100 ml @ 100 mls/hr IVPB DAILY [facility] Rx#:[id number] Oral 600 360 680 Output: Urine 710 275 Other: Voiding Method Urinal Bedside Commode # Voids 1 # Bowel Movements 1 1 - Exam GENERAL: Well-appearing, well-nourished and in no acute distress. Frail. NECK: Supple without JVD or thyromegaly. LUNGS: Breath sounds clear to auscultation bilaterally. Respiration equal and unlabored. No wheezes, rales or rhonchi. Diminished bilaterally. HEART: Irregular rate and rhythm with systolic ejection murmur at the base , no rubs or gallops. S1 and S2 heard. EXTREMITIES: Normal range of motion, no edema. No clubbing or cyanosis. Peripheral pulses intact and strong. - Labs CBC & Chem 7: 10/20/17 11:25 10/20/17 11:25 Labs: Abnormal Lab Results - Last 24 Hours (Table) 10/19/17 10/19/17 Range/Units 09:40 16:45 RBC 3.08 L (4.30-5.90) m/uL Hgb 8.5 L (13.0-17.5) gm/dL Hct 28.0 L (39.0-53.0) % MCHC 30.2 L (31.0-37.0) g/dL RDW 17.6 H (11.5-15.5) % Lymphocytes # 0.3 L (1.0-4.8) k/uL PT 15.1 H (9.0-12.0) sec INR 1.6 H (<1.2) Microbiology - Last 24 Hours (Table) 10/16/17 23:50 Blood Culture - Preliminary Blood No Growth after 72 hours 10/16/17 17:20 Blood Culture - Preliminary Blood No Growth after 72 hours 10/17/17 19:15 Gram Stain - Final Sputum Sputum Culture - Final Enterobacter cloacae Moraxella(branhamella) catarra Assessment and Plan Assessment: ASSESSMENT 1. Chronic persistent atrial fibrillation, not tolerating long-term anticoagulation with evidence of GI bleeding on this admission. Ventricular rate controlled this time. 2. Cardiomyopathy with severely impaired LV systolic function, EF less than 20% . New diagnosis this admission, normal EF 03/2017. 3. Acute on chronic systolic heart failure, new this admission. 4. History of hypertension 5. History of chronic alcohol abuse 6. Noncompliance in the past PLAN Adjust lopressor to 75 mg TID for better heart rate control. Will continue to follow. Nurse Practitioner note has been reviewed, I agree with a documented findings and plan of care. Patient was seen and examined.
--- NOTE | 2017-10-20 16:02 | PN ---
PROGRESS NOTE The patient is seen in followup for acute kidney injury. His renal function has improved significantly with creatinine now down to 0.97. The patient was oliguric initially with lactic acidosis and hypotension and hyperkalemia. He is being transferred out of the ICU . PHYSICAL EXAMINATION: Blood pressure was 108/72, heart rate 119 per minute. Patient is afebrile. Examination of the heart S1, S2. Examination of the lungs bilateral breath sounds are heard. Abdomen is soft, nontender. Examination of the lower extremities shows no evidence of edema. PSYCHIC READER exam is grossly intact. LABS: Sodium 138, potassium 3.9, BUN 45, creatinine 0.97, hemoglobin 8.7 g/dL. ASSESSMENT: 1. Acute kidney injury associated with hypoperfusion and recent diuresis, currently improved. 2. Severe cardiomyopathy, fairly stable. 3. Hyperkalemia associated with acute kidney injury, oliguria currently improved. 4. Anemia status post packed RBCs transfusion with severe iron deficiency currently maintained on IV iron. 5. Iron deficiency on IV iron. 6. Hypokalemia secondary to diuresis, currently improved, status post replacement. PLAN: Continue IV iron. Continue off of IV fluids and diuretics for now. MMODL / IJN: [id number] /
--- NOTE | 2017-10-20 18:03 | P.PN ---
Subjective Progress Note Date: 10/20/17 Principal diagnosis: SOB, Atrial fibrillation, CHF Patient stated he is doing well, has a little sob when he ambulates, breathing not back to baseline quite yet. No chest pain. Objective - Vital Signs Vital signs: Vital Signs Temp 98.3 F 10/20/17 14:32 Pulse 100 10/20/17 16:54 Resp 18 10/20/17 14:32 BP 108/72 10/20/17 14:32 Pulse Ox 97 10/20/17 16:42 Intake & Output 10/19/17 10/20/17 10/20/17 18:59 06:59 18:59 Intake Total 1000.0 420 1320 Output Total 710 275 Balance 290.0 145 1320 Intake: IV 400.0 60 0.9 200 60 Piperacillin-Tazobactam 3 100.0 .375 gm In Dextrose/Water 1 50ml.bag @ 12.5 mls/hr IVPB Q8HR [facility] Rx#: [id number] Sodium Ferric Gluconat- 100 Sucrose 125 mg In Sodium Chloride 0.9% 100 ml @ 100 mls/hr IVPB DAILY [facility] Rx#:[id number] Oral 655 350 9107 Output: Urine 710 275 Other: Voiding Method Urinal Bedside Commode # Voids 1 3 # Bowel Movements 1 1 1 - Labs CBC & Chem 7: 10/20/17 11:25 10/20/17 11:25 Labs: Abnormal Lab Results - Last 24 Hours (Table) 10/20/17 10/20/17 Range/Units 11:25 11:25 RBC 3.11 L (4.30-5.90) m/uL Hgb 8.7 L (13.0-17.5) gm/dL Hct 28.7 L (39.0-53.0) % MCHC 30.3 L (31.0-37.0) g/dL RDW 17.8 H (11.5-15.5) % Lymphocytes # 0.3 L (1.0-4.8) k/uL Chloride 97 L (98-107) mmol/L Carbon Dioxide 32 H (22-30) mmol/L BUN 45 H (9-20) mg/dL Glucose 164 H (74-99) mg/dL Calcium 8.0 L (8.4-10.2) mg/dL Phosphorus 2.2 L (2.5-4.5) mg/dL Microbiology - Last 24 Hours (Table) 10/16/17 23:50 Blood Culture - Preliminary Blood No Growth after 72 hours 10/16/17 17:20 Blood Culture - Preliminary Blood No Growth after 72 hours Assessment and Plan Plan: Acute on chronic hypoxic respiratory failure secondary to Acute exacerbation of COPD superimposed on severe cardiomyopathy * Chest x-ray suggesting a right lower lobe infiltrate or atelectasis, patient afebrile leukocytosis - Duoneb 4 times daily, when necessary bronchodilators - symbicort transitioned to performist and pulmicort - Continue abx, steroids - Pulmonary hygiene with incentive spirometry Newly discovered systolic cardiomyopathy, decompensated on arrival, EF <20% - Continue metoprolol - ? need for ischemic eval and timing - Not candidate for ACEI as bp low - stric I and O - Daily weights STANLEY - Now resolved - suspect due to forced diureis versus cardiorenal - hold lasix, no IVF with low EF and increased work of breathing - Avoid additional nephrotoxic agents, appreciated neurology recommendations A. fib with RVR with elevated troponin - Troponin likely elevated secondary to demand ischemia -Serial troponins flat - Increase metoprolol dose to 75mg po tid. continue amiodarone. - Cardio recs appreciated - Xarelto due to gi bleeding - tele EtOH abuse -[facility] protocol -Thiamine and folic acid Chronic anemia currently at baseline * Hemoglobin stable, post 1 unit transfusion, * No further bleeding so far. GI recommend watchful waiting. * Continue Ferrlecit Hypertension, controlled -Continue home medications Dyslipidemia -Continue statin DVT prophylaxis: Holding AC due to GI bleeding Disposition Discussed with: Patient, nursing, cardiology Anticipated discharge: [address]: Home with home health
[2017-10-20] MEDS: PRAVASTATIN SODIUM 40 MG TAB PO SCH (21:54)
[2017-10-20] MEDS: TAMSULOSIN 0.4 MG CAP.ER.24H PO SCH (21:54)
[2017-10-20 23:02] VITALS: RESP 20
[2017-10-20] MEDS: SODIUM CHLORIDE 0.9% 1,000 ML IV SCH (23:29)
[2017-10-21] MEDS: PIPERACILLIN-TAZOBACTAM 3.375 GM in DEXTROSE/WATER 1 50ML.BAG IVPB SCH ×2 (01:26→10:03)
[2017-10-21] MEDS: IPRATROPIUM-ALBUTEROL 3 ML NEB INHALATION SCH ×4 (03:08→16:44)
[2017-10-21 06:39] VITALS: BP 126/91; TEMP 97.4
[2017-10-21] MEDS: BUDESONIDE 1 MG/2 ML NEBU INHALATION SCH (07:29)
[2017-10-21] MEDS: FORMOTEROL FUMARATE 20 MCG/2 ML NEBU INHALATION SCH (07:29)
[2017-10-21] MEDS: AMIODARONE 200 MG TAB PO SCH (08:14)
[2017-10-21] MEDS: NICOTINE 21MG/24HR PATCH TRANSDERM SCH (08:14)
[2017-10-21] MEDS: FAMOTIDINE 20 MG TAB PO SCH (08:15)
[2017-10-21] MEDS: BENZONATATE 100 MG CAP PO SCH (08:15)
[2017-10-21] MEDS: METOPROLOL TARTRATE 50 MG TAB PO SCH (08:20)
[2017-10-21] MEDS: methylPREDNISolone SOD SUCCI 40 MG/ML 1 ML VIAL IV SCH (08:38)
[2017-10-21] MEDS: SODIUM FERRIC GLUCONAT-SUCROSE 125 MG in SODIUM CHLORIDE 0.9% 100 ML IVPB SCH (08:39)
[2017-10-21 08:42] LABS: Anisocytosis Slight; Basophils % (A) 0 %; Eosinophils % (A) 0 %; HCT 28.5 % (39.0-53.0); HGB 8.4 gm/dL (13.0-17.5); Hypochromasia Marked; Lymphocytes # (A) 0.5 k/uL (1.0-4.8); Lymphocytes % (A) 6 %; MCH 27.4 pg (25.0-35.0); MCHC 29.6 g/dL (31.0-37.0); MCV 92.4 fL (80.0-100.0); Mean Platelet Volume 7.5; Monocytes # (A) 0.4 k/uL (0-1.0); Monocytes % (A) 6 %; Neutrophils # (A) 6.6 k/uL (1.3-7.7); Neutrophils % (A) 87 %; Platelet Count 196 k/uL (150-450); Poikilocytosis Slight; RBC 3.08 m/uL (4.30-5.90); RDW 17.7 % (11.5-15.5); WBC 7.6 k/uL (3.8-10.6)
[2017-10-21 08:45] LABS: Anion Gap 5 mmol/L; Blood Urea Nitrogen 42 mg/dL (9-20); Carbon Dioxide 32 mmol/L (22-30); Chloride 100 mmol/L (98-107); Glucose 122 mg/dL (74-99); Potassium 4.3 mmol/L (3.5-5.1); Sodium 137 mmol/L (137-145)
--- NOTE | 2017-10-21 09:26 | XR ---
EXAMINATION TYPE: XR chest 1V DATE OF EXAM: 10/21/2017 CLINICAL HISTORY: Difficulty breathing hand CHF progress study. TECHNIQUE: Single AP portable upright view of the chest is obtained. COMPARISON: Chest x-ray from one day earlier and older studies. FINDINGS: There is stable left subclavian central venous catheter. The cardiac silhouette size is st able and mildly enlarged. There is background chronic emphysematous change with tiny bilateral pleura l effusions and associated bibasilar atelectasis and/or infiltrate. Osseous structures are deminerali zed. There is partial visualization of surgical change right shoulder level. IMPRESSION: Overall stable findings, chronic emphysematous change and mild cardiomegaly with tiny b ilateral pleural effusions and associated bibasilar atelectasis and/or infiltrate all redemonstrated.
--- NOTE | 2017-10-21 11:10 | P.PN ---
Subjective Progress Note Date: 10/21/17 Principal diagnosis: Dyspnea, multifactorial, related to an acute COPD exacerbation and a component of CHF. 72-year-old male patient, known history of advanced COPD with chronic hypoxic respiratory failure in addition to history of chronic alcoholism, history of fall with pulmonary contusion, traumatic rib fracture for which the patient was hospitalized back in 2017, history of chronic atrial fibrillation, CHF, hypertension, CVA involving the temporal lobe, hyperlipidemia, chronic anemia and cervical and lumbar stenosis. The patient continues to drink alcohol excessively around pint on a daily basis. The patient presented to the hospital because of worsening shortness of breath a few days duration. He was using his DuoNeb nebulized treatments without any improvement. He was also using the Combivent. The patient is oxygen dependent and utilize oxygen at 3 L at all times. His sputum production was essentially whitish and there was no hemoptysis or pleurisy. In the hospital, the patient was further found to be nature fibrillation with rapid ventricular response. The patient was thought to be CHF knowing that his proBNP level was quite elevated at 12,200. Troponins were also mildly elevated at 0.04 and 0.03 respectively. The patient was started on diuretics knowing that the chest x-ray showed cardiomegaly and echocardiac Dimas showed improvement in the left atrial ejection fraction with an EF of around 20%. The patient diuresed adequately and the patient became prerenal and the creatinine is up to 1.7. Currently is diuretics is on hold. Meanwhile COPD exacerbations being still treated with a combination of bronchodilators and steroids. The patient is currently on Pulmicort Respules, DuoNeb neb last treatment [id number], prednisone burst taper starting with 40 mg and the patient is also on doxycycline as an empiric antibiotic coverage. No signs of any delirium tremens. His resting comfortably in bed. He remains in atrial fibrillation. Is on Xarelto for anticoagulation. He is still smoking. 10/16/2017 patient seen in follow-up on selective care unit. He was noted to be more lethargic this morning, and he was hypotensive with SBP in the 80s, and DBP in the 50s. Remains afebrile, remains in A. fib, on his heart rate is better controlled, ranging from 80s to 110s BPM. Today's lab work was reviewed , and the patient's renal function is worsening, B1 is up to 80/56, and creatinine is up to 2.24 from 1.7 on yesterday's labs. Serum sodium is 135 potassium is 5.2, WBC of 7.7, and hemoglobin of 7.7. His diuretics were placed on hold in view of worsening renal function and hypotension. Patient is receiving an IV fluid bolus of 500 mL of 0.9 normal saline, and we will give the patient additional 500 mL of fluids. Encourage oral fluid intake. At the time of her evaluation patient is awake alert, lung sounds are positive for diffuse wheezing, and rhonchi. Patient productive cough with production of yellow sputum. Patient was initially placed on prednisone, we will stop the patient increase it to Solu-Medrol 60 mg every 6 hours. Continues on empiric antibiotics doxycycline. No fever no chills. His chest x-ray was reviewed with Dr. Perez and shows left pleural effusion no other acute process identified. On 10/17/2017 the patient is being seen in intensive care unit. Please note the events that occurred yesterday. I will the patient in intensive care unit as the patient was developing hypotension, diminished urine output and diminished level of consciousness. A triple lumen catheter was inserted. The patient was given a total of 2 L of IV bolus. Subsequently he was given a dose of Lasix 60 mg IV push knowing that he was not producing much of urine output. A triple-lumen catheter was inserted and the CVP initially was 24. Over night, the patient's urine output improved and is currently producing more than 50 mL an hour of urine output. Renal function is also improving and creatinine is down to 2.0. Today chest x-ray shows development of a right lower lobe consolidation, probably an area of pneumonia. Noted the patient was receiving doxycycline 40s to be exacerbation treatment/empiric antibiotic coverage. Hemodynamically stable. Pressors have been weaned off and discontinued and the patient is maintaining his own blood pressure. IV fluids TO KVO. The antibiotics will be further broaden. He is afebrile. He has a congested cough and sputum will be sent for Gram stain and culture. No altered mentation. Remains on examination bronchodilators and steroids regarding his COPD exacerbation. As mentioned, is alcoholic and he has a very poor LV function with ejection fraction of 20% consistent with alcoholic cardiomyopathy. The patient also developed some tachycardia regarding his atrial fibrillation. He was started on amiodarone bolus and loading by cardiology. The beta blockers have been discontinued earlier because of his underlying hypotension. In any rate, the metoprolol can be restarted once the blood pressure stabilizes. The patient is receiving amiodarone in addition to Xarelto for long-term anticoagulation regarding his atrial fibrillation. No signs of any delirium tremens. Mental status is more appropriate compared to yesterday. On 10/18/2017 I'm seeing this patient in follow-up in intensive care unit. Awake and alert and following commands and answering questions appropriately. Hemodynamically off pressors. Hemoglobin has dropped and the patient will be receiving a unit of packed RBC. The chest x-ray from today still showing bilateral pleural effusion and right lower lobe consolidation of stepped up that by treatment included IV Zosyn. The patient continues to show improvement in the urine output and renal function and the creatinine is down to 1.2. No fever. No chills. No nausea vomiting or any emesis. No abdominal pain. No chest pain. No signs of any delirium tremors and the patient seems to be more appropriate. He remains nature fibrillation. Slightly tachycardic. He is on amiodarone drip which has not impacted his heart rate control. Beta blockers were restarted yesterday and the patient has been off pressors for more than 24 hours. No other significant events overnight. On 10/19/2017, patient is calm and comfortable resting comfortably in bed. Hemodynamically stable. Renal function improved and normalized. The patient is on on any pressors for blood pressure control. Less tachycardic compared to yesterday. Overnight, the patient had bloody bowel movement that was burgundy in color. The patient total of 2 episodes. Note that he had dropped his hemoglobin the day prior his hemoglobin dropped down to 6.8 and the patient received a unit of packed RBC. Since then, the hemoglobin has been stable. Apparently his last colonoscopy was done within a year and a GI consultation was requested. No nausea. No emesis. No abdominal pain or distention. No chest pain. No altered mentation. He is on a combination of amiodarone and metoprolol for rate control. He is also on IV Solu-Medrol. He is on no pressors. His chest x-ray still showing a right lower lobe consolidation/to patient on IV Zosyn and sputum cultures showing gram-negative bacillus and the final cultures and sensitivities are still pending. No signs of any delirium tremens for now. On 10/20/2017 patient seen in follow-up. He is resting in bed, no distress, no fever or chills, no chest discomfort, no hemoptysis, no worsening chest congestion or sputum production. Not require BiPAP support last night, remained hemodynamically stable, no new lab work today, today's chest x-ray has been reviewed by Dr. Rojo, and shows improving aeration at the right lung base with trace residual effusion, and some patchy atelectasis at the left base. There has been improvement in the pulmonary vascular congestion. Pulse ox on 2 L per nasal cannula is 98%, she remains in A. fib, and the rate is in the low 100s. Sputum culture showed Enterobacter cloakae and Moraxella catarrhalis. The Enterobacter was found to be susceptible to Zosyn which the patient is currently on, sensitivity on the Moraxella was not done. Patient continues on IV Solu-Medrol 40 mg every 12 hours, and nebulized bronchodilators. He is on Tessalon Perles. He is dyspneic with exertion. No occurrence of lower GI bleeding, patient states he had a bowel movement this morning which was negative for any visible blood, was normal in appearance. He states he had 3 bowel movements yesterday, liver he is not sure if those were positive for any blood in it. Denies any dizziness, denies any lightheadedness , denies any chest pain. Patient's Xarelto remains on hold. he is status post transfusion with 1 unit of PRBC for hemoglobin of 6.4, and today's hemoglobin is 8.5. GI service consultation noted, and the patient will be treated conservatively at this time. On 10/21/2017 patient seen again in follow-up on medical surgical floor. No specific complaints, patient has been up ambulating with physical therapy and the rolling walker, and tolerated activity well. No fever or chills, no chest pain, no worsening dyspnea. No worsening chest congestion, lung sounds are positive for some scattered rhonchi, but overall improved compared to previous exams, sputum culture was positive for Enterobacter cloacae and Moraxella catarrhalis, and the Enterobacter was susceptible to Zosyn, but the sensitivity was not done on the Moraxella, and after speaking to the lab we were told that usually it is very difficult to do sensitivity on this particular organism. It is however usually susceptible to Zosyn and Augmentin, and patient did have clinical improvement on IV Zosyn. Patient is stable for discharge home from the pulmonary standpoint. Todays lab work has been reviewed, no evidence of leukocytosis, the WBC 7.6, hemoglobin is 8.4, there has been no recurrence of lower GI bleeding, Xarelto remains on hold, hemodynamically patient is stable, denies any chest pain. Electrolytes are within normal limits, CO2 32, BUN is 42 , creatinine 0.93. Objective - Vital Signs Vital signs: Vital Signs Temp 97.4 F L 10/21/17 05:45 Pulse 98 10/21/17 10:50 Resp 20 10/21/17 05:45 BP 126/91 10/21/17 05:45 Pulse Ox 98 10/21/17 07:29 Intake & Output 10/20/17 10/21/17 10/21/17 18:59 06:59 18:59 Intake Total 1320 Output Total 175 Balance 1320 -175 Intake: Oral 1320 Output: Urine 175 Other: Voiding Method Bedside Commode Bedside Commode # Voids 3 3 # Bowel Movements 1 1 - Exam Thin frail elderly male patient, mildly short of breath at rest, patient has been wearing a BiPAP mask intermittently. No signs of any tremors or confusion or agitation at this point in time. He is following commands and answering questions appropriately. There was no scleral icterus or corneal arcus. Mucous membranes were moist.Neck was supple and without jugular venous distension, thyromegaly, or carotid bruits. Carotids were easily palpable bilaterally. There was no adenopathy. Lung sounds are positive for scattered rhonchi, no significant wheezes noted on today's exam. No rales. Cardiac exam revealed the PMI to be normally situated and sized. The rhythm was irregular and no extrasystoles were noted during several minutes of auscultation. The first and second heart sounds were normal and physiologic splitting of the second heart sound was noted. There were no murmurs, rubs, clicks, or gallops.Abdominal exam revealed normal bowel sounds. The abdomen was soft, non-tender, and without masses, organomegaly, or appreciable enlargement of the abdominal aorta. Extremities show diffuse muscle atrophy. As a cyanosis or clubbing. Pulses are equal and symmetrical bilaterally in 4 extremities. Neurologically, the patient is awake and alert and following commands and answering questions appropriately. Examination of the skin revealed no evidence of significant rashes, suspicious appearing nevi or other concerning lesions. - Labs CBC & Chem 7: 10/21/17 08:10 10/21/17 08:10 Labs: Abnormal Lab Results - Last 24 Hours (Table) 10/20/17 10/20/17 10/21/17 Range/Units 11:25 11:25 08:10 RBC 3.11 L 3.08 L (4.30-5.90) m/uL Hgb 8.7 L 8.4 L (13.0-17.5) gm/dL Hct 28.7 L 28.5 L (39.0-53.0) % MCHC 30.3 L 29.6 L (31.0-37.0) g/dL RDW 17.8 H 17.7 H (11.5-15.5) % Lymphocytes # 0.3 L 0.5 L (1.0-4.8) k/uL Chloride 97 L (98-107) mmol/L Carbon Dioxide 32 H (22-30) mmol/L BUN 45 H (9-20) mg/dL Glucose 164 H (74-99) mg/dL Calcium 8.0 L (8.4-10.2) mg/dL Phosphorus 2.2 L (2.5-4.5) mg/dL 10/21/17 Range/Units 08:10 RBC (4.30-5.90) m/uL Hgb (13.0-17.5) gm/dL Hct (39.0-53.0) % MCHC (31.0-37.0) g/dL RDW (11.5-15.5) % Lymphocytes # (1.0-4.8) k/uL Chloride (98-107) mmol/L Carbon Dioxide 32 H (22-30) mmol/L BUN 42 H (9-20) mg/dL Glucose 122 H (74-99) mg/dL Calcium 8.0 L (8.4-10.2) mg/dL Phosphorus (2.5-4.5) mg/dL Microbiology - Last 24 Hours (Table) 10/16/17 23:50 Blood Culture - Preliminary Blood No Growth after 96 hours 10/16/17 17:20 Blood Culture - Preliminary Blood No Growth after 96 hours Assessment and Plan Plan: Assessment: 1 shortness of breath, secondary to a combination of CHF and COPD. The patient condition has a suspected right lower lobe pneumonia and tiny bilateral pleural effusions. Overall condition is improved. 2 advanced COPD with chronic hypoxic respiratory failure, improving and the patient is currently on oxygen at 2 L/m nasal cannula. 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 Sputum culture was positive for Enterobacter cloacae susceptible to Zosyn and Moraxella catarrhalis and the susceptibility screen was not done patient had clinical improvement on Zosyn 4 acute kidney injury, improving the creatinine is down to 1.1 5 previous history of traumatic right-sided hemothorax requiring chest tube insertion and subsequent removal 6 previous history of chest wall contusion/pulmonary contusion related to a fall 7 alcoholism 8 previous hospitalization for acute alcohol intoxication 9 chronic atrial fibrillation, currently on a combination of amiodarone and metoprolol. Still a bit tachycardic and the patient is also on long-term medical condition with Xarelto. 10 hypertension 11 smoker 12 previous history of CVA involving the left temporal lobe 13 hyperlipidemia 14 cervical/lumbar spondylosis 15 chronic normocytic anemia, with interval drop in hemoglobin down to 6.8 16 small hematoma the site of a triple lumen catheterization at the right subclavian area, no active bleeding and the patient is still on Xarelto. 17 new onset GI bleed, probably of a lower GI source, hematoma dropped down to 6.8 and the patient got transfused with a unit of packed RBC and since then the hemoglobin is stable at 8.3. The patient is currently off Xarelto. Plan Patient remains stable, and is improving. No fever or chills, no worsening dyspnea, has been up ambulating, and tolerating activity well. He has been reviewed, and shows stable findings, on a background of chronic emphysematous changes, and mild cardiomegaly with tiny bilateral pleural effusions and associated bibasilar atelectasis and/or infiltrate. Clinically patient has improved, he is doing well. Stable for discharge home today from pulmonary standpoint, on a 5 day course of oral Augmentin, prednisone taper, and his maintenance inhalers and nebulized treatments, follow-up with Dr. Virk in the office in one week I performed a history & physical examination of the patient and discussed their management with my nurse practitioner, Carolina Cochran. I reviewed the nurse practitioner's note and agree with the documented findings and plan of care. Lung sounds are scattered rhonchi. The findings and the impression was discussed with the patient. I attest to the documentation by the nurse practitioner. Time with Patient: Less than 30
--- NOTE | 2017-10-21 11:13 | P.PN ---
Subjective Mr. Hills is seen and examined on medical surgical floor. He has history of chronic persistent atrial fibrillation, cardiomyopathy with systolic dysfunction and COPD. Echocardiogram on this admission reveals severely impaired LV systolic function with EF less than 20%, severely dilated LA, mild aortic stenosis with mean gradient 11.06 mmHg, mild-moderate MR, mild-moderate TR. His heart rates have been uncontrolled since admission despite amiodarone and lopressor. He also was hypotensive requiring pressors in ICU at one point. Xarelto was started and he had bloody stools requiring a blood transfusion. He has been seen by GI and no endoscopies are planned at this time, thought to be related to perianal disease. Currently he is maintained on amiodarone 400 mg daily and lopressor was increased yesterday to 100 mg BID. Blood pressure 114/ 52 heart rate 100-104 this morning. He is seen and examined sitting up in bed in no acute distress. He is rather argumentative and aggressive with nursing staff. He denies symptoms of chest pain, shortness of breath, palpitations, dizziness or nausea. Laboratory data today reveals hemoglobin 8.5, platelets 205, INR 1.6. 10/21/2017 The patient is seen and examined sitting up eating breakfast. Lopressor was increased yesterday to 75 mg TID. Blood pressure 126/91 heart rate in 90-100 range. Hemoglobin 8.4, potassium 4.3, sodium 137, creatinine 0.93. He denies palpitations, dizziness, chest pain, shortness of breath, nausea or vomiting. His mood is much more pleasant today. Nephrology has recommended he remain off of diuretics at this time. Repeat chest xray this morning shows stable findings , chronic emphysema, mild cardiomegaly, tiny b/l pleural effusion with associated bibasilar atelectasis/infiltrate. He continues on IV antibiotics, IV steroids and breathing treatments. Objective - Vital Signs Vital signs: Vital Signs Temp 97.4 F L 10/21/17 05:45 Pulse 98 10/21/17 07:52 Resp 20 10/21/17 05:45 BP 126/91 10/21/17 05:45 Pulse Ox 98 10/21/17 07:29 Intake & Output 10/20/17 10/21/17 10/21/17 18:59 06:59 18:59 Intake Total 1320 Output Total 175 Balance 1320 -175 Intake: Oral 1320 Output: Urine 175 Other: Voiding Method Bedside Commode # Voids 3 3 # Bowel Movements 1 1 - Exam GENERAL: Well-appearing, well-nourished and in no acute distress. Frail. NECK: Supple without JVD or thyromegaly. LUNGS: Course rhonchi noted, no wheezes, no rales. Respiration equal and unlabored. Diminished bilaterally. HEART: Irregular rate and rhythm with systolic ejection murmur at the base , no rubs or gallops. S1 and S2 heard. EXTREMITIES: Normal range of motion, no edema. No clubbing or cyanosis. Peripheral pulses intact and strong. - Labs CBC & Chem 7: 10/21/17 08:10 10/21/17 08:10 Labs: Abnormal Lab Results - Last 24 Hours (Table) 10/20/17 10/20/17 10/21/17 Range/Units 11:25 11:25 08:10 RBC 3.11 L 3.08 L (4.30-5.90) m/uL Hgb 8.7 L 8.4 L (13.0-17.5) gm/dL Hct 28.7 L 28.5 L (39.0-53.0) % MCHC 30.3 L 29.6 L (31.0-37.0) g/dL RDW 17.8 H 17.7 H (11.5-15.5) % Lymphocytes # 0.3 L 0.5 L (1.0-4.8) k/uL Chloride 97 L (98-107) mmol/L Carbon Dioxide 32 H (22-30) mmol/L BUN 45 H (9-20) mg/dL Glucose 164 H (74-99) mg/dL Calcium 8.0 L (8.4-10.2) mg/dL Phosphorus 2.2 L (2.5-4.5) mg/dL 10/21/17 Range/Units 08:10 RBC (4.30-5.90) m/uL Hgb (13.0-17.5) gm/dL Hct (39.0-53.0) % MCHC (31.0-37.0) g/dL RDW (11.5-15.5) % Lymphocytes # (1.0-4.8) k/uL Chloride (98-107) mmol/L Carbon Dioxide 32 H (22-30) mmol/L BUN 42 H (9-20) mg/dL Glucose 122 H (74-99) mg/dL Calcium 8.0 L (8.4-10.2) mg/dL Phosphorus (2.5-4.5) mg/dL Microbiology - Last 24 Hours (Table) 10/16/17 23:50 Blood Culture - Preliminary Blood No Growth after 96 hours 10/16/17 17:20 Blood Culture - Preliminary Blood No Growth after 96 hours Assessment and Plan Assessment: ASSESSMENT 1. Chronic persistent atrial fibrillation, not tolerating long-term anticoagulation with evidence of GI bleeding on this admission. Ventricular rate controlled this time. 2. Cardiomyopathy with severely impaired LV systolic function, EF less than 20% . New diagnosis this admission, normal EF 03/2017. 3. Acute on chronic systolic heart failure, new this admission. 4. History of hypertension 5. History of chronic alcohol abuse 6. Noncompliance in the past PLAN Continue current medical regimen. No diuretics per nephrology. Will consider adding UMA inhibitor down the road if blood pressure tolerates. Stable from a cardiac perspective. Follow up with Dr. Perry in 2-3 weeks, appointment has been made with the office. Nurse Practitioner note has been reviewed, I agree with a documented findings and plan of care. Patient was seen and examined.
[2017-10-21] MEDS: FOLIC ACID 1 MG TAB PO SCH (11:29)
[2017-10-21] MEDS: THIAMINE 100 MG TAB PO SCH (11:29)
[2017-10-21] MEDS: HYDROcodone/APAP 5-325MG 1 EACH TAB PO PRN (11:33)
--- NOTE | 2017-10-21 11:35 | P.PN ---
Subjective Progress Note Date: 10/21/17 Reevaluated today in regards to rectal bleeding. No recurrence of rectal bleeding. Passing nonbloody bowel movements. Denies abdominal pain. Objective - Vital Signs Vital signs: Vital Signs Temp 97.4 F L 10/21/17 05:45 Pulse 96 10/21/17 11:22 Resp 20 10/21/17 05:45 BP 126/91 10/21/17 05:45 Pulse Ox 98 10/21/17 07:29 Intake & Output 10/20/17 10/21/17 10/21/17 18:59 06:59 18:59 Intake Total 1320 Output Total 175 Balance 1320 -175 Intake: Oral 1320 Output: Urine 175 Other: Voiding Method Bedside Commode Bedside Commode # Voids 3 3 # Bowel Movements 1 1 - Exam General appearance: The patient is alert, oriented, in no acute distress. HET: Head is normocephalic and atraumatic. Pupils are equal and reactive. Oropharynx is clear without lesions. Neck: Supple without lymphadenopathy. Trachea midline. Heart: S1 S2. Regular rate and rhythm. Lungs: No crackles or wheezes are heard. Abdomen: Soft, nontender, nondistended with bowel sounds. No peritoneal signs. No palpable organomegaly or masses. - Labs CBC & Chem 7: 10/21/17 08:10 10/21/17 08:10 Labs: Abnormal Lab Results - Last 24 Hours (Table) 10/20/17 10/20/17 10/21/17 Range/Units 11:25 11:25 08:10 RBC 3.11 L 3.08 L (4.30-5.90) m/uL Hgb 8.7 L 8.4 L (13.0-17.5) gm/dL Hct 28.7 L 28.5 L (39.0-53.0) % MCHC 30.3 L 29.6 L (31.0-37.0) g/dL RDW 17.8 H 17.7 H (11.5-15.5) % Lymphocytes # 0.3 L 0.5 L (1.0-4.8) k/uL Chloride 97 L (98-107) mmol/L Carbon Dioxide 32 H (22-30) mmol/L BUN 45 H (9-20) mg/dL Glucose 164 H (74-99) mg/dL Calcium 8.0 L (8.4-10.2) mg/dL Phosphorus 2.2 L (2.5-4.5) mg/dL 10/21/17 Range/Units 08:10 RBC (4.30-5.90) m/uL Hgb (13.0-17.5) gm/dL Hct (39.0-53.0) % MCHC (31.0-37.0) g/dL RDW (11.5-15.5) % Lymphocytes # (1.0-4.8) k/uL Chloride (98-107) mmol/L Carbon Dioxide 32 H (22-30) mmol/L BUN 42 H (9-20) mg/dL Glucose 122 H (74-99) mg/dL Calcium 8.0 L (8.4-10.2) mg/dL Phosphorus (2.5-4.5) mg/dL Microbiology - Last 24 Hours (Table) 10/16/17 23:50 Blood Culture - Preliminary Blood No Growth after 96 hours 10/16/17 17:20 Blood Culture - Preliminary Blood No Growth after 96 hours Assessment and Plan (1) Rectal bleeding Narrative/Plan: Most likely on the basis of perianal disease possible constipation colonoscopy 2015. Current Visit: Yes Status: Acute Code(s): K62.5 - HEMORRHAGE OF ANUS AND RECTUM SNOMED Code(s): 24318451 Plan: 1. Daily stool softeners avoid constipation. 2. Resume anticoagulation. 3. Discharge per medicine/citrix consultant services. We'll follow as needed. Assessment and plan a care discussed with Dr. Perry
--- NOTE | 2017-10-21 12:56 | P.DS ---
Providers Date of admission: 10/13/17 19:44 Expected date of discharge: 10/21/17 Attending physician: Zainab Trevino MD Consults: 10/13/17 21:34 Consult Physician Routine Consulting Provider: Rachid Fritz Consult Reason/Comments: afib with RVR Do you want consulting provider notified?: Yes 10/15/17 07:54 Consult Physician Routine Consulting Provider: Howard Perez Consult Reason/Comments: AE COPD on Bipap Do you want consulting provider notified?: Yes 10/16/17 11:37 Consult Physician Routine Consulting Provider: Kristen Rodriguez Consult Reason/Comments: Acute kidney injury Do you want consulting provider notified?: Yes 10/16/17 18:35 Consult Physician Routine Consulting Provider: Kristen Rodriguez Consult Reason/Comments: Acute renal failure Do you want consulting provider notified?: Yes Primary care physician: Darrick June Forbes Hospital Course: 72-year-old male with history of COPD on home oxygen 3 L through nasal cannula presented to the hospital with severe progressive shortness of breath, he reported trying all his inhalers at home with little benefit. He was also having on top of that he noticed some heart racing. He stressed the fact that he is compliant with all his medications especially the heart medications and he did not miss anything. He otherwise denied any fevers or chills, he reported some coughing with whitish sputum which has not changed from his baseline, he admitted that he continues to smoking, and drinks about a fifth every night to help him sleep. No chest pain, abdominal pain, nausea or vomiting, changes in bowel habits. In the ED patient was found to be in A. fib with RVR for which diltiazem was started. Patient admitted for management of A. fib with RVR was started on cardizem gtt, was found to be hypoxic at 84% of his 3 L nasal cannula. His heart rate was elevated at 148. Initial laboratory analysis showed an elevated BUN of 23. Slightly elevated troponin of 0.47 and an elevated BNP of 12,200. Chest x-ray showed cardiomegaly without overt heart failure. He was started on a Cardizem drip. By the morning after admission his breathing had improved significantly. Cardiology was consulted and he was transitioned from cardizem gtt to oral verapamil. Elevated trops was thought to be sec to demand ischemia and no further workup was recommended by cardio. Over the evening on 10/14 his work of breathing increased and he was started on Bipap. His echo cam back with an EF of less than 20% and severe global hypokanesis. New finding subsequently the verapamil was discontinued and the metoprolol was increased to 100mg BID. His home dose was 25mg bid. He was initially diuresed with lasix and subsequently had an STANLEY due to the diuresis so that was held. He was also followed by pulm service who helped manage his Copd exacerbation, he was treated with lora, performist and pulmicort, doxycycline as well as IV steorids. Over the course of the hospitalization patient was constipated most of this stay and subsequently had a bowel movement he had a little bleeding. He was evaluated by GI, Xarelto was held. After that he did not have any recurrent bleeding. GI did not recommend any endoscopy procedure. On the day of discharge GI recommended resuming his anticoagulation treatment. Regarding his smoking and alcohol abuse who was strongly advised to quit both. His O2 saturation on the day of discharge were above 92% on his baseline O2. His heart rate was slightly elevated and because of that they'll metoprolol dose was increased to 75 mg 3 times a day. She'll be discharged home in a stable condition. Pulmonary and cardiology concur with discharge. Patient is aware that he needs to follow-up with his primary care physician as well as cardiology and pulmonary service after discharge. Patient Condition at Discharge: Stable Plan - Discharge Summary Discharge Rx Participant: No New Discharge Prescriptions: New Amoxicillin/Potassium Clav [Augmentin 875-125 Tablet] 1 tab PO Q12HR 5 Days # 10 tab predniSONE 10 mg PO DIRECTED 12 Days #30 tab Amiodarone [Cordarone] 400 mg PO DAILY #30 tab Metoprolol Tartrate [Lopressor] 75 mg PO TID #90 tab Pravastatin Sodium [Pravachol] 40 mg PO HS #30 tab Budesonide [Pulmicort] 1 mg INHALATION RT-BID #20 nebu Formoterol Fumarate [Perforomist] 20 mcg INHALATION RT-BID #20 nebu Nicotine 21Mg/24Hr Patch [Habitrol] 1 patch TRANSDERM DAILY patch Continue Albuterol Sulfate [Proair Hfa] 2 puff INHALATION RT-Q6H PRN PRN Reason: Shortness Of Breath Rivaroxaban [Xarelto] 20 mg PO DAILY HYDROcodone/APAP 10-325MG [[place] 10-325] 1 tab PO Q6H PRN PRN Reason: Pain Ipratropium-Albuterol Nebulize [Duoneb 0.5 mg-3 mg/3 ml Soln] 3 ml INHALATION RT-TID PRN PRN Reason: Shortness Of Breath Ipratropium [place] [Atrovent Hfa] 2 puff INHALATION RT-QID PRN PRN Reason: Shortness Of Breath Discharge Medication List Albuterol Sulfate [Proair Hfa] 2 puff INHALATION RT-Q6H PRN 09/14/16 [History] Rivaroxaban [Xarelto] 20 mg PO DAILY 03/28/17 [History] HYDROcodone/APAP 10-325MG [[place] 10-325] 1 tab PO Q6H PRN 04/13/17 [History] Ipratropium [place] [Atrovent Hfa] 2 puff INHALATION RT-QID PRN 10/14/17 [ History] Ipratropium-Albuterol Nebulize [Duoneb 0.5 mg-3 mg/3 ml Soln] 3 ml INHALATION RT -TID PRN 10/14/17 [History] Amiodarone [Cordarone] 400 mg PO DAILY #30 tab 10/21/17 [Rx] Amoxicillin/Potassium Clav [Augmentin 875-125 Tablet] 1 tab PO Q12HR 5 Days #10 tab 10/21/17 [Rx] Budesonide [Pulmicort] 1 mg INHALATION RT-BID #20 nebu 10/21/17 [Rx] Formoterol Fumarate [Perforomist] 20 mcg INHALATION RT-BID #20 nebu 10/21/17 [Rx ] Metoprolol Tartrate [Lopressor] 75 mg PO TID #90 tab 10/21/17 [Rx] Nicotine 21Mg/24Hr Patch [Habitrol] 1 patch TRANSDERM DAILY patch 10/21/17 [Rx] Pravastatin Sodium [Pravachol] 40 mg PO HS #30 tab 10/21/17 [Rx] predniSONE 10 mg PO DIRECTED 12 Days #30 tab 10/21/17 [Rx] Follow up Appointment(s)/Referral(s): Diego Virk DO [Doctor of Osteopathic Medicine] - [facility], [NON-STAFF] - Darrick Georges MD [Primary Care Provider] - 10/23/17 8:00 am ( Previously scheduled appointment) Ayden Perry MD [STAFF PHYSICIAN] - 10/28/17 4:00 pm Patient Instructions/Handouts: Heart Failure (GEN), A-fib (Atrial Fibrillation ) (DC)
[2017-10-21 16:47] VITALS: PULSE 100
--- NOTE | 2017-10-21 19:10 | PN ---
PROGRESS NOTE The patient is seen for followup for acute kidney injury. His renal function has improved significantly. Overall, the patient is doing very well. There are plans for possible discharge today. EXAMINATION: This morning, blood pressure was 126/91, heart rate 98 per minute. Patient is afebrile. HEART: S1, S2. LUNGS: Bilateral breath sounds are heard. Abdomen is soft, nontender. Lower extremities show no evidence of edema. GRANULATING BLENDER is grossly intact. LABS: Revealed sodium 137, potassium 4.3, BUN 42, serum creatinine 0.93, hemoglobin 8.4 g/dL. ASSESSMENT: 1. Acute kidney injury, currently resolved. 2. Congestive heart failure, now compensated. 3. Hypokalemia secondary to diuretics, status post replacement. 4. Hyperkalemia associated with acute kidney injury previously, now resolved. 5. End-stage cardiomyopathy. 6. Iron deficiency, currently on IV iron. PLAN: Patient is stable for discharge from nephrology standpoint. Monitor for resuming diuretics as outpatient, depending on the volume status. MMODL / IJN: [id number] /
== END 2017-10-21 17:15 | disposition home health service (06) | DRG 189 ==
LOC: EC 17:37 → EEVIPCON 19:44 → 6SEL 19:44 → 6ICU 10-16 16:04 → 4MS4W 10-19 19:57
PROVIDERS: ADMIT Internal Medicine; ATTEND Internal Medicine
PROC: 05H633Z Insertion of Infusion Device into Left Subclavian Vein, Percutaneous Approach (ICD-10-PCS; principal; 2017-10-16)
DX: J96.21 Acute and chronic respiratory failure with hypoxia (principal); I50.23 Acute on chronic systolic (congestive) heart failure; J18.9 Pneumonia, unspecified organism; N17.0 Acute kidney failure with tubular necrosis; J44.1 Chronic obstructive pulmonary disease with (acute) exacerbation; E87.2 Acidosis; D62 Acute posthemorrhagic anemia; I24.8 Other forms of acute ischemic heart disease; N17.9 Acute kidney failure, unspecified; R57.9 Shock, unspecified; I42.6 Alcoholic cardiomyopathy; J44.0 Chronic obstructive pulmonary disease with (acute) lower respiratory infection; I48.2 Chronic atrial fibrillation; J44.9 Chronic obstructive pulmonary disease, unspecified; F17.210 Nicotine dependence, cigarettes, uncomplicated; F10.10 Alcohol abuse, uncomplicated; E78.5 Hyperlipidemia, unspecified; I11.0 Hypertensive heart disease with heart failure; K59.00 Constipation, unspecified; E61.1 Iron deficiency; M47.816 Spondylosis without myelopathy or radiculopathy, lumbar region; M47.812 Spondylosis without myelopathy or radiculopathy, cervical region; E87.5 Hyperkalemia; T50.2X5A Adverse effect of carbonic-anhydrase inhibitors, benzothiadiazides and other diuretics, initial encounter; E87.6 Hypokalemia; Z71.6 Tobacco abuse counseling; Z99.81 Dependence on supplemental oxygen; Z79.01 Long term (current) use of anticoagulants; Z79.82 Long term (current) use of aspirin; Z79.51 Long term (current) use of inhaled steroids; Z79.899 Other long term (current) drug therapy; Z71.41 Alcohol abuse counseling and surveillance of alcoholic; Z87.442 Personal history of urinary calculi; Z91.19 Patient's noncompliance with other medical treatment and regimen; Z87.01 Personal history of pneumonia (recurrent); Z83.3 Family history of diabetes mellitus; Z86.73 Personal history of transient ischemic attack (TIA), and cerebral infarction without residual deficits
CPT/HCPCS: 36415; 71045; 76770; 80048; 80053; 81001; 82272; 82533; 82550; 82553; 82803; 83540; 83550; 83605; 83735; 83880; 84100; 84132; 84443; 84484; 85025; 85027; 85610; 85730; 86850; 86900; 86901; 86920; 87040; 87070; 87077; 87086; 87186; 87205; 93005; 93306; 94640; 94660; 94760; 96365; 96375; 96376; 99285

== ENCOUNTER 2017-10-23 23:32 | Inpatient (IN) | payer MEDICARE ==
[2017-10-23] MEDS ORDERED: ALBUTEROL NEBULIZED 2.5 MG/3 ML INHALATION STA (23:44)
[2017-10-23] MEDS ORDERED: IPRATROPIUM 0.5 MG/2.5 ML NEBU INHALATION STA (23:44)
[2017-10-23] MEDS ORDERED: SODIUM CHLORIDE 0.9% 1,000 ML IV STA (23:44)
[2017-10-23] MEDS ORDERED: methylPREDNISolone SOD SUCCI 125 MG/2 ML VIAL IV STA (23:44)
[2017-10-24] LABS: Anisocytosis Slight; Basophils % (A) 0 %; Eosinophils # (A) 0.2 k/uL (0-0.7); Eosinophils % (A) 1 %; HCT 32.1 % (39.0-53.0); HGB 9.6 gm/dL (13.0-17.5); Hypochromasia Marked; Lymphocytes # (A) 1.2 k/uL (1.0-4.8); Lymphocytes % (A) 11 %; MCH 26.9 pg (25.0-35.0); MCV 89.9 fL (80.0-100.0); Mean Platelet Volume 7.6; Monocytes # (A) 0.8 k/uL (0-1.0); Monocytes % (A) 7 %; Neutrophils # (A) 8.5 k/uL (1.3-7.7); Neutrophils % (A) 79 %; Platelet Count 189 k/uL (150-450); Poikilocytosis Slight; RBC 3.57 m/uL (4.30-5.90); WBC 10.8 k/uL (3.8-10.6)
[2017-10-24 00:08] LABS: ALT 91 U/L (21-72); AST 45 U/L (17-59); Albumin 2.7 g/dL (3.5-5.0); Alkaline Phosphatase 57 U/L (38-126); Anion Gap 8 mmol/L; Blood Urea Nitrogen 12 mg/dL (9-20); Calcium 7.7 mg/dL (8.4-10.2); Carbon Dioxide 30 mmol/L (22-30); Chloride 99 mmol/L (98-107); Glucose 110 mg/dL (74-99); Potassium 3.2 mmol/L (3.5-5.1); Sodium 137 mmol/L (137-145); Total Protein 4.8 g/dL (6.3-8.2)
[2017-10-24 00:11] LABS: Alcohol 112 mg/dL
[2017-10-24 00:22] LABS: Creatine Kinase 23 U/L (55-170)
[2017-10-24 00:23] LABS: INR 1.3 (<1.2); Partial Thromboplastin Time 25.9 sec (22.0-30.0)
[2017-10-24 00:26] LABS: D-Dimer 1.24 mg/L FEU (<0.60)
[2017-10-24 00:35] LABS: Creatine Kinase MB 0.6 ng/mL (0.0-2.4); Troponin I <0.012 ng/mL (0.000-0.034)
--- NOTE | 2017-10-24 01:03 | ED ---
SOB HPI - General Source: patient, EMS Mode of arrival: EMS Limitations: physical limitation <Alejandro Tenorio - Last Filed: 10/24/17 01:04> <Diego Ley - Last Filed: 10/24/17 02:23> - General Chief Complaint: Shortness of Breath Stated Complaint: RAFIQ Time Seen by Provider: 10/23/17 23:40 - History of Present Illness Initial Comments: 72 years old male presents with a shortness of breath and a fever he sat down shortness of breath, worse for about 3 [place] he does have a history of COPD and he has some alcohol today also complaining about the chest pain and chest pain gets worse with the deep breaths and exertion. Denies any headaches no neck stiffness no abdominal pain no frequency urgency dysuria (Alejandro Tenorio) - Related Data Home Medications Medication Instructions Recorded Confirmed Albuterol Sulfate [Proair Hfa] 2 puff INHALATION RT-Q6H PRN 09/14/16 10/24/17 Rivaroxaban [Xarelto] 20 mg PO DAILY 03/28/17 10/24/17 HYDROcodone/APAP 10-325MG [[place] 1 tab PO Q6H PRN 04/13/17 10/24/17 10-325] Ipratropium [place] [Atrovent Hfa] 2 puff INHALATION RT-QID PRN 10/14/17 Ipratropium-Albuterol Nebulize 3 ml INHALATION RT-QID 10/14/17 10/24/17 [Duoneb 0.5 mg-3 mg/3 ml Soln] Aspirin EC [Ecotrin Low Dose] 81 mg PO DAILY 10/24/17 10/24/17 predniSONE See Taper PO DAILY 10/24/17 10/24/17 Previous Rx's Medication Instructions Recorded Amiodarone [Cordarone] 400 mg PO DAILY #30 tab 10/21/17 Amoxicillin/Potassium Clav 1 tab PO Q12HR 5 Days #10 tab 10/21/17 [Augmentin 875-125 Tablet] Budesonide [Pulmicort] 1 mg INHALATION RT-BID #20 nebu 10/21/17 Formoterol Fumarate [Perforomist] 20 mcg INHALATION RT-BID #20 nebu 10/21/17 Metoprolol Tartrate [Lopressor] 75 mg PO TID #90 tab 10/21/17 Nicotine 21Mg/24Hr Patch [Habitrol] 1 patch TRANSDERM DAILY patch 10/21/17 Pravastatin Sodium [Pravachol] 40 mg PO HS #30 tab 10/21/17 Allergies Allergy/AdvReac Type Severity Reaction Status Date / Time cephalexin monohydrate Allergy Rash/Hives Verified 10/24/17 00:11 [From Keflex] Review of Systems ROS Other: All systems not noted in ROS Statement are negative. <Alejandro Tenorio - Last Filed: 10/24/17 01:04> ROS Other: All systems not noted in ROS Statement are negative. <Diego Ley - Last Filed: 10/24/17 02:23> ROS Statement: Those systems with pertinent positive or pertinent negative responses have been documented in the HPI. 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%, history cervical and lumbar spondylosis, carpal tunnel disease, paroxysmal atrial fibrillation, previous hospitalization for alcohol intoxication and altered mentation and previous history of fall with pulmonary contusion and traumatic right-sided fractures, history of delirium tremens, chronic atrial fibrillation, hypertension, hyperlipidemia, previous bouts of pneumonia, previous hospital physician for acute alcohol intoxication, kidney stones, cataracts, degenerative arthritis History of Any Multi-Drug Resistant Organisms: None Reported Past Surgical History: Back Surgery, Hernia Repair Additional Past Surgical History / Comment(s): right shoulder surgery, bilateral cataract surgery, umbilical hernia surgery, kidney stones removal, hammer toe surgery X3 with subsequent amputation of the second toe on right foot , pain injections through neurology, colonoscopy Past Anesthesia/Blood Transfusion Reactions: No Reported Reaction Past Psychological History: No Psychological Hx Reported Smoking Status: Current every day smoker Past Alcohol Use History: Daily Past Drug Use History: None Reported - Past Family History Father Family Medical History: Diabetes Mellitus Mother History Unknown: Yes Additional Family Medical History / Comment(s): 2001 <Alejandro Tenorio - Last Filed: 10/24/17 01:04> General Exam Limitations: physical limitation <Alejandro Tenorio - Last Filed: 10/24/17 01:04> <Diego Ley - Last Filed: 10/24/17 02:23> - General Exam Comments Initial Comments: General: The patient is awake and alert, in great distress Skin: Skin is warm and dry and no rashes or lesions are noted. Eye: Pupils are equal, round and reactive to light, extra-ocular movements are intact; there is normal conjunctiva bilaterally. Ears, nose, mouth and throat: There are moist mucous membranes and no oral lesions. Neck: The neck is supple, there is no tenderness Cardiovascular: Noticed atrial fibrillation with RVR Respiratory: To auscultation bilateral, crackles at the bases bilateral Gastrointestinal: Soft, non-distended, non-tender abdomen without masses or organomegaly noted. There is no rebound or guarding present. Bowel sounds are unremarkable. Back: There is no tenderness to palpation in the midline. There is no obvious deformity. Musculoskeletal: Normal ROM, no tenderness, There is no pedal edema. There is no calf tenderness or swelling. No cords were appreciated. Neurological: CN II-XII intact, Cranial nerves III through XII are intact. There are no obvious motor or sensory deficits. Coordination appears grossly intact. Speech is normal. Psychiatric: Cooperative, (Alejandro Tenorio) Course <Alejandro Tenorio - Last Filed: 10/24/17 01:04> <Diego Ley - Last Filed: 10/24/17 02:23> Vital Signs 10/23/17 10/23/17 10/24/17 23:35 23:55 00:24 Temperature 100.1 F H Pulse Rate 122 H 70 124 H Respiratory 16 Rate Blood Pressure 102/65 O2 Sat by Pulse 99 Oximetry EKG is atrial fibrillation with rapid ventricular response ventricular rate is 121 QRS duration is 128 QT/QTC 380/451 review of this EKG reveals right bundle branch block no ST elevation noticed (Alejandro Tenorio) Medical Decision Making - Lab Data Result diagrams: 10/23/17 23:42 10/23/17 23:42 <Alejandro Tenorio - Last Filed: 10/24/17 01:04> - Lab Data Result diagrams: 10/23/17 23:42 10/23/17 23:42 <Diego Ley - Last Filed: 10/24/17 02:23> - Medical Decision Making Patient's care is signed out awaiting CT angiography. CT angiography is obtained for this patient with cough, fever, and dyspnea. Patient has history of atrial fibrillation, history of COPD, history of CHF. CT angiography is negative for PE, there is bilateral effusions and concern for possible infiltrate. Troponin is negative, BNP is significantly elevated at 8000. Patient is started on Cardizem drip for A. fib with RVR, given Lasix for pulmonary edema. Patient will be admitted for further evaluation treatment. Case discussed with Dr. Trevino, who will accept admission. (Diego Ley) - Lab Data Lab Results 10/23/17 10/23/17 10/23/17 Range/Units 23:42 23:42 23:42 WBC 10.8 H (3.8-10.6) k/uL RBC 3.57 L (4.30-5.90) m/uL Hgb 9.6 L (13.0-17.5) gm/dL Hct 32.1 L (39.0-53.0) % MCV 89.9 (80.0-100.0) fL MCH 26.9 (25.0-35.0) pg MCHC 30.0 L (31.0-37.0) g/dL RDW 19.0 H (11.5-15.5) % Plt Count 189 (150-450) k/uL Neutrophils % 79 % Lymphocytes % 11 % Monocytes % 7 % Eosinophils % 1 % Basophils % 0 % Neutrophils # 8.5 H (1.3-7.7) k/uL Lymphocytes # 1.2 (1.0-4.8) k/uL Monocytes # 0.8 (0-1.0) k/uL Eosinophils # 0.2 (0-0.7) k/uL Basophils # 0.0 (0-0.2) k/uL Hypochromasia Marked Poikilocytosis Slight Anisocytosis Slight PT (9.0-12.0) sec INR (<1.2) APTT (22.0-30.0) sec D-Dimer (<0.60) mg/L FEU Sodium 137 (137-145) mmol/L Potassium 3.2 L (3.5-5.1) mmol/L Chloride 99 (98-107) mmol/L Carbon Dioxide 30 (22-30) mmol/L Anion Gap 8 mmol/L BUN 12 (9-20) mg/dL Creatinine 0.70 (0.66-1.25) mg/dL Est GFR (CKD-EPI)AfAm >90 (>60 ml/min/1.73 sqM) Est GFR (CKD-EPI)NonAf >90 (>60 ml/min/1.73 sqM) Glucose 110 H (74-99) mg/dL Plasma Lactic Acid Elvis (0.7-2.0) mmol/L Calcium 7.7 L (8.4-10.2) mg/dL Total Bilirubin 1.0 (0.2-1.3) mg/dL AST 45 (17-59) U/L ALT 91 H (21-72) U/L Alkaline Phosphatase 57 (38-126) U/L Total Creatine Kinase 23 L (55-170) U/L CK-MB (CK-2) 0.6 (0.0-2.4) ng/mL CK-MB (CK-2) Rel Index 2.6 Troponin I <0.012 (0.000-0.034) ng/mL NT-Pro-B Natriuret Pep pg/mL Total Protein 4.8 L (6.3-8.2) g/dL Albumin 2.7 L (3.5-5.0) g/dL Serum Alcohol 112 mg/dL 10/23/17 10/23/17 10/23/17 Range/Units 23:42 23:42 23:42 WBC (3.8-10.6) k/uL RBC (4.30-5.90) m/uL Hgb (13.0-17.5) gm/dL Hct (39.0-53.0) % MCV (80.0-100.0) fL MCH (25.0-35.0) pg MCHC (31.0-37.0) g/dL RDW (11.5-15.5) % Plt Count (150-450) k/uL Neutrophils % % Lymphocytes % % Monocytes % % Eosinophils % % Basophils % % Neutrophils # (1.3-7.7) k/uL Lymphocytes # (1.0-4.8) k/uL Monocytes # (0-1.0) k/uL Eosinophils # (0-0.7) k/uL Basophils # (0-0.2) k/uL Hypochromasia Poikilocytosis Anisocytosis PT 12.0 (9.0-12.0) sec INR 1.3 H (<1.2) APTT 25.9 (22.0-30.0) sec D-Dimer 1.24 H (<0.60) mg/L FEU Sodium (137-145) mmol/L Potassium (3.5-5.1) mmol/L Chloride (98-107) mmol/L Carbon Dioxide (22-30) mmol/L Anion Gap mmol/L BUN (9-20) mg/dL Creatinine (0.66-1.25) mg/dL Est GFR (CKD-EPI)AfAm (>60 ml/min/1.73 sqM) Est GFR (CKD-EPI)NonAf (>60 ml/min/1.73 sqM) Glucose (74-99) mg/dL Plasma Lactic Acid Elvis 1.9 (0.7-2.0) mmol/L Calcium (8.4-10.2) mg/dL Total Bilirubin (0.2-1.3) mg/dL AST (17-59) U/L ALT (21-72) U/L Alkaline Phosphatase (38-126) U/L Total Creatine Kinase (55-170) U/L CK-MB (CK-2) (0.0-2.4) ng/mL CK-MB (CK-2) Rel Index Troponin I (0.000-0.034) ng/mL NT-Pro-B Natriuret Pep 8410 pg/mL Total Protein (6.3-8.2) g/dL Albumin (3.5-5.0) g/dL Serum Alcohol mg/dL Disposition <Alejandro Tenorio - Last Filed: 10/24/17 01:04> Is patient prescribed a controlled substance at d/c from ED?: No Decision to Admit Reason: Admit from EC Decision Date: 10/24/17 Decision Time: 02:23 <Diego Ley - Last Filed: 10/24/17 02:23> Clinical Impression: Acute exacerbation of chronic obstructive airways disease, CHF (congestive heart failure), NYHA class II, Atrial fibrillation, Anemia, Atrial fibrillation with rapid ventricular response Disposition: ADMITTED IP TO THIS HOSP Condition: Stable Referrals: Darrick Georges MD [Primary Care Provider] - 1-2 days
--- NOTE | 2017-10-24 01:25 | CT ---
EXAMINATION TYPE: CT angio chest DATE OF EXAM: 10/24/2017 1:08 AM COMPARISON: 04/05/2017 HISTORY: SOB; elevated D-dimer CT DLP: 349.70 mGycm Automated exposure control for dose reduction was used. CONTRAST: CTA scan of the thorax is performed with IV Contrast, patient injected with 95 mL of Isovue 370, pulm onary embolism protocol. There are 3-D post processed images.. FINDINGS: There are bilateral pleural effusions larger on the right side. There is aneurysm of ascending aorta measures 4.5 cm. There is no sign of dissection. Heart is enlarged. There is small pericardial effusi on. I see no filling defects in the pulmonary arteries. There are a few mediastinal and bronchial lym ph nodes that measure up to 1 cm. IMPRESSION: NO EVIDENCE OF PULMONARY EMBOLISM. ASCENDING AORTIC ANEURYSM. THIS APPEARS UNCHANGED. THERE IS NEW BI LATERAL PLEURAL EFFUSIONS AND BASILAR INFILTRATE AND ATELECTASIS COMPARED TO OLD EXAM. SMALL PERICARD IAL EFFUSION.
[2017-10-24] MEDS ORDERED: FUROSEMIDE 10 MG/ML 4 ML VIAL IV STA (02:13)
[2017-10-24] MEDS ORDERED: DILTIAZEM DRIP BOLUS FROM BAG 1 MG SOLN IV ONE (02:16)
[2017-10-24] MEDS ORDERED: NALOXONE 0.4 MG/ML 1 ML VIAL IV PRN (02:17)
[2017-10-24] MEDS: DILTIAZEM 50 MG in SODIUM CHLORIDE 0.9% 40 ML IV SCH ×3 (02:55→18:47)
[2017-10-24] MEDS ORDERED: POTASSIUM CHLORIDE ER 20 MEQ TAB.ER PO STA (06:37)
[2017-10-24] MEDS ORDERED: LORazepam 2 MG/ML INJ IV PRN ×3 (06:57)
[2017-10-24] MEDS ORDERED: THIAMINE 100 MG/ML 2 ML VIAL IM STA (06:57)
--- NOTE | 2017-10-24 06:57 | P.HPIM ---
History of Present Illness H&P Date: 10/24/17 Chief Complaint: Shortness of breath 72-year-old male with history of paroxysmal A. 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 Patient had a prolonged hospital course and was discharged 2 days ago for which she was admitted for COPD exacerbation and A. fib with RVR he was also found during that hospital stay to have worsening Ventricular ejection fraction and alcoholic cardiomyopathy. Patient admitted that since discharge 2 days ago he didn't take any of his medications. He was also found to be drinking. Patient presented to the hospital due to heart racing and shortness of breath he was found to be back in A. fib with RVR. He denies any chest pain however admits to shortness of breath. From further evaluation in the ER he was found to be in acute CHF exacerbation. Patient denies any GI bleeding at this time, denies any nausea or vomiting. He admits to drinking alcohol. Denies any abdominal pain.denies any focal neurologic deficits denies any vision or hearing changes. In the emergency department he was started on Cardizem for A. fib with RVR this will be weaned off. Patient to resume his amiodarone, and will be started on aggressive IV diuresis. Review of Systems Pertinent positives as noted in HPI. All other systems were reviewed and are negative 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%, history cervical and lumbar spondylosis, carpal tunnel disease, paroxysmal atrial fibrillation, previous hospitalization for alcohol intoxication and altered mentation and previous history of fall with pulmonary contusion and traumatic right-sided fractures, history of delirium tremens, chronic atrial fibrillation, hypertension, hyperlipidemia, previous bouts of pneumonia, previous hospital physician for acute alcohol intoxication, kidney stones, cataracts, degenerative arthritis History of Any Multi-Drug Resistant Organisms: None Reported Past Surgical History: Back Surgery, Hernia Repair Additional Past Surgical History / Comment(s): right shoulder surgery, bilateral cataract surgery, umbilical hernia surgery, kidney stones removal, hammer toe surgery X3 with subsequent amputation of the second toe on right foot , pain injections through neurology, colonoscopy Past Anesthesia/Blood Transfusion Reactions: No Reported Reaction Past Psychological History: No Psychological Hx Reported Additional Psychological History / Comment(s): Lives with friend, Bekah Arriaga. she lives in the upstairs of his home. Smoking Status: Current every day smoker Past Alcohol Use History: Daily Additional Past Alcohol Use History / Comment(s): Smokes 1 PPD, USUALLY DRINKS "at least" A FIFTH OF VODKA BETWEEN 9PM-MIDNIGHT DAILY Past Drug Use History: None Reported - Past Family History Father Family Medical History: Diabetes Mellitus Mother History Unknown: Yes Additional Family Medical History / Comment(s): 2001 Medications and Allergies Home Medications Medication Instructions Recorded Confirmed Type Albuterol Sulfate [Proair Hfa] 2 puff INHALATION RT-Q6H PRN 09/14/16 10/24/17 History Rivaroxaban [Xarelto] 20 mg PO DAILY 03/28/17 10/24/17 History HYDROcodone/APAP 10-325MG [[place] 1 tab PO Q6H PRN 04/13/17 10/24/17 History 10-325] Ipratropium [place] [Atrovent Hfa] 2 puff INHALATION RT-QID PRN 10/14/17 History Ipratropium-Albuterol Nebulize 3 ml INHALATION RT-QID 10/14/17 10/24/17 History [Duoneb 0.5 mg-3 mg/3 ml Soln] Amiodarone [Cordarone] 400 mg PO DAILY #30 tab 10/21/17 10/24/17 Rx Amoxicillin/Potassium Clav 1 tab PO Q12HR 5 Days #10 tab 10/21/17 10/24/17 Rx [Augmentin 875-125 Tablet] Budesonide [Pulmicort] 1 mg INHALATION RT-BID #20 nebu 10/21/17 10/24/17 Rx Formoterol Fumarate [Perforomist] 20 mcg INHALATION RT-BID #20 nebu 10/21/17 Rx Metoprolol Tartrate [Lopressor] 75 mg PO TID #90 tab 10/21/17 10/24/17 Rx Nicotine 21Mg/24Hr Patch [Habitrol] 1 patch TRANSDERM DAILY patch 10/21/17 Rx Pravastatin Sodium [Pravachol] 40 mg PO HS #30 tab 10/21/17 10/24/17 Rx Aspirin EC [Ecotrin Low Dose] 81 mg PO DAILY 10/24/17 10/24/17 History predniSONE See Taper PO DAILY 10/24/17 10/24/17 History Allergies Allergy/AdvReac Type Severity Reaction Status Date / Time cephalexin monohydrate Allergy Rash/Hives Verified 10/24/17 00:11 [From Keflex] Physical Exam Vitals: Vital Signs Temp Pulse Pulse Resp BP BP Pulse Ox 10/24/17 04:00 97.6 F 114 H 19 150/53 95 10/24/17 03:00 122 H 17 115/59 96 10/24/17 02:34 97.6 F 114 H 19 150/53 95 10/24/17 00:24 124 H 10/23/17 23:55 70 10/23/17 23:35 100.1 F H 122 H 16 102/65 99 Intake and Output 10/23/17 10/23/17 10/24/17 14:59 22:59 06:59 Output Total 400 Balance -400 Output: Urine 400 Other: Voiding Method Urinal Weight 77.5 kg Constitutional: No acute distress, conversant, pleasant Eyes: Anicteric sclerae, moist conjunctiva, no lid-lag Pupils equal round reactive to light ENMT: NC/AT Oropharynx clear, no erythema, or exudates Neck: Supple, FROM, no masses, or JVD No carotid bruits No thyromegaly Lungs: Poor breath sounds bilaterally with diffuse crackles and diminished breath sounds at lung basis bilaterally Clear to percussion Normal respiratory effort, no accessory muscle use Cardiovascular: Heart irregular, tachycardia No murmurs, gallops, or rubs Bilateral peripheral edema +1 Abdominal: Soft Nontender, no guarding, rebound or rigidity Abdomen moving with respiration Normoactive bowel sounds No hepatomegaly, No splenomegaly No palpable mass No abdominal wall hernia noted Skin: Normal temperature, tone, texture, turgor No induration No subcutaneous nodules No rash, lesions No ulcers Extremities: No digital cyanosis No clubbing Pedal pulses intact and symmetrical Radial pulses intact and symmetrical No calf tenderness Psychiatric: Alert and oriented to person, place and time Flat affect fair judgment Neuro Muscles Strength 4/5 in all 4 extremities Sensation to light touch grossly present throughout Cranial nerves II-XII grossly intact No focal sensory deficits Lymphatics: no palpable cervical or supraclavicular , or inguinal lymph nodes Results CBC & Chem 7: 10/23/17 23:42 10/23/17 23:42 Labs: Abnormal Lab Results - Last 24 Hours (Table) 10/23/17 10/23/17 10/23/17 Range/Units 23:42 23:42 23:42 WBC 10.8 H (3.8-10.6) k/uL RBC 3.57 L (4.30-5.90) m/uL Hgb 9.6 L (13.0-17.5) gm/dL Hct 32.1 L (39.0-53.0) % MCHC 30.0 L (31.0-37.0) g/dL RDW 19.0 H (11.5-15.5) % Neutrophils # 8.5 H (1.3-7.7) k/uL INR (<1.2) D-Dimer (<0.60) mg/L FEU Potassium 3.2 L (3.5-5.1) mmol/L Glucose 110 H (74-99) mg/dL Calcium 7.7 L (8.4-10.2) mg/dL ALT 91 H (21-72) U/L Total Creatine Kinase 23 L (55-170) U/L Total Protein 4.8 L (6.3-8.2) g/dL Albumin 2.7 L (3.5-5.0) g/dL 10/23/17 Range/Units 23:42 WBC (3.8-10.6) k/uL RBC (4.30-5.90) m/uL Hgb (13.0-17.5) gm/dL Hct (39.0-53.0) % MCHC (31.0-37.0) g/dL RDW (11.5-15.5) % Neutrophils # (1.3-7.7) k/uL INR 1.3 H (<1.2) D-Dimer 1.24 H (<0.60) mg/L FEU Potassium (3.5-5.1) mmol/L Glucose (74-99) mg/dL Calcium (8.4-10.2) mg/dL ALT (21-72) U/L Total Creatine Kinase (55-170) U/L Total Protein (6.3-8.2) g/dL Albumin (3.5-5.0) g/dL Thrombosis Risk Factor Assmnt - Choose All That Apply Any of the Below Risk Factors Present?: Yes Each Factor Represents 1 point: Swollen legs (current) Other Risk Factors: Yes Each Risk Factor Represents 2 Points: Age 61-74 years Thrombosis Risk Factor Assessment Total Risk Factor Score: 3 Thrombosis Risk Factor Assessment Level: Moderate Risk Assessment and Plan Assessment: 72-year-old male with history of paroxysmal A. fib COPD and alcoholic cardiomyopathy. Patient is admitted with expected length of stay of over 48 hours due to A. fib with RVR, shortness of breath secondary to acute systolic CHF since innervation these are all secondary to noncompliance with medications and alcohol abuse. Patient was discharged 2 days ago from the hospital however he admitted to not taking any of his medications, and he was also found with elevated alcohol level Plan: #Difficulty breathing secondary to multifactorial acute CHF exacerbation and A. fib with RVR Acute systolic CHF exacerbation, alcoholic cardiomyopathy, secondary to noncompliance Paroxysmal A. fib currently with rapid ventricular response Patient started on Cardizem drip in the ED, this will be weaned off Continue with amiodarone IV diuresis 40 mg of Lasix twice a day Continue metoprolol Discussed with cardiology starting the patient on UMA inhibitor, Aldactone, and evaluate for LifeVest due to advanced CHF Cardiology consult Continue xarelto #COPD on home oxygen 3 L nasal cannula, with recent acute exacerbation patient was discharged 2 days ago Continue with DuoNeb's when necessary LABA/ICS inhalers Continue with home oxygen Systemic steroids Counseled again to quit smoking #Acute moderate alcohol intoxication Patient counseled to strictly abstain from alcohol Monitor for signs and symptoms of withdrawal however patient has been discharged 2 days ago and had a prolonged hospital stay prior to that Benzos per [facility] Thiamine and folic acid #Chronic anemia secondary to recent mild GI bleed Currently his hemoglobin continues to show improvement compared to his prior hospital stay Patient denies any GI bleeding at this time Continue to monitor closely GI evaluated the patient during last day no recommendations for endoscopy DVT prophylaxis currently on xarelto Hypokalemia replace by mouth Hyperlipidemia continue with statin Diet as tolerated Preformed a thorough record review from recent hospitalization patient had a prolonged hospital stay and was discharged 2 days ago where he was admitted for A. fib with RVR shortness of breath due to acute COPD exacerbation and worsening of his CHF he also had some GI bleeding during that hospital stay for which she required blood transfusion Surrogate decision-maker: Pamela CODE STATUS: Full code Discussed with: Patient, ER, RN Anticipated discharge: 48-[address]: Consideration should be made for [facility] placement due to recurrent admission and medication noncompliance A total of 50 minutes was spent on the care of this complex patient more than 50 % of the time was spent in counseling and care coordination.
[2017-10-24] MEDS: methylPREDNISolone SOD SUCCI 125 MG/2 ML VIAL IV SCH ×4 (07:01→23:52)
[2017-10-24] MEDS: IPRATROPIUM-ALBUTEROL 3 ML NEB INHALATION SCH ×4 (08:00→21:20)
[2017-10-24] MEDS ORDERED: predniSONE 10 MG TAB PO SCH (09:00)
[2017-10-24] MEDS: AMIODARONE 200 MG TAB PO SCH (09:59)
[2017-10-24] MEDS: RIVAROXABAN 20 MG TAB PO SCH (09:59)
[2017-10-24] MEDS: ASPIRIN 81 MG PO SCH (09:59)
[2017-10-24] MEDS: METOPROLOL TARTRATE 50 MG TAB PO SCH ×3 (09:59→20:41)
[2017-10-24] MEDS: NICOTINE 21MG/24HR PATCH TRANSDERM SCH (09:59)
[2017-10-24] MEDS: AMOXIC-POT CLAV 875-125MG 1 EACH TAB PO SCH ×2 (09:59→20:40)
[2017-10-24] MEDS: HYDROcodone/APAP 10-325MG 1 EACH TAB PO PRN (10:03)
--- NOTE | 2017-10-24 10:48 | CONS ---
CONSULTATION CHIEF COMPLAINT: Atrial fibrillation with rapid ventricular rate. Juan Carlos is a 72-year-old gentleman with history of severe COPD, paroxysmal atrial fibrillation, hypertension and dyslipidemia who presented to hospital complaining of shortness of breath and palpitations. He was found to be in atrial fibrillation with rapid ventricular rate for which Cardiology has been consulted. At the time of my evaluation, the patient is on IV Cardizem and Xarelto. Heart rate is somewhat better controlled. He also had a CT scan of the chest done on presentation, which did not reveal any evidence of pulmonary embolism. It does show an aneurysm at the ascending aorta that measures about 4.5 cm. PAST MEDICAL HISTORY: Significant for atrial fibrillation, COPD, hypertension, dyslipidemia, history of alcoholism and alcoholic cardiomyopathy. MEDICATIONS: The patient is on albuterol, Xarelto, [place], Atrovent. ALLERGIC: KEFLEX. FAMILY HISTORY: Negative for premature coronary artery disease. SOCIAL HISTORY: Significant for smoking, EtOH abuse. REVIEW OF SYSTEMS: HEENT is unremarkable. CARDIAC: As described above. RESPIRATORY: As described above. GI: Negative. GENITOURINARY: Negative. ALLERGY/IMMUNOLOGY: Negative. MUSCULOSKELETAL: Significant for arthritis. PSYCHOSOCIAL: Negative. ENDOCRINE: Negative. DERMATOLOGICAL: Negative. CONSTITUTIONAL: Negative. ONCOLOGICAL: Negative. Rest of the system review is not relevant. PHYSICAL EXAM: Heart rate is 110 beats per minute. Blood pressure is 150/50, respirations 18, O2 sat is 95% on 3 L. There is no jugular venous distention. Chest exam reveals bilateral occasional rhonchi. Heart exam reveals first and second heart sounds, irregular rhythm and a systolic murmur at the left lower sternal border. Abdomen is soft. Exam of the extremities reveals 1+ edema bilaterally. LABS: Show a hemoglobin of 9.6, platelet count is 189,000, creatinine is 0.78. BNP is elevated at 8410. An echocardiogram shows severe LV systolic dysfunction. ASSESSMENT: 1. Acute exacerbation of chronic systolic heart failure. 2. Chronic atrial fibrillation with poorly controlled ventricular rate. 3. Chronic obstructive pulmonary disease. 4. History of alcoholism. PLAN: Continue the IV Cardizem. Continue the amiodarone. Continue the beta-blockers and the anticoagulant along with the IV Lasix and we will adjust therapies as he responds to treatments. MMODL / IJN: [id number] /
[2017-10-24] MEDS: FUROSEMIDE 10 MG/ML 4 ML VIAL IV SCH ×2 (11:30→20:40)
[2017-10-24] MEDS: BUDESONIDE 1 MG/2 ML NEBU INHALATION SCH ×2 (11:39→21:20)
[2017-10-24] MEDS: FORMOTEROL FUMARATE 20 MCG/2 ML NEBU INHALATION SCH ×2 (11:39→21:20)
[2017-10-24] MEDS: THIAMINE 100 MG TAB PO SCH (16:57)
[2017-10-24] MEDS: PRAVASTATIN SODIUM 40 MG TAB PO SCH (20:40)
[2017-10-24 21:05] LABS: Glucose,Whole Blood 335 mg/dL (75-99)
[2017-10-24] MEDS: INSULIN DETEMIR 100 UNIT/ML 10 ML VIAL SQ SCH (23:52)
[2017-10-24] MEDS: INSULIN ASPART 100 UNIT/ML 1 ML 10 ML VIAL SQ SCH (23:53)
[2017-10-25] MEDS: IPRATROPIUM-ALBUTEROL 3 ML NEB INHALATION SCH ×5 (05:08→20:16)
[2017-10-25 06:16] LABS: Glucose,Whole Blood 172 mg/dL (75-99)
[2017-10-25] MEDS: methylPREDNISolone SOD SUCCI 125 MG/2 ML VIAL IV SCH ×3 (06:41→17:45)
[2017-10-25] MEDS: INSULIN ASPART 100 UNIT/ML 1 ML 10 ML VIAL SQ SCH ×5 (06:41→22:01)
[2017-10-25] MEDS ORDERED: INSULIN ASPART 100 UNIT/ML 1 ML 10 ML VIAL SQ SCH (07:30)
[2017-10-25] MEDS: FORMOTEROL FUMARATE 20 MCG/2 ML NEBU INHALATION SCH ×2 (08:33→20:16)
[2017-10-25] MEDS: BUDESONIDE 1 MG/2 ML NEBU INHALATION SCH ×2 (08:33→20:16)
[2017-10-25] MEDS: DILTIAZEM 50 MG in SODIUM CHLORIDE 0.9% 40 ML IV SCH ×4 (09:03→20:02)
[2017-10-25] MEDS: NICOTINE 21MG/24HR PATCH TRANSDERM SCH (09:04)
[2017-10-25] MEDS: RIVAROXABAN 20 MG TAB PO SCH (09:05)
[2017-10-25] MEDS: AMIODARONE 200 MG TAB PO SCH (09:05)
[2017-10-25] MEDS: AMOXIC-POT CLAV 875-125MG 1 EACH TAB PO SCH ×2 (09:05→19:59)
[2017-10-25] MEDS: ASPIRIN 81 MG PO SCH (09:05)
[2017-10-25] MEDS: METOPROLOL TARTRATE 50 MG TAB PO SCH ×3 (09:06→19:59)
[2017-10-25] MEDS: FUROSEMIDE 10 MG/ML 4 ML VIAL IV SCH ×2 (09:07→19:59)
[2017-10-25] MEDS: HYDROcodone/APAP 10-325MG 1 EACH TAB PO PRN ×2 (09:22→17:47)
[2017-10-25] MEDS: THIAMINE 100 MG TAB PO SCH ×2 (09:24→17:44)
--- NOTE | 2017-10-25 10:53 | P.PN ---
Subjective Progress Note Date: 10/25/17 This is a pleasant 72-year-old gentleman with a past medical history significant for severe cardiomyopathy with known EF around 20%, paroxysmal atrial fibrillation, as well as multiple comorbid conditions, was admitted to the hospital was congestive heart failure secondary to systolic dysfunction. The patient presented to the hospital with progressive dyspnea. Also he was found to be in A. fib with RVR. I'll follow-up with him today, he continues to have shortness of breath. He is on Lasix IV and also he is on Cardizem IV for heart rate control. He is on oral anticoagulation. I am going to give the patient on the current dose of Lasix IV. He still have a lot of crackles in his lungs bilaterally. I will obtain a CBC and BMP on him as well. Continue the Cardizem drip at 5 mg per hour. He is on high dose of metoprolol which would continue and also he is on amiodarone. Objective - Vital Signs Vital signs: Vital Signs Temp 98.6 F 10/25/17 08:00 Pulse 100 10/25/17 09:00 Resp 18 10/25/17 08:00 BP 112/85 10/25/17 08:00 Pulse Ox 100 10/25/17 08:00 Intake & Output 10/24/17 10/25/17 10/25/17 18:59 06:59 18:59 Intake Total 1309.334 50 240 Output Total 600 Balance 709.334 50 240 Weight 74.5 kg Intake: IV 400 Sodium Chloride 0.9% 1, 400 000 ml @ 50 mls/hr IV . Q20H STA Rx#:[id number] Intake, IV Titration 79.334 50 Amount Diltiazem 50 mg In Sodium 79.334 50 Chloride 0.9% 40 ml @ 5 MG/HR 5 mls/hr IV .Q10H LUKASZ Rx#:[id number] Oral 830 240 Output: Urine 600 Other: Voiding Method Urinal Urinal # Voids 2 # Bowel Movements 2 - Constitutional General appearance: Present: no acute distress - Respiratory Respiratory: bilateral: rales - Cardiovascular Rhythm: irregularly irregular Heart sounds: normal: S1, S2 - Labs CBC & Chem 7: 10/23/17 23:42 10/23/17 23:42 Labs: Abnormal Lab Results - Last 24 Hours (Table) 10/24/17 10/25/17 Range/Units 21:04 06:05 POC Glucose (mg/dL) 335 H 172 H (75-99) mg/dL Microbiology - Last 24 Hours (Table) 10/23/17 23:42 Blood Culture - Preliminary Blood No Growth after 24 hours Assessment and Plan Assessment: Assessment #1 acute on chronic respiratory failure #2 congestive heart failure exacerbation secondary to systolic dysfunction #3 atrial fibrillation was uncontrolled heart rate #4 severe cardiomyopathy with EF of 20%. Plan #1 continue the current medical regimen including the Lasix IV and Cardizem IV #2 monitor the kidney function and electrolytes #3 follow-up with the patient. Thank you for allowing us participate in his care
[2017-10-25 11:03] VITALS: BMI 22.2
[2017-10-25 11:29] LABS: Glucose,Whole Blood 210 mg/dL (75-99)
[2017-10-25 11:48] LABS: Hemoglobin A1C 5.3 % (4.0-6.0)
[2017-10-25 16:40] LABS: Glucose,Whole Blood 356 mg/dL (75-99)
[2017-10-25] MEDS: PRAVASTATIN SODIUM 40 MG TAB PO SCH (19:59)
[2017-10-25 20:01] LABS: Glucose,Whole Blood 336 mg/dL (75-99)
--- NOTE | 2017-10-25 20:35 | PN ---
PROGRESS NOTE DATE OF SERVICE: 10/25/2017 PRESENTING COMPLAINT: Short of breath. INTERVAL HISTORY: Patient admitted with atrial fibrillation with rapid ventricular rate and CHF exacerbation, remains on IV Lasix and Cardizem drip. Heart has been in the 90s to 100 today. Did tolerate some diet, does feel tired and run down. Patient has continued to smoke and drink alcohol at home. REVIEW OF SYSTEMS: Done for constitutional, cardiovascular, GI, pulmonary; relevant findings as above. CURRENT MEDICATIONS: Reviewed that include: 1. P.o. amiodarone. 2. IV Cardizem drip. 3. IV Lasix and. 4. IV Solu-Medrol. EXAMINATION: Temperature 97.2, pulse 90, respirations 18, blood pressure 103/69, pulse ox 98% on 3L. GENERAL APPEARANCE: Propped up in bed, a bit unkempt, tired-appearing. EYES: Pupils equal. Conjunctivae pale. HEENT: External nose and ears normal. Oral cavity: Some missing dentition. NECK: JVD unable to assess. Mass not palpable. RESPIRATORY: Effort increased. LUNGS: Decreased breath sounds. Some wheezing. CARDIOVASCULAR: Heart sounds irregular. Minimal edema. ABDOMEN: Soft, nontender. Liver and spleen not palpable. PSYCHIATRY: Alert and oriented x3. Mood and affect slightly anxious-appearing. INVESTIGATIONS: Accu-Cheks are 210, 356, 336. Telemetry shows A. fib. ASSESSMENT: 1. Acute on chronic atrial fibrillation with rapid ventricular rate. 2. Chronic hypoxic respiratory failure from underlying chronic obstructive pulmonary disease. 3. Hyperlipidemia. 4. Essential hypertension. 5. Hypertensive heart disease. 6. Chronic nicotine dependence. Patient is a current cigarette smoker. 7. Acute on chronic congestive heart failure exacerbation from systolic dysfunction, ejection fraction 20% from alcoholic cardiomyopathy. 8. Chronic alcohol dependence. 9. Acute chronic obstructive pulmonary disease exacerbation in a current smoker. 10.Hyperglycemia secondary to IV steroids. PLAN: Will continue with steroids. Will cut back on patient's Solu-Medrol. The patient is already on Xarelto. Keep the patient on IV Cardizem drip. Continue bronchodilators. The patient will need at least 48 hours more in the hospital. He is still quite shaky and short of breath. Continue on IV Lasix. MMODL / IJN: [id number] /
[2017-10-25] MEDS: DIPHENOX-ATROP 2.5-0.025 MG 1 EACH TAB PO PRN (22:01)
[2017-10-25] MEDS: predniSONE 20 MG TAB PO SCH (22:01)
[2017-10-25] MEDS: INSULIN DETEMIR 100 UNIT/ML 10 ML VIAL SQ SCH (22:02)
[2017-10-26 06:10] LABS: Glucose,Whole Blood 187 mg/dL (75-99)
[2017-10-26] MEDS: DILTIAZEM 50 MG in SODIUM CHLORIDE 0.9% 40 ML IV SCH (06:58)
[2017-10-26] MEDS: INSULIN ASPART 100 UNIT/ML 1 ML 10 ML VIAL SQ SCH ×4 (07:01→22:03)
[2017-10-26 07:25] LABS: Anion Gap 7 mmol/L; Blood Urea Nitrogen 31 mg/dL (9-20); Calcium 7.4 mg/dL (8.4-10.2); Carbon Dioxide 35 mmol/L (22-30); Chloride 92 mmol/L (98-107); Glucose 154 mg/dL (74-99); Sodium 134 mmol/L (137-145)
[2017-10-26] MEDS: FORMOTEROL FUMARATE 20 MCG/2 ML NEBU INHALATION SCH ×2 (08:23→20:03)
[2017-10-26] MEDS: IPRATROPIUM-ALBUTEROL 3 ML NEB INHALATION SCH ×4 (08:23→20:05)
[2017-10-26] MEDS: BUDESONIDE 1 MG/2 ML NEBU INHALATION SCH ×2 (08:23→20:03)
[2017-10-26] MEDS: ASPIRIN 81 MG PO SCH (08:57)
[2017-10-26] MEDS: METOPROLOL TARTRATE 50 MG TAB PO SCH ×2 (08:57→22:02)
[2017-10-26] MEDS: AMOXIC-POT CLAV 875-125MG 1 EACH TAB PO SCH ×2 (08:57→22:02)
[2017-10-26] MEDS: FUROSEMIDE 10 MG/ML 4 ML VIAL IV SCH ×2 (08:58→22:03)
[2017-10-26] MEDS: NICOTINE 21MG/24HR PATCH TRANSDERM SCH (08:58)
[2017-10-26] MEDS: THIAMINE 100 MG TAB PO SCH ×2 (08:58→15:40)
[2017-10-26] MEDS: AMIODARONE 200 MG TAB PO SCH (08:59)
[2017-10-26] MEDS: RIVAROXABAN 20 MG TAB PO SCH (08:59)
[2017-10-26] MEDS: predniSONE 20 MG TAB PO SCH (08:59)
[2017-10-26] MEDS: HYDROcodone/APAP 10-325MG 1 EACH TAB PO PRN ×3 (09:03→22:04)
[2017-10-26] MEDS: DIPHENOX-ATROP 2.5-0.025 MG 1 EACH TAB PO PRN (09:06)
[2017-10-26] MEDS ORDERED: POTASSIUM CHLORIDE ER 20 MEQ TAB.ER PO STA (10:51)
[2017-10-26] MEDS: POTASSIUM CHLORIDE ER 20 MEQ TAB.ER PO SCH (11:20)
[2017-10-26] MEDS: MAGNESIUM OXIDE 400 MG TAB PO SCH ×3 (11:20→22:03)
[2017-10-26 11:33] LABS: Glucose,Whole Blood 272 mg/dL (75-99)
[2017-10-26] MEDS ORDERED: METOPROLOL TARTRATE 25 MG TAB PO STA (14:22)
--- NOTE | 2017-10-26 14:23 | P.PN ---
Subjective Progress Note Date: 10/26/17 This is a pleasant 72-year-old gentleman with a past medical history significant for severe cardiomyopathy with known EF around 20%, paroxysmal atrial fibrillation, as well as multiple comorbid conditions, was admitted to the hospital was congestive heart failure secondary to systolic dysfunction. The patient presented to the hospital with progressive dyspnea. Also he was found to be in A. fib with RVR. I'll follow-up with him today, overall he is feeling better. The shortness of breath has improved. He still in A. fib with slightly uncontrolled heart rate. He is on Cardizem and drip at 5 mg per hour and he is on metoprolol 75 mg by mouth 3 times a day. I am going to increase the dose of metoprolol 200 mg by mouth twice a day.I will DC the Cardizem and drip. The patient possibly can be going home today. Objective - Vital Signs Vital signs: Vital Signs Temp 98.4 F 10/26/17 12:00 Pulse 92 10/26/17 12:14 Resp 18 10/26/17 12:00 BP 114/68 10/26/17 12:00 Pulse Ox 97 10/26/17 12:00 Intake & Output 10/25/17 10/26/17 10/26/17 18:59 06:59 18:59 Intake Total 973.333 50 360 Output Total 900 800 Balance 73.333 50 -440 Weight 74.5 kg 74.2 kg Intake: Intake, IV Titration 13.333 50 Amount Diltiazem 50 mg In Sodium 13.333 Chloride 0.9% 40 ml @ 5 MG/HR 5 mls/hr IV .Q10H LUKASZ Rx#:[id number] Diltiazem 50 mg In Sodium 50 Chloride 0.9% 40 ml @ 5 MG/HR 5 mls/hr IV .Q10H LUKASZ Rx#:[id number] Oral 960 360 Output: Urine 900 800 Other: Voiding Method Urinal Urinal Urinal # Voids 3 - Constitutional General appearance: Present: no acute distress - Respiratory Respiratory: bilateral: diminished - Cardiovascular Rhythm: irregularly irregular Heart sounds: normal: S1, S2 - Labs CBC & Chem 7: 10/23/17 23:42 10/26/17 06:39 Labs: Abnormal Lab Results - Last 24 Hours (Table) 10/25/17 10/25/17 10/26/17 Range/Units 16:38 19:58 06:04 Sodium (137-145) mmol/L Potassium (3.5-5.1) mmol/L Chloride (98-107) mmol/L Carbon Dioxide (22-30) mmol/L BUN (9-20) mg/dL Glucose (74-99) mg/dL POC Glucose (mg/dL) 356 H 336 H 187 H (75-99) mg/dL Calcium (8.4-10.2) mg/dL Magnesium (1.6-2.3) mg/dL 10/26/17 10/26/17 10/26/17 Range/Units 06:39 06:39 11:20 Sodium 134 L (137-145) mmol/L Potassium 3.0 L* (3.5-5.1) mmol/L Chloride 92 L (98-107) mmol/L Carbon Dioxide 35 H (22-30) mmol/L BUN 31 H (9-20) mg/dL Glucose 154 H (74-99) mg/dL POC Glucose (mg/dL) 272 H (75-99) mg/dL Calcium 7.4 L (8.4-10.2) mg/dL Magnesium 1.4 L (1.6-2.3) mg/dL Microbiology - Last 24 Hours (Table) 10/23/17 23:42 Blood Culture - Preliminary Blood No Growth after 48 hours Assessment and Plan Assessment: Assessment #1 acute on chronic respiratory failure #2 congestive heart failure exacerbation secondary to systolic dysfunction #3 atrial fibrillation was uncontrolled heart rate #4 severe cardiomyopathy with EF of 20%. Plan #1 increase the metoprolol by mouth and DC the Cardizem drip #2 the patient can be discharged home. Thank you for allowing us participate in his care
[2017-10-26 16:37] LABS: Glucose,Whole Blood 251 mg/dL (75-99)
[2017-10-26 21:50] LABS: Glucose,Whole Blood 263 mg/dL (75-99)
[2017-10-26] MEDS: PRAVASTATIN SODIUM 40 MG TAB PO SCH (22:03)
[2017-10-26] MEDS: INSULIN DETEMIR 100 UNIT/ML 10 ML VIAL SQ SCH (22:03)
[2017-10-27] MEDS ORDERED: IPRATROPIUM-ALBUTEROL 3 ML NEB INHALATION PRN (02:05)
[2017-10-27 06:13] LABS: Glucose,Whole Blood 116 mg/dL (75-99)
[2017-10-27] MEDS: INSULIN ASPART 100 UNIT/ML 1 ML 10 ML VIAL SQ SCH ×2 (06:18→12:41)
[2017-10-27] MEDS: HYDROcodone/APAP 10-325MG 1 EACH TAB PO PRN ×2 (06:19→12:48)
--- NOTE | 2017-10-27 07:05 | PN ---
PROGRESS NOTE DATE OF SERVICE: 10/26/17. PRESENTING COMPLAINT: Short of breath. INTERVAL HISTORY: Patient is admitted with atrial fibrillation uncontrolled, CHF exacerbation. Patient continues to smoke and drink alcohol. The patient this morning was on IV Lasix and Cardizem drip. Breathing is better. Did tolerate a diet. Did get to the bedside chair. REVIEW OF SYSTEMS: Done for constitutional, cardiovascular, GI, pulmonary; relevant findings above. CURRENT MEDICATIONS: Include IV Lasix and IV Cardizem. PHYSICAL EXAMINATION: Temperature 98.4, pulse 83, respiratory 18, blood pressure 104/68, pulse ox 97% on room air. GENERAL APPEARANCE: Sitting up, more awake. EYES: Pupils equal. Conjunctivae normal. HEENT: External appearance of nose and ears normal. Oral cavity, missing teeth. NECK: JVD unable to assess. Mass not palpable. RESPIRATORY: Effort increased. Lungs, improved air entry. Decreased wheezing. CARDIOVASCULAR: Heart sounds irregular, minimal edema. ABDOMEN: Soft, nontender. Liver and spleen not palpable. PSYCHIATRY: Alert and oriented x3. Mood and affect normal. INVESTIGATIONS: Potassium 3, BUN 31, creatinine 0.68. ASSESSMENT: 1. Persistent atrial fibrillation with rapid ventricular rate, on presentation, now better controlled. 2. Chronic hypoxic respiratory failure with underlying chronic obstructive pulmonary disease. 3. Hyperlipidemia. 4. Essential hypertension. 5. Hypertensive heart disease. 6. Chronic nicotine dependence, patient is a cigarette smoker. 7. Acute on chronic congestive heart failure exacerbation from systolic dysfunction, ejection fraction 20% from alcoholic cardiomyopathy. 8. Acute chronic obstructive pulmonary disease exacerbation in a current smoker. 9. Chronic alcohol dependence. 10.Hyperglycemia secondary to IV steroids. PLAN: Continue medication and treatment plan. Later in the afternoon Dr. Fritz did DC the Cardizem and increased the patient's dose of beta chidi. The patient remains on IV Lasix. Will switch the patient to p.o. Lasix. We will see how the patient does overnight. Probably discharge tomorrow. MMODL / IJN: [id number] /
[2017-10-27] MEDS: FORMOTEROL FUMARATE 20 MCG/2 ML NEBU INHALATION SCH (08:42)
[2017-10-27] MEDS: BUDESONIDE 1 MG/2 ML NEBU INHALATION SCH (08:42)
[2017-10-27] MEDS: IPRATROPIUM-ALBUTEROL 3 ML NEB INHALATION SCH ×3 (08:42→16:16)
[2017-10-27] MEDS ORDERED: FUROSEMIDE 40 MG TAB PO SCH (09:00)
[2017-10-27] MEDS ORDERED: SPIRONOLACTONE 25 MG TAB PO SCH (09:00)
[2017-10-27] MEDS: NICOTINE 21MG/24HR PATCH TRANSDERM SCH (09:04)
[2017-10-27] MEDS: predniSONE 20 MG TAB PO SCH (09:05)
[2017-10-27] MEDS: METOPROLOL TARTRATE 50 MG TAB PO SCH (09:05)
[2017-10-27] MEDS: AMIODARONE 200 MG TAB PO SCH (09:06)
[2017-10-27] MEDS: MAGNESIUM OXIDE 400 MG TAB PO SCH (09:06)
[2017-10-27] MEDS: ASPIRIN 81 MG PO SCH (09:06)
[2017-10-27] MEDS: AMOXIC-POT CLAV 875-125MG 1 EACH TAB PO SCH (09:06)
[2017-10-27] MEDS: RIVAROXABAN 20 MG TAB PO SCH (09:07)
[2017-10-27] MEDS: POTASSIUM CHLORIDE ER 20 MEQ TAB.ER PO SCH (09:07)
[2017-10-27] MEDS: THIAMINE 100 MG TAB PO SCH (09:08)
[2017-10-27 10:55] VITALS: RESP 18
[2017-10-27 11:50] LABS: Glucose,Whole Blood 127 mg/dL (75-99)
[2017-10-27 14:27] VITALS: BP 114/71; TEMP 97.6
--- NOTE | 2017-10-27 15:53 | DS ---
DISCHARGE SUMMARY DATE OF ADMISSION: 10/24/17. DATE OF DISCHARGE: 10/27/17. FINAL DIAGNOSES: 1. Acute on chronic congestive heart failure exacerbation from systolic dysfunction, ejection fraction 20% from alcoholic cardiomyopathy. 2. Acute chronic obstructive pulmonary disease exacerbation in a current smoker. 3. Persistent atrial fibrillation with rapid ventricular rate, on presentation. 4. Chronic hypoxic respiratory failure from underlying chronic obstructive pulmonary disease. 5. Hyperlipidemia. 6. Essential hypertension. 7. Hypertensive heart disease. 8. Chronic nicotine dependence. Patient is a cigarette smoker. 9. Chronic alcohol dependence. 10.Hyperglycemia secondary to IV steroids. 11.Patient has a legal guardian. HOSPITAL COURSE: This patient continues to drink alcohol and smokes cigarettes presented with increased shortness of breath, cough. Found to have COPD exacerbation, CHF exacerbation. Did get IV Lasix and atrial fibrillation was uncontrolled. Heart rate was better controlled by the time of discharge. The patient is on Xarelto as anticoagulation. The patient advised against smoking and alcohol but would like to continue the same. Care was discussed with the patient. Questions were answered. Also discussed with discharge planning. On examination: Lungs: Decreased breath sounds. Heart sounds irregular. The patient is answers questions. DISCHARGE MEDICATIONS: 1. ProAir 2 puffs q.6h p.r.n. 2. Xarelto 20 mg p.o. daily. 3. DuoNeb q.i.d. 4. Amiodarone 4 mg p.o. daily. 5. Augmentin 875 1 tab q.12h for 5 days. 6. Pulmicort 1 mg b.i.d. 7. Perforomist 20 mcg b.i.d. 8. Nicotine 20 mg patch. 9. Pravachol 40 mg q.h.s. 10.Aspirin 81 mg a day. 11.Lasix 40 mg p.o. b.i.d. 12.[place] 10 1 tab q.6h p.r.n. for pain. 13.Levemir 10 units subcu q.h.s. 14.Magnesium oxide 400 mg p.o. t.i.d. 15.Lopressor 100 mg p.o. b.i.d. 16.Potassium 20 mEq a day. 17.Aldactone 25 mg a day. 18.Thiamine 100 mg b.i.d. 19.Prednisone taper. 20.Accu-Cheks q.a.c. and at bedtime. DISPOSITION: [facility]. Follow with Dr. Cedric Georges in [place] after discharge from [facility], follow up with Dr. Jordan at the [facility]. Discharge planning more than 35 minutes. MMODL / IJN: [id number] /
[2017-10-27 16:27] VITALS: PULSE 102
--- NOTE | 2017-10-27 16:30 | P.PN ---
Subjective Progress Note Date: 10/27/17 This is a pleasant 72-year-old gentleman with a past medical history significant for severe cardiomyopathy with known EF around 20%, paroxysmal atrial fibrillation, as well as multiple comorbid conditions, was admitted to the hospital was congestive heart failure secondary to systolic dysfunction. The patient presented to the hospital with progressive dyspnea. Also he was found to be in A. fib with RVR. The patient is currently on metoprolol 100 mg twice a day as well as Xarelto 20 mg daily, his potassium level III.0 today which is being replaced. Blood pressure 114/70 with a heart rate in the 70s. Objective - Vital Signs Vital signs: Vital Signs Temp 97.6 F 10/27/17 12:00 Pulse 103 H 10/27/17 16:16 Resp 18 10/27/17 12:00 BP 114/71 10/27/17 12:00 Pulse Ox 100 10/27/17 16:16 Intake & Output 10/26/17 10/27/17 10/27/17 18:59 06:59 18:59 Intake Total 960 510 344 Output Total 800 400 380 Balance 160 110 -36 Weight 72.3 kg Intake: IV 30 Invasive Line 1 30 Oral 960 480 344 Output: Urine 800 400 380 Other: Voiding Method Urinal Urinal Urinal # Voids 2 - Exam PHYSICAL EXAMINATION: GENERAL: 72-year-old gentleman in no acute distress at the time of my examination HEENT: Head is atraumatic, normocephalic. Pupils equal, round. Sclera anicteric. Conjunctiva are clear. Mucous membranes of the mouth are moist. Neck is supple. There is no elevated jugular venous pressure.] bruit is heard. HEART EXAMINATION: Heart S1 and S2 irregularly irregular CHEST EXAMINATION: Lungs reveal fine crackles to bilateral bases. ABDOMEN: Soft, nontender. Bowel sounds are heard. No organomegaly noted. EXTREMITIES: 2+ peripheral pulses with no evidence of peripheral edema and no calf tenderness noted. NEUROLOGIC patient is awake, alert and oriented ?-3. . - Labs CBC & Chem 7: 10/23/17 23:42 10/26/17 06:39 Labs: Abnormal Lab Results - Last 24 Hours (Table) 10/26/17 10/26/17 10/27/17 Range/Units 16:21 21:49 06:09 POC Glucose (mg/dL) 251 H 263 H 116 H (75-99) mg/dL 10/27/17 Range/Units 11:46 POC Glucose (mg/dL) 127 H (75-99) mg/dL Microbiology - Last 24 Hours (Table) 10/23/17 23:42 Blood Culture - Preliminary Blood No Growth after 72 hours Assessment and Plan Plan: Assessment and plan #1 acute on chronic respiratory failure #2 nonischemic cardiomyopathy #3 systolic congestive heart failure acute on chronic #4 persistent atrial fibrillation Plan From cardiology's perspective, once the potassium was replaced patient may be able to be discharged home, follow-up appointment will be made in the office post discharge. DNP note has been reviewed, I agree with a documented findings and plan of care. Patient was seen and examined.
== END 2017-10-27 17:31 | DRG 308 ==
LOC: EC 23:32 → 6SEL 10-24 02:17
PROVIDERS: ADMIT Hospitalist; ATTEND Hospitalist
DX: I48.2 Chronic atrial fibrillation (principal); I50.23 Acute on chronic systolic (congestive) heart failure; J44.1 Chronic obstructive pulmonary disease with (acute) exacerbation; J96.11 Chronic respiratory failure with hypoxia; I11.0 Hypertensive heart disease with heart failure; I42.6 Alcoholic cardiomyopathy; E78.5 Hyperlipidemia, unspecified; F17.210 Nicotine dependence, cigarettes, uncomplicated; T38.0X5A Adverse effect of glucocorticoids and synthetic analogues, initial encounter; R73.9 Hyperglycemia, unspecified; D64.9 Anemia, unspecified; E87.6 Hypokalemia; F10.20 Alcohol dependence, uncomplicated; I45.10 Unspecified right bundle-branch block; T50.906A Underdosing of unspecified drugs, medicaments and biological substances, initial encounter; Z88.1 Allergy status to other antibiotic agents; Z79.01 Long term (current) use of anticoagulants; Z79.899 Other long term (current) drug therapy; Z99.81 Dependence on supplemental oxygen; Z91.128 Patient's intentional underdosing of medication regimen for other reason; Z83.3 Family history of diabetes mellitus; Z86.73 Personal history of transient ischemic attack (TIA), and cerebral infarction without residual deficits; Z87.442 Personal history of urinary calculi
CPT/HCPCS: 36415; 71275; 80048; 80053; 80320; 82272; 82550; 82553; 83036; 83605; 83735; 83880; 84484; 85025; 85379; 85610; 85730; 87040; 87324; 93005; 94640; 94760; 96361; 96365; 96375; 96376; 99285

== ENCOUNTER 2017-11-10 17:05 | Observation (INO) | payer MEDICARE ==
[2017-11-10] MEDS ORDERED: IPRATROPIUM-ALBUTEROL 3 ML NEB INHALATION STA (17:44)
--- NOTE | 2017-11-10 17:48 | ED ---
General Adult HPI - General Chief complaint: Psychiatric Symptoms Stated complaint: ETOH/Mental Health Time Seen by Provider: 11/10/17 17:17 Source: patient, police, EMS, RN notes reviewed Mode of arrival: EMS Limitations: no limitations - History of Present Illness Initial comments: Patient is an agitated 72-year-old male presenting to the emergency department with concerns for patient's well-being. Patient arrives by EMS with police escort. Adult Protective Services were notified by police and petition was filled out. Patient states they're not comfortable with patient residing in his home anymore. Patient was found covered in stool. Patient did have urine soaked through the wood on the floor. Patient has not been out of bed in the past 4 days. Patient states his guardian does not help him with food or using the restroom. Patient has not ate much in the past few days. Patient does drink alcohol frequently. Patient does admit to having some difficulty in breathing. Patient is a chronic smoker. Patient states he has probably passed due for his nebulizer treatment. - Related Data Home Medications Medication Instructions Recorded Confirmed Albuterol Sulfate [Proair Hfa] 2 puff INHALATION RT-Q6H PRN 09/14/16 11/10/17 Rivaroxaban [Xarelto] 20 mg PO DAILY 03/28/17 11/10/17 Ipratropium-Albuterol Nebulize 3 ml INHALATION RT-QID 10/14/17 11/10/17 [Duoneb 0.5 mg-3 mg/3 ml Soln] Aspirin EC [Ecotrin Low Dose] 81 mg PO DAILY 10/24/17 11/10/17 Previous Rx's Medication Instructions Recorded Amiodarone [Cordarone] 400 mg PO DAILY #30 tab 10/21/17 Budesonide [Pulmicort] 1 mg INHALATION RT-BID #20 nebu 10/21/17 Formoterol Fumarate [Perforomist] 20 mcg INHALATION RT-BID #20 nebu 10/21/17 Nicotine 21Mg/24Hr Patch [Habitrol] 1 patch TRANSDERM DAILY patch 10/21/17 Pravastatin Sodium [Pravachol] 40 mg PO HS #30 tab 10/21/17 Furosemide [Lasix] 40 mg PO BID@0900,1600 tab 10/27/17 HYDROcodone/APAP 10-325MG [[place] 1 tab PO Q6H PRN #10 tab 10/27/17 10-325] Insulin Detemir [Levemir] 10 unit SQ HS syr 10/27/17 Magnesium Oxide [Mag-Ox] 400 mg PO TID tab 10/27/17 Metoprolol Tartrate [Lopressor] 100 mg PO BID #90 tab 10/27/17 Potassium Chloride ER [K-Dur 20] 20 meq PO DAILY tab.er.prt 10/27/17 Spironolactone [Aldactone] 25 mg PO DAILY tab 10/27/17 Thiamine [Vitamin B-1] 100 mg PO BID@1200,1700 tab 10/27/17 Allergies Allergy/AdvReac Type Severity Reaction Status Date / Time cephalexin monohydrate Allergy Rash/Hives Verified 11/10/17 17:30 [From KeStrava] Review of Systems ROS Statement: Those systems with pertinent positive or pertinent negative responses have been documented in the HPI. ROS Other: All systems not noted in ROS Statement are negative. Constitutional: Denies: fever Eyes: Denies: eye pain ENT: Denies: ear pain Respiratory: Reports: dyspnea. Denies: cough Cardiovascular: Denies: chest pain Endocrine: Denies: fatigue Gastrointestinal: Denies: abdominal pain Genitourinary: Denies: dysuria Musculoskeletal: Denies: back pain Skin: Denies: rash Neurological: Denies: weakness 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%, history cervical and lumbar spondylosis, carpal tunnel disease, paroxysmal atrial fibrillation, previous hospitalization for alcohol intoxication and altered mentation and previous history of fall with pulmonary contusion and traumatic right-sided fractures, history of delirium tremens, chronic atrial fibrillation, hypertension, hyperlipidemia, previous bouts of pneumonia, previous hospital physician for acute alcohol intoxication, kidney stones, cataracts, degenerative arthritis History of Any Multi-Drug Resistant Organisms: None Reported Past Surgical History: Back Surgery, Hernia Repair Additional Past Surgical History / Comment(s): right shoulder surgery, bilateral cataract surgery, umbilical hernia surgery, kidney stones removal, hammer toe surgery X3 with subsequent amputation of the second toe on right foot , pain injections through neurology, colonoscopy Past Anesthesia/Blood Transfusion Reactions: No Reported Reaction Past Psychological History: No Psychological Hx Reported Smoking Status: Current every day smoker Past Alcohol Use History: Abuse, Daily, Heavy Past Drug Use History: None Reported - Past Family History Father Family Medical History: Diabetes Mellitus Mother History Unknown: Yes Additional Family Medical History / Comment(s): 2001 General Exam Limitations: no limitations General appearance: alert, other (Patient covered with urine and feces. Patient was cleaned by nursing upon arrival.) Head exam: Present: atraumatic Eye exam: Present: normal appearance, PERRL ENT exam: Present: normal oropharynx Neck exam: Present: normal inspection Respiratory exam: Present: wheezes Cardiovascular Exam: Present: regular rate, normal rhythm GI/Abdominal exam: Present: soft. Absent: tenderness Extremities exam: Present: normal inspection Neurological exam: Present: alert Psychiatric exam: Present: agitated Skin exam: Present: normal color Course Vital Signs 11/10/17 11/10/17 11/10/17 17:15 18:02 18:11 Temperature 98.0 F Pulse Rate 92 82 88 Respiratory 18 Rate Blood Pressure 117/58 O2 Sat by Pulse 79 L Oximetry EKG Findings - EKG Comments: EKG Findings:: A. fib with RVR, rate 118. QRS 128. QT 380. QTC 532. Left axis. Right bundle branch block. Lateral T wave inversion with some ST depression.. Medical Decision Making - Medical Decision Making Patient reevaluated and resting comfortably in bed. Lung sounds unchanged. Please officers stated earlier that patient does not appear to be capable of taking care of self. They state guardian does not appear to be interested and care of patient. Case discussed with Dr. Canales, who will admit for Dr. bradshaw, who admits for Dr. gupta - Lab Data Result diagrams: 11/10/17 18:36 11/10/17 18:36 Lab Results 11/10/17 11/10/17 11/10/17 Range/Units 18:36 18:36 18:36 WBC 3.7 L (3.8-10.6) k/uL RBC 3.29 L (4.30-5.90) m/uL Hgb 9.2 L (13.0-17.5) gm/dL Hct 30.2 L (39.0-53.0) % MCV 91.7 (80.0-100.0) fL MCH 27.8 (25.0-35.0) pg MCHC 30.4 L (31.0-37.0) g/dL RDW 19.6 H (11.5-15.5) % Plt Count 285 (150-450) k/uL Neutrophils % 80 % Lymphocytes % 14 % Monocytes % 4 % Eosinophils % 0 % Basophils % 0 % Neutrophils # 2.9 (1.3-7.7) k/uL Lymphocytes # 0.5 L (1.0-4.8) k/uL Monocytes # 0.2 (0-1.0) k/uL Eosinophils # 0.0 (0-0.7) k/uL Basophils # 0.0 (0-0.2) k/uL Hypochromasia Marked Anisocytosis Slight Sodium 143 (137-145) mmol/L Potassium 4.1 (3.5-5.1) mmol/L Chloride 111 H (98-107) mmol/L Carbon Dioxide 23 (22-30) mmol/L Anion Gap 9 mmol/L BUN 8 L (9-20) mg/dL Creatinine 0.88 (0.66-1.25) mg/dL Est GFR (CKD-EPI)AfAm >90 (>60 ml/min/1.73 sqM) Est GFR (CKD-EPI)NonAf 87 (>60 ml/min/1.73 sqM) Glucose 243 H (74-99) mg/dL Calcium 7.8 L (8.4-10.2) mg/dL Magnesium 2.0 (1.6-2.3) mg/dL Total Bilirubin 0.4 (0.2-1.3) mg/dL AST 35 (17-59) U/L ALT 57 (21-72) U/L Alkaline Phosphatase 93 (38-126) U/L Total Creatine Kinase <20 L (55-170) U/L CK-MB (CK-2) 0.6 (0.0-2.4) ng/mL CK-MB (CK-2) Rel Index Troponin I <0.012 (0.000-0.034) ng/mL Total Protein 5.0 L (6.3-8.2) g/dL Albumin 2.8 L (3.5-5.0) g/dL Serum Alcohol 97 mg/dL - Radiology Data Radiology results: image reviewed (Chest x-ray shows cardiomegaly.) Disposition Clinical Impression: COPD (chronic obstructive pulmonary disease), Failure to thrive Disposition: ADMITTED IP TO THIS HOSP Is patient prescribed a controlled substance at d/c from ED?: No Referrals: Darrick Georges MD [Primary Care Provider] - 1-2 days Decision Time: 19:49
[2017-11-10] MEDS ORDERED: SODIUM CHLORIDE 0.9% 1,000 ML with MVI, ADULT NO.4 WITH VIT K 10 ML, THIAMINE 100 MG, F... IV ONE ×4 (18:00)
[2017-11-10 18:47] LABS: Anisocytosis Slight; Basophils % (A) 0 %; Eosinophils % (A) 0 %; HCT 30.2 % (39.0-53.0); HGB 9.2 gm/dL (13.0-17.5); Hypochromasia Marked; Lymphocytes # (A) 0.5 k/uL (1.0-4.8); Lymphocytes % (A) 14 %; MCH 27.8 pg (25.0-35.0); MCHC 30.4 g/dL (31.0-37.0); MCV 91.7 fL (80.0-100.0); Mean Platelet Volume 7.9; Monocytes # (A) 0.2 k/uL (0-1.0); Monocytes % (A) 4 %; Neutrophils # (A) 2.9 k/uL (1.3-7.7); Neutrophils % (A) 80 %; Platelet Count 285 k/uL (150-450); RBC 3.29 m/uL (4.30-5.90); RDW 19.6 % (11.5-15.5); WBC 3.7 k/uL (3.8-10.6)
--- NOTE | 2017-11-10 18:58 | XR ---
EXAMINATION TYPE: XR chest 2V DATE OF EXAM: 11/10/2017 COMPARISON: 10/21/2017 HISTORY: Altered mental status TECHNIQUE: Frontal and lateral views of the chest are obtained. FINDINGS: Heart is enlarged. There is no heart failure. Costophrenic angles are clear. There is righ t shoulder prosthesis. There is no pleural effusion. IMPRESSION: Cardiomegaly. There is clearing of the pulmonary congestion and basilar pulmonary infilt rates compared to last exam.
[2017-11-10 19:07] LABS: Creatine Kinase <20 U/L (55-170)
[2017-11-10 19:09] LABS: ALT 57 U/L (21-72); AST 35 U/L (17-59); Albumin 2.8 g/dL (3.5-5.0); Alcohol 97 mg/dL; Alkaline Phosphatase 93 U/L (38-126); Anion Gap 9 mmol/L; Blood Urea Nitrogen 8 mg/dL (9-20); Calcium 7.8 mg/dL (8.4-10.2); Carbon Dioxide 23 mmol/L (22-30); Chloride 111 mmol/L (98-107); Glucose 243 mg/dL (74-99); Potassium 4.1 mmol/L (3.5-5.1); Sodium 143 mmol/L (137-145); Total Bilirubin 0.4 mg/dL (0.2-1.3)
[2017-11-10 19:20] LABS: Creatine Kinase MB 0.6 ng/mL (0.0-2.4); Troponin I <0.012 ng/mL (0.000-0.034)
[2017-11-10] MEDS ORDERED: IPRATROPIUM-ALBUTEROL 3 ML NEB INHALATION PRN (19:50)
[2017-11-10] MEDS ORDERED: methylPREDNISolone SOD SUCCI 125 MG/2 ML VIAL IV STA (19:50)
[2017-11-10] MEDS ORDERED: IPRATROPIUM-ALBUTEROL 3 ML NEB INHALATION SCH (20:00)
[2017-11-10] MEDS ORDERED: ALBUTEROL INHALER 60 PUFF/8 GM INHALER INHALATION PRN (20:29)
[2017-11-10] MEDS ORDERED: LORazepam 2 MG/ML INJ IV PRN ×3 (21:29)
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
[2017-11-10] MEDS: METOPROLOL TARTRATE 50 MG TAB PO SCH (22:14)
[2017-11-10] MEDS: PRAVASTATIN SODIUM 40 MG TAB PO SCH (22:14)
[2017-11-10] MEDS: MAGNESIUM OXIDE 400 MG TAB PO SCH (22:14)
[2017-11-10] MEDS: AMIODARONE 200 MG TAB PO SCH (22:14)
[2017-11-10 22:28] LABS: Glucose,Whole Blood 324 mg/dL (75-99)
[2017-11-10] MEDS: INSULIN DETEMIR 100 UNIT/ML 10 ML VIAL SQ SCH (22:32)
[2017-11-10] MEDS: INSULIN ASPART 100 UNIT/ML 1 ML 10 ML VIAL SQ SCH (22:45)
[2017-11-10] MEDS: methylPREDNISolone SOD SUCCI 125 MG/2 ML VIAL IV SCH (23:01)
[2017-11-11 02:19] LABS: Glucose,Whole Blood 122 mg/dL (75-99)
[2017-11-11] MEDS: methylPREDNISolone SOD SUCCI 125 MG/2 ML VIAL IV SCH ×3 (05:56→17:47)
[2017-11-11] MEDS: 1: MVI, ADULT NO.4 WITH VIT K 10 ML, THIAMINE 100 MG, FOLIC ACID 1 MG in SODIUM CHLORIDE IV SCH ×8 (05:58→17:46)
[2017-11-11] MEDS: IPRATROPIUM-ALBUTEROL 3 ML NEB INHALATION SCH ×4 (07:30→20:44)
[2017-11-11] MEDS: BUDESONIDE 1 MG/2 ML NEBU INHALATION SCH ×2 (07:30→20:44)
[2017-11-11] MEDS: FORMOTEROL FUMARATE 20 MCG/2 ML NEBU INHALATION SCH ×2 (07:30→20:44)
[2017-11-11] MEDS: INSULIN ASPART 100 UNIT/ML 1 ML 10 ML VIAL SQ SCH ×4 (07:51→22:07)
[2017-11-11 07:54] LABS: Glucose,Whole Blood 127 mg/dL (75-99)
[2017-11-11] MEDS: FUROSEMIDE 40 MG TAB PO SCH ×2 (08:14→16:02)
[2017-11-11] MEDS: ASPIRIN 81 MG PO SCH (08:14)
[2017-11-11] MEDS: METOPROLOL TARTRATE 50 MG TAB PO SCH ×2 (08:14→20:44)
[2017-11-11] MEDS: MAGNESIUM OXIDE 400 MG TAB PO SCH ×3 (08:14→20:44)
[2017-11-11] MEDS: THIAMINE 100 MG TAB PO SCH ×2 (08:14→16:02)
[2017-11-11] MEDS: SPIRONOLACTONE 25 MG TAB PO SCH (08:14)
[2017-11-11] MEDS: NICOTINE 21MG/24HR PATCH TRANSDERM SCH (08:15)
[2017-11-11] MEDS: RIVAROXABAN 20 MG TAB PO SCH (08:15)
[2017-11-11] MEDS: AMIODARONE 200 MG TAB PO SCH (08:15)
[2017-11-11] MEDS: AZITHROMYCIN 500 MG TAB PO SCH (08:15)
[2017-11-11] MEDS: HYDROcodone/APAP 10-325MG 1 EACH TAB PO PRN ×3 (08:23→22:07)
[2017-11-11 12:27] LABS: Glucose,Whole Blood 180 mg/dL (75-99)
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
[2017-11-11 16:56] LABS: Glucose,Whole Blood 220 mg/dL (75-99)
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
[2017-11-11] MEDS: PRAVASTATIN SODIUM 40 MG TAB PO SCH (20:44)
[2017-11-11 21:13] LABS: Glucose,Whole Blood 201 mg/dL (75-99)
[2017-11-11] MEDS: INSULIN DETEMIR 100 UNIT/ML 10 ML VIAL SQ SCH (22:06)
[2017-11-12] MEDS ORDERED: methylPREDNISolone SOD SUCCI 125 MG/2 ML VIAL ONE
[2017-11-12] MEDS ORDERED: SODIUM CHLORIDE 0.9% 1,000 ML BAG ONE
[2017-11-12] MEDS: 1: MVI, ADULT NO.4 WITH VIT K 10 ML, THIAMINE 100 MG, FOLIC ACID 1 MG in SODIUM CHLORIDE IV SCH ×8 (04:14→13:06)
[2017-11-12] MEDS: methylPREDNISolone SOD SUCCI 125 MG/2 ML VIAL IV SCH ×3 (04:14→13:06)
[2017-11-12 07:08] VITALS: RESP 18
[2017-11-12 07:23] LABS: Glucose,Whole Blood 133 mg/dL (75-99)
[2017-11-12] MEDS: IPRATROPIUM-ALBUTEROL 3 ML NEB INHALATION SCH ×3 (07:52→16:17)
[2017-11-12] MEDS: BUDESONIDE 1 MG/2 ML NEBU INHALATION SCH (07:52)
[2017-11-12] MEDS: FORMOTEROL FUMARATE 20 MCG/2 ML NEBU INHALATION SCH (07:52)
[2017-11-12] MEDS: INSULIN ASPART 100 UNIT/ML 1 ML 10 ML VIAL SQ SCH ×2 (08:39→13:06)
[2017-11-12] MEDS: NICOTINE 21MG/24HR PATCH TRANSDERM SCH (08:40)
[2017-11-12] MEDS: RIVAROXABAN 20 MG TAB PO SCH (08:41)
[2017-11-12] MEDS: AZITHROMYCIN 500 MG TAB PO SCH (08:41)
[2017-11-12] MEDS: METOPROLOL TARTRATE 50 MG TAB PO SCH (08:41)
[2017-11-12] MEDS: ASPIRIN 81 MG PO SCH (08:41)
[2017-11-12] MEDS: SPIRONOLACTONE 25 MG TAB PO SCH (08:41)
[2017-11-12] MEDS: THIAMINE 100 MG TAB PO SCH ×2 (08:41→15:38)
[2017-11-12] MEDS: MAGNESIUM OXIDE 400 MG TAB PO SCH ×2 (08:41→15:38)
[2017-11-12] MEDS: FUROSEMIDE 40 MG TAB PO SCH ×2 (08:42→15:38)
[2017-11-12] MEDS: AMIODARONE 200 MG TAB PO SCH (08:42)
[2017-11-12] MEDS: HYDROcodone/APAP 10-325MG 1 EACH TAB PO PRN (08:44)
[2017-11-12 09:08] LABS: Anisocytosis Slight; Basophils % (A) 0 %; Eosinophils % (A) 0 %; HGB 8.4 gm/dL (13.0-17.5); Hypochromasia Marked; Lymphocytes # (A) 0.6 k/uL (1.0-4.8); Lymphocytes % (A) 9 %; MCH 27.3 pg (25.0-35.0); MCHC 28.9 g/dL (31.0-37.0); MCV 94.3 fL (80.0-100.0); Macrocytosis Slight; Mean Platelet Volume 7.3; Monocytes # (A) 0.2 k/uL (0-1.0); Monocytes % (A) 3 %; Neutrophils # (A) 5.7 k/uL (1.3-7.7); Neutrophils % (A) 87 %; Platelet Count 274 k/uL (150-450); RBC 3.07 m/uL (4.30-5.90); RDW 18.8 % (11.5-15.5); WBC 6.5 k/uL (3.8-10.6)
[2017-11-12 09:25] LABS: Anion Gap 8 mmol/L; Blood Urea Nitrogen 26 mg/dL (9-20); Calcium 7.9 mg/dL (8.4-10.2); Carbon Dioxide 26 mmol/L (22-30); Chloride 103 mmol/L (98-107); Glucose 118 mg/dL (74-99); Magnesium 1.9 mg/dL (1.6-2.3); Potassium 4.3 mmol/L (3.5-5.1); Sodium 137 mmol/L (137-145)
[2017-11-12 12:44] LABS: Glucose,Whole Blood 220 mg/dL (75-99)
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
[2017-11-12 14:58] VITALS: BP 101/59; TEMP 98.2
[2017-11-12 16:30] VITALS: PULSE 84
[2017-11-12 17:34] LABS: Glucose,Whole Blood 163 mg/dL (75-99)
== END 2017-11-12 18:31 | disposition home health service (06) ==
LOC: EC 17:05 → 4MS4W 19:52
PROVIDERS: ADMIT Internal Medicine; ATTEND Internal Medicine
DX: J44.1 Chronic obstructive pulmonary disease with (acute) exacerbation (principal); I48.2 Chronic atrial fibrillation; I50.22 Chronic systolic (congestive) heart failure; I11.0 Hypertensive heart disease with heart failure; T74.01XA Adult neglect or abandonment, confirmed, initial encounter; T74.91XA Unspecified adult maltreatment, confirmed, initial encounter; Z99.81 Dependence on supplemental oxygen; I42.6 Alcoholic cardiomyopathy; J96.11 Chronic respiratory failure with hypoxia; Z86.73 Personal history of transient ischemic attack (TIA), and cerebral infarction without residual deficits; E78.5 Hyperlipidemia, unspecified; Z87.442 Personal history of urinary calculi; Z87.01 Personal history of pneumonia (recurrent); M47.9 Spondylosis, unspecified; M19.90 Unspecified osteoarthritis, unspecified site; R73.9 Hyperglycemia, unspecified; F10.229 Alcohol dependence with intoxication, unspecified; D64.9 Anemia, unspecified; R62.7 Adult failure to thrive; R53.81 Other malaise; F17.200 Nicotine dependence, unspecified, uncomplicated; Z83.3 Family history of diabetes mellitus; Z79.01 Long term (current) use of anticoagulants; Z79.51 Long term (current) use of inhaled steroids; Z79.899 Other long term (current) drug therapy; Z79.82 Long term (current) use of aspirin; Z79.4 Long term (current) use of insulin; Z88.1 Allergy status to other antibiotic agents
CPT/HCPCS: 96365 ×2; 96366 ×4; 96376 ×2; 96375; 82075; 99285; 36415; 94640 ×5; 94760 ×2; 93005; 97162; 97166; 80053; 80048; 82550; 82553; 83735 ×2; 84100; 84484; 85025 ×2; 80320; 71046; G0378 ×3; J2930 ×3; J3411 ×2

== ENCOUNTER 2017-11-17 21:34 | Inpatient (IN) | payer MEDICARE ==
[2017-11-17] MEDS ORDERED: LEVOFLOXACIN 750MG-D5W PMX 750 MG in DEXTROSE/WATER 1 150ML.BAG IVPB STA (21:51)
[2017-11-17] MEDS ORDERED: VANCOMYCIN IV PER PHARMACY 1 EACH MISC MISCELLANE PRN (21:51)
[2017-11-17] MEDS ORDERED: VANCOMYCIN 1,500 MG in SODIUM CHLORIDE 0.9% 250 ML IVPB STA (21:58)
--- NOTE | 2017-11-17 22:00 | ED ---
General Adult HPI - General Chief complaint: Shortness of Breath Stated complaint: RAFIQ Time Seen by Provider: 11/17/17 21:37 Source: patient Mode of arrival: EMS Limitations: no limitations - History of Present Illness Initial comments: This is a 72-year-old male with a history of CHF, COPD, chronic EtOH abuse who presents emergency department for a call intoxication, shortness of breath, and cough. The patient was picked up by EMS. The patient is currently belligerent and is not answering a lot of questions. He is angered because of the IV is being placed in his arm. He states he's been coughing since he left the hospital one week ago. He states that he's also been feeling more short of breath. Denies any chest pain. No abdominal pain. Does admit to drinking this evening. - Related Data Home Medications Medication Instructions Recorded Confirmed Albuterol Sulfate [Proair Hfa] 2 puff INHALATION RT-Q6H PRN 09/14/16 11/17/17 Rivaroxaban [Xarelto] 20 mg PO DAILY 03/28/17 11/17/17 Ipratropium-Albuterol Nebulize 3 ml INHALATION RT-QID 10/14/17 11/17/17 [Duoneb 0.5 mg-3 mg/3 ml Soln] Aspirin EC [Ecotrin Low Dose] 81 mg PO DAILY 10/24/17 11/17/17 methylPREDNISolone Dose Pack See Taper PO DIRECTED 11/17/17 11/17/17 [Medrol Dose Pack] Previous Rx's Medication Instructions Recorded Amiodarone [Cordarone] 400 mg PO DAILY #30 tab 10/21/17 Budesonide [Pulmicort] 1 mg INHALATION RT-BID #20 nebu 10/21/17 Formoterol Fumarate [Perforomist] 20 mcg INHALATION RT-BID #20 nebu 10/21/17 Nicotine 21Mg/24Hr Patch [Habitrol] 1 patch TRANSDERM DAILY patch 10/21/17 Pravastatin Sodium [Pravachol] 40 mg PO HS #30 tab 10/21/17 Furosemide [Lasix] 40 mg PO BID@0900,1600 tab 10/27/17 HYDROcodone/APAP 10-325MG [[place] 1 tab PO Q6H PRN #10 tab 10/27/17 10-325] Insulin Detemir [Levemir] 10 unit SQ HS syr 10/27/17 Magnesium Oxide [Mag-Ox] 400 mg PO TID tab 10/27/17 Metoprolol Tartrate [Lopressor] 100 mg PO BID #90 tab 10/27/17 Potassium Chloride ER [K-Dur 20] 20 meq PO DAILY tab.er.prt 10/27/17 Spironolactone [Aldactone] 25 mg PO DAILY tab 10/27/17 Thiamine [Vitamin B-1] 100 mg PO BID@1200,1700 tab 10/27/17 Azithromycin [Zithromax] 500 mg PO DAILY #5 tab 11/12/17 Allergies Allergy/AdvReac Type Severity Reaction Status Date / Time cephalexin monohydrate Allergy Rash/Hives Verified 11/17/17 22:23 [From dondeEsta™] Review of Systems ROS Statement: Those systems with pertinent positive or pertinent negative responses have been documented in the HPI. ROS Other: All systems not noted in ROS Statement are negative. 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%, history cervical and lumbar spondylosis, carpal tunnel disease, paroxysmal atrial fibrillation, previous hospitalization for alcohol intoxication and altered mentation and previous history of fall with pulmonary contusion and traumatic right-sided fractures, history of delirium tremens, chronic atrial fibrillation, hypertension, hyperlipidemia, previous bouts of pneumonia, previous hospital physician for acute alcohol intoxication, kidney stones, cataracts, degenerative arthritis History of Any Multi-Drug Resistant Organisms: None Reported Past Surgical History: Back Surgery, Hernia Repair Additional Past Surgical History / Comment(s): right shoulder surgery, bilateral cataract surgery, umbilical hernia surgery, kidney stones removal, hammer toe surgery X3 with subsequent amputation of the second toe on right foot , pain injections through neurology, colonoscopy Past Anesthesia/Blood Transfusion Reactions: No Reported Reaction Past Psychological History: No Psychological Hx Reported Past Alcohol Use History: Daily - Past Family History Father Family Medical History: Diabetes Mellitus Mother History Unknown: Yes Additional Family Medical History / Comment(s): 2001 General Exam - General Exam Comments Initial Comments: Constitutional: Awake alert Appears comfortable Head: Normocephalic atraumatic Eyes: no conjunctival injection No scleral icterus EOMI Neck: No JVD Supple Heart: Tachycardia with irregular rhythm normal S1-S2 no murmurs Lungs: Clear to auscultation bilaterally No wheezing bilateral basilar rales Abdomen: Soft nondistended nontender Extremities: Non edematous DP pulses intact Radial pulses intact Neuro: A&Ox3 No focal neurologic deficits Psych: Appropriate mood and affect Limitations: no limitations Course Vital Signs 11/17/17 11/17/17 11/17/17 21:38 23:07 23:32 Temperature 101.2 F H 98.9 F Pulse Rate 169 H 149 H 124 H Respiratory 24 18 Rate Blood Pressure 109/73 121/74 O2 Sat by Pulse 96 99 100 Oximetry EKG Findings - EKG Comments: EKG Findings:: EKG showing atrial fibrillation with a rate of 155. There is no abnormal ST segment changes or T-wave inversion. The patient does have an incomplete right bundle branch block. QTC is 410. Other intervals normal. No ectopy. Medical Decision Making - Medical Decision Making This is a 72-year-old male who presents emergency department for cough and shortness of breath. He is found to be in intrafibrillation with a rate of 160 when he got here. He was febrile. Arrival and was given a fluid bolus and Tylenol for his fever. No bolus was 1500 mL. Did not want to give full very cc per KG because of patient's poor EF and concern for fluid overload. Blood pressure remained stable. Lactic was normal area heart rate improved down to the 130s after fluid bolus and Tylenol. He was given Lopressor which brought him down to 120s. Lopressor OB given again. The patient needs close monitoring for is a fracture of fibrillation with RVR. X-ray did not show any evidence for pneumonia however due to the patient's cough I suspect that the patient may be developing this. He started on antibiotics empirically. Dr. Victor except see admission. - Lab Data Result diagrams: 11/17/17 21:56 11/17/17 21:56 Lab Results 11/17/17 11/17/17 11/17/17 Range/Units 21:56 21:56 21:56 WBC 9.1 (3.8-10.6) k/uL RBC 3.34 L (4.30-5.90) m/uL Hgb 9.0 L (13.0-17.5) gm/dL Hct 30.1 L (39.0-53.0) % MCV 90.2 (80.0-100.0) fL MCH 26.8 (25.0-35.0) pg MCHC 29.7 L (31.0-37.0) g/dL RDW 19.2 H (11.5-15.5) % Plt Count 149 L (150-450) k/uL Neutrophils % 78 % Lymphocytes % 11 % Monocytes % 9 % Eosinophils % 1 % Basophils % 0 % Neutrophils # 7.1 (1.3-7.7) k/uL Lymphocytes # 1.0 (1.0-4.8) k/uL Monocytes # 0.8 (0-1.0) k/uL Eosinophils # 0.1 (0-0.7) k/uL Basophils # 0.0 (0-0.2) k/uL Hypochromasia Marked Anisocytosis Slight PT (9.0-12.0) sec INR (<1.2) APTT (22.0-30.0) sec Sodium 136 L (137-145) mmol/L Potassium 4.5 (3.5-5.1) mmol/L Chloride 100 (98-107) mmol/L Carbon Dioxide 30 (22-30) mmol/L Anion Gap 6 mmol/L BUN 13 (9-20) mg/dL Creatinine 0.90 (0.66-1.25) mg/dL Est GFR (CKD-EPI)AfAm >90 (>60 ml/min/1.73 sqM) Est GFR (CKD-EPI)NonAf 86 (>60 ml/min/1.73 sqM) Glucose 106 H (74-99) mg/dL Plasma Lactic Acid Elvis 1.8 (0.7-2.0) mmol/L Calcium 8.1 L (8.4-10.2) mg/dL Total Bilirubin 0.9 (0.2-1.3) mg/dL AST 29 (17-59) U/L ALT 68 (21-72) U/L Alkaline Phosphatase 81 (38-126) U/L Total Creatine Kinase (55-170) U/L CK-MB (CK-2) (0.0-2.4) ng/mL CK-MB (CK-2) Rel Index Troponin I (0.000-0.034) ng/mL NT-Pro-B Natriuret Pep pg/mL Total Protein 5.0 L (6.3-8.2) g/dL Albumin 2.7 L (3.5-5.0) g/dL Serum Alcohol <10 mg/dL 11/17/17 11/17/17 11/17/17 Range/Units 21:56 21:56 21:56 WBC (3.8-10.6) k/uL RBC (4.30-5.90) m/uL Hgb (13.0-17.5) gm/dL Hct (39.0-53.0) % MCV (80.0-100.0) fL MCH (25.0-35.0) pg MCHC (31.0-37.0) g/dL RDW (11.5-15.5) % Plt Count (150-450) k/uL Neutrophils % % Lymphocytes % % Monocytes % % Eosinophils % % Basophils % % Neutrophils # (1.3-7.7) k/uL Lymphocytes # (1.0-4.8) k/uL Monocytes # (0-1.0) k/uL Eosinophils # (0-0.7) k/uL Basophils # (0-0.2) k/uL Hypochromasia Anisocytosis PT 11.0 (9.0-12.0) sec INR 1.1 (<1.2) APTT 23.1 (22.0-30.0) sec Sodium (137-145) mmol/L Potassium (3.5-5.1) mmol/L Chloride (98-107) mmol/L Carbon Dioxide (22-30) mmol/L Anion Gap mmol/L BUN (9-20) mg/dL Creatinine (0.66-1.25) mg/dL Est GFR (CKD-EPI)AfAm (>60 ml/min/1.73 sqM) Est GFR (CKD-EPI)NonAf (>60 ml/min/1.73 sqM) Glucose (74-99) mg/dL Plasma Lactic Acid Elvis (0.7-2.0) mmol/L Calcium (8.4-10.2) mg/dL Total Bilirubin (0.2-1.3) mg/dL AST (17-59) U/L ALT (21-72) U/L Alkaline Phosphatase (38-126) U/L Total Creatine Kinase <20 L (55-170) U/L CK-MB (CK-2) 0.5 (0.0-2.4) ng/mL CK-MB (CK-2) Rel Index Troponin I <0.012 (0.000-0.034) ng/mL NT-Pro-B Natriuret Pep 3150 pg/mL Total Protein (6.3-8.2) g/dL Albumin (3.5-5.0) g/dL Serum Alcohol mg/dL Disposition Clinical Impression: Sepsis, CAP (community acquired pneumonia), Atrial fibrillation with RVR Disposition: ADMITTED IP TO THIS HOSP Condition: Stable
[2017-11-17] MEDS ORDERED: ACETAMINOPHEN TAB 500 MG TAB PO STA (22:11)
[2017-11-17 22:18] LABS: Anisocytosis Slight; Basophils % (A) 0 %; Eosinophils # (A) 0.1 k/uL (0-0.7); Eosinophils % (A) 1 %; HCT 30.1 % (39.0-53.0); Hypochromasia Marked; Lymphocytes % (A) 11 %; MCH 26.8 pg (25.0-35.0); MCHC 29.7 g/dL (31.0-37.0); MCV 90.2 fL (80.0-100.0); Mean Platelet Volume 7.9; Monocytes # (A) 0.8 k/uL (0-1.0); Monocytes % (A) 9 %; Neutrophils # (A) 7.1 k/uL (1.3-7.7); Neutrophils % (A) 78 %; Platelet Count 149 k/uL (150-450); RBC 3.34 m/uL (4.30-5.90); RDW 19.2 % (11.5-15.5); WBC 9.1 k/uL (3.8-10.6)
[2017-11-17] MEDS: SODIUM CHLORIDE 0.9% 500 ML IV SCH ×2 (22:21→23:32)
[2017-11-17 22:29] LABS: ALT 68 U/L (21-72); AST 29 U/L (17-59); Albumin 2.7 g/dL (3.5-5.0); Alcohol <10 mg/dL; Alkaline Phosphatase 81 U/L (38-126); Anion Gap 6 mmol/L; Blood Urea Nitrogen 13 mg/dL (9-20); Calcium 8.1 mg/dL (8.4-10.2); Carbon Dioxide 30 mmol/L (22-30); Chloride 100 mmol/L (98-107); Glucose 106 mg/dL (74-99); Potassium 4.5 mmol/L (3.5-5.1); Sodium 136 mmol/L (137-145); Total Bilirubin 0.9 mg/dL (0.2-1.3)
[2017-11-17 22:30] LABS: INR 1.1 (<1.2); Partial Thromboplastin Time 23.1 sec (22.0-30.0)
[2017-11-17 22:38] LABS: Creatine Kinase <20 U/L (55-170)
[2017-11-17 22:52] LABS: Creatine Kinase MB 0.5 ng/mL (0.0-2.4); Troponin I <0.012 ng/mL (0.000-0.034)
[2017-11-17] MEDS ORDERED: METOPROLOL TARTRATE 5 MG/5 ML VIAL IVP STA ×2 (22:57→23:41)
--- NOTE | 2017-11-17 23:09 | XR ---
EXAMINATION TYPE: XR chest 2V DATE OF EXAM: 11/17/2017 COMPARISON: 11/10/2017 HISTORY: Short of breath TECHNIQUE: Frontal and lateral views of the chest are obtained. FINDINGS: Heart is enlarged. There is no gross heart failure. There is very slight blunting of of th e posterior costophrenic angles.. There are chest leads. There is right shoulder prosthesis. Mediasti num is normal. IMPRESSION: Cardiomegaly. Small pleural effusions similar to old exam. No overt heart failure.
[2017-11-17] MEDS ORDERED: NALOXONE 0.4 MG/ML 1 ML VIAL IV PRN (23:59)
[2017-11-18 00:45] LABS: Glucose,Whole Blood 122 mg/dL (75-99)
[2017-11-18 00:47] VITALS: BMI 21.2
[2017-11-18] MEDS ORDERED: INSULIN ASPART 100 UNIT/ML 1 ML 10 ML VIAL SQ PRN (01:27)
--- NOTE | 2017-11-18 01:54 | P.HPIM ---
History of Present Illness H&P Date: 11/18/17 Chief Complaint: Shortness of breath This is a 72-year-old male chronically ill with multiple cardiopulmonary cor morbidities including advanced COPD with home oxygen, chronic systolic CHF with EF of 20%, atrial fibrillation with poorly controlled ventricular response, currently on Lopressor, amiodarone and xarato. The patient is very difficult historian. He does not want tear easily. He gets tired and upset easily with asking multiple questions or inquiring more about his symptoms. He is not willing to want tear provide more detailed history. Patient coming in with complaint of shortness of breath and cough. This is his initial complaint emergency department. During my interview he stated that he has been short of breath for 8 years. He states that a week ago he was discharge from our institution. He has a difficult home situation as well. He states that he is been coughing for a long time including at the time of discharge. He feels that he is shortness of breath and cough could be slightly worse or than usual. He shortness of breath is mostly with exertion and not at rest. Currently during my interview he does not appear short of breath and he actually denies any significant shortness of breath. He states that he shortness of breath is long-standing and is due to COPD. He does not feel that right now there is any difference to his baseline shortness. He states that he' s been having chronic cough with expectoration of the light flank. He denies any changes in the color or quantity of the sputum likely and denies any blood in the sputum he denies any orthopnea or leg swelling. Denies any chest pain. Cannot say if anything makes his cough or shortness of breath whether or worse. He denies any fever, chills or shakes or sweats at home. He was quite surprised that one of the temperature measurements in emergency department showed temperature 101.2. He did not feel any feverish or chills. He was found to have A. fib with ventricular response and 160s and improved after Lopressor IV and bolus of IV fluids of 1.5 L. He currently feels comfortable does not have any particular complaints. Denies any back pain or dysuria. Review of Systems Constitutional: Reports anorexia, Denies chills, Denies fatigue, Denies fever, Denies night sweats, Denies poor appetite Ears, nose, mouth and throat: Denies dysphagia Cardiovascular: Reports as per HPI Respiratory: Reports as per HPI Gastrointestinal: Denies abdominal pain, Denies diarrhea Genitourinary: Denies dysuria Musculoskeletal: Denies arm numbness/tingling, Denies hot joints, Denies low back pain, Denies myalgias, Denies neck pain Integumentary: Reports sores, Denies pruritus, Denies rash Neurological: Denies confusion Psychiatric: Denies confusion Endocrine: Denies cold intolerance, Denies heat intolerance 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%, history cervical and lumbar spondylosis, carpal tunnel disease, paroxysmal atrial fibrillation, previous hospitalization for alcohol intoxication and altered mentation and previous history of fall with pulmonary contusion and traumatic right-sided fractures, history of delirium tremens, chronic atrial fibrillation, hypertension, hyperlipidemia, previous bouts of pneumonia, previous hospital physician for acute alcohol intoxication, kidney stones, cataracts, degenerative arthritis History of Any Multi-Drug Resistant Organisms: None Reported Past Surgical History: Back Surgery, Hernia Repair Additional Past Surgical History / Comment(s): right shoulder surgery, bilateral cataract surgery, umbilical hernia surgery, kidney stones removal, hammer toe surgery X3 with subsequent amputation of the second toe on right foot , pain injections through neurology, colonoscopy Past Anesthesia/Blood Transfusion Reactions: No Reported Reaction Past Psychological History: No Psychological Hx Reported Additional Psychological History / Comment(s): Lives with friend, Bekah Arriaga. she lives in the upstairs of his home. Smoking Status: Current every day smoker Past Alcohol Use History: Daily Additional Past Alcohol Use History / Comment(s): Smokes 1 PPD, USUALLY DRINKS "at least" A FIFTH OF VODKA BETWEEN 9PM-MIDNIGHT DAILY Past Drug Use History: None Reported - Past Family History Father Family Medical History: Diabetes Mellitus Mother History Unknown: Yes Additional Family Medical History / Comment(s): 2000 Medications and Allergies Home Medications Medication Instructions Recorded Confirmed Type Albuterol Sulfate [Proair Hfa] 2 puff INHALATION RT-Q6H PRN 09/14/16 11/17/17 History Rivaroxaban [Xarelto] 20 mg PO DAILY 03/28/17 11/17/17 History Ipratropium-Albuterol Nebulize 3 ml INHALATION RT-QID 10/14/17 11/17/17 History [Duoneb 0.5 mg-3 mg/3 ml Soln] Amiodarone [Cordarone] 400 mg PO DAILY #30 tab 10/21/17 11/17/17 Rx Budesonide [Pulmicort] 1 mg INHALATION RT-BID #20 nebu 10/21/17 11/17/17 Rx Formoterol Fumarate [Perforomist] 20 mcg INHALATION RT-BID #20 nebu 10/21/17 Rx Nicotine 21Mg/24Hr Patch [Habitrol] 1 patch TRANSDERM DAILY patch 10/21/17 Rx Pravastatin Sodium [Pravachol] 40 mg PO HS #30 tab 10/21/17 11/17/17 Rx Aspirin EC [Ecotrin Low Dose] 81 mg PO DAILY 10/24/17 11/17/17 History Furosemide [Lasix] 40 mg PO BID@0900,1600 tab 10/27/17 11/17/17 Rx HYDROcodone/APAP 10-325MG [[place] 1 tab PO Q6H PRN #10 tab 10/27/17 11/17/17 Rx 10-325] Insulin Detemir [Levemir] 10 unit SQ HS syr 10/27/17 11/17/17 Rx Magnesium Oxide [Mag-Ox] 400 mg PO TID tab 10/27/17 11/17/17 Rx Metoprolol Tartrate [Lopressor] 100 mg PO BID #90 tab 10/27/17 11/17/17 Rx Potassium Chloride ER [K-Dur 20] 20 meq PO DAILY tab.er.prt 10/27/17 11/17/17 Rx Spironolactone [Aldactone] 25 mg PO DAILY tab 10/27/17 11/17/17 Rx Thiamine [Vitamin B-1] 100 mg PO BID@1200,1700 tab 10/27/17 11/17/17 Rx Azithromycin [Zithromax] 500 mg PO DAILY #5 tab 11/12/17 11/17/17 Rx methylPREDNISolone Dose Pack See Taper PO DIRECTED 11/17/17 11/17/17 History [Medrol Dose Pack] Allergies Allergy/AdvReac Type Severity Reaction Status Date / Time cephalexin monohydrate Allergy Rash/Hives Verified 11/17/17 22:23 [From Keflex] Physical Exam Vitals: Vital Signs Temp Pulse Resp BP BP Pulse Ox 11/18/17 01:00 99.7 F H 123 H 114/71 99 11/18/17 00:53 18 11/18/17 00:50 142 H 114/71 91 L 11/18/17 00:40 122 H 114/71 93 L 11/18/17 00:32 92 L 11/18/17 00:17 99.7 F H 114/71 95 11/17/17 23:32 98.9 F 124 H 100 11/17/17 23:07 149 H 18 121/74 99 11/17/17 21:38 101.2 F H 169 H 24 109/73 96 Intake and Output 11/17/17 11/17/17 11/18/17 14:59 22:59 06:59 Other: Voiding Method Urinal Weight 76.657 kg 70.8 kg - Constitutional General appearance: no cooperative, disheveled, no acute distress - EENT Eyes: anicteric sclerae, EOMI, PERRLA, no scleral icterus - Neck Neck: no lymphadenopathy, no normal ROM - Respiratory Respiratory: bilateral: diminished, wheezing - Cardiovascular Rhythm: irregularly irregular Heart sounds: normal: S1, S2 - Gastrointestinal General gastrointestinal: normal bowel sounds, no tenderness - Integumentary Scab's on both upper extremities - Neurologic Neurologic: CNII-XII intact - Musculoskeletal Musculoskeletal: strength equal bilaterally - Psychiatric Psychiatric: A&O x's 3 Results CBC & Chem 7: 11/17/17 21:56 11/17/17 21:56 Labs: Abnormal Lab Results - Last 24 Hours (Table) 11/17/17 11/17/17 11/17/17 Range/Units 21:56 21:56 21:56 RBC 3.34 L (4.30-5.90) m/uL Hgb 9.0 L (13.0-17.5) gm/dL Hct 30.1 L (39.0-53.0) % MCHC 29.7 L (31.0-37.0) g/dL RDW 19.2 H (11.5-15.5) % Plt Count 149 L (150-450) k/uL Sodium 136 L (137-145) mmol/L Glucose 106 H (74-99) mg/dL POC Glucose (mg/dL) (75-99) mg/dL Calcium 8.1 L (8.4-10.2) mg/dL Total Creatine Kinase <20 L (55-170) U/L Total Protein 5.0 L (6.3-8.2) g/dL Albumin 2.7 L (3.5-5.0) g/dL 11/18/17 Range/Units 00:34 RBC (4.30-5.90) m/uL Hgb (13.0-17.5) gm/dL Hct (39.0-53.0) % MCHC (31.0-37.0) g/dL RDW (11.5-15.5) % Plt Count (150-450) k/uL Sodium (137-145) mmol/L Glucose (74-99) mg/dL POC Glucose (mg/dL) 122 H (75-99) mg/dL Calcium (8.4-10.2) mg/dL Total Creatine Kinase (55-170) U/L Total Protein (6.3-8.2) g/dL Albumin (3.5-5.0) g/dL Thrombosis Risk Factor Assmnt - Choose All That Apply Each Risk Factor Represents 2 Points: Age 61-74 years Thrombosis Risk Factor Assessment Total Risk Factor Score: 2 Thrombosis Risk Factor Assessment Level: Low Risk Assessment and Plan Plan: 1. Shortness of breath Multifactorial chronic in nature with possible mild worsening lately. Patient is quite difficult history and heart to obtain baseline and acuity of his symptoms Sputum production without any change in quality and quantity Continue nebulizers Add burst of systemic steroids Patient does not appear toxic or septic. He had one measurement of elevated temperature but without any accompanying symptomatology No leukocytosis and lactic acid normal He received broad-spectrum antibiotics in the emergency department His limited with choice of antibiotics due to stool listed ALLERGIES I will chest x-ray is without any infiltrates Clinically appears stable Blood cultures and urine cultures obtained We will obtain pro-calcitonin level. Hold antibiotics for now as levofloxacin has significant QT prolongation affect which can be a problem view of his amiodarone Consult pulmonary service 2. Atrial fibrillation with RVR Improvement with IV fluids and IV Lopressor Continue home Lopressor and amiodarone Based on the response may consider additional treatments Cardiology consultation Patient confirmed anticoagulation medications and we will restart his medications 3. Chronic systolic congestive heart failure Appears euvolemic and without any signs of fluid overload ProBNP is around 3000 which is down from 8000 a month ago Discontinue IV fluids for emergency department Hold Lasix for now Cardiology consulted 4. 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
[2017-11-18 02:04] LABS: Appearance,Urine Clear (Clear); Bilirubin,Urine Negative (Negative); Blood,Urine Negative (Negative); Color,Urine Yellow; Glucose,Urine (UA) Negative (Negative); Ketones,Urine Negative (Negative); Leukocyte Esterase,Urine Negative (Negative); Nitrite,Urine Negative (Negative); PH, Urine 7.5 (5.0-8.0); Protein,Urine Trace (Negative)
[2017-11-18] MEDS: METOPROLOL TARTRATE 50 MG TAB PO SCH ×3 (02:04→22:32)
[2017-11-18] MEDS ORDERED: methylPREDNISolone SOD SUCCI 125 MG/2 ML VIAL IV SCH (06:00)
[2017-11-18] MEDS: IPRATROPIUM-ALBUTEROL 3 ML NEB INHALATION SCH ×4 (07:31→19:56)
[2017-11-18] MEDS: BUDESONIDE 1 MG/2 ML NEBU INHALATION SCH ×2 (07:31→19:56)
--- NOTE | 2017-11-18 08:05 | CONS ---
CONSULTATION Mr. Hills is a 72-year-old male with known history of paroxysmal atrial fibrillation, history of severe chronic obstructive lung disease, chronic tobacco use, chronic alcohol intake, who presented with symptoms of progressive dyspnea and cough. He was recently discharged from the hospital and presented with the same symptoms. He denies any chest pain. He denies any dizziness or palpitation. In the emergency room, he was in atrial fibrillation with rapid ventricular response. The patient denies any dizziness or palpitation. After receiving his oral beta chidi, his heart rate improved. He continues to smoke about a pack a day. He used to smoke about a pack and half a day. He had a prior history of chronic alcohol intake. In the past, his left ventricular systolic function was preserved, although on a most recent echocardiogram, the ejection fraction was reported to be severely depressed. His coronary risk factors are positive for chronic tobacco use, hyperlipidemia, and diabetes mellitus. MEDICATIONS: His medications include amiodarone 400 mg daily, Lasix 40 mg twice a day, Pulmicort, aspirin, ProAir, DuoNeb, Lopressor 100 mg twice a day, potassium, Xarelto 20 mg daily, Aldactone 25 mg daily, thiamine, insulin and pravastatin 40 mg daily. REVIEW OF SYSTEMS: RESPIRATORY SYSTEM: He has chronic obstructive lung disease and chronic cough and chronic tobacco use. GI SYSTEM: No recent GI bleeding. No peptic ulcer disease. SYSTEM: No dysuria or hematuria. NERVOUS SYSTEM: No history of stroke or seizure. He is calmer this morning according to the nursing staff. PHYSICAL EXAMINATION: A 72-year-old male, alert, oriented, in no apparent distress. Blood pressure 118/70 with a heart rate in the low 100s. HEAD: Normocephalic. EYES: Sclerae anicteric. NECK: No bruit. LUNGS: With decreased air exchange, no wheezes. HEART: Irregular, irregular S1, S2. No S3 with a systolic murmur. No diastolic murmur. No rub. ABDOMEN: Soft, nontender. Positive bowel sounds. No organomegaly. EXTREMITIES: No edema. LAB DATA: Lab data revealed BUN and creatinine 13 and 0.9, potassium 4.5. Troponin less than 0.012. NT proBNP of 3150 which is lower than it has been in the last few admissions. EKG revealed atrial fibrillation with rapid ventricular response, right bundle branch block with left anterior fascicular block. Chest x-ray shows no infiltrate. IMPRESSION: 1. Progressive dyspnea probably related to exacerbation of chronic obstructive pulmonary disease. No clear evidence to suggest an infectious process at this time. 2. Chronic persistent atrial fibrillation anticoagulated. 3. History of cardiomyopathy during last admission, not documented in the past. At this time, there is no clear evidence of significant fluid overload. 4. History of chronic alcohol intake. 5. Hyperlipidemia. 6. Diabetes. RECOMMENDATION: From the cardiac standpoint, I will continue present therapy. I will add to his regimen an UMA inhibitor because of the recent cardiomyopathy. I will stop the aspirin since he is anticoagulated. Depending on his progress, further recommendation will be made. Thank you for this consult. We will follow with you. TOBIN / LEDA: [id number] /
[2017-11-18] MEDS ORDERED: ASPIRIN 81 MG PO SCH (09:00)
[2017-11-18] MEDS ORDERED: VANCOMYCIN 1,500 MG in SODIUM CHLORIDE 0.9% 250 ML IVPB SCH (09:00)
--- NOTE | 2017-11-18 09:08 | P.CNPUL ---
History of Present Illness Consult date: 11/18/17 Requesting physician: Jonathan Victor Reason for consult: dyspnea, COPD, abnormal CXR/CT Chief complaint: Shortness of breath, cough, alcohol intoxication History of present illness: Mr. Hills is a 72-year-old white male patient of Dr. Georges, was brought to the hospital per EMS on 11/17/2017 at 2134 for evaluation of increased shortness of breath, coughing, and alcohol intoxication. Patient has a known history of severe oxygen-dependent COPD, chronic alcohol abuse, alcoholic cardiomyopathy, chronic atrial fibrillation, congestive heart failure, hypertension, hyperlipidemia, CVA involving the temporal lobe, chronic anemia, cervical and lumbar stenosis, previous episodes of pneumonia, and chronic and ongoing nicotine abuse. He used to see Dr. Virk in the office for his history of COPD, however has not been seen in over a year's time other than in consultation when in the hospital. He continues to smoke. He was recently hospitalized for acute exacerbation of COPD, A. fib with RVR, and discharged home on 11/12/2017 on oral Zithromax, Medrol Dosepak, he is on Xarelto for chronic anticoagulation, amiodarone, nebulized Pulmicort, Perforomist, DuoNeb, oral diuretics in the form of Lasix 40 mg twice a day, Aldactone. Patient states his breathing was labored, but he denied any fever or chills, denied any increased chest congestion, denied any change in his sputum color or quantity. Denied any chest wall tenderness, denied any hemoptysis. Denied any swelling in lower extremities. No leukocytosis, the PVCs 9.1, hemoglobin is 9.0, sodium is 136, rest of electrolytes and renal profile were within normal limits, troponin was negative 1, proBNP was elevated at 3150. Urinalysis was noninfected, serum alcohol level was less than 10. Patient was found to be in A. fib with rapid ventricular rate, at a rate of 169 BPM. He was febrile on presentation with a temp of 101.2F. Plasma lactic acid was within normal limits at 1.8. Chest x-ray showed cardiomegaly, and small pleural effusions and this was compared to previous exam from 11/10/2017. He was given a dose of Levaquin and Vancomycin. IV Solu-Medrol, nebulized bronchodilators, she was given 2 doses of IV metoprolol in the emergency department, and currently his heart rate is better controlled, is in the range of 100 to 1:15 BPM. We"re consulted for pulmonary management. Review of Systems All systems: negative Constitutional: Denies chills, Denies fever Eyes: denies blurred vision, denies pain Ears, nose, mouth and throat: Denies headache, Denies sore throat Cardiovascular: Reports dyspnea on exertion, Reports irregular heart beat, Denies chest pain, Denies shortness of breath Respiratory: Reports cough with sputum, Reports dyspnea, Reports home oxygen, Reports respiratory infections, Reports wheezing, Denies cough Gastrointestinal: Denies abdominal pain, Denies diarrhea, Denies nausea, Denies vomiting Musculoskeletal: Denies myalgias Integumentary: Denies pruritus, Denies rash Neurological: Denies numbness, Denies weakness Psychiatric: Denies anxiety, Denies depression Endocrine: Denies fatigue, Denies weight change 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%, history cervical and lumbar spondylosis, carpal tunnel disease, paroxysmal atrial fibrillation, previous hospitalization for alcohol intoxication and altered mentation and previous history of fall with pulmonary contusion and traumatic right-sided fractures, history of delirium tremens, chronic atrial fibrillation, hypertension, hyperlipidemia, previous bouts of pneumonia, previous hospital physician for acute alcohol intoxication, kidney stones, cataracts, degenerative arthritis History of Any Multi-Drug Resistant Organisms: None Reported Past Surgical History: Back Surgery, Hernia Repair Additional Past Surgical History / Comment(s): right shoulder surgery, bilateral cataract surgery, umbilical hernia surgery, kidney stones removal, hammer toe surgery X3 with subsequent amputation of the second toe on right foot , pain injections through neurology, colonoscopy Past Anesthesia/Blood Transfusion Reactions: No Reported Reaction Past Psychological History: No Psychological Hx Reported Additional Psychological History / Comment(s): Lives with friend, Bekah Arriaga. she lives in the upstairs of his home. Smoking Status: Current every day smoker Past Alcohol Use History: Daily Additional Past Alcohol Use History / Comment(s): Smokes 1 PPD, USUALLY DRINKS "at least" A FIFTH OF VODKA BETWEEN 9PM-MIDNIGHT DAILY Past Drug Use History: None Reported - Past Family History Father Family Medical History: Diabetes Mellitus Mother History Unknown: Yes Additional Family Medical History / Comment(s): 2001 Medications and Allergies Home Medications Medication Instructions Recorded Confirmed Type Albuterol Sulfate [Proair Hfa] 2 puff INHALATION RT-Q6H PRN 09/14/16 11/17/17 History Rivaroxaban [Xarelto] 20 mg PO DAILY 03/28/17 11/17/17 History Ipratropium-Albuterol Nebulize 3 ml INHALATION RT-QID 10/14/17 11/17/17 History [Duoneb 0.5 mg-3 mg/3 ml Soln] Amiodarone [Cordarone] 400 mg PO DAILY #30 tab 10/21/17 11/17/17 Rx Budesonide [Pulmicort] 1 mg INHALATION RT-BID #20 nebu 10/21/17 11/17/17 Rx Formoterol Fumarate [Perforomist] 20 mcg INHALATION RT-BID #20 nebu 10/21/17 Rx Nicotine 21Mg/24Hr Patch [Habitrol] 1 patch TRANSDERM DAILY patch 10/21/17 Rx Pravastatin Sodium [Pravachol] 40 mg PO HS #30 tab 10/21/17 11/17/17 Rx Aspirin EC [Ecotrin Low Dose] 81 mg PO DAILY 10/24/17 11/17/17 History Furosemide [Lasix] 40 mg PO BID@0900,1600 tab 10/27/17 11/17/17 Rx HYDROcodone/APAP 10-325MG [[place] 1 tab PO Q6H PRN #10 tab 10/27/17 11/17/17 Rx 10-325] Insulin Detemir [Levemir] 10 unit SQ HS syr 10/27/17 11/17/17 Rx Magnesium Oxide [Mag-Ox] 400 mg PO TID tab 10/27/17 11/17/17 Rx Metoprolol Tartrate [Lopressor] 100 mg PO BID #90 tab 10/27/17 11/17/17 Rx Potassium Chloride ER [K-Dur 20] 20 meq PO DAILY tab.er.prt 10/27/17 11/17/17 Rx Spironolactone [Aldactone] 25 mg PO DAILY tab 10/27/17 11/17/17 Rx Thiamine [Vitamin B-1] 100 mg PO BID@1200,1700 tab 10/27/17 11/17/17 Rx Azithromycin [Zithromax] 500 mg PO DAILY #5 tab 11/12/17 11/17/17 Rx methylPREDNISolone Dose Pack See Taper PO DIRECTED 11/17/17 11/17/17 History [Medrol Dose Pack] Allergies Allergy/AdvReac Type Severity Reaction Status Date / Time cephalexin monohydrate Allergy Rash/Hives Verified 11/17/17 22:23 [From Keflex] Physical Exam Vitals: Vital Signs Temp Pulse Resp BP BP Pulse Ox 11/18/17 07:46 104 H 11/18/17 07:32 121 H 11/18/17 06:00 112 H 24 118/70 98 11/18/17 05:00 113 H 24 107/69 98 11/18/17 04:00 110 H 24 114/68 96 11/18/17 03:00 110 H 107/70 99 11/18/17 02:00 112 H 20 112/69 99 11/18/17 01:00 99.7 F H 123 H 114/71 99 11/18/17 00:53 18 11/18/17 00:50 142 H 114/71 91 L 11/18/17 00:40 122 H 114/71 93 L 11/18/17 00:32 92 L 11/18/17 00:17 99.7 F H 114/71 95 11/17/17 23:32 98.9 F 124 H 100 11/17/17 23:07 149 H 18 121/74 99 11/17/17 21:38 101.2 F H 169 H 24 109/73 96 Intake and Output 11/17/17 11/18/17 11/18/17 22:59 06:59 14:59 Other: Voiding Method Urinal Weight 76.657 kg 70.8 kg GENERAL EXAM: Alert, 72-year-old white male comfortable in no apparent distress. HEAD: Normocephalic/atraumatic. EYES: Normal reaction of pupils, equal size. Conjunctiva pink, sclera white. NOSE: Clear with pink turbinates. THROAT: No erythema or exudates. NECK: No masses, no JVD, no thyroid enlargement, no adenopathy. CHEST: No chest wall deformity. Symmetrical expansion. LUNGS: Scattered diffuse rhonchi, and wheezes bilaterally, congestive cough with production of white sputum CVS: Regular rate and rhythm, normal S1 and S2, no gallops, no murmurs, no rubs ABDOMEN: Soft, nontender. No hepatosplenomegaly, normal bowel sounds, no guarding or rigidity. EXTREMITIES: No clubbing, no edema, no cyanosis, 2+ pulses and upper and lower extremities. MUSCULOSKELETAL: Muscle strength and tone normal. SPINE: No scoliosis or deformity SKIN: No rashes CENTRAL NERVOUS SYSTEM: Alert and oriented -3. No focal deficits, tone is normal in all 4 extremities. PSYCHIATRIC: Alert and oriented -3. Appropriate affect. Intact judgment and insight. Results - Laboratory Findings CBC and BMP: 11/17/17 21:56 11/17/17 21:56 PT/INR, D-dimer PT 11.0 sec (9.0-12.0) 11/17/17 21:56 INR 1.1 (<1.2) 11/17/17 21:56 Abnormal lab findings: Abnormal Labs 11/17/17 11/17/17 11/17/17 01:50 21:56 21:56 RBC 3.34 L Hgb 9.0 L Hct 30.1 L MCHC 29.7 L RDW 19.2 H Plt Count 149 L Sodium 136 L Glucose 106 H POC Glucose (mg/dL) Calcium 8.1 L Total Creatine Kinase Total Protein 5.0 L Albumin 2.7 L Urine Protein Trace H 11/17/17 11/18/17 21:56 00:34 RBC Hgb Hct MCHC RDW Plt Count Sodium Glucose POC Glucose (mg/dL) 122 H Calcium Total Creatine Kinase <20 L Total Protein Albumin Urine Protein - Diagnostic Findings Chest x-ray: report reviewed, image reviewed Additional studies: EKG reviewed Assessment and Plan Plan: Assessment: #1. Acute exacerbation of chronic obstructive pulmonary disease #2. Atrial fibrillation with rapid ventricular response #3. Acute on chronic hypoxic respiratory failure and worsening dyspnea secondary to the above #4. Advanced oxygen-dependent COPD, patient wears home O2 at 3 L/m #5. Recent hospitalization for COPD and A. fib with RVR, discharge home on #6. Chronic atrial fibrillation, on oral anticoagulation in the form of Xarelto. #7. Chronic and ongoing EtOH abuse #8. Chronic and ongoing nicotine abuse #9. Chronic congestive heart failure with systolic dysfunction #10. Hypertension, hyperlipidemia #11. History of CVA involving the temporal lobe #12. Chronic anemia #13. Cervical lumbar stenosis Plan: Continue with IV steroids, no need for antibiotics at this time, patient does not appear to be infected, he has just completed a course of oral Zithromax, no evidence of infiltrates on the chest x-rays, no fever, no chills, no leukocytosis, no purulent phlegm production. Continue with Pulmicort, will perform his, continue DuoNeb [id number]. We'll restart home dose of Lasix. Continue oral anticoagulation. Patient's heart rate is better controlled, he is awaiting a bed on selective care unit. We'll continue to follow I performed a history & physical examination of the patient and discussed their management with my nurse practitioner, Carolina Cochran. I reviewed the nurse practitioner's note and agree with the documented findings and plan of care. Lung sounds are positive for diffuse wheezes and rhonchi. The findings and the impression was discussed with the patient. I attest to the documentation by the nurse practitioner. Time with Patient: Greater than 30
[2017-11-18] MEDS: LISINOPRIL 2.5 MG TAB PO SCH ×2 (10:19→20:10)
[2017-11-18] MEDS: SPIRONOLACTONE 25 MG TAB PO SCH (10:19)
[2017-11-18] MEDS: FUROSEMIDE 40 MG TAB PO SCH ×2 (10:20→16:29)
[2017-11-18] MEDS: guaiFENesin 600 MG TABLET.ER PO SCH ×2 (10:20→20:10)
[2017-11-18] MEDS: RIVAROXABAN 20 MG TAB PO SCH (10:20)
[2017-11-18] MEDS: AMIODARONE 200 MG TAB PO SCH (10:22)
[2017-11-18] MEDS: NICOTINE 21MG/24HR PATCH TRANSDERM SCH (10:36)
--- NOTE | 2017-11-18 13:18 | P.PN ---
Subjective Progress Note Date: 11/18/17 Principal diagnosis: The patient is a 72-year-old male with a past medical history of chronic respiratory failure secondary to COPD known to be oxygen dependent at 3 L nasal cannula at his baseline who presents to the ER with chief complaints of progressive worsening dyspnea, patient has a history of alcohol cardiomyopathy with a last known ejection fraction of 20%, and has a history of chronic atrial fibrillation and alcohol dependence. This is the patient's third admission secondary to social issues. Apparently the patient has a court-appointed guardian who resides with him and who now has stage IV pancreatic cancer, at last admission. APS was involved with plans to change guardianship at that time. The patient does report some shortness of breath seems to be improved, does report wheezing. Patient denies any recent alcohol use and reports that he has been abstaining from alcohol since his prior last admission due to his history of alcoholic cardiomyopathy with last ejection fraction of 20%. The patient does however continue to smoke. Patient presented with A. fib with RVR with heart rate in the 160s, is maintained on amiodarone and was given IV Lopressor and his heart rate now is down to the low 100s. Objective - Vital Signs Vital signs: Vital Signs Temp 98.8 F 11/18/17 12:00 Pulse 110 H 11/18/17 12:00 Resp 24 11/18/17 12:00 BP 114/74 11/18/17 12:00 Pulse Ox 100 11/18/17 12:00 Intake & Output 11/17/17 11/18/17 11/18/17 18:59 06:59 18:59 Intake Total 250 Output Total 200 Balance 50 Weight 70.8 kg Intake: Oral 250 Output: Urine 200 Other: Voiding Method Urinal Urinal # Bowel Movements 1 - Exam Constitutional: No acute distress, appears annoyed, agitated Eyes: Anicteric sclerae, moist conjunctiva, no lid-lag, PERRLA ENMT: NC/AT,Oropharynx clear, no erythema, exudates Neck:Supple, FROM, no masses, or JVD, No carotid bruits; No thyromegaly Lungs: Coarse sounding breath sounds in the bases with mild wheezes and diminished in the bases, Clear to percussion, Normal respiratory effort, no accessory muscle use on 3 L nasal cannula Cardiovascular: Irregularly irregular tachycardic, No murmurs, gallops, or rubs no peripheral edema Abdominal: Soft Nontender, nom distended, no guarding, no rebound or rigidity, Normoactive bowel sounds No hepatomegaly, No splenomegaly, No palpable mass No abdominal wall hernia noted Skin: Normal temperature, tone, texture, turgor, No induration No subcutaneous nodules, No rash, lesions, No ulcers Extremities:No digital cyanosis No clubbing, Pedal pulses intact and symmetrical Radial pulses intact and symmetrical Normal gait and station, No calf tenderness Psychiatric: Alert and oriented to person, place and time, Appropriate affect Intact judgement Neuro: Muscles Strength 5/5 in all 4 extremities, Sensation to light touch grossly present throughout, Cranial nerves II-XII grossly intact. No focal sensory deficits - Labs CBC & Chem 7: 11/17/17 21:56 11/17/17 21:56 Labs: Abnormal Lab Results - Last 24 Hours (Table) 11/17/17 11/17/17 11/17/17 Range/Units 01:50 21:56 21:56 RBC 3.34 L (4.30-5.90) m/uL Hgb 9.0 L (13.0-17.5) gm/dL Hct 30.1 L (39.0-53.0) % MCHC 29.7 L (31.0-37.0) g/dL RDW 19.2 H (11.5-15.5) % Plt Count 149 L (150-450) k/uL Sodium 136 L (137-145) mmol/L Glucose 106 H (74-99) mg/dL POC Glucose (mg/dL) (75-99) mg/dL Calcium 8.1 L (8.4-10.2) mg/dL Total Creatine Kinase (55-170) U/L Total Protein 5.0 L (6.3-8.2) g/dL Albumin 2.7 L (3.5-5.0) g/dL Urine Protein Trace H (Negative) 11/17/17 11/18/17 Range/Units 21:56 00:34 RBC (4.30-5.90) m/uL Hgb (13.0-17.5) gm/dL Hct (39.0-53.0) % MCHC (31.0-37.0) g/dL RDW (11.5-15.5) % Plt Count (150-450) k/uL Sodium (137-145) mmol/L Glucose (74-99) mg/dL POC Glucose (mg/dL) 122 H (75-99) mg/dL Calcium (8.4-10.2) mg/dL Total Creatine Kinase <20 L (55-170) U/L Total Protein (6.3-8.2) g/dL Albumin (3.5-5.0) g/dL Urine Protein (Negative) Microbiology - Last 24 Hours (Table) 11/17/17 00:00 Urine Culture - Preliminary Urine,Voided Assessment and Plan (1) Acute on chronic respiratory failure with hypoxia Narrative/Plan: * Secondary to acute COPD exacerbation/ cardiomyopathy and CHF appears to be stable * Continue supplemental oxygen at 3 L which is his baseline * Chest x-ray shows only small pleural effusions no overt heart failure Current Visit: Yes Status: Acute Code(s): J96.21 - ACUTE AND CHRONIC RESPIRATORY FAILURE WITH HYPOXIA SNOMED Code(s): 96685328 (2) Acute exacerbation of chronic obstructive airways disease Narrative/Plan: * Appreciate pulmonary recommendations * Continue with IV Solu-Medrol, Pulmicort and scheduled and when necessary breathing treatments Current Visit: No Status: Acute Code(s): J44.1 - CHRONIC OBSTRUCTIVE PULMONARY DISEASE W (ACUTE) EXACERBATION SNOMED Code(s): 334910960 (3) Atrial fibrillation with rapid ventricular response Narrative/Plan: * History of chronic A. fib now with RVR (HR improving) * Continue with amiodarone/metoprolol and anticoagulation with Xarelto Current Visit: Yes Status: Acute Code(s): I48.91 - UNSPECIFIED ATRIAL FIBRILLATION SNOMED Code(s): 823528799143419 (4) Alcoholic cardiomyopathy Narrative/Plan: * Appears stable resume home Lasix Current Visit: Yes Status: Acute Code(s): I42.6 - ALCOHOLIC CARDIOMYOPATHY SNOMED Code(s): 080933562 (5) Systolic CHF, chronic Current Visit: Yes Status: Acute Code(s): I50.22 - CHRONIC SYSTOLIC ( CONGESTIVE) HEART FAILURE SNOMED Code(s): 667799175 (6) EtOH dependence Narrative/Plan: * Continue to monitor for signs of withdrawal * Symptom triggered CIWA protocol in place Current Visit: No Status: Acute Code(s): F10.20 - ALCOHOL DEPENDENCE, UNCOMPLICATED SNOMED Code(s): 51391847 Plan: Anticipated discharge * 2-3 days
[2017-11-18] MEDS: THIAMINE 100 MG TAB PO SCH ×2 (13:22→18:05)
[2017-11-18] MEDS: methylPREDNISolone SOD SUCCI 40 MG/ML 1 ML VIAL IV SCH (16:32)
[2017-11-18] MEDS: FORMOTEROL FUMARATE 20 MCG/2 ML NEBU INHALATION SCH (19:56)
[2017-11-18] MEDS ORDERED: HYDROcodone/APAP 5-325MG 1 EACH TAB PO PRN (20:28)
[2017-11-18] MEDS ORDERED: PRAVASTATIN SODIUM 40 MG TAB PO SCH (21:00)
[2017-11-19] MEDS: methylPREDNISolone SOD SUCCI 40 MG/ML 1 ML VIAL IV SCH ×2 (00:30→08:53)
[2017-11-19 04:27] LABS: Anion Gap 9 mmol/L; Blood Urea Nitrogen 23 mg/dL (9-20); Calcium 8.5 mg/dL (8.4-10.2); Carbon Dioxide 22 mmol/L (22-30); Chloride 105 mmol/L (98-107); Glucose 160 mg/dL (74-99); Sodium 136 mmol/L (137-145)
[2017-11-19 04:30] LABS: Anisocytosis Slight; Basophils % (A) 0 %; Eosinophils % (A) 0 %; HCT 30.2 % (39.0-53.0); HGB 9.5 gm/dL (13.0-17.5); Hypochromasia Slight; Lymphocytes # (A) 0.8 k/uL (1.0-4.8); Lymphocytes % (A) 10 %; MCH 27.3 pg (25.0-35.0); MCHC 31.5 g/dL (31.0-37.0); MCV 86.5 fL (80.0-100.0); Mean Platelet Volume 8.4; Monocytes # (A) 0.4 k/uL (0-1.0); Monocytes % (A) 6 %; Neutrophils # (A) 6.1 k/uL (1.3-7.7); Neutrophils % (A) 82 %; Platelet Count 178 k/uL (150-450); RBC 3.49 m/uL (4.30-5.90); WBC 7.5 k/uL (3.8-10.6)
[2017-11-19] MEDS: BUDESONIDE 1 MG/2 ML NEBU INHALATION SCH (07:04)
[2017-11-19] MEDS: IPRATROPIUM-ALBUTEROL 3 ML NEB INHALATION SCH ×2 (07:04→11:06)
[2017-11-19] MEDS: FORMOTEROL FUMARATE 20 MCG/2 ML NEBU INHALATION SCH (07:05)
--- NOTE | 2017-11-19 07:36 | PN ---
PROGRESS NOTE Mr. Hills is a 72-year-old male with known history of chronic obstructive lung disease, chronic tobacco use and alcohol intake, history of atrial fibrillation, who presented with worsening dyspnea and symptoms of exacerbation of COPD with chronic persistent atrial fibrillation with episode of rapid ventricular response. He is sleepy but has no symptoms of chest pain. He is anxious to go home. He denies any dizziness or palpitation. He denies any nausea. Hemodynamically he has been stable. He continues to be at this time on amiodarone 400 mg daily, furosemide 40 mg twice a day, lisinopril 2.5 mg twice a day, metoprolol tartrate 100 mg twice a day, methylprednisolone, nicotine patch, pravastatin 40 mg daily, Xarelto 20 mg daily, and spironolactone 25 mg daily. PHYSICAL EXAMINATION: Blood pressure 100/69 with the heart rate in the 90s. LUNGS: Decreased air exchange with scattered wheezes. HEART: Irregular, irregular, S1, S2. No S3. No rub. ABDOMEN: Soft, nontender. EXTREMITIES: No edema. LAB DATA: Lab data revealed BUN and creatinine 23 and 0.8. Hemoglobin of 9.5. IMPRESSION: 1. Exacerbation of chronic obstructive pulmonary disease in a patient with chronic obstructive lung disease and chronic tobacco use. 2. Chronic persistent atrial fibrillation, anticoagulated with controlled ventricular response. 3. Advanced chronic obstructive pulmonary disease. 4. Chronic alcohol intake. 5. Chronic tobacco use. 6. Anemia. RECOMMENDATION: From the cardiac standpoint, he is stable. We will increase his level activity and continue on the present medical regimen. MMODL / IJN: [id number] /
--- NOTE | 2017-11-19 09:06 | P.PN ---
Subjective Progress Note Date: 11/19/17 Principal diagnosis: Acute exacerbation of chronic obstructive pulmonary disease, atrial fibrillation and rapid ventricular response Mr. Hills is a 72-year-old white male patient of Dr. Georges, was brought to the hospital per EMS on 11/17/2017 at 2134 for evaluation of increased shortness of breath, coughing, and alcohol intoxication. Patient has a known history of severe oxygen-dependent COPD, chronic alcohol abuse, alcoholic cardiomyopathy, chronic atrial fibrillation, congestive heart failure, hypertension, hyperlipidemia, CVA involving the temporal lobe, chronic anemia, cervical and lumbar stenosis, previous episodes of pneumonia, and chronic and ongoing nicotine abuse. He used to see Dr. Virk in the office for his history of COPD, however has not been seen in over a year's time other than in consultation when in the hospital. He continues to smoke. He was recently hospitalized for acute exacerbation of COPD, A. fib with RVR, and discharged home on 11/12/2017 on oral Zithromax, Medrol Dosepak, he is on Xarelto for chronic anticoagulation, amiodarone, nebulized Pulmicort, Perforomist, DuoNeb, oral diuretics in the form of Lasix 40 mg twice a day, Aldactone. Patient states his breathing was labored, but he denied any fever or chills, denied any increased chest congestion, denied any change in his sputum color or quantity. Denied any chest wall tenderness, denied any hemoptysis. Denied any swelling in lower extremities. No leukocytosis, the PVCs 9.1, hemoglobin is 9.0, sodium is 136, rest of electrolytes and renal profile were within normal limits, troponin was negative 1, proBNP was elevated at 3150. Urinalysis was noninfected, serum alcohol level was less than 10. Patient was found to be in A. fib with rapid ventricular rate, at a rate of 169 BPM. He was febrile on presentation with a temp of 101.2F. Plasma lactic acid was within normal limits at 1.8. Chest x-ray showed cardiomegaly, and small pleural effusions and this was compared to previous exam from 11/10/2017. He was given a dose of Levaquin and Vancomycin. IV Solu-Medrol, nebulized bronchodilators, she was given 2 doses of IV metoprolol in the emergency department, and currently his heart rate is better controlled, is in the range of 100 to 1:15 BPM. We"re consulted for pulmonary management. On 11/19/2017 patient seen again in follow-up in the intensive care unit, he remains a selective care overflow. He is awake and alert, he denies any distress, he reports his breathing is much improved, he is currently on room air , he is wearing his oxygen intermittently, on 3 L per nasal, his pulse ox is 95% , he is afebrile, vital signs are stable, he is afebrile, he remains in A. fib, and his heart rate is ranging from 110-116 BPM, he denies any worsening dyspnea , his lung sounds are less bronchospastic and congested on today's exam. Minimal wheezes, only occasional cough with production of whitish sputum. Sputum and blood cultures are pending. Denies any fever or chills. Patient is a bit agitated today and irritable, he is requesting to go home today. Patient has been treated with IV steroids, nebulized bronchodilators, he is on his oral anticoagulation for his A. fib, beta blockers, and amiodarone. He has significantly improved, and from pulmonary standpoint patient is stable for discharge home today. Objective - Vital Signs Vital signs: Vital Signs Temp 97.7 F 11/19/17 04:00 Pulse 92 11/19/17 07:34 Resp 16 11/19/17 07:07 BP 100/69 11/19/17 04:00 Pulse Ox 95 11/19/17 04:00 Intake & Output 11/18/17 11/19/17 11/19/17 18:59 06:59 18:59 Intake Total 610 450 Output Total 1000 1999 Balance -390 -1550 Weight 68.6 kg Intake: Oral 610 450 Output: Urine 1000 1999 Other: Voiding Method Urinal Bedside Commode # Bowel Movements 1 - Exam GENERAL EXAM: Alert, 72-year-old white male comfortable in no apparent distress. HEAD: Normocephalic/atraumatic. EYES: Normal reaction of pupils, equal size. Conjunctiva pink, sclera white. NOSE: Clear with pink turbinates. THROAT: No erythema or exudates. NECK: No masses, no JVD, no thyroid enlargement, no adenopathy. CHEST: No chest wall deformity. Symmetrical expansion. LUNGS: Minimal wheezes bilaterally, only occasional cough with production of small amount of white sputum. CVS: Regular rate and rhythm, normal S1 and S2, no gallops, no murmurs, no rubs ABDOMEN: Soft, nontender. No hepatosplenomegaly, normal bowel sounds, no guarding or rigidity. EXTREMITIES: No clubbing, no edema, no cyanosis, 2+ pulses and upper and lower extremities. MUSCULOSKELETAL: Muscle strength and tone normal. SPINE: No scoliosis or deformity SKIN: No rashes CENTRAL NERVOUS SYSTEM: Alert and oriented -3. No focal deficits, tone is normal in all 4 extremities. PSYCHIATRIC: Alert and oriented -3. Appropriate affect. Intact judgment and insight. - Labs CBC & Chem 7: 11/19/17 03:40 11/19/17 03:40 Labs: Abnormal Lab Results - Last 24 Hours (Table) 11/18/17 11/19/17 11/19/17 Range/Units 21:56 03:40 03:40 RBC 3.49 L (4.30-5.90) m/uL Hgb 9.5 L (13.0-17.5) gm/dL Hct 30.2 L (39.0-53.0) % RDW 19.0 H (11.5-15.5) % Lymphocytes # 0.8 L (1.0-4.8) k/uL Sodium 136 L (137-145) mmol/L BUN 23 H (9-20) mg/dL Glucose 160 H (74-99) mg/dL Procalcitonin 0.20 H (0.02-0.09) ng/mL Microbiology - Last 24 Hours (Table) 11/18/17 16:14 Gram Stain - Preliminary Sputum Sputum Culture - Preliminary 11/17/17 21:56 Blood Culture - Preliminary Blood No Growth after 24 hours 11/17/17 00:00 Urine Culture - Preliminary Urine,Voided Assessment and Plan Plan: Assessment: #1. Acute exacerbation of chronic obstructive pulmonary disease #2. Atrial fibrillation with rapid ventricular response #3. Acute on chronic hypoxic respiratory failure and worsening dyspnea secondary to the above #4. Advanced oxygen-dependent COPD, patient wears home O2 at 3 L/m #5. Recent hospitalization for COPD and A. fib with RVR, discharge home on #6. Chronic atrial fibrillation, on oral anticoagulation in the form of Xarelto. #7. Chronic and ongoing EtOH abuse #8. Chronic and ongoing nicotine abuse #9. Chronic congestive heart failure with systolic dysfunction #10. Hypertension, hyperlipidemia #11. History of CVA involving the temporal lobe #12. Chronic anemia #13. Cervical lumbar stenosis Plan: Patient remains stable, and is improving. Less bronchospastic, and congested. He is wearing her oxygen only intermittently, he is maintaining pulse ox at 97- 98%, his A. fib is better controlled, is in the range of 100 to 115 BPM. Denies any worsening dyspnea, denies any chest pain. Is requesting to go home today, he is pretty near his baseline. He has oxygen at home, the nebulizer machine. No fever no chills, no chest wall tenderness, no purulent phlegm production. Patient is stable for discharge home from pulmonary standpoint on a prednisone taper, his maintenance inhalers and nebulized treatments. I'll of Dr. Virk in the office in 7-10 days. I performed a history & physical examination of the patient and discussed their management with my nurse practitioner, Carolina Cochran. I reviewed the nurse practitioner's note and agree with the documented findings and plan of care. Lung sounds are positive for diffuse wheezes and rhonchi. The findings and the impression was discussed with the patient. I attest to the documentation by the nurse practitioner. Time with Patient: Less than 30
[2017-11-19] MEDS: SPIRONOLACTONE 25 MG TAB PO SCH (09:07)
[2017-11-19] MEDS: AMIODARONE 200 MG TAB PO SCH (09:08)
[2017-11-19] MEDS: RIVAROXABAN 20 MG TAB PO SCH (09:08)
[2017-11-19] MEDS: METOPROLOL TARTRATE 50 MG TAB PO SCH (09:08)
[2017-11-19] MEDS: NICOTINE 21MG/24HR PATCH TRANSDERM SCH (09:09)
[2017-11-19] MEDS: FUROSEMIDE 40 MG TAB PO SCH (09:09)
[2017-11-19] MEDS: guaiFENesin 600 MG TABLET.ER PO SCH (09:09)
[2017-11-19] MEDS: LISINOPRIL 2.5 MG TAB PO SCH (09:09)
[2017-11-19 09:32] VITALS: TEMP 98.8
--- NOTE | 2017-11-19 10:03 | P.DS ---
Providers Date of admission: 11/17/17 23:59 Expected date of discharge: 11/19/17 Attending physician: Jonathan Victor MD Consults: 11/18/17 01:20 Consult Physician Routine Consulting Provider: Diego Virk Consult Reason/Comments: pneum Do you want consulting provider notified?: Yes, Notify in am 11/18/17 01:23 Consult Physician Routine Consulting Provider: Salvador Bermudez Consult Reason/Comments: A fib Do you want consulting provider notified?: Yes, Notify in am Primary care physician: Darrick Georges - Discharge Diagnosis(es) (1) Acute on chronic respiratory failure with hypoxia Current Visit: Yes Status: Acute (2) Acute exacerbation of chronic obstructive airways disease Current Visit: No Status: Acute (3) Atrial fibrillation with rapid ventricular response Current Visit: Yes Status: Acute (4) Alcoholic cardiomyopathy Current Visit: Yes Status: Acute (5) Systolic CHF, chronic Current Visit: Yes Status: Acute (6) EtOH dependence Current Visit: No Status: Acute Hospital Course: The patient is a 72-year-old male that was admitted with acute on chronic respiratory failure secondary to an acute COPD exacerbation, he was started on IV Solu-Medrol scheduled and when necessary bronchodilator breathing treatments. The patient is a history of alcoholic cardiomyopathy with last known ejection fraction of 20%, he also has a history of chronic atrial fibrillation and presented with A. fib with RVR with heart rate in the 160s, he was started on amiodarone, IV Lopressor and metoprolol. On presentation the patient was noted to be febrile with the T-max of 101.2, workup was negative for any suggestion of any infectious etiology. Given the patient had previously been here and recently received a full course of Z-Tuan and here did not appear to be septic he was not treated with any antibiotics. On chest x- ray the patient was noted to have cardiomegaly with small pleural effusions. The patient's alcoholic cardiomyopathy and systolic CHF appeared stable and he was continued on his home Lasix regimen, along with metoprolol, lisinopril and spironolactone With treatment we are able to control his ventricular rate. The patient was placed on symptom triggered [facility] alcohol withdrawal protocol but did not display any signs of alcohol withdrawal or DTs. There was concern for the patient's home social situation, as a patient had previously been complaining and requesting that his guardian be changed. Social work was consulted and apparently during the hot last hospitalization APS was consulted and are in the process of trying to change the patient's guardianship. On day of discharge patient appeared unlabored and comfortable, requesting to go home. She reported that he had a 4 wheeled walker at home a raised toilet seat and a pill tray to remember to take his medications. He also reports that he gets 7 diiner meals per week from the [employer] and was agreeable to receiving home health. We are able to set up home health for the patient prior to discharge and he was subsequently sent home in stable condition instructed to follow-up with his PCP Dr. Mehta. This discharge process took approximately 35 minutes. No new prescriptions were given at discharge Patient Condition at Discharge: Stable Plan - Discharge Summary New Discharge Prescriptions: No Action Albuterol Sulfate [Proair Hfa] 2 puff INHALATION RT-Q6H PRN PRN Reason: Shortness Of Breath Rivaroxaban [Xarelto] 20 mg PO DAILY Ipratropium-Albuterol Nebulize [Duoneb 0.5 mg-3 mg/3 ml Soln] 3 ml INHALATION RT-QID Amiodarone [Cordarone] 400 mg PO DAILY #30 tab Pravastatin Sodium [Pravachol] 40 mg PO HS #30 tab Budesonide [Pulmicort] 1 mg INHALATION RT-BID #20 nebu Formoterol Fumarate [Perforomist] 20 mcg INHALATION RT-BID #20 nebu Nicotine 21Mg/24Hr Patch [Habitrol] 1 patch TRANSDERM DAILY patch Aspirin EC [Ecotrin Low Dose] 81 mg PO DAILY Furosemide [Lasix] 40 mg PO BID@0900,1600 tab Insulin Detemir [Levemir] 10 unit SQ HS syr Magnesium Oxide [Mag-Ox] 400 mg PO TID tab Potassium Chloride ER [K-Dur 20] 20 meq PO DAILY tab.er.prt Spironolactone [Aldactone] 25 mg PO DAILY tab Thiamine [Vitamin B-1] 100 mg PO BID@1200,1700 tab HYDROcodone/APAP 10-325MG [Brunswick 10-325] 1 tab PO Q6H PRN #10 tab PRN Reason: Pain Metoprolol Tartrate [Lopressor] 100 mg PO BID #90 tab Azithromycin [Zithromax] 500 mg PO DAILY #5 tab methylPREDNISolone Dose Pack [Medrol Dose Pack] See Taper PO DIRECTED Discharge Medication List Albuterol Sulfate [Proair Hfa] 2 puff INHALATION RT-Q6H PRN 09/14/16 [History] Rivaroxaban [Xarelto] 20 mg PO DAILY 03/28/17 [History] Ipratropium-Albuterol Nebulize [Duoneb 0.5 mg-3 mg/3 ml Soln] 3 ml INHALATION RT -QID 10/14/17 [History] Amiodarone [Cordarone] 400 mg PO DAILY #30 tab 10/21/17 [Rx] Budesonide [Pulmicort] 1 mg INHALATION RT-BID #20 nebu 10/21/17 [Rx] Formoterol Fumarate [Perforomist] 20 mcg INHALATION RT-BID #20 nebu 10/21/17 [Rx ] Nicotine 21Mg/24Hr Patch [Habitrol] 1 patch TRANSDERM DAILY patch 10/21/17 [Rx] Pravastatin Sodium [Pravachol] 40 mg PO HS #30 tab 10/21/17 [Rx] Aspirin EC [Ecotrin Low Dose] 81 mg PO DAILY 10/24/17 [History] Furosemide [Lasix] 40 mg PO BID@0900,1600 tab 10/27/17 [Rx] HYDROcodone/APAP 10-325MG [Brunswick 10-325] 1 tab PO Q6H PRN #10 tab 10/27/17 [Rx] Insulin Detemir [Levemir] 10 unit SQ HS syr 10/27/17 [Rx] Magnesium Oxide [Mag-Ox] 400 mg PO TID tab 10/27/17 [Rx] Metoprolol Tartrate [Lopressor] 100 mg PO BID #90 tab 10/27/17 [Rx] Potassium Chloride ER [K-Dur 20] 20 meq PO DAILY tab.er.prt 10/27/17 [Rx] Spironolactone [Aldactone] 25 mg PO DAILY tab 10/27/17 [Rx] Thiamine [Vitamin B-1] 100 mg PO BID@1200,1700 tab 10/27/17 [Rx] Azithromycin [Zithromax] 500 mg PO DAILY #5 tab 11/12/17 [Rx] methylPREDNISolone Dose Pack [Medrol Dose Pack] See Taper PO DIRECTED [History] Follow up Appointment(s)/Referral(s): Diego Virk DO [Doctor of Osteopathic Medicine] - 1 Week
[2017-11-19 11:37] VITALS: RESP 20
[2017-11-19 13:02] VITALS: BP 83/53; PULSE 112
[2017-11-19] MEDS: THIAMINE 100 MG TAB PO SCH (15:11)
== END 2017-11-19 16:01 | disposition home health service (06) | DRG 190 ==
LOC: EC 21:34 → 6ICU 23:59
PROVIDERS: ADMIT Hospitalist; ATTEND Hospitalist
DX: J44.1 Chronic obstructive pulmonary disease with (acute) exacerbation (principal); E43 Unspecified severe protein-calorie malnutrition; J96.21 Acute and chronic respiratory failure with hypoxia; I50.22 Chronic systolic (congestive) heart failure; I42.6 Alcoholic cardiomyopathy; I11.0 Hypertensive heart disease with heart failure; I48.2 Chronic atrial fibrillation; I45.10 Unspecified right bundle-branch block; E78.5 Hyperlipidemia, unspecified; E11.9 Type 2 diabetes mellitus without complications; D64.9 Anemia, unspecified; F10.20 Alcohol dependence, uncomplicated; M47.812 Spondylosis without myelopathy or radiculopathy, cervical region; M19.91 Primary osteoarthritis, unspecified site; M48.061 Spinal stenosis, lumbar region without neurogenic claudication; M47.816 Spondylosis without myelopathy or radiculopathy, lumbar region; R62.7 Adult failure to thrive; Z68.20 Body mass index [BMI] 20.0-20.9, adult; F17.210 Nicotine dependence, cigarettes, uncomplicated; Z71.6 Tobacco abuse counseling; Z99.81 Dependence on supplemental oxygen; Z79.82 Long term (current) use of aspirin; Z79.01 Long term (current) use of anticoagulants; Z79.4 Long term (current) use of insulin; Z79.51 Long term (current) use of inhaled steroids; Z79.899 Other long term (current) drug therapy; Z87.01 Personal history of pneumonia (recurrent); Z87.81 Personal history of (healed) traumatic fracture; Z87.442 Personal history of urinary calculi; Z85.07 Personal history of malignant neoplasm of pancreas; Z86.73 Personal history of transient ischemic attack (TIA), and cerebral infarction without residual deficits; Z98.42 Cataract extraction status, left eye; Z98.41 Cataract extraction status, right eye; Z88.1 Allergy status to other antibiotic agents; Z83.3 Family history of diabetes mellitus; Y90.0 Blood alcohol level of less than 20 mg/100 ml
CPT/HCPCS: 36415; 71046; 80048; 80053; 80320; 81003; 82550; 82553; 83605; 83880; 84145; 84484; 85025; 85610; 85730; 87040; 87070; 87086; 87205; 93005; 94640; 96365; 96366; 96367; 96375; 96376; 99285

== ENCOUNTER 2017-11-28 15:07 | Inpatient (IN) | payer MEDICARE ==
[2017-11-28] MEDS ORDERED: IPRATROPIUM 0.5 MG/2.5 ML NEBU INHALATION STA (15:29)
[2017-11-28] MEDS ORDERED: methylPREDNISolone SOD SUCCI 125 MG/2 ML VIAL IV STA (15:29)
[2017-11-28] MEDS ORDERED: ALBUTEROL NEBULIZED 2.5 MG/3 ML INHALATION STA (15:29)
[2017-11-28] MEDS ORDERED: DILTIAZEM DRIP BOLUS FROM BAG 1 MG SOLN IV ONE (15:31)
--- NOTE | 2017-11-28 15:39 | ED ---
General Adult HPI - General Source: patient, RN notes reviewed, old records reviewed Mode of arrival: wheelchair Limitations: no limitations <Diego Ley - Last Filed: 11/28/17 17:02> <Jamal Navarro - Last Filed: 11/28/17 18:23> - General Chief complaint: Shortness of Breath Stated complaint: SOB Time Seen by Provider: 11/28/17 15:22 - History of Present Illness Initial comments: 72-year-old male presenting for evaluation of cough and dyspnea. Patient has multiple medical problems including congestive heart failure, COPD. He is a current smoker. He has had a recent admissions for COPD and pneumonia. He does have history of atrial fibrillation. Patient denies chest pain. He's had subjective fever and chills. He has had cough productive of white sputum. Denies abdominal pain. Denies nausea vomiting or diarrhea. Denies lower extremity pain or swelling. (Diego Ley) - Related Data Home Medications Medication Instructions Recorded Confirmed Albuterol Sulfate [Proair Hfa] 2 puff INHALATION RT-Q6H PRN 09/14/16 11/28/17 Rivaroxaban [Xarelto] 20 mg PO DAILY 03/28/17 11/28/17 Ipratropium-Albuterol Nebulize 3 ml INHALATION RT-QID 10/14/17 11/28/17 [Duoneb 0.5 mg-3 mg/3 ml Soln] Aspirin EC [Ecotrin Low Dose] 81 mg PO DAILY 10/24/17 11/28/17 Ipratropium Ramsay [Atrovent Hfa] 2 puff INHALATION RT-QID PRN 11/28/17 Tamsulosin [Flomax] 0.4 mg PO DAILY 11/28/17 11/28/17 Previous Rx's Medication Instructions Recorded Amiodarone [Cordarone] 400 mg PO DAILY #30 tab 10/21/17 Budesonide [Pulmicort] 1 mg INHALATION RT-BID #20 nebu 10/21/17 Formoterol Fumarate [Perforomist] 20 mcg INHALATION RT-BID #20 nebu 10/21/17 Pravastatin Sodium [Pravachol] 40 mg PO HS #30 tab 10/21/17 Furosemide [Lasix] 40 mg PO BID@0900,1600 tab 10/27/17 HYDROcodone/APAP 10-325MG [Hardwick 1 tab PO Q6H PRN #10 tab 10/27/17 10-325] Insulin Detemir [Levemir] 10 unit SQ HS syr 10/27/17 Magnesium Oxide [Mag-Ox] 400 mg PO TID tab 10/27/17 Metoprolol Tartrate [Lopressor] 100 mg PO BID #90 tab 10/27/17 Potassium Chloride ER [K-Dur 20] 20 meq PO DAILY tab.er.prt 10/27/17 Spironolactone [Aldactone] 25 mg PO DAILY tab 10/27/17 Thiamine [Vitamin B-1] 100 mg PO BID@1200,1700 tab 10/27/17 Lisinopril [Zestril] 2.5 mg PO BID #60 tab 11/19/17 Allergies Allergy/AdvReac Type Severity Reaction Status Date / Time cephalexin monohydrate Allergy Rash/Hives Verified 11/28/17 15:50 [From Keflex] Review of Systems ROS Other: All systems not noted in ROS Statement are negative. <Diego Ley - Last Filed: 11/28/17 17:02> ROS Other: All systems not noted in ROS Statement are negative. <Jamal Navarro - Last Filed: 11/28/17 18:23> ROS Statement: Those systems with pertinent positive or pertinent negative responses have been documented in the HPI. 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%, history cervical and lumbar spondylosis, carpal tunnel disease, paroxysmal atrial fibrillation, previous hospitalization for alcohol intoxication and altered mentation and previous history of fall with pulmonary contusion and traumatic right-sided fractures, history of delirium tremens, chronic atrial fibrillation, hypertension, hyperlipidemia, previous bouts of pneumonia, previous hospital physician for acute alcohol intoxication, kidney stones, cataracts, degenerative arthritis History of Any Multi-Drug Resistant Organisms: None Reported Past Surgical History: Back Surgery, Hernia Repair Additional Past Surgical History / Comment(s): right shoulder surgery, bilateral cataract surgery, umbilical hernia surgery, kidney stones removal, hammer toe surgery X3 with subsequent amputation of the second toe on right foot , pain injections through neurology, colonoscopy Past Anesthesia/Blood Transfusion Reactions: No Reported Reaction Past Psychological History: No Psychological Hx Reported Smoking Status: Current every day smoker Past Alcohol Use History: Daily Past Drug Use History: None Reported - Past Family History Father Family Medical History: Diabetes Mellitus Mother History Unknown: Yes Additional Family Medical History / Comment(s): 2001 <Diego Ley N - Last Filed: 11/28/17 17:02> General Exam Limitations: no limitations General appearance: alert, in no apparent distress, cachectic Head exam: Present: atraumatic, normocephalic Eye exam: Present: normal appearance, PERRL ENT exam: Present: normal exam, normal oropharynx Neck exam: Present: normal inspection. Absent: tenderness, meningismus Respiratory exam: Present: respiratory distress, wheezes, rhonchi, decreased breath sounds Cardiovascular Exam: Present: tachycardia, irregular rhythm GI/Abdominal exam: Present: soft. Absent: distended, tenderness, guarding Extremities exam: Present: normal inspection, normal capillary refill. Absent: pedal edema, calf tenderness Neurological exam: Present: alert, oriented X3, CN II-XII intact. Absent: motor sensory deficit Psychiatric exam: Present: normal affect, normal mood Skin exam: Present: warm, dry, intact. Absent: cyanosis, diaphoretic <Diego Ley N - Last Filed: 11/28/17 17:02> General appearance: alert, in no apparent distress, anxious Head exam: Present: atraumatic, normocephalic, normal inspection Eye exam: Present: normal appearance, PERRL, EOMI. Absent: scleral icterus, conjunctival injection, periorbital swelling ENT exam: Present: normal exam, mucous membranes moist Neck exam: Present: normal inspection. Absent: tenderness, meningismus, lymphadenopathy Respiratory exam: Present: normal lung sounds bilaterally, wheezes. Absent: respiratory distress, rales, rhonchi, stridor Cardiovascular Exam: Present: regular rate, normal rhythm, normal heart sounds. Absent: systolic murmur, diastolic murmur, rubs, gallop, clicks GI/Abdominal exam: Present: soft, normal bowel sounds. Absent: distended, tenderness, guarding, rebound, rigid Extremities exam: Present: normal inspection, full ROM, normal capillary refill. Absent: tenderness, pedal edema, joint swelling, calf tenderness Back exam: Present: normal inspection Neurological exam: Present: alert, oriented X3, CN II-XII intact Psychiatric exam: Present: normal affect, normal mood Skin exam: Present: warm, dry, intact, normal color. Absent: rash <Jamal Navarro - Last Filed: 11/28/17 18:23> Course <Diego Ley - Last Filed: 11/28/17 17:02> <Jamal Navarro - Last Filed: 11/28/17 18:23> Vital Signs 11/28/17 11/28/17 11/28/17 15:13 16:00 16:21 Temperature 99.2 F Pulse Rate 84 140 H 130 H Respiratory 20 Rate Blood Pressure 107/73 O2 Sat by Pulse 100 Oximetry 11/28/17 11/28/17 16:30 17:58 Temperature 97.8 F Pulse Rate 132 H 120 H Respiratory 20 20 Rate Blood Pressure 116/67 106/67 O2 Sat by Pulse 100 98 Oximetry - Reevaluation(s) Reevaluation #1: 11/28/17 17:02 Patient's care is signed out at shift change awaiting complete workup. ( Diego Ley) Reevaluation #2: 11/28/17 18:22 Patient does have improvement after prolonged breathing treatment and repeat breathing treatment (Jamal Navarro) EKG Findings - EKG Comments: EKG Findings:: EKG: Atrial fibrillation with RVR, left axis deviation, right bundle branch block, rate of 159, QRS duration 124, QTC 520, no ST segment elevation <Diego Ley - Last Filed: 11/28/17 17:02> Medical Decision Making - Lab Data Result diagrams: 11/28/17 15:35 11/28/17 15:35 <Diego Ley - Last Filed: 11/28/17 17:02> - Lab Data Result diagrams: 11/28/17 15:35 11/28/17 15:35 - Radiology Data Radiology results: report reviewed (S x-rays negative for acute disease), image reviewed <Jamal Navarro - Last Filed: 11/28/17 18:23> - Medical Decision Making 72 male the ER for evaluation shortness breath cough and congestion and increased COPD exacerbation. Patient be admitted for inpatient treatment ( Jamal Navarro) - Lab Data Lab Results 11/28/17 11/28/17 11/28/17 Range/Units 15:35 15:35 15:35 WBC 10.0 (3.8-10.6) k/uL RBC 3.81 L (4.30-5.90) m/uL Hgb 10.2 L (13.0-17.5) gm/dL Hct 33.5 L (39.0-53.0) % MCV 87.9 (80.0-100.0) fL MCH 26.7 (25.0-35.0) pg MCHC 30.3 L (31.0-37.0) g/dL RDW 18.0 H (11.5-15.5) % Plt Count 254 (150-450) k/uL Neutrophils % 82 % Lymphocytes % 10 % Monocytes % 6 % Eosinophils % 1 % Basophils % 0 % Neutrophils # 8.2 H (1.3-7.7) k/uL Lymphocytes # 1.0 (1.0-4.8) k/uL Monocytes # 0.6 (0-1.0) k/uL Eosinophils # 0.1 (0-0.7) k/uL Basophils # 0.0 (0-0.2) k/uL Hypochromasia Marked Anisocytosis Slight PT (9.0-12.0) sec INR (<1.2) APTT (22.0-30.0) sec Sodium 136 L (137-145) mmol/L Potassium 4.6 (3.5-5.1) mmol/L Chloride 102 (98-107) mmol/L Carbon Dioxide 27 (22-30) mmol/L Anion Gap 7 mmol/L BUN 13 (9-20) mg/dL Creatinine 0.80 (0.66-1.25) mg/dL Est GFR (CKD-EPI)AfAm >90 (>60 ml/min/1.73 sqM) Est GFR (CKD-EPI)NonAf >90 (>60 ml/min/1.73 sqM) Glucose 96 (74-99) mg/dL Calcium 8.2 L (8.4-10.2) mg/dL Magnesium 1.7 (1.6-2.3) mg/dL Total Bilirubin 0.8 (0.2-1.3) mg/dL AST 24 (17-59) U/L ALT 40 (21-72) U/L Alkaline Phosphatase 81 (38-126) U/L Total Creatine Kinase <20 L (55-170) U/L CK-MB (CK-2) 0.5 (0.0-2.4) ng/mL CK-MB (CK-2) Rel Index Troponin I <0.012 (0.000-0.034) ng/mL NT-Pro-B Natriuret Pep pg/mL Total Protein 5.4 L (6.3-8.2) g/dL Albumin 3.0 L (3.5-5.0) g/dL 11/28/17 11/28/17 Range/Units 15:35 15:35 WBC (3.8-10.6) k/uL RBC (4.30-5.90) m/uL Hgb (13.0-17.5) gm/dL Hct (39.0-53.0) % MCV (80.0-100.0) fL MCH (25.0-35.0) pg MCHC (31.0-37.0) g/dL RDW (11.5-15.5) % Plt Count (150-450) k/uL Neutrophils % % Lymphocytes % % Monocytes % % Eosinophils % % Basophils % % Neutrophils # (1.3-7.7) k/uL Lymphocytes # (1.0-4.8) k/uL Monocytes # (0-1.0) k/uL Eosinophils # (0-0.7) k/uL Basophils # (0-0.2) k/uL Hypochromasia Anisocytosis PT 10.9 (9.0-12.0) sec INR 1.1 (<1.2) APTT 21.7 L (22.0-30.0) sec Sodium (137-145) mmol/L Potassium (3.5-5.1) mmol/L Chloride (98-107) mmol/L Carbon Dioxide (22-30) mmol/L Anion Gap mmol/L BUN (9-20) mg/dL Creatinine (0.66-1.25) mg/dL Est GFR (CKD-EPI)AfAm (>60 ml/min/1.73 sqM) Est GFR (CKD-EPI)NonAf (>60 ml/min/1.73 sqM) Glucose (74-99) mg/dL Calcium (8.4-10.2) mg/dL Magnesium (1.6-2.3) mg/dL Total Bilirubin (0.2-1.3) mg/dL AST (17-59) U/L ALT (21-72) U/L Alkaline Phosphatase (38-126) U/L Total Creatine Kinase (55-170) U/L CK-MB (CK-2) (0.0-2.4) ng/mL CK-MB (CK-2) Rel Index Troponin I (0.000-0.034) ng/mL NT-Pro-B Natriuret Pep 1330 pg/mL Total Protein (6.3-8.2) g/dL Albumin (3.5-5.0) g/dL Disposition <Diego Ley - Last Filed: 11/28/17 17:02> Is patient prescribed a controlled substance at d/c from ED?: No <Jamal Navarro - Last Filed: 11/28/17 18:23> Clinical Impression: Acute exacerbation of chronic obstructive airways disease Disposition: ADMITTED IP TO THIS HOSP Condition: Fair
[2017-11-28 15:49] LABS: Anisocytosis Slight; Basophils % (A) 0 %; Eosinophils # (A) 0.1 k/uL (0-0.7); Eosinophils % (A) 1 %; HCT 33.5 % (39.0-53.0); HGB 10.2 gm/dL (13.0-17.5); Hypochromasia Marked; Lymphocytes % (A) 10 %; MCH 26.7 pg (25.0-35.0); MCHC 30.3 g/dL (31.0-37.0); MCV 87.9 fL (80.0-100.0); Mean Platelet Volume 7.4; Monocytes # (A) 0.6 k/uL (0-1.0); Monocytes % (A) 6 %; Neutrophils # (A) 8.2 k/uL (1.3-7.7); Neutrophils % (A) 82 %; Platelet Count 254 k/uL (150-450); RBC 3.81 m/uL (4.30-5.90)
[2017-11-28] MEDS: DILTIAZEM 50 MG in SODIUM CHLORIDE 0.9% 40 ML IV SCH (15:55)
[2017-11-28 15:58] LABS: ALT 40 U/L (21-72); AST 24 U/L (17-59); Alkaline Phosphatase 81 U/L (38-126); Anion Gap 7 mmol/L; Blood Urea Nitrogen 13 mg/dL (9-20); Calcium 8.2 mg/dL (8.4-10.2); Carbon Dioxide 27 mmol/L (22-30); Chloride 102 mmol/L (98-107); Glucose 96 mg/dL (74-99); Magnesium 1.7 mg/dL (1.6-2.3); Potassium 4.6 mmol/L (3.5-5.1); Sodium 136 mmol/L (137-145); Total Bilirubin 0.8 mg/dL (0.2-1.3); Total Protein 5.4 g/dL (6.3-8.2)
[2017-11-28 16:01] LABS: INR 1.1 (<1.2); Prothrombin Time 10.9 sec (9.0-12.0)
[2017-11-28 16:07] LABS: Partial Thromboplastin Time 21.7 sec (22.0-30.0)
[2017-11-28 16:10] LABS: Creatine Kinase <20 U/L (55-170)
[2017-11-28 16:24] LABS: Creatine Kinase MB 0.5 ng/mL (0.0-2.4); Troponin I <0.012 ng/mL (0.000-0.034)
[2017-11-28] MEDS ORDERED: IPRATROPIUM-ALBUTEROL 3 ML NEB INHALATION PRN ×2 (17:00→19:53)
[2017-11-28] MEDS ORDERED: NITROGLYCERIN SL TABS 0.4 MG TAB SUBLINGUAL PRN (17:00)
--- NOTE | 2017-11-28 17:27 | XR ---
EXAMINATION TYPE: XR chest 2V DATE OF EXAM: 11/28/2017 COMPARISON: 11/17/2017 HISTORY: Short of breath TECHNIQUE: Frontal and lateral views of the chest are obtained. FINDINGS: Heart is enlarged. There is right shoulder prosthesis. Lungs are clear of consolidation. T here is no pleural effusion. Bony thorax is intact. IMPRESSION: No active cardiopulmonary disease. There is clearing of minimal atelectasis at the left lung base compared to old exam.
[2017-11-28 18:49] VITALS: BMI 19.6
[2017-11-28] MEDS: IPRATROPIUM-ALBUTEROL 3 ML NEB INHALATION SCH (19:53)
[2017-11-28] MEDS ORDERED: NON-FORMULARY DRUG (Ipratropium Bromide [Atrovent Hfa] 2 PUFF) INHALATION PRN (20:35)
[2017-11-28] MEDS ORDERED: ALBUTEROL INHALER 60 PUFF/8 GM INHALER INHALATION PRN (20:35)
[2017-11-28] MEDS ORDERED: LORazepam 2 MG/ML INJ IV PRN ×3 (20:42)
[2017-11-28] MEDS: METOPROLOL TARTRATE 50 MG TAB PO SCH (21:08)
[2017-11-28] MEDS: LISINOPRIL 2.5 MG TAB PO SCH (21:08)
[2017-11-28] MEDS: MAGNESIUM OXIDE 400 MG TAB PO SCH (21:09)
[2017-11-28] MEDS: PRAVASTATIN SODIUM 40 MG TAB PO SCH (21:09)
[2017-11-28] MEDS: HYDROcodone/APAP 10-325MG 1 EACH TAB PO PRN (21:17)
[2017-11-28 21:21] LABS: Glucose,Whole Blood 207 mg/dL (75-99)
[2017-11-28] MEDS: INSULIN ASPART 100 UNIT/ML 1 ML 10 ML VIAL SQ SCH (21:25)
[2017-11-28] MEDS: INSULIN DETEMIR 100 UNIT/ML 10 ML VIAL SQ SCH (21:26)
[2017-11-28 22:04] LABS: Creatine Kinase <20 U/L (55-170)
[2017-11-28 22:17] LABS: Creatine Kinase MB 0.5 ng/mL (0.0-2.4); Troponin I <0.012 ng/mL (0.000-0.034)
[2017-11-29] MEDS: DILTIAZEM 50 MG in SODIUM CHLORIDE 0.9% 40 ML IV SCH (00:20)
[2017-11-29] MEDS: methylPREDNISolone SOD SUCCI 125 MG/2 ML VIAL IV SCH ×3 (00:21→11:43)
[2017-11-29 03:24] LABS: Cholesterol 89 mg/dL (<200); HDL Cholesterol 30 mg/dL (40-60); LDL Cholesterol,Calculated 47 mg/dL (0-99); Triglycerides 62 mg/dL (<150)
[2017-11-29 03:27] LABS: Creatine Kinase <20 U/L (55-170)
[2017-11-29 03:40] LABS: Creatine Kinase MB 0.6 ng/mL (0.0-2.4); Troponin I <0.012 ng/mL (0.000-0.034)
[2017-11-29 04:17] LABS: Hemoglobin A1C 5.3 % (4.0-6.0)
[2017-11-29 06:19] LABS: Glucose,Whole Blood 149 mg/dL (75-99)
[2017-11-29] MEDS: INSULIN ASPART 100 UNIT/ML 1 ML 10 ML VIAL SQ SCH ×4 (06:28→21:50)
[2017-11-29] MEDS: AMIODARONE 200 MG TAB PO SCH (07:45)
[2017-11-29] MEDS: SPIRONOLACTONE 25 MG TAB PO SCH (07:48)
[2017-11-29] MEDS: FUROSEMIDE 40 MG TAB PO SCH ×2 (07:48→16:44)
[2017-11-29] MEDS: POTASSIUM CHLORIDE ER 20 MEQ TAB.ER PO SCH (07:48)
[2017-11-29] MEDS: THIAMINE 100 MG TAB PO SCH ×2 (07:48→16:44)
[2017-11-29] MEDS: METOPROLOL TARTRATE 50 MG TAB PO SCH ×2 (07:48→21:51)
[2017-11-29] MEDS: LISINOPRIL 2.5 MG TAB PO SCH ×2 (07:48→21:51)
[2017-11-29] MEDS: MAGNESIUM OXIDE 400 MG TAB PO SCH ×3 (07:48→21:51)
[2017-11-29] MEDS: RIVAROXABAN 20 MG TAB PO SCH (07:48)
[2017-11-29] MEDS: TAMSULOSIN 0.4 MG CAP.ER.24H PO SCH (07:48)
[2017-11-29] MEDS ORDERED: IPRATROPIUM-ALBUTEROL 3 ML NEB INHALATION SCH (08:00)
[2017-11-29] MEDS: FORMOTEROL FUMARATE 20 MCG/2 ML NEBU INHALATION SCH ×2 (08:44→20:15)
[2017-11-29] MEDS: IPRATROPIUM-ALBUTEROL 3 ML NEB INHALATION SCH ×4 (08:44→20:15)
[2017-11-29] MEDS: BUDESONIDE 1 MG/2 ML NEBU INHALATION SCH ×2 (08:44→20:15)
--- NOTE | 2017-11-29 08:47 | P.CRDCN ---
History of Present Illness Consult date: 11/29/17 Requesting physician: Martin Norton Consult reason: atrial fibrillation Chief complaint: Shortness of breath History of present illness: This is a 72-year-old gentleman with known history of chronic alcoholism, paroxysmal atrial fibrillation, COPD, hyperlipidemia, caffeine dependence, hypertension, diabetes, who was recently in the hospital the end of October with COPD exacerbation. He presents to the hospital on this occasion again with severe shortness of breath. According to the patient, he could not even walk a short distance without becoming extremely short of breath. His EKG on arrival here showed atrial fibrillation with a rapid ventricular response, right bundle branch block pattern. Chest x-ray did not reveal any active cardiopulmonary disease. There is clearing of minimal atelectasis as compared with prior x-ray. Blood pressure on arrival here 107/73, heart rate in the 120 range, temperature 99.2, 100% on 3 L of oxygen. The pressure this morning 105/ 60 with a heart rate in the 80s, 100% on 3 L of oxygen. Afebrile. White blood cell count is normal, hemoglobin 10.2, platelet count 254. Sodium 136, potassium 4.6, chloride 102, BUN 13, creatinine 0.8. Magnesium 1.7. Troponins are negative 3. BNP [id number]. His BNP level on this most recent admission was 3150. Most recent echocardiogram with Doppler study was performed in September of this year which revealed severe global hypokinesia with an ejection fraction of less than 20%. At the time of my examination this morning, patient states his breathing is significantly improved from admission. Still appears quite short of breath. Very wheezy with decreased air exchange throughout. Continues to be in atrial fibrillation this morning, heart rate in the 80s. 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%, history cervical and lumbar spondylosis, carpal tunnel disease, paroxysmal atrial fibrillation, previous hospitalization for alcohol intoxication and altered mentation and previous history of fall with pulmonary contusion and traumatic right-sided fractures, history of delirium tremens, chronic atrial fibrillation, hypertension, hyperlipidemia, previous bouts of pneumonia, previous hospital physician for acute alcohol intoxication, kidney stones, cataracts, degenerative arthritis History of Any Multi-Drug Resistant Organisms: None Reported Past Surgical History: Back Surgery, Hernia Repair Additional Past Surgical History / Comment(s): right shoulder surgery, bilateral cataract surgery, umbilical hernia surgery, kidney stones removal, hammer toe surgery X3 with subsequent amputation of the second toe on right foot , pain injections through neurology, colonoscopy Past Anesthesia/Blood Transfusion Reactions: No Reported Reaction Past Psychological History: No Psychological Hx Reported Additional Psychological History / Comment(s): Lives with friend, Bekah Arriaga. she lives in the upstairs of his home. Smoking Status: Current every day smoker Past Alcohol Use History: Daily Additional Past Alcohol Use History / Comment(s): Smokes 1 PPD, USUALLY DRINKS "at least" A FIFTH OF VODKA BETWEEN 9PM-MIDNIGHT DAILY Past Drug Use History: None Reported - Past Family History Father Family Medical History: Diabetes Mellitus Mother History Unknown: Yes Additional Family Medical History / Comment(s): 2001 Medications and Allergies Home Medications Medication Instructions Recorded Confirmed Type Albuterol Sulfate [Proair Hfa] 2 puff INHALATION RT-Q6H PRN 09/14/16 11/28/17 History Rivaroxaban [Xarelto] 20 mg PO DAILY 03/28/17 11/28/17 History Ipratropium-Albuterol Nebulize 3 ml INHALATION RT-QID 10/14/17 11/28/17 History [Duoneb 0.5 mg-3 mg/3 ml Soln] Amiodarone [Cordarone] 400 mg PO DAILY #30 tab 10/21/17 11/28/17 Rx Budesonide [Pulmicort] 1 mg INHALATION RT-BID #20 nebu 10/21/17 11/28/17 Rx Formoterol Fumarate [Perforomist] 20 mcg INHALATION RT-BID #20 nebu 10/21/1707/13 Rx Pravastatin Sodium [Pravachol] 40 mg PO HS #30 tab 10/21/17 11/28/17 Rx Aspirin EC [Ecotrin Low Dose] 81 mg PO DAILY 10/24/17 11/28/17 History Furosemide [Lasix] 40 mg PO BID@0900,1600 tab 10/27/17 11/28/17 Rx HYDROcodone/APAP 10-325MG [[place] 1 tab PO Q6H PRN #10 tab 10/27/17 11/28/17 Rx 10-325] Insulin Detemir [Levemir] 10 unit SQ HS syr 10/27/17 11/28/17 Rx Magnesium Oxide [Mag-Ox] 400 mg PO TID tab 10/27/17 11/28/17 Rx Metoprolol Tartrate [Lopressor] 100 mg PO BID #90 tab 10/27/17 11/28/17 Rx Potassium Chloride ER [K-Dur 20] 20 meq PO DAILY tab.er.prt 10/27/17 11/28/17 Rx Spironolactone [Aldactone] 25 mg PO DAILY tab 10/27/17 11/28/17 Rx Thiamine [Vitamin B-1] 100 mg PO BID@1200,1700 tab 10/27/17 11/28/17 Rx Lisinopril [Zestril] 2.5 mg PO BID #60 tab 11/19/17 11/28/17 Rx Ipratropium [place] [Atrovent Hfa] 2 puff INHALATION RT-QID PRN 11/28/17 History Tamsulosin [Flomax] 0.4 mg PO DAILY 11/28/17 11/28/17 History Allergies Allergy/AdvReac Type Severity Reaction Status Date / Time cephalexin monohydrate Allergy Rash/Hives Verified 11/28/17 15:50 [From Keflex] Physical Exam Vitals: Vital Signs Temp Pulse Pulse Resp BP BP Pulse Ox 11/29/17 07:51 97 F L 88 20 105/63 100 11/29/17 03:30 96.9 F L 85 18 101/65 100 11/29/17 00:40 96.9 F L 90 18 96/58 100 11/28/17 20:06 128 H 11/28/17 19:58 124 H 11/28/17 19:40 99.1 F 130 H 18 105/66 98 11/28/17 18:43 121 H 18 11/28/17 18:40 97.5 F L 121 H 18 110/66 98 11/28/17 17:58 97.8 F 120 H 20 106/67 98 11/28/17 16:30 132 H 20 116/67 100 11/28/17 16:21 130 H 11/28/17 16:00 140 H 11/28/17 15:13 99.2 F 84 20 107/73 100 Intake and Output 11/28/17 11/29/17 11/29/17 22:59 06:59 14:59 Intake Total 42.083 120 Output Total 200 250 Balance -200 -207.917 120 Intake: Intake, IV Titration 42.083 Amount Diltiazem 50 mg In Sodium 42.083 Chloride 0.9% 40 ml @ 5 MG/HR 5 mls/hr IV .Q10H [facility] Rx#:[id number] Oral 120 Output: Urine 200 250 Other: # Bowel Movements 1 Weight 65.771 kg 65.8 kg PHYSICAL EXAMINATION: GENERAL: 72-year-old gentleman mildly short of breath time of my examination HEENT: Head is atraumatic, normocephalic. Pupils equal, round. Sclera anicteric. Conjunctiva are clear. Mucous membranes of the mouth are moist. Neck is supple. There is no elevated jugular venous pressure.] bruit is heard. HEART EXAMINATION: Heart S1 and S2 irregularly irregular a systolic murmur is heard. CHEST EXAMINATION: Lungs revealed decreased air exchange throughout with scattered wheezing throughout. ABDOMEN: Soft, nontender. Bowel sounds are heard. No organomegaly noted. EXTREMITIES: 2+ peripheral pulses with no evidence of peripheral edema and no calf tenderness noted. NEUROLOGIC patient is awake, alert and oriented ?-3. . Results 11/28/17 15:35 11/28/17 15:35 Cardiac Enzymes 11/28/17 11/28/17 11/28/17 Range/Units 15:35 15:35 21:12 AST 24 (17-59) U/L CK-MB (CK-2) 0.5 0.5 (0.0-2.4) ng/mL Troponin I <0.012 <0.012 (0.000-0.034) ng/mL 11/29/17 Range/Units 02:54 AST (17-59) U/L CK-MB (CK-2) 0.6 (0.0-2.4) ng/mL Troponin I <0.012 (0.000-0.034) ng/mL Coagulation 11/28/17 Range/Units 15:35 PT 10.9 (9.0-12.0) sec APTT 21.7 L (22.0-30.0) sec Lipids 11/29/17 Range/Units 02:54 Triglycerides 62 (<150) mg/dL Cholesterol 89 (<200) mg/dL HDL Cholesterol 30 L (40-60) mg/dL CBC 11/28/17 Range/Units 15:35 WBC 10.0 (3.8-10.6) k/uL RBC 3.81 L (4.30-5.90) m/uL Hgb 10.2 L (13.0-17.5) gm/dL Hct 33.5 L (39.0-53.0) % Plt Count 254 (150-450) k/uL Comprehensive Metabolic Panel 11/28/17 Range/Units 15:35 Sodium 136 L (137-145) mmol/L Potassium 4.6 (3.5-5.1) mmol/L Chloride 102 (98-107) mmol/L Carbon Dioxide 27 (22-30) mmol/L BUN 13 (9-20) mg/dL Creatinine 0.80 (0.66-1.25) mg/dL Glucose 96 (74-99) mg/dL Calcium 8.2 L (8.4-10.2) mg/dL AST 24 (17-59) U/L ALT 40 (21-72) U/L Alkaline Phosphatase 81 (38-126) U/L Total Protein 5.4 L (6.3-8.2) g/dL Albumin 3.0 L (3.5-5.0) g/dL Current Medications Generic Name Dose Route Start Last Admin Trade Name Freq PRN Reason Stop Dose Admin Hydrocodone Bitart/Acetaminophen 1 each 11/28/17 20:35 11/28/17 21:17 Ruth 10 PO 1 each Q6H PRN Administration MODERATE Pain Albuterol/Ipratropium 3 ml 11/28/17 20:00 11/28/17 19:53 Duoneb 0.5 Mg-3 Mg/3 Ml Soln INHALATION 3 ml RT-QID LUKASZ Administration Albuterol/Ipratropium 3 ml 11/28/17 19:53 Duoneb 0.5 Mg-3 Mg/3 Ml Soln INHALATION RT-Q4H PRN Shortness Of Breath Or Wheezing Amiodarone HCl 400 mg 11/29/17 09:00 11/29/17 07:45 Cordarone PO Not Given DAILY LUKASZ Aspirin 325 mg 11/29/17 09:00 11/29/17 07:48 Aspirin PO 325 mg DAILY L[facility]ASZ Administration Budesonide 1 mg 11/29/17 08:00 Pulmicort INHALATION RT-BID [facility] Formoterol Fumarate 20 mcg 11/29/17 08:00 Perforomist INHALATION RT-BID [facility] Furosemide 40 mg 11/29/17 09:00 11/29/17 07:48 Lasix PO 40 mg BID@0900,1600 L[facility]ASZ Administration Diltiazem HCl 50 mg/ Sodium 50 mls @ 5 mls/hr 11/28/17 15:45 11/29/17 00:20 Chloride IV 5 mg/hr .Q10H [facility] 5 mls/hr Administration 5 MG/HR Insulin Aspart 0 unit 11/28/17 21:00 11/29/17 06:28 Novolog SQ 2 unit ACHS [facility] Administration Protocol Insulin Detemir 10 unit 11/28/17 21:00 11/28/17 21:26 Levemir SQ 10 unit HS [facility] Administration Lisinopril 2.5 mg 11/28/17 21:00 11/29/17 07:48 Zestril PO 2.5 mg BID [facility] Administration Lorazepam 1 mg 11/28/17 20:42 Ativan IV Q2HR PRN CIWA 8 or 9 Lorazepam 1 mg 11/28/17 20:42 Ativan IV Q1HR PRN CIWA 10 to 15 Lorazepam 2 mg 11/28/17 20:42 Ativan IV 11/30/17 20:42 Q10M PRN CIWA 16 or higher Magnesium Oxide 400 mg 11/28/17 22:00 11/29/17 07:48 Mag-Ox PO 400 mg TID [facility] Administration Methylprednisolone Sodium Succinate 60 mg 11/29/17 00:00 11/29/17 06:35 Solu-Medrol IV 60 mg Q6HR [facility] Administration Metoprolol Tartrate 100 mg 11/28/17 21:00 11/29/17 07:48 Lopressor PO 100 mg BID [facility] Administration Nitroglycerin 0.4 mg 11/28/17 17:00 Nitrostat SUBLINGUAL Q5M PRN Chest Pain Potassium Chloride 20 meq 11/29/17 09:00 11/29/17 07:48 K-Dur 20 PO 20 meq DAILY [facility] Administration Pravastatin Sodium 40 mg 11/28/17 21:00 11/28/17 21:09 Pravachol PO 40 mg HS [facility] Administration Rivaroxaban 20 mg 11/29/17 09:00 11/29/17 07:48 Xarelto PO 20 mg DAILY [facility] Administration Spironolactone 25 mg 11/29/17 09:00 11/29/17 07:48 Aldactone PO 25 mg DAILY [facility] Administration Tamsulosin HCl 0.4 mg 11/29/17 09:00 11/29/17 07:48 Flomax PO 0.4 mg DAILY [facility] Administration Thiamine HCl 100 mg 11/29/17 12:00 11/29/17 07:48 Vitamin B-1 PO 100 mg BID@1200,1700 [facility] Administration Intake and Output 11/28/17 11/29/17 11/29/17 22:59 06:59 14:59 Intake Total 42.083 120 Output Total 200 250 Balance -200 -207.917 120 Intake: Intake, IV Titration 42.083 Amount Diltiazem 50 mg In Sodium 42.083 Chloride 0.9% 40 ml @ 5 MG/HR 5 mls/hr IV .Q10H [facility] Rx#:[id number] Oral 120 Output: Urine 200 250 Other: # Bowel Movements 1 Weight 65.771 kg 65.8 kg 11/28/17 15:35 11/28/17 15:35 EKG Interpretations (text) EKG shows atrial fibrillation with a rapid ventricular response. Assessment and Plan Plan: Assessment and plan #1 symptoms of severe shortness of breath, likely secondary to exacerbation of COPD #2 atrial fibrillation with rapid ventricular response, on anticoagulation in the form of Xarelto #3 nonischemic cardiomyopathy with documented ejection fraction of 20% by echo done in September #3 chronic EtOH use #4 nicotine dependence #5 COPD #6 hypertension #7 hyperlipidemia #8 diabetes Plan Patient continues to be in atrial fibrillation this morning, his heart rate is in the 80s. He is also on amiodarone 400 mg daily which we will continue. We will discontinue the IV Cardizem drip, continue lisinopril, metoprolol 100 mg twice a day, Xarelto 20 mg daily, Aldactone 25 mg daily, and pravastatin. Further recommendations to follow. DNP note has been reviewed, I agree with a documented findings and plan of care. Patient was seen and examined.
[2017-11-29] MEDS ORDERED: ASPIRIN 325 MG TAB PO SCH (09:00)
[2017-11-29] MEDS ORDERED: NON-FORMULARY DRUG (Aspirin Ec 81 MG) PO SCH (09:00)
[2017-11-29] MEDS ORDERED: ENOXAPARIN 40 MG/0.4 ML SYRINGE SQ SCH (09:00)
--- NOTE | 2017-11-29 10:52 | P.CNPUL ---
History of Present Illness Consult date: 11/29/17 Requesting physician: Martin Norton Reason for consult: dyspnea Chief complaint: Chest pain, shortness of breath History of present illness: This is a very pleasant 72-year-old white male patient of Dr. Georges, was brought to the hospital yesterday for evaluation of increased shortness of breath, coughing, and palpitations. Patient has a known history of severe oxygen-dependent COPD, chronic alcohol abuse, alcoholic cardiomyopathy, chronic atrial fibrillation, congestive heart failure, hypertension, hyperlipidemia, CVA involving the temporal lobe, chronic anemia, cervical and lumbar stenosis, previous episodes of pneumonia, and chronic and ongoing nicotine abuse. He used to see Dr. Virk in the office for his history of COPD, however has not been seen in over a year's time other than in consultation when in the hospital. He was recently hospitalized for acute exacerbation of COPD, A. fib with RVR, and discharged home on 11/19/2017. He is on Xarelto for chronic anticoagulation, amiodarone, nebulized Pulmicort, Perforomist, DuoNeb, oral diuretics in the form of Lasix 40 mg twice a day, Aldactone. The patient is seen today in consultation on the selective care unit. He is currently awake and alert in no acute distress. He states he is already breathing better today as compared to yesterday. Unfortunately the patient does continue to smoke spiked previous recommendations in regards to complete smoking cessation. He has not followed up in our office in quite some time. He states he has transportation issues. He has had frequent admissions to the hospital for A. fib with RVR and COPD exacerbations. This admission his chest x-ray does show some evidence of congestive heart failure. His ejection fraction is 20%. He was in A. fib with RVR again as well heart rate in the 150s. he is currently maintaining good O2 saturations in the high 90s on 3 L/m per nasal cannula. He is afebrile. Heart rate better controlled. White count 10.0. Hemoglobin 10.2. Troponins negative 3. ProBNP 1330. He has been initiated on DuoNeb inhalations 4 times a day and when necessary, Pulmicort and Perforomist inhalations twice a day, IV Solu-Medrol. He is on antiarrhythmics and anticoagulation. Review of Systems All systems: negative Constitutional: Denies chills, Denies fever Eyes: denies blurred vision, denies pain Ears, nose, mouth and throat: Denies headache, Denies sore throat Cardiovascular: Reports dyspnea on exertion, Reports irregular heart beat, Denies chest pain, Denies shortness of breath Respiratory: Reports cough with sputum, Reports dyspnea, Reports home oxygen, Reports respiratory infections, Reports wheezing, Denies cough Gastrointestinal: Denies abdominal pain, Denies diarrhea, Denies nausea, Denies vomiting Musculoskeletal: Denies myalgias Integumentary: Denies pruritus, Denies rash Neurological: Denies numbness, Denies weakness Psychiatric: Denies anxiety, Denies depression Endocrine: Denies fatigue, Denies weight change 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%, history cervical and lumbar spondylosis, carpal tunnel disease, paroxysmal atrial fibrillation, previous hospitalization for alcohol intoxication and altered mentation and previous history of fall with pulmonary contusion and traumatic right-sided fractures, history of delirium tremens, chronic atrial fibrillation, hypertension, hyperlipidemia, previous bouts of pneumonia, previous hospital physician for acute alcohol intoxication, kidney stones, cataracts, degenerative arthritis History of Any Multi-Drug Resistant Organisms: None Reported Past Surgical History: Back Surgery, Hernia Repair Additional Past Surgical History / Comment(s): right shoulder surgery, bilateral cataract surgery, umbilical hernia surgery, kidney stones removal, hammer toe surgery X3 with subsequent amputation of the second toe on right foot , pain injections through neurology, colonoscopy Past Anesthesia/Blood Transfusion Reactions: No Reported Reaction Past Psychological History: No Psychological Hx Reported Additional Psychological History / Comment(s): Lives with friend, Bekah Arriaga. she lives in the upstairs of his home. Smoking Status: Current every day smoker Past Alcohol Use History: Daily Additional Past Alcohol Use History / Comment(s): Smokes 1 PPD, USUALLY DRINKS "at least" A FIFTH OF VODKA BETWEEN 9PM-MIDNIGHT DAILY Past Drug Use History: None Reported - Past Family History Father Family Medical History: Diabetes Mellitus Mother History Unknown: Yes Additional Family Medical History / Comment(s): 2001 Medications and Allergies Home Medications Medication Instructions Recorded Confirmed Type Albuterol Sulfate [Proair Hfa] 2 puff INHALATION RT-Q6H PRN 09/14/16 11/28/17 History Rivaroxaban [Xarelto] 20 mg PO DAILY 03/28/17 11/28/17 History Ipratropium-Albuterol Nebulize 3 ml INHALATION RT-QID 10/14/17 11/28/17 History [Duoneb 0.5 mg-3 mg/3 ml Soln] Amiodarone [Cordarone] 400 mg PO DAILY #30 tab 10/21/17 11/28/17 Rx Budesonide [Pulmicort] 1 mg INHALATION RT-BID #20 nebu 10/21/17 11/28/17 Rx Formoterol Fumarate [Perforomist] 20 mcg INHALATION RT-BID #20 nebu 10/21/1707/13 Rx Pravastatin Sodium [Pravachol] 40 mg PO HS #30 tab 10/21/17 11/28/17 Rx Aspirin EC [Ecotrin Low Dose] 81 mg PO DAILY 10/24/17 11/28/17 History Furosemide [Lasix] 40 mg PO BID@0900,1600 tab 10/27/17 11/28/17 Rx HYDROcodone/APAP 10-325MG [[place] 1 tab PO Q6H PRN #10 tab 10/27/17 11/28/17 Rx 10-325] Insulin Detemir [Levemir] 10 unit SQ HS syr 10/27/17 11/28/17 Rx Magnesium Oxide [Mag-Ox] 400 mg PO TID tab 10/27/17 11/28/17 Rx Metoprolol Tartrate [Lopressor] 100 mg PO BID #90 tab 10/27/17 11/28/17 Rx Potassium Chloride ER [K-Dur 20] 20 meq PO DAILY tab.er.prt 10/27/17 11/28/17 Rx Spironolactone [Aldactone] 25 mg PO DAILY tab 10/27/17 11/28/17 Rx Thiamine [Vitamin B-1] 100 mg PO BID@1200,1700 tab 10/27/17 11/28/17 Rx Lisinopril [Zestril] 2.5 mg PO BID #60 tab 11/19/17 11/28/17 Rx Ipratropium [place] [Atrovent Hfa] 2 puff INHALATION RT-QID PRN 11/28/17 History Tamsulosin [Flomax] 0.4 mg PO DAILY 11/28/17 11/28/17 History Allergies Allergy/AdvReac Type Severity Reaction Status Date / Time cephalexin monohydrate Allergy Rash/Hives Verified 11/28/17 15:50 [From Keflex] Physical Exam Vitals: Vital Signs Temp Pulse Pulse Resp BP BP Pulse Ox 11/29/17 09:13 128 H 11/29/17 08:57 118 H 11/29/17 08:56 118 H 11/29/17 08:47 118 H 99 11/29/17 08:00 88 20 11/29/17 07:51 97 F L 88 20 105/63 100 11/29/17 03:30 96.9 F L 85 18 101/65 100 11/29/17 00:40 96.9 F L 90 18 96/58 100 11/28/17 20:06 128 H 11/28/17 19:58 124 H 11/28/17 19:40 99.1 F 130 H 18 105/66 98 11/28/17 18:43 121 H 18 11/28/17 18:40 97.5 F L 121 H 18 110/66 98 11/28/17 17:58 97.8 F 120 H 20 106/67 98 11/28/17 16:30 132 H 20 116/67 100 11/28/17 16:21 130 H 11/28/17 16:00 140 H 11/28/17 15:13 99.2 F 84 20 107/73 100 Intake and Output 11/28/17 11/29/17 11/29/17 22:59 06:59 14:59 Intake Total 42.083 120 Output Total 200 250 Balance -200 -207.917 120 Intake: Intake, IV Titration 42.083 Amount Diltiazem 50 mg In Sodium 42.083 Chloride 0.9% 40 ml @ 5 MG/HR 5 mls/hr IV .Q10H [facility] Rx#:[id number] Oral 120 Output: Urine 200 250 Other: # Bowel Movements 1 Weight 65.771 kg 65.8 kg GENERAL EXAM: Alert, 72-year-old white male comfortable in no apparent distress. HEAD: Normocephalic/atraumatic. EYES: Normal reaction of pupils, equal size. Conjunctiva pink, sclera white. NOSE: Clear with pink turbinates. THROAT: No erythema or exudates. NECK: No masses, no JVD, no thyroid enlargement, no adenopathy. CHEST: No chest wall deformity. Symmetrical expansion. LUNGS: Scattered diffuse rhonchi, and wheezes bilaterally, congestive cough with production of white sputum CVS: Regular rate and rhythm, normal S1 and S2, no gallops, no murmurs, no rubs ABDOMEN: Soft, nontender. No hepatosplenomegaly, normal bowel sounds, no guarding or rigidity. EXTREMITIES: No clubbing, no edema, no cyanosis, 2+ pulses and upper and lower extremities. MUSCULOSKELETAL: Muscle strength and tone normal. SPINE: No scoliosis or deformity SKIN: No rashes CENTRAL NERVOUS SYSTEM: Alert and oriented -3. No focal deficits, tone is normal in all 4 extremities. PSYCHIATRIC: Alert and oriented -3. Appropriate affect. Intact judgment and insight. Results - Laboratory Findings CBC and BMP: 11/28/17 15:35 11/28/17 15:35 PT/INR, D-dimer PT 10.9 sec (9.0-12.0) 11/28/17 15:35 INR 1.1 (<1.2) 11/28/17 15:35 Abnormal lab findings: Abnormal Labs 11/28/17 11/28/17 11/28/17 15:35 15:35 15:35 RBC 3.81 L Hgb 10.2 L Hct 33.5 L MCHC 30.3 L RDW 18.0 H Neutrophils # 8.2 H APTT Sodium 136 L POC Glucose (mg/dL) Calcium 8.2 L Total Creatine Kinase <20 L Total Protein 5.4 L Albumin 3.0 L HDL Cholesterol 11/28/17 11/28/17 11/28/17 15:35 21:12 21:20 RBC Hgb Hct MCHC RDW Neutrophils # APTT 21.7 L Sodium POC Glucose (mg/dL) 207 H Calcium Total Creatine Kinase <20 L Total Protein Albumin HDL Cholesterol 11/29/17 11/29/17 11/29/17 02:54 02:54 06:17 RBC Hgb Hct MCHC RDW Neutrophils # APTT Sodium POC Glucose (mg/dL) 149 H Calcium Total Creatine Kinase <20 L Total Protein Albumin HDL Cholesterol 30 L - Diagnostic Findings Chest x-ray: image reviewed Assessment and Plan Assessment: Assessment: #1. Acute exacerbation of chronic obstructive pulmonary disease #2. Atrial fibrillation with rapid ventricular response, currently on amiodarone #3. Acute on chronic hypoxic respiratory failure and worsening dyspnea secondary to the above #4. Advanced oxygen-dependent COPD, patient wears home O2 at 3 L/m #5. Recent hospitalization for COPD and A. fib with RVR, discharge home on #6. Chronic atrial fibrillation, on oral anticoagulation in the form of Xarelto. #7. Chronic and ongoing EtOH abuse #8. Chronic and ongoing nicotine abuse #9. Chronic congestive heart failure with systolic dysfunction #10. Hypertension, hyperlipidemia #11. History of CVA involving the temporal lobe #12. Chronic anemia #13. Cervical lumbar stenosis Plan: The patient was seen and evaluated by Dr. Perez. Chest x-ray and labs were reviewed. We'll continue with the current treatment plan. We will increase his activity as tolerated. The patient is again educated regarding the importance of complete smoking cessation along with medication and provider follow-ups in the outpatient setting. we will continue to follow and make further recommendations based on his clinical status. I, the cosigning physician, performed a history & physical examination of the patient. Lungs sounds few scattered rhonchi, faint crackles in the posterior bases. Diminished. Maintaining good O2 saturations in the 90s on 3l liters per minute per nasal cannula. I discussed the assessment and plan of care with my nurse practitioner, Janie Blair. I attest to the above consultation as dictated by her. Time with Patient: Greater than 30
[2017-11-29 11:44] LABS: Glucose,Whole Blood 191 mg/dL (75-99)
[2017-11-29 16:47] LABS: Glucose,Whole Blood 176 mg/dL (75-99)
--- NOTE | 2017-11-29 16:54 | HP ---
HISTORY AND PHYSICAL DATE OF ADMISSION: 11/28/2017 DATE OF SERVICE: 11/29/2017 PRESENTING COMPLAINT: Short of breath. HISTORY OF PRESENTING COMPLAINT: This is a 72-year-old patient of Dr. Georges whose chronic stable medical conditions include congestive heart failure, hyperlipidemia, hypertension, chronic smoker, alcohol use. Patient presents with worsening shortness of breath, cough sputum, tired, rundown, heart racing. Patient in the ER was found to be in atrial fibrillation with rapid ventricular rate. He was started on a Cardizem drip. Like stated, the patient continues to drink alcohol and smokes cigarettes. Denies any fever or chills. REVIEW OF SYSTEMS: CONSTITUTIONAL: Tired. HEENT: Decreased hearing. RESPIRATORY: As above. CARDIOVASCULAR: As above. GASTROINTESTINAL: None. GENITOURINARY: None. MUSCULOSKELETAL: Chronic low back pain. DERMATOLOGICAL: None. HEMATOLOGICAL: None. LYMPHATICS: None. PSYCHIATRY: Anxious. NEUROLOGICAL: None. PAST MEDICAL HISTORY: 1. Atrial fibrillation. 2. COPD. 3. 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 4. Cervical and lumbar spondylosis. 5. Carpal tunnel. 6. Hypertension. 7. Hyperlipidemia. 8. Kidney stones. PAST SURGICAL HISTORY: 1. Back surgery. 2. Hernia surgery. 3. Right shoulder surgery. 4. Bilateral cataract surgery. 5. Umbilical hernia surgery. 6. Kidney stones removed. 7. Hammertoe surgery x3. 8. Amputation of second toe on the right. 9. Colonoscopy. SOCIAL HISTORY: The patient lives with a friend, Bekah Arriaga, who lives upstairs. The house belongs to the patient. The patient continues to smoke about a pack a day and drinks about a pint of vodka a day. FAMILY HISTORY: Diabetes. HOME MEDICATIONS: 1. Thiamine 100 mg b.i.d. 2. Flomax 0.4 mg a day. 3. Aldactone 25 mg a day. 4. Xarelto 20 mg a day. 5. Pravachol 40 mg at bedtime. 6. Potassium 20 mEq a day. 7. Lopressor 100 mg b.i.d. 8. Magnesium 400 mg t.i.d. 9. Zestril 2.5 p.o. b.i.d. 10.DuoNeb q.i.d. 11.Atrovent HFA. 12.Levemir 10 units subcutaneously at bedtime. 13.[place] 10 one tablet q.4 p.r.n. 14.Lasix 40 mg b.i.d. 15.Perforomist 20 mcg b.i.d. 16.Pulmicort 1 mg b.i.d. 17.Aspirin 81 mg daily. 18.Amiodarone 400 mg p.o. daily. 19.ProAir 2 puffs q.6 p.r.n. ALLERGY: KEFLEX. PHYSICAL EXAMINATION: Temperature 96.9, pulse 128, respiration 22, blood pressure 96/58, pulse ox 100% on 3 L. GENERAL APPEARANCE: Average build. Sitting up. Somewhat disheveled. EYES: Pupils equal. Conjunctivae pale. HEENT: External appearance of nose and ears normal. Oral cavity dry. Decreased hearing. NECK: JVD unable to assess. Mass not palpable. RESPIRATORY: Effort increased. LUNGS: Diminished breath sounds with some crackles. CARDIOVASCULAR: Heart sounds irregular. No edema. ABDOMEN: Soft, nontender. Liver and spleen not palpable. PSYCHIATRY: Alert and oriented x3. Mood and affect slightly anxious-appearing. NEUROLOGICAL: Pupils equal. Cranial nerves grossly intact. Power and sensation grossly intact. INVESTIGATIONS: White count 10, hemoglobin 10.2, potassium 4.6. BUN and creatinine are normal. ProBNP 1330. EKG film interpreted by al shows atrial fibrillation with a rapid ventricular rate. Chest x-ray film interpreted by al shows some cardiomegaly, prominent pulmonary artery. No obvious infiltrate. ASSESSMENT: 1. Persistent atrial fibrillation with rapid ventricular rate, present on admission. Patient is chronically on Xarelto. 2. Acute chronic obstructive pulmonary disease exacerbation in a long-standing smoker. 3. Macrocytic anemia from chronic alcoholism. 4. Chronic hypoxic respiratory failure with underlying chronic obstructive pulmonary disease. 5. Hyperlipidemia. 6. Hypertension. 7. Chronic nicotine dependence. Patient is a cigarette smoker. 8. Chronic congestive heart failure from systolic dysfunction, ejection fraction 45%, from alcoholic cardiomyopathy. 9. Chronic alcohol dependence. Patient continues to drink alcohol daily. PLAN: Patient initially was put on IV Cardizem. Home medications are resumed. Patient was put on bronchodilators and Solu-Medrol. Patient advised against smoking and alcohol. Will give a nicotine patch. Prognosis guarded. MMODL / IJN: [id number] /
[2017-11-29 21:05] LABS: Glucose,Whole Blood 220 mg/dL (75-99)
[2017-11-29] MEDS: INSULIN DETEMIR 100 UNIT/ML 10 ML VIAL SQ SCH (21:50)
[2017-11-29] MEDS: PRAVASTATIN SODIUM 40 MG TAB PO SCH (21:51)
[2017-11-29] MEDS: methylPREDNISolone SOD SUCCI 40 MG/ML 1 ML VIAL IV SCH (23:36)
[2017-11-30 06:02] LABS: Glucose,Whole Blood 131 mg/dL (75-99)
[2017-11-30] MEDS: INSULIN ASPART 100 UNIT/ML 1 ML 10 ML VIAL SQ SCH ×4 (06:47→21:52)
[2017-11-30] MEDS: methylPREDNISolone SOD SUCCI 40 MG/ML 1 ML VIAL IV SCH ×2 (07:32→18:03)
[2017-11-30] MEDS: THIAMINE 100 MG TAB PO SCH ×2 (07:33→18:04)
[2017-11-30] MEDS: AMIODARONE 200 MG TAB PO SCH (07:33)
[2017-11-30] MEDS: TAMSULOSIN 0.4 MG CAP.ER.24H PO SCH (07:33)
[2017-11-30] MEDS: RIVAROXABAN 20 MG TAB PO SCH (07:34)
[2017-11-30] MEDS: MAGNESIUM OXIDE 400 MG TAB PO SCH ×3 (07:34→20:35)
[2017-11-30] MEDS: FUROSEMIDE 40 MG TAB PO SCH ×2 (07:34→18:04)
[2017-11-30] MEDS: LISINOPRIL 2.5 MG TAB PO SCH ×2 (07:34→20:34)
[2017-11-30] MEDS: SPIRONOLACTONE 25 MG TAB PO SCH (07:34)
[2017-11-30] MEDS: METOPROLOL TARTRATE 50 MG TAB PO SCH ×2 (07:34→20:34)
[2017-11-30] MEDS: POTASSIUM CHLORIDE ER 20 MEQ TAB.ER PO SCH (07:35)
[2017-11-30] MEDS: HYDROcodone/APAP 10-325MG 1 EACH TAB PO PRN (07:43)
[2017-11-30] MEDS: FORMOTEROL FUMARATE 20 MCG/2 ML NEBU INHALATION SCH ×2 (08:00→21:23)
[2017-11-30] MEDS: BUDESONIDE 1 MG/2 ML NEBU INHALATION SCH ×2 (08:00→21:23)
[2017-11-30] MEDS: IPRATROPIUM-ALBUTEROL 3 ML NEB INHALATION SCH ×4 (08:00→21:23)
[2017-11-30 11:46] LABS: Glucose,Whole Blood 184 mg/dL (75-99)
--- NOTE | 2017-11-30 12:11 | P.PN ---
Subjective Progress Note Date: 11/30/17 This is a very pleasant 72-year-old white male patient of Dr. Georges, was brought to the hospital yesterday for evaluation of increased shortness of breath, coughing, and palpitations. Patient has a known history of severe oxygen-dependent COPD, chronic alcohol abuse, alcoholic cardiomyopathy, chronic atrial fibrillation, congestive heart failure, hypertension, hyperlipidemia, CVA involving the temporal lobe, chronic anemia, cervical and lumbar stenosis, previous episodes of pneumonia, and chronic and ongoing nicotine abuse. He used to see Dr. Virk in the office for his history of COPD, however has not been seen in over a year's time other than in consultation when in the hospital. He was recently hospitalized for acute exacerbation of COPD, A. fib with RVR, and discharged home on 11/19/2017. He is on Xarelto for chronic anticoagulation, amiodarone, nebulized Pulmicort, Perforomist, DuoNeb, oral diuretics in the form of Lasix 40 mg twice a day, Aldactone. The patient is seen today in consultation on the selective care unit. He is currently awake and alert in no acute distress. He states he is already breathing better today as compared to yesterday. Unfortunately the patient does continue to smoke spiked previous recommendations in regards to complete smoking cessation. He has not followed up in our office in quite some time. He states he has transportation issues. He has had frequent admissions to the hospital for A. fib with RVR and COPD exacerbations. This admission his chest x-ray does show some evidence of congestive heart failure. His ejection fraction is 20%. He was in A. fib with RVR again as well heart rate in the 150s. he is currently maintaining good O2 saturations in the high 90s on 3 L/m per nasal cannula. He is afebrile. Heart rate better controlled. White count 10.0. Hemoglobin 10.2. Troponins negative 3. ProBNP 1330. He has been initiated on DuoNeb inhalations 4 times a day and when necessary, Pulmicort and Perforomist inhalations twice a day, IV Solu-Medrol. He is on antiarrhythmics and anticoagulation. On 11/30/2017, the patient is resting comfortably in bed. Less short of breath compared to yesterday. The patient is admitted for a combination of COPD/CHF exacerbation. He is on DuoNeb about treatments around the clock in addition to Pulmicort Respules and Perforomist neb last treatment twice a day. The patient is also on IV Solu-Medrol 40 mg every 8 hours. The patient is on Lasix 40 mg by mouth twice a day. There are no new Complaints. He is on long-term anticoagulation with Xarelto. Objective - Vital Signs Vital signs: Vital Signs Temp 97.2 F L 11/30/17 07:45 Pulse 96 11/30/17 11:56 Resp 18 11/30/17 11:56 BP 106/70 11/30/17 07:45 Pulse Ox 99 11/30/17 07:45 Intake & Output 11/29/17 11/30/17 11/30/17 18:59 06:59 18:59 Intake Total 360 Output Total 300 Balance 360 -300 Weight 65.9 kg Intake: Oral 360 Output: Urine 300 - Exam GENERAL EXAM: Alert, 72-year-old white male comfortable in no apparent distress. HEAD: Normocephalic/atraumatic. EYES: Normal reaction of pupils, equal size. Conjunctiva pink, sclera white. NOSE: Clear with pink turbinates. THROAT: No erythema or exudates. NECK: No masses, no JVD, no thyroid enlargement, no adenopathy. CHEST: No chest wall deformity. Symmetrical expansion. LUNGS: Scattered diffuse rhonchi, and wheezes bilaterally, congestive cough with production of white sputum CVS: Regular rate and rhythm, normal S1 and S2, no gallops, no murmurs, no rubs ABDOMEN: Soft, nontender. No hepatosplenomegaly, normal bowel sounds, no guarding or rigidity. EXTREMITIES: No clubbing, no edema, no cyanosis, 2+ pulses and upper and lower extremities. MUSCULOSKELETAL: Muscle strength and tone normal. SPINE: No scoliosis or deformity SKIN: No rashes CENTRAL NERVOUS SYSTEM: Alert and oriented -3. No focal deficits, tone is normal in all 4 extremities. PSYCHIATRIC: Alert and oriented -3. Appropriate affect. Intact judgment and insight. - Labs CBC & Chem 7: 11/28/17 15:35 11/28/17 15:35 Labs: Abnormal Lab Results - Last 24 Hours (Table) 11/29/17 11/29/17 11/30/17 Range/Units 16:42 21:02 06:01 POC Glucose (mg/dL) 176 H 220 H 131 H (75-99) mg/dL 11/30/17 Range/Units 11:41 POC Glucose (mg/dL) 184 H (75-99) mg/dL Microbiology - Last 24 Hours (Table) 11/28/17 15:35 Blood Culture - Preliminary Blood No Growth after 24 hours Assessment and Plan Plan: Assessment: #1. Acute exacerbation of chronic obstructive pulmonary disease , improving slowly #2. Atrial fibrillation with rapid ventricular response, currently on amiodarone and the patient is on long-term and to coagulation with Xarelto #3. Acute on chronic hypoxic respiratory failure and worsening dyspnea secondary to the above #4. Advanced oxygen-dependent COPD, patient wears home O2 at 3 L/m #5. Recent hospitalization for COPD and A. fib with RVR, discharge home on #6. Chronic atrial fibrillation, on oral anticoagulation in the form of Xarelto. #7. Chronic and ongoing EtOH abuse #8. Chronic and ongoing nicotine abuse #9. Chronic congestive heart failure with systolic dysfunction #10. Hypertension, hyperlipidemia #11. History of CVA involving the temporal lobe #12. Chronic anemia #13. Cervical lumbar stenosis Plan Taper the Solu-Medrol to a dose of 40 mg every 8 hours. Continue the bronchodilators. Clinically improved. Less short of breath compared to yesterday. We'll continue to follow.
[2017-11-30 17:27] LABS: Glucose,Whole Blood 190 mg/dL (75-99)
[2017-11-30] MEDS: PRAVASTATIN SODIUM 40 MG TAB PO SCH (20:34)
--- NOTE | 2017-11-30 20:34 | PN ---
PROGRESS NOTE DATE OF SERVICE: 11/30/17 PRESENTING COMPLAINT: Short of breath. INTERVAL HISTORY: This patient who is a present smoker and drinking alcohol, presented with uncontrolled atrial fibrillation and COPD exacerbation. Breathing is a bit better. Tolerating a diet. Heart rate is running around 120s. REVIEW OF SYSTEMS: Done for constitutional, cardiovascular, GI, pulmonary; relevant findings as above. The patient has a slight cough. No sputum. CURRENT MEDICATIONS: Reviewed that include DuoNeb, Amiodarone, p.o. Lasix, IV Solu-Medrol, Lopressor, Xarelto. PHYSICAL EXAMINATION: Temperature 97.6, pulse 120s on telemetry, respiration 18, blood pressure 92/55, pulse ox 99% on 2 L. GENERAL APPEARANCE: Sitting up tired-appearing. EYES: Pupils equal. Conjunctivae normal. HEENT: External appearance of nose and ears normal. Oral cavity normal. NECK: JVD unable to assess. Mass not palpable. RESPIRATORY: Effort increased. Lungs, diminished breath sounds. Prolonged expiration. CARDIOVASCULAR: Heart sounds irregular, no edema. ABDOMEN: Soft, nontender. Liver and spleen not palpable. PSYCHIATRY: Awake, answering simple questions. INVESTIGATIONS: Accu-Cheks are noted. ASSESSMENT: 1. Persistent atrial fibrillation with rate still uncontrolled chronically on Xarelto. 2. Acute chronic obstructive pulmonary disease exacerbation long-standing smoker, slow to respond. 3. Macrocytic anemia from chronic alcoholism. 4. Chronic hypoxic respiratory failure from underlying chronic obstructive pulmonary disease. 5. Hyperlipidemia. 6. Essential hypertension. 7. Chronic nicotine dependence. Patient is a cigarette smoker. 8. Chronic congestive heart failure from systolic dysfunction, EF 45% from alcoholic cardiomyopathy. 9. Chronic alcohol dependence. Patient drinks alcohol daily. PLAN: Patient is still running heart rate in the 110s to 120. The breathing is a bit better. Will cut back on Solu-Medrol to 40 q.12. The patient is off the Cardizem drip. May need to add a very small dose of verapamil if heart rate remains up. Prognosis is guarded. MMODL / IJN: [id number] /
[2017-11-30 21:07] LABS: Glucose,Whole Blood 176 mg/dL (75-99)
[2017-11-30] MEDS: INSULIN DETEMIR 100 UNIT/ML 10 ML VIAL SQ SCH (21:52)
[2017-12-01 05:39] LABS: Glucose,Whole Blood 145 mg/dL (75-99)
[2017-12-01] MEDS: INSULIN ASPART 100 UNIT/ML 1 ML 10 ML VIAL SQ SCH ×4 (06:35→21:11)
[2017-12-01 06:40] LABS: Calcium 8.6 mg/dL (8.4-10.2); Magnesium 2.2 mg/dL (1.6-2.3)
[2017-12-01 06:47] LABS: Potassium 5.4 mmol/L (3.5-5.1)
[2017-12-01 07:57] LABS: Anisocytosis Slight; Basophils % (A) 0 %; Eosinophils % (A) 0 %; HCT 30.3 % (39.0-53.0); HGB 9.2 gm/dL (13.0-17.5); Hypochromasia Slight; Lymphocytes # (A) 0.8 k/uL (1.0-4.8); Lymphocytes % (A) 5 %; MCH 25.8 pg (25.0-35.0); MCHC 30.4 g/dL (31.0-37.0); Mean Platelet Volume 9.2; Monocytes # (A) 0.5 k/uL (0-1.0); Monocytes % (A) 4 %; Neutrophils # (A) 13.1 k/uL (1.3-7.7); Neutrophils % (A) 90 %; Platelet Count 265 k/uL (150-450); RBC 3.57 m/uL (4.30-5.90); RDW 17.6 % (11.5-15.5); WBC 14.5 k/uL (3.8-10.6)
[2017-12-01] MEDS: POTASSIUM CHLORIDE ER 20 MEQ TAB.ER PO SCH (08:10)
[2017-12-01] MEDS: methylPREDNISolone SOD SUCCI 40 MG/ML 1 ML VIAL IV SCH ×2 (08:15→20:28)
[2017-12-01] MEDS: RIVAROXABAN 20 MG TAB PO SCH (08:16)
[2017-12-01] MEDS: LISINOPRIL 2.5 MG TAB PO SCH ×2 (08:16→20:28)
[2017-12-01] MEDS: FUROSEMIDE 40 MG TAB PO SCH ×2 (08:16→16:37)
[2017-12-01] MEDS: TAMSULOSIN 0.4 MG CAP.ER.24H PO SCH (08:16)
[2017-12-01] MEDS: MAGNESIUM OXIDE 400 MG TAB PO SCH ×3 (08:16→20:28)
[2017-12-01] MEDS: AMIODARONE 200 MG TAB PO SCH (08:16)
[2017-12-01] MEDS: SPIRONOLACTONE 25 MG TAB PO SCH (08:16)
[2017-12-01] MEDS: METOPROLOL TARTRATE 50 MG TAB PO SCH ×3 (08:16→22:41)
[2017-12-01] MEDS: THIAMINE 100 MG TAB PO SCH ×2 (08:17→16:37)
[2017-12-01] MEDS: IPRATROPIUM-ALBUTEROL 3 ML NEB INHALATION SCH ×4 (08:26→19:51)
[2017-12-01] MEDS: HYDROcodone/APAP 10-325MG 1 EACH TAB PO PRN ×2 (08:26→16:46)
[2017-12-01] MEDS: FORMOTEROL FUMARATE 20 MCG/2 ML NEBU INHALATION SCH ×2 (08:26→19:51)
[2017-12-01] MEDS: BUDESONIDE 1 MG/2 ML NEBU INHALATION SCH ×2 (08:26→19:51)
[2017-12-01 11:18] LABS: Glucose,Whole Blood 123 mg/dL (75-99)
--- NOTE | 2017-12-01 14:25 | P.PN ---
Subjective Progress Note Date: 12/01/17 This is a 72-year-old gentleman with known history of chronic alcoholism, paroxysmal atrial fibrillation, COPD, hyperlipidemia, caffeine dependence, hypertension, diabetes, who was recently in the hospital the end of October with COPD exacerbation. He presents to the hospital on this occasion again with severe shortness of breath. According to the patient, he could not even walk a short distance without becoming extremely short of breath. His EKG on arrival here showed atrial fibrillation with a rapid ventricular response, right bundle branch block pattern. Chest x-ray did not reveal any active cardiopulmonary disease. There is clearing of minimal atelectasis as compared with prior x-ray. Blood pressure on arrival here 107/73, heart rate in the 120 range, temperature 99.2, 100% on 3 L of oxygen. The pressure this morning 105/ 60 with a heart rate in the 80s, 100% on 3 L of oxygen. Afebrile. White blood cell count is normal, hemoglobin 10.2, platelet count 254. Sodium 136, potassium 4.6, chloride 102, BUN 13, creatinine 0.8. Magnesium 1.7. Troponins are negative 3. BNP [id number]. His BNP level on this most recent admission was 3150. Most recent echocardiogram with Doppler study was performed in September of this year which revealed severe global hypokinesia with an ejection fraction of less than 20%. At the time of my examination this morning, patient states his breathing is significantly improved from admission. Still appears quite short of breath. Very wheezy with decreased air exchange throughout. Continues to be in atrial fibrillation this morning, heart rate in the 80s. 12/01/2017 Patient seen and examined this morning, feeling significantly better overall. Continues to be in atrial fibrillation with controlled ventricular response today. He did diuresis well on IV Lasix. He is currently on by mouth Lasix 40 mg twice a day at this time. Let pressure 116/70 with a heart rate of 90, blood cell count 14.5, hemoglobin 9.2, platelet count 265. Sodium 137, potassium 5.4, BUN 48, creatinine 1.0. Magnesium 2.1. Objective - Vital Signs Vital signs: Vital Signs Temp 97.7 F 12/01/17 11:26 Pulse 104 H 12/01/17 12:04 Resp 18 12/01/17 11:26 BP 117/71 12/01/17 11:26 Pulse Ox 100 08/06/18 11:26 Intake & Output 11/30/17 12/01/17 12/01/17 18:59 06:59 18:59 Intake Total 256 793 6184 Output Total 300 750 Balance 180 -550 1185 Weight 65.8 kg Intake: Oral 718 031 8631 Output: Urine 300 750 Other: Voiding Method Urinal Urinal # Voids 2 - Labs CBC & Chem 7: 12/01/17 06:00 12/01/17 06:00 Labs: Abnormal Lab Results - Last 24 Hours (Table) 11/30/17 11/30/17 12/01/17 Range/Units 16:46 21:05 05:38 WBC (3.8-10.6) k/uL RBC (4.30-5.90) m/uL Hgb (13.0-17.5) gm/dL Hct (39.0-53.0) % MCHC (31.0-37.0) g/dL RDW (11.5-15.5) % Neutrophils # (1.3-7.7) k/uL Lymphocytes # (1.0-4.8) k/uL Potassium (3.5-5.1) mmol/L BUN (9-20) mg/dL Glucose (74-99) mg/dL POC Glucose (mg/dL) 190 H 176 H 145 H (75-99) mg/dL 12/01/17 12/01/17 12/01/17 Range/Units 06:00 06:00 11:17 WBC 14.5 H (3.8-10.6) k/uL RBC 3.57 L (4.30-5.90) m/uL Hgb 9.2 L (13.0-17.5) gm/dL Hct 30.3 L (39.0-53.0) % MCHC 30.4 L (31.0-37.0) g/dL RDW 17.6 H (11.5-15.5) % Neutrophils # 13.1 H (1.3-7.7) k/uL Lymphocytes # 0.8 L (1.0-4.8) k/uL Potassium 5.4 H (3.5-5.1) mmol/L BUN 48 H (9-20) mg/dL Glucose 118 H (74-99) mg/dL POC Glucose (mg/dL) 123 H (75-99) mg/dL Microbiology - Last 24 Hours (Table) 11/28/17 15:35 Blood Culture - Preliminary Blood No Growth after 48 hours Assessment and Plan Plan: Assessment and plan #1 symptoms of severe shortness of breath, likely secondary to exacerbation of COPD #2 atrial fibrillation with rapid ventricular response, on anticoagulation in the form of Xarelto #3 nonischemic cardiomyopathy with documented ejection fraction of 20% by echo done in September #3 chronic EtOH use #4 nicotine dependence #5 COPD #6 hypertension #7 hyperlipidemia #8 diabetes Plan From cardiology's perspective, we'll recommend to continue the patient on his current medications. Continue to monitor for 24 hours. DNP note has been reviewed, I agree with a documented findings and plan of care. Patient was seen and examined.
--- NOTE | 2017-12-01 14:41 | P.PN ---
Subjective Progress Note Date: 12/01/17 Principal diagnosis: Acute exacerbation of chronic obstructive pulmonary disease, improving, A. fib RVR This is a very pleasant 72-year-old white male patient of Dr. Georges, was brought to the hospital yesterday for evaluation of increased shortness of breath, coughing, and palpitations. Patient has a known history of severe oxygen-dependent COPD, chronic alcohol abuse, alcoholic cardiomyopathy, chronic atrial fibrillation, congestive heart failure, hypertension, hyperlipidemia, CVA involving the temporal lobe, chronic anemia, cervical and lumbar stenosis, previous episodes of pneumonia, and chronic and ongoing nicotine abuse. He used to see Dr. Virk in the office for his history of COPD, however has not been seen in over a year's time other than in consultation when in the hospital. He was recently hospitalized for acute exacerbation of COPD, A. fib with RVR, and discharged home on 11/19/2017. He is on Xarelto for chronic anticoagulation, amiodarone, nebulized Pulmicort, Perforomist, DuoNeb, oral diuretics in the form of Lasix 40 mg twice a day, Aldactone. The patient is seen today in consultation on the selective care unit. He is currently awake and alert in no acute distress. He states he is already breathing better today as compared to yesterday. Unfortunately the patient does continue to smoke spiked previous recommendations in regards to complete smoking cessation. He has not followed up in our office in quite some time. He states he has transportation issues. He has had frequent admissions to the hospital for A. fib with RVR and COPD exacerbations. This admission his chest x-ray does show some evidence of congestive heart failure. His ejection fraction is 20%. He was in A. fib with RVR again as well heart rate in the 150s. he is currently maintaining good O2 saturations in the high 90s on 3 L/m per nasal cannula. He is afebrile. Heart rate better controlled. White count 10.0. Hemoglobin 10.2. Troponins negative 3. ProBNP 1330. He has been initiated on DuoNeb inhalations 4 times a day and when necessary, Pulmicort and Perforomist inhalations twice a day, IV Solu-Medrol. He is on antiarrhythmics and anticoagulation. On 11/30/2017, the patient is resting comfortably in bed. Less short of breath compared to yesterday. The patient is admitted for a combination of COPD/CHF exacerbation. He is on DuoNeb about treatments around the clock in addition to Pulmicort Respules and Perforomist neb last treatment twice a day. The patient is also on IV Solu-Medrol 40 mg every 8 hours. The patient is on Lasix 40 mg by mouth twice a day. There are no new Complaints. He is on long-term anticoagulation with Xarelto. On 12/01/2017 patient seen in follow-up on selective care unit. Remains stable , improving, lung sounds are positive for some scattered wheezes, patient is still dyspneic with exertion. He is being treated with combination of nebulized bronchodilators, Pulmicort, Perforomist, IV steroids. He is on oral diuretics, he is on oral amiodarone, remains in atrial fibrillation, his rate is ranging from 101-120 BPM, he is afebrile, currently on 1 L per nasal cannula and his pulse ox 100%. Maintenance on oral anticoagulation in the form of Xarelto, his labs were noted, WBC is 14.5, hemoglobin is 9.2, potassium is 5.4, B1 is 48 and creatinine is 1.05 Objective - Vital Signs Vital signs: Vital Signs Temp 97.7 F 12/01/17 11:26 Pulse 104 H 12/01/17 12:04 Resp 18 12/01/17 11:26 BP 117/71 12/01/17 11:26 Pulse Ox 100 12/01/17 11:26 Intake & Output 11/30/17 12/01/17 12/01/17 18:59 06:59 18:59 Intake Total 618 527 2248 Output Total 300 750 Balance 180 -550 1185 Weight 65.8 kg Intake: Oral 682 222 3655 Output: Urine 300 750 Other: Voiding Method Urinal Urinal # Voids 2 - Exam GENERAL EXAM: Alert, 72-year-old white male comfortable in no apparent distress. HEAD: Normocephalic/atraumatic. EYES: Normal reaction of pupils, equal size. Conjunctiva pink, sclera white. NOSE: Clear with pink turbinates. THROAT: No erythema or exudates. NECK: No masses, no JVD, no thyroid enlargement, no adenopathy. CHEST: No chest wall deformity. Symmetrical expansion. LUNGS: Scattered diffuse rhonchi, and wheezes bilaterally, congestive cough with production of white sputum CVS: Regular rate and rhythm, normal S1 and S2, no gallops, no murmurs, no rubs ABDOMEN: Soft, nontender. No hepatosplenomegaly, normal bowel sounds, no guarding or rigidity. EXTREMITIES: No clubbing, no edema, no cyanosis, 2+ pulses and upper and lower extremities. MUSCULOSKELETAL: Muscle strength and tone normal. SPINE: No scoliosis or deformity SKIN: No rashes CENTRAL NERVOUS SYSTEM: Alert and oriented -3. No focal deficits, tone is normal in all 4 extremities. PSYCHIATRIC: Alert and oriented -3. Appropriate affect. Intact judgment and insight. - Labs CBC & Chem 7: 12/01/17 06:00 12/01/17 06:00 Labs: Abnormal Lab Results - Last 24 Hours (Table) 11/30/17 11/30/17 12/01/17 Range/Units 16:46 21:05 05:38 WBC (3.8-10.6) k/uL RBC (4.30-5.90) m/uL Hgb (13.0-17.5) gm/dL Hct (39.0-53.0) % MCHC (31.0-37.0) g/dL RDW (11.5-15.5) % Neutrophils # (1.3-7.7) k/uL Lymphocytes # (1.0-4.8) k/uL Potassium (3.5-5.1) mmol/L BUN (9-20) mg/dL Glucose (74-99) mg/dL POC Glucose (mg/dL) 190 H 176 H 145 H (75-99) mg/dL 12/01/17 12/01/17 12/01/17 Range/Units 06:00 06:00 11:17 WBC 14.5 H (3.8-10.6) k/uL RBC 3.57 L (4.30-5.90) m/uL Hgb 9.2 L (13.0-17.5) gm/dL Hct 30.3 L (39.0-53.0) % MCHC 30.4 L (31.0-37.0) g/dL RDW 17.6 H (11.5-15.5) % Neutrophils # 13.1 H (1.3-7.7) k/uL Lymphocytes # 0.8 L (1.0-4.8) k/uL Potassium 5.4 H (3.5-5.1) mmol/L BUN 48 H (9-20) mg/dL Glucose 118 H (74-99) mg/dL POC Glucose (mg/dL) 123 H (75-99) mg/dL Microbiology - Last 24 Hours (Table) 11/28/17 15:35 Blood Culture - Preliminary Blood No Growth after 48 hours Assessment and Plan Plan: Assessment: #1. Acute exacerbation of chronic obstructive pulmonary disease , improving slowly #2. Atrial fibrillation with rapid ventricular response, currently on amiodarone and the patient is on long-term and to coagulation with Xarelto #3. Acute on chronic hypoxic respiratory failure and worsening dyspnea secondary to the above #4. Advanced oxygen-dependent COPD, patient wears home O2 at 3 L/m #5. Recent hospitalization for COPD and A. fib with RVR, discharge home on #6. Chronic atrial fibrillation, on oral anticoagulation in the form of Xarelto. #7. Chronic and ongoing EtOH abuse #8. Chronic and ongoing nicotine abuse #9. Chronic congestive heart failure with systolic dysfunction #10. Hypertension, hyperlipidemia #11. History of CVA involving the temporal lobe #12. Chronic anemia #13. Cervical lumbar stenosis Plan Continue current medical treatment, continue systemic steroids, Pulmicort, Perforomist and nebulized bronchodilators, patient continues to improve, will require another 24 hours of inpatient treatment. Continue oral anticoagulation and oral amiodarone. I performed a history & physical examination of the patient and discussed their management with my nurse practitioner, Carolina Cochran. I reviewed the nurse practitioner's note and agree with the documented findings and plan of care. Lung sounds are positive for diffuse wheezes throughout the lung rocha. The findings and the impression was discussed with the patient. I attest to the documentation by the nurse practitioner. Time with Patient: Less than 30
[2017-12-01 16:27] LABS: Glucose,Whole Blood 265 mg/dL (75-99)
--- NOTE | 2017-12-01 16:35 | PN ---
PROGRESS NOTE DATE OF SERVICE: 11/30/2017 This patient is admitted with congestive cardiac failure. Patient has cardiomyopathy with severely impaired left ventricular systolic function. The patient is lying comfortably in bed. Denies any orthopnea or PND. Blood pressure is 103/57 mmHg. Patient's respirations are not labored. First and second heart sounds are normal. Lungs are fairly clear to auscultation and percussion. Patient has good urine output. Patient's hemoglobin is 9.2 and creatinine is 1.05. Patient will be continued on the current medications and he will be switched to p.o. Lasix. MMODL / IJN: [id number] /
[2017-12-01] MEDS: PRAVASTATIN SODIUM 40 MG TAB PO SCH (20:28)
[2017-12-01 21:05] LABS: Glucose,Whole Blood 203 mg/dL (75-99)
[2017-12-01] MEDS: INSULIN DETEMIR 100 UNIT/ML 10 ML VIAL SQ SCH (21:11)
--- NOTE | 2017-12-01 21:56 | PN ---
PROGRESS NOTE DATE OF SERVICE: 12/01/2017 PRESENTING COMPLAINT: Short of breath. INTERVAL HISTORY: This patient, who is a smoker and drinks alcohol, presented with uncontrolled atrial fibrillation and COPD exacerbation. Breathing has improved. Heart rate is better controlled. Patient is tolerating his diet. REVIEW OF SYSTEMS: Done for constitutional, cardiovascular, GI, pulmonary; relevant findings as above. CURRENT MEDICATIONS: Reviewed. They include DuoNeb, IV Solu-Medrol, p.o. Lasix. PHYSICAL EXAMINATION: Temperature 97.7, pulse 100, respiration 18, blood pressure 117/71, pulse ox 100% on 1 L. GENERAL: Resting. More comfortable. Sitting up, awake. EYES: Pupils equal. Conjunctivae normal. HEENT: External appearance of nose and ears normal. Oral cavity normal. Decreased hearing. NECK: JVD unable to assess. Mass not palpable. RESPIRATORY: Effort increased. LUNGS: Decreased breath sounds. CARDIOVASCULAR: Heart sounds irregular. No edema. ABDOMEN: Soft, nontender. Liver and spleen not palpable. PSYCHIATRY: Awake. Answering questions more appropriately. INVESTIGATIONS: White count 14.5, hemoglobin 9.2, potassium 5.4, BUN 48, creatinine 1.05. ASSESSMENT: 1. Persistent atrial fibrillation with rate uncontrolled up until yesterday; now better controlled, chronically on Xarelto. 2. Acute chronic obstructive pulmonary disease exacerbation in a long-standing smoker, improving. 3. Macrocytic anemia from chronic alcoholism. 4. Chronic hypoxic respiratory failure from underlying chronic obstructive pulmonary disease. 5. Hyperlipidemia. 6. Essential hypertension. 7. Chronic nicotine dependence. Patient is a cigarette smoker. 8. Chronic congestive heart failure from systolic dysfunction, ejection fraction 45%, from alcoholic cardiomyopathy. 9. Chronic alcohol dependence. Patient drinks alcohol daily. PLAN: Patient will be switched to oral prednisone in the morning. Heart rate is better controlled. Looking at probably discharge tomorrow. MMODL / IJN: [id number] /
[2017-12-02 05:07] VITALS: RESP 18
[2017-12-02 06:12] LABS: Glucose,Whole Blood 140 mg/dL (75-99)
[2017-12-02 06:42] LABS: Anisocytosis Slight; Basophils % (A) 0 %; Eosinophils % (A) 0 %; HCT 28.7 % (39.0-53.0); HGB 9.2 gm/dL (13.0-17.5); Hypochromasia Marked; Lymphocytes # (A) 0.7 k/uL (1.0-4.8); Lymphocytes % (A) 7 %; MCH 27.3 pg (25.0-35.0); MCV 85.4 fL (80.0-100.0); Mean Platelet Volume 7.4; Monocytes # (A) 0.3 k/uL (0-1.0); Monocytes % (A) 3 %; Neutrophils # (A) 9.8 k/uL (1.3-7.7); Neutrophils % (A) 89 %; Platelet Count 270 k/uL (150-450); RBC 3.36 m/uL (4.30-5.90); RDW 17.2 % (11.5-15.5); WBC 10.9 k/uL (3.8-10.6)
[2017-12-02] MEDS: INSULIN ASPART 100 UNIT/ML 1 ML 10 ML VIAL SQ SCH ×3 (06:46→16:01)
[2017-12-02 07:12] LABS: Calcium 8.6 mg/dL (8.4-10.2)
[2017-12-02 07:13] LABS: Potassium 4.8 mmol/L (3.5-5.1)
[2017-12-02] MEDS: IPRATROPIUM-ALBUTEROL 3 ML NEB INHALATION SCH ×3 (08:43→16:51)
[2017-12-02] MEDS: FORMOTEROL FUMARATE 20 MCG/2 ML NEBU INHALATION SCH (08:44)
[2017-12-02] MEDS: BUDESONIDE 1 MG/2 ML NEBU INHALATION SCH (08:44)
[2017-12-02] MEDS: FUROSEMIDE 40 MG TAB PO SCH ×2 (08:46→16:05)
[2017-12-02] MEDS: AMIODARONE 200 MG TAB PO SCH (08:46)
[2017-12-02] MEDS: POTASSIUM CHLORIDE ER 20 MEQ TAB.ER PO SCH (08:47)
[2017-12-02] MEDS: LISINOPRIL 2.5 MG TAB PO SCH (08:47)
[2017-12-02] MEDS: MAGNESIUM OXIDE 400 MG TAB PO SCH ×2 (08:47→16:05)
[2017-12-02] MEDS: METOPROLOL TARTRATE 50 MG TAB PO SCH (08:47)
[2017-12-02] MEDS: RIVAROXABAN 20 MG TAB PO SCH (08:48)
[2017-12-02] MEDS: TAMSULOSIN 0.4 MG CAP.ER.24H PO SCH (08:48)
[2017-12-02] MEDS: THIAMINE 100 MG TAB PO SCH ×2 (08:48→16:05)
[2017-12-02] MEDS: SPIRONOLACTONE 25 MG TAB PO SCH (08:48)
[2017-12-02] MEDS ORDERED: predniSONE 20 MG TAB PO SCH (09:00)
[2017-12-02 09:39] VITALS: TEMP 97.8
--- NOTE | 2017-12-02 11:11 | P.PN ---
Subjective Progress Note Date: 12/02/17 Principal diagnosis: Acute exacerbation of chronic obstructive pulmonary disease. Atrial fibrillation with rapid ventricular response. This is a very pleasant 72-year-old white male patient of Dr. Georges, was brought to the hospital yesterday for evaluation of increased shortness of breath, coughing, and palpitations. Patient has a known history of severe oxygen-dependent COPD, chronic alcohol abuse, alcoholic cardiomyopathy, chronic atrial fibrillation, congestive heart failure, hypertension, hyperlipidemia, CVA involving the temporal lobe, chronic anemia, cervical and lumbar stenosis, previous episodes of pneumonia, and chronic and ongoing nicotine abuse. He used to see Dr. Virk in the office for his history of COPD, however has not been seen in over a year's time other than in consultation when in the hospital. He was recently hospitalized for acute exacerbation of COPD, A. fib with RVR, and discharged home on 11/19/2017. He is on Xarelto for chronic anticoagulation, amiodarone, nebulized Pulmicort, Perforomist, DuoNeb, oral diuretics in the form of Lasix 40 mg twice a day, Aldactone. The patient is seen today in consultation on the selective care unit. He is currently awake and alert in no acute distress. He states he is already breathing better today as compared to yesterday. Unfortunately the patient does continue to smoke spiked previous recommendations in regards to complete smoking cessation. He has not followed up in our office in quite some time. He states he has transportation issues. He has had frequent admissions to the hospital for A. fib with RVR and COPD exacerbations. This admission his chest x-ray does show some evidence of congestive heart failure. His ejection fraction is 20%. He was in A. fib with RVR again as well heart rate in the 150s. he is currently maintaining good O2 saturations in the high 90s on 3 L/m per nasal cannula. He is afebrile. Heart rate better controlled. White count 10.0. Hemoglobin 10.2. Troponins negative 3. ProBNP 1330. He has been initiated on DuoNeb inhalations 4 times a day and when necessary, Pulmicort and Perforomist inhalations twice a day, IV Solu-Medrol. He is on antiarrhythmics and anticoagulation. On 11/30/2017, the patient is resting comfortably in bed. Less short of breath compared to yesterday. The patient is admitted for a combination of COPD/CHF exacerbation. He is on DuoNeb about treatments around the clock in addition to Pulmicort Respules and Perforomist neb last treatment twice a day. The patient is also on IV Solu-Medrol 40 mg every 8 hours. The patient is on Lasix 40 mg by mouth twice a day. There are no new Complaints. He is on long-term anticoagulation with Xarelto. On 12/01/2017 patient seen in follow-up on selective care unit. Remains stable , improving, lung sounds are positive for some scattered wheezes, patient is still dyspneic with exertion. He is being treated with combination of nebulized bronchodilators, Pulmicort, Perforomist, IV steroids. He is on oral diuretics, he is on oral amiodarone, remains in atrial fibrillation, his rate is ranging from 101-120 BPM, he is afebrile, currently on 1 L per nasal cannula and his pulse ox 100%. Maintenance on oral anticoagulation in the form of Xarelto, his labs were noted, WBC is 14.5, hemoglobin is 9.2, potassium is 5.4, B1 is 48 and creatinine is 1.05 The patient is seen again today 12/02/2017 in follow-up on the selective care unit. He is currently resting comfortably in bed. He is awake and alert in no acute distress. He denies any worsening shortness of breath, cough or congestion. He is afebrile. Maintaining O2 saturations up to 100% on 2 L/m per nasal cannula. He's been hemodynamically stable. Blood cultures reveal no growth. White count 10.9. Hemoglobin 9.2. Creatinine 1.10. Objective - Vital Signs Vital signs: Vital Signs Temp 97.8 F 12/02/17 08:00 Pulse 92 12/02/17 09:10 Resp 18 12/02/17 08:00 BP 116/65 12/02/17 08:00 Pulse Ox 100 12/02/17 08:46 Intake & Output 12/01/17 12/02/17 12/02/17 18:59 06:59 18:59 Intake Total 1422 400 440 Output Total 1700 1000 Balance -278 -600 440 Weight 65.9 kg Intake: Oral 1422 400 440 Output: Urine 1700 1000 Other: Voiding Method Urinal Urinal # Voids 5 # Bowel Movements 2 - Exam GENERAL EXAM: Alert, 72-year-old white male comfortable in no apparent distress. HEAD: Normocephalic/atraumatic. EYES: Normal reaction of pupils, equal size. Conjunctiva pink, sclera white. NOSE: Clear with pink turbinates. THROAT: No erythema or exudates. NECK: No masses, no JVD, no thyroid enlargement, no adenopathy. CHEST: No chest wall deformity. Symmetrical expansion. LUNGS: Scattered diffuse rhonchi, and wheezes bilaterally, congestive cough with production of white sputum CVS: Regular rate and rhythm, normal S1 and S2, no gallops, no murmurs, no rubs ABDOMEN: Soft, nontender. No hepatosplenomegaly, normal bowel sounds, no guarding or rigidity. EXTREMITIES: No clubbing, no edema, no cyanosis, 2+ pulses and upper and lower extremities. MUSCULOSKELETAL: Muscle strength and tone normal. SPINE: No scoliosis or deformity SKIN: No rashes CENTRAL NERVOUS SYSTEM: Alert and oriented -3. No focal deficits, tone is normal in all 4 extremities. PSYCHIATRIC: Alert and oriented -3. Appropriate affect. Intact judgment and insight. - Labs CBC & Chem 7: 12/02/17 05:55 12/02/17 05:55 Labs: Abnormal Lab Results - Last 24 Hours (Table) 12/01/17 12/01/17 12/01/17 Range/Units 11:17 16:25 20:53 WBC (3.8-10.6) k/uL RBC (4.30-5.90) m/uL Hgb (13.0-17.5) gm/dL Hct (39.0-53.0) % RDW (11.5-15.5) % Neutrophils # (1.3-7.7) k/uL Lymphocytes # (1.0-4.8) k/uL Carbon Dioxide (22-30) mmol/L BUN (9-20) mg/dL Glucose (74-99) mg/dL POC Glucose (mg/dL) 123 H 265 H 203 H (75-99) mg/dL 12/02/17 12/02/17 12/02/17 Range/Units 05:55 05:55 05:57 WBC 10.9 H (3.8-10.6) k/uL RBC 3.36 L (4.30-5.90) m/uL Hgb 9.2 L (13.0-17.5) gm/dL Hct 28.7 L (39.0-53.0) % RDW 17.2 H (11.5-15.5) % Neutrophils # 9.8 H (1.3-7.7) k/uL Lymphocytes # 0.7 L (1.0-4.8) k/uL Carbon Dioxide 32 H (22-30) mmol/L BUN 51 H (9-20) mg/dL Glucose 120 H (74-99) mg/dL POC Glucose (mg/dL) 140 H (75-99) mg/dL Microbiology - Last 24 Hours (Table) 11/28/17 15:35 Blood Culture - Preliminary Blood No Growth after 72 hours Assessment and Plan Assessment: Assessment: #1. Acute exacerbation of chronic obstructive pulmonary disease #2. Atrial fibrillation with rapid ventricular response, currently on amiodarone. #3. Acute on chronic hypoxic respiratory failure and worsening dyspnea secondary to the above #4. Advanced oxygen-dependent COPD, patient wears home O2 at 3 L/m #5. Recent hospitalization for COPD and A. fib with RVR, discharge home on #6. Chronic atrial fibrillation, on oral anticoagulation in the form of Xarelto. #7. Chronic and ongoing EtOH abuse #8. Chronic and ongoing nicotine abuse #9. Chronic congestive heart failure with systolic dysfunction #10. Hypertension, hyperlipidemia #11. History of CVA involving the temporal lobe #12. Chronic anemia #13. Cervical lumbar stenosis Plan: The patient was seen and evaluated by Dr. Tejeda. Patient is stable for discharge from the pulmonary standpoint. Complete prednisone taper. We'll continue with the current treatment plan. We will increase his activity as tolerated. The patient is again educated regarding the importance of complete smoking cessation along with medication compliance and provider follow-ups in the outpatient setting. We will continue to follow and make further recommendations based on his clinical status. I, the cosigning physician, performed a history & physical examination of the patient. Lungs sounds with faint crackles in the posterior bases. Diminished. Maintaining good O2 saturations in the 90s on 2 liters per minute per nasal cannula. I discussed the assessment and plan of care with my nurse practitioner , Janie Bliar. I attest to the above note as dictated by her.
[2017-12-02 12:21] LABS: Glucose,Whole Blood 124 mg/dL (75-99)
--- NOTE | 2017-12-02 14:46 | P.PN ---
Subjective Progress Note Date: 12/02/17 This is a 72-year-old gentleman with known history of chronic alcoholism, paroxysmal atrial fibrillation, COPD, hyperlipidemia, caffeine dependence, hypertension, diabetes, who was recently in the hospital the end of October with COPD exacerbation. He presents to the hospital on this occasion again with severe shortness of breath. According to the patient, he could not even walk a short distance without becoming extremely short of breath. His EKG on arrival here showed atrial fibrillation with a rapid ventricular response, right bundle branch block pattern. Chest x-ray did not reveal any active cardiopulmonary disease. There is clearing of minimal atelectasis as compared with prior x-ray. Blood pressure on arrival here 107/73, heart rate in the 120 range, temperature 99.2, 100% on 3 L of oxygen. The pressure this morning 105/ 60 with a heart rate in the 80s, 100% on 3 L of oxygen. Afebrile. White blood cell count is normal, hemoglobin 10.2, platelet count 254. Sodium 136, potassium 4.6, chloride 102, BUN 13, creatinine 0.8. Magnesium 1.7. Troponins are negative 3. BNP [id number]. His BNP level on this most recent admission was 3150. Most recent echocardiogram with Doppler study was performed in September of this year which revealed severe global hypokinesia with an ejection fraction of less than 20%. At the time of my examination this morning, patient states his breathing is significantly improved from admission. Still appears quite short of breath. Very wheezy with decreased air exchange throughout. Continues to be in atrial fibrillation this morning, heart rate in the 80s. 12/01/2017 Patient seen and examined this morning, feeling significantly better overall. Continues to be in atrial fibrillation with controlled ventricular response today. He did diuresis well on IV Lasix. He is currently on by mouth Lasix 40 mg twice a day at this time. Blood pressure 116/70 with a heart rate of 90, blood cell count 14.5, hemoglobin 9.2, platelet count 265. Sodium 137, potassium 5.4, BUN 48, creatinine 1.0. Magnesium 2.1. 12/02/2017 Patient seen and examined this morning hemodynamically stable. Breathing stable. Objective - Vital Signs Vital signs: Vital Signs Temp 97.8 F 12/02/17 08:00 Pulse 94 12/02/17 12:47 Resp 18 12/02/17 12:00 BP 115/66 12/02/17 12:00 Pulse Ox 99 12/02/17 12:00 Intake & Output 12/01/17 12/02/17 12/02/17 18:59 06:59 18:59 Intake Total 1422 400 680 Output Total 1700 1000 500 Balance -278 -600 180 Weight 65.9 kg Intake: Oral 1422 400 680 Output: Urine 1700 1000 500 Other: Voiding Method Urinal Urinal # Voids 5 300 # Bowel Movements 2 0 - Exam GENERAL EXAM: Alert, 72-year-old white male comfortable in no apparent distress. HEAD: Normocephalic/atraumatic. EYES: Normal reaction of pupils, equal size. Conjunctiva pink, sclera white. NOSE: Clear with pink turbinates. THROAT: No erythema or exudates. NECK: No masses, no JVD, no thyroid enlargement, no adenopathy. CHEST: No chest wall deformity. Symmetrical expansion. LUNGS: Scattered diffuse rhonchi, and wheezes bilaterally, congestive cough with production of white sputum CVS: Regular rate and rhythm, normal S1 and S2, no gallops, no murmurs, no rubs ABDOMEN: Soft, nontender. No hepatosplenomegaly, normal bowel sounds, no guarding or rigidity. EXTREMITIES: No clubbing, no edema, no cyanosis, 2+ pulses and upper and lower extremities. MUSCULOSKELETAL: Muscle strength and tone normal. SPINE: No scoliosis or deformity SKIN: No rashes CENTRAL NERVOUS SYSTEM: Alert and oriented -3. No focal deficits, tone is normal in all 4 extremities. PSYCHIATRIC: Alert and oriented -3. Appropriate affect. Intact judgment and insight. - Labs CBC & Chem 7: 12/02/17 05:55 12/02/17 05:55 Labs: Abnormal Lab Results - Last 24 Hours (Table) 12/01/17 12/01/17 12/02/17 Range/Units 16:25 20:53 05:55 WBC (3.8-10.6) k/uL RBC (4.30-5.90) m/uL Hgb (13.0-17.5) gm/dL Hct (39.0-53.0) % RDW (11.5-15.5) % Neutrophils # (1.3-7.7) k/uL Lymphocytes # (1.0-4.8) k/uL Carbon Dioxide 32 H (22-30) mmol/L BUN 51 H (9-20) mg/dL Glucose 120 H (74-99) mg/dL POC Glucose (mg/dL) 265 H 203 H (75-99) mg/dL 12/02/17 12/02/17 12/02/17 Range/Units 05:55 05:57 12:00 WBC 10.9 H (3.8-10.6) k/uL RBC 3.36 L (4.30-5.90) m/uL Hgb 9.2 L (13.0-17.5) gm/dL Hct 28.7 L (39.0-53.0) % RDW 17.2 H (11.5-15.5) % Neutrophils # 9.8 H (1.3-7.7) k/uL Lymphocytes # 0.7 L (1.0-4.8) k/uL Carbon Dioxide (22-30) mmol/L BUN (9-20) mg/dL Glucose (74-99) mg/dL POC Glucose (mg/dL) 140 H 124 H (75-99) mg/dL Microbiology - Last 24 Hours (Table) 11/28/17 15:35 Blood Culture - Preliminary Blood No Growth after 72 hours Assessment and Plan Plan: Assessment and plan #1 symptoms of severe shortness of breath, likely secondary to exacerbation of COPD #2 atrial fibrillation with rapid ventricular response, on anticoagulation in the form of Xarelto #3 nonischemic cardiomyopathy with documented ejection fraction of 20% by echo done in September #3 chronic EtOH use #4 nicotine dependence #5 COPD #6 hypertension #7 hyperlipidemia #8 diabetes Plan From cardiology's perspective, we'll recommend to continue the patient on his current medications. He may be able to be discharged home once cleared by primary. We will make him a follow-up appointment in the office post discharge. DNP note has been reviewed, I agree with a documented findings and plan of care. Patient was seen and examined.
[2017-12-02 16:23] LABS: Glucose,Whole Blood 257 mg/dL (75-99)
[2017-12-02 17:38] VITALS: BP 110/66; PULSE 87
--- NOTE | 2017-12-03 07:43 | DS ---
DISCHARGE SUMMARY DATE OF ADMISSION: 11/28/2017. DATE OF DISCHARGE: 12/02/2017 FINAL DIAGNOSES: 1. Persistent atrial fibrillation with rapid ventricular rate, present on admission. 2. Acute chronic obstructive pulmonary disease exacerbation long-standing smoker, present on admission. 3. Macrocytic anemia from chronic alcoholism. 4. Chronic hypoxic respiratory failure from underlying chronic obstructive pulmonary disease. 5. Hyperlipidemia. 6. Essential hypertension. 7. Chronic nicotine dependence, patient active cigarette smoker. 8. Chronic congestive heart failure from systolic dysfunction, ejection fraction 45% from alcoholic cardiomyopathy. 9. Chronic alcohol dependence. HOSPITAL COURSE: This patient continues to smoke and drink alcohol, presented yet again with atrial fibrillation, rapid ventricular rate, COPD exacerbation. Eventually by the time of discharge, heart rate was better controlled. The patient is tolerating a diet. Breathing is better. CONSULTATION: Dr. Tejeda from Pulmonary, Dr. Sebas Mora from Cardiology. PHYSICAL EXAMINATION: On examination, afebrile. Pulse 87, respiratory 18, blood pressure 110/66, pulse ox 98% on room air. Lungs decreased breath sounds. CARDIOVASCULAR: Heart sounds irregular. Psych: AO x3. DISCHARGE MEDICATIONS: 1. ProAir 2 puffs q.6h p.r.n. 2. Xarelto 20 mg p.o. daily. 3. DuoNeb 3 mL q.i.d. 4. Cordarone 400 mg p.o. daily. 5. Pulmicort 1 mg b.i.d. 6. Perforomist 20 mcg b.i.d. 7. Pravachol 40 mg p.o. q.h.s. 8. Aspirin 81 mg p.o. daily. 9. Lasix 40 mg p.o. b.i.d. 10.Pengilly 10 1 tab q.6h p.r.n. 11.Magnesium p.o. t.i.d. 12.Lopressor 100 mg p.o. b.i.d. 13.Potassium 20 mEq p.o. daily. 14.Aldactone 25 mg p.o. daily. 15.Thiamine 100 mg p.o. b.i.d. 16.Zestril 2.5 p.o. b.i.d. 17.Atrovent 2 puffs q.i.d. p.r.n. 18.Flomax 0.4 mg p.o. daily. 19.Prednisone taper. FOLLOWUP: Follow up with Dr. Virk in 1 week, Dr. Cedric Georges in [place] on December 09, 2017; Dr. Kiara Perry in one week. Prognosis guarded. Copy to Dr. Georges. MMDEBRAL / CELYN: [id number] /
== END 2017-12-02 18:13 | disposition home health service (06) | DRG 308 ==
LOC: EC 15:07 → 6SEL 17:00
PROVIDERS: ADMIT Hospitalist; ATTEND Hospitalist
DX: I48.2 Chronic atrial fibrillation (principal); J96.21 Acute and chronic respiratory failure with hypoxia; J44.1 Chronic obstructive pulmonary disease with (acute) exacerbation; I50.22 Chronic systolic (congestive) heart failure; I11.0 Hypertensive heart disease with heart failure; I42.6 Alcoholic cardiomyopathy; D53.9 Nutritional anemia, unspecified; E11.9 Type 2 diabetes mellitus without complications; Z99.81 Dependence on supplemental oxygen; I45.10 Unspecified right bundle-branch block; F10.20 Alcohol dependence, uncomplicated; E78.5 Hyperlipidemia, unspecified; M48.061 Spinal stenosis, lumbar region without neurogenic claudication; M19.91 Primary osteoarthritis, unspecified site; M47.812 Spondylosis without myelopathy or radiculopathy, cervical region; F17.210 Nicotine dependence, cigarettes, uncomplicated; Z71.6 Tobacco abuse counseling; Z79.82 Long term (current) use of aspirin; Z79.01 Long term (current) use of anticoagulants; Z79.51 Long term (current) use of inhaled steroids; Z79.4 Long term (current) use of insulin; Z79.899 Other long term (current) drug therapy; Z86.73 Personal history of transient ischemic attack (TIA), and cerebral infarction without residual deficits; Z87.01 Personal history of pneumonia (recurrent); Z87.81 Personal history of (healed) traumatic fracture; Z91.81 History of falling; Z87.442 Personal history of urinary calculi; Z98.42 Cataract extraction status, left eye; Z98.41 Cataract extraction status, right eye; Z89.421 Acquired absence of other right toe(s); Z88.1 Allergy status to other antibiotic agents; Z83.3 Family history of diabetes mellitus
CPT/HCPCS: 36415; 71046; 80048; 80053; 80061; 82550; 82553; 83036; 83735; 83880; 84484; 85025; 85610; 85730; 87040; 94640; 94760; 96374; 96375; 99285

== ENCOUNTER 2017-12-08 19:31 | Inpatient (IN) | payer MEDICARE ==
[2017-12-08] MEDS ORDERED: IPRATROPIUM 0.5 MG/2.5 ML NEBU INHALATION STA (19:38)
[2017-12-08] MEDS ORDERED: SODIUM CHLORIDE 0.9% 1,000 ML IV STA ×2 (19:38)
[2017-12-08] MEDS ORDERED: methylPREDNISolone SOD SUCCI 125 MG/2 ML VIAL IV STA (19:38)
[2017-12-08] MEDS ORDERED: SODIUM CHLORIDE 0.9% 500 ML IV STA (19:38)
[2017-12-08] MEDS ORDERED: ALBUTEROL NEBULIZED 2.5 MG/3 ML INHALATION STA (19:38)
[2017-12-08] MEDS ORDERED: DILTIAZEM DRIP BOLUS FROM BAG 1 MG SOLN IV ONE (19:48)
--- NOTE | 2017-12-08 19:55 | ED ---
General Adult HPI - General Chief complaint: Shortness of Breath Stated complaint: low oxygen Time Seen by Provider: 12/08/17 19:37 Source: patient, RN notes reviewed, old records reviewed Mode of arrival: ambulatory Limitations: no limitations - History of Present Illness Initial comments: This is a 72-year-old male to the ER for evaluation. Patient is very agitated upon history taking. Poor strain secondary to a difference. Patient's brought in for evaluation by EMS regarding significant shortness of breath. - Related Data Home Medications Medication Instructions Recorded Confirmed Albuterol Sulfate [Proair Hfa] 2 puff INHALATION RT-Q6H PRN 09/14/16 12/08/17 Rivaroxaban [Xarelto] 20 mg PO DAILY 03/28/17 12/08/17 Ipratropium-Albuterol Nebulize 3 ml INHALATION RT-QID 10/14/17 12/08/17 [Duoneb 0.5 mg-3 mg/3 ml Soln] Aspirin EC [Ecotrin Low Dose] 81 mg PO DAILY 10/24/17 12/08/17 Ipratropium [place] [Atrovent Hfa] 2 puff INHALATION RT-QID PRN 11/28/17 Tamsulosin [Flomax] 0.4 mg PO DAILY 11/28/17 12/08/17 predniSONE See Taper PO DIRECTED 12/08/17 12/08/17 Previous Rx's Medication Instructions Recorded Amiodarone [Cordarone] 400 mg PO DAILY #30 tab 10/21/17 Budesonide [Pulmicort] 1 mg INHALATION RT-BID #20 nebu 10/21/17 Formoterol Fumarate [Perforomist] 20 mcg INHALATION RT-BID #20 nebu 10/21/17 Pravastatin Sodium [Pravachol] 40 mg PO HS #30 tab 10/21/17 Furosemide [Lasix] 40 mg PO BID@0900,1600 tab 10/27/17 HYDROcodone/APAP 10-325MG [[place] 1 tab PO Q6H PRN #10 tab 10/27/17 10-325] Magnesium Oxide [Mag-Ox] 400 mg PO TID tab 10/27/17 Metoprolol Tartrate [Lopressor] 100 mg PO BID #90 tab 10/27/17 Potassium Chloride ER [K-Dur 20] 20 meq PO DAILY tab.er.prt 10/27/17 Spironolactone [Aldactone] 25 mg PO DAILY tab 10/27/17 Thiamine [Vitamin B-1] 100 mg PO BID@1200,1700 tab 10/27/17 Lisinopril [Zestril] 2.5 mg PO BID #60 tab 11/19/17 Allergies Allergy/AdvReac Type Severity Reaction Status Date / Time cephalexin monohydrate Allergy Rash/Hives Verified 12/08/17 19:56 [From Keflex] Review of Systems ROS Statement: Those systems with pertinent positive or pertinent negative responses have been documented in the HPI. ROS Other: All systems not noted in ROS Statement are negative. 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%, history cervical and lumbar spondylosis, carpal tunnel disease, paroxysmal atrial fibrillation, previous hospitalization for alcohol intoxication and altered mentation and previous history of fall with pulmonary contusion and traumatic right-sided fractures, history of delirium tremens, chronic atrial fibrillation, hypertension, hyperlipidemia, previous bouts of pneumonia, previous hospital physician for acute alcohol intoxication, kidney stones, cataracts, degenerative arthritis History of Any Multi-Drug Resistant Organisms: None Reported Past Surgical History: Back Surgery, Hernia Repair Additional Past Surgical History / Comment(s): right shoulder surgery, bilateral cataract surgery, umbilical hernia surgery, kidney stones removal, hammer toe surgery X3 with subsequent amputation of the second toe on right foot , pain injections through neurology, colonoscopy Past Anesthesia/Blood Transfusion Reactions: No Reported Reaction Past Psychological History: No Psychological Hx Reported Smoking Status: Current every day smoker Past Alcohol Use History: Daily Past Drug Use History: None Reported - Past Family History Father Family Medical History: Diabetes Mellitus Mother History Unknown: Yes Additional Family Medical History / Comment(s): 2001 General Exam Limitations: no limitations General appearance: alert, in no apparent distress, anxious Head exam: Present: atraumatic, normocephalic, normal inspection Eye exam: Present: normal appearance, PERRL, EOMI. Absent: scleral icterus, conjunctival injection, periorbital swelling ENT exam: Present: normal exam, mucous membranes moist Neck exam: Present: normal inspection. Absent: tenderness, meningismus, lymphadenopathy Respiratory exam: Present: respiratory distress, wheezes, accessory muscle use, decreased breath sounds, prolonged expiratory. Absent: rales, rhonchi, stridor Cardiovascular Exam: Present: regular rate, normal rhythm, normal heart sounds. Absent: systolic murmur, diastolic murmur, rubs, gallop, clicks GI/Abdominal exam: Present: soft, normal bowel sounds. Absent: distended, tenderness, guarding, rebound, rigid Extremities exam: Present: normal inspection, full ROM, normal capillary refill. Absent: tenderness, pedal edema, joint swelling, calf tenderness Back exam: Present: normal inspection Neurological exam: Present: alert, oriented X3, CN II-XII intact Psychiatric exam: Present: normal affect, normal mood Skin exam: Present: warm, dry, intact, normal color. Absent: rash Course Vital Signs 12/08/17 12/08/17 12/08/17 19:32 19:44 19:52 Temperature 99.3 F 99.7 F H Pulse Rate 69 152 H 150 H Respiratory 30 H 30 H Rate Blood Pressure 87/43 O2 Sat by Pulse 96 96 Oximetry 12/08/17 12/08/17 12/08/17 19:59 20:06 20:14 Temperature Pulse Rate 155 H 145 H Respiratory Rate Blood Pressure 126/71 O2 Sat by Pulse Oximetry 12/08/17 12/08/17 12/08/17 20:23 20:37 21:32 Temperature Pulse Rate 112 H 125 H 121 H Respiratory 24 18 Rate Blood Pressure 116/69 100/51 O2 Sat by Pulse 96 95 Oximetry 12/08/17 22:12 Temperature 99.3 F Pulse Rate 122 H Respiratory 20 Rate Blood Pressure 105/61 O2 Sat by Pulse 95 Oximetry - Reevaluation(s) Reevaluation #1: Patient showing significant improvement after breathing treatment here in the emergency room EKG Findings - EKG Comments: EKG Findings:: EKG shows A. fib with RVR rate 160, QRS 126, QTc 509 Medical Decision Making - Medical Decision Making 72 male the ER for evaluation of severe QRS for distress. Patient will be admitted for continued evaluation cardiopulmonary event monitoring - Lab Data Result diagrams: 12/08/17 19:49 12/08/17 19:49 Lab Results 12/08/17 12/08/17 12/08/17 Range/Units 19:49 19:49 19:49 WBC 15.1 H (3.8-10.6) k/uL RBC 4.11 L (4.30-5.90) m/uL Hgb 10.8 L (13.0-17.5) gm/dL Hct 35.8 L (39.0-53.0) % MCV 87.0 (80.0-100.0) fL MCH 26.2 (25.0-35.0) pg MCHC 30.1 L (31.0-37.0) g/dL RDW 17.6 H (11.5-15.5) % Plt Count 258 (150-450) k/uL Neutrophils % 79 % Lymphocytes % 14 % Monocytes % 6 % Eosinophils % 0 % Basophils % 0 % Neutrophils # 11.9 H (1.3-7.7) k/uL Lymphocytes # 2.1 (1.0-4.8) k/uL Monocytes # 0.9 (0-1.0) k/uL Eosinophils # 0.1 (0-0.7) k/uL Basophils # 0.0 (0-0.2) k/uL Hypochromasia Marked Anisocytosis Slight PT (9.0-12.0) sec INR (<1.2) APTT (22.0-30.0) sec Sodium 135 L (137-145) mmol/L Potassium 4.4 (3.5-5.1) mmol/L Chloride 97 L (98-107) mmol/L Carbon Dioxide 30 (22-30) mmol/L Anion Gap 8 mmol/L BUN 38 H (9-20) mg/dL Creatinine 1.30 H (0.66-1.25) mg/dL Est GFR (CKD-EPI)AfAm 64 (>60 ml/min/1.73 sqM) Est GFR (CKD-EPI)NonAf 55 (>60 ml/min/1.73 sqM) Glucose 97 (74-99) mg/dL Calcium 8.4 (8.4-10.2) mg/dL Magnesium 2.1 (1.6-2.3) mg/dL Total Bilirubin 0.6 (0.2-1.3) mg/dL AST 32 (17-59) U/L ALT 58 (21-72) U/L Alkaline Phosphatase 75 (38-126) U/L Total Creatine Kinase <20 L (55-170) U/L CK-MB (CK-2) 0.5 (0.0-2.4) ng/mL CK-MB (CK-2) Rel Index Troponin I <0.012 (0.000-0.034) ng/mL NT-Pro-B Natriuret Pep pg/mL Total Protein 5.8 L (6.3-8.2) g/dL Albumin 3.3 L (3.5-5.0) g/dL Triglycerides (<150) mg/dL Cholesterol (<200) mg/dL LDL Cholesterol, Calc (0-99) mg/dL HDL Cholesterol (40-60) mg/dL 12/08/17 12/08/17 12/08/17 Range/Units 19:49 19:49 19:49 WBC (3.8-10.6) k/uL RBC (4.30-5.90) m/uL Hgb (13.0-17.5) gm/dL Hct (39.0-53.0) % MCV (80.0-100.0) fL MCH (25.0-35.0) pg MCHC (31.0-37.0) g/dL RDW (11.5-15.5) % Plt Count (150-450) k/uL Neutrophils % % Lymphocytes % % Monocytes % % Eosinophils % % Basophils % % Neutrophils # (1.3-7.7) k/uL Lymphocytes # (1.0-4.8) k/uL Monocytes # (0-1.0) k/uL Eosinophils # (0-0.7) k/uL Basophils # (0-0.2) k/uL Hypochromasia Anisocytosis PT 10.3 (9.0-12.0) sec INR 1.1 (<1.2) APTT 20.4 L (22.0-30.0) sec Sodium (137-145) mmol/L Potassium (3.5-5.1) mmol/L Chloride (98-107) mmol/L Carbon Dioxide (22-30) mmol/L Anion Gap mmol/L BUN (9-20) mg/dL Creatinine (0.66-1.25) mg/dL Est GFR (CKD-EPI)AfAm (>60 ml/min/1.73 sqM) Est GFR (CKD-EPI)NonAf (>60 ml/min/1.73 sqM) Glucose (74-99) mg/dL Calcium (8.4-10.2) mg/dL Magnesium (1.6-2.3) mg/dL Total Bilirubin (0.2-1.3) mg/dL AST (17-59) U/L ALT (21-72) U/L Alkaline Phosphatase (38-126) U/L Total Creatine Kinase (55-170) U/L CK-MB (CK-2) (0.0-2.4) ng/mL CK-MB (CK-2) Rel Index Troponin I (0.000-0.034) ng/mL NT-Pro-B Natriuret Pep 527 pg/mL Total Protein (6.3-8.2) g/dL Albumin (3.5-5.0) g/dL Triglycerides 103 (<150) mg/dL Cholesterol 110 (<200) mg/dL LDL Cholesterol, Calc 51 (0-99) mg/dL HDL Cholesterol 38 L (40-60) mg/dL - Radiology Data Radiology results: report reviewed (Chest x-rays negative), image reviewed Disposition Clinical Impression: Acute exacerbation of chronic obstructive airways disease, Congestive heart failure, Atrial fibrillation with RVR Disposition: ADMITTED IP TO THIS HOSP Condition: Fair Is patient prescribed a controlled substance at d/c from ED?: No
[2017-12-08 20:06] LABS: Albumin 3.3 g/dL (3.5-5.0); Calcium 8.4 mg/dL (8.4-10.2); Magnesium 2.1 mg/dL (1.6-2.3); Potassium 4.4 mmol/L (3.5-5.1); Total Bilirubin 0.6 mg/dL (0.2-1.3); Total Protein 5.8 g/dL (6.3-8.2)
[2017-12-08] MEDS: DILTIAZEM 50 MG in SODIUM CHLORIDE 0.9% 40 ML IV SCH (20:08)
[2017-12-08 20:12] LABS: Creatine Kinase <20 U/L (55-170)
[2017-12-08 20:13] LABS: Anisocytosis Slight; Basophils % (A) 0 %; Eosinophils # (A) 0.1 k/uL (0-0.7); Eosinophils % (A) 0 %; HCT 35.8 % (39.0-53.0); HGB 10.8 gm/dL (13.0-17.5); Hypochromasia Marked; Lymphocytes # (A) 2.1 k/uL (1.0-4.8); Lymphocytes % (A) 14 %; MCH 26.2 pg (25.0-35.0); MCHC 30.1 g/dL (31.0-37.0); Mean Platelet Volume 6.8; Monocytes # (A) 0.9 k/uL (0-1.0); Monocytes % (A) 6 %; Neutrophils # (A) 11.9 k/uL (1.3-7.7); Neutrophils % (A) 79 %; Platelet Count 258 k/uL (150-450); RBC 4.11 m/uL (4.30-5.90); RDW 17.6 % (11.5-15.5); WBC 15.1 k/uL (3.8-10.6)
[2017-12-08 20:25] LABS: Creatine Kinase MB 0.5 ng/mL (0.0-2.4); Troponin I <0.012 ng/mL (0.000-0.034)
[2017-12-08 20:30] LABS: INR 1.1 (<1.2); Prothrombin Time 10.3 sec (9.0-12.0)
[2017-12-08 20:38] LABS: Partial Thromboplastin Time 20.4 sec (22.0-30.0)
--- NOTE | 2017-12-08 20:45 | XR ---
EXAMINATION TYPE: XR chest 1V portable DATE OF EXAM: 12/08/2017 COMPARISON: 11/28/2017 HISTORY: Cough and congestion TECHNIQUE: Single frontal view of the chest is obtained. FINDINGS: There is no heart failure nor confluent pneumonic infiltrate. There are chest leads. Costo phrenic angles are clear. IMPRESSION: No active cardiopulmonary disease. No change.
[2017-12-08] MEDS ORDERED: NITROGLYCERIN SL TABS 0.4 MG TAB SUBLINGUAL PRN (21:40)
[2017-12-08] MEDS ORDERED: IPRATROPIUM-ALBUTEROL 3 ML NEB INHALATION STA (21:40)
[2017-12-08] MEDS ORDERED: IPRATROPIUM-ALBUTEROL 3 ML NEB INHALATION PRN (22:20)
[2017-12-09 02:46] LABS: Creatine Kinase MB 0.5 ng/mL (0.0-2.4)
[2017-12-09 03:26] LABS: Cholesterol 110 mg/dL (<200); HDL Cholesterol 38 mg/dL (40-60); LDL Cholesterol,Calculated 51 mg/dL (0-99); Triglycerides 103 mg/dL (<150)
[2017-12-09 06:02] VITALS: BMI 19.0
[2017-12-09] MEDS: SODIUM CHLORIDE 0.9% 1,000 ML IV SCH ×3 (06:34→21:19)
[2017-12-09] MEDS: methylPREDNISolone SOD SUCCI 125 MG/2 ML VIAL IV SCH ×5 (06:35→23:04)
[2017-12-09] MEDS: DILTIAZEM 50 MG in SODIUM CHLORIDE 0.9% 40 ML IV SCH (06:53)
[2017-12-09] MEDS: IPRATROPIUM-ALBUTEROL 3 ML NEB INHALATION SCH ×4 (07:54→20:34)
[2017-12-09 08:34] LABS: Creatine Kinase <20 U/L (55-170)
[2017-12-09 08:46] LABS: Creatine Kinase MB 0.8 ng/mL (0.0-2.4); Troponin I <0.012 ng/mL (0.000-0.034)
--- NOTE | 2017-12-09 10:03 | P.CRDCN ---
History of Present Illness Consult date: 12/09/17 Requesting physician: Theresa Reynoso Consult reason: atrial fibrillation Chief complaint: Shortness of breath History of present illness: This is a 72-year-old gentleman with known history of chronic alcoholism, paroxysmal atrial fibrillation, COPD, hyperlipidemia, caffeine dependence, hypertension, diabetes, nonischemic cardiomyopathy, who was recently in the hospital earlier this month . He presents to the hospital on this occasion again with severe shortness of breath. Unfortunately, the patient continues to smoke, and continues to drink alcohol. He is quite frustrated that he has to be readmitted because of his rapid heart beating, however he also refuses to make any lifestyle changes. His EKG on admission here showed atrial fibrillation with a rapid ventricular response, this morning he continues to be in atrial fibrillation, his heart rate this morning is in the 90 range. Chest x-ray on admission did not reveal any acute changes. Blood pressure on arrival here 90/40 with a heart rate in the 60s, 96% on room air. White blood cell count 15.1, hemoglobin 10.8, platelet count 258. Sodium 135, potassium 4.4, BUN 38, creatinine 1.3. Troponins are negative 3. BNP level 527. Most recent echocardiogram with Doppler study was performed in September which revealed severely impaired left ventricular systolic function ejection fraction less than 20%, mild at the time of my examination this morning , she denies any difficulty breathing, no palpitations. He is just extremely depressed and frustrated that he is back in the hospital. 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%, history cervical and lumbar spondylosis, carpal tunnel disease, paroxysmal atrial fibrillation, previous hospitalization for alcohol intoxication and altered mentation and previous history of fall with pulmonary contusion and traumatic right-sided fractures, history of delirium tremens, chronic atrial fibrillation, hypertension, hyperlipidemia, previous bouts of pneumonia, previous hospital physician for acute alcohol intoxication, kidney stones, cataracts, degenerative arthritis History of Any Multi-Drug Resistant Organisms: None Reported Past Surgical History: Back Surgery, Hernia Repair Additional Past Surgical History / Comment(s): right shoulder surgery, bilateral cataract surgery, umbilical hernia surgery, kidney stones removal, hammer toe surgery X3 with subsequent amputation of the second toe on right foot , pain injections through neurology, colonoscopy Past Anesthesia/Blood Transfusion Reactions: No Reported Reaction Past Psychological History: No Psychological Hx Reported Additional Psychological History / Comment(s): Lives with friend, Bekah Arriaga. she lives in the upstairs of his home. Smoking Status: Current every day smoker Past Alcohol Use History: Daily, Heavy Additional Past Alcohol Use History / Comment(s): Smokes 1 PPD, USUALLY DRINKS "at least" A FIFTH OF VODKA BETWEEN 9PM-MIDNIGHT DAILY Past Drug Use History: None Reported - Past Family History Father Family Medical History: Diabetes Mellitus Mother History Unknown: Yes Additional Family Medical History / Comment(s): 2001 Medications and Allergies Home Medications Medication Instructions Recorded Confirmed Type Albuterol Sulfate [Proair Hfa] 2 puff INHALATION RT-Q6H PRN 09/14/16 12/08/17 History Rivaroxaban [Xarelto] 20 mg PO DAILY 03/28/17 12/08/17 History Ipratropium-Albuterol Nebulize 3 ml INHALATION RT-QID 10/14/17 12/08/17 History [Duoneb 0.5 mg-3 mg/3 ml Soln] Amiodarone [Cordarone] 400 mg PO DAILY #30 tab 10/21/17 12/08/17 Rx Budesonide [Pulmicort] 1 mg INHALATION RT-BID #20 nebu 10/21/17 12/08/17 Rx Formoterol Fumarate [Perforomist] 20 mcg INHALATION RT-BID #20 nebu 10/21/17 Rx Pravastatin Sodium [Pravachol] 40 mg PO HS #30 tab 10/21/17 12/08/17 Rx Aspirin EC [Ecotrin Low Dose] 81 mg PO DAILY 10/24/17 12/08/17 History Furosemide [Lasix] 40 mg PO BID@0900,1600 tab 10/27/17 12/08/17 Rx HYDROcodone/APAP 10-325MG [[place] 1 tab PO Q6H PRN #10 tab 10/27/17 12/08/17 Rx 10-325] Magnesium Oxide [Mag-Ox] 400 mg PO TID tab 10/27/17 12/08/17 Rx Metoprolol Tartrate [Lopressor] 100 mg PO BID #90 tab 10/27/17 12/08/17 Rx Potassium Chloride ER [K-Dur 20] 20 meq PO DAILY tab.er.prt 10/27/17 12/08/17 Rx Spironolactone [Aldactone] 25 mg PO DAILY tab 10/27/17 12/08/17 Rx Thiamine [Vitamin B-1] 100 mg PO BID@1200,1700 tab 10/27/17 12/08/17 Rx Lisinopril [Zestril] 2.5 mg PO BID #60 tab 11/19/17 12/08/17 Rx Ipratropium [place] [Atrovent Hfa] 2 puff INHALATION RT-QID PRN 11/28/17 History Tamsulosin [Flomax] 0.4 mg PO DAILY 11/28/17 12/08/17 History predniSONE See Taper PO DIRECTED 12/08/17 12/08/17 History Allergies Allergy/AdvReac Type Severity Reaction Status Date / Time cephalexin monohydrate Allergy Rash/Hives Verified 12/08/17 19:56 [From Keflex] Physical Exam Vitals: Vital Signs Temp Pulse Pulse Resp BP BP Pulse Ox 12/09/17 08:13 112 H 12/09/17 08:04 110 H 12/09/17 04:10 98.2 F 96 20 89/51 96 12/09/17 03:10 95 20 12/09/17 00:08 111 H 12/08/17 23:50 112 H 12/08/17 22:45 97.9 F 96 20 113/61 98 12/08/17 22:12 99.3 F 122 H 20 105/61 95 12/08/17 21:32 121 H 18 100/51 95 12/08/17 20:37 125 H 24 116/69 96 12/08/17 20:23 112 H 12/08/17 20:14 145 H 12/08/17 20:06 155 H 12/08/17 19:59 126/71 12/08/17 19:52 99.7 F H 150 H 30 H 96 12/08/17 19:44 152 H 12/08/17 19:32 99.3 F 69 30 H 87/43 96 Intake and Output 12/08/17 12/09/17 12/09/17 22:59 06:59 14:59 Intake Total 784.833 Output Total 550 Balance 234.833 Intake: Intake, IV Titration 784.833 Amount Diltiazem 50 mg In Sodium 49.833 Chloride 0.9% 40 ml @ 5 MG/HR 5 mls/hr IV .Q10H LUKASZ Rx#:[id number] Sodium Chloride 0.9% 1, 700 000 ml @ 100 mls/hr IV . Q10H LUKASZ Rx#:[id number] Sodium Chloride 0.9% 1, 35 000 ml @ 100 mls/hr IV . Q10H STA Rx#:[id number] Output: Urine 550 Other: Voiding Method Urinal Urinal # Voids 2 Weight 63.6 kg 63.6 kg GENERAL EXAM: Alert, 72-year-old white male comfortable in no apparent distress. HEAD: Normocephalic/atraumatic. EYES: Normal reaction of pupils, equal size. Conjunctiva pink, sclera white. NOSE: Clear with pink turbinates. THROAT: No erythema or exudates. NECK: No masses, no JVD, no thyroid enlargement, no adenopathy. CHEST: No chest wall deformity. Symmetrical expansion. LUNGS: Scattered diffuse rhonchi, and wheezes bilaterally, congestive cough with production of white sputum CVS: Regular rate and rhythm, normal S1 and S2, no gallops, no murmurs, no rubs ABDOMEN: Soft, nontender. No hepatosplenomegaly, normal bowel sounds, no guarding or rigidity. EXTREMITIES: No clubbing, no edema, no cyanosis, 2+ pulses and upper and lower extremities. MUSCULOSKELETAL: Muscle strength and tone normal. SPINE: No scoliosis or deformity SKIN: No rashes CENTRAL NERVOUS SYSTEM: Alert and oriented -3. No focal deficits, tone is normal in all 4 extremities. PSYCHIATRIC: Alert and oriented -3. Appropriate affect. Intact judgment and insight. Results 12/08/17 19:49 12/08/17 19:49 Cardiac Enzymes 12/08/17 12/08/17 12/09/17 Range/Units 19:49 19:49 01:30 AST 32 (17-59) U/L CK-MB (CK-2) 0.5 0.5 (0.0-2.4) ng/mL Troponin I <0.012 (0.000-0.034) ng/mL 12/09/17 Range/Units 07:34 AST (17-59) U/L CK-MB (CK-2) 0.8 (0.0-2.4) ng/mL Troponin I <0.012 (0.000-0.034) ng/mL Coagulation 12/08/17 Range/Units 19:49 PT 10.3 (9.0-12.0) sec APTT 20.4 L (22.0-30.0) sec Lipids 12/08/17 Range/Units 19:49 Triglycerides 103 (<150) mg/dL Cholesterol 110 (<200) mg/dL HDL Cholesterol 38 L (40-60) mg/dL CBC 12/08/17 Range/Units 19:49 WBC 15.1 H (3.8-10.6) k/uL RBC 4.11 L (4.30-5.90) m/uL Hgb 10.8 L (13.0-17.5) gm/dL Hct 35.8 L (39.0-53.0) % Plt Count 258 (150-450) k/uL Comprehensive Metabolic Panel 12/08/17 Range/Units 19:49 Sodium 135 L (137-145) mmol/L Potassium 4.4 (3.5-5.1) mmol/L Chloride 97 L (98-107) mmol/L Carbon Dioxide 30 (22-30) mmol/L BUN 38 H (9-20) mg/dL Creatinine 1.30 H (0.66-1.25) mg/dL Glucose 97 (74-99) mg/dL Calcium 8.4 (8.4-10.2) mg/dL AST 32 (17-59) U/L ALT 58 (21-72) U/L Alkaline Phosphatase 75 (38-126) U/L Total Protein 5.8 L (6.3-8.2) g/dL Albumin 3.3 L (3.5-5.0) g/dL Current Medications Generic Name Dose Route Start Last Admin Trade Name Freq PRN Reason Stop Dose Admin Albuterol/Ipratropium 3 ml 12/09/17 08:00 12/09/17 07:54 Duoneb 0.5 Mg-3 Mg/3 Ml Soln INHALATION 3 ml RT-QID LUKASZ Administration Albuterol/Ipratropium 3 ml 12/08/17 22:20 Duoneb 0.5 Mg-3 Mg/3 Ml Soln INHALATION RT-Q4H PRN Shortness Of Breath Or Wheezing Aspirin 325 mg 12/09/17 09:00 Aspirin PO DAILY LUKSAZ Diltiazem HCl 50 mg/ Sodium 50 mls @ 5 mls/hr 12/08/17 20:00 12/09/17 06:53 Chloride IV 5 mg/hr .Q10H LUKASZ 5 mls/hr Administration 5 MG/HR Sodium Chloride 1,000 mls @ 100 mls/hr 12/08/17 21:45 12/09/17 06:34 Saline 0.9% IV Not Given .Q10H LUKASZ Insulin Aspart 0 unit 12/09/17 07:30 Novolog SQ ACHS LUKASZ Protocol Methylprednisolone Sodium Succinate 60 mg 12/09/17 00:00 12/09/17 06:52 Solu-Medrol IV 60 mg Q6HR LUKASZ Administration Nitroglycerin 0.4 mg 12/08/17 21:40 Nitrostat SUBLINGUAL Q5M PRN Chest Pain Intake and Output 12/08/17 12/09/17 12/09/17 22:59 06:59 14:59 Intake Total 784.833 Output Total 550 Balance 234.833 Intake: Intake, IV Titration 784.833 Amount Diltiazem 50 mg In Sodium 49.833 Chloride 0.9% 40 ml @ 5 MG/HR 5 mls/hr IV .Q10H LUKASZ Rx#:[id number] Sodium Chloride 0.9% 1, 700 000 ml @ 100 mls/hr IV . Q10H LUKASZ Rx#:[id number] Sodium Chloride 0.9% 1, 35 000 ml @ 100 mls/hr IV . Q10H STA Rx#:[id number] Output: Urine 550 Other: Voiding Method Urinal Urinal # Voids 2 Weight 63.6 kg 63.6 kg 12/08/17 19:49 12/08/17 19:49 EKG Interpretations (text) Initial EKG showed atrial fibrillation with a rapid ventricular response subsequent EKG shows atrial fibrillation with a controlled ventricular response Assessment and Plan Plan: Assessment and Plan #1 symptoms of shortness of breath or palpitations, likely secondary to atrial fibrillation. Initial EKG shows A. fib with RVR. #2 known history of paroxysmal atrial fibrillation, on Xarelto at home for anticoagulation. Patient was also on amiodarone and Lopressor which has not been reordered here. #3 COPD #4 nicotine dependence #5 chronic EtOH use #6 nonischemic cardiomyopathy with documented ejection fraction of less than 20 % in September #7 hypertension history #8 hyperlipidemia #9 diabetes Plan We will put the patient back on his anticoagulation in the form of Xarelto. Cardizem drip was ordered, apparently was discontinued by the nurse on nights because of a low blood pressure, we will resume patient's Aldactone, statin, metoprolol at a lower dose, amiodarone, we will hold off on the UMA inhibitor at this time because of hypotension. Hold Lasix for 24 hours check lytes BUN and creatinine in the morning. We will also discontinue the IV Cardizem as the patient has documented ejection fraction of less than 20%. Patient is also receiving IV fluids at 100 mL per hour and has received 3 L of fluid bolus, we' ll decrease the IV fluids to KVO as his ejection fraction is less than 20%. Discontinue Flomax Further recommendations to follow DNP note has been reviewed, I agree with a documented findings and plan of care. Patient was seen and examined.
[2017-12-09] MEDS: INSULIN ASPART 100 UNIT/ML 1 ML 10 ML VIAL SQ SCH ×4 (10:54→21:07)
[2017-12-09] MEDS ORDERED: METOPROLOL TARTRATE 50 MG TAB PO STA (10:54)
[2017-12-09] MEDS ORDERED: AMIODARONE 200 MG TAB PO STA (11:03)
[2017-12-09] MEDS ORDERED: SPIRONOLACTONE 25 MG TAB PO STA (11:03)
[2017-12-09] MEDS ORDERED: RIVAROXABAN 15 MG TAB PO STA (11:03)
[2017-12-09] MEDS: RIVAROXABAN 15 MG TAB PO SCH (11:31)
[2017-12-09] MEDS: AMIODARONE 200 MG TAB PO SCH (11:31)
[2017-12-09] MEDS: ASPIRIN 325 MG TAB PO SCH (11:31)
[2017-12-09] MEDS: METOPROLOL TARTRATE 50 MG TAB PO SCH ×2 (11:31→19:57)
[2017-12-09] MEDS: SPIRONOLACTONE 25 MG TAB PO SCH (11:32)
[2017-12-09 12:28] LABS: Glucose,Whole Blood 274 mg/dL (75-99)
--- NOTE | 2017-12-09 13:37 | P.CNPUL ---
History of Present Illness Consult date: 12/09/17 Requesting physician: Theresa Reynoso Reason for consult: dyspnea, cough, COPD Chief complaint: Shortness of breath, COPD exacerbation History of present illness: Mr. Hills is a 72-year-old male patient, presented to emergency department on 12/08/2017 at 1900 for evaluation of severe shortness of breath, A. fib RVR. Patient was recently hospitalized for the same. Patient has history of advanced COPD with chronic hypoxic respiratory failure. Unfortunately patient has poor medical compliance, he continues to smoke, and was previously known for heavy alcohol abuse. He denies ongoing alcohol abuse. History of chronic atrial fibrillation, on Xarelto, history of alcoholic cardiomyopathy, congestive heart failure, hypertension, hyperlipidemia, CVA involving the temporal lobe, chronic anemia, cervical and lumbar stenosis, previous episodes of pneumonia. He is to see Dr. Virk in the pulmonary office for his COPD, however has not been able to see him in follow-up due to lack of transportation. Patient has had multiple and recurrent hospitalizations for respiratory complications related to COPD, and atrial fibrillation with RVR. Chest x-ray showed no active cardiopulmonary process. EKG showed atrial fibrillation with a rate of 160 BPM, patient was started on Cardizem drip. Continues on his home dose Xarelto. WBC is 15.1, hemoglobin is 10.8, sodium is 135, chloride is 97, BUN is 38, creatinine is 1.3, troponins were negative 3, proBNP was within normal limits at 527. Cardiology is following, patient is on oral amiodarone, he continues on nebulized bronchodilators, and IV Solu-Medrol, he is feeling better on today's exam. Review of Systems All systems: negative Constitutional: Denies chills, Denies fever Eyes: denies blurred vision, denies pain Ears, nose, mouth and throat: Denies headache, Denies sore throat Cardiovascular: Denies chest pain, Denies shortness of breath Respiratory: Reports dyspnea, Reports home oxygen, Reports respiratory infections, Reports wheezing, Denies cough Gastrointestinal: Denies abdominal pain, Denies diarrhea, Denies nausea, Denies vomiting Musculoskeletal: Denies myalgias Integumentary: Denies pruritus, Denies rash Neurological: Denies numbness, Denies weakness Psychiatric: Denies anxiety, Denies depression Endocrine: Denies fatigue, Denies weight change 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%, history cervical and lumbar spondylosis, carpal tunnel disease, paroxysmal atrial fibrillation, previous hospitalization for alcohol intoxication and altered mentation and previous history of fall with pulmonary contusion and traumatic right-sided fractures, history of delirium tremens, chronic atrial fibrillation, hypertension, hyperlipidemia, previous bouts of pneumonia, previous hospital physician for acute alcohol intoxication, kidney stones, cataracts, degenerative arthritis History of Any Multi-Drug Resistant Organisms: None Reported Past Surgical History: Back Surgery, Hernia Repair Additional Past Surgical History / Comment(s): right shoulder surgery, bilateral cataract surgery, umbilical hernia surgery, kidney stones removal, hammer toe surgery X3 with subsequent amputation of the second toe on right foot , pain injections through neurology, colonoscopy Past Anesthesia/Blood Transfusion Reactions: No Reported Reaction Past Psychological History: No Psychological Hx Reported Additional Psychological History / Comment(s): Lives with friend, Bekah Arriaga. she lives in the upstairs of his home. Smoking Status: Current every day smoker Past Alcohol Use History: Daily, Heavy Additional Past Alcohol Use History / Comment(s): Smokes 1 PPD, USUALLY DRINKS "at least" A FIFTH OF VODKA BETWEEN 9PM-MIDNIGHT DAILY Past Drug Use History: None Reported - Past Family History Father Family Medical History: Diabetes Mellitus Mother History Unknown: Yes Additional Family Medical History / Comment(s): 2001 Medications and Allergies Home Medications Medication Instructions Recorded Confirmed Type Albuterol Sulfate [Proair Hfa] 2 puff INHALATION RT-Q6H PRN 09/14/16 12/08/17 History Rivaroxaban [Xarelto] 20 mg PO DAILY 03/28/17 12/08/17 History Ipratropium-Albuterol Nebulize 3 ml INHALATION RT-QID 10/14/17 12/08/17 History [Duoneb 0.5 mg-3 mg/3 ml Soln] Amiodarone [Cordarone] 400 mg PO DAILY #30 tab 10/21/17 12/08/17 Rx Budesonide [Pulmicort] 1 mg INHALATION RT-BID #20 nebu 10/21/17 12/08/17 Rx Formoterol Fumarate [Perforomist] 20 mcg INHALATION RT-BID #20 nebu 10/21/17 Rx Pravastatin Sodium [Pravachol] 40 mg PO HS #30 tab 10/21/17 12/08/17 Rx Aspirin EC [Ecotrin Low Dose] 81 mg PO DAILY 10/24/17 12/08/17 History Furosemide [Lasix] 40 mg PO BID@0900,1600 tab 10/27/17 12/08/17 Rx HYDROcodone/APAP 10-325MG [[place] 1 tab PO Q6H PRN #10 tab 10/27/17 12/08/17 Rx 10-325] Magnesium Oxide [Mag-Ox] 400 mg PO TID tab 10/27/17 12/08/17 Rx Metoprolol Tartrate [Lopressor] 100 mg PO BID #90 tab 10/27/17 12/08/17 Rx Potassium Chloride ER [K-Dur 20] 20 meq PO DAILY tab.er.prt 10/27/17 12/08/17 Rx Spironolactone [Aldactone] 25 mg PO DAILY tab 10/27/17 12/08/17 Rx Thiamine [Vitamin B-1] 100 mg PO BID@1200,1700 tab 10/27/17 12/08/17 Rx Lisinopril [Zestril] 2.5 mg PO BID #60 tab 11/19/17 12/08/17 Rx Ipratropium [place] [Atrovent Hfa] 2 puff INHALATION RT-QID PRN 11/28/17 History Tamsulosin [Flomax] 0.4 mg PO DAILY 11/28/17 12/08/17 History predniSONE See Taper PO DIRECTED 12/08/17 12/08/17 History Allergies Allergy/AdvReac Type Severity Reaction Status Date / Time cephalexin monohydrate Allergy Rash/Hives Verified 12/08/17 19:56 [From Keflex] Physical Exam Vitals: Vital Signs Temp Pulse Pulse Resp BP BP Pulse Ox 12/09/17 12:00 87 18 108/65 100 12/09/17 11:28 110 H 12/09/17 11:16 110 H 12/09/17 08:13 112 H 12/09/17 08:04 110 H 12/09/17 08:00 98.3 F 65 18 109/61 100 12/09/17 04:10 98.2 F 96 20 89/51 96 12/09/17 03:10 95 20 12/09/17 00:08 111 H 12/08/17 23:50 112 H 12/08/17 22:45 97.9 F 96 20 113/61 98 12/08/17 22:12 99.3 F 122 H 20 105/61 95 12/08/17 21:32 121 H 18 100/51 95 12/08/17 20:37 125 H 24 116/69 96 12/08/17 20:23 112 H 12/08/17 20:14 145 H 12/08/17 20:06 155 H 12/08/17 19:59 126/71 12/08/17 19:52 99.7 F H 150 H 30 H 96 12/08/17 19:44 152 H 12/08/17 19:32 99.3 F 69 30 H 87/43 96 Intake and Output 12/08/17 12/09/17 12/09/17 22:59 06:59 14:59 Intake Total 784.833 200 Output Total 550 Balance 234.833 200 Intake: Intake, IV Titration 784.833 Amount Diltiazem 50 mg In Sodium 49.833 Chloride 0.9% 40 ml @ 5 MG/HR 5 mls/hr IV .Q10H LUKASZ Rx#:[id number] Sodium Chloride 0.9% 1, 700 000 ml @ 100 mls/hr IV . Q10H LUKASZ Rx#:[id number] Sodium Chloride 0.9% 1, 35 000 ml @ 100 mls/hr IV . Q10H STA Rx#:[id number] Oral 200 Output: Urine 550 Other: Voiding Method Urinal Urinal Urinal # Voids 2 Weight 63.6 kg 63.6 kg GENERAL EXAM: Alert, irritable 72-year-old white male, comfortable in no apparent distress. HEAD: Normocephalic/atraumatic. EYES: Normal reaction of pupils, equal size. Conjunctiva pink, sclera white. NOSE: Clear with pink turbinates. THROAT: No erythema or exudates. NECK: No masses, no JVD, no thyroid enlargement, no adenopathy. CHEST: No chest wall deformity. Symmetrical expansion. LUNGS: Diminished, coarse, with scattered rhonchi, and diffuse wheezes CVS: Irregular rate and rhythm, normal S1 and S2, no gallops, no murmurs, no rubs ABDOMEN: Soft, nontender. No hepatosplenomegaly, normal bowel sounds, no guarding or rigidity. EXTREMITIES: No clubbing, no edema, no cyanosis, 2+ pulses and upper and lower extremities. MUSCULOSKELETAL: Muscle strength and tone normal. SPINE: No scoliosis or deformity SKIN: No rashes CENTRAL NERVOUS SYSTEM: Alert and oriented -3. No focal deficits, tone is normal in all 4 extremities. PSYCHIATRIC: Alert and oriented -3. Appropriate affect. Intact judgment and insight. Results - Laboratory Findings CBC and BMP: 12/08/17 19:49 12/08/17 19:49 PT/INR, D-dimer PT 10.3 sec (9.0-12.0) 12/08/17 19:49 INR 1.1 (<1.2) 12/08/17 19:49 Abnormal lab findings: Abnormal Labs 12/08/17 12/08/17 12/08/17 19:49 19:49 19:49 WBC 15.1 H RBC 4.11 L Hgb 10.8 L Hct 35.8 L MCHC 30.1 L RDW 17.6 H Neutrophils # 11.9 H APTT Sodium 135 L Chloride 97 L BUN 38 H Creatinine 1.30 H POC Glucose (mg/dL) Total Creatine Kinase <20 L Total Protein 5.8 L Albumin 3.3 L HDL Cholesterol 12/08/17 12/08/17 12/09/17 19:49 19:49 01:30 WBC RBC Hgb Hct MCHC RDW Neutrophils # APTT 20.4 L Sodium Chloride BUN Creatinine POC Glucose (mg/dL) Total Creatine Kinase 23 L Total Protein Albumin HDL Cholesterol 38 L 12/09/17 12/09/17 07:34 12:14 WBC RBC Hgb Hct MCHC RDW Neutrophils # APTT Sodium Chloride BUN Creatinine POC Glucose (mg/dL) 274 H Total Creatine Kinase <20 L Total Protein Albumin HDL Cholesterol - Diagnostic Findings Chest x-ray: report reviewed, image reviewed Additional studies: EKG reviewed Assessment and Plan Plan: Assessment: #1. Acute exacerbation of chronic obstructive pulmonary disease #2. Atrial fibrillation with RVR #3. Advanced COPD, with chronic hypoxic respiratory failure #4. Acute kidney injury, possibly related to diuretics. #4. Multiple and recurrent hospitalizations for respiratory complications related to COPD, and ongoing and chronic nicotine abuse #5. Chronic A. fib on Xarelto #6. History of heavy EtOH abuse #7. Alcoholic cardiomyopathy, chronic congestive heart failure systolic dysfunction #8. Hypertension, hyperlipidemia #9. History of CVA involving the temporal lobe #10. Anemia #11. Cervical lumbar stenosis Plan: Chest x-ray has been reviewed, no acute cardiopulmonary process. Continue IV steroids, nebulized bronchodilators, will restart home dose Pulmicort. Patient is improving, we'll repeat blood work tomorrow, diuretics remain on hold, patient was given some IV fluids. I performed a history & physical examination of the patient and discussed their management with my nurse practitioner, Carolina Cochran. I reviewed the nurse practitioner's note and agree with the documented findings and plan of care. Lung sounds are positive for diffuse wheezes and rhonchi throughout the lung rocha. The findings and the impression was discussed with the patient. I attest to the documentation by the nurse practitioner. Time with Patient: Greater than 30
[2017-12-09 17:25] LABS: Glucose,Whole Blood 197 mg/dL (75-99)
[2017-12-09] MEDS: THIAMINE 100 MG TAB PO SCH (17:26)
[2017-12-09] MEDS: MAGNESIUM OXIDE 400 MG TAB PO SCH ×2 (17:26→19:57)
[2017-12-09] MEDS: HYDROcodone/APAP 10-325MG 1 EACH TAB PO PRN (20:01)
[2017-12-09] MEDS: BUDESONIDE 1 MG/2 ML NEBU INHALATION SCH (20:38)
[2017-12-09 20:50] LABS: Glucose,Whole Blood 292 mg/dL (75-99)
[2017-12-09] MEDS ORDERED: PRAVASTATIN SODIUM 40 MG TAB PO SCH (21:00)
--- NOTE | 2017-12-09 22:50 | P.HPIM ---
History of Present Illness H&P Date: 12/09/17 Chief Complaint: Shortness of breath Patient is a 72-year-old male with a known history of paroxysmal atrial fibrillation on anticoagulation, COPD, chronic alcohol abuse, hyperlipidemia, nonischemic cardiomyopathy with ejection fraction 20% and multiple other medical problems came to the hospital with complaints of shortness of breath. Patient had recent admission with COPD exacerbation and shortness of breath earlier This month. Patient continues to drink and smoke. Patient was found have atrial fibrillation with rapid ventricular rate. Denied any fever or chills. Patient does have cough without sputum production. No nausea vomiting or abdominal pain. No headache or dizziness. Denied any leg swelling. EKG showed atrial fibrillation with rapid ventricular rate Chest x-ray showed no acute cardiopulmonary process. AST, A LT not elevated. BUN/creatinine 38/1.3 Patient refused to quit alcohol and smoking. Review of Systems Constitutional: Patient denies any fever or chills . No generalized weakness or weight loss. Abdomen: Patient does have nausea. No vomiting. No abdominal pain or diarrhea.. Cardiovascular: Patient denies any chest pain or short of breath no palpitations. Respiratory: Cough without sputum production and shortness of breath Neurologic: Patient denied any numbness or tingling headache. Musculoskeletal: Patient denies any complaints of joint swelling or deformity. Skin: Negative Psychiatric: Negative Endocrine: No heat or cold intolerance. No recent weight gain. Genitourinary: No dysuria or hematuria. 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%, history cervical and lumbar spondylosis, carpal tunnel disease, paroxysmal atrial fibrillation, previous hospitalization for alcohol intoxication and altered mentation and previous history of fall with pulmonary contusion and traumatic right-sided fractures, history of delirium tremens, chronic atrial fibrillation, hypertension, hyperlipidemia, previous bouts of pneumonia, previous hospital physician for acute alcohol intoxication, kidney stones, cataracts, degenerative arthritis History of Any Multi-Drug Resistant Organisms: None Reported Past Surgical History: Back Surgery, Hernia Repair Additional Past Surgical History / Comment(s): right shoulder surgery, bilateral cataract surgery, umbilical hernia surgery, kidney stones removal, hammer toe surgery X3 with subsequent amputation of the second toe on right foot , pain injections through neurology, colonoscopy Past Anesthesia/Blood Transfusion Reactions: No Reported Reaction Past Psychological History: No Psychological Hx Reported Additional Psychological History / Comment(s): Lives with friend, Bekah Arriaga. she lives in the upstairs of his home. Smoking Status: Current every day smoker Past Alcohol Use History: Daily, Heavy Additional Past Alcohol Use History / Comment(s): Smokes 1 PPD, USUALLY DRINKS "at least" A FIFTH OF VODKA BETWEEN 9PM-MIDNIGHT DAILY Past Drug Use History: None Reported - Past Family History Father Family Medical History: Diabetes Mellitus Mother History Unknown: Yes Additional Family Medical History / Comment(s): 2001 Medications and Allergies Home Medications Medication Instructions Recorded Confirmed Type Albuterol Sulfate [Proair Hfa] 2 puff INHALATION RT-Q6H PRN 09/14/16 12/08/17 History Rivaroxaban [Xarelto] 20 mg PO DAILY 03/28/17 12/08/17 History Ipratropium-Albuterol Nebulize 3 ml INHALATION RT-QID 10/14/17 12/08/17 History [Duoneb 0.5 mg-3 mg/3 ml Soln] Amiodarone [Cordarone] 400 mg PO DAILY #30 tab 10/21/17 12/08/17 Rx Budesonide [Pulmicort] 1 mg INHALATION RT-BID #20 nebu 10/21/17 12/08/17 Rx Formoterol Fumarate [Perforomist] 20 mcg INHALATION RT-BID #20 nebu 10/21/17 Rx Pravastatin Sodium [Pravachol] 40 mg PO HS #30 tab 10/21/17 12/08/17 Rx Aspirin EC [Ecotrin Low Dose] 81 mg PO DAILY 10/24/17 12/08/17 History Furosemide [Lasix] 40 mg PO BID@0900,1600 tab 10/27/17 12/08/17 Rx HYDROcodone/APAP 10-325MG [[place] 1 tab PO Q6H PRN #10 tab 10/27/17 12/08/17 Rx 10-325] Magnesium Oxide [Mag-Ox] 400 mg PO TID tab 10/27/17 12/08/17 Rx Metoprolol Tartrate [Lopressor] 100 mg PO BID #90 tab 10/27/17 12/08/17 Rx Potassium Chloride ER [K-Dur 20] 20 meq PO DAILY tab.er.prt 10/27/17 12/08/17 Rx Spironolactone [Aldactone] 25 mg PO DAILY tab 10/27/17 12/08/17 Rx Thiamine [Vitamin B-1] 100 mg PO BID@1200,1700 tab 10/27/17 12/08/17 Rx Lisinopril [Zestril] 2.5 mg PO BID #60 tab 11/19/17 12/08/17 Rx Ipratropium [place] [Atrovent Hfa] 2 puff INHALATION RT-QID PRN 11/28/17 History Tamsulosin [Flomax] 0.4 mg PO DAILY 11/28/17 12/08/17 History predniSONE See Taper PO DIRECTED 12/08/17 12/08/17 History Allergies Allergy/AdvReac Type Severity Reaction Status Date / Time cephalexin monohydrate Allergy Rash/Hives Verified 12/08/17 19:56 [From Keflex] Physical Exam Vitals: Vital Signs Temp Pulse Pulse Resp BP BP Pulse Ox 12/09/17 11:16 110 H 12/09/17 08:13 112 H 12/09/17 08:04 110 H 12/09/17 04:10 98.2 F 96 20 89/51 96 12/09/17 03:10 95 20 12/09/17 00:08 111 H 12/08/17 23:50 112 H 12/08/17 22:45 97.9 F 96 20 113/61 98 12/08/17 22:12 99.3 F 122 H 20 105/61 95 12/08/17 21:32 121 H 18 100/51 95 12/08/17 20:37 125 H 24 116/69 96 12/08/17 20:23 112 H 12/08/17 20:14 145 H 12/08/17 20:06 155 H 12/08/17 19:59 126/71 12/08/17 19:52 99.7 F H 150 H 30 H 96 12/08/17 19:44 152 H 12/08/17 19:32 99.3 F 69 30 H 87/43 96 Intake and Output 12/08/17 12/09/17 12/09/17 22:59 06:59 14:59 Intake Total 784.833 200 Output Total 550 Balance 234.833 200 Intake: Intake, IV Titration 784.833 Amount Diltiazem 50 mg In Sodium 49.833 Chloride 0.9% 40 ml @ 5 MG/HR 5 mls/hr IV .Q10H LUKASZ Rx#:[id number] Sodium Chloride 0.9% 1, 700 000 ml @ 100 mls/hr IV . Q10H LUKASZ Rx#:[id number] Sodium Chloride 0.9% 1, 35 000 ml @ 100 mls/hr IV . Q10H STA Rx#:[id number] Oral 200 Output: Urine 550 Other: Voiding Method Urinal Urinal # Voids 2 Weight 63.6 kg 63.6 kg PHYSICAL EXAMINATION: Patient is lying in the bed comfortably, no acute distress, awake alert and oriented.. HEENT: Normocephalic. Neck is supple. Pupils reactive. Nostrils clear. Oral cavity is moist. Ears reveal no drainage. Neck reveals no JVD, carotid bruits, or thyromegaly. CHEST EXAMINATION: Trachea is central. Symmetrical expansion. Bilateral diminished air entry and expiratory wheezing present. Rhonchi positive. CARDIAC: Normal S1, S2 with no gallops. No murmurs ABDOMEN: Soft. Bowel sounds normal. No organomegaly. No abdominal bruits. Extremities: reveal no edema. No clubbing or cyanosis Neurologically awake, alert, oriented x3 with well-coordinated movements. No focal deficits noted Skin: No rash or skin lesions. Psychiatric: Coperative. Nonsuicidal. Musculoskeletal: No joint swelling or deformity. Normal range of motion. Results CBC & Chem 7: 12/08/17 19:49 12/08/17 19:49 Labs: Abnormal Lab Results - Last 24 Hours (Table) 12/08/17 12/08/17 12/08/17 Range/Units 19:49 19:49 19:49 WBC 15.1 H (3.8-10.6) k/uL RBC 4.11 L (4.30-5.90) m/uL Hgb 10.8 L (13.0-17.5) gm/dL Hct 35.8 L (39.0-53.0) % MCHC 30.1 L (31.0-37.0) g/dL RDW 17.6 H (11.5-15.5) % Neutrophils # 11.9 H (1.3-7.7) k/uL APTT (22.0-30.0) sec Sodium 135 L (137-145) mmol/L Chloride 97 L (98-107) mmol/L BUN 38 H (9-20) mg/dL Creatinine 1.30 H (0.66-1.25) mg/dL Total Creatine Kinase <20 L (55-170) U/L Total Protein 5.8 L (6.3-8.2) g/dL Albumin 3.3 L (3.5-5.0) g/dL HDL Cholesterol (40-60) mg/dL 12/08/17 12/08/17 12/09/17 Range/Units 19:49 19:49 01:30 WBC (3.8-10.6) k/uL RBC (4.30-5.90) m/uL Hgb (13.0-17.5) gm/dL Hct (39.0-53.0) % MCHC (31.0-37.0) g/dL RDW (11.5-15.5) % Neutrophils # (1.3-7.7) k/uL APTT 20.4 L (22.0-30.0) sec Sodium (137-145) mmol/L Chloride (98-107) mmol/L BUN (9-20) mg/dL Creatinine (0.66-1.25) mg/dL Total Creatine Kinase 23 L (55-170) U/L Total Protein (6.3-8.2) g/dL Albumin (3.5-5.0) g/dL HDL Cholesterol 38 L (40-60) mg/dL 12/09/17 Range/Units 07:34 WBC (3.8-10.6) k/uL RBC (4.30-5.90) m/uL Hgb (13.0-17.5) gm/dL Hct (39.0-53.0) % MCHC (31.0-37.0) g/dL RDW (11.5-15.5) % Neutrophils # (1.3-7.7) k/uL APTT (22.0-30.0) sec Sodium (137-145) mmol/L Chloride (98-107) mmol/L BUN (9-20) mg/dL Creatinine (0.66-1.25) mg/dL Total Creatine Kinase <20 L (55-170) U/L Total Protein (6.3-8.2) g/dL Albumin (3.5-5.0) g/dL HDL Cholesterol (40-60) mg/dL Thrombosis Risk Factor Assmnt - DVT/VTE Prophylaxis DVT/VTE Prophylaxis: Pharmacologic Prophylaxis ordered - Choose All That Apply Any of the Below Risk Factors Present?: Yes Each Factor Represents 1 point: Abnormal pulmonary function (COPD), Heart failure (<1month) Other Risk Factors: Yes Each Risk Factor Represents 2 Points: Age 61-74 years Other congenital or acquired thrombophilia - If yes, enter type in comment: No Thrombosis Risk Factor Assessment Total Risk Factor Score: 4 Thrombosis Risk Factor Assessment Level: Moderate Risk Assessment and Plan Assessment: Acute COPD exacerbation Atrial fibrillation with rapid ventricular rate Paroxysmal it fibrillation on anticoagulation with xarelto. Patient is also on amiodarone and Lopressor.\\ Acute kidney injury with creatinine level I.3 Severe Alcohol abuse Nicotine dependence Nonischemic cardiomyopathy ejection fraction less than 20% Chronic CHF with systolic dysfunction Hypertension Hyperlipidemia Previous history of CVA Plan: Patient will be continued on IV steroids and breathing treatments including Pulmicort and Perforomist. Pulmonary and cardiology is following. Patient is controlled currently. On the Lopressor as well as amiodarone. Continue with anticoagulation with xarelto. Patient has been counseled extensively for smoking cessation as well as alcohol abuse but patient refuses to quit. Further recommendations based on the clinical course. Prognosis is guarded. Time with Patient: Greater than 30
[2017-12-10] MEDS: HYDROcodone/APAP 10-325MG 1 EACH TAB PO PRN ×2 (02:51→09:37)
[2017-12-10 06:03] LABS: Glucose,Whole Blood 197 mg/dL (75-99)
[2017-12-10 06:22] LABS: Anisocytosis Slight; Basophils % (A) 0 %; Eosinophils # (A) 0.1 k/uL (0-0.7); Eosinophils % (A) 0 %; HCT 26.6 % (39.0-53.0); Hypochromasia Marked; Lymphocytes # (A) 0.8 k/uL (1.0-4.8); Lymphocytes % (A) 4 %; MCH 27.3 pg (25.0-35.0); MCHC 31.2 g/dL (31.0-37.0); MCV 87.5 fL (80.0-100.0); Mean Platelet Volume 7.5; Monocytes # (A) 0.5 k/uL (0-1.0); Monocytes % (A) 3 %; Neutrophils # (A) 17.5 k/uL (1.3-7.7); Neutrophils % (A) 93 %; Platelet Count 178 k/uL (150-450); RBC 3.04 m/uL (4.30-5.90); RDW 17.3 % (11.5-15.5); WBC 18.9 k/uL (3.8-10.6)
[2017-12-10] MEDS: INSULIN ASPART 100 UNIT/ML 1 ML 10 ML VIAL SQ SCH ×2 (06:23→12:20)
[2017-12-10] MEDS: methylPREDNISolone SOD SUCCI 125 MG/2 ML VIAL IV SCH (06:23)
[2017-12-10 06:26] LABS: HGB 8.3 gm/dL (13.0-17.5)
[2017-12-10 07:34] LABS: Calcium 8.2 mg/dL (8.4-10.2); Potassium 5.3 mmol/L (3.5-5.1)
[2017-12-10] MEDS: BUDESONIDE 1 MG/2 ML NEBU INHALATION SCH (07:53)
[2017-12-10] MEDS: IPRATROPIUM-ALBUTEROL 3 ML NEB INHALATION SCH ×3 (07:53→15:50)
[2017-12-10] MEDS ORDERED: TAMSULOSIN 0.4 MG CAP.ER.24H PO SCH (09:00)
[2017-12-10] MEDS: ASPIRIN 325 MG TAB PO SCH (09:20)
[2017-12-10] MEDS: RIVAROXABAN 15 MG TAB PO SCH (09:20)
[2017-12-10] MEDS: SPIRONOLACTONE 25 MG TAB PO SCH (09:20)
[2017-12-10] MEDS: METOPROLOL TARTRATE 50 MG TAB PO SCH (09:20)
[2017-12-10] MEDS: AMIODARONE 200 MG TAB PO SCH (09:20)
[2017-12-10] MEDS: MAGNESIUM OXIDE 400 MG TAB PO SCH ×2 (09:21→17:02)
--- NOTE | 2017-12-10 10:58 | P.PN ---
Subjective Progress Note Date: 12/10/17 Principal diagnosis: Exacerbation of COPD, atrial fibrillation with RVR Mr. Hills is a 72-year-old male patient, presented to emergency department on 12/08/2017 at 1900 for evaluation of severe shortness of breath, A. fib RVR. Patient was recently hospitalized for the same. Patient has history of advanced COPD with chronic hypoxic respiratory failure. Unfortunately patient has poor medical compliance, he continues to smoke, and was previously known for heavy alcohol abuse. He denies ongoing alcohol abuse. History of chronic atrial fibrillation, on Xarelto, history of alcoholic cardiomyopathy, congestive heart failure, hypertension, hyperlipidemia, CVA involving the temporal lobe, chronic anemia, cervical and lumbar stenosis, previous episodes of pneumonia. He is to see Dr. Virk in the pulmonary office for his COPD, however has not been able to see him in follow-up due to lack of transportation. Patient has had multiple and recurrent hospitalizations for respiratory complications related to COPD, and atrial fibrillation with RVR. Chest x-ray showed no active cardiopulmonary process. EKG showed atrial fibrillation with a rate of 160 BPM, patient was started on Cardizem drip. Continues on his home dose Xarelto. WBC is 15.1, hemoglobin is 10.8, sodium is 135, chloride is 97, BUN is 38, creatinine is 1.3, troponins were negative 3, proBNP was within normal limits at 527. Cardiology is following, patient is on oral amiodarone, he continues on nebulized bronchodilators, and IV Solu-Medrol, he is feeling better on today's exam. On 09/09/2017 patient seen in follow-up on selective care unit. Breathing much better today, hardly any wheezing on today's exam, a few bibasilar crackles, he states he is feeling much better today, and is asking if he could go home today. Afebrile, denies any chest pain, his heart rate is better controlled. Pulse ox on 2 L per nasal cannula was 98%, no chest x-rays today, WBCs 18.9, hemoglobin is 8.3, potassium is 5.3, chloride is 108, BUN is 37, creatinine is 1.06. Etiology is following, patient is now on oral amiodarone, he remains on IV steroids, nebulized bronchodilators, and he is improving from the pulmonary standpoint. Objective - Vital Signs Vital signs: Vital Signs Temp 97.9 F 12/10/17 03:04 Pulse 108 H 12/10/17 08:06 Resp 19 12/10/17 03:06 BP 112/76 12/10/17 03:04 Pulse Ox 98 12/10/17 03:04 Intake & Output 12/09/17 12/10/17 12/10/17 18:59 06:59 18:59 Intake Total 430 160 Output Total 200 400 Balance 230 -240 Weight 67.8 kg Intake: Intake, IV Titration 160 Amount Sodium Chloride 0.9% 1, 160 000 ml @ 20 mls/hr IV . Q24H [facility] Rx#:[id number] Oral 430 Output: Urine 200 400 Other: Voiding Method Urinal Urinal # Voids 1 1 - Exam GENERAL EXAM: Alert, irritable 72-year-old white male, comfortable in no apparent distress. HEAD: Normocephalic/atraumatic. EYES: Normal reaction of pupils, equal size. Conjunctiva pink, sclera white. NOSE: Clear with pink turbinates. THROAT: No erythema or exudates. NECK: No masses, no JVD, no thyroid enlargement, no adenopathy. CHEST: No chest wall deformity. Symmetrical expansion. LUNGS: Diminished, coarse, with scattered rhonchi, no wheezes on today's exam CVS: Irregular rate and rhythm, normal S1 and S2, no gallops, no murmurs, no rubs ABDOMEN: Soft, nontender. No hepatosplenomegaly, normal bowel sounds, no guarding or rigidity. EXTREMITIES: No clubbing, no edema, no cyanosis, 2+ pulses and upper and lower extremities. MUSCULOSKELETAL: Muscle strength and tone normal. SPINE: No scoliosis or deformity SKIN: No rashes CENTRAL NERVOUS SYSTEM: Alert and oriented -3. No focal deficits, tone is normal in all 4 extremities. PSYCHIATRIC: Alert and oriented -3. Appropriate affect. Intact judgment and insight. - Labs CBC & Chem 7: 12/10/17 05:55 12/10/17 05:55 Labs: Abnormal Lab Results - Last 24 Hours (Table) 12/09/17 12/09/17 12/09/17 Range/Units 12:14 17:15 20:48 WBC (3.8-10.6) k/uL RBC (4.30-5.90) m/uL Hgb (13.0-17.5) gm/dL Hct (39.0-53.0) % RDW (11.5-15.5) % Neutrophils # (1.3-7.7) k/uL Lymphocytes # (1.0-4.8) k/uL Sodium (137-145) mmol/L Potassium (3.5-5.1) mmol/L Chloride (98-107) mmol/L BUN (9-20) mg/dL Glucose (74-99) mg/dL POC Glucose (mg/dL) 274 H 197 H 292 H (75-99) mg/dL Calcium (8.4-10.2) mg/dL 12/10/17 12/10/17 12/10/17 Range/Units 05:50 05:55 05:55 WBC 18.9 H (3.8-10.6) k/uL RBC 3.04 L (4.30-5.90) m/uL Hgb 8.3 L D (13.0-17.5) gm/dL Hct 26.6 L (39.0-53.0) % RDW 17.3 H (11.5-15.5) % Neutrophils # 17.5 H (1.3-7.7) k/uL Lymphocytes # 0.8 L (1.0-4.8) k/uL Sodium 136 L (137-145) mmol/L Potassium 5.3 H (3.5-5.1) mmol/L Chloride 108 H (98-107) mmol/L BUN 37 H (9-20) mg/dL Glucose 155 H (74-99) mg/dL POC Glucose (mg/dL) 197 H (75-99) mg/dL Calcium 8.2 L (8.4-10.2) mg/dL Assessment and Plan Plan: Assessment: #1. Acute exacerbation of chronic obstructive pulmonary disease #2. Atrial fibrillation with RVR #3. Advanced COPD, with chronic hypoxic respiratory failure #4. Acute kidney injury, possibly related to diuretics. #4. Multiple and recurrent hospitalizations for respiratory complications related to COPD, and ongoing and chronic nicotine abuse #5. Chronic A. fib on Xarelto #6. History of heavy EtOH abuse #7. Alcoholic cardiomyopathy, chronic congestive heart failure systolic dysfunction #8. Hypertension, hyperlipidemia #9. History of CVA involving the temporal lobe #10. Anemia #11. Cervical lumbar stenosis Plan: Patient is improving, from pulmonary standpoint, increase activity, is inquiring whether he can go home today. From pulmonary standpoint he could be cleared for discharge, pending clearance from cardiology. We'll decrease his IV Solu-Medrol to 40 every 8 hours, and that can be switched to prednisone at the time of discharge. I performed a history & physical examination of the patient and discussed their management with my nurse practitioner, Carolina Cochran. I reviewed the nurse practitioner's note and agree with the documented findings and plan of care. Lung sounds are positive for rhonchi. The findings and the impression was discussed with the patient. I attest to the documentation by the nurse practitioner. Time with Patient: Less than 30
[2017-12-10 12:07] LABS: Glucose,Whole Blood 209 mg/dL (75-99)
[2017-12-10] MEDS ORDERED: NADOLOL 20 MG TAB PO SCH (12:15)
[2017-12-10 12:36] VITALS: RESP 20
--- NOTE | 2017-12-10 12:46 | P.PN ---
Subjective Progress Note Date: 12/10/17 This is a 72-year-old gentleman with known history of chronic alcoholism, paroxysmal atrial fibrillation, COPD, hyperlipidemia, caffeine dependence, hypertension, diabetes, nonischemic cardiomyopathy, who was recently in the hospital earlier this month . He presents to the hospital on this occasion again with severe shortness of breath. Unfortunately, the patient continues to smoke, and continues to drink alcohol. He is quite frustrated that he has to be readmitted because of his rapid heart beating, however he also refuses to make any lifestyle changes. His EKG on admission here showed atrial fibrillation with a rapid ventricular response, this morning he continues to be in atrial fibrillation, his heart rate this morning is in the 90 range. Chest x-ray on admission did not reveal any acute changes. Blood pressure on arrival here 90/40 with a heart rate in the 60s, 96% on room air. White blood cell count 15.1, hemoglobin 10.8, platelet count 258. Sodium 135, potassium 4.4, BUN 38, creatinine 1.3. Troponins are negative 3. BNP level 527. Most recent echocardiogram with Doppler study was performed in September which revealed severely impaired left ventricular systolic function ejection fraction less than 20%, mild at the time of my examination this morning , she denies any difficulty breathing, no palpitations. He is just extremely depressed and frustrated that he is back in the hospital. 12/10/2017 Patient seen and examined this morning, continues to be in atrial fibrillation, heart rate in the 90s today. He is quite eager to be discharged home. He has been cleared by primary and pulmonary service for discharge. I pressure 114/60 today. White blood cell count 18.9, hemoglobin 8.3, platelet count 178. Sodium 136, potassium 5.3, BUN 37, creatinine 1.0. We will discontinue the beta chidi today and start the patient on nadolol 20 mg one tablet by mouth twice a day. Continue amiodarone. Objective - Vital Signs Vital signs: Vital Signs Temp 98.4 F 12/10/17 08:00 Pulse 96 12/10/17 11:45 Resp 20 12/10/17 08:00 BP 114/55 12/10/17 08:00 Pulse Ox 95 12/10/17 08:00 Intake & Output 12/09/17 12/10/17 12/10/17 18:59 06:59 18:59 Intake Total 430 160 Output Total 200 400 Balance 230 -240 Weight 67.8 kg Intake: Intake, IV Titration 160 Amount Sodium Chloride 0.9% 1, 160 000 ml @ 20 mls/hr IV . Q24H [facility] Rx#:[id number] Oral 430 Output: Urine 200 400 Other: Voiding Method Urinal Urinal # Voids 1 1 - Exam GENERAL EXAM: Alert, 72-year-old white male comfortable in no apparent distress. HEAD: Normocephalic/atraumatic. EYES: Normal reaction of pupils, equal size. Conjunctiva pink, sclera white. NOSE: Clear with pink turbinates. THROAT: No erythema or exudates. NECK: No masses, no JVD, no thyroid enlargement, no adenopathy. CHEST: No chest wall deformity. Symmetrical expansion. LUNGS: Scattered diffuse rhonchi, and wheezes bilaterally, congestive cough with production of white sputum CVS: Regular rate and rhythm, normal S1 and S2, no gallops, no murmurs, no rubs ABDOMEN: Soft, nontender. No hepatosplenomegaly, normal bowel sounds, no guarding or rigidity. EXTREMITIES: No clubbing, no edema, no cyanosis, 2+ pulses and upper and lower extremities. MUSCULOSKELETAL: Muscle strength and tone normal. SPINE: No scoliosis or deformity SKIN: No rashes CENTRAL NERVOUS SYSTEM: Alert and oriented -3. No focal deficits, tone is normal in all 4 extremities. PSYCHIATRIC: Alert and oriented -3. Appropriate affect. Intact judgment and insight. - Labs CBC & Chem 7: 12/10/17 05:55 12/10/17 05:55 Labs: Abnormal Lab Results - Last 24 Hours (Table) 12/09/17 12/09/17 12/10/17 Range/Units 17:15 20:48 05:50 WBC (3.8-10.6) k/uL RBC (4.30-5.90) m/uL Hgb (13.0-17.5) gm/dL Hct (39.0-53.0) % RDW (11.5-15.5) % Neutrophils # (1.3-7.7) k/uL Lymphocytes # (1.0-4.8) k/uL Sodium (137-145) mmol/L Potassium (3.5-5.1) mmol/L Chloride (98-107) mmol/L BUN (9-20) mg/dL Glucose (74-99) mg/dL POC Glucose (mg/dL) 197 H 292 H 197 H (75-99) mg/dL Calcium (8.4-10.2) mg/dL 12/10/17 12/10/17 12/10/17 Range/Units 05:55 05:55 11:58 WBC 18.9 H (3.8-10.6) k/uL RBC 3.04 L (4.30-5.90) m/uL Hgb 8.3 L D (13.0-17.5) gm/dL Hct 26.6 L (39.0-53.0) % RDW 17.3 H (11.5-15.5) % Neutrophils # 17.5 H (1.3-7.7) k/uL Lymphocytes # 0.8 L (1.0-4.8) k/uL Sodium 136 L (137-145) mmol/L Potassium 5.3 H (3.5-5.1) mmol/L Chloride 108 H (98-107) mmol/L BUN 37 H (9-20) mg/dL Glucose 155 H (74-99) mg/dL POC Glucose (mg/dL) 209 H (75-99) mg/dL Calcium 8.2 L (8.4-10.2) mg/dL Assessment and Plan Plan: Assessment and Plan #1 symptoms of shortness of breath or palpitations, likely secondary to atrial fibrillation. Initial EKG shows A. fib with RVR. #2 known history of paroxysmal atrial fibrillation, on Xarelto at home for anticoagulation. Patient was also on amiodarone and Lopressor which has not been reordered here. #3 COPD #4 nicotine dependence #5 chronic EtOH use #6 nonischemic cardiomyopathy with documented ejection fraction of less than 20 % in September #7 hypertension history #8 hyperlipidemia #9 diabetes Plan From cardiology's perspective, patient may be able to be discharged home, he apparently is cleared to be discharged by pulmonary and primary service. He's been encouraged regarding the importance of taking his medications regularly, and avoiding alcohol and nicotine. We will discontinue his lopresser and start him on nadolol today. DNP note has been reviewed, I agree with a documented findings and plan of care. Patient was seen and examined.
[2017-12-10] MEDS: THIAMINE 100 MG TAB PO SCH ×2 (13:59→17:03)
[2017-12-10] MEDS: SODIUM CHLORIDE 0.9% 1,000 ML IV SCH (14:01)
[2017-12-10 15:40] VITALS: BP 110/58; TEMP 98
[2017-12-10] MEDS ORDERED: methylPREDNISolone SOD SUCCI 40 MG/ML 1 ML VIAL IV SCH (16:00)
[2017-12-10 17:24] VITALS: PULSE 84
[2017-12-10 19:12] LABS: Hemoglobin A1C 5.7 % (4.0-6.0)
[2017-12-11] MEDS ORDERED: ASPIRIN 325 MG TAB PO SCH (09:00)
== END 2017-12-10 17:19 | disposition home health service (06) | DRG 191 ==
LOC: EC 19:31 → 6SEL 21:42
PROVIDERS: ADMIT Hospitalist; ATTEND Hospitalist
DX: J44.1 Chronic obstructive pulmonary disease with (acute) exacerbation (principal); J96.11 Chronic respiratory failure with hypoxia; I42.6 Alcoholic cardiomyopathy; I50.22 Chronic systolic (congestive) heart failure; N17.9 Acute kidney failure, unspecified; F15.20 Other stimulant dependence, uncomplicated; M48.061 Spinal stenosis, lumbar region without neurogenic claudication; M48.02 Spinal stenosis, cervical region; D64.9 Anemia, unspecified; E11.9 Type 2 diabetes mellitus without complications; E78.5 Hyperlipidemia, unspecified; F10.20 Alcohol dependence, uncomplicated; F17.200 Nicotine dependence, unspecified, uncomplicated; Z71.41 Alcohol abuse counseling and surveillance of alcoholic; Z71.6 Tobacco abuse counseling; I11.0 Hypertensive heart disease with heart failure; I48.0 Paroxysmal atrial fibrillation; I48.2 Chronic atrial fibrillation; Z79.01 Long term (current) use of anticoagulants; Z79.899 Other long term (current) drug therapy; Z83.3 Family history of diabetes mellitus; Z86.73 Personal history of transient ischemic attack (TIA), and cerebral infarction without residual deficits; Z87.442 Personal history of urinary calculi; Z91.19 Patient's noncompliance with other medical treatment and regimen; Z91.81 History of falling; Z79.82 Long term (current) use of aspirin; Z79.52 Long term (current) use of systemic steroids; Z99.81 Dependence on supplemental oxygen; Z98.42 Cataract extraction status, left eye; Z98.41 Cataract extraction status, right eye; M19.90 Unspecified osteoarthritis, unspecified site; Z88.1 Allergy status to other antibiotic agents; T50.2X5A Adverse effect of carbonic-anhydrase inhibitors, benzothiadiazides and other diuretics, initial encounter; I95.9 Hypotension, unspecified; Z87.01 Personal history of pneumonia (recurrent)
CPT/HCPCS: 36415; 71045; 80048; 80053; 80061; 82550; 82553; 83036; 83735; 83880; 84484; 85025; 85610; 85730; 93005; 94640; 96361; 96365; 96366; 96375; 96376; 99285

== ENCOUNTER 2017-12-13 22:04 | Inpatient (IN) | payer MEDICARE ==
[2017-12-13] MEDS ORDERED: methylPREDNISolone SOD SUCCI 125 MG/2 ML VIAL IV STA (22:27)
[2017-12-13] MEDS ORDERED: SODIUM CHLORIDE 0.9% 500 ML IV STA (22:27)
[2017-12-13] MEDS ORDERED: IPRATROPIUM 0.5 MG/2.5 ML NEBU INHALATION STA (22:27)
[2017-12-13] MEDS ORDERED: ALBUTEROL NEBULIZED 2.5 MG/3 ML INHALATION STA (22:27)
--- NOTE | 2017-12-13 22:31 | ED ---
General Adult HPI - General Chief complaint: Shortness of Breath Stated complaint: SOB Time Seen by Provider: 12/13/17 22:09 Source: patient, EMS, RN notes reviewed, old records reviewed Mode of arrival: EMS Limitations: no limitations, altered mental status - History of Present Illness Initial comments: 72-year-old male presenting with worsening cough and dyspnea. Patient has history of COPD, A. fib, he presents with 2 days worsening symptoms. He was discharged 2 days ago after COPD exacerbation. He states his symptoms have worsened since discharge. Denies fever or chills. Denies chest pain. States his cough is productive of white sputum. Patient denies abdominal pain. Denies nausea denies vomiting. - Related Data Home Medications Medication Instructions Recorded Confirmed Albuterol Sulfate [Proair Hfa] 2 puff INHALATION RT-Q6H PRN 09/14/16 12/08/17 Rivaroxaban [Xarelto] 20 mg PO DAILY 03/28/17 12/08/17 Ipratropium-Albuterol Nebulize 3 ml INHALATION RT-QID 10/14/17 12/08/17 [Duoneb 0.5 mg-3 mg/3 ml Soln] Aspirin EC [Ecotrin Low Dose] 81 mg PO DAILY 10/24/17 12/08/17 Ipratropium [place] [Atrovent Hfa] 2 puff INHALATION RT-QID PRN 11/28/17 Tamsulosin [Flomax] 0.4 mg PO DAILY 11/28/17 12/08/17 Previous Rx's Medication Instructions Recorded Amiodarone [Cordarone] 400 mg PO DAILY #30 tab 10/21/17 Budesonide [Pulmicort] 1 mg INHALATION RT-BID #20 nebu 10/21/17 Formoterol Fumarate [Perforomist] 20 mcg INHALATION RT-BID #20 nebu 10/21/17 Pravastatin Sodium [Pravachol] 40 mg PO HS #30 tab 10/21/17 HYDROcodone/APAP 10-325MG [[place] 1 tab PO Q6H PRN #10 tab 10/27/17 10-325] Magnesium Oxide [Mag-Ox] 400 mg PO TID tab 10/27/17 Spironolactone [Aldactone] 25 mg PO DAILY tab 10/27/17 Thiamine [Vitamin B-1] 100 mg PO BID@1200,1700 tab 10/27/17 Lisinopril [Zestril] 2.5 mg PO DAILY #30 tab 12/10/17 Nadolol [Corgard] 20 mg PO BID #60 tab 12/10/17 predniSONE See Taper PO DAILY #21 tab 12/10/17 Allergies Allergy/AdvReac Type Severity Reaction Status Date / Time cephalexin monohydrate Allergy Rash/Hives Verified 12/08/17 19:56 [From Keflex] Review of Systems ROS Statement: Those systems with pertinent positive or pertinent negative responses have been documented in the HPI. ROS Other: All systems not noted in ROS Statement are negative. 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%, history cervical and lumbar spondylosis, carpal tunnel disease, paroxysmal atrial fibrillation, previous hospitalization for alcohol intoxication and altered mentation and previous history of fall with pulmonary contusion and traumatic right-sided fractures, history of delirium tremens, chronic atrial fibrillation, hypertension, hyperlipidemia, previous bouts of pneumonia, previous hospital physician for acute alcohol intoxication, kidney stones, cataracts, degenerative arthritis History of Any Multi-Drug Resistant Organisms: None Reported Past Surgical History: Back Surgery, Hernia Repair Additional Past Surgical History / Comment(s): right shoulder surgery, bilateral cataract surgery, umbilical hernia surgery, kidney stones removal, hammer toe surgery X3 with subsequent amputation of the second toe on right foot , pain injections through neurology, colonoscopy Past Anesthesia/Blood Transfusion Reactions: No Reported Reaction Past Psychological History: No Psychological Hx Reported Smoking Status: Current every day smoker Past Alcohol Use History: Daily Past Drug Use History: None Reported - Past Family History Father Family Medical History: Diabetes Mellitus Mother History Unknown: Yes Additional Family Medical History / Comment(s): 2001 General Exam Limitations: no limitations, altered mental status General appearance: alert, in no apparent distress Head exam: Present: atraumatic, normocephalic Eye exam: Present: normal appearance, PERRL ENT exam: Present: normal exam Neck exam: Present: normal inspection. Absent: tenderness, meningismus Respiratory exam: Present: respiratory distress, wheezes, decreased breath sounds, prolonged expiratory Cardiovascular Exam: Present: tachycardia, irregular rhythm GI/Abdominal exam: Present: soft. Absent: distended, tenderness, guarding Extremities exam: Present: normal inspection, normal capillary refill. Absent: pedal edema, calf tenderness Neurological exam: Present: alert, oriented X3, CN II-XII intact. Absent: motor sensory deficit Psychiatric exam: Present: normal affect, normal mood Skin exam: Present: warm, dry, intact. Absent: cyanosis, diaphoretic Course Vital Signs 12/13/17 12/13/17 12/13/17 22:08 23:35 23:50 Temperature 99.4 F Pulse Rate 95 95 95 Respiratory 19 Rate Blood Pressure 98/58 O2 Sat by Pulse 99 Oximetry 12/13/17 12/14/17 12/14/17 23:55 00:14 00:17 Temperature Pulse Rate 101 H 95 111 H Respiratory 20 Rate Blood Pressure 101/63 O2 Sat by Pulse 97 Oximetry 12/14/17 00:49 Temperature 98 F Pulse Rate 115 H Respiratory 20 Rate Blood Pressure 112/64 O2 Sat by Pulse 97 Oximetry EKG Findings - EKG Comments: EKG Findings:: EKG: A. fib with RVR, left axis deviation, right bundle branch block, rate of 127, QRS duration 50, QTC 523, overall stable compared to previous EKG. Medical Decision Making - Medical Decision Making 72-year-old male presenting with cough and dyspnea. On exam patient has expiratory wheezing, moderate respiratory distress. He is in A. fib with RVR. She started on Cardizem infusion, given albuterol, Atrovent, and steroids in the emergency department. Chest x-ray obtained, negative for focal pneumonia. He does have a leukocytosis, however this appears improved from previous at 14.7 from 18.9. Hemoglobin is 10 which is stable. CMP reveals elevated CO2 consistent with some chronic CO2 retention. Patient will be placed in observation for telemetry, heart rate control, and symptomatic treatment of COPD exacerbation. - Lab Data Result diagrams: 12/14/17 00:14 12/14/17 00:14 Lab Results 12/14/17 12/14/17 12/14/17 Range/Units 00:14 00:14 00:14 WBC 14.7 H (3.8-10.6) k/uL RBC 3.68 L (4.30-5.90) m/uL Hgb 10.0 L D (13.0-17.5) gm/dL Hct 32.0 L (39.0-53.0) % MCV 86.9 (80.0-100.0) fL MCH 27.2 (25.0-35.0) pg MCHC 31.3 (31.0-37.0) g/dL RDW 17.3 H (11.5-15.5) % Plt Count 177 (150-450) k/uL Neutrophils % 84 % Lymphocytes % 10 % Monocytes % 5 % Eosinophils % 1 % Basophils % 0 % Neutrophils # 12.3 H (1.3-7.7) k/uL Lymphocytes # 1.5 (1.0-4.8) k/uL Monocytes # 0.8 (0-1.0) k/uL Eosinophils # 0.1 (0-0.7) k/uL Basophils # 0.0 (0-0.2) k/uL Hypochromasia Moderate Anisocytosis Slight PT (9.0-12.0) sec INR (<1.2) APTT (22.0-30.0) sec Sodium 136 L (137-145) mmol/L Potassium 4.0 (3.5-5.1) mmol/L Chloride 102 (98-107) mmol/L Carbon Dioxide 31 H (22-30) mmol/L Anion Gap 3 mmol/L BUN 31 H (9-20) mg/dL Creatinine 1.20 (0.66-1.25) mg/dL Est GFR (CKD-EPI)AfAm 70 (>60 ml/min/1.73 sqM) Est GFR (CKD-EPI)NonAf 61 (>60 ml/min/1.73 sqM) Glucose 100 H (74-99) mg/dL Calcium 8.1 L (8.4-10.2) mg/dL Magnesium 1.9 (1.6-2.3) mg/dL Total Bilirubin 0.8 (0.2-1.3) mg/dL AST 25 (17-59) U/L ALT 58 (21-72) U/L Alkaline Phosphatase 71 (38-126) U/L Total Creatine Kinase <20 L (55-170) U/L CK-MB (CK-2) 0.7 (0.0-2.4) ng/mL CK-MB (CK-2) Rel Index Troponin I <0.012 (0.000-0.034) ng/mL NT-Pro-B Natriuret Pep pg/mL Total Protein 4.8 L (6.3-8.2) g/dL Albumin 2.6 L (3.5-5.0) g/dL 12/14/17 12/14/17 Range/Units 00:14 00:14 WBC (3.8-10.6) k/uL RBC (4.30-5.90) m/uL Hgb (13.0-17.5) gm/dL Hct (39.0-53.0) % MCV (80.0-100.0) fL MCH (25.0-35.0) pg MCHC (31.0-37.0) g/dL RDW (11.5-15.5) % Plt Count (150-450) k/uL Neutrophils % % Lymphocytes % % Monocytes % % Eosinophils % % Basophils % % Neutrophils # (1.3-7.7) k/uL Lymphocytes # (1.0-4.8) k/uL Monocytes # (0-1.0) k/uL Eosinophils # (0-0.7) k/uL Basophils # (0-0.2) k/uL Hypochromasia Anisocytosis PT 10.6 (9.0-12.0) sec INR 1.1 (<1.2) APTT 20.2 L (22.0-30.0) sec Sodium (137-145) mmol/L Potassium (3.5-5.1) mmol/L Chloride (98-107) mmol/L Carbon Dioxide (22-30) mmol/L Anion Gap mmol/L BUN (9-20) mg/dL Creatinine (0.66-1.25) mg/dL Est GFR (CKD-EPI)AfAm (>60 ml/min/1.73 sqM) Est GFR (CKD-EPI)NonAf (>60 ml/min/1.73 sqM) Glucose (74-99) mg/dL Calcium (8.4-10.2) mg/dL Magnesium (1.6-2.3) mg/dL Total Bilirubin (0.2-1.3) mg/dL AST (17-59) U/L ALT (21-72) U/L Alkaline Phosphatase (38-126) U/L Total Creatine Kinase (55-170) U/L CK-MB (CK-2) (0.0-2.4) ng/mL CK-MB (CK-2) Rel Index Troponin I (0.000-0.034) ng/mL NT-Pro-B Natriuret Pep 1730 pg/mL Total Protein (6.3-8.2) g/dL Albumin (3.5-5.0) g/dL Disposition Clinical Impression: Acute exacerbation of chronic obstructive airways disease, Rapid atrial fibrillation Disposition: ADMITTED IP TO THIS HOSP Condition: Stable Is patient prescribed a controlled substance at d/c from ED?: No Referrals: Darrick Georges MD [Primary Care Provider] - 1-2 days Decision to Admit Reason: Admit from EC Decision Date: 12/14/17 Decision Time: 01:07
--- NOTE | 2017-12-13 23:04 | XR ---
EXAMINATION TYPE: XR chest 2V DATE OF EXAM: 12/13/2017 COMPARISON: 12/08/2017 HISTORY: COPD. Short of breath TECHNIQUE: Frontal and lateral views of the chest are obtained. FINDINGS: There is no heart failure nor confluent pneumonic infiltrate. Costophrenic angles are rom r. There are chest leads. There is right shoulder prosthesis. Thoracic spine is intact. IMPRESSION: No active cardiopulmonary disease. No change.
[2017-12-14] MEDS: DILTIAZEM 50 MG in SODIUM CHLORIDE 0.9% 40 ML IV SCH ×2 (00:22→06:06)
[2017-12-14 00:26] LABS: Anisocytosis Slight; Basophils % (A) 0 %; Eosinophils # (A) 0.1 k/uL (0-0.7); Eosinophils % (A) 1 %; Hypochromasia Moderate; Lymphocytes # (A) 1.5 k/uL (1.0-4.8); Lymphocytes % (A) 10 %; MCH 27.2 pg (25.0-35.0); MCHC 31.3 g/dL (31.0-37.0); MCV 86.9 fL (80.0-100.0); Mean Platelet Volume 7.2; Monocytes # (A) 0.8 k/uL (0-1.0); Monocytes % (A) 5 %; Neutrophils # (A) 12.3 k/uL (1.3-7.7); Neutrophils % (A) 84 %; Platelet Count 177 k/uL (150-450); RBC 3.68 m/uL (4.30-5.90); RDW 17.3 % (11.5-15.5); WBC 14.7 k/uL (3.8-10.6)
[2017-12-14 00:34] LABS: Albumin 2.6 g/dL (3.5-5.0); Calcium 8.1 mg/dL (8.4-10.2); Magnesium 1.9 mg/dL (1.6-2.3); Total Bilirubin 0.8 mg/dL (0.2-1.3); Total Protein 4.8 g/dL (6.3-8.2)
[2017-12-14 00:42] LABS: INR 1.1 (<1.2); Prothrombin Time 10.6 sec (9.0-12.0)
[2017-12-14 00:46] LABS: Creatine Kinase <20 U/L (55-170)
[2017-12-14 00:54] LABS: Partial Thromboplastin Time 20.2 sec (22.0-30.0)
[2017-12-14 00:59] LABS: Creatine Kinase MB 0.7 ng/mL (0.0-2.4); Troponin I <0.012 ng/mL (0.000-0.034)
[2017-12-14] MEDS ORDERED: NALOXONE 0.4 MG/ML 1 ML VIAL IV PRN (01:03)
[2017-12-14] MEDS ORDERED: ALBUTEROL NEBULIZED 2.5 MG/3 ML INHALATION PRN ×2 (01:04→01:57)
[2017-12-14] MEDS ORDERED: HYDROcodone/APAP 10-325MG 1 EACH TAB PO PRN (01:08)
[2017-12-14 02:28] VITALS: BMI 18.1
[2017-12-14] MEDS: SODIUM CHLORIDE 0.9% 1,000 ML IV SCH (02:42)
[2017-12-14] MEDS ORDERED: ALBUTEROL NEBULIZED 2.5 MG/3 ML INHALATION SCH (04:00)
[2017-12-14] MEDS: ALBUTEROL NEBULIZED 2.5 MG/3 ML INHALATION SCH ×4 (07:16→19:59)
[2017-12-14] MEDS: methylPREDNISolone SOD SUCCI 125 MG/2 ML VIAL IV SCH ×2 (08:54→15:44)
[2017-12-14] MEDS ORDERED: LISINOPRIL 2.5 MG TAB PO SCH (09:00)
[2017-12-14] MEDS ORDERED: NADOLOL 20 MG TAB PO SCH (09:00)
[2017-12-14] MEDS ORDERED: DIGOXIN 250 MCG/ML 2 ML AMP IVP ONE (09:30)
[2017-12-14] MEDS: AMIODARONE 200 MG TAB PO SCH (10:20)
[2017-12-14] MEDS: SPIRONOLACTONE 25 MG TAB PO SCH (10:21)
[2017-12-14] MEDS ORDERED: FUROSEMIDE 10 MG/ML 4 ML VIAL IV STA (11:24)
--- NOTE | 2017-12-14 11:27 | P.CRDCN ---
History of Present Illness History of present illness: Mr. Hills is a pleasant 72-year-old male past medical history significant for paroxysmal atrial fibrillation, COPD, dyslipidemia, hypertension , nonischemic cardiomyopathy, diabetes mellitus and chronic alcohol abuse. He presents to the hospital with symptoms of shortness of breath and palpitations. He was found to have an elevated heart rate and started on a Cardizem drip. He is seen sitting up on the side of the bed with frequent cough bringing up yellow phlegm. He denies symptoms of chest discomfort, dizziness, nausea, vomiting, diaphoresis or palpitations. EKG reveals atrial fibrillation, right bundle branch block pattern heart rate 127. Chest x-ray negative for an acute cardiopulmonary process. Laboratory data reviewed, WBC 14.7, hemoglobin 10, platelets 177, sodium 136, potassium 4.0, creatinine 1.2, magnesium 1.9, proBNP 1730, cardiac enzymes negative 1, TSH 1.08. Current cardiac medications include amiodarone 400 mg daily, aspirin 81 mg daily , lisinopril 2.5 mg daily, nadolol 20 mg twice a day, pravastatin 40 mg daily, Xarelto 20 mg daily, Aldactone 25 mg daily. He also takes prednisone, Flomax, DuoNeb, Atrovent, [place], Pulmicort and albuterol. Most recent echocardiogram performed in September revealed severely impaired left ventricular systolic function with ejection fraction less than 20%. He was recently discharged from the hospital last week on Friday for similar type scenario. At that time his Lopressor was changed to nadolol. He states he 's been compliant with his medication. Review of Systems At the time of my exam: CONSTITUTIONAL: Denies fever. Denies chills. EYES: Denies blurred vision. Denies vision changes. Denies eye pain. EARS, NOSE, MOUTH & THROAT: Denies headache. Denies sore throat. Denies ear pain. CARDIOVASCULAR: Denies chest pain. Complains of shortness of breath. Denies orthopnea. Denies PND. Denies palpitations. RESPIRATORY: Complains of cough. GASTROINTESTINAL: Denies abdominal pain. Denies diarrhea. Denies constipation. Denies nausea. Denies vomiting. MUSCULOSKELETAL: Denies myalgias. INTEGUMENTARY: Denies pruitis. Denies rash. NEUROLOGIC: Denies numbness. Denies tingling. Denies weakness. PSYCHIATRIC: Denies anxiety. Denies depression. ENDOCRINE: Denies fatigue. Denies weight change. Denies polydipsia. Denies polyurina. GENITOURINARY: Denies burning, hematuria or urgency with micturation. HEMATOLOGIC: Denies history of anemia. Denies bleeding. 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%, history cervical and lumbar spondylosis, carpal tunnel disease, paroxysmal atrial fibrillation, previous hospitalization for alcohol intoxication and altered mentation and previous history of fall with pulmonary contusion and traumatic right-sided fractures, history of delirium tremens, chronic atrial fibrillation, hypertension, hyperlipidemia, previous bouts of pneumonia, previous hospital physician for acute alcohol intoxication, kidney stones, cataracts, degenerative arthritis History of Any Multi-Drug Resistant Organisms: None Reported Past Surgical History: Back Surgery, Hernia Repair Additional Past Surgical History / Comment(s): right shoulder surgery, bilateral cataract surgery, umbilical hernia surgery, kidney stones removal, hammer toe surgery X3 with subsequent amputation of the second toe on right foot , pain injections through neurology, colonoscopy Past Anesthesia/Blood Transfusion Reactions: No Reported Reaction Past Psychological History: No Psychological Hx Reported Additional Psychological History / Comment(s): Lives with friend, Bekah Arriaga. she lives in the upstairs of his home. Smoking Status: Current every day smoker Past Alcohol Use History: Daily Additional Past Alcohol Use History / Comment(s): Smokes 1 PPD, USUALLY DRINKS "at least" A FIFTH OF VODKA BETWEEN 9PM-MIDNIGHT DAILY Past Drug Use History: None Reported - Past Family History Father Family Medical History: Diabetes Mellitus Mother History Unknown: Yes Additional Family Medical History / Comment(s): 2001 Medications and Allergies Home Medications Medication Instructions Recorded Confirmed Type Albuterol Sulfate [Proair Hfa] 2 puff INHALATION RT-Q6H PRN 09/14/16 12/14/17 History Rivaroxaban [Xarelto] 20 mg PO DAILY 03/28/17 12/14/17 History Ipratropium-Albuterol Nebulize 3 ml INHALATION RT-QID 10/14/17 12/14/17 History [Duoneb 0.5 mg-3 mg/3 ml Soln] Amiodarone [Cordarone] 400 mg PO DAILY #30 tab 10/21/17 12/14/17 Rx Budesonide [Pulmicort] 1 mg INHALATION RT-BID #20 nebu 10/21/17 12/14/17 Rx Formoterol Fumarate [Perforomist] 20 mcg INHALATION RT-BID #20 nebu 10/21/17 Rx Pravastatin Sodium [Pravachol] 40 mg PO HS #30 tab 10/21/17 12/14/17 Rx Aspirin EC [Ecotrin Low Dose] 81 mg PO DAILY 10/24/17 12/14/17 History HYDROcodone/APAP 10-325MG [[place] 1 tab PO Q6H PRN #10 tab 10/27/17 12/14/17 Rx 10-325] Magnesium Oxide [Mag-Ox] 400 mg PO TID tab 10/27/17 12/14/17 Rx Spironolactone [Aldactone] 25 mg PO DAILY tab 10/27/17 12/14/17 Rx Thiamine [Vitamin B-1] 100 mg PO BID@1200,1700 tab 10/27/17 12/14/17 Rx Ipratropium [place] [Atrovent Hfa] 2 puff INHALATION RT-QID PRN 11/28/17 History Tamsulosin [Flomax] 0.4 mg PO DAILY 11/28/17 12/14/17 History Lisinopril [Zestril] 2.5 mg PO DAILY #30 tab 12/10/17 12/14/17 Rx Nadolol [Corgard] 20 mg PO BID #60 tab 12/10/17 12/14/17 Rx predniSONE See Taper PO DAILY #21 tab 12/10/17 12/14/17 Rx Allergies Allergy/AdvReac Type Severity Reaction Status Date / Time cephalexin monohydrate Allergy Rash/Hives Verified 12/08/17 19:56 [From Keflex] Physical Exam Vitals: Vital Signs Temp Pulse Pulse Resp BP BP Pulse Ox 12/14/17 10:44 98 12/14/17 10:31 96 12/14/17 08:00 97.4 F L 110 H 20 90/47 98 12/14/17 03:05 98.0 F 104 H 16 103/68 97 12/14/17 01:32 97.7 F 104 H 20 97/51 97 12/14/17 01:06 139 H 12/14/17 01:04 106 H 20 95/51 97 12/14/17 00:49 98 F 115 H 20 112/64 97 12/14/17 00:17 111 H 20 101/63 97 12/14/17 00:14 95 12/13/17 23:55 101 H 12/13/17 23:50 95 12/13/17 23:35 95 12/13/17 22:08 99.4 F 95 19 98/58 99 Intake and Output 12/13/17 12/14/17 12/14/17 22:59 06:59 14:59 Intake Total 138.667 Balance 138.667 Intake: IV 10 Invasive Line 1 10 Intake, IV Titration 128.667 Amount Diltiazem 50 mg In Sodium 48.667 Chloride 0.9% 40 ml @ 5 MG/HR 5 mls/hr IV .Q10H [facility] Rx#:[id number] Sodium Chloride 0.9% 1, 80 000 ml @ 20 mls/hr IV . Q24H [facility] Rx#:[id number] Other: Voiding Method Urinal Weight 60.781 kg 61.5 kg Blood pressure 90/47 heart rate 110 afebrile maintaining oxygen saturation on room air GENERAL: This is a 72-year-old male in no apparent distress at the time of my examination. HEENT: Head is atraumatic, normocephalic. Pupils are equal, round. Sclerae anicteric. Conjunctivae are clear. Mucous membranes of the mouth are moist. Neck is supple. There is no jugular venous distention. No carotid bruit is heard. LUNGS: Scattered rhonchi noted throughout. Bibasilar rales. No wheezes. No chest wall tenderness is noted on palpation or with deep breathing. HEART: Irregular rate and rhythm without murmurs, rubs or gallops. S1 and S2 heard. ABDOMEN: Soft, nontender. Bowel sounds are heard. No organomegaly noted. EXTREMITIES: No evidence of peripheral edema and no calf tenderness noted. VASCULAR: Radial and dorsalis pedis pulses palpated, no evidence of clubbing. NEUROLOGIC: Patient is awake, alert and oriented x3. Results 12/14/17 00:14 12/14/17 00:14 Cardiac Enzymes 12/14/17 12/14/17 Range/Units 00:14 00:14 AST 25 (17-59) U/L CK-MB (CK-2) 0.7 (0.0-2.4) ng/mL Troponin I <0.012 (0.000-0.034) ng/mL Coagulation 12/14/17 Range/Units 00:14 PT 10.6 (9.0-12.0) sec APTT 20.2 L (22.0-30.0) sec CBC 12/14/17 Range/Units 00:14 WBC 14.7 H (3.8-10.6) k/uL RBC 3.68 L (4.30-5.90) m/uL Hgb 10.0 L D (13.0-17.5) gm/dL Hct 32.0 L (39.0-53.0) % Plt Count 177 (150-450) k/uL Comprehensive Metabolic Panel 12/14/17 Range/Units 00:14 Sodium 136 L (137-145) mmol/L Potassium 4.0 (3.5-5.1) mmol/L Chloride 102 (98-107) mmol/L Carbon Dioxide 31 H (22-30) mmol/L BUN 31 H (9-20) mg/dL Creatinine 1.20 (0.66-1.25) mg/dL Glucose 100 H (74-99) mg/dL Calcium 8.1 L (8.4-10.2) mg/dL AST 25 (17-59) U/L ALT 58 (21-72) U/L Alkaline Phosphatase 71 (38-126) U/L Total Protein 4.8 L (6.3-8.2) g/dL Albumin 2.6 L (3.5-5.0) g/dL Current Medications Generic Name Dose Route Start Last Admin Trade Name Freq PRN Reason Stop Dose Admin Hydrocodone Bitart/Acetaminophen 1 each 12/14/17 01:08 [place] 10 PO Q6H PRN Pain Albuterol Sulfate 2.5 mg 12/14/17 08:00 12/14/17 10:29 Ventolin Nebulized INHALATION 2.5 mg RT-QID [facility] Administration Albuterol Sulfate 2.5 mg 12/14/17 01:57 Ventolin Nebulized INHALATION RT-Q2H PRN Shortness Of Breath Or Wheezing Amiodarone HCl 400 mg 12/14/17 09:00 12/14/17 10:20 Cordarone PO 400 mg DAILY [facility] Administration Sodium Chloride 1,000 mls @ 20 mls/hr 12/14/17 01:15 12/14/17 02:42 Saline 0.9% IV Not Given .Q24H [facility] Lisinopril 2.5 mg 12/15/17 09:00 Zestril PO DAILY [facility] Methylprednisolone Sodium Succinate 60 mg 12/14/17 08:00 12/14/17 08:54 Solu-Medrol IV 60 mg Q8HR [facility] Administration Nadolol 20 mg 12/14/17 21:00 Corgard PO BID [facility] Naloxone HCl 0.2 mg 12/14/17 01:03 Narcan IV Q2M PRN Opioid Reversal Pravastatin Sodium 40 mg 12/14/17 21:00 Pravachol PO HS [facility] Rivaroxaban 20 mg 12/14/17 17:30 Xarelto PO W/SUPPER [facility] Spironolactone 25 mg 12/14/17 09:00 12/14/17 10:21 Aldactone PO 25 mg DAILY [facility] Administration Intake and Output 12/13/17 12/14/17 12/14/17 22:59 06:59 14:59 Intake Total 138.667 Balance 138.667 Intake: IV 10 Invasive Line 1 10 Intake, IV Titration 128.667 Amount Diltiazem 50 mg In Sodium 48.667 Chloride 0.9% 40 ml @ 5 MG/HR 5 mls/hr IV .Q10H [facility] Rx#:[id number] Sodium Chloride 0.9% 1, 80 000 ml @ 20 mls/hr IV . Q24H [facility] Rx#:[id number] Other: Voiding Method Urinal Weight 60.781 kg 61.5 kg 12/14/17 00:14 12/14/17 00:14 Assessment and Plan Assessment: ASSESSMENT Paroxysmal atrial fibrillation with rapid ventricular response on long-term anticoagulation Acute on chronic systolic heart failure Non-ischemic cardiomyopathy, probably alcoholic related COPD Hypertension Dyslipidemia Diabetes mellitus Chronic alcohol dependence Nicotine dependence PLAN Discontinue Cardizem infusion secondary to cardiomyopathy. Give dose of digoxin 250 g IV push 1 now. Resume Nadolol 20 mg twice a day. Hold lisinopril today. Continue amiodarone, pravastatin, Aldactone and Xarelto. If blood pressure tolerates we'll give one dose of IV Lasix. Accurate intake and output take documentation with daily weights. Follow-up actually kidney function daily. Smoking cessation recommended. Further recommendations to follow based upon clinical course. Thank you kindly for this consultation. Nurse Practitioner note has been reviewed, I agree with a documented findings and plan of care. Patient was seen and examined.
[2017-12-14 12:29] VITALS: RESP 18
[2017-12-14] MEDS ORDERED: RIVAROXABAN 20 MG TAB PO SCH (17:30)
[2017-12-14] MEDS ORDERED: PRAVASTATIN SODIUM 40 MG TAB PO SCH (21:00)
--- NOTE | 2017-12-14 21:34 | P.HPIM ---
History of Present Illness H&P Date: 12/14/17 Chief Complaint: Shortness of breath Patient is a 72-year-old male with a known history of paroxysmal atrial fibrillation on anticoagulation, COPD, chronic alcohol abuse, hyperlipidemia, nonischemic cardiomyopathy with ejection fraction 20% and multiple other medical problems came to the hospital with complaints of shortness of breath and palpitations. Patient had recent admission with COPD exacerbation and atrial fibrillation and shortness of breath earlier This month. Patient continues to drink and smoke. Patient was found have atrial fibrillation with rapid ventricular rate. Denied any fever or chills. Patient does have cough with sputum production. No change from recent admission. No nausea vomiting or abdominal pain. No headache or dizziness. Denied any leg swelling. Patient refused to quit alcohol and smoking. EKG reveals atrial fibrillation, right bundle branch block pattern heart rate 127. Chest x-ray negative for an acute cardiopulmonary process. Laboratory data reviewed, WBC 14.7, hemoglobin 10, platelets 177, sodium 136, potassium 4.0, creatinine 1.2, magnesium 1.9, proBNP 1730, cardiac enzymes negative 1, TSH 1.08. Most recent echocardiogram performed in September revealed severely impaired left ventricular systolic function with ejection fraction less than 20%. He was recently discharged from the hospital last week on Friday for similar type scenario. At that time his Lopressor was changed to nadolol. He states he 's been compliant with his medication. Review of Systems Constitutional: Patient denies any fever or chills . No generalized weakness or weight loss. Abdomen: Patient denied nausea vomiting and diarrhea and abdominal pain. Cardiovascular: Patient denied any chest pain. Shortnessofbreathandpalpitations. Respiratory: Cough with sputum production.. shortness of breath Neurologic: Patient denied any numbness or tingling headache. Musculoskeletal: Patient denies any complaints of joint swelling or deformity. Skin: Negative Psychiatric: Negative Endocrine: No heat or cold intolerance. No recent weight gain. Genitourinary: No dysuria or hematuria. 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%, history cervical and lumbar spondylosis, carpal tunnel disease, paroxysmal atrial fibrillation, previous hospitalization for alcohol intoxication and altered mentation and previous history of fall with pulmonary contusion and traumatic right-sided fractures, history of delirium tremens, chronic atrial fibrillation, hypertension, hyperlipidemia, previous bouts of pneumonia, previous hospital physician for acute alcohol intoxication, kidney stones, cataracts, degenerative arthritis History of Any Multi-Drug Resistant Organisms: None Reported Past Surgical History: Back Surgery, Hernia Repair Additional Past Surgical History / Comment(s): right shoulder surgery, bilateral cataract surgery, umbilical hernia surgery, kidney stones removal, hammer toe surgery X3 with subsequent amputation of the second toe on right foot , pain injections through neurology, colonoscopy Past Anesthesia/Blood Transfusion Reactions: No Reported Reaction Past Psychological History: No Psychological Hx Reported Additional Psychological History / Comment(s): Lives with friend, Bekah Arriaga. she lives in the upstairs of his home. Smoking Status: Current every day smoker Past Alcohol Use History: Daily Additional Past Alcohol Use History / Comment(s): Smokes 1 PPD, USUALLY DRINKS "at least" A FIFTH OF VODKA BETWEEN 9PM-MIDNIGHT DAILY Past Drug Use History: None Reported - Past Family History Father Family Medical History: Diabetes Mellitus Mother History Unknown: Yes Additional Family Medical History / Comment(s): 2001 Medications and Allergies Home Medications Medication Instructions Recorded Confirmed Type Albuterol Sulfate [Proair Hfa] 2 puff INHALATION RT-Q6H PRN 09/14/16 12/14/17 History Rivaroxaban [Xarelto] 20 mg PO DAILY 03/28/17 12/14/17 History Ipratropium-Albuterol Nebulize 3 ml INHALATION RT-QID 10/14/17 12/14/17 History [Duoneb 0.5 mg-3 mg/3 ml Soln] Amiodarone [Cordarone] 400 mg PO DAILY #30 tab 10/21/17 12/14/17 Rx Budesonide [Pulmicort] 1 mg INHALATION RT-BID #20 nebu 10/21/17 12/14/17 Rx Formoterol Fumarate [Perforomist] 20 mcg INHALATION RT-BID #20 nebu 10/21/17 Rx Pravastatin Sodium [Pravachol] 40 mg PO HS #30 tab 10/21/17 12/14/17 Rx Aspirin EC [Ecotrin Low Dose] 81 mg PO DAILY 10/24/17 12/14/17 History HYDROcodone/APAP 10-325MG [[place] 1 tab PO Q6H PRN #10 tab 10/27/17 12/14/17 Rx 10-325] Magnesium Oxide [Mag-Ox] 400 mg PO TID tab 10/27/17 12/14/17 Rx Spironolactone [Aldactone] 25 mg PO DAILY tab 10/27/17 12/14/17 Rx Thiamine [Vitamin B-1] 100 mg PO BID@1200,1700 tab 10/27/17 12/14/17 Rx Ipratropium [place] [Atrovent Hfa] 2 puff INHALATION RT-QID PRN 11/28/17 History Tamsulosin [Flomax] 0.4 mg PO DAILY 11/28/17 12/14/17 History Lisinopril [Zestril] 2.5 mg PO DAILY #30 tab 12/10/17 12/14/17 Rx Nadolol [Corgard] 20 mg PO BID #60 tab 12/10/17 12/14/17 Rx predniSONE See Taper PO DAILY #21 tab 12/10/17 12/14/17 Rx Allergies Allergy/AdvReac Type Severity Reaction Status Date / Time cephalexin monohydrate Allergy Rash/Hives Verified 12/14/17 12:17 [From Keflex] Physical Exam Vitals: Vital Signs Temp Pulse Pulse Resp BP BP Pulse Ox 12/14/17 10:44 98 12/14/17 10:31 96 12/14/17 08:00 97.4 F L 110 H 20 90/47 98 12/14/17 03:05 98.0 F 104 H 16 103/68 97 12/14/17 01:32 97.7 F 104 H 20 97/51 97 12/14/17 01:06 139 H 12/14/17 01:04 106 H 20 95/51 97 12/14/17 00:49 98 F 115 H 20 112/64 97 12/14/17 00:17 111 H 20 101/63 97 12/14/17 00:14 95 12/13/17 23:55 101 H 12/13/17 23:50 95 12/13/17 23:35 95 12/13/17 22:08 99.4 F 95 19 98/58 99 Intake and Output 12/13/17 12/14/17 12/14/17 22:59 06:59 14:59 Intake Total 138.667 240 Balance 138.667 240 Intake: IV 10 Invasive Line 1 10 Intake, IV Titration 128.667 Amount Diltiazem 50 mg In Sodium 48.667 Chloride 0.9% 40 ml @ 5 MG/HR 5 mls/hr IV .Q10H [facility] Rx#:[id number] Sodium Chloride 0.9% 1, 80 000 ml @ 20 mls/hr IV . Q24H [facility] Rx#:[id number] Oral 240 Other: Voiding Method Urinal Weight 60.781 kg 61.5 kg PHYSICAL EXAMINATION: Patient is lying in the bed comfortably, no acute distress, awake alert and oriented.. HEENT: Normocephalic. Neck is supple. Pupils reactive. Nostrils clear. Oral cavity is moist. Ears reveal no drainage. Neck reveals no JVD, carotid bruits, or thyromegaly. CHEST EXAMINATION: Trachea is central. Symmetrical expansion. Bilateral expiratory wheeze. No crackles. CARDIAC: Normal S1, S2 with no gallops. No murmurs ABDOMEN: Soft. Bowel sounds normal. No organomegaly. No abdominal bruits. Extremities: reveal no edema. No clubbing or cyanosis Neurologically awake, alert, oriented x3 with well-coordinated movements. No focal deficits noted Skin: No rash or skin lesions. Psychiatric: Coperative. Nonsuicidal Musculoskeletal: No joint swelling or deformity. Normal range of motion. Results CBC & Chem 7: 12/14/17 00:14 12/14/17 00:14 Labs: Abnormal Lab Results - Last 24 Hours (Table) 12/14/17 12/14/17 12/14/17 Range/Units 00:14 00:14 00:14 WBC 14.7 H (3.8-10.6) k/uL RBC 3.68 L (4.30-5.90) m/uL Hgb 10.0 L D (13.0-17.5) gm/dL Hct 32.0 L (39.0-53.0) % RDW 17.3 H (11.5-15.5) % Neutrophils # 12.3 H (1.3-7.7) k/uL APTT (22.0-30.0) sec Sodium 136 L (137-145) mmol/L Carbon Dioxide 31 H (22-30) mmol/L BUN 31 H (9-20) mg/dL Glucose 100 H (74-99) mg/dL Calcium 8.1 L (8.4-10.2) mg/dL Total Creatine Kinase <20 L (55-170) U/L Total Protein 4.8 L (6.3-8.2) g/dL Albumin 2.6 L (3.5-5.0) g/dL 12/14/17 Range/Units 00:14 WBC (3.8-10.6) k/uL RBC (4.30-5.90) m/uL Hgb (13.0-17.5) gm/dL Hct (39.0-53.0) % RDW (11.5-15.5) % Neutrophils # (1.3-7.7) k/uL APTT 20.2 L (22.0-30.0) sec Sodium (137-145) mmol/L Carbon Dioxide (22-30) mmol/L BUN (9-20) mg/dL Glucose (74-99) mg/dL Calcium (8.4-10.2) mg/dL Total Creatine Kinase (55-170) U/L Total Protein (6.3-8.2) g/dL Albumin (3.5-5.0) g/dL Thrombosis Risk Factor Assmnt - DVT/VTE Prophylaxis DVT/VTE Prophylaxis: Pharmacologic Prophylaxis ordered - Choose All That Apply Any of the Below Risk Factors Present?: Yes Each Factor Represents 1 point: Abnormal pulmonary function (COPD), Heart failure (<1month) Other Risk Factors: Yes Each Risk Factor Represents 2 Points: Age 61-74 years Other congenital or acquired thrombophilia - If yes, enter type in comment: No Thrombosis Risk Factor Assessment Total Risk Factor Score: 4 Thrombosis Risk Factor Assessment Level: Moderate Risk Assessment and Plan Assessment: Atrial fibrillation with rapid ventricular rate. Off Cardizem drip now. Patient was given a dose of digoxin. Acute COPD exacerbation. Improved wheezing. Paroxysmal it fibrillation on anticoagulation with xarelto. Patient is also on amiodarone and Lopressor.\\ Acute kidney injury with creatinine level I.3 Severe Alcohol abuse Nicotine dependence Nonischemic cardiomyopathy ejection fraction less than 20% Chronic CHF with systolic dysfunction Hypertension Hyperlipidemia Previous history of CVA Plan: Patient will be continued on IV steroids and breathing treatments including Pulmicort and Perforomist. cardiology is following. Patient is rate controlled currently. Lopressor was changed to nadolol during recent admission and continue with amiodarone. Continue with anticoagulation with xarelto. Patient has been counseled extensively for smoking cessation as well as alcohol abuse but patient refuses to quit. Further recommendations based on the clinical course. Prognosis is guarded. Time with Patient: Greater than 30
[2017-12-14] MEDS: NADOLOL 20 MG TAB PO SCH (22:29)
[2017-12-15] MEDS: SODIUM CHLORIDE 0.9% 1,000 ML IV SCH (03:37)
[2017-12-15] MEDS: methylPREDNISolone SOD SUCCI 40 MG/ML 1 ML VIAL IV SCH ×2 (03:37→08:21)
[2017-12-15] MEDS: IPRATROPIUM-ALBUTEROL 3 ML NEB INHALATION SCH ×3 (03:49→11:04)
[2017-12-15] MEDS ORDERED: IPRATROPIUM-ALBUTEROL 3 ML NEB INHALATION PRN (03:50)
[2017-12-15 06:30] LABS: Calcium 8.2 mg/dL (8.4-10.2); Potassium 4.9 mmol/L (3.5-5.1)
[2017-12-15] MEDS: NADOLOL 20 MG TAB PO SCH (08:21)
[2017-12-15] MEDS: AMIODARONE 200 MG TAB PO SCH (08:21)
[2017-12-15] MEDS: SPIRONOLACTONE 25 MG TAB PO SCH (08:22)
[2017-12-15] MEDS ORDERED: LISINOPRIL 2.5 MG TAB PO SCH (09:00)
--- NOTE | 2017-12-15 10:55 | PN ---
PROGRESS NOTE This patient underwent cholecystectomy yesterday. Patient tolerated the procedure well. He is comfortable. He denies any chest pain. No shortness of breath. Heart rate is 90 per minute, blood pressure is 111/62 mmHg. First and second heart sounds are normal. Lungs are clear to auscultation and percussion. FINAL IMPRESSION: This patient is stable, status post cholecystectomy. We will continue the patient on Lopressor 25 mg every 6 hourly. MMODL / IJN: [id number] /
[2017-12-15 11:29] LABS: Glucose,Whole Blood 238 mg/dL (75-99)
[2017-12-15] MEDS ORDERED: RIVAROXABAN 15 MG TAB PO SCH (11:35)
[2017-12-15 11:47] VITALS: BP 127/62; PULSE 83; TEMP 97.2
--- NOTE | 2017-12-15 12:07 | P.PN ---
Subjective Progress Note Date: 12/15/17 Mr. Hills is a pleasant 72-year-old male past medical history significant for paroxysmal atrial fibrillation, COPD, dyslipidemia, hypertension , nonischemic cardiomyopathy, diabetes mellitus and chronic alcohol abuse. He presents to the hospital with symptoms of shortness of breath and palpitations. He was seen and examined this morning, feels well, breathing is stable. Continues to be in atrial fibrillation, his rate is under adequate control. Blood pressure 126/60 with a heart rate in 80s, 100% on 3 L of oxygen. Objective - Vital Signs Vital signs: Vital Signs Temp 97.2 F L 12/15/17 11:46 Pulse 83 12/15/17 11:46 Resp 18 12/15/17 11:46 BP 127/62 12/15/17 11:46 Pulse Ox 100 12/15/17 11:46 Intake & Output 12/14/17 12/15/17 12/15/17 18:59 06:59 18:59 Intake Total 720 Output Total 150 Balance 720 -150 Weight 65.4 kg Intake: Oral 720 Output: Urine 150 Other: Voiding Method Urinal Toilet Urinal # Voids 2 # Bowel Movements 1 - Exam Blood pressure 90/47 heart rate 110 afebrile maintaining oxygen saturation on room air GENERAL: This is a 72-year-old male in no apparent distress at the time of my examination. HEENT: Head is atraumatic, normocephalic. Pupils are equal, round. Sclerae anicteric. Conjunctivae are clear. Mucous membranes of the mouth are moist. Neck is supple. There is no jugular venous distention. No carotid bruit is heard. LUNGS: Scattered rhonchi noted throughout. Bibasilar rales. No wheezes. No chest wall tenderness is noted on palpation or with deep breathing. HEART: Irregular rate and rhythm without murmurs, rubs or gallops. S1 and S2 heard. ABDOMEN: Soft, nontender. Bowel sounds are heard. No organomegaly noted. EXTREMITIES: No evidence of peripheral edema and no calf tenderness noted. VASCULAR: Radial and dorsalis pedis pulses palpated, no evidence of clubbing. NEUROLOGIC: Patient is awake, alert and oriented x3. - Labs CBC & Chem 7: 12/14/17 00:14 12/15/17 05:36 Labs: Abnormal Lab Results - Last 24 Hours (Table) 12/15/17 12/15/17 Range/Units 05:36 11:12 Sodium 134 L (137-145) mmol/L BUN 33 H (9-20) mg/dL Glucose 196 H (74-99) mg/dL POC Glucose (mg/dL) 238 H (75-99) mg/dL Calcium 8.2 L (8.4-10.2) mg/dL Microbiology - Last 24 Hours (Table) 12/14/17 00:14 Blood Culture - Preliminary Blood No Growth after 24 hours Assessment and Plan Plan: ASSESSMENT #1 Paroxysmal atrial fibrillation with rapid ventricular response on long-term anticoagulation #2 Acute on chronic systolic heart failure #3 Non-ischemic cardiomyopathy, probably alcoholic related #4 COPD #4 Hypertension #5 Dyslipidemia #6 Diabetes mellitus #7 Chronic alcohol dependence #8 Nicotine dependence Plan From cardiology's perspective, patient may be able to be discharged once cleared by primary. We'll recommend an oral dose of Lasix on discharge, discontinue baby aspirin. DNP note has been reviewed, I agree with a documented findings and plan of care. Patient was seen and examined.
--- NOTE | 2017-12-15 12:16 | P.DS ---
Providers Date of admission: 12/14/17 01:04 Attending physician: Nelson Larsen Consults: 12/14/17 03:16 Consult Physician Routine Consulting Provider: Chase Houser Consult Reason/Comments: Afib RVR Do you want consulting provider notified?: Yes Primary care physician: Darrick June [facility] Course: 72-year-old male with a known history of paroxysmal atrial fibrillation on anticoagulation, COPD, chronic alcohol abuse, hyperlipidemia, nonischemic cardiomyopathy with ejection fraction 20% and multiple other medical problems came to the hospital with complaints of shortness of breath and palpitations. Patient had recent admission with COPD exacerbation and atrial fibrillation and shortness of breath earlier This month. Patient continues to drink and smoke. Patient was found have atrial fibrillation with rapid ventricular rate. Denied any fever or chills. Patient does have cough with sputum production. No change from recent admission. No nausea vomiting or abdominal pain. No headache or dizziness. Denied any leg swelling. Patient refused to quit alcohol and smoking. Most recent echocardiogram performed in September revealed severely impaired left ventricular systolic function with ejection fraction less than 20%. He was recently discharged from the hospital last week on Friday for similar type scenario. At that time his Lopressor was changed to nadolol. He states he 's been compliant with his medication. 12/15/2017 Patient had severely low ejection fraction patient is not in heart failure exacerbation patient has still significant wheezing on exam, although patient states it is his baseline and wanted to go home to 7 on 3 L of oxygen. Patient is not willing to quit smoking are alcohol. Patient has alcoholic cardiomyopathy patient is very high risk for readmission considering his cardio myopathy which is severe, advanced COPD continued alcohol and smoking. PHYSICAL EXAMINATION: Patient is lying in the bed comfortably, no acute distress, awake alert and oriented.. HEENT: Normocephalic. Neck is supple. Pupils reactive. Nostrils clear. Oral cavity is moist. Ears reveal no drainage. Neck reveals no JVD, carotid bruits, or thyromegaly. CHEST EXAMINATION: Trachea is central. Symmetrical expansion. Bilateral expiratory wheeze. No crackles. CARDIAC: Normal S1, S2 with no gallops. No murmurs ABDOMEN: Soft. Bowel sounds normal. No organomegaly. No abdominal bruits. Extremities: reveal no edema. No clubbing or cyanosis Neurologically awake, alert, oriented x3 with well-coordinated movements. No focal deficits noted Skin: No rash or skin lesions. Psychiatric: Coperative. Nonsuicidal Musculoskeletal: No joint swelling or deformity. Normal range of motion. Assessment and Plan Assessment: Atrial fibrillation with rapid ventricular rate. Off Cardizem drip now. Patient was given a dose of digoxin. Acute COPD exacerbation. Improved wheezing. Paroxysmal it fibrillation on anticoagulation with xarelto. Patient is also on amiodarone and Lopressor.\ Acute kidney injury with creatinine level 1.1 Severe Alcohol abuse Nicotine dependence Nonischemic cardiomyopathy ejection fraction less than 20%, chronic systolic dysfunction without any acute exacerbation Chronic CHF with systolic dysfunction Hypertension Hyperlipidemia Previous history of CVA Patient Condition at Discharge: Stable Plan - Discharge Summary Discharge Rx Participant: No New Discharge Prescriptions: New predniSONE 10 mg PO DAILY #30 tab Furosemide [Lasix] 20 mg PO BID #60 tab Continue Albuterol Sulfate [Proair Hfa] 2 puff INHALATION RT-Q6H PRN PRN Reason: Shortness Of Breath Rivaroxaban [Xarelto] 20 mg PO DAILY Ipratropium-Albuterol Nebulize [Duoneb 0.5 mg-3 mg/3 ml Soln] 3 ml INHALATION RT-QID Amiodarone [Cordarone] 400 mg PO DAILY #30 tab Pravastatin Sodium [Pravachol] 40 mg PO HS #30 tab Budesonide [Pulmicort] 1 mg INHALATION RT-BID #20 nebu Formoterol Fumarate [Perforomist] 20 mcg INHALATION RT-BID #20 nebu Magnesium Oxide [Mag-Ox] 400 mg PO TID tab Spironolactone [Aldactone] 25 mg PO DAILY tab Thiamine [Vitamin B-1] 100 mg PO BID@1200,1700 tab HYDROcodone/APAP 10-325MG [[place] 10-325] 1 tab PO Q6H PRN #10 tab PRN Reason: Pain Ipratropium [place] [Atrovent Hfa] 2 puff INHALATION RT-QID PRN PRN Reason: Shortness Of Breath Tamsulosin [Flomax] 0.4 mg PO DAILY Nadolol [Corgard] 20 mg PO BID #60 tab Lisinopril [Zestril] 2.5 mg PO DAILY #30 tab Discontinued Aspirin EC [Ecotrin Low Dose] 81 mg PO DAILY predniSONE See Taper PO DAILY #21 tab Discharge Medication List Albuterol Sulfate [Proair Hfa] 2 puff INHALATION RT-Q6H PRN 09/14/16 [History] Rivaroxaban [Xarelto] 20 mg PO DAILY 03/28/17 [History] Ipratropium-Albuterol Nebulize [Duoneb 0.5 mg-3 mg/3 ml Soln] 3 ml INHALATION RT -QID 10/14/17 [History] Amiodarone [Cordarone] 400 mg PO DAILY #30 tab 10/21/17 [Rx] Budesonide [Pulmicort] 1 mg INHALATION RT-BID #20 nebu 10/21/17 [Rx] Formoterol Fumarate [Perforomist] 20 mcg INHALATION RT-BID #20 nebu 10/21/17 [Rx ] Pravastatin Sodium [Pravachol] 40 mg PO HS #30 tab 10/21/17 [Rx] HYDROcodone/APAP 10-325MG [[place] 10-325] 1 tab PO Q6H PRN #10 tab 10/27/17 [Rx] Magnesium Oxide [Mag-Ox] 400 mg PO TID tab 10/27/17 [Rx] Spironolactone [Aldactone] 25 mg PO DAILY tab 10/27/17 [Rx] Thiamine [Vitamin B-1] 100 mg PO BID@1200,1700 tab 10/27/17 [Rx] Ipratropium [place] [Atrovent Hfa] 2 puff INHALATION RT-QID PRN 11/28/17 [ History] Tamsulosin [Flomax] 0.4 mg PO DAILY 11/28/17 [History] Lisinopril [Zestril] 2.5 mg PO DAILY #30 tab 12/10/17 [Rx] Nadolol [Corgard] 20 mg PO BID #60 tab 12/10/17 [Rx] Furosemide [Lasix] 20 mg PO BID #60 tab 12/15/17 [Rx] predniSONE 10 mg PO DAILY #30 tab 12/15/17 [Rx] Follow up Appointment(s)/Referral(s): Darrick Georges MD [Primary Care Provider] - 3 Days
[2017-12-15] MEDS ORDERED: INSULIN ASPART 100 UNIT/ML 1 ML 10 ML VIAL SQ SCH (12:30)
[2017-12-15 19:04] LABS: Hemoglobin A1C 4.8 % (4.0-6.0)
[2017-12-15] MEDS ORDERED: methylPREDNISolone SOD SUCCI 40 MG/ML 1 ML VIAL IV SCH (21:00)
[2017-12-16] MEDS ORDERED: TAMSULOSIN 0.4 MG CAP.ER.24H PO SCH (09:00)
== END 2017-12-15 15:32 | disposition home health service (06) | DRG 191 ==
LOC: EC 22:04 → 6SEL 12-14 01:04
PROVIDERS: ADMIT Internal Medicine; ATTEND Internal Medicine
DX: J44.1 Chronic obstructive pulmonary disease with (acute) exacerbation (principal); I42.6 Alcoholic cardiomyopathy; N17.9 Acute kidney failure, unspecified; I50.22 Chronic systolic (congestive) heart failure; D72.829 Elevated white blood cell count, unspecified; E11.9 Type 2 diabetes mellitus without complications; E78.5 Hyperlipidemia, unspecified; F10.20 Alcohol dependence, uncomplicated; F17.200 Nicotine dependence, unspecified, uncomplicated; I11.0 Hypertensive heart disease with heart failure; I45.10 Unspecified right bundle-branch block; I48.2 Chronic atrial fibrillation; Z79.01 Long term (current) use of anticoagulants; Z79.82 Long term (current) use of aspirin; Z79.899 Other long term (current) drug therapy; Z83.3 Family history of diabetes mellitus; Z86.73 Personal history of transient ischemic attack (TIA), and cerebral infarction without residual deficits; Z87.442 Personal history of urinary calculi; Z90.49 Acquired absence of other specified parts of digestive tract; Z88.1 Allergy status to other antibiotic agents; Z87.81 Personal history of (healed) traumatic fracture; Z87.01 Personal history of pneumonia (recurrent); Z98.42 Cataract extraction status, left eye; Z98.41 Cataract extraction status, right eye; Z89.421 Acquired absence of other right toe(s); Z71.6 Tobacco abuse counseling; Z71.41 Alcohol abuse counseling and surveillance of alcoholic
CPT/HCPCS: 36415; 71046; 80048; 80053; 82550; 82553; 83036; 83735; 83880; 84443; 84484; 85025; 85610; 85730; 87040; 93005; 94640; 94760; 96365; 96366; 96374; 99285

== ENCOUNTER 2017-12-23 20:07 | Emergency (ER) | payer MEDICARE ==
--- NOTE | 2017-12-23 20:46 | ED ---
General Adult HPI - General Chief complaint: Shortness of Breath Stated complaint: SOB Time Seen by Provider: 12/23/17 20:10 Source: patient, RN notes reviewed, old records reviewed Mode of arrival: EMS Limitations: no limitations - History of Present Illness Initial comments: Patient is a pleasant 72-year-old male presenting to the emergency department with dyspnea. Patient states he has chronic dyspnea associated with COPD. Patient states he has not had a drink of alcohol the past couple of months. No chest pain. - Related Data Home Medications Medication Instructions Recorded Confirmed Albuterol Sulfate [Proair Hfa] 2 puff INHALATION RT-Q6H PRN 09/14/16 12/14/17 Rivaroxaban [Xarelto] 20 mg PO DAILY 03/28/17 12/14/17 Ipratropium-Albuterol Nebulize 3 ml INHALATION RT-QID 10/14/17 12/14/17 [Duoneb 0.5 mg-3 mg/3 ml Soln] Ipratropium [place] [Atrovent Hfa] 2 puff INHALATION RT-QID PRN 11/28/17 Tamsulosin [Flomax] 0.4 mg PO DAILY 11/28/17 12/14/17 Previous Rx's Medication Instructions Recorded Amiodarone [Cordarone] 400 mg PO DAILY #30 tab 10/21/17 Budesonide [Pulmicort] 1 mg INHALATION RT-BID #20 nebu 10/21/17 Formoterol Fumarate [Perforomist] 20 mcg INHALATION RT-BID #20 nebu 10/21/17 Pravastatin Sodium [Pravachol] 40 mg PO HS #30 tab 10/21/17 HYDROcodone/APAP 10-325MG [[place] 1 tab PO Q6H PRN #10 tab 10/27/17 10-325] Magnesium Oxide [Mag-Ox] 400 mg PO TID tab 10/27/17 Spironolactone [Aldactone] 25 mg PO DAILY tab 10/27/17 Thiamine [Vitamin B-1] 100 mg PO BID@1200,1700 tab 10/27/17 Lisinopril [Zestril] 2.5 mg PO DAILY #30 tab 12/10/17 Nadolol [Corgard] 20 mg PO BID #60 tab 12/10/17 Furosemide [Lasix] 20 mg PO BID #60 tab 12/15/17 predniSONE 10 mg PO DAILY #30 tab 12/15/17 Allergies Allergy/AdvReac Type Severity Reaction Status Date / Time cephalexin monohydrate Allergy Rash/Hives Verified 12/14/17 12:17 [From [facility], [facility]] Review of Systems ROS Statement: Those systems with pertinent positive or pertinent negative responses have been documented in the HPI. ROS Other: All systems not noted in ROS Statement are negative. Constitutional: Denies: fever Eyes: Denies: eye pain ENT: Denies: ear pain Respiratory: Reports: dyspnea. Denies: cough Cardiovascular: Denies: chest pain Endocrine: Denies: fatigue Gastrointestinal: Denies: vomiting Genitourinary: Denies: dysuria Musculoskeletal: Reports: back pain (Chronic lower back pain, unchanged) Skin: Denies: rash Neurological: Denies: weakness 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%, history cervical and lumbar spondylosis, carpal tunnel disease, paroxysmal atrial fibrillation, previous hospitalization for alcohol intoxication and altered mentation and previous history of fall with pulmonary contusion and traumatic right-sided fractures, history of delirium tremens, chronic atrial fibrillation, hypertension, hyperlipidemia, previous bouts of pneumonia, previous hospital physician for acute alcohol intoxication, kidney stones, cataracts, degenerative arthritis History of Any Multi-Drug Resistant Organisms: None Reported Past Surgical History: Back Surgery, Hernia Repair Additional Past Surgical History / Comment(s): right shoulder surgery, bilateral cataract surgery, umbilical hernia surgery, kidney stones removal, hammer toe surgery X3 with subsequent amputation of the second toe on right foot , pain injections through neurology, colonoscopy Past Anesthesia/Blood Transfusion Reactions: No Reported Reaction Past Psychological History: No Psychological Hx Reported Smoking Status: Current every day smoker Past Alcohol Use History: Daily Past Drug Use History: None Reported - Past Family History Father Family Medical History: Diabetes Mellitus Mother History Unknown: Yes Additional Family Medical History / Comment(s): 2001 General Exam Limitations: no limitations General appearance: alert, in no apparent distress Head exam: Present: atraumatic Eye exam: Present: normal appearance ENT exam: Present: normal oropharynx Neck exam: Present: normal inspection Respiratory exam: Present: wheezes Cardiovascular Exam: Present: tachycardia, irregular rhythm GI/Abdominal exam: Present: soft. Absent: tenderness Extremities exam: Present: normal inspection. Absent: pedal edema, calf tenderness Back exam: Present: normal inspection Neurological exam: Present: alert Psychiatric exam: Present: normal affect, normal mood Skin exam: Present: normal color Course Vital Signs 12/23/17 12/23/17 12/23/17 20:11 21:11 21:19 Pulse Rate 121 H 113 H 107 H Respiratory 17 18 18 Rate Blood Pressure 155/77 O2 Sat by Pulse 99 Oximetry 12/23/17 12/23/17 12/23/17 21:52 22:31 22:41 Pulse Rate 89 94 101 H Respiratory 16 18 18 Rate Blood Pressure 90/53 O2 Sat by Pulse 100 Oximetry 12/23/17 22:50 Pulse Rate 95 Respiratory 19 Rate Blood Pressure 92/51 O2 Sat by Pulse 100 Oximetry EKG Findings - EKG Comments: EKG Findings:: Irregular narrow complex rhythm at 112. First-degree AV block SD of 2:30. QRS 118. QT 328. QTC 447. Left axis. Low QRS voltage. Right bundle branch block, incomplete. T-wave inversion V1 through V5. Medical Decision Making - Medical Decision Making Patient reevaluated and feels better following 2 nebulizer treatments. Patient still has mild wheezing. Patient does feel comfortable with discharge home. Prior blood pressures reviewed. - Lab Data Result diagrams: 12/23/17 20:24 12/23/17 20:24 Lab Results 12/23/17 12/23/17 12/23/17 Range/Units 20:24 20:24 20:24 WBC 11.6 H (3.8-10.6) k/uL RBC 4.09 L (4.30-5.90) m/uL Hgb 11.1 L (13.0-17.5) gm/dL Hct 36.4 L (39.0-53.0) % MCV 88.9 (80.0-100.0) fL MCH 27.1 (25.0-35.0) pg MCHC 30.4 L (31.0-37.0) g/dL RDW 17.0 H (11.5-15.5) % Plt Count 213 (150-450) k/uL Neutrophils % 78 % Lymphocytes % 14 % Monocytes % 6 % Eosinophils % 1 % Basophils % 0 % Neutrophils # 9.1 H (1.3-7.7) k/uL Lymphocytes # 1.6 (1.0-4.8) k/uL Monocytes # 0.7 (0-1.0) k/uL Eosinophils # 0.1 (0-0.7) k/uL Basophils # 0.0 (0-0.2) k/uL Hypochromasia Marked Anisocytosis Slight PT (9.0-12.0) sec INR (<1.2) APTT (22.0-30.0) sec Sodium 138 (137-145) mmol/L Potassium 4.4 (3.5-5.1) mmol/L Chloride 98 (98-107) mmol/L Carbon Dioxide 32 H (22-30) mmol/L Anion Gap 8 mmol/L BUN 29 H (9-20) mg/dL Creatinine 1.40 H (0.66-1.25) mg/dL Est GFR (CKD-EPI)AfAm 58 (>60 ml/min/1.73 sqM) Est GFR (CKD-EPI)NonAf 50 (>60 ml/min/1.73 sqM) Glucose 93 (74-99) mg/dL Calcium 8.5 (8.4-10.2) mg/dL Total Bilirubin 0.9 (0.2-1.3) mg/dL AST 20 (17-59) U/L ALT 38 (21-72) U/L Alkaline Phosphatase 82 (38-126) U/L Total Creatine Kinase <20 L (55-170) U/L CK-MB (CK-2) 0.5 (0.0-2.4) ng/mL CK-MB (CK-2) Rel Index Troponin I 0.017 (0.000-0.034) ng/mL NT-Pro-B Natriuret Pep pg/mL Total Protein 5.6 L (6.3-8.2) g/dL Albumin 3.2 L (3.5-5.0) g/dL Amylase 34 (30-110) U/L Lipase 39 (23-300) U/L Serum Alcohol <10 mg/dL 12/23/17 12/23/17 Range/Units 20:24 20:24 WBC (3.8-10.6) k/uL RBC (4.30-5.90) m/uL Hgb (13.0-17.5) gm/dL Hct (39.0-53.0) % MCV (80.0-100.0) fL MCH (25.0-35.0) pg MCHC (31.0-37.0) g/dL RDW (11.5-15.5) % Plt Count (150-450) k/uL Neutrophils % % Lymphocytes % % Monocytes % % Eosinophils % % Basophils % % Neutrophils # (1.3-7.7) k/uL Lymphocytes # (1.0-4.8) k/uL Monocytes # (0-1.0) k/uL Eosinophils # (0-0.7) k/uL Basophils # (0-0.2) k/uL Hypochromasia Anisocytosis PT 9.9 (9.0-12.0) sec INR 1.0 (<1.2) APTT 20.9 L (22.0-30.0) sec Sodium (137-145) mmol/L Potassium (3.5-5.1) mmol/L Chloride (98-107) mmol/L Carbon Dioxide (22-30) mmol/L Anion Gap mmol/L BUN (9-20) mg/dL Creatinine (0.66-1.25) mg/dL Est GFR (CKD-EPI)AfAm (>60 ml/min/1.73 sqM) Est GFR (CKD-EPI)NonAf (>60 ml/min/1.73 sqM) Glucose (74-99) mg/dL Calcium (8.4-10.2) mg/dL Total Bilirubin (0.2-1.3) mg/dL AST (17-59) U/L ALT (21-72) U/L Alkaline Phosphatase (38-126) U/L Total Creatine Kinase (55-170) U/L CK-MB (CK-2) (0.0-2.4) ng/mL CK-MB (CK-2) Rel Index Troponin I (0.000-0.034) ng/mL NT-Pro-B Natriuret Pep 1010 pg/mL Total Protein (6.3-8.2) g/dL Albumin (3.5-5.0) g/dL Amylase (30-110) U/L Lipase (23-300) U/L Serum Alcohol mg/dL - Radiology Data Radiology results: image reviewed (Chest x-ray shows no acute process) Disposition Clinical Impression: COPD exacerbation Disposition: HOME SELF-CARE Condition: Stable Instructions: COPD (Chronic Obstructive Pulmonary Disease) (ED) Additional Instructions: Please follow-up with primary care physician in the next day or 2 for recheck. Return for difficulty breathing, fevers, worsening or changing symptoms or other concerns. Is patient prescribed a controlled substance at d/c from ED?: No Referrals: Darrick Georges MD [Primary Care Provider] - 1-2 days Time of Disposition: 23:16
[2017-12-23] MEDS ORDERED: IPRATROPIUM-ALBUTEROL 3 ML NEB INHALATION STA ×2 (20:54→22:16)
[2017-12-23] MEDS ORDERED: methylPREDNISolone SOD SUCCI 125 MG/2 ML VIAL IV STA (20:54)
[2017-12-23 21:38] LABS: Anisocytosis Slight; Basophils % (A) 0 %; Eosinophils # (A) 0.1 k/uL (0-0.7); Eosinophils % (A) 1 %; HCT 36.4 % (39.0-53.0); HGB 11.1 gm/dL (13.0-17.5); Hypochromasia Marked; Lymphocytes # (A) 1.6 k/uL (1.0-4.8); Lymphocytes % (A) 14 %; MCH 27.1 pg (25.0-35.0); MCHC 30.4 g/dL (31.0-37.0); MCV 88.9 fL (80.0-100.0); Mean Platelet Volume 7.1; Monocytes # (A) 0.7 k/uL (0-1.0); Monocytes % (A) 6 %; Neutrophils # (A) 9.1 k/uL (1.3-7.7); Neutrophils % (A) 78 %; Platelet Count 213 k/uL (150-450); RBC 4.09 m/uL (4.30-5.90); WBC 11.6 k/uL (3.8-10.6)
[2017-12-23 21:47] LABS: ALT 38 U/L (21-72); AST 20 U/L (17-59); Albumin 3.2 g/dL (3.5-5.0); Alcohol <10 mg/dL; Alkaline Phosphatase 82 U/L (38-126); Amylase 34 U/L (30-110); Anion Gap 8 mmol/L; Blood Urea Nitrogen 29 mg/dL (9-20); Calcium 8.5 mg/dL (8.4-10.2); Carbon Dioxide 32 mmol/L (22-30); Chloride 98 mmol/L (98-107); Glucose 93 mg/dL (74-99); Lipase 39 U/L (23-300); Potassium 4.4 mmol/L (3.5-5.1); Sodium 138 mmol/L (137-145); Total Bilirubin 0.9 mg/dL (0.2-1.3); Total Protein 5.6 g/dL (6.3-8.2)
[2017-12-23 21:52] LABS: Creatine Kinase <20 U/L (55-170); Prothrombin Time 9.9 sec (9.0-12.0)
--- NOTE | 2017-12-23 21:55 | XR ---
EXAMINATION TYPE: XR chest 2V DATE OF EXAM: 12/23/2017 COMPARISON: 12/13/2017 HISTORY: 72-year-old male difficulty breathing, shortness of breath TECHNIQUE: AP and lateral views FINDINGS: The heart is upper limits of normal in size. Aorta and pulmonary vasculature within normal limits. No consolidation or pleural effusion seen. Reverse for a total shoulder arthroplasty partially seen. IMPRESSION: Stable exam without acute cardiopulmonary process.
[2017-12-23 22:05] LABS: Creatine Kinase MB 0.5 ng/mL (0.0-2.4); Troponin I 0.017 ng/mL (0.000-0.034)
[2017-12-23 22:10] LABS: Partial Thromboplastin Time 20.9 sec (22.0-30.0)
[2017-12-23] MEDS ORDERED: HYDROcodone/APAP 5-325MG 1 EACH TAB PO STA (22:17)
[2017-12-23 23:40] VITALS: RESP 16; TEMP 98.3
[2017-12-23 23:50] VITALS: BP 93/67; PULSE 97
== END 2017-12-24 01:55 | disposition home or self-care (01) ==
LOC: EC 20:07
DX: J44.1 Chronic obstructive pulmonary disease with (acute) exacerbation (principal); I48.0 Paroxysmal atrial fibrillation; I48.2 Chronic atrial fibrillation; F17.200 Nicotine dependence, unspecified, uncomplicated; Z79.01 Long term (current) use of anticoagulants; Z79.899 Other long term (current) drug therapy; Z88.1 Allergy status to other antibiotic agents; Z86.73 Personal history of transient ischemic attack (TIA), and cerebral infarction without residual deficits
CPT/HCPCS: 36415; 94640 ×2; 83880; 80053; 82150; 82550; 82553; 83690; 84484; 85025; 85610; 85730; 71046; 99285; 96374; G0480; J2930; 80320

== ENCOUNTER 2018-01-12 15:05 | Inpatient (IN) | payer MEDICARE ==
[2018-01-12 15:27] LABS: Glucose,Whole Blood 90 mg/dL (75-99)
[2018-01-12] MEDS ORDERED: SODIUM CHLORIDE 0.9% 1,000 ML IV ONE (15:29)
--- NOTE | 2018-01-12 16:18 | ED ---
General Adult HPI - General Chief complaint: Fall Stated complaint: Hypotension Source: patient, EMS Mode of arrival: ambulatory Limitations: no limitations - History of Present Illness Initial comments: Dictation was produced using [employer] dictation software. please excuse any grammatical, word or spelling errors. Chief Complaint: 72-year-old male brought in by EMS for altered mental status and debility History of Present Illness: Patient is a 72-year-old male brought in by EMS for altered mental status. Patient had allegedly had not been seen. He is supposedly has a mobile qa tester. Patient is unreliable historian at this time. According to EMS neighbor called EMS for lift assist. EMS was on scene and noted patient was on the ground. It is unknown how long she was on the ground. Patient has extensive past medical history has been to our emergency department on multiple occasions. Per EMS patient was hypotensive with systolic in the 50s. Most recent H&P was reviewed showing the patient has paroxysmal atrial fibrillation on anticoagulation, COPD, chronic alcohol use, hyperlipidemia, cardiomyopathy with EF of 20% Unable to obtain ROS secondary to mental status - Related Data Home Medications Medication Instructions Recorded Confirmed Albuterol Sulfate [Proair Hfa] 2 puff INHALATION RT-Q6H PRN 09/14/16 01/12/18 Rivaroxaban [Xarelto] 20 mg PO DAILY 03/28/17 01/12/18 Ipratropium-Albuterol Nebulize 3 ml INHALATION RT-QID 10/14/17 01/12/18 [Duoneb 0.5 mg-3 mg/3 ml Soln] Ipratropium [place] [Atrovent Hfa] 2 puff INHALATION RT-QID PRN 11/28/17 Tamsulosin [Flomax] 0.4 mg PO HS 11/28/17 01/12/18 Diphenox-Atrop 2.5-0.025 mg 1 tab PO BID 01/12/18 01/12/18 [Lomotil] Lisinopril [Zestril] 2.5 mg PO DAILY 01/12/18 01/12/18 Potassium Chloride ER [K-Dur 20] 20 meq PO DAILY 01/12/18 01/12/18 Previous Rx's Medication Instructions Recorded Amiodarone [Cordarone] 400 mg PO DAILY #30 tab 10/21/17 Budesonide [Pulmicort] 1 mg INHALATION RT-BID #20 nebu 10/21/17 Formoterol Fumarate [Perforomist] 20 mcg INHALATION RT-BID #20 nebu 10/21/17 Pravastatin Sodium [Pravachol] 40 mg PO HS #30 tab 10/21/17 Magnesium Oxide [Mag-Ox] 400 mg PO TID tab 10/27/17 Spironolactone [Aldactone] 25 mg PO DAILY tab 10/27/17 Nadolol [Corgard] 20 mg PO BID #60 tab 12/10/17 Furosemide [Lasix] 20 mg PO BID #60 tab 12/15/17 Allergies Allergy/AdvReac Type Severity Reaction Status Date / Time cephalexin monohydrate Allergy Rash/Hives Verified 01/12/18 16:26 [From [facility] [facility]io] Review of Systems ROS Statement: Those systems with pertinent positive or pertinent negative responses have been documented in the HPI. ROS Other: All systems not noted in ROS Statement are negative. 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%, history cervical and lumbar spondylosis, carpal tunnel disease, paroxysmal atrial fibrillation, previous hospitalization for alcohol intoxication and altered mentation and previous history of fall with pulmonary contusion and traumatic right-sided fractures, history of delirium tremens, chronic atrial fibrillation, hypertension, hyperlipidemia, previous bouts of pneumonia, previous hospital physician for acute alcohol intoxication, kidney stones, cataracts, degenerative arthritis History of Any Multi-Drug Resistant Organisms: None Reported Past Surgical History: Back Surgery, Hernia Repair Additional Past Surgical History / Comment(s): right shoulder surgery, bilateral cataract surgery, umbilical hernia surgery, kidney stones removal, hammer toe surgery X3 with subsequent amputation of the second toe on right foot , pain injections through neurology, colonoscopy Past Anesthesia/Blood Transfusion Reactions: No Reported Reaction Past Psychological History: No Psychological Hx Reported Smoking Status: Current every day smoker Past Alcohol Use History: Daily Past Drug Use History: None Reported - Past Family History Father Family Medical History: Diabetes Mellitus Mother History Unknown: Yes Additional Family Medical History / Comment(s): 2001 General Exam - General Exam Comments Initial Comments: PHYSICAL EXAM: General Impression: Alert and oriented x3, acute distress, groaning however he is able to state his name and date and year HEENT: Normocephalic atraumatic, extra-ocular movements intact, pupils equal and reactive to light bilaterally, dry mucous membranes Cardiovascular: Heart regular rate and rhythm, S1&S2 audible, no murmurs, rubs or gallops Chest: Bilateral lung rhonchi Abdomen: Bowel sounds present, abdomen soft, diffuse abdominal tenderness, non- distended, no organomegaly Musculoskeletal: Weak pulses, cachexia Motor: Moves all extremities grossly Neurological: CN II-XII grossly intact, no focal motor or sensory deficits noted Skin: Small decubitus ulcer over the sacrum Limitations: no limitations Course Vital Signs 01/12/18 01/12/18 01/12/18 15:07 15:34 15:49 Temperature 97 F L 97 F L Pulse Rate 91 88 Respiratory 18 24 Rate Blood Pressure 79/38 O2 Sat by Pulse 97 Oximetry 01/12/18 01/12/18 01/12/18 16:00 16:38 16:59 Temperature Pulse Rate 90 94 Respiratory 22 20 Rate Blood Pressure 84/39 84/42 70/36 O2 Sat by Pulse 95 95 Oximetry 01/12/18 01/12/18 01/12/18 17:40 18:16 18:19 Temperature 97.4 F L Pulse Rate 95 87 89 Respiratory 18 Rate Blood Pressure 101/52 82/46 99/56 O2 Sat by Pulse 100 97 100 Oximetry 01/12/18 18:34 Temperature Pulse Rate 84 Respiratory 18 Rate Blood Pressure 110/58 O2 Sat by Pulse 100 Oximetry Procedures - Central Line Placement Right Femoral Consent Obtained: verbal consent Time Out Performed: Yes Patient Placed on Monitor/Pulse Ox: Yes MD Prep: mask, gown, gloves Central Line Prep: Povidone-Iodine 1% Local Anesthesia Used: Lidocaine 2%, with Epi Amount of Anesthesia Used (mls): 2 Ultrasound Used for Placement: Yes Central Line Lumen Inserted: triple Bloods Obtained for Lab: No Central Line Position: good blood return, sutured in place with 3-0 nylon Dressing Applied: Tegaderm Patient Tolerated Procedure: well Medical Decision Making - Medical Decision Making ED course: 72-year-old male found down at his house. Patient was extremely hypotensive per EMS. Upon arrival did show low blood pressure with systolics have unmeasurable with the machine. Manual blood pressure showed hypotension. Laboratory evaluation obtained. Leukocytosis 13.7. Hemoglobin 10.7 which is at around his baseline. Platelet count is 293. Coag panel is unremarkable. Metabolic panel shows acute kidney injury with a creatinine of 6.9 and a BUN of 62. Troponin is 0.069 likely secondary to acute kidney injury. Urinalysis is consistent with urinary tract infection. Alcohol is negative. Computed tomography scan of the head, abdomen and pelvis and chest x-ray shows no acute processes. Patient's symptoms likely secondary to severe dehydration. Central line was placed. Arterial line was placed. Patient was given 30 mL per KG bolus with very mild improvement of blood pressure. Central line was placed and patient started on pressors. Patient was initially started on 50 g per KG per minute however was weaned down. Patient was reevaluated with improvement of mentation. Patient be admitted to the intensive care unit for further intervention. EKG interpretation: Ventricular rate 92 atrial fibrillation, QRS 146, QTC 526. No NV prolongation, no QTC prolongation, no ST or T-wave changes noted. Overall, this EKG is unremarkable - Lab Data Result diagrams: 01/12/18 16:03 01/12/18 16:03 Lab Results 01/12/18 01/12/18 01/12/18 Range/Units 15:14 16:03 16:03 WBC 13.7 H (3.8-10.6) k/uL RBC 4.11 L (4.30-5.90) m/uL Hgb 10.7 L (13.0-17.5) gm/dL Hct 35.9 L (39.0-53.0) % MCV 87.4 (80.0-100.0) fL MCH 26.1 (25.0-35.0) pg MCHC 29.8 L (31.0-37.0) g/dL RDW 16.8 H (11.5-15.5) % Plt Count 293 (150-450) k/uL Neutrophils % 76 % Lymphocytes % 18 % Monocytes % 5 % Eosinophils % 1 % Basophils % 0 % Neutrophils # 10.4 H (1.3-7.7) k/uL Lymphocytes # 2.4 (1.0-4.8) k/uL Monocytes # 0.7 (0-1.0) k/uL Eosinophils # 0.1 (0-0.7) k/uL Basophils # 0.0 (0-0.2) k/uL Hypochromasia Marked Anisocytosis Slight PT (9.0-12.0) sec INR (<1.2) APTT (22.0-30.0) sec Sodium 133 L (137-145) mmol/L Potassium 4.3 (3.5-5.1) mmol/L Chloride 92 L (98-107) mmol/L Carbon Dioxide 26 (22-30) mmol/L Anion Gap 15 mmol/L BUN 62 H (9-20) mg/dL Creatinine 6.99 H (0.66-1.25) mg/dL Est GFR (CKD-EPI)AfAm 8 (>60 ml/min/1.73 sqM) Est GFR (CKD-EPI)NonAf 7 (>60 ml/min/1.73 sqM) Glucose 81 (74-99) mg/dL POC Glucose (mg/dL) 90 (75-99) mg/dL POC Glu Director Public Service ID [place] Plasma Lactic Acid Elvis (0.7-2.0) mmol/L Calcium 7.9 L (8.4-10.2) mg/dL Magnesium 2.5 H (1.6-2.3) mg/dL Total Bilirubin 0.7 (0.2-1.3) mg/dL AST 31 (17-59) U/L ALT 28 (21-72) U/L Alkaline Phosphatase 107 (38-126) U/L Creatine Kinase 407 H (55-170) U/L Troponin I (0.000-0.034) ng/mL Total Protein 5.4 L (6.3-8.2) g/dL Albumin 2.9 L (3.5-5.0) g/dL Urine Color Urine Appearance (Clear) Urine pH (5.0-8.0) Ur Specific [place] (1.001-1.035) Urine Protein (Negative) Urine Glucose (UA) (Negative) Urine Ketones (Negative) Urine Blood (Negative) Urine Nitrite (Negative) Urine Bilirubin (Negative) Urine Urobilinogen (<2.0) mg/dL Ur Leukocyte Esterase (Negative) Urine RBC (0-5) /hpf Urine WBC (0-5) /hpf Ur Squamous Epith Cells (0-4) /hpf Urine Bacteria (None) /hpf Hyaline Casts (0-2) /lpf Urine Mucus (None) /hpf Serum Alcohol <10 mg/dL 01/12/18 01/12/18 01/12/18 Range/Units 16:03 16:03 16:03 WBC (3.8-10.6) k/uL RBC (4.30-5.90) m/uL Hgb (13.0-17.5) gm/dL Hct (39.0-53.0) % MCV (80.0-100.0) fL MCH (25.0-35.0) pg MCHC (31.0-37.0) g/dL RDW (11.5-15.5) % Plt Count (150-450) k/uL Neutrophils % % Lymphocytes % % Monocytes % % Eosinophils % % Basophils % % Neutrophils # (1.3-7.7) k/uL Lymphocytes # (1.0-4.8) k/uL Monocytes # (0-1.0) k/uL Eosinophils # (0-0.7) k/uL Basophils # (0-0.2) k/uL Hypochromasia Anisocytosis PT 9.9 (9.0-12.0) sec INR 1.0 (<1.2) APTT 25.1 (22.0-30.0) sec Sodium (137-145) mmol/L Potassium (3.5-5.1) mmol/L Chloride (98-107) mmol/L Carbon Dioxide (22-30) mmol/L Anion Gap mmol/L BUN (9-20) mg/dL Creatinine (0.66-1.25) mg/dL Est GFR (CKD-EPI)AfAm (>60 ml/min/1.73 sqM) Est GFR (CKD-EPI)NonAf (>60 ml/min/1.73 sqM) Glucose (74-99) mg/dL POC Glucose (mg/dL) (75-99) mg/dL POC Glu Director Public Service ID Plasma Lactic Acid Elvis 1.7 (0.7-2.0) mmol/L Calcium (8.4-10.2) mg/dL Magnesium (1.6-2.3) mg/dL Total Bilirubin (0.2-1.3) mg/dL AST (17-59) U/L ALT (21-72) U/L Alkaline Phosphatase (38-126) U/L Creatine Kinase (55-170) U/L Troponin I 0.069 H* (0.000-0.034) ng/mL Total Protein (6.3-8.2) g/dL Albumin (3.5-5.0) g/dL Urine Color Urine Appearance (Clear) Urine pH (5.0-8.0) Ur Specific [place] (1.001-1.035) Urine Protein (Negative) Urine Glucose (UA) (Negative) Urine Ketones (Negative) Urine Blood (Negative) Urine Nitrite (Negative) Urine Bilirubin (Negative) Urine Urobilinogen (<2.0) mg/dL Ur Leukocyte Esterase (Negative) Urine RBC (0-5) /hpf Urine WBC (0-5) /hpf Ur Squamous Epith Cells (0-4) /hpf Urine Bacteria (None) /hpf Hyaline Casts (0-2) /lpf Urine Mucus (None) /hpf Serum Alcohol mg/dL 01/12/18 Range/Units 16:53 WBC (3.8-10.6) k/uL RBC (4.30-5.90) m/uL Hgb (13.0-17.5) gm/dL Hct (39.0-53.0) % MCV (80.0-100.0) fL MCH (25.0-35.0) pg MCHC (31.0-37.0) g/dL RDW (11.5-15.5) % Plt Count (150-450) k/uL Neutrophils % % Lymphocytes % % Monocytes % % Eosinophils % % Basophils % % Neutrophils # (1.3-7.7) k/uL Lymphocytes # (1.0-4.8) k/uL Monocytes # (0-1.0) k/uL Eosinophils # (0-0.7) k/uL Basophils # (0-0.2) k/uL Hypochromasia Anisocytosis PT (9.0-12.0) sec INR (<1.2) APTT (22.0-30.0) sec Sodium (137-145) mmol/L Potassium (3.5-5.1) mmol/L Chloride (98-107) mmol/L Carbon Dioxide (22-30) mmol/L Anion Gap mmol/L BUN (9-20) mg/dL Creatinine (0.66-1.25) mg/dL Est GFR (CKD-EPI)AfAm (>60 ml/min/1.73 sqM) Est GFR (CKD-EPI)NonAf (>60 ml/min/1.73 sqM) Glucose (74-99) mg/dL POC Glucose (mg/dL) (75-99) mg/dL POC Glu Director Public Service ID Plasma Lactic Acid Elvis (0.7-2.0) mmol/L Calcium (8.4-10.2) mg/dL Magnesium (1.6-2.3) mg/dL Total Bilirubin (0.2-1.3) mg/dL AST (17-59) U/L ALT (21-72) U/L Alkaline Phosphatase (38-126) U/L Creatine Kinase (55-170) U/L Troponin I (0.000-0.034) ng/mL Total Protein (6.3-8.2) g/dL Albumin (3.5-5.0) g/dL Urine Color Yellow Urine Appearance Cloudy (Clear) Urine pH 5.0 (5.0-8.0) Ur Specific [place] 1.018 (1.001-1.035) Urine Protein 1+ H (Negative) Urine Glucose (UA) Negative (Negative) Urine Ketones Negative (Negative) Urine Blood Small H (Negative) Urine Nitrite Negative (Negative) Urine Bilirubin Negative (Negative) Urine Urobilinogen <2.0 (<2.0) mg/dL Ur Leukocyte Esterase Moderate H (Negative) Urine RBC 5 (0-5) /hpf Urine WBC 16 H (0-5) /hpf Ur Squamous Epith Cells 1 (0-4) /hpf Urine Bacteria Occasional H (None) /hpf Hyaline Casts 16 H (0-2) /lpf Urine Mucus Rare H (None) /hpf Serum Alcohol mg/dL Critical Care Time Critical Care Time: Yes Total Critical Care Time: 31 Disposition Clinical Impression: Shock circulatory, Acute kidney failure, Urinary tract infection Disposition: ADMITTED IP TO THIS [facility] Condition: Critical Referrals: Darrick Georges MD [Primary Care Provider] - 1-2 days Decision Time: 18:58
[2018-01-12 16:27] LABS: Anisocytosis Slight; Basophils % (A) 0 %; Eosinophils # (A) 0.1 k/uL (0-0.7); Eosinophils % (A) 1 %; HCT 35.9 % (39.0-53.0); HGB 10.7 gm/dL (13.0-17.5); Hypochromasia Marked; Lymphocytes # (A) 2.4 k/uL (1.0-4.8); Lymphocytes % (A) 18 %; MCH 26.1 pg (25.0-35.0); MCHC 29.8 g/dL (31.0-37.0); MCV 87.4 fL (80.0-100.0); Mean Platelet Volume 7.7; Monocytes # (A) 0.7 k/uL (0-1.0); Monocytes % (A) 5 %; Neutrophils # (A) 10.4 k/uL (1.3-7.7); Neutrophils % (A) 76 %; Platelet Count 293 k/uL (150-450); RBC 4.11 m/uL (4.30-5.90); RDW 16.8 % (11.5-15.5); WBC 13.7 k/uL (3.8-10.6)
[2018-01-12 16:31] LABS: ALT 28 U/L (21-72); AST 31 U/L (17-59); Albumin 2.9 g/dL (3.5-5.0); Alcohol <10 mg/dL; Alkaline Phosphatase 107 U/L (38-126); Anion Gap 15 mmol/L; Blood Urea Nitrogen 62 mg/dL (9-20); Calcium 7.9 mg/dL (8.4-10.2); Carbon Dioxide 26 mmol/L (22-30); Chloride 92 mmol/L (98-107); Creatine Kinase 407 U/L (55-170); Glucose 81 mg/dL (74-99); Magnesium 2.5 mg/dL (1.6-2.3); Potassium 4.3 mmol/L (3.5-5.1); Sodium 133 mmol/L (137-145); Total Bilirubin 0.7 mg/dL (0.2-1.3); Total Protein 5.4 g/dL (6.3-8.2)
[2018-01-12 16:33] LABS: Partial Thromboplastin Time 25.1 sec (22.0-30.0); Prothrombin Time 9.9 sec (9.0-12.0)
[2018-01-12] MEDS ORDERED: SODIUM CHLORIDE 0.9% 1,000 ML IV STA (16:47)
[2018-01-12] MEDS ORDERED: PIPERACILLIN-TAZOBACTAM 3.375 GM in DEXTROSE/WATER 1 50ML.BAG IVPB STA (17:09)
[2018-01-12] MEDS ORDERED: VANCOMYCIN 1,000 MG in SODIUM CHLORIDE 0.9% 250 ML IVPB STA (17:09)
[2018-01-12 17:15] LABS: Appearance,Urine Cloudy (Clear); Bacteria,Urine Occasional /hpf; Bilirubin,Urine Negative (Negative); Blood,Urine Small (Negative); Color,Urine Yellow; Glucose,Urine (UA) Negative (Negative); Hyaline Casts,Urine 16 /lpf (0-2); Ketones,Urine Negative (Negative); Leukocyte Esterase,Urine Moderate (Negative); Mucus,Urine Rare /hpf; Nitrite,Urine Negative (Negative); Protein,Urine 1+ (Negative); RBC,Urine 5 /hpf (0-5); Specific Gravity,Urine 1.018 (1.001-1.035); Squamous Epithelial Cell,Urine 1 /hpf (0-4); Urobilinogen,Urine <2.0 mg/dL (<2.0); WBC,Urine 16 /hpf (0-5)
[2018-01-12] MEDS: NOREPINEPHRINE 16 MG in SODIUM CHLORIDE 0.9% 250 ML IV SCH ×2 (17:21→20:15)
--- NOTE | 2018-01-12 18:07 | XR ---
EXAMINATION: XR chest 1V portable DATE AND TIME: 01/12/2018 5:19 PM CLINICAL INDICATION: ams TECHNIQUE: AP upright portable COMPARISON: 12/15/2017 FINDINGS: The lungs are clear. Emphysematous changes are redemonstrated, prominent. The pleural spaces are negative. The cardiac silhouette is not enlarged. The remainder of the mediastinal silhouette is unremarkable. The skeletal structures and soft tissues are negative for acute findings. IMPRESSION: NO ACUTE PROCESS.
--- NOTE | 2018-01-12 18:45 | CT ---
EXAMINATION: CT brain wo con DATE AND TIME: 01/12/2018 6:17 PM CLINICAL INDICATION: Pain Fall. Hypotension. TECHNIQUE: Standard departmental protocol. 873.8 COMPARISON: CT 05/20/2017 FINDINGS: The calvarium is intact. There is no intracranial hemorrhage. There is no intracranial mass or mass effect. No definite new intra-axial or extra-axial attenuation defect. The previously seen right middle cereb ral arterial territory zones of encephalomalacia in the right temporal and parietal lobes is redemons trated, consistent with remote infarction. The paranasal sinuses, middle ear cavities, and mastoid sinus air cells are clear. The orbits are unr emarkable. IMPRESSION: NO ACUTE PROCESS.
--- NOTE | 2018-01-12 18:52 | CT ---
EXAMINATION TYPE: CT abdomen pelvis wo con DATE OF EXAM: 01/12/2018 COMPARISON: 01/16/2017 CT HISTORY: Fall. Hypotension. CT DLP: 449.9 mGycm Automated exposure control for dose reduction was used. TECHNIQUE: Helical acquisition of images was performed from the lung bases through the pelvis. FINDINGS: Within the limits of noncontrast CT the following findings are noted: LUNG BASES: No significant abnormality is appreciated. LIVER/GB: No significant abnormality is appreciated. PANCREAS: No significant abnormality is seen. SPLEEN: No significant abnormality is seen. ADRENALS: No significant abnormality is seen. KIDNEYS: No significant abnormality is seen. FREE AIR: No free air is visualized RETROPERITONEAL ADENOPATHY: None visualized REPRODUCTIVE ORGANS: No significant abnormality is seen URINARY BLADDER: No significant abnormality is seen. PELVIC ADENOPATHY: None visualized. OSSEOUS STRUCTURES: No evidence of fracture or hemorrhage. BOWEL: No significant abnormality is seen. IMPRESSION: NO DEFINITE ACUTE PROCESS, CT WITHOUT CONTRAST.
[2018-01-12] MEDS ORDERED: NALOXONE 0.4 MG/ML 1 ML VIAL IV PRN (18:58)
[2018-01-12] MEDS ORDERED: ACETAMINOPHEN IV (For NPO) 1,000 MG in SALINE 1 100ML.BAG IVPB ONE (18:58)
[2018-01-12] MEDS ORDERED: ARTIFICIAL TEARS-HYPROMELLOSE DROPS 15 ML BTL BOTH EYES PRN (18:58)
[2018-01-12 20:10] LABS: Glucose,Whole Blood 88 mg/dL (75-99)
[2018-01-12] MEDS: SODIUM CHLORIDE 0.9% 1,000 ML IV SCH (20:15)
[2018-01-12] MEDS ORDERED: NON-FORMULARY DRUG (Ipratropium Bromide [Atrovent Hfa] 2 PUFF) INHALATION PRN (20:37)
[2018-01-12] MEDS ORDERED: TEMAZEPAM 15 MG CAP PO PRN (20:39)
[2018-01-12] MEDS: TAMSULOSIN 0.4 MG CAP.ER.24H PO SCH (21:08)
[2018-01-12] MEDS: MAGNESIUM OXIDE 400 MG TAB PO SCH (21:08)
[2018-01-12] MEDS: DIPHENOX-ATROP 2.5-0.025 MG 1 EACH TAB PO SCH (21:08)
[2018-01-12] MEDS: NADOLOL 20 MG TAB PO SCH (21:09)
--- NOTE | 2018-01-12 21:12 | HP ---
HISTORY AND PHYSICAL DATE OF SERVICE: 01/12/2018 CHIEF COMPLAINTS: Unresponsive. HISTORY OF PRESENT ILLNESS: This 72-year-old gentleman with a past history of chest pain, CHF, COPD, CVA, hypertension, hyperlipidemia was recently admitted to [facility] with atrial fibrillation with fast ventricular rate. Patient also had COPD acute exacerbation, apparently living by himself and patient apparently fell in the bathroom, was unable to get up and patient was supposed to have chaplaincy and legal guardian. The neighbor apparently called EMS and EMS noted the patient was on the ground at least for several hours and the patient is taken to [facility] admitted for further evaluation and treatment. Patient was found to be severely hypotensive and IV fluid bolus was given and the lab drake, the patient also had elevated WBC and creatinine is elevated to 6.9, indicating severe acute renal failure. The previous creatinine was 1.4. The troponin was 0.06. The patient admitted for further evaluation. Patient also had evidence of UTI also. There is no history any headache. No chest pain, palpitation at this time. PAST MEDICAL HISTORY: History of atrial fibrillation, CHF, COPD, CVA, hypertension, hyperlipidemia, pneumonia, history of cardiomyopathy, ejection fraction 20%. MEDICATIONS: Home medications are: 1. Flomax 0.4 q.h.s. 2. Aldactone 25 mg p.o. daily. 3. Xarelto 20 mg daily. 4. Pravachol 40 mg. 5. K-Dur 10 mEq p.o. daily. 6. Corgard 20 mg p.o. b.i.d. 7. Magnesium oxide 400 mg t.i.d. 8. Zestril 2.5 mg daily. 9. DuoNeb q.i.d. 10.Atrovent q.i.d. p.r.n. 11.Lasix 20 mg b.i.d. 12.Perforomist 20 b.i.d. 13.Lomotil 1 b.i.d. 14.Pulmicort 1 mg b.i.d. 15.Cordarone 400 mg. 16.ProAir HFA 2 puffs q.6h p.r.n. ALLERGIES: CEPHALEXIN. FAMILY HISTORY: History of diabetes mellitus in the family. SOCIAL HISTORY: History of smoking on a regular basis. History of alcohol. REVIEW OF SYSTEMS: ENT: No diminished hearing or vision. CARDIOVASCULAR: As mentioned earlier. RESPIRATORY: As mentioned earlier. GI: As mentioned. : As mentioned. NERVOUS SYSTEM: As mentioned. ALLERGY/IMMUNOLOGY: No history of asthma. MUSCULOSKELETAL: As mentioned. HEMATOLOGY: No history of anemia. ENDOCRINE: No history of diabetes or hypothyroidism. CONSTITUTIONAL: As mentioned earlier. DERMATOLOGY: Negative. RHEUMATOLOGY: Negative. PSYCHIATRY: As mentioned earlier. PHYSICAL EXAMINATION: Alert, oriented x2. Pulse 85, blood pressure 99/49, respiration 18, temperature 97 degrees, pulse ox 97% on 3 L. HEENT: conjunctivae normal. Oral mucosa dry. Neck is no jugular venous distention. No carotid bruit. No lymph node enlargement. CARDIOVASCULAR: S1, S2. RESPIRATORY: Breath sounds diminished in the bases. A few scattered rhonchi and crackles. ABDOMEN: Soft, scaphoid, nontender. No mass palpable. LEGS: No edema, no swelling. NERVOUS SYSTEM: Higher functions as mentioned. Moves all 4 limbs. Diffusely weak and emaciated. LYMPHATICS: No lymphadenopathy in the neck, axillae, groin. SKIN: No ulcer, rash or bleeding. LABS: WBC 13.2, hemoglobin is 10.7. INR is 1. Sodium 133, potassium 4.2, creatinine 6.99, magnesium is 2.5. Troponin 0.069. UA noted. ASSESSMENT: 1. Acute renal failure, acute tubular necrosis, possibly prerenal renal failure. 2. Urinary tract infection with possible sepsis with severe sepsis and hypotension. 3. Hypotension secondary to sepsis and dehydration, multifactorial. 4. Hyponatremia. 5. Troponin 0.06 indeterminate. 6. Increased creatine kinase with acute rhabdomyolysis. 7. Increased WBC. 8. Anemia of chronic disease. 9. History of ETOH. 10.History atrial fibrillation. 11.Congestive heart failure history. 12.Chronic obstructive pulmonary disease. 13.Cerebrovascular accident, transient ischemic attack. 14.Hypertension. 15.Hyperlipidemia. 16.History of pneumonia. 17.History of alcoholic cardiomyopathy, ejection fraction 20% with congestive heart failure with chronic systolic dysfunction. 18.History of degenerative joint disease. 19.History of bouts of pneumonia. 20.History of continued ongoing nicotine dependence. 21.Severe protein calorie malnutrition with BMI of 19.5. 22.FULL CODE. RECOMMENDATIONS AND DISCUSSION: This 72-year-old gentleman who presented with multiple complex medical issues, we will monitor the patient closely. Continue the current management and symptomatic treatment. Will initiate broad-spectrum IV antibiotics for his hydration. Admitted to ICU and monitor blood pressure closely. Consult Dr. Tejeda for ICU management. Broad-spectrum IV antibiotics will be given and resume the rest of the medications. The social welfare administrator also will be consulted because status living situation. The prognosis extremely guarded because of multiple complex medical issues. Further recommendations to follow. MMODL / IJN: [id number] /
[2018-01-13] MEDS: PIPERACILLIN-TAZOBACTAM 3.375 GM in DEXTROSE/WATER 1 50ML.BAG IVPB SCH ×3 (00:11→23:08)
[2018-01-13] MEDS: HEPARIN SODIUM,PORCINE 5,000 UNIT/ML 1 ML VIAL SQ SCH ×4 (00:11→23:08)
[2018-01-13] MEDS ORDERED: SODIUM CHLORIDE 0.9% 1,000 ML IV ONE ×2 (01:12→09:45)
[2018-01-13 05:14] LABS: Anisocytosis Slight; Basophils % (A) 0 %; Eosinophils # (A) 0.1 k/uL (0-0.7); Eosinophils % (A) 1 %; HCT 28.9 % (39.0-53.0); Hypochromasia Marked; Lymphocytes # (A) 1.7 k/uL (1.0-4.8); Lymphocytes % (A) 18 %; MCH 26.3 pg (25.0-35.0); MCHC 30.6 g/dL (31.0-37.0); Mean Platelet Volume 7.4; Monocytes # (A) 0.5 k/uL (0-1.0); Monocytes % (A) 5 %; Neutrophils % (A) 75 %; Platelet Count 222 k/uL (150-450); RBC 3.36 m/uL (4.30-5.90); RDW 16.8 % (11.5-15.5); WBC 9.4 k/uL (3.8-10.6)
[2018-01-13 05:25] LABS: Calcium 6.8 mg/dL (8.4-10.2); Potassium 3.8 mmol/L (3.5-5.1)
[2018-01-13 05:44] LABS: HGB 8.8 gm/dL (13.0-17.5)
[2018-01-13] MEDS: FORMOTEROL FUMARATE 20 MCG/2 ML NEBU INHALATION SCH ×3 (07:03→19:33)
[2018-01-13] MEDS: BUDESONIDE 1 MG/2 ML NEBU INHALATION SCH ×3 (07:03→19:33)
[2018-01-13] MEDS: IPRATROPIUM-ALBUTEROL 3 ML NEB INHALATION SCH ×5 (07:03→19:33)
--- NOTE | 2018-01-13 08:53 | XR ---
EXAMINATION TYPE: XR chest 1V portable DATE OF EXAM: 01/13/2018 Comparison: 01/12/2018 Clinical History: 72-year-old male follow-up CHF Findings: Reverse right shoulder arthroplasty partially visualized. Heart upper limits of normal in size. Asymm etric elevation of the left hemidiaphragm redemonstrated. Suggestion of some volume loss at the left base with patchy opacity. No significant pleural effusion. Impression: Suggestion of some volume loss at the left base with slight increased patchy left basilar atelectasis and/or infiltrate.
--- NOTE | 2018-01-13 10:30 | P.NPCON ---
History of Present Illness - Reason for Consult acute renal failure - History of Present Illness Reason for consultation: Acute kidney injury History of present illness: Patient is a 72-year-old male seen in renal consultation for acute kidney injury. His creatinine was 6.99 on admission and is 4.62 today. Patient sustained a fall at home and subsequently was brought to the hospital by the EMS. According to the chart his blood pressure was in the systolic 50s when the EMS arrived. He received 2 L of normal saline bolus and is currently receiving another liter bolus now. He is also maintained on normal saline at 75 mL an hour for maintenance fluids. He is nonoliguric. His blood pressures now the systolic 90s and he is on 20 mics of Levophed. Patient denies any prior history of kidney disease. However he does of systolic CHF with ejection fraction of less than 20% with mild to moderate mitral and tricuspid regurgitation. Chest x-ray reveals no evidence of fluid overload. No edema in his extremities. Denies vomiting or diarrhea. Oral intake is starting to improve. Denies use of NSAIDs. Vital signs are stable. General: The patient appeared well nourished and normally developed. HEENT: Head exam is unremarkable. Neck is without jugular venous distension. LUNGS: Lungs are clear to auscultation and percussion. Breath sounds decreased. HEART: Rate and Rhythm are regular. First and second heart sounds normal. No murmurs, rubs or gallops. ABDOMEN: Abdominal exam reveals normal bowel sounds. Non-tender and non- distended. No evidence of peritonitis. EXTREMITITES: No clubbing, cyanosis, or edema. 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%, history cervical and lumbar spondylosis, carpal tunnel disease, paroxysmal atrial fibrillation, previous hospitalization for alcohol intoxication and altered mentation and previous history of fall with pulmonary contusion and traumatic right-sided fractures, history of delirium tremens, chronic atrial fibrillation, hypertension, hyperlipidemia, previous bouts of pneumonia, previous hospital physician for acute alcohol intoxication, kidney stones, cataracts, degenerative arthritis History of Any Multi-Drug Resistant Organisms: None Reported Past Surgical History: Back Surgery, Hernia Repair Additional Past Surgical History / Comment(s): right shoulder surgery, bilateral cataract surgery, umbilical hernia surgery, kidney stones removal, hammer toe surgery X3 with subsequent amputation of the second toe on right foot , pain injections through neurology, colonoscopy Past Anesthesia/Blood Transfusion Reactions: No Reported Reaction Past Psychological History: No Psychological Hx Reported Additional Psychological History / Comment(s): Lives with friend, Bekah Arriaga. she lives in the upstairs of his home. Smoking Status: Current every day smoker Past Alcohol Use History: Heavy Additional Past Alcohol Use History / Comment(s): Smokes 1 PPD, used to drink a fifth a day but recently quit. Past Drug Use History: None Reported - Past Family History Father Family Medical History: Diabetes Mellitus Mother History Unknown: Yes Additional Family Medical History / Comment(s): 2001 Medications and Allergies Home Medications Medication Instructions Recorded Confirmed Type Albuterol Sulfate [Proair Hfa] 2 puff INHALATION RT-Q6H PRN 09/14/16 01/12/18 History Rivaroxaban [Xarelto] 20 mg PO DAILY 03/28/17 01/12/18 History Ipratropium-Albuterol Nebulize 3 ml INHALATION RT-QID 10/14/17 01/12/18 History [Duoneb 0.5 mg-3 mg/3 ml Soln] Amiodarone [Cordarone] 400 mg PO DAILY #30 tab 10/21/17 01/12/18 Rx Budesonide [Pulmicort] 1 mg INHALATION RT-BID #20 nebu 10/21/17 01/12/18 Rx Formoterol Fumarate [Perforomist] 20 mcg INHALATION RT-BID #20 nebu 10/21/17 Rx Pravastatin Sodium [Pravachol] 40 mg PO HS #30 tab 10/21/17 01/12/18 Rx Magnesium Oxide [Mag-Ox] 400 mg PO TID tab 10/27/17 01/12/18 Rx Spironolactone [Aldactone] 25 mg PO DAILY tab 10/27/17 01/12/18 Rx Ipratropium [place] [Atrovent Hfa] 2 puff INHALATION RT-QID PRN 11/28/17 History Tamsulosin [Flomax] 0.4 mg PO HS 11/28/17 01/12/18 History Nadolol [Corgard] 20 mg PO BID #60 tab 12/10/17 01/12/18 Rx Furosemide [Lasix] 20 mg PO BID #60 tab 12/15/17 01/12/18 Rx Diphenox-Atrop 2.5-0.025 mg 1 tab PO BID 01/12/18 01/12/18 History [Lomotil] Lisinopril [Zestril] 2.5 mg PO DAILY 01/12/18 01/12/18 History Potassium Chloride ER [K-Dur 20] 20 meq PO DAILY 01/12/18 01/12/18 History Allergies Allergy/AdvReac Type Severity Reaction Status Date / Time cephalexin monohydrate Allergy Rash/Hives Verified 01/12/18 16:26 [From Keflex] Physical Exam Vitals: Vital Signs Temp Pulse Pulse Resp BP Pulse Ox 01/13/18 09:15 79 16 90/56 100 01/13/18 09:00 78 15 98/61 100 01/13/18 08:45 76 14 85/55 100 01/13/18 08:30 86 14 95/60 100 01/13/18 08:15 83 14 98/66 100 01/13/18 08:00 83 15 100/65 100 01/13/18 07:45 85 14 100/65 100 01/13/18 07:30 86 14 103/71 100 01/13/18 07:15 80 15 105/65 100 01/13/18 07:00 81 16 94/57 100 01/13/18 06:45 81 16 96/65 100 01/13/18 06:30 78 15 95/64 100 01/13/18 06:15 85 19 92/57 96 01/13/18 06:00 84 14 92/57 100 01/13/18 05:45 73 14 100/60 100 01/13/18 05:30 80 14 94/63 100 01/13/18 05:15 83 14 97/62 100 01/13/18 05:00 81 18 111/70 100 01/13/18 04:45 88 15 95/61 100 01/13/18 04:30 85 13 83/59 100 01/13/18 04:15 79 17 93/64 100 01/13/18 04:00 97.7 F 84 13 90/62 100 01/13/18 03:45 97 16 85/57 100 09/18/18 03:30 83 16 98/63 100 /18/18 03:15 80 12 99/65 100 18/18 03:00 87 13 100/62 100 18/18 02:45 67 18 104/64 100 18/18 02:30 82 14 104/64 100 18/18 02:15 73 13 98/61 100 18/18 02:00 83 16 94/58 100 18/18 01:45 84 17 88/57 100 18/18 01:30 77 12 101/59 100 18/18 01:15 82 18 96/57 100 18/18 01:00 72 16 84/57 100 18/18 00:45 86 18 94/60 97 18/18 00:30 71 20 75/48 97 18/18 00:15 81 16 75/48 100 18/18 00:00 95 26 H 98/66 100 17/18 23:45 87 17 87/58 100 17/18 23:30 80 14 67/48 100 17/18 23:15 81 16 76/49 100 17/18 23:00 85 16 74/55 100 17/18 22:45 90 14 94/56 100 17/18 22:30 84 16 104/61 100 17/18 22:15 104 H 31 H 99/69 95 17/18 22:00 79 20 90/61 97 17/18 21:45 81 15 99/61 100 17/18 21:30 85 14 92/64 100 17/18 21:15 84 23 101/61 100 17/18 21:00 83 16 94/57 99 17/18 20:45 81 19 100/58 97 17/18 20:30 84 16 100/58 97 17/18 20:15 98.3 F 95 76 17 77/52 100 17/18 19:39 97.0 F L 17/18 19:03 85 18 99/49 97 17/18 18:34 84 18 110/58 100 17/18 18:19 89 99/56 100 17/18 18:16 97.4 F L 87 18 82/46 97 09/17/18 17:40 95 101/52 100 01/12/18 16:59 94 20 70/36 95 01/12/18 16:38 90 22 84/42 95 01/12/18 16:00 84/39 01/12/18 15:49 88 79/38 01/12/18 15:34 97 F L 91 24 97 01/12/18 15:07 97 F L 18 Intake and Output 01/12/18 01/13/18 01/13/18 22:59 06:59 14:59 Intake Total 763.694 4018.721 391.63 Output Total 80 1050 525 Balance 190.226 804.721 -133.37 Intake: IV 225 1725 225 Piperacillin-Tazobactam 3 50 .375 gm In Dextrose/Water 1 50ml.bag @ 12.5 mls/hr IVPB ONCE STA Rx#: [id number] Sodium Chloride 0.9% 1, 225 675 225 000 ml @ 75 mls/hr IV . [id number] [facility] Rx#:[id number] Sodium Chloride 0.9% 1, 1000 000 ml @ 999 mls/hr IV . Q1H1M ONE Rx#:[id number] Intake, IV Titration 45.226 129.721 91.63 Amount Norepinephrine 16 mg In 45.226 129.721 91.63 Sodium Chloride 0.9% 250 ml @ Titrate IV .Q0M [facility] Rx#:[id number] Oral 75 Output: Urine 80 1050 525 Uretheral (Price) 25 Other: Voiding Method Indwelling Catheter Indwelling Catheter Weight 65.317 kg 62.9 kg Results - Lab Results Most recent lab results Calcium 6.8 mg/dL (8.4-10.2) L 01/13/18 04:58 Phosphorus 5.0 mg/dL (2.5-4.5) H 01/13/18 04:58 Magnesium 2.0 mg/dL (1.6-2.3) 01/13/18 04:58 01/13/18 04:58 01/13/18 04:58 Assessment and Plan Plan: Assessment: 1. Nonoliguric acute kidney injury mostly prerenal improving with IV hydration. Creatinine was 6.99 on admission and is down to 4.62 today. Baseline creatinine is near 1. 2. Hypotension maintained on 20 mics of Levophed. 3. Systolic CHF with ejection fraction of less than 20% with mild to moderate mitral and tricuspid regurgitation. Compensated. 4. Septic shock. Source likely being UTI. 5. Anemia. Rule out iron deficiency. 6. Hypovolemic hyponatremia improved with IV hydration. Plan: Continue normal saline at 75 mL an hour. Follow-up cultures. Avoid nephrotoxins. If remains hypotensive after third liter of normal saline bolus, will add midodrine. Wean levophed. Continue to monitor renal function and urine output. Check iron studies. Check cortisol level. Thank you for the consultation. I will continue to follow the patient with you during his hospital stay.
[2018-01-13] MEDS: PANTOPRAZOLE 40 MG/10 ML VIAL IV SCH (10:39)
[2018-01-13] MEDS: MAGNESIUM OXIDE 400 MG TAB PO SCH ×3 (10:39→21:13)
[2018-01-13] MEDS: NICOTINE 14MG/24HR PATCH TRANSDERM SCH (10:40)
[2018-01-13] MEDS: DIPHENOX-ATROP 2.5-0.025 MG 1 EACH TAB PO SCH ×2 (10:43→20:49)
[2018-01-13] MEDS: NOREPINEPHRINE 16 MG in SODIUM CHLORIDE 0.9% 250 ML IV SCH ×2 (10:51→20:49)
--- NOTE | 2018-01-13 11:54 | P.CNPUL ---
History of Present Illness Consult date: 01/13/18 Reason for consult: other (Profound hypotension) Chief complaint: Altered mental status History of present illness: This is a 72-year-old white male with history of severe LV dysfunction, ejection fraction is supposedly 20%, COPD, chronic alcohol use, paroxysmal atrial fibrillation, patient was brought into the ER yesterday by EMS with altered mental status. 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 When EMS arrived on the scene , the patient was on the ground, unknown how long he has been on the floor. Looking back at the patient's history in the chart, patient was recently admitted to the hospital, and he was discharged home on 12/16/2015. His medical problems at that time included paroxysmal atrial fibrillation with RVR, COPD exacerbation, acute kidney injury, severe alcohol abuse, nicotine dependence, nonischemic cardiomyopathy with LV dysfunction, ejection fraction of 20%, chronic systolic congestive heart failure, hypertension, and previous history of CVA. The patient himself is a very poor historian. In the ER, the patient was noted to be hypotensive, no clear-cut evidence of sepsis, patient was given fluid boluses, did not improve much, hence a central line was placed by the ER physician, and he was placed on norepinephrine drip. Presently the patient remains on norepinephrine at 20 mcg/m. Blood pressure remains marginal, his hypotension was felt to be secondary to cardiogenic shock, possible hypovolemic shock. His creatinine on this admission was 6.99, and today it is 4.62. In the ER his systolic blood pressure was in the 50s upon arrival. Patient was also placed on antibiotics empirically although no clear-cut evidence of infection at this point. 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%, history cervical and lumbar spondylosis, carpal tunnel disease, paroxysmal atrial fibrillation, previous hospitalization for alcohol intoxication and altered mentation and previous history of fall with pulmonary contusion and traumatic right-sided fractures, history of delirium tremens, chronic atrial fibrillation, hypertension, hyperlipidemia, previous bouts of pneumonia, previous hospital physician for acute alcohol intoxication, kidney stones, cataracts, degenerative arthritis History of Any Multi-Drug Resistant Organisms: None Reported Past Surgical History: Back Surgery, Hernia Repair Additional Past Surgical History / Comment(s): right shoulder surgery, bilateral cataract surgery, umbilical hernia surgery, kidney stones removal, hammer toe surgery X3 with subsequent amputation of the second toe on right foot , pain injections through neurology, colonoscopy Past Anesthesia/Blood Transfusion Reactions: No Reported Reaction Past Psychological History: No Psychological Hx Reported Additional Psychological History / Comment(s): Lives with friend, Bekah Arriaga. she lives in the upstairs of his home. Smoking Status: Current every day smoker Past Alcohol Use History: Heavy Additional Past Alcohol Use History / Comment(s): Smokes 1 PPD, used to drink a fifth a day but recently quit. Past Drug Use History: None Reported - Past Family History Father Family Medical History: Diabetes Mellitus Mother History Unknown: Yes Additional Family Medical History / Comment(s): 2001 Medications and Allergies Home Medications Medication Instructions Recorded Confirmed Type Albuterol Sulfate [Proair Hfa] 2 puff INHALATION RT-Q6H PRN 09/14/16 01/12/18 History Rivaroxaban [Xarelto] 20 mg PO DAILY 03/28/17 01/12/18 History Ipratropium-Albuterol Nebulize 3 ml INHALATION RT-QID 10/14/17 01/12/18 History [Duoneb 0.5 mg-3 mg/3 ml Soln] Amiodarone [Cordarone] 400 mg PO DAILY #30 tab 10/21/17 01/12/18 Rx Budesonide [Pulmicort] 1 mg INHALATION RT-BID #20 nebu 10/21/17 01/12/18 Rx Formoterol Fumarate [Perforomist] 20 mcg INHALATION RT-BID #20 nebu 10/21/17 Rx Pravastatin Sodium [Pravachol] 40 mg PO HS #30 tab 10/21/17 01/12/18 Rx Magnesium Oxide [Mag-Ox] 400 mg PO TID tab 10/27/17 01/12/18 Rx Spironolactone [Aldactone] 25 mg PO DAILY tab 10/27/17 01/12/18 Rx Ipratropium [place] [Atrovent Hfa] 2 puff INHALATION RT-QID PRN 11/28/17 History Tamsulosin [Flomax] 0.4 mg PO HS 11/28/17 01/12/18 History Nadolol [Corgard] 20 mg PO BID #60 tab 12/10/17 01/12/18 Rx Furosemide [Lasix] 20 mg PO BID #60 tab 12/15/17 01/12/18 Rx Diphenox-Atrop 2.5-0.025 mg 1 tab PO BID 01/12/18 01/12/18 History [Lomotil] Lisinopril [Zestril] 2.5 mg PO DAILY 01/12/18 01/12/18 History Potassium Chloride ER [K-Dur 20] 20 meq PO DAILY 01/12/18 01/12/18 History Allergies Allergy/AdvReac Type Severity Reaction Status Date / Time cephalexin monohydrate Allergy Rash/Hives Verified 01/12/18 16:26 [From Keflex] Physical Exam Vitals: Vital Signs Temp Pulse Pulse Resp BP Pulse Ox 01/13/18 11:24 83 01/13/18 11:15 82 19 87/60 100 01/13/18 11:12 86 01/13/18 11:00 81 18 93/59 83 L 01/13/18 10:45 77 17 101/59 97 01/13/18 10:30 100 17 101/59 100 01/13/18 10:15 98 18 86/62 88 L 01/13/18 10:00 83 19 93/68 100 01/13/18 09:45 94 20 90/58 94 L 01/13/18 09:30 97.6 F 88 15 90/58 100 01/13/18 09:15 79 16 90/56 100 01/13/18 09:00 78 15 98/61 100 01/13/18 08:45 76 14 85/55 100 01/13/18 08:30 86 14 95/60 100 01/13/18 08:15 83 14 98/66 100 01/13/18 08:00 83 15 100/65 100 01/13/18 07:45 85 14 100/65 100 01/13/18 07:30 86 14 103/71 100 01/13/18 07:15 80 15 105/65 100 01/13/18 07:00 81 16 94/57 100 09/18/18 06:45 81 16 96/65 100 09/18/18 06:30 78 15 95/64 100 09/18/18 06:15 85 19 92/57 96 09/18/18 06:00 84 14 92/57 100 09/18/18 05:45 73 14 100/60 100 09/18/18 05:30 80 14 94/63 100 09/18/18 05:15 83 14 97/62 100 09/18/18 05:00 81 18 111/70 100 09/18/18 04:45 88 15 95/61 100 09/18/18 04:30 85 13 83/59 100 09/18/18 04:15 79 17 93/64 100 09/18/18 04:00 97.7 F 84 13 90/62 100 09/18/18 03:45 97 16 85/57 100 09/18/18 03:30 83 16 98/63 100 09/18/18 03:15 80 12 99/65 100 09/18/18 03:00 87 13 100/62 100 09/18/18 02:45 67 18 104/64 100 09/18/18 02:30 82 14 104/64 100 09/18/18 02:15 73 13 98/61 100 09/18/18 02:00 83 16 94/58 100 09/18/18 01:45 84 17 88/57 100 09/18/18 01:30 77 12 101/59 100 09/18/18 01:15 82 18 96/57 100 09/18/18 01:00 72 16 84/57 100 09/18/18 00:45 86 18 94/60 97 09/18/18 00:30 71 20 75/48 97 09/18/18 00:15 81 16 75/48 100 09/18/18 00:00 95 26 H 98/66 100 09/17/18 23:45 87 17 87/58 100 09/17/18 23:30 80 14 67/48 100 09/17/18 23:15 81 16 76/49 100 09/17/18 23:00 85 16 74/55 100 09/17/18 22:45 90 14 94/56 100 09/17/18 22:30 84 16 104/61 100 09/17/18 22:15 104 H 31 H 99/69 95 09/17/18 22:00 79 20 90/61 97 09/17/18 21:45 81 15 99/61 100 01/12/18 21:30 85 14 92/64 100 01/12/18 21:15 84 23 101/61 100 01/12/18 21:00 83 16 94/57 99 01/12/18 20:45 81 19 100/58 97 01/12/18 20:30 84 16 100/58 97 01/12/18 20:15 98.3 F 95 76 17 77/52 100 01/12/18 19:39 97.0 F L 01/12/18 19:03 85 18 99/49 97 01/12/18 18:34 84 18 110/58 100 01/12/18 18:19 89 99/56 100 01/12/18 18:16 97.4 F L 87 18 82/46 97 01/12/18 17:40 95 101/52 100 01/12/18 16:59 94 20 70/36 95 01/12/18 16:38 90 22 84/42 95 01/12/18 16:00 84/39 01/12/18 15:49 88 79/38 01/12/18 15:34 97 F L 91 24 97 01/12/18 15:07 97 F L 18 Intake and Output 01/12/18 01/13/18 01/13/18 22:59 06:59 14:59 Intake Total 281.549 2761.721 489.421 Output Total 80 1050 700 Balance 190.226 804.721 -210.579 Intake: IV 225 1725 300 Piperacillin-Tazobactam 3 50 .375 gm In Dextrose/Water 1 50ml.bag @ 12.5 mls/hr IVPB ONCE STA Rx#: [id number] Sodium Chloride 0.9% 1, 225 675 300 000 ml @ 75 mls/hr IV . [id number] [facility] Rx#:[id number] Sodium Chloride 0.9% 1, 1000 000 ml @ 999 mls/hr IV . Q1H1M ONE Rx#:[id number] Intake, IV Titration 45.226 129.721 114.421 Amount Norepinephrine 16 mg In 45.226 129.721 114.421 Sodium Chloride 0.9% 250 ml @ Titrate IV .Q0M [facility] Rx#:[id number] Oral 75 Output: Urine 80 1050 700 Uretheral (Price) 25 Other: Voiding Method Indwelling Catheter Indwelling Catheter Indwelling Catheter Weight 65.317 kg 62.9 kg Physical Exam: Revealed a 72-year-old white male, confused, in no form of respiratory distress at present. On 3 L nasal cannula saturating about 97%. Head: Atraumatic, normocephalic. HEENT:[Neck is supple.] [No neck masses.] [No thyromegaly.] [No JVD.] Chest: [Clear throughout, no crackles, no rhonchi, no wheezes.] Cardiac Exam: [Normal S1 and S2, no S3 gallop, no murmur.] Abdomen: [Soft, nontender, no megaly, no rebound, no guarding, normal bowel sounds.] Extremities: [No clubbing, no edema, no cyanosis.] Neurological Exam: [Oriented to place and person, not to time. Lymphatics: No lymphadenopathy. Psychiatric: Normal mood, normal affect, confused mental status. Results - Laboratory Findings CBC and BMP: 01/13/18 04:58 01/13/18 04:58 PT/INR, D-dimer PT 9.9 sec (9.0-12.0) 01/12/18 16:03 INR 1.0 (<1.2) 01/12/18 16:03 Abnormal lab findings: Abnormal Labs 01/12/18 01/12/18 01/12/18 16:03 16:03 16:03 WBC 13.7 H RBC 4.11 L Hgb 10.7 L Hct 35.9 L MCHC 29.8 L RDW 16.8 H Neutrophils # 10.4 H Sodium 133 L Chloride 92 L BUN 62 H Creatinine 6.99 H Glucose Calcium 7.9 L Phosphorus Magnesium 2.5 H Creatine Kinase 407 H Troponin I 0.069 H* Total Protein 5.4 L Albumin 2.9 L Urine Protein Urine Blood Ur Leukocyte Esterase Urine WBC Urine Bacteria Hyaline Casts Urine Mucus 01/12/18 01/12/18 01/13/18 16:53 22:33 04:58 WBC RBC 3.36 L Hgb 8.8 L D Hct 28.9 L MCHC 30.6 L RDW 16.8 H Neutrophils # Sodium Chloride BUN Creatinine Glucose Calcium Phosphorus Magnesium Creatine Kinase Troponin I 0.052 H* Total Protein Albumin Urine Protein 1+ H Urine Blood Small H Ur Leukocyte Esterase Moderate H Urine WBC 16 H Urine Bacteria Occasional H Hyaline Casts 16 H Urine Mucus Rare H 01/13/18 04:58 WBC RBC Hgb Hct MCHC RDW Neutrophils # Sodium 136 L Chloride BUN 50 H Creatinine 4.62 H Glucose 106 H Calcium 6.8 L Phosphorus 5.0 H Magnesium Creatine Kinase 553 H Troponin I Total Protein Albumin Urine Protein Urine Blood Ur Leukocyte Esterase Urine WBC Urine Bacteria Hyaline Casts Urine Mucus - Diagnostic Findings Chest x-ray: image reviewed (Left lower lobe atelectasis or consolidation is suspected.) Assessment and Plan Assessment: Impression: 1 acute hypotension, the differential diagnoses includes hypovolemic shock, cardiogenic shock, strongly doubt septic shock. 2 acute kidney injury, acute tubular necrosis secondary to hypotension. 3 anemia of chronic disease 4 chronic systolic congestive heart failure 5 left lower lobe atelectasis, doubt pneumonia. 6 history of alcoholism 7 alcoholic cardiomyopathy and LV dysfunction, ejection fraction of 20%. 8 degenerative joint disease 9 ongoing nicotine dependence. 10 severe protein calorie malnutrition, BMI of 19.5. Recommendation: Continue fluids, continue empiric antibiotics, await cultures, continue pressors, continue to monitor in the ICU closely, continue GI prophylaxis, DVT prophylaxis, nutritional support, will follow along with the other consultants. Prognosis is definitely poor and guarded. Time with Patient: Greater than 30
[2018-01-13] MEDS: NADOLOL 20 MG TAB PO SCH ×2 (12:18→20:37)
[2018-01-13] MEDS: FOLIC ACID 1 MG TAB PO SCH (12:32)
[2018-01-13] MEDS: THIAMINE 100 MG TAB PO SCH (12:32)
[2018-01-13] MEDS: MULTIVITAMINS, THERA 1 EACH TAB PO SCH (12:32)
--- NOTE | 2018-01-13 13:42 | P.CRDCN ---
History of Present Illness History of present illness: This is Dr. Mcpherson dictating a consult on this patient The patient was interviewed and examined by me IMPRESSION / ASSESSMENT: Atrial fibrillation with RVR Cardiomyopathy left ventricular fraction 20% hypertension dyslipidemia chronic kidney disease PLAN: Rate control for atrial fibrillation Unfortunately at this time he is on Levothroid which is increasing his heart rates. Consider using IV/oral amiodarone HPI Patient presents with A. fib with RVR ROS: No fever chills or rigors, no cough, phlegm or expectoration, no nausea, vomiting or diarrhea, no hematuria, dysuria, no musculoskeletal complaints, no strokes or seizures, no skin lesions. EXAMINATION Blood pressure is low he is on Levothroid Breath sounds are reduced bilaterally heart sounds are tachycardic REVIEW OF LABS, ECG Hemoglobin 8. There has been a 2. 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%, history cervical and lumbar spondylosis, carpal tunnel disease, paroxysmal atrial fibrillation, previous hospitalization for alcohol intoxication and altered mentation and previous history of fall with pulmonary contusion and traumatic right-sided fractures, history of delirium tremens, chronic atrial fibrillation, hypertension, hyperlipidemia, previous bouts of pneumonia, previous hospital physician for acute alcohol intoxication, kidney stones, cataracts, degenerative arthritis History of Any Multi-Drug Resistant Organisms: None Reported Past Surgical History: Back Surgery, Hernia Repair Additional Past Surgical History / Comment(s): right shoulder surgery, bilateral cataract surgery, umbilical hernia surgery, kidney stones removal, hammer toe surgery X3 with subsequent amputation of the second toe on right foot , pain injections through neurology, colonoscopy Past Anesthesia/Blood Transfusion Reactions: No Reported Reaction Past Psychological History: No Psychological Hx Reported Additional Psychological History / Comment(s): Lives with friend, Bekah Arriaga. she lives in the upstairs of his home. Smoking Status: Current every day smoker Past Alcohol Use History: Heavy Additional Past Alcohol Use History / Comment(s): Smokes 1 PPD, used to drink a fifth a day but recently quit. Past Drug Use History: None Reported - Past Family History Father Family Medical History: Diabetes Mellitus Mother History Unknown: Yes Additional Family Medical History / Comment(s): 2001 Medications and Allergies Home Medications Medication Instructions Recorded Confirmed Type Albuterol Sulfate [Proair Hfa] 2 puff INHALATION RT-Q6H PRN 09/14/16 01/12/18 History Rivaroxaban [Xarelto] 20 mg PO DAILY 03/28/17 01/12/18 History Ipratropium-Albuterol Nebulize 3 ml INHALATION RT-QID 10/14/17 01/12/18 History [Duoneb 0.5 mg-3 mg/3 ml Soln] Amiodarone [Cordarone] 400 mg PO DAILY #30 tab 10/21/17 01/12/18 Rx Budesonide [Pulmicort] 1 mg INHALATION RT-BID #20 nebu 10/21/17 01/12/18 Rx Formoterol Fumarate [Perforomist] 20 mcg INHALATION RT-BID #20 nebu 10/21/17 Rx Pravastatin Sodium [Pravachol] 40 mg PO HS #30 tab 10/21/17 01/12/18 Rx Magnesium Oxide [Mag-Ox] 400 mg PO TID tab 10/27/17 01/12/18 Rx Spironolactone [Aldactone] 25 mg PO DAILY tab 10/27/17 01/12/18 Rx Ipratropium [place] [Atrovent Hfa] 2 puff INHALATION RT-QID PRN 11/28/17 History Tamsulosin [Flomax] 0.4 mg PO HS 11/28/17 01/12/18 History Nadolol [Corgard] 20 mg PO BID #60 tab 12/10/17 01/12/18 Rx Furosemide [Lasix] 20 mg PO BID #60 tab 12/15/17 01/12/18 Rx Diphenox-Atrop 2.5-0.025 mg 1 tab PO BID 01/12/18 01/12/18 History [Lomotil] Lisinopril [Zestril] 2.5 mg PO DAILY 01/12/18 01/12/18 History Potassium Chloride ER [K-Dur 20] 20 meq PO DAILY 01/12/18 01/12/18 History Allergies Allergy/AdvReac Type Severity Reaction Status Date / Time cephalexin monohydrate Allergy Rash/Hives Verified 01/12/18 16:26 [From Keflex] Physical Exam Vitals: Vital Signs Temp Pulse Pulse Resp BP Pulse Ox 01/13/18 11:24 83 1818 11:15 82 19 87/60 100 18 11:12 86 18 11:00 81 18 93/59 83 L 18 10:45 77 17 101/59 97 18 10:30 100 17 101/59 100 18 10:15 98 18 86/62 88 L 01/13/18 10:00 83 19 93/68 100 18 09:45 94 20 90/58 94 L 01/13/18 09:30 97.6 F 88 15 90/58 100 18 09:15 79 16 90/56 100 18 09:00 78 15 98/61 100 18 08:45 76 14 85/55 100 18 08:30 86 14 95/60 100 18 08:15 83 14 98/66 100 18 08:00 83 15 100/65 100 01/13/18 07:45 85 14 100/65 100 18/18 07:30 86 14 103/71 100 01/13/18 07:15 80 15 105/65 100 01/13/18 07:00 81 16 94/57 100 01/13/18 06:45 81 16 96/65 100 18 06:30 78 15 95/64 100 18 06:15 85 19 92/57 96 18 06:00 84 14 92/57 100 1818 05:45 73 14 100/60 100 18/18 05:30 80 14 94/63 100 18/18 05:15 83 14 97/62 100 18/18 05:00 81 18 111/70 100 18/18 04:45 88 15 95/61 100 18/18 04:30 85 13 83/59 100 18/18 04:15 79 17 93/64 100 18/18 04:00 97.7 F 84 13 90/62 100 18/18 03:45 97 16 85/57 100 18/18 03:30 83 16 98/63 100 /18/18 03:15 80 12 99/65 100 09/18/18 03:00 87 13 100/62 100 /18/18 02:45 67 18 104/64 100 /18/18 02:30 82 14 104/64 100 /18/18 02:15 73 13 98/61 100 /18/18 02:00 83 16 94/58 100 /18/18 01:45 84 17 88/57 100 18/18 01:30 77 12 101/59 100 18/18 01:15 82 18 96/57 100 18/18 01:00 72 16 84/57 100 /18/18 00:45 86 18 94/60 97 18/18 00:30 71 20 75/48 97 18/18 00:15 81 16 75/48 100 18/18 00:00 95 26 H 98/66 100 /17/18 23:45 87 17 87/58 100 17/18 23:30 80 14 67/48 100 17/18 23:15 81 16 76/49 100 17/18 23:00 85 16 74/55 100 17/18 22:45 90 14 94/56 100 17/18 22:30 84 16 104/61 100 17/18 22:15 104 H 31 H 99/69 95 17/18 22:00 79 20 90/61 97 17/18 21:45 81 15 99/61 100 17/18 21:30 85 14 92/64 100 17/18 21:15 84 23 101/61 100 17/18 21:00 83 16 94/57 99 17/18 20:45 81 19 100/58 97 17/18 20:30 84 16 100/58 97 17/18 20:15 98.3 F 95 76 17 77/52 100 17/18 19:39 97.0 F L 17/18 19:03 85 18 99/49 97 17/18 18:34 84 18 110/58 100 17/18 18:19 89 99/56 100 17/18 18:16 97.4 F L 87 18 82/46 97 17/18 17:40 95 101/52 100 01/12/18 16:59 94 20 70/36 95 01/12/18 16:38 90 22 84/42 95 01/12/18 16:00 84/39 01/12/18 15:49 88 79/38 01/12/18 15:34 97 F L 91 24 97 01/12/18 15:07 97 F L 18 Intake and Output 01/12/18 01/13/18 01/13/18 22:59 06:59 14:59 Intake Total 832.985 4898.721 1064.421 Output Total 80 1050 975 Balance 190.226 804.721 89.421 Intake: IV 225 1725 375 Piperacillin-Tazobactam 3 50 .375 gm In Dextrose/Water 1 50ml.bag @ 12.5 mls/hr IVPB ONCE [facility] Rx#: [id number] Sodium Chloride 0.9% 1, 225 675 375 000 ml @ 75 mls/hr IV . [id number] [facility] Rx#:[id number] Sodium Chloride 0.9% 1, 1000 000 ml @ 999 mls/hr IV . Q1H1M [facility] Rx#:[id number] Intake, IV Titration 45.226 129.721 614.421 Amount Norepinephrine 16 mg In 45.226 129.721 114.421 Sodium Chloride 0.9% 250 ml @ Titrate IV .Q0M [facility] [place] Rx#:[id number] Sodium Chloride 0.9% 1, 500 000 ml @ 999 mls/hr IV . Q1H1M [facility] Rx#:[id number] Oral 75 Output: Urine 80 1050 975 Uretheral (Price) 25 Other: Voiding Method Indwelling Catheter Indwelling Catheter Indwelling Catheter Weight 65.317 kg 62.9 kg Results 01/13/18 04:58 01/13/18 04:58 Cardiac Enzymes 01/12/18 01/12/18 01/12/18 Range/Units 16:03 16:03 22:33 AST 31 (17-59) U/L Troponin I 0.069 H* 0.052 H* (0.000-0.034) ng/mL Coagulation 01/12/18 Range/Units 16:03 PT 9.9 (9.0-12.0) sec APTT 25.1 (22.0-30.0) sec CBC 01/12/18 01/13/18 Range/Units 16:03 04:58 WBC 13.7 H 9.4 (3.8-10.6) k/uL RBC 4.11 L 3.36 L (4.30-5.90) m/uL Hgb 10.7 L 8.8 L D (13.0-17.5) gm/dL Hct 35.9 L 28.9 L (39.0-53.0) % Plt Count 293 222 (150-450) k/uL Comprehensive Metabolic Panel 01/12/18 01/13/18 Range/Units 16:03 04:58 Sodium 133 L 136 L (137-145) mmol/L Potassium 4.3 3.8 (3.5-5.1) mmol/L Chloride 92 L 106 (98-107) mmol/L Carbon Dioxide 26 23 (22-30) mmol/L BUN 62 H 50 H (9-20) mg/dL Creatinine 6.99 H 4.62 H (0.66-1.25) mg/dL Glucose 81 106 H (74-99) mg/dL Calcium 7.9 L 6.8 L (8.4-10.2) mg/dL AST 31 (17-59) U/L ALT 28 (21-72) U/L Alkaline Phosphatase 107 (38-126) U/L Total Protein 5.4 L (6.3-8.2) g/dL Albumin 2.9 L (3.5-5.0) g/dL Current Medications Generic Name Dose Route Start Last Admin Trade Name Freq PRN Reason Stop Dose Admin Acetaminophen 500 mg 01/12/18 20:39 Tylenol Tab PO Q6HR PRN Fever and/ or Pain Albuterol/Ipratropium 3 ml 01/13/18 08:00 01/13/18 11:12 Duoneb 0.5 Mg-3 Mg/3 Ml Soln INHALATION 3 ml RT-QID [facility] Administration Artificial Tears 1 drops 01/12/18 18:58 Artificial Tear Drops BOTH EYES Q4HR PRN Dry Eye(s) Budesonide 1 mg 01/13/18 08:00 01/13/18 07:32 Pulmicort INHALATION Not Given RT-BID [facility] Diphenoxylate HCl/Atropine 1 each 01/12/18 21:00 01/13/18 10:43 Lomotil PO 1 each BID [facility] Administration Folic Acid 1 mg 01/13/18 12:00 01/13/18 12:32 Folic Acid PO 1 mg DAILY@1200 [facility] Administration Formoterol Fumarate 20 mcg 01/13/18 08:00 01/13/18 07:32 Perforomist INHALATION Not Given RT-BID [facility] Heparin Sodium (Porcine) 5,000 unit 01/13/18 00:00 01/13/18 10:39 Heparin SQ 5,000 unit Q8HR [facility] Administration Norepinephrine Bitartrate 16 250 mls @ 0 mls/hr 01/12/18 17:00 01/13/18 10:51 mg/ Sodium Chloride IV Infused .Q0M [facility] Titration Protocol Titrate Sodium Chloride 1,000 mls @ 75 mls/hr 01/12/18 21:00 01/12/18 20:15 Saline 0.9% IV 75 mls/hr .[id number] [facility] Administration Piperacillin/Tazobactam/ 50 mls @ 12.5 mls/hr 01/13/18 12:00 01/13/18 12:20 Dextrose 3.375 gm/ IV Solution IVPB 12.5 mls/hr Q12H [facility] Administration Magnesium Oxide 400 mg 01/12/18 22:00 01/13/18 10:39 Mag-Ox PO 400 mg TID [facility] Administration Multivitamins 1 each 01/13/18 12:00 01/13/18 12:32 Theragran PO 1 each DAILY@1200 [facility] Administration Nadolol 20 mg 01/12/18 21:00 01/13/18 12:18 Corgard PO Not Given BID [facility] [place] Naloxone HCl 0.2 mg 01/12/18 18:58 Narcan IV Q2M PRN Opioid Reversal Nicotine 1 patch 01/13/18 09:00 01/13/18 10:40 Habitrol 14mg/24hr Patch TRANSDERM Not Given DAILY [facility] [place] Pantoprazole Sodium 40 mg 01/13/18 09:00 01/13/18 10:39 Protonix IV 40 mg DAILY [facility] Administration Tamsulosin HCl 0.4 mg 01/12/18 21:00 01/12/18 21:08 Flomax PO 0.4 mg HS [facility] Administration Temazepam 15 mg 01/12/18 20:39 Restoril PO HS PRN Insomnia Thiamine HCl 100 mg 01/13/18 12:00 01/13/18 12:32 Vitamin B-1 PO 100 mg DAILY@1200 [facility] Administration Intake and Output 01/12/18 01/13/18 01/13/18 22:59 06:59 14:59 Intake Total 746.207 0165.721 1064.421 Output Total 80 1050 975 Balance 190.226 804.721 89.421 Intake: IV 225 1725 375 Piperacillin-Tazobactam 3 50 .375 gm In Dextrose/Water 1 50ml.bag @ 12.5 mls/hr IVPB ONCE [facility] Rx#: [id number] Sodium Chloride 0.9% 1, 225 675 375 000 ml @ 75 mls/hr IV . [id number] [facility] [place] Rx#:[id number] Sodium Chloride 0.9% 1, 1000 000 ml @ 999 mls/hr IV . Q1H1M [facility] Rx#:[id number] Intake, IV Titration 45.226 129.721 614.421 Amount Norepinephrine 16 mg In 45.226 129.721 114.421 Sodium Chloride 0.9% 250 ml @ Titrate IV .Q0M [facility] [place] Rx#:[id number] Sodium Chloride 0.9% 1, 500 000 ml @ 999 mls/hr IV . Q1H1M [facility] Rx#:[id number] Oral 75 Output: Urine 80 1050 975 Uretheral (Price) 25 Other: Voiding Method Indwelling Catheter Indwelling Catheter Indwelling Catheter Weight 65.317 kg 62.9 kg 01/13/18 04:58 01/13/18 04:58
[2018-01-13 17:55] LABS: Iron Saturation 9.96 (15.00-50.00)
[2018-01-13] MEDS: SODIUM CHLORIDE 0.9% 1,000 ML IV SCH ×2 (19:04→23:08)
[2018-01-13] MEDS: MIDODRINE 5 MG TAB PO SCH (19:13)
[2018-01-13] MEDS: TAMSULOSIN 0.4 MG CAP.ER.24H PO SCH (20:49)
[2018-01-14 04:36] LABS: Anisocytosis Slight; Basophils % (A) 0 %; Eosinophils # (A) 0.1 k/uL (0-0.7); Eosinophils % (A) 1 %; HCT 28.2 % (39.0-53.0); HGB 8.6 gm/dL (13.0-17.5); Hypochromasia Marked; Lymphocytes # (A) 1.6 k/uL (1.0-4.8); Lymphocytes % (A) 18 %; MCH 26.3 pg (25.0-35.0); MCHC 30.6 g/dL (31.0-37.0); MCV 86.1 fL (80.0-100.0); Mean Platelet Volume 7.6; Monocytes # (A) 0.5 k/uL (0-1.0); Monocytes % (A) 6 %; Neutrophils # (A) 6.4 k/uL (1.3-7.7); Neutrophils % (A) 74 %; Platelet Count 177 k/uL (150-450); RBC 3.28 m/uL (4.30-5.90); RDW 16.8 % (11.5-15.5); WBC 8.7 k/uL (3.8-10.6)
[2018-01-14 04:47] LABS: Calcium 7.2 mg/dL (8.4-10.2); Potassium 3.3 mmol/L (3.5-5.1)
[2018-01-14] MEDS ORDERED: Potassium Replacement Protocol 1 EACH MISC MISCELLANE PRN (04:54)
[2018-01-14] MEDS: POTASSIUM CHLORIDE ER 20 MEQ TAB.ER PO SCH ×2 (05:09→06:24)
[2018-01-14] MEDS: MIDODRINE 5 MG TAB PO SCH ×3 (06:31→16:57)
[2018-01-14] MEDS: IPRATROPIUM-ALBUTEROL 3 ML NEB INHALATION SCH ×4 (07:11→20:04)
[2018-01-14] MEDS: BUDESONIDE 1 MG/2 ML NEBU INHALATION SCH ×2 (07:12→20:04)
[2018-01-14] MEDS: FORMOTEROL FUMARATE 20 MCG/2 ML NEBU INHALATION SCH ×2 (07:14→20:15)
--- NOTE | 2018-01-14 07:55 | XR ---
EXAMINATION TYPE: XR chest 1V portable DATE OF EXAM: 01/14/2018 CLINICAL HISTORY: Difficulty breathing progress study. TECHNIQUE: Single AP portable upright view of the chest is obtained. COMPARISON: Chest x-ray from one day earlier and older studies. FINDINGS: Metallic hardware from right shoulder surgery is partially imaged. Cardiac silhouette size is stable and upper limits of normal with atherosclerotic thoracic aorta. Improved aeration left selina g base is seen on current study. New minimal patchy right basilar atelectasis. Upper lungs are clear without pneumothorax. IMPRESSION: Resolved left basilar atelectasis, new patchy right basilar atelectasis.
[2018-01-14] MEDS: PANTOPRAZOLE 40 MG/10 ML VIAL IV SCH (08:06)
[2018-01-14] MEDS: HEPARIN SODIUM,PORCINE 5,000 UNIT/ML 1 ML VIAL SQ SCH ×3 (08:06→17:04)
[2018-01-14] MEDS: MAGNESIUM OXIDE 400 MG TAB PO SCH ×3 (08:07→21:42)
[2018-01-14] MEDS: NADOLOL 20 MG TAB PO SCH ×2 (08:07→19:19)
[2018-01-14] MEDS: DIPHENOX-ATROP 2.5-0.025 MG 1 EACH TAB PO SCH ×2 (08:07→20:00)
[2018-01-14] MEDS: NICOTINE 14MG/24HR PATCH TRANSDERM SCH ×2 (08:07→08:10)
[2018-01-14] MEDS: NOREPINEPHRINE 16 MG in SODIUM CHLORIDE 0.9% 250 ML IV SCH (10:02)
--- NOTE | 2018-01-14 10:02 | P.PN ---
Subjective Patient is seen in follow for acute kidney injury. Renal function is improving with creatinine around 1.89 today. Currently on 19 mics of Levophed. He is nonoliguric. Oral intake is fair. Denies any active chest pain or shortness of breath. Midodrine was started on January 13. Currently maintained on normal saline at 75 mL an hour. Vital signs are stable. General: The patient appeared well nourished and normally developed. HEENT: Head exam is unremarkable. Neck is without jugular venous distension. LUNGS: Lungs are clear to auscultation and percussion. Breath sounds decreased. HEART: Rate and Rhythm are regular. First and second heart sounds normal. No murmurs, rubs or gallops. ABDOMEN: Abdominal exam reveals normal bowel sounds. Non-tender and non- distended. No evidence of peritonitis. EXTREMITITES: No clubbing, cyanosis, or edema. Objective - Vital Signs Vital signs: Vital Signs Temp 98.3 F 01/14/18 08:00 Pulse 92 01/14/18 09:45 Resp 16 01/14/18 09:45 BP 115/66 01/14/18 09:45 Pulse Ox 100 01/14/18 09:45 Intake & Output 01/13/18 01/14/18 01/14/18 18:59 06:59 18:59 Intake Total 2038.421 1315.272 300 Output Total 2400 1725 400 Balance -361.579 -409.728 -100 Weight 64.5 kg Intake: IV 875 950 300 Piperacillin-Tazobactam 3 50 .375 gm In Dextrose/Water 1 50ml.bag @ 12.5 mls/hr [facility]PB [facility] Rx#: [id number] Piperacillin-Tazobactam 3 50 .375 gm In Dextrose/Water 1 50ml.bag @ 12.5 mls/hr IVPB Q12H [facility] Rx#: [id number] Sodium Chloride 0.9% 1, 825 900 300 000 ml @ 75 mls/hr IV . [id number] [facility] Rx#:[id number] Intake, IV Titration 614.421 365.272 Amount Norepinephrine 16 mg In 114.421 365.272 Sodium Chloride 0.9% 250 ml @ Titrate IV .Q0M [facility] Rx#:[id number] Sodium Chloride 0.9% 1, 500 000 ml @ 999 mls/hr IV . Q1H1M [facility] Rx#:[id number] Oral 549 Output: Urine 2400 1725 400 Other: Voiding Method Indwelling Catheter Indwelling Catheter - Labs CBC & Chem 7: 01/14/18 04:20 01/14/18 04:20 Labs: Abnormal Lab Results - Last 24 Hours (Table) 01/13/18 01/14/18 01/14/18 Range/Units 04:58 04:20 04:20 RBC 3.28 L (4.30-5.90) m/uL Hgb 8.6 L (13.0-17.5) gm/dL Hct 28.2 L (39.0-53.0) % MCHC 30.6 L (31.0-37.0) g/dL RDW 16.8 H (11.5-15.5) % Sodium 135 L (137-145) mmol/L Potassium 3.3 L (3.5-5.1) mmol/L BUN 26 H (9-20) mg/dL Creatinine 1.89 H (0.66-1.25) mg/dL Glucose 121 H (74-99) mg/dL Calcium 7.2 L (8.4-10.2) mg/dL Iron 23 L (65-175) ug/dL Iron Saturation 9.96 L (15.00-50.00) Creatine Kinase 298 H (55-170) U/L Microbiology - Last 24 Hours (Table) 01/12/18 16:53 Urine Culture - Final Urine,Voided 01/12/18 16:03 Blood Culture - Preliminary Blood No Growth after 24 hours Assessment and Plan Plan: Assessment: 1. Nonoliguric acute kidney injury mostly prerenal improving with IV hydration. Creatinine was 6.99 on admission and is down to 1.89 today. Baseline creatinine is near 1. 2. Hypotension maintained on 19 mics of Levophed. Cortisol level normal. 3. Systolic CHF with ejection fraction of less than 20% with mild to moderate mitral and tricuspid regurgitation. Compensated. 4. Septic shock. Source likely being UTI. 5. Anemia. Iron deficiency noted. 6. Hypovolemic hyponatremia improved with IV hydration. 7. Hypokalemia due to recovering renal function. Status post replacement. Plan: Continue normal saline at 75 mL an hour. Follow-up cultures. Avoid nephrotoxins. Maintain midodrine. Wean levophed. Continue to monitor renal function and urine output. Ferrlecit 125 mg IV daily for 3 days. First dose today.
[2018-01-14] MEDS ORDERED: SODIUM CHLORIDE 0.9% 1,000 ML IV ONE (10:08)
--- NOTE | 2018-01-14 11:07 | P.PN ---
Subjective Progress Note Date: 01/14/18 Principal diagnosis: Acute hypotension, hypovolemic and cardiogenic in nature. This is a 72-year-old white male with history of severe LV dysfunction, ejection fraction is supposedly 20%, COPD, chronic alcohol use, paroxysmal atrial fibrillation, patient was brought into the ER yesterday by EMS with altered mental status. Supposedly the patient has a parole board member, and it was his neighbor who actually called EMS for left assist. When EMS arrived on the scene , the patient was on the ground, unknown how long he has been on the floor. Looking back at the patient's history in the chart, patient was recently admitted to the hospital, and he was discharged home on 12/16/2015. His medical problems at that time included paroxysmal atrial fibrillation with RVR, COPD exacerbation, acute kidney injury, severe alcohol abuse, nicotine dependence, nonischemic cardiomyopathy with LV dysfunction, ejection fraction of 20%, chronic systolic congestive heart failure, hypertension, and previous history of CVA. The patient himself is a very poor historian. In the ER, the patient was noted to be hypotensive, no clear-cut evidence of sepsis, patient was given fluid boluses, did not improve much, hence a central line was placed by the ER physician, and he was placed on norepinephrine drip. Presently the patient remains on norepinephrine at 20 mcg/m. Blood pressure remains marginal, his hypotension was felt to be secondary to cardiogenic shock, possible hypovolemic shock. His creatinine on this admission was 6.99, and today it is 4.62. In the ER his systolic blood pressure was in the 50s upon arrival. Patient was also placed on antibiotics empirically although no clear-cut evidence of infection at this point. Patient was reevaluated today on 01/14/2018, remains in the intensive care unit, remains on 18 g of norepinephrine, blood pressure remains marginal. Patient received a total of 3-1/2 L of fluids, urine output has been excellent about 75 mL/h, his renal functioning has shown a significant improvement today. Creatinine is 1.89 today compared to 6.99 on admission. More fluids will be given today, we'll continue to titrate the norepinephrine down as tolerated maintaining a mean arterial pressure of 65 or higher. Seen by cardiology, and felt that the patient has severe cardiomyopathy and LV dysfunction. Chest x- ray showed right basilar atelectasis, left side is significantly improved over the last 24 hours. No more atelectasis or consolidation. All his labs were reviewed including CBC and basic metabolic profile. Potassium is a bit on the low side 3.3 being corrected as per protocol. His lactic acid was 1.7 on 917/ cultures so far are negative. Patient remains on empiric antibiotics. He will have a modified barium swallow today. Objective - Vital Signs Vital signs: Vital Signs Temp 98.3 F 01/14/18 08:00 Pulse 92 01/14/18 09:45 Resp 16 01/14/18 09:45 BP 115/66 01/14/18 09:45 Pulse Ox 100 01/14/18 09:45 Intake & Output 01/13/18 01/14/18 01/14/18 18:59 06:59 18:59 Intake Total 2038.421 1315.272 371.875 Output Total 2400 1725 400 Balance -361.579 -409.728 -28.125 Weight 64.5 kg Intake: IV 875 950 300 Piperacillin-Tazobactam 3 50 .375 gm In Dextrose/Water 1 50ml.bag @ 12.5 mls/hr IVPB ONCE [facility] Rx#: [id number] Piperacillin-Tazobactam 3 50 .375 gm In Dextrose/Water 1 50ml.bag @ 12.5 mls/hr IVPB Q12H [facility] Rx#: [id number] Sodium Chloride 0.9% 1, 825 900 300 000 ml @ 75 mls/hr IV . [id number] [facility] Rx#:[id number] Intake, IV Titration 614.421 365.272 71.875 Amount Norepinephrine 16 mg In 114.421 365.272 71.875 Sodium Chloride 0.9% 250 ml @ Titrate IV .Q0M [facility] Rx#:[id number] Sodium Chloride 0.9% 1, 500 000 ml @ 999 mls/hr IV . Q1H1M [facility] Rx#:[id number] Oral 549 Output: Urine 2400 1725 400 Other: Voiding Method Indwelling Catheter Indwelling Catheter - Exam Physical Exam: Revealed a 72-year-old white male, more alert today, in no form of respiratory distress. Head: Normocephalic, atraumatic, moist mucous membranes. Lymphatics: No lymphadenopathy. HEENT:[Neck is supple.] [No neck masses.] [No thyromegaly.] [No JVD.] No icterus. Moist mucous membranes. Chest: [Diminished breath sounds at the bases, minimal fine crackles at the right base, no wheezes. Symmetrical chest expansion, no chest wall tenderness.] Cardiac Exam: [Normal S1 and S2, no S3 gallop, no murmur.] Abdomen: [Skaff 48, soft, nontender, no rebound no guarding, positive bowel sounds..] Extremities: [No erythema clubbing or cyanosis. Neurological Exam: [Alert oriented 3, no gross focal neurologic deficit noted today. Confusion significantly improved. - Labs CBC & Chem 7: 01/14/18 04:20 01/14/18 04:20 Labs: Abnormal Lab Results - Last 24 Hours (Table) 01/13/18 01/14/18 01/14/18 Range/Units 04:58 04:20 04:20 RBC 3.28 L (4.30-5.90) m/uL Hgb 8.6 L (13.0-17.5) gm/dL Hct 28.2 L (39.0-53.0) % MCHC 30.6 L (31.0-37.0) g/dL RDW 16.8 H (11.5-15.5) % Sodium 135 L (137-145) mmol/L Potassium 3.3 L (3.5-5.1) mmol/L BUN 26 H (9-20) mg/dL Creatinine 1.89 H (0.66-1.25) mg/dL Glucose 121 H (74-99) mg/dL Calcium 7.2 L (8.4-10.2) mg/dL Iron 23 L (65-175) ug/dL Iron Saturation 9.96 L (15.00-50.00) Creatine Kinase 298 H (55-170) U/L Microbiology - Last 24 Hours (Table) 01/12/18 16:53 Urine Culture - Final Urine,Voided 01/12/18 16:03 Blood Culture - Preliminary Blood No Growth after 24 hours Assessment and Plan Assessment: Impression: 1 profound hypotension on presentation secondary to hypovolemia and cardiogenic shock, strongly doubt sepsis. And doubt septic shock. 2 acute kidney injury with acute tubular necrosis related to hypotension significantly improved since admission. However not back to normal. 3 chronic systolic congestive heart failure and LV dysfunction with ejection fraction of 20%. 4 history of multiple comorbidities including chronic anemia, chronic alcoholism , degenerative joint disease, nicotine dependence, and severe protein calorie malnutrition with BMI of 19.5. Recommendation: Continue present treatment plan including pressors, IV fluids, GI and DVT prophylaxis, nutritional support, barium swallow is scheduled to be done today, as long as the patient remains on norepinephrine, we will continue to monitor in the ICU. Time with Patient: Less than 30
[2018-01-14] MEDS: SODIUM FERRIC GLUCONAT-SUCROSE 125 MG in SODIUM CHLORIDE 0.9% 100 ML IVPB SCH (11:31)
[2018-01-14] MEDS: MULTIVITAMINS, THERA 1 EACH TAB PO SCH (11:32)
[2018-01-14] MEDS: THIAMINE 100 MG TAB PO SCH (11:32)
[2018-01-14] MEDS: FOLIC ACID 1 MG TAB PO SCH (11:32)
[2018-01-14] MEDS: PIPERACILLIN-TAZOBACTAM 3.375 GM in DEXTROSE/WATER 1 50ML.BAG IVPB SCH (11:32)
[2018-01-14] MEDS: SODIUM CHLORIDE 0.9% 1,000 ML IV SCH (13:48)
[2018-01-14] MEDS: ACETAMINOPHEN TAB 500 MG TAB PO PRN (19:51)
[2018-01-14] MEDS: POTASSIUM CHLORIDE 20 MEQ in WATER FOR INJECTION 1 100ML.BAG IVPB SCH ×2 (19:51→21:48)
[2018-01-14] MEDS: TAMSULOSIN 0.4 MG CAP.ER.24H PO SCH (20:00)
--- NOTE | 2018-01-14 23:29 | P.PN ---
Subjective Progress Note Date: 01/13/18 Principal diagnosis: Hypotensive shock A. fib with RVR This is a 72-year-old white male with history of severe LV dysfunction, ejection fraction is supposedly 20%, COPD, chronic alcohol use, paroxysmal atrial fibrillation, patient was brought into the ER by EMS with altered mental status. Patient does have a history of paroxysmal atrial fibrillation with RVR, COPD exacerbation, acute kidney injury, severe alcohol abuse, nicotine dependence, nonischemic cardiomyopathy with LV dysfunction, ejection fraction of 20%, chronic systolic congestive heart failure, hypertension, and previous history of CVA. he was discharged home on 12/16/2015. The patient himself is a very poor historian. In the ER, the patient was noted to be hypotensive, no clear-cut evidence of sepsis, patient was given fluid boluses, did not improve much, hence a central line was placed by the ER physician, and he was placed on norepinephrine drip. Presently the patient remains on norepinephrine at 20 mcg/m. His creatinine on this admission was 6.99, and today it is 4.62. In the ER his systolic blood pressure was in the 50s upon arrival. Patient was also placed on antibiotics empirically. 01/13/2018 Patient remained on norepinephrine 20 g per mL. Denied any complaints of chest pain or shortness of breath. Patient is otherwise poor historian. No leg swelling. Patient is being continued on antibiotics in the form of Zosyn empirically. Pulmonary and cardiology is following. No fever no chills. No nausea vomiting or diarrhea. Patient remained in A. fib. Heart rate is controlled now. Current medications reviewed.. Objective - Vital Signs Vital signs: Vital Signs Temp 98.5 F 01/13/18 14:00 Pulse 79 01/13/18 14:15 Resp 16 01/13/18 14:15 BP 88/58 01/13/18 14:15 Pulse Ox 98 01/13/18 14:15 Intake & Output 01/12/18 01/13/18 01/13/18 18:59 06:59 18:59 Intake Total 15.700 2109.247 1214.421 Output Total 25 1105 1450 Balance -9.300 1004.247 -235.579 Weight 65.317 kg 62.9 kg Intake: IV 1950 525 Piperacillin-Tazobactam 3 50 .375 gm In Dextrose/Water 1 50ml.bag @ 12.5 mls/hr IVPB [facility] Rx#: [id number] Sodium Chloride 0.9% 1, 900 525 000 ml @ 75 mls/hr IV . [id number] [facility] Rx#:[id number] Sodium Chloride 0.9% 1, 1000 000 ml @ 999 mls/hr IV . Q1H1M [facility] Rx#:[id number] Intake, IV Titration 15.700 159.247 614.421 Amount Norepinephrine 16 mg In 15.700 159.247 114.421 Sodium Chloride 0.9% 250 ml @ Titrate IV .Q0M [facility] Rx#:[id number] Sodium Chloride 0.9% 1, 500 000 ml @ 999 mls/hr IV . Q1H1M [facility] Rx#:[id number] Oral 75 Output: Urine 25 1105 1450 Uretheral (Price) 25 Other: Voiding Method Indwelling Catheter Indwelling Catheter - Exam PHYSICAL EXAMINATION: Patient is lying in the bed comfortably, no acute distress, awake alert and oriented.. HEENT: Normocephalic. Neck is supple. Pupils reactive. Nostrils clear. Oral cavity is moist. Ears reveal no drainage. Neck reveals no JVD, carotid bruits, or thyromegaly. CHEST EXAMINATION: Trachea is central. Symmetrical expansion. Lung rocha clear to auscultation and percussion. CARDIAC: Normal S1, S2 with no gallops. No murmurs . Irregularly irregular rhythm ABDOMEN: Soft. Bowel sounds normal. No organomegaly. No abdominal bruits. Extremities: reveal no edema. No clubbing or cyanosis Neurologically awake, alert, oriented x2-3 with well-coordinated movements. No focal deficits noted Skin: No rash or skin lesions. Psychiatric: Coperative. Nonsuicidal Musculoskeletal: No joint swelling or deformity. Normal range of motion. - Labs CBC & Chem 7: 01/14/18 04:20 01/14/18 15:29 Labs: Abnormal Lab Results - Last 24 Hours (Table) 01/12/18 01/12/18 01/12/18 Range/Units 16:03 16:03 16:03 WBC 13.7 H (3.8-10.6) k/uL RBC 4.11 L (4.30-5.90) m/uL Hgb 10.7 L (13.0-17.5) gm/dL Hct 35.9 L (39.0-53.0) % MCHC 29.8 L (31.0-37.0) g/dL RDW 16.8 H (11.5-15.5) % Neutrophils # 10.4 H (1.3-7.7) k/uL Sodium 133 L (137-145) mmol/L Chloride 92 L (98-107) mmol/L BUN 62 H (9-20) mg/dL Creatinine 6.99 H (0.66-1.25) mg/dL Glucose (74-99) mg/dL Calcium 7.9 L (8.4-10.2) mg/dL Phosphorus (2.5-4.5) mg/dL Magnesium 2.5 H (1.6-2.3) mg/dL Creatine Kinase 407 H (55-170) U/L Troponin I 0.069 H* (0.000-0.034) ng/mL Total Protein 5.4 L (6.3-8.2) g/dL Albumin 2.9 L (3.5-5.0) g/dL Urine Protein (Negative) Urine Blood (Negative) Ur Leukocyte Esterase (Negative) Urine WBC (0-5) /hpf Urine Bacteria (None) /hpf Hyaline Casts (0-2) /lpf Urine Mucus (None) /hpf 01/12/18 01/12/18 01/13/18 Range/Units 16:53 22:33 04:58 WBC (3.8-10.6) k/uL RBC 3.36 L (4.30-5.90) m/uL Hgb 8.8 L D (13.0-17.5) gm/dL Hct 28.9 L (39.0-53.0) % MCHC 30.6 L (31.0-37.0) g/dL RDW 16.8 H (11.5-15.5) % Neutrophils # (1.3-7.7) k/uL Sodium (137-145) mmol/L Chloride (98-107) mmol/L BUN (9-20) mg/dL Creatinine (0.66-1.25) mg/dL Glucose (74-99) mg/dL Calcium (8.4-10.2) mg/dL Phosphorus (2.5-4.5) mg/dL Magnesium (1.6-2.3) mg/dL Creatine Kinase (55-170) U/L Troponin I 0.052 H* (0.000-0.034) ng/mL Total Protein (6.3-8.2) g/dL Albumin (3.5-5.0) g/dL Urine Protein 1+ H (Negative) Urine Blood Small H (Negative) Ur Leukocyte Esterase Moderate H (Negative) Urine WBC 16 H (0-5) /hpf Urine Bacteria Occasional H (None) /hpf Hyaline Casts 16 H (0-2) /lpf Urine Mucus Rare H (None) /hpf 01/13/18 Range/Units 04:58 WBC (3.8-10.6) k/uL RBC (4.30-5.90) m/uL Hgb (13.0-17.5) gm/dL Hct (39.0-53.0) % MCHC (31.0-37.0) g/dL RDW (11.5-15.5) % Neutrophils # (1.3-7.7) k/uL Sodium 136 L (137-145) mmol/L Chloride (98-107) mmol/L BUN 50 H (9-20) mg/dL Creatinine 4.62 H (0.66-1.25) mg/dL Glucose 106 H (74-99) mg/dL Calcium 6.8 L (8.4-10.2) mg/dL Phosphorus 5.0 H (2.5-4.5) mg/dL Magnesium (1.6-2.3) mg/dL Creatine Kinase 553 H (55-170) U/L Troponin I (0.000-0.034) ng/mL Total Protein (6.3-8.2) g/dL Albumin (3.5-5.0) g/dL Urine Protein (Negative) Urine Blood (Negative) Ur Leukocyte Esterase (Negative) Urine WBC (0-5) /hpf Urine Bacteria (None) /hpf Hyaline Casts (0-2) /lpf Urine Mucus (None) /hpf Microbiology - Last 24 Hours (Table) 01/12/18 16:53 Urine Culture - Preliminary Urine,Voided Assessment and Plan Assessment: Acute hypotension likely due to hypovolemic versus cardiogenic shock Nonoliguric acute kidney injury possible ATN due to hypotension and decreased renal perfusion. Creatinine 4.62 Chronic CHF with systolic dysfunction Anemia of chronic disease rule out iron deficiency. Atrial fibrillation with rapid ventricular rate. Rate is controlled now. History of alcohol abuse Hypovolemic hyponatremia Hypokalemia Nonischemic cardiopathy ejection fraction 20% Severe protein calorie malnutrition Ongoing nicotine addiction DVT prophylaxis Plan: Patient will be continued on Levophed. Continue with empiric antibiotics and IV hydration. Follow up renal function. Heart rate is controlled otherwise. Patient is being followed by cardiology and pulmonary and nephrology. His Time with Patient: Greater than 30
--- NOTE | 2018-01-14 23:31 | P.PN ---
Subjective Progress Note Date: 01/14/18 Principal diagnosis: Hypotensive shock A. fib with RVR Acute kidney injury This is a 72-year-old white male with history of severe LV dysfunction, ejection fraction is supposedly 20%, COPD, chronic alcohol use, paroxysmal atrial fibrillation, patient was brought into the ER by EMS with altered mental status. Patient does have a history of paroxysmal atrial fibrillation with RVR, COPD exacerbation, acute kidney injury, severe alcohol abuse, nicotine dependence, nonischemic cardiomyopathy with LV dysfunction, ejection fraction of 20%, chronic systolic congestive heart failure, hypertension, and previous history of CVA. he was discharged home on 12/16/2015. The patient himself is a very poor historian. In the ER, the patient was noted to be hypotensive, no clear-cut evidence of sepsis, patient was given fluid boluses, did not improve much, hence a central line was placed by the ER physician, and he was placed on norepinephrine drip. Presently the patient remains on norepinephrine at 20 mcg/m. His creatinine on this admission was 6.99, and today it is 4.62. In the ER his systolic blood pressure was in the 50s upon arrival. Patient was also placed on antibiotics empirically. 01/13/2018 Patient remained on norepinephrine 20 g per mL. Denied any complaints of chest pain or shortness of breath. Patient is otherwise poor historian. No leg swelling. Patient is being continued on antibiotics in the form of Zosyn empirically. Pulmonary and cardiology is following. No fever no chills. No nausea vomiting or diarrhea. Patient remained in A. fib. Heart rate is controlled now. 01/14/2018 Patient is on Levophed at 12 g daily. Denied any complaints of chest pain or shortness of breath. Heart rate is controlled. Patient was started on Midodrin. Renal function improved with creatinine level trending down. Continued on empiric antibiotics. No fever no chills. Current medications reviewed.. Objective - Vital Signs Vital signs: Vital Signs Temp 97.7 F 01/14/18 20:00 Pulse 82 01/14/18 21:00 Resp 18 01/14/18 21:00 BP 91/62 01/14/18 21:00 Pulse Ox 100 01/14/18 21:00 Intake & Output 01/14/18 01/14/18 01/15/18 06:59 18:59 06:59 Intake Total 4983.938 2953.144 352.402 Output Total 1725 1125 250 Balance -409.728 53.144 102.402 Weight 64.5 kg Intake: IV 950 775 75 Piperacillin-Tazobactam 3 50 .375 gm In Dextrose/Water 1 50ml.bag @ 12.5 mls/hr IVPB Q12H REPLACED BY [facility] Rx#: [id number] Sodium Chloride 0.9% 1, 900 675 75 000 ml @ 75 mls/hr IV . [id number] Rx#:[id number] Sodium Chloride 0.9% 1, 100 000 ml @ 999 mls/hr IV . Q1H1M [facility] Rx#:[id number] Intake, IV Titration 365.272 403.144 277.402 Amount Norepinephrine 16 mg In 365.272 103.144 77.402 Sodium Chloride 0.9% 250 ml @ Titrate IV .Q0M REPLACED BY [facility] Rx#:[id number] Potassium Chloride 20 meq 50 In Water For Injection 1 100ml.bag @ 50 mls/hr IVPB Q2H REPLACED BY [facility] Rx#: [id number] Sodium Chloride 0.9% 1, 150 150 000 ml @ 75 mls/hr IV . [id number] REPLACED BY [facility] Rx#:[id number] Sodium Chloride 0.9% 1, 150 000 ml @ 999 mls/hr IV . Q1H1M [facility] Rx#:[id number] Output: Urine 1725 1125 250 Other: Voiding Method Indwelling Catheter Indwelling Catheter Indwelling Catheter - Exam PHYSICAL EXAMINATION: Patient is lying in the bed comfortably, no acute distress, awake alert and oriented.. HEENT: Normocephalic. Neck is supple. Pupils reactive. Nostrils clear. Oral cavity is moist. Ears reveal no drainage. Neck reveals no JVD, carotid bruits, or thyromegaly. CHEST EXAMINATION: Trachea is central. Symmetrical expansion. Lung rocha clear to auscultation and percussion. CARDIAC: Normal S1, S2 with no gallops. No murmurs . Irregularly irregular rhythm ABDOMEN: Soft. Bowel sounds normal. No organomegaly. No abdominal bruits. Extremities: reveal no edema. No clubbing or cyanosis Neurologically awake, alert, oriented x2-3 with well-coordinated movements. No focal deficits noted Skin: No rash or skin lesions. Psychiatric: Coperative. Nonsuicidal Musculoskeletal: No joint swelling or deformity. Normal range of motion. - Labs CBC & Chem 7: 01/14/18 04:20 01/14/18 15:29 Labs: Abnormal Lab Results - Last 24 Hours (Table) 01/14/18 01/14/18 Range/Units 04:20 04:20 RBC 3.28 L (4.30-5.90) m/uL Hgb 8.6 L (13.0-17.5) gm/dL Hct 28.2 L (39.0-53.0) % MCHC 30.6 L (31.0-37.0) g/dL RDW 16.8 H (11.5-15.5) % Sodium 135 L (137-145) mmol/L Potassium 3.3 L (3.5-5.1) mmol/L BUN 26 H (9-20) mg/dL Creatinine 1.89 H (0.66-1.25) mg/dL Glucose 121 H (74-99) mg/dL Calcium 7.2 L (8.4-10.2) mg/dL Creatine Kinase 298 H (55-170) U/L Microbiology - Last 24 Hours (Table) 01/12/18 16:03 Blood Culture - Preliminary Blood No Growth after 48 hours 01/12/18 16:53 Urine Culture - Final Urine,Voided Assessment and Plan Assessment: Acute hypotension likely due to hypovolemic versus cardiogenic shock Nonoliguric acute kidney injury possible ATN due to hypotension and decreased renal perfusion. Creatinine 4.62 Chronic CHF with systolic dysfunction Anemia of chronic disease rule out iron deficiency. Atrial fibrillation with rapid ventricular rate. Rate is controlled now. History of alcohol abuse Hypovolemic hyponatremia Hypokalemia Nonischemic cardiopathy ejection fraction 20% Severe protein calorie malnutrition Ongoing nicotine addiction DVT prophylaxis Plan: Patient will be continued on Levophed. Continue with empiric antibiotics and IV hydration. Started on Midodrin. Follow up renal function is improving.. Heart rate is controlled otherwise. Patient is being followed by cardiology and pulmonary and nephrology. Further recommendations based on the clinical course. Prognosis is guarded. Time with Patient: Greater than 30
[2018-01-15] MEDS: HEPARIN SODIUM,PORCINE 5,000 UNIT/ML 1 ML VIAL SQ SCH ×4 (01:04→23:48)
[2018-01-15] MEDS: PIPERACILLIN-TAZOBACTAM 3.375 GM in DEXTROSE/WATER 1 50ML.BAG IVPB SCH ×3 (01:05→20:27)
[2018-01-15 04:49] LABS: Anisocytosis Slight; Basophils % (A) 0 %; Eosinophils # (A) 0.1 k/uL (0-0.7); Eosinophils % (A) 1 %; HGB 7.7 gm/dL (13.0-17.5); Hypochromasia Marked; Lymphocytes # (A) 1.2 k/uL (1.0-4.8); Lymphocytes % (A) 23 %; MCH 25.7 pg (25.0-35.0); MCHC 29.7 g/dL (31.0-37.0); MCV 86.6 fL (80.0-100.0); Mean Platelet Volume 7.7; Monocytes # (A) 0.3 k/uL (0-1.0); Monocytes % (A) 6 %; Neutrophils # (A) 3.6 k/uL (1.3-7.7); Neutrophils % (A) 68 %; Platelet Count 115 k/uL (150-450); RBC 3.01 m/uL (4.30-5.90); RDW 16.7 % (11.5-15.5); WBC 5.3 k/uL (3.8-10.6)
[2018-01-15 04:56] LABS: Calcium 7.1 mg/dL (8.4-10.2)
[2018-01-15] MEDS: IPRATROPIUM-ALBUTEROL 3 ML NEB INHALATION SCH ×4 (07:17→18:55)
[2018-01-15] MEDS: BUDESONIDE 1 MG/2 ML NEBU INHALATION SCH ×2 (07:17→18:55)
[2018-01-15] MEDS: FORMOTEROL FUMARATE 20 MCG/2 ML NEBU INHALATION SCH ×2 (07:17→18:55)
[2018-01-15] MEDS: NADOLOL 20 MG TAB PO SCH (08:01)
[2018-01-15] MEDS: NICOTINE 14MG/24HR PATCH TRANSDERM SCH (08:01)
[2018-01-15] MEDS: SODIUM CHLORIDE 0.9% 1,000 ML IV SCH ×3 (08:09→20:32)
[2018-01-15] MEDS: DIPHENOX-ATROP 2.5-0.025 MG 1 EACH TAB PO SCH ×2 (08:10→20:27)
[2018-01-15] MEDS: MAGNESIUM OXIDE 400 MG TAB PO SCH ×3 (08:10→22:41)
[2018-01-15] MEDS: PANTOPRAZOLE 40 MG/10 ML VIAL IV SCH (08:10)
[2018-01-15] MEDS: MIDODRINE 5 MG TAB PO SCH ×3 (08:10→16:54)
[2018-01-15] MEDS ORDERED: SODIUM CHLORIDE 0.9% 1,000 ML IV ONE (10:14)
[2018-01-15] MEDS: SODIUM FERRIC GLUCONAT-SUCROSE 125 MG in SODIUM CHLORIDE 0.9% 100 ML IVPB SCH (10:15)
--- NOTE | 2018-01-15 10:15 | FL ---
Modified barium swallow. HISTORY: Dysphagia. Modified barium swallow was performed with the department of speech pathology. The patient was prese nted with various consistencies of barium. There is no evidence for aspiration. One episode of transient penetration with thin liquid barium. Va llecular residuals. Full report is to follow from the department of speech pathology. Impression: One episode of transient penetration with thin liquid barium. Vallecular residuals.
--- NOTE | 2018-01-15 10:38 | P.PN ---
Subjective Patient is seen in follow for acute kidney injury. Renal function is improving with creatinine 0.99 today. Currently off Levophed. He is nonoliguric. Oral intake is fair. Denies any active chest pain or shortness of breath. Midodrine was started on January 13. Currently maintained on normal saline at 75 mL an hour. He is also receiving 1 L normal saline bolus. Vital signs are stable. General: The patient appeared well nourished and normally developed. HEENT: Head exam is unremarkable. Neck is without jugular venous distension. LUNGS: Lungs are clear to auscultation and percussion. Breath sounds decreased. HEART: Rate and Rhythm are regular. First and second heart sounds normal. No murmurs, rubs or gallops. ABDOMEN: Abdominal exam reveals normal bowel sounds. Non-tender and non- distended. No evidence of peritonitis. EXTREMITITES: No clubbing, cyanosis, or edema. Objective - Vital Signs Vital signs: Vital Signs Temp 98.5 F 01/15/18 04:00 Pulse 90 01/15/18 07:34 Resp 16 01/15/18 08:00 BP 105/71 01/15/18 07:30 Pulse Ox 100 01/15/18 07:30 Intake & Output 01/14/18 01/15/18 01/15/18 18:59 06:59 18:59 Intake Total 8941.712 1680.027 53.847 Output Total 1125 1020 100 Balance 53.144 46.027 -46.153 Weight 65.5 kg Intake: IV 775 750 Sodium Chloride 0.9% 1, 675 750 000 ml @ 75 mls/hr IV . [id number] [facility] Rx#:[id number] Sodium Chloride 0.9% 1, 100 000 ml @ 999 mls/hr IV . Q1H1M [facility] Rx#:[id number] Intake, IV Titration 403.144 316.027 53.847 Amount Norepinephrine 16 mg In 103.144 116.027 53.847 Sodium Chloride 0.9% 250 ml @ Titrate IV .Q0M [facility] Rx#:[id number] Potassium Chloride 20 meq 50 In Water For Injection 1 100ml.bag @ 50 mls/hr IVPB Q2H [facility] Rx#: [id number] Sodium Chloride 0.9% 1, 150 150 000 ml @ 75 mls/hr IV . [id number] [facility] Rx#:[id number] Sodium Chloride 0.9% 1, 150 000 ml @ 999 mls/hr IV . Q1H1M [facility] Rx#:[id number] Output: Urine 1125 1020 100 Other: Voiding Method Indwelling Catheter Indwelling Catheter Indwelling Catheter - Labs CBC & Chem 7: 01/15/18 04:30 01/15/18 04:30 Labs: Abnormal Lab Results - Last 24 Hours (Table) 01/15/18 01/15/18 Range/Units 04:30 04:30 RBC 3.01 L (4.30-5.90) m/uL Hgb 7.7 L (13.0-17.5) gm/dL Hct 26.0 L (39.0-53.0) % MCHC 29.7 L (31.0-37.0) g/dL RDW 16.7 H (11.5-15.5) % Plt Count 115 L (150-450) k/uL Chloride 109 H (98-107) mmol/L Calcium 7.1 L (8.4-10.2) mg/dL Microbiology - Last 24 Hours (Table) 01/12/18 16:03 Blood Culture - Preliminary Blood No Growth after 48 hours Assessment and Plan Plan: Assessment: 1. Nonoliguric acute kidney injury mostly prerenal improving with IV hydration. Creatinine was 6.99 on admission and is down to 0.99 today. Baseline creatinine is near 1. 2. Hypotension currently off Levophed. Cortisol level normal. 3. Systolic CHF with ejection fraction of less than 20% with mild to moderate mitral and tricuspid regurgitation. Compensated. 4. Septic shock. Source likely being UTI. 5. Anemia. Iron deficiency noted. 6. Hypovolemic hyponatremia improved with IV hydration. 7. Hypokalemia due to recovering renal function. Status post replacement. Plan: Continue normal saline at 75 mL an hour. Follow-up cultures. Avoid nephrotoxins. Maintain midodrine. Continue to monitor renal function and urine output. Ferrlecit 125 mg IV daily for 3 days. Second dose today.
[2018-01-15] MEDS: FOLIC ACID 1 MG TAB PO SCH (11:49)
[2018-01-15] MEDS: ACETAMINOPHEN TAB 500 MG TAB PO PRN ×2 (11:51→16:56)
[2018-01-15] MEDS: THIAMINE 100 MG TAB PO SCH (11:52)
--- NOTE | 2018-01-15 13:36 | P.PN ---
Subjective Progress Note Date: 01/15/18 Principal diagnosis: Acute hypotension, hypovolemic and cardiogenic shock This is a 72-year-old white male with history of severe LV dysfunction, ejection fraction is supposedly 20%, COPD, chronic alcohol use, paroxysmal atrial fibrillation, patient was brought into the ER yesterday by EMS with altered mental status. 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 When EMS arrived on the scene , the patient was on the ground, unknown how long he has been on the floor. Looking back at the patient's history in the chart, patient was recently admitted to the hospital, and he was discharged home on 12/16/2015. His medical problems at that time included paroxysmal atrial fibrillation with RVR, COPD exacerbation, acute kidney injury, severe alcohol abuse, nicotine dependence, nonischemic cardiomyopathy with LV dysfunction, ejection fraction of 20%, chronic systolic congestive heart failure, hypertension, and previous history of CVA. The patient himself is a very poor historian. In the ER, the patient was noted to be hypotensive, no clear-cut evidence of sepsis, patient was given fluid boluses, did not improve much, hence a central line was placed by the ER physician, and he was placed on norepinephrine drip. Presently the patient remains on norepinephrine at 20 mcg/m. Blood pressure remains marginal, his hypotension was felt to be secondary to cardiogenic shock, possible hypovolemic shock. His creatinine on this admission was 6.99, and today it is 4.62. In the ER his systolic blood pressure was in the 50s upon arrival. Patient was also placed on antibiotics empirically although no clear-cut evidence of infection at this point. Patient was reevaluated today on 01/14/2018, remains in the intensive care unit, remains on 18 g of norepinephrine, blood pressure remains marginal. Patient received a total of 3-1/2 L of fluids, urine output has been excellent about 75 mL/h, his renal functioning has shown a significant improvement today. Creatinine is 1.89 today compared to 6.99 on admission. More fluids will be given today, we'll continue to titrate the norepinephrine down as tolerated maintaining a mean arterial pressure of 65 or higher. Seen by cardiology, and felt that the patient has severe cardiomyopathy and LV dysfunction. Chest x- ray showed right basilar atelectasis, left side is significantly improved over the last 24 hours. No more atelectasis or consolidation. All his labs were reviewed including CBC and basic metabolic profile. Potassium is a bit on the low side 3.3 being corrected as per protocol. His lactic acid was 1.7 on cultures so far are negative. Patient remains on empiric antibiotics. He will have a modified barium swallow today. Reevaluated today on 01/15/2018, patient is looking and feeling much better, he is down to 2 g of norepinephrine, hence I will give her more fluids today, and I will likely discontinue norepinephrine. His renal functioning is significantly improved. Creatinine is 0.99 today. And he will likely come off the levo fed easily. I plan to transfer the patient out of the ICU to a monitor bed on selective patient is also on midodrine and his IV fluid is maintained at 70 mL per hour. Clinically the patient feels great, he is relatively asymptomatic. No chest x-ray was done today, modified barium swallow showed one episode of transient penetration with thin liquid barium, and there was some vallecular residual. Final report from Department of speech pathology is pending. Objective - Vital Signs Vital signs: Vital Signs Temp 98.5 F 01/15/18 04:00 Pulse 104 H 01/15/18 12:00 Resp 18 01/15/18 12:00 BP 72/45 01/15/18 12:00 Pulse Ox 100 01/15/18 11:30 Intake & Output 01/14/18 01/15/18 01/15/18 18:59 06:59 18:59 Intake Total 3157.209 1587.027 1503.847 Output Total 1125 1020 445 Balance 53.144 46.027 1058.847 Weight 65.5 kg Intake: IV 775 750 75 Sodium Chloride 0.9% 1, 675 750 75 000 ml @ 75 mls/hr IV . [id number] [facility] Rx#:[id number] Sodium Chloride 0.9% 1, 100 000 ml @ 999 mls/hr IV . Q1H1M [facility] Rx#:[id number] Intake, IV Titration 403.144 864.229 0840.847 Amount Norepinephrine 16 mg In 103.144 116.027 53.847 Sodium Chloride 0.9% 250 ml @ Titrate IV .Q0M [facility] Rx#:[id number] Piperacillin-Tazobactam 3 50 .375 gm In Dextrose/Water 1 50ml.bag @ 12.5 mls/hr IVPB Q12H [facility] Rx#: [id number] Potassium Chloride 20 meq 50 In Water For Injection 1 100ml.bag @ 50 mls/hr IVPB Q2H [facility] Rx#: [id number] Sodium Chloride 0.9% 1, 150 150 75 000 ml @ 75 mls/hr IV . [id number] [facility] Rx#:[id number] Sodium Chloride 0.9% 1, 150 000 ml @ 999 mls/hr IV . Q1H1M [facility] Rx#:[id number] Sodium Chloride 0.9% 1, 1150 000 ml @ 999 mls/hr IV . Q1H1M [facility] Rx#:[id number] Sodium Ferric Gluconat- 100 Sucrose 125 mg In Sodium Chloride 0.9% 100 ml @ 100 mls/hr IVPB DAILY [facility] Rx#:[id number] Output: Urine 1125 1020 445 Other: Voiding Method Indwelling Catheter Indwelling Catheter Indwelling Catheter - Exam Physical Exam: Revealed a 72-year-old white male, awake, cooperative, on nasal cannula. Head: moist mucous membranes. Normocephalic. Lymphatics: No palpable lymph nodes HEENT:[PERRLA, EOMI, no neck masses. Dry mucous membranes noted. Chest: [Diminished breath sounds at the bases, minimal fine crackles at the right base, no wheezes. Cardiac Exam: [Normal S1 and S2, no S3 gallop, no murmur.] Abdomen: Nontender, soft, no megaly, no rebound, no guarding. Extremities: [No erythema clubbing or cyanosis. Neurological Exam: No gross focal neurologic deficit. - Labs CBC & Chem 7: 01/15/18 04:30 01/15/18 04:30 Labs: Abnormal Lab Results - Last 24 Hours (Table) 01/15/18 01/15/18 Range/Units 04:30 04:30 RBC 3.01 L (4.30-5.90) m/uL Hgb 7.7 L (13.0-17.5) gm/dL Hct 26.0 L (39.0-53.0) % MCHC 29.7 L (31.0-37.0) g/dL RDW 16.7 H (11.5-15.5) % Plt Count 115 L (150-450) k/uL Chloride 109 H (98-107) mmol/L Calcium 7.1 L (8.4-10.2) mg/dL Microbiology - Last 24 Hours (Table) 01/12/18 16:03 Blood Culture - Preliminary Blood No Growth after 48 hours Assessment and Plan Assessment: Impression: 1 profound hypotension secondary to hypovolemic and cardiogenic shock. No evidence of sepsis or septic shock. 2 acute kidney injury resolved, much better, creatinine is back to baseline. Patient is still being followed by nephrology. 3 chronic systolic congestive heart failure and LV dysfunction. Previous echocardiogram showed LV function to be compromised with ejection fraction of 20 %. 4 multiple comorbidities including protein calorie malnutrition, BMI of 19.5 degenerative joint disease and nicotine dependence chronic alcoholism and chronic anemia. Recommendation: Plan to discontinue norepinephrine today, continue fluid maintenance, continue midodrine, may eventually transfer the patient out of the ICU today. We'll continue to follow Time with Patient: Less than 30
[2018-01-15] MEDS: MULTIVITAMINS, THERA 1 EACH TAB PO SCH (15:35)
[2018-01-15] MEDS: NOREPINEPHRINE 16 MG in SODIUM CHLORIDE 0.9% 250 ML IV SCH (15:39)
[2018-01-15] MEDS: TAMSULOSIN 0.4 MG CAP.ER.24H PO SCH (20:27)
--- NOTE | 2018-01-15 23:46 | P.PN ---
Subjective Progress Note Date: 01/15/18 Principal diagnosis: Hypotensive shock A. fib with RVR Acute kidney injury This is a 72-year-old white male with history of severe LV dysfunction, ejection fraction is supposedly 20%, COPD, chronic alcohol use, paroxysmal atrial fibrillation, patient was brought into the ER by EMS with altered mental status. Patient does have a history of paroxysmal atrial fibrillation with RVR, COPD exacerbation, acute kidney injury, severe alcohol abuse, nicotine dependence, nonischemic cardiomyopathy with LV dysfunction, ejection fraction of 20%, chronic systolic congestive heart failure, hypertension, and previous history of CVA. he was discharged home on 12/16/2015. The patient himself is a very poor historian. In the ER, the patient was noted to be hypotensive, no clear-cut evidence of sepsis, patient was given fluid boluses, did not improve much, hence a central line was placed by the ER physician, and he was placed on norepinephrine drip. Presently the patient remains on norepinephrine at 20 mcg/m. His creatinine on this admission was 6.99, and today it is 4.62. In the ER his systolic blood pressure was in the 50s upon arrival. Patient was also placed on antibiotics empirically. 01/13/2018 Patient remained on norepinephrine 20 g per mL. Denied any complaints of chest pain or shortness of breath. Patient is otherwise poor historian. No leg swelling. Patient is being continued on antibiotics in the form of Zosyn empirically. Pulmonary and cardiology is following. No fever no chills. No nausea vomiting or diarrhea. Patient remained in A. fib. Heart rate is controlled now. 01/14/2018 Patient is on Levophed at 12 g daily. Denied any complaints of chest pain or shortness of breath. Heart rate is controlled. Patient was started on Midodrin. Renal function improved with creatinine level trending down. Continued on empiric antibiotics. No fever no chills. 01/15/2018 Patient is currently off Levophed drip. Blood pressure is maintained. Patient did go to swallow evaluation and was started on oral diet. Otherwise N function is normalized. Hemoglobin is 7.7 today. No compressive chest pain or shortness of breath. No fever no chills. Blood cultures and urine cultures are negative. Current medications reviewed.. Objective - Vital Signs Vital signs: Vital Signs Temp 98.2 F 01/15/18 20:00 Pulse 91 01/15/18 20:30 Resp 16 01/15/18 20:30 BP 80/53 01/15/18 20:30 Pulse Ox 98 01/15/18 20:30 Intake & Output 01/15/18 01/15/18 01/16/18 06:59 18:59 06:59 Intake Total 0052.637 1915.081 239.05 Output Total 1020 760 125 Balance 46.027 1194.081 114.05 Weight 65.5 kg Intake: IV 750 525 225 Sodium Chloride 0.9% 1, 750 525 225 000 ml @ 75 mls/hr IV . [id number] [facility] Rx#:[id number] Intake, IV Titration 734.773 4617.081 14.05 Amount Norepinephrine 16 mg In 116.027 54.081 14.05 Sodium Chloride 0.9% 250 ml @ Titrate IV .Q0M [facility] Rx#:[id number] Piperacillin-Tazobactam 3 50 .375 gm In Dextrose/Water 1 50ml.bag @ 12.5 mls/hr IVPB Q12H [facility] Rx#: [id number] Potassium Chloride 20 meq 50 In Water For Injection 1 100ml.bag @ 50 mls/hr IVPB Q2H [facility] Rx#: [id number] Sodium Chloride 0.9% 1, 150 75 000 ml @ 75 mls/hr IV . [id number] [facility] Rx#:[id number] Sodium Chloride 0.9% 1, 1150 000 ml @ 999 mls/hr IV . Q1H1M [facility] Rx#:[id number] Sodium Ferric Gluconat- 100 Sucrose 125 mg In Sodium Chloride 0.9% 100 ml @ 100 mls/hr IVPB DAILY [facility] Rx#:[id number] Output: Urine 1020 760 125 Other: Voiding Method Indwelling Catheter Indwelling Catheter - Exam PHYSICAL EXAMINATION: Patient is lying in the bed comfortably, no acute distress, awake alert and oriented.. HEENT: Normocephalic. Neck is supple. Pupils reactive. Nostrils clear. Oral cavity is moist. Ears reveal no drainage. Neck reveals no JVD, carotid bruits, or thyromegaly. CHEST EXAMINATION: Trachea is central. Symmetrical expansion. Lung rocha clear to auscultation and percussion. CARDIAC: Normal S1, S2 with no gallops. No murmurs . Irregularly irregular rhythm ABDOMEN: Soft. Bowel sounds normal. No organomegaly. No abdominal bruits. Extremities: reveal no edema. No clubbing or cyanosis Neurologically awake, alert, oriented x2-3 with well-coordinated movements. No focal deficits noted Skin: No rash or skin lesions. Psychiatric: Coperative. Nonsuicidal Musculoskeletal: No joint swelling or deformity. Normal range of motion. - Labs CBC & Chem 7: 01/15/18 04:30 01/15/18 04:30 Labs: Abnormal Lab Results - Last 24 Hours (Table) 01/15/18 01/15/18 Range/Units 04:30 04:30 RBC 3.01 L (4.30-5.90) m/uL Hgb 7.7 L (13.0-17.5) gm/dL Hct 26.0 L (39.0-53.0) % MCHC 29.7 L (31.0-37.0) g/dL RDW 16.7 H (11.5-15.5) % Plt Count 115 L (150-450) k/uL Chloride 109 H (98-107) mmol/L Calcium 7.1 L (8.4-10.2) mg/dL Microbiology - Last 24 Hours (Table) 01/12/18 16:03 Blood Culture - Preliminary Blood No Growth after 72 hours Assessment and Plan Assessment: Acute hypotension likely due to hypovolemic versus cardiogenic shock. Off Levophed drip Nonoliguric acute kidney injury possible ATN due to hypotension and decreased renal perfusion. Creatinine 4.62 on admission. Normalized to 0.99 Chronic CHF with systolic dysfunction Anemia of chronic disease rule out iron deficiency. Atrial fibrillation with rapid ventricular rate. Rate is controlled now. History of alcohol abuse Hypovolemic hyponatremia Hypokalemia Nonischemic cardiopathy ejection fraction 20% Severe protein calorie malnutrition Ongoing nicotine addiction DVT prophylaxis Plan: Patient was continued on Levophed. Continue with empiric antibiotics and IV hydration. Started on Midodrin. Cultures negative. Follow up renal function is improving.. Heart rate is controlled otherwise. Patient is being followed by cardiology and pulmonary and nephrology. Further recommendations based on the clinical course. Prognosis is guarded. Time with Patient: Greater than 30
[2018-01-16] MEDS: PIPERACILLIN-TAZOBACTAM 3.375 GM in DEXTROSE/WATER 1 50ML.BAG IVPB SCH ×3 (03:11→21:02)
[2018-01-16] MEDS: IPRATROPIUM-ALBUTEROL 3 ML NEB INHALATION SCH ×5 (03:43→19:10)
[2018-01-16 05:05] LABS: Anisocytosis Slight; Basophils % (A) 0 %; Eosinophils # (A) 0.1 k/uL (0-0.7); Eosinophils % (A) 1 %; HCT 25.2 % (39.0-53.0); HGB 7.6 gm/dL (13.0-17.5); Hypochromasia Marked; Lymphocytes % (A) 20 %; MCH 26.8 pg (25.0-35.0); MCHC 30.2 g/dL (31.0-37.0); MCV 88.6 fL (80.0-100.0); Mean Platelet Volume 8.3; Monocytes # (A) 0.3 k/uL (0-1.0); Monocytes % (A) 7 %; Neutrophils # (A) 3.5 k/uL (1.3-7.7); Neutrophils % (A) 71 %; RBC 2.85 m/uL (4.30-5.90); RDW 16.4 % (11.5-15.5)
[2018-01-16 05:10] LABS: Anion Gap 2 mmol/L; Blood Urea Nitrogen 8 mg/dL (9-20); Calcium 6.8 mg/dL (8.4-10.2); Carbon Dioxide 26 mmol/L (22-30); Chloride 110 mmol/L (98-107); Glucose 95 mg/dL (74-99); Magnesium 1.1 mg/dL (1.6-2.3); Phosphorus 1.4 mg/dL (2.5-4.5); Sodium 138 mmol/L (137-145)
[2018-01-16] MEDS ORDERED: Magnesium Replacement Protocol 1 EACH MISC MISCELLANE PRN (05:13)
[2018-01-16] MEDS ORDERED: Phosphorus Replacement Protoco 1 EACH MISC MISCELLANE PRN (05:14)
[2018-01-16] MEDS: MAGNESIUM SULFATE-D5W PMX 1 GM in DEXTROSE/WATER 1 100ML.BAG IVPB SCH ×3 (05:29→09:23)
[2018-01-16 05:38] LABS: Platelet Count 98 k/uL (150-450)
[2018-01-16] MEDS: SODIUM PHOSPHATE 10 MMOL in SODIUM CHLORIDE 0.9% 100 ML IVPB SCH ×3 (05:38→10:46)
[2018-01-16] MEDS: FORMOTEROL FUMARATE 20 MCG/2 ML NEBU INHALATION SCH ×2 (07:22→19:10)
[2018-01-16] MEDS: BUDESONIDE 1 MG/2 ML NEBU INHALATION SCH ×2 (07:22→19:10)
[2018-01-16] MEDS: MAGNESIUM OXIDE 400 MG TAB PO SCH ×3 (08:12→21:03)
[2018-01-16] MEDS: MIDODRINE 5 MG TAB PO SCH ×3 (08:13→19:04)
[2018-01-16] MEDS: DIPHENOX-ATROP 2.5-0.025 MG 1 EACH TAB PO SCH ×2 (08:13→21:02)
[2018-01-16] MEDS: HEPARIN SODIUM,PORCINE 5,000 UNIT/ML 1 ML VIAL SQ SCH (08:16)
[2018-01-16] MEDS: PANTOPRAZOLE 40 MG/10 ML VIAL IV SCH (08:16)
[2018-01-16] MEDS: NICOTINE 14MG/24HR PATCH TRANSDERM SCH ×2 (08:17→12:43)
[2018-01-16] MEDS: NOREPINEPHRINE 16 MG in SODIUM CHLORIDE 0.9% 250 ML IV SCH (09:24)
--- NOTE | 2018-01-16 11:03 | P.PN ---
Subjective Progress Note Date: 01/16/18 Principal diagnosis: Acute hypotension, hypovolemic and cardiogenic shock This is a 72-year-old white male with history of severe LV dysfunction, ejection fraction is supposedly 20%, COPD, chronic alcohol use, paroxysmal atrial fibrillation, patient was brought into the ER yesterday by EMS with altered mental status. 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 When EMS arrived on the scene , the patient was on the ground, unknown how long he has been on the floor. Looking back at the patient's history in the chart, patient was recently admitted to the hospital, and he was discharged home on 12/16/2015. His medical problems at that time included paroxysmal atrial fibrillation with RVR, COPD exacerbation, acute kidney injury, severe alcohol abuse, nicotine dependence, nonischemic cardiomyopathy with LV dysfunction, ejection fraction of 20%, chronic systolic congestive heart failure, hypertension, and previous history of CVA. The patient himself is a very poor historian. In the ER, the patient was noted to be hypotensive, no clear-cut evidence of sepsis, patient was given fluid boluses, did not improve much, hence a central line was placed by the ER physician, and he was placed on norepinephrine drip. Presently the patient remains on norepinephrine at 20 mcg/m. Blood pressure remains marginal, his hypotension was felt to be secondary to cardiogenic shock, possible hypovolemic shock. His creatinine on this admission was 6.99, and today it is 4.62. In the ER his systolic blood pressure was in the 50s upon arrival. Patient was also placed on antibiotics empirically although no clear-cut evidence of infection at this point. Patient was reevaluated today on 01/14/2018, remains in the intensive care unit, remains on 18 g of norepinephrine, blood pressure remains marginal. Patient received a total of 3-1/2 L of fluids, urine output has been excellent about 75 mL/h, his renal functioning has shown a significant improvement today. Creatinine is 1.89 today compared to 6.99 on admission. More fluids will be given today, we'll continue to titrate the norepinephrine down as tolerated maintaining a mean arterial pressure of 65 or higher. Seen by cardiology, and felt that the patient has severe cardiomyopathy and LV dysfunction. Chest x- ray showed right basilar atelectasis, left side is significantly improved over the last 24 hours. No more atelectasis or consolidation. All his labs were reviewed including CBC and basic metabolic profile. Potassium is a bit on the low side 3.3 being corrected as per protocol. His lactic acid was 1.7 on cultures so far are negative. Patient remains on empiric antibiotics. He will have a modified barium swallow today. Reevaluated today on 01/15/2018, patient is looking and feeling much better, he is down to 2 g of norepinephrine, hence I will give her more fluids today, and I will likely discontinue norepinephrine. His renal functioning is significantly improved. Creatinine is 0.99 today. And he will likely come off the levo fed easily. I plan to transfer the patient out of the ICU to a monitor bed on selective patient is also on midodrine and his IV fluid is maintained at 70 mL per hour. Clinically the patient feels great, he is relatively asymptomatic. No chest x-ray was done today, modified barium swallow showed one episode of transient penetration with thin liquid barium, and there was some vallecular residual. Final report from Department of speech pathology is pending. Reevaluated today on 01/16/2018, patient remains in the ICU, required to go back on norepinephrine, presently on 2 g of norepinephrine. Developed atrial fibrillation with RVR this morning, cardiology was consulted. Patient was noted to have low magnesium, being corrected. And cardiology was consulted that yet to see the patient this morning. Presently his atrial fibrillation with RVR is ranging between 90-120. And blood pressure is marginal on 2 g of norepinephrine. Patient is known to have history of severe cardiomyopathy and LV dysfunction. Hemoglobin is about the same at 7.6. Basic metabolic profile is normal renal profile is normal. Serum cortisol done yesterday was normal. Objective - Vital Signs Vital signs: Vital Signs Temp 98.2 F 01/16/18 08:00 Pulse 123 H 01/16/18 10:15 Resp 21 01/16/18 10:15 BP 83/55 01/16/18 10:15 Pulse Ox 99 01/16/18 10:15 Intake & Output 01/15/18 01/16/18 01/16/18 18:59 06:59 18:59 Intake Total 5235.229 8309.004 625 Output Total 760 570 145 Balance 1194.081 587.004 480 Weight 70.9 kg Intake: IV 525 1125 625 Magnesium Sulfate-D5w Pmx 200 200 1 gm In Dextrose/Water 1 100ml.bag @ 100 mls/hr IVPB Q1H [facility] Rx#: [id number] Sodium Chloride 0.9% 1, 525 825 225 000 ml @ 75 mls/hr IV . [id number] [facility] Rx#:[id number] Sodium Phosphate 10 mmol 100 200 In Sodium Chloride 0.9% 100 ml @ 50 mls/hr IVPB Q2H [facility] Rx#:[id number] Intake, IV Titration 1429.081 32.004 0 Amount Norepinephrine 16 mg In 54.081 32.004 0 Sodium Chloride 0.9% 250 ml @ Titrate IV .Q0M [facility] Rx#:[id number] Piperacillin-Tazobactam 3 50 .375 gm In Dextrose/Water 1 50ml.bag @ 12.5 mls/hr IVPB Q12H [facility] Rx#: [id number] Sodium Chloride 0.9% 1, 75 000 ml @ 75 mls/hr IV . [id number] [facility] Rx#:[id number] Sodium Chloride 0.9% 1, 1150 000 ml @ 999 mls/hr IV . Q1H1M [facility] Rx#:[id number] Sodium Ferric Gluconat- 100 Sucrose 125 mg In Sodium Chloride 0.9% 100 ml @ 100 mls/hr IVPB DAILY [facility] Rx#:[id number] Output: Urine 760 570 145 Other: Voiding Method Indwelling Catheter Indwelling Catheter Indwelling Catheter - Exam Physical Exam: 72-year-old white male, frail looking, in bed, complaining of feeling cold. Head: Atraumatic, normocephalic. Relatively unremarkable. Looks slightly pale. Lymphatics: No lymphadenopathy. HEENT:[Neck is supple no neck masses no thyromegaly, moist mucous membranes this morning. Chest: [Finished breath sounds at the bases no rhonchi and no wheezes. Cardiac Exam: [Irregular irregular rhythm. Normal S1 and S2, no S3 gallop, no murmur.] Abdomen: Flat abdomen soft no megaly no rebound no guarding positive bowel sounds. Extremities: Clubbing edema or cyanosis. Neurological Exam: Alert and oriented 3, no gross deficit is noted. - Labs CBC & Chem 7: 01/16/18 04:25 01/16/18 04:25 Labs: Abnormal Lab Results - Last 24 Hours (Table) 01/16/18 01/16/18 Range/Units 04:25 04:25 RBC 2.85 L (4.30-5.90) m/uL Hgb 7.6 L (13.0-17.5) gm/dL Hct 25.2 L (39.0-53.0) % MCHC 30.2 L (31.0-37.0) g/dL RDW 16.4 H (11.5-15.5) % Plt Count 98 L (150-450) k/uL Chloride 110 H (98-107) mmol/L BUN 8 L (9-20) mg/dL Calcium 6.8 L (8.4-10.2) mg/dL Phosphorus 1.4 L (2.5-4.5) mg/dL Magnesium 1.1 L (1.6-2.3) mg/dL Microbiology - Last 24 Hours (Table) 01/12/18 16:03 Blood Culture - Preliminary Blood No Growth after 72 hours Assessment and Plan Assessment: Impression: 1 acute hypovolemic and cardiogenic shock with profound hypotension on presentation. No evidence of sepsis or septic shock. 2 chronic atrial fibrillation with RVR. 3 chronic systolic heart failure with LV dysfunction. EF is 20%. 4 acute kidney injury improved significantly since admission. Creatinine today is 0.98 BUN is 8. Recommendation: Continue present supportive care measures, patient is back on norepinephrine, cardiology consultation was initiated, overall prognosis is extremely poor and guarded, strongly doubt the patient could actually be discharged home anytime soon. We'll continue to monitor, may have to discuss CODE STATUS although over again with the patient and his family. Time with Patient: Less than 30
[2018-01-16] MEDS: MULTIVITAMINS, THERA 1 EACH TAB PO SCH (11:38)
[2018-01-16] MEDS: FOLIC ACID 1 MG TAB PO SCH (11:38)
[2018-01-16] MEDS: THIAMINE 100 MG TAB PO SCH (11:38)
[2018-01-16] MEDS: AMIODARONE 200 MG TAB PO SCH ×2 (12:45→21:02)
--- NOTE | 2018-01-16 13:11 | P.PN ---
Subjective Patient is seen in follow for acute kidney injury. Renal function is improving with creatinine 0.98 today. Currently on 2 mics of Levophed. He is nonoliguric. Oral intake is fair. Denies any active chest pain or shortness of breath. Midodrine was started on January 13. Currently maintained on normal saline at 75 mL an hour. Vital signs are stable. General: The patient appeared well nourished and normally developed. HEENT: Head exam is unremarkable. Neck is without jugular venous distension. LUNGS: Lungs are clear to auscultation and percussion. Breath sounds decreased. HEART: Rate and Rhythm are regular. First and second heart sounds normal. No murmurs, rubs or gallops. ABDOMEN: Abdominal exam reveals normal bowel sounds. Non-tender and non- distended. No evidence of peritonitis. EXTREMITITES: No clubbing, cyanosis, or edema. Objective - Vital Signs Vital signs: Vital Signs Temp 98.3 F 01/16/18 12:00 Pulse 114 H 01/16/18 13:00 Resp 24 01/16/18 13:00 BP 96/61 01/16/18 13:00 Pulse Ox 100 01/16/18 13:00 Intake & Output 01/15/18 01/16/18 01/16/18 18:59 06:59 18:59 Intake Total 0951.466 3785.004 775 Output Total 760 570 245 Balance 1194.081 587.004 530 Weight 70.9 kg Intake: IV 525 1125 775 Magnesium Sulfate-D5w Pmx 200 200 1 gm In Dextrose/Water 1 100ml.bag @ 100 mls/hr IVPB Q1H [facility] Rx#: [id number] Sodium Chloride 0.9% 1, 525 825 375 000 ml @ 75 mls/hr IV . [id number] [facility] Rx#:[id number] Sodium Phosphate 10 mmol 100 200 In Sodium Chloride 0.9% 100 ml @ 50 mls/hr IVPB Q2H [facility] Rx#:[id number] Intake, IV Titration 1429.081 32.004 0 Amount Norepinephrine 16 mg In 54.081 32.004 0 Sodium Chloride 0.9% 250 ml @ Titrate IV .Q0M [facility] Rx#:[id number] Piperacillin-Tazobactam 3 50 .375 gm In Dextrose/Water 1 50ml.bag @ 12.5 mls/hr IVPB Q12H [facility] Rx#: [id number] Sodium Chloride 0.9% 1, 75 000 ml @ 75 mls/hr IV . [id number] [facility] Rx#:[id number] Sodium Chloride 0.9% 1, 1150 000 ml @ 999 mls/hr IV . Q1H1M [facility] Rx#:[id number] Sodium Ferric Gluconat- 100 Sucrose 125 mg In Sodium Chloride 0.9% 100 ml @ 100 mls/hr IVPB DAILY [facility] Rx#:[id number] Output: Urine 760 570 245 Other: Voiding Method Indwelling Catheter Indwelling Catheter Indwelling Catheter - Labs CBC & Chem 7: 01/16/18 04:25 01/16/18 04:25 Labs: Abnormal Lab Results - Last 24 Hours (Table) 01/16/18 01/16/18 Range/Units 04:25 04:25 RBC 2.85 L (4.30-5.90) m/uL Hgb 7.6 L (13.0-17.5) gm/dL Hct 25.2 L (39.0-53.0) % MCHC 30.2 L (31.0-37.0) g/dL RDW 16.4 H (11.5-15.5) % Plt Count 98 L (150-450) k/uL Chloride 110 H (98-107) mmol/L BUN 8 L (9-20) mg/dL Calcium 6.8 L (8.4-10.2) mg/dL Phosphorus 1.4 L (2.5-4.5) mg/dL Magnesium 1.1 L (1.6-2.3) mg/dL Microbiology - Last 24 Hours (Table) 01/12/18 16:03 Blood Culture - Preliminary Blood No Growth after 72 hours Assessment and Plan Plan: Assessment: 1. Nonoliguric acute kidney injury mostly prerenal improving with IV hydration. Creatinine was 6.99 on admission and is down to 0.98 today. 2. Hypotension currently on Levophed. Cortisol level normal. 3. Systolic CHF with ejection fraction of less than 20% with mild to moderate mitral and tricuspid regurgitation. Compensated. 4. Septic shock. Source likely being UTI. 5. Anemia. Iron deficiency noted. 6. Hypovolemic hyponatremia improved with IV hydration. 7. Hypokalemia status post replacement. Improved. 8. Hypomagnesemia from poor oral intake. 9. Hypophosphatemia from poor oral intake. Plan: Continue normal saline at 75 mL an hour. Follow-up cultures. Avoid nephrotoxins. Maintain midodrine. Continue to monitor renal function and urine output. Ferrlecit 125 mg IV daily for 3 days. Third dose today. Magnesium and phosphorus replaced per protocol.
--- NOTE | 2018-01-16 13:25 | PN ---
PROGRESS NOTE This patient has ischemic cardiomyopathy. Patient was admitted with severe hypotension, acute on chronic renal failure. Patient is improved with IV fluids. He is comfortable, doing better. No respiratory distress is noted. Patient is on 2 mcg of Levophed. Heart rate is ranging from 100 to 130. Blood pressure is 92/55 mmHg. First and second heart sounds are heard. Lungs are fairly clear to auscultation and percussion. Chest x-ray does not show any evidence of failure. FINAL IMPRESSION: This patient's acute hypotension and acute kidney injury is improved. At present, we will restart the patient on amiodarone 200 mg 3 times a day to control his atrial fibrillation with rapid ventricular response. Once the patient is off Levophed and remains hemodynamically stable, his cardiac medications can be slowly reinstituted. MMODL / IJN: [id number] /
[2018-01-16] MEDS: ACETAMINOPHEN TAB 500 MG TAB PO PRN (14:53)
[2018-01-16] MEDS ORDERED: IOPAMIDOL-300 CONTRAST 30 ML VIAL (ORAL USE) PO PRN (15:05)
[2018-01-16] MEDS: IOPAMIDOL-300 CONTRAST 30 ML VIAL (ORAL USE) PO PRN ×2 (15:57→17:05)
--- NOTE | 2018-01-16 18:44 | CT ---
EXAMINATION TYPE: CT abdomen pelvis w con DATE OF EXAM: 01/16/2018 COMPARISON: 01/12/2018 HISTORY: Abdominal pain and distention CT DLP: 975.2 mGycm Automated exposure control for dose reduction was used. TECHNIQUE: Helical acquisition of images was performed from the lung bases through the pelvis. CONTRAST: Performed with Oral Contrast and with IV Contrast, patient injected with 100 mL of Isovue 300. FINDINGS: There are moderate bilateral pleural effusions. There is atelectasis at the lung bases. There is smal l pericardial effusion. Heart appears enlarged. There is moderate ascites fluid in the abdomen. Liver is somewhat irregular that could relate to cirr hosis. There is no focal splenic defect. There is no sign of pancreatic mass. Bile ducts are not dila carol. There are clips from cholecystectomy. There is no adrenal mass. Kidneys show satisfactory contrast opacification. There are left renal monie ical cysts that measure up to 2 cm. There is no hydronephrosis. There is no retroperitoneal adenopath y. There is no mesenteric adenopathy. There is no sign of a bowel obstruction. There is apparent pre- existing oral contrast in the large bowel. I see no intestinal wall thickening. There is no evidence of pneumoperitoneum. There is no inguinal hernia. There is subcutaneous edema around the abdomen. The re is multilevel spondylotic change in the lumbar spine. There is 10% wedging of L1 vertebral body. T here is moderate narrowing of L4-5 disc space. There are surgical clips in the mid transverse colon. There is mild urinary bladder wall thickening. There is Price catheter. IMPRESSION: COMPARED TO RECENT EXAM OF 01/12/2018 THERE IS NEW MODERATE PLEURAL EFFUSIONS AND BASILAR PULMONARY IN FILTRATES AND ATELECTASIS. THERE IS NEW MODERATE ASCITES. There is stable mild bladder wall thickenin g that could relate to cystitis.
[2018-01-16] MEDS: TAMSULOSIN 0.4 MG CAP.ER.24H PO SCH (21:02)
[2018-01-16] MEDS: SODIUM CHLORIDE 0.9% 1,000 ML IV SCH (21:05)
[2018-01-16] MEDS: IPRATROPIUM-ALBUTEROL 3 ML NEB INHALATION PRN (22:25)
[2018-01-17] MEDS: PIPERACILLIN-TAZOBACTAM 3.375 GM in DEXTROSE/WATER 1 50ML.BAG IVPB SCH ×3 (04:17→20:33)
[2018-01-17 04:34] LABS: Anisocytosis Slight; Basophils % (A) 0 %; Eosinophils # (A) 0.1 k/uL (0-0.7); Eosinophils % (A) 1 %; HCT 24.8 % (39.0-53.0); HGB 7.6 gm/dL (13.0-17.5); Hypochromasia Marked; Lymphocytes % (A) 20 %; MCH 26.6 pg (25.0-35.0); MCHC 30.6 g/dL (31.0-37.0); MCV 86.9 fL (80.0-100.0); Mean Platelet Volume 8.3; Monocytes # (A) 0.3 k/uL (0-1.0); Monocytes % (A) 6 %; Neutrophils # (A) 3.4 k/uL (1.3-7.7); Neutrophils % (A) 70 %; RBC 2.85 m/uL (4.30-5.90); RDW 16.9 % (11.5-15.5); WBC 4.8 k/uL (3.8-10.6)
[2018-01-17] MEDS: IPRATROPIUM-ALBUTEROL 3 ML NEB INHALATION PRN (04:41)
[2018-01-17 04:46] LABS: Anion Gap 1 mmol/L; Blood Urea Nitrogen 6 mg/dL (9-20); Calcium 6.8 mg/dL (8.4-10.2); Carbon Dioxide 28 mmol/L (22-30); Chloride 109 mmol/L (98-107); Glucose 82 mg/dL (74-99); Magnesium 1.6 mg/dL (1.6-2.3); Phosphorus 1.7 mg/dL (2.5-4.5); Potassium 3.8 mmol/L (3.5-5.1); Sodium 138 mmol/L (137-145)
[2018-01-17 04:57] LABS: Platelet Count 90 k/uL (150-450)
[2018-01-17] MEDS: POTASSIUM CHLORIDE 10 MEQ in WATER FOR INJECTION 1 100ML.BAG IVPB SCH ×2 (05:45→06:58)
[2018-01-17] MEDS: MAGNESIUM SULFATE-D5W PMX 1 GM in DEXTROSE/WATER 1 100ML.BAG IVPB SCH ×2 (05:46→06:57)
[2018-01-17] MEDS: BUDESONIDE 1 MG/2 ML NEBU INHALATION SCH ×2 (07:33→19:29)
[2018-01-17] MEDS: FORMOTEROL FUMARATE 20 MCG/2 ML NEBU INHALATION SCH ×2 (07:33→19:29)
[2018-01-17] MEDS: IPRATROPIUM-ALBUTEROL 3 ML NEB INHALATION SCH ×4 (07:33→19:29)
[2018-01-17] MEDS: MAGNESIUM OXIDE 400 MG TAB PO SCH ×3 (07:52→22:15)
[2018-01-17] MEDS: PANTOPRAZOLE 40 MG/10 ML VIAL IV SCH (07:53)
[2018-01-17] MEDS: AMIODARONE 200 MG TAB PO SCH (07:53)
[2018-01-17] MEDS: MIDODRINE 5 MG TAB PO SCH ×3 (07:53→18:44)
[2018-01-17] MEDS: DIPHENOX-ATROP 2.5-0.025 MG 1 EACH TAB PO SCH ×2 (07:53→20:34)
[2018-01-17] MEDS: NICOTINE 14MG/24HR PATCH TRANSDERM SCH (07:54)
--- NOTE | 2018-01-17 08:19 | P.PN ---
Subjective Patient is seen in follow for acute kidney injury. Renal function is improving with creatinine 0.81 today. Currently off Levophed. He is nonoliguric. Oral intake is fair. Denies any active chest pain or shortness of breath. Midodrine was started on January 13. Currently maintained on normal saline at 75 mL an hour. Patient had CAT scan of the abdomen and pelvis done on January 16 which revealed pleural effusions as well as ascites. Vital signs are stable. General: The patient appeared well nourished and normally developed. HEENT: Head exam is unremarkable. Neck is without jugular venous distension. LUNGS: Br scattered rhonchi. eath sounds decreased. HEART: Rate and Rhythm are regular. First and second heart sounds normal. No murmurs, rubs or gallops. ABDOMEN: Abdominal exam reveals normal bowel sounds. Non-tender and non- distended. No evidence of peritonitis. EXTREMITITES: No clubbing, cyanosis, or edema. Objective - Vital Signs Vital signs: Vital Signs Temp 98.7 F 01/17/18 08:00 Pulse 103 H 01/17/18 08:00 Resp 20 01/17/18 08:00 BP 87/62 01/17/18 08:00 Pulse Ox 100 01/17/18 08:00 Intake & Output 01/16/18 01/17/18 01/17/18 18:59 06:59 18:59 Intake Total 9813.256 9835.5 487.5 Output Total 430 655 135 Balance 805.472 407.5 352.5 Weight 71.1 kg Intake: IV 1150 1062.5 487.5 Magnesium Sulfate-D5w Pmx 200 1 gm In Dextrose/Water 1 100ml.bag @ 100 mls/hr IVPB Q1H [facility] Rx#: [id number] Magnesium Sulfate-D5w Pmx 100 200 1 gm In Dextrose/Water 1 100ml.bag @ 100 mls/hr IVPB Q1H [facility] Rx#: [id number] Piperacillin-Tazobactam 3 37.5 12.5 .375 gm In Dextrose/Water 1 50ml.bag @ 12.5 mls/hr IVPB ONCE [facility] Rx#: [id number] Potassium Chloride 10 meq 100 200 In Water For Injection 1 100ml.bag @ 100 mls/hr IVPB Q1H [facility] Rx#: [id number] Sodium Chloride 0.9% 1, 750 825 75 000 ml @ 75 mls/hr IV . [id number] [facility] Rx#:[id number] Sodium Phosphate 10 mmol 200 In Sodium Chloride 0.9% 100 ml @ 50 mls/hr IVPB Q2H [facility] Rx#:[id number] Intake, IV Titration 85.472 Amount Norepinephrine 16 mg In 10.472 Sodium Chloride 0.9% 250 ml @ Titrate IV .Q0M [facility] Rx#:[id number] Sodium Chloride 0.9% 1, 75 000 ml @ 75 mls/hr IV . [id number] [facility] Rx#:[id number] Output: Urine 430 655 135 Other: Voiding Method Indwelling Catheter Indwelling Catheter - Labs CBC & Chem 7: 01/17/18 04:15 01/17/18 04:15 Labs: Abnormal Lab Results - Last 24 Hours (Table) 01/17/18 01/17/18 Range/Units 04:15 04:15 RBC 2.85 L (4.30-5.90) m/uL Hgb 7.6 L (13.0-17.5) gm/dL Hct 24.8 L (39.0-53.0) % MCHC 30.6 L (31.0-37.0) g/dL RDW 16.9 H (11.5-15.5) % Plt Count 90 L (150-450) k/uL Chloride 109 H (98-107) mmol/L BUN 6 L (9-20) mg/dL Calcium 6.8 L (8.4-10.2) mg/dL Phosphorus 1.7 L (2.5-4.5) mg/dL Microbiology - Last 24 Hours (Table) 01/12/18 16:03 Blood Culture - Preliminary Blood No Growth after 96 hours Assessment and Plan Plan: Assessment: 1. Nonoliguric acute kidney injury mostly prerenal improving with IV hydration. Creatinine was 6.99 on admission and is down to 0.81 today. 2. Hypotension currently off Levophed. Cortisol level normal. 3. Systolic CHF with ejection fraction of less than 20% with mild to moderate mitral and tricuspid regurgitation. 4. Septic shock. Source likely being UTI. 5. Anemia. Iron deficiency noted. Status post 3 doses of IV iron. 6. Hypovolemic hyponatremia improved with IV hydration. 7. Hypokalemia status post replacement. Improved. Status post replacement. 8. Hypomagnesemia from poor oral intake. Status post replacement. 9. Hypophosphatemia from poor oral intake. Status post replacement. 10. Fluid overload. Plan: Hep-Lock IV fluids. Start Lasix 40 mg IV twice daily. Follow-up cultures. Avoid nephrotoxins. Maintain midodrine. Continue to monitor renal function and urine output.
[2018-01-17] MEDS ORDERED: DEXTROSE 5% IN WATER 100 ML with AMIODARONE 150 MG IV ONE (08:52)
[2018-01-17] MEDS ORDERED: POTASSIUM CHLORIDE 20 MEQ in WATER FOR INJECTION 1 100ML.BAG IVPB STA (09:12)
[2018-01-17] MEDS: FUROSEMIDE 10 MG/ML 4 ML VIAL IV SCH ×2 (09:21→20:34)
[2018-01-17] MEDS: AMIODARONE 450 MG in DEXTROSE 5% IN WATER 250 ML IV SCH ×4 (09:23→15:38)
--- NOTE | 2018-01-17 10:01 | P.GSCN ---
History of Present Illness Consult date: 01/17/18 Reason for Consult: Abdominal pain History of present illness: This is a 72-year-old male who is admitted to the ICU for treatment of hypertension. Patient was being evaluated by Dr. Corado. Patient had significant abdominal pain yesterday afternoon. Patient underwent CAT scan with oral and IV contrast. Patient is no evidence of bowel obstruction or inflammatory bowel disease. He is known to have ascites. He states his pain is slightly better today. 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%, history cervical and lumbar spondylosis, carpal tunnel disease, paroxysmal atrial fibrillation, previous hospitalization for alcohol intoxication and altered mentation and previous history of fall with pulmonary contusion and traumatic right-sided fractures, history of delirium tremens, chronic atrial fibrillation, hypertension, hyperlipidemia, previous bouts of pneumonia, previous hospital physician for acute alcohol intoxication, kidney stones, cataracts, degenerative arthritis History of Any Multi-Drug Resistant Organisms: None Reported Past Surgical History: Back Surgery, Hernia Repair Additional Past Surgical History / Comment(s): right shoulder surgery, bilateral cataract surgery, umbilical hernia surgery, kidney stones removal, hammer toe surgery X3 with subsequent amputation of the second toe on right foot , pain injections through neurology, colonoscopy Past Anesthesia/Blood Transfusion Reactions: No Reported Reaction Past Psychological History: No Psychological Hx Reported Additional Psychological History / Comment(s): Lives with friend, Bekah Arriaga. she lives in the upstairs of his home. Smoking Status: Current every day smoker Past Alcohol Use History: Heavy Additional Past Alcohol Use History / Comment(s): Smokes 1 PPD, used to drink a fifth a day but recently quit. Past Drug Use History: None Reported - Past Family History Father Family Medical History: Diabetes Mellitus Mother History Unknown: Yes Additional Family Medical History / Comment(s): 2001 Medications and Allergies Home Medications Medication Instructions Recorded Confirmed Type Albuterol Sulfate [Proair Hfa] 2 puff INHALATION RT-Q6H PRN 09/14/16 01/12/18 History Rivaroxaban [Xarelto] 20 mg PO DAILY 03/28/17 01/12/18 History Ipratropium-Albuterol Nebulize 3 ml INHALATION RT-QID 10/14/17 01/12/18 History [Duoneb 0.5 mg-3 mg/3 ml Soln] Amiodarone [Cordarone] 400 mg PO DAILY #30 tab 10/21/17 01/12/18 Rx Budesonide [Pulmicort] 1 mg INHALATION RT-BID #20 nebu 10/21/17 01/12/18 Rx Formoterol Fumarate [Perforomist] 20 mcg INHALATION RT-BID #20 nebu 10/21/17 Rx Pravastatin Sodium [Pravachol] 40 mg PO HS #30 tab 10/21/17 01/12/18 Rx Magnesium Oxide [Mag-Ox] 400 mg PO TID tab 10/27/17 01/12/18 Rx Spironolactone [Aldactone] 25 mg PO DAILY tab 10/27/17 01/12/18 Rx Ipratropium [place] [Atrovent Hfa] 2 puff INHALATION RT-QID PRN 11/28/17 History Tamsulosin [Flomax] 0.4 mg PO HS 11/28/17 01/12/18 History Nadolol [Corgard] 20 mg PO BID #60 tab 12/10/17 01/12/18 Rx Furosemide [Lasix] 20 mg PO BID #60 tab 12/15/17 01/12/18 Rx Diphenox-Atrop 2.5-0.025 mg 1 tab PO BID 01/12/18 01/12/18 History [Lomotil] Lisinopril [Zestril] 2.5 mg PO DAILY 01/12/18 01/12/18 History Potassium Chloride ER [K-Dur 20] 20 meq PO DAILY 01/12/18 01/12/18 History Allergies Allergy/AdvReac Type Severity Reaction Status Date / Time cephalexin monohydrate Allergy Rash/Hives Verified 01/12/18 16:26 [From Keflex] Surgical - Exam Vital Signs Temp Resp 97 F L 18 01/12/18 15:07 01/12/18 15:07 - General well developed, no distress - Eyes PERRL - ENT normal pinna - Neck no masses - Respiratory normal expansion - Cardiovascular Rhythm: regular - Abdomen Abdomen is firm. There is some mild epigastric tenderness. There is no rebound or guarding. Results - Labs 01/17/18 04:15 01/17/18 04:15 Abnormal Lab Results - Last 24 Hours (Table) 01/17/18 01/17/18 Range/Units 04:15 04:15 RBC 2.85 L (4.30-5.90) m/uL Hgb 7.6 L (13.0-17.5) gm/dL Hct 24.8 L (39.0-53.0) % MCHC 30.6 L (31.0-37.0) g/dL RDW 16.9 H (11.5-15.5) % Plt Count 90 L (150-450) k/uL Chloride 109 H (98-107) mmol/L BUN 6 L (9-20) mg/dL Calcium 6.8 L (8.4-10.2) mg/dL Phosphorus 1.7 L (2.5-4.5) mg/dL Microbiology - Last 24 Hours (Table) 01/12/18 16:03 Blood Culture - Preliminary Blood No Growth after 96 hours Diabetes panel 01/17/18 Range/Units 04:15 Sodium 138 (137-145) mmol/L Potassium 3.8 (3.5-5.1) mmol/L Chloride 109 H (98-107) mmol/L Carbon Dioxide 28 (22-30) mmol/L BUN 6 L (9-20) mg/dL Creatinine 0.81 (0.66-1.25) mg/dL Glucose 82 (74-99) mg/dL Calcium 6.8 L (8.4-10.2) mg/dL Calcium panel 01/17/18 Range/Units 04:15 Calcium 6.8 L (8.4-10.2) mg/dL Phosphorus 1.7 L (2.5-4.5) mg/dL Pituitary panel 01/17/18 Range/Units 04:15 Sodium 138 (137-145) mmol/L Potassium 3.8 (3.5-5.1) mmol/L Chloride 109 H (98-107) mmol/L Carbon Dioxide 28 (22-30) mmol/L BUN 6 L (9-20) mg/dL Creatinine 0.81 (0.66-1.25) mg/dL Glucose 82 (74-99) mg/dL Calcium 6.8 L (8.4-10.2) mg/dL Adrenal panel 01/17/18 Range/Units 04:15 Sodium 138 (137-145) mmol/L Potassium 3.8 (3.5-5.1) mmol/L Chloride 109 H (98-107) mmol/L Carbon Dioxide 28 (22-30) mmol/L BUN 6 L (9-20) mg/dL Creatinine 0.81 (0.66-1.25) mg/dL Glucose 82 (74-99) mg/dL Calcium 6.8 L (8.4-10.2) mg/dL - Imaging CT scan - abdomen: report reviewed (Bilateral pleural effusions. There is moderate ascites. There is no evidence of bowel obstruction or perforation.) Assessment and Plan Assessment: Moderate ascites. No evidence of acute abdominal pain requiring surgical intervention. Patient will be supported conservatively.
--- NOTE | 2018-01-17 10:01 | P.PN ---
Subjective Progress Note Date: 01/17/18 Principal diagnosis: Acute hypotension, hypovolemic and cardiogenic shock This is a 72-year-old white male with history of severe LV dysfunction, ejection fraction is supposedly 20%, COPD, chronic alcohol use, paroxysmal atrial fibrillation, patient was brought into the ER yesterday by EMS with altered mental status. 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 When EMS arrived on the scene , the patient was on the ground, unknown how long he has been on the floor. Looking back at the patient's history in the chart, patient was recently admitted to the hospital, and he was discharged home on 12/16/2015. His medical problems at that time included paroxysmal atrial fibrillation with RVR, COPD exacerbation, acute kidney injury, severe alcohol abuse, nicotine dependence, nonischemic cardiomyopathy with LV dysfunction, ejection fraction of 20%, chronic systolic congestive heart failure, hypertension, and previous history of CVA. The patient himself is a very poor historian. In the ER, the patient was noted to be hypotensive, no clear-cut evidence of sepsis, patient was given fluid boluses, did not improve much, hence a central line was placed by the ER physician, and he was placed on norepinephrine drip. Presently the patient remains on norepinephrine at 20 mcg/m. Blood pressure remains marginal, his hypotension was felt to be secondary to cardiogenic shock, possible hypovolemic shock. His creatinine on this admission was 6.99, and today it is 4.62. In the ER his systolic blood pressure was in the 50s upon arrival. Patient was also placed on antibiotics empirically although no clear-cut evidence of infection at this point. Patient was reevaluated today on 01/14/2018, remains in the intensive care unit, remains on 18 g of norepinephrine, blood pressure remains marginal. Patient received a total of 3-1/2 L of fluids, urine output has been excellent about 75 mL/h, his renal functioning has shown a significant improvement today. Creatinine is 1.89 today compared to 6.99 on admission. More fluids will be given today, we'll continue to titrate the norepinephrine down as tolerated maintaining a mean arterial pressure of 65 or higher. Seen by cardiology, and felt that the patient has severe cardiomyopathy and LV dysfunction. Chest x- ray showed right basilar atelectasis, left side is significantly improved over the last 24 hours. No more atelectasis or consolidation. All his labs were reviewed including CBC and basic metabolic profile. Potassium is a bit on the low side 3.3 being corrected as per protocol. His lactic acid was 1.7 on 917 cultures so far are negative. Patient remains on empiric antibiotics. He will have a modified barium swallow today. Reevaluated today on 01/15/2018, patient is looking and feeling much better, he is down to 2 g of norepinephrine, hence I will give her more fluids today, and I will likely discontinue norepinephrine. His renal functioning is significantly improved. Creatinine is 0.99 today. And he will likely come off the levo fed easily. I plan to transfer the patient out of the ICU to a monitor bed on selective patient is also on midodrine and his IV fluid is maintained at 70 mL per hour. Clinically the patient feels great, he is relatively asymptomatic. No chest x-ray was done today, modified barium swallow showed one episode of transient penetration with thin liquid barium, and there was some vallecular residual. Final report from Department of speech pathology is pending. Reevaluated today on 01/16/2018, patient remains in the ICU, required to go back on norepinephrine, presently on 2 g of norepinephrine. Developed atrial fibrillation with RVR this morning, cardiology was consulted. Patient was noted to have low magnesium, being corrected. And cardiology was consulted that yet to see the patient this morning. Presently his atrial fibrillation with RVR is ranging between 90-120. And blood pressure is marginal on 2 g of norepinephrine. Patient is known to have history of severe cardiomyopathy and LV dysfunction. Hemoglobin is about the same at 7.6. Basic metabolic profile is normal renal profile is normal. Serum cortisol done yesterday was normal. Reevaluated today on 01/17/2018, patient is now in atrial fibrillation with RVR, requiring amiodarone bolus and drip. Developed abdominal pain yesterday, seen by surgery on consultation, and his CT of the abdomen was nondiagnostic of surgical abdomen. He is off norepinephrine today, but he is on amiodarone, blood pressure seems to be stable, his mean arterial pressure is about 66. Again he is off norepinephrine. Renal functioning remains normal today although he came in with significant acute kidney injury which has resolved. Hemoglobin is holding at 7.6. Patient is surprisingly asymptomatic. But he is requiring to stay in the ICU mostly because of his hemodynamic issues and now atrial fibrillation with RVR on amiodarone. Objective - Vital Signs Vital signs: Vital Signs Temp 98.7 F 01/17/18 08:00 Pulse 168 H 01/17/18 09:00 Resp 25 H 01/17/18 09:00 BP 88/65 01/17/18 09:00 Pulse Ox 100 01/17/18 09:00 Intake & Output 01/16/18 01/17/18 01/17/18 18:59 06:59 18:59 Intake Total 7210.401 4754.5 487.5 Output Total 430 655 200 Balance 805.472 407.5 287.5 Weight 71.1 kg Intake: IV 1150 1062.5 487.5 Magnesium Sulfate-D5w Pmx 200 1 gm In Dextrose/Water 1 100ml.bag @ 100 mls/hr IVPB Q1H [facility] Rx#: [id number] Magnesium Sulfate-D5w Pmx 100 200 1 gm In Dextrose/Water 1 100ml.bag @ 100 mls/hr IVPB Q1H [facility] Rx#: [id number] Piperacillin-Tazobactam 3 37.5 12.5 .375 gm In Dextrose/Water 1 50ml.bag @ 12.5 mls/hr IVPB ONCE [facility] Rx#: [id number] Potassium Chloride 10 meq 100 200 In Water For Injection 1 100ml.bag @ 100 mls/hr IVPB Q1H [facility] Rx#: [id number] Sodium Chloride 0.9% 1, 750 825 75 000 ml @ 75 mls/hr IV . [id number] [facility] Rx#:[id number] Sodium Phosphate 10 mmol 200 In Sodium Chloride 0.9% 100 ml @ 50 mls/hr IVPB Q2H [facility] Rx#:[id number] Intake, IV Titration 85.472 Amount Norepinephrine 16 mg In 10.472 Sodium Chloride 0.9% 250 ml @ Titrate IV .Q0M [facility] Rx#:[id number] Sodium Chloride 0.9% 1, 75 000 ml @ 75 mls/hr IV . [id number] [facility] Rx#:[id number] Output: Urine 430 655 200 Other: Voiding Method Indwelling Catheter Indwelling Catheter Indwelling Catheter - Exam Physical Exam: 72-year-old white male, in no distress Head: Atraumatic, normocephalic.. HEENT:[Neck is supple no neck masses no thyromegaly, moist mucous membranes this morning. Chest: [Finished breath sounds at the bases no rhonchi and no wheezes. Cardiac Exam: [Irregular irregular rhythm. Normal S1 and S2, no S3 gallop, no murmur.] Abdomen: Flat abdomen soft no megaly no rebound no guarding positive bowel sounds. Extremities: Clubbing edema or cyanosis. Neurological Exam: Alert and oriented 3, no gross deficit is noted. Psychiatric: Normal mood affect and mental status examination. Lymphatics: No lymphadenopathy. - Labs CBC & Chem 7: 01/17/18 04:15 01/17/18 04:15 Labs: Abnormal Lab Results - Last 24 Hours (Table) 01/17/18 01/17/18 Range/Units 04:15 04:15 RBC 2.85 L (4.30-5.90) m/uL Hgb 7.6 L (13.0-17.5) gm/dL Hct 24.8 L (39.0-53.0) % MCHC 30.6 L (31.0-37.0) g/dL RDW 16.9 H (11.5-15.5) % Plt Count 90 L (150-450) k/uL Chloride 109 H (98-107) mmol/L BUN 6 L (9-20) mg/dL Calcium 6.8 L (8.4-10.2) mg/dL Phosphorus 1.7 L (2.5-4.5) mg/dL Microbiology - Last 24 Hours (Table) 01/12/18 16:03 Blood Culture - Preliminary Blood No Growth after 96 hours Assessment and Plan Assessment: Impression: 1 acute hypovolemic and cardiogenic shock with profound hypotension on presentation. Presently off norepinephrine, however he is on amiodarone for atrial fibrillation and RVR. 2 chronic atrial fibrillation with RVR. Presently on amiodarone drip. 3 chronic systolic heart failure with LV dysfunction. EF is 20%. 4 acute kidney injury, resolved Recommendation: Continue amiodarone drip, will remain off norepinephrine for now , continue diuretics, continue to monitor in the ICU, patient remains relatively critically ill, no plans to transfer out of the ICU today, overall long-term prognosis is definitely poor. Time with Patient: Less than 30
--- NOTE | 2018-01-17 11:53 | P.PN ---
Subjective Progress Note Date: 01/17/18 This is a 72-year-old gentleman was admitted to the hospital with hypotension and tachycardia. Patient also had acute renal injury. Patient improved with IV fluids. His blood pressure running in the 90s. His heart rate is in the 140s. I'm going to start him on IV amiodarone along with drip. Rest of the medication be continued. Prognosis is guarded Objective - Vital Signs Vital signs: Vital Signs Temp 98.7 F 01/17/18 08:00 Pulse 118 H 01/17/18 11:48 Resp 26 H 01/17/18 11:00 BP 97/66 01/17/18 11:00 Pulse Ox 100 01/17/18 11:00 Intake & Output 01/16/18 01/17/18 01/17/18 18:59 06:59 18:59 Intake Total 0832.309 2016.5 707.5 Output Total 430 655 875 Balance 805.472 407.5 -167.5 Weight 71.1 kg Intake: IV 1150 1062.5 707.5 Dextrose 5% in Water 100 100 ml @ 618 mls/hr IV .Q10M [facility] with Amiodarone 150 mg Rx#:[id number] Magnesium Sulfate-D5w Pmx 200 1 gm In Dextrose/Water 1 100ml.bag @ 100 mls/hr IVPB Q1H [facility] Rx#: [id number] Magnesium Sulfate-D5w Pmx 100 200 1 gm In Dextrose/Water 1 100ml.bag @ 100 mls/hr IVPB Q1H [facility] Rx#: [id number] Piperacillin-Tazobactam 3 37.5 12.5 .375 gm In Dextrose/Water 1 50ml.bag @ 12.5 mls/hr IVPB ONCE [facility] Rx#: [id number] Potassium Chloride 10 meq 100 200 In Water For Injection 1 100ml.bag @ 100 mls/hr IVPB Q1H [facility] Rx#: [id number] Potassium Chloride 20 meq 100 In Water For Injection 1 100ml.bag @ 50 mls/hr IVPB ONCE [facility] Rx#: [id number] Sodium Chloride 0.9% 1, 750 825 95 000 ml @ 10 mls/hr IV . Q24H [facility] Rx#:[id number] Sodium Phosphate 10 mmol 200 In Sodium Chloride 0.9% 100 ml @ 50 mls/hr IVPB Q2H [facility] Rx#:[id number] Intake, IV Titration 85.472 Amount Norepinephrine 16 mg In 10.472 Sodium Chloride 0.9% 250 ml @ Titrate IV .Q0M [facility] Rx#:[id number] Sodium Chloride 0.9% 1, 75 000 ml @ 10 mls/hr IV . Q24H [facility] Rx#:[id number] Output: Urine 430 655 875 Other: Voiding Method Indwelling Catheter Indwelling Catheter Indwelling Catheter - Exam GENERAL EXAM: Patient is alert and oriented and doesn't appear to be in any acute distress HEENT: Normocephalic. Normal reaction of pupils, equal size, normal range of extraocular motion. No erythema or exudates in the throat. NECK: No masses, no nuchal rigidity. CHEST: No chest wall deformity. LUNGS: Equal air entry with no crackles or wheeze. HEART: S1 and S2 normal with no audible mumurs or gallops. Regular rhythm, femorals equal on both sides.. ABDOMEN: No hepatosplenomegaly, normal bowel sounds, no guarding or rigidity. SKIN: No rashes CENTRAL NERVOUS SYSTEM: No focal deficits. EXTREMITIES: No cyanosis, clubbing or edema. - Labs CBC & Chem 7: 01/17/18 04:15 01/17/18 04:15 Labs: Abnormal Lab Results - Last 24 Hours (Table) 01/17/18 01/17/18 Range/Units 04:15 04:15 RBC 2.85 L (4.30-5.90) m/uL Hgb 7.6 L (13.0-17.5) gm/dL Hct 24.8 L (39.0-53.0) % MCHC 30.6 L (31.0-37.0) g/dL RDW 16.9 H (11.5-15.5) % Plt Count 90 L (150-450) k/uL Chloride 109 H (98-107) mmol/L BUN 6 L (9-20) mg/dL Calcium 6.8 L (8.4-10.2) mg/dL Phosphorus 1.7 L (2.5-4.5) mg/dL Microbiology - Last 24 Hours (Table) 01/12/18 16:03 Blood Culture - Preliminary Blood No Growth after 96 hours Assessment and Plan Plan: We will start him on IV amiodarone. Continue with supportive care. Progress is guarded
[2018-01-17] MEDS: THIAMINE 100 MG TAB PO SCH (12:07)
[2018-01-17] MEDS: FOLIC ACID 1 MG TAB PO SCH (12:07)
[2018-01-17] MEDS: MULTIVITAMINS, THERA 1 EACH TAB PO SCH (12:07)
[2018-01-17] MEDS: SODIUM CHLORIDE 0.9% 1,000 ML IV SCH ×2 (12:08→20:34)
[2018-01-17] MEDS ORDERED: Phosphorus Replacement Protoco 1 EACH MISC MISCELLANE PRN (14:54)
[2018-01-17] MEDS: POTASSIUM PHOSPHATE 10 MMOL in SODIUM CHLORIDE 0.9% 100 ML IV SCH ×3 (15:39→20:33)
[2018-01-17] MEDS: RIVAROXABAN 20 MG TAB PO SCH (17:20)
[2018-01-17] MEDS: TAMSULOSIN 0.4 MG CAP.ER.24H PO SCH (20:34)
[2018-01-18] MEDS: PIPERACILLIN-TAZOBACTAM 3.375 GM in DEXTROSE/WATER 1 50ML.BAG IVPB SCH ×3 (03:16→21:08)
[2018-01-18 04:45] LABS: Anisocytosis Slight; Basophils % (A) 0 %; Eosinophils # (A) 0.1 k/uL (0-0.7); Eosinophils % (A) 1 %; HCT 24.2 % (39.0-53.0); HGB 7.2 gm/dL (13.0-17.5); Hypochromasia Moderate; Lymphocytes # (A) 1.1 k/uL (1.0-4.8); Lymphocytes % (A) 17 %; MCH 25.5 pg (25.0-35.0); MCHC 29.8 g/dL (31.0-37.0); MCV 85.5 fL (80.0-100.0); Monocytes # (A) 0.4 k/uL (0-1.0); Monocytes % (A) 6 %; Neutrophils # (A) 4.6 k/uL (1.3-7.7); Neutrophils % (A) 73 %; Platelet Count 106 k/uL (150-450); RBC 2.82 m/uL (4.30-5.90); RDW 16.7 % (11.5-15.5); WBC 6.2 k/uL (3.8-10.6)
[2018-01-18 05:15] LABS: Anion Gap 4 mmol/L; Blood Urea Nitrogen 6 mg/dL (9-20); Calcium 6.6 mg/dL (8.4-10.2); Carbon Dioxide 31 mmol/L (22-30); Chloride 99 mmol/L (98-107); Glucose 87 mg/dL (74-99); Magnesium 1.3 mg/dL (1.6-2.3); Phosphorus 2.4 mg/dL (2.5-4.5); Potassium 3.5 mmol/L (3.5-5.1); Sodium 134 mmol/L (137-145)
[2018-01-18] MEDS ORDERED: POTASSIUM PHOSPHATE 10 MMOL in SODIUM CHLORIDE 0.9% 100 ML IV ONE (05:40)
[2018-01-18] MEDS: IPRATROPIUM-ALBUTEROL 3 ML NEB INHALATION PRN (05:51)
[2018-01-18] MEDS: AMIODARONE 450 MG in DEXTROSE 5% IN WATER 250 ML IV SCH ×4 (05:57→06:30)
[2018-01-18] MEDS: MAGNESIUM SULFATE-D5W PMX 1 GM in DEXTROSE/WATER 1 100ML.BAG IVPB SCH ×3 (06:21→09:47)
[2018-01-18] MEDS: POTASSIUM CHLORIDE 20 MEQ in WATER FOR INJECTION 1 100ML.BAG IVPB SCH ×2 (06:22→09:48)
[2018-01-18] MEDS: PANTOPRAZOLE 40 MG/10 ML VIAL IV SCH (08:06)
[2018-01-18] MEDS: FUROSEMIDE 10 MG/ML 4 ML VIAL IV SCH (08:06)
[2018-01-18] MEDS: MAGNESIUM OXIDE 400 MG TAB PO SCH ×3 (08:06→21:10)
[2018-01-18] MEDS: DIPHENOX-ATROP 2.5-0.025 MG 1 EACH TAB PO SCH ×2 (08:06→21:10)
[2018-01-18] MEDS: RIVAROXABAN 20 MG TAB PO SCH (08:07)
[2018-01-18] MEDS: MIDODRINE 5 MG TAB PO SCH ×3 (08:12→17:01)
--- NOTE | 2018-01-18 08:30 | XR ---
EXAMINATION TYPE: XR chest 1V portable DATE OF EXAM: 01/18/2018 HISTORY: chf. REFERENCE: Previous study dated 01/14/2018. FINDINGS: There is a right shoulder arthroplasty in place. The heart is enlarged. There is a worsening right and left basilar infiltrate. I suspect small effusi ons. IMPRESSION: 1. CARDIOMEGALY. 2. WORSENING BIBASILAR ATELECTASIS. 3. SMALL, BILATERAL EFFUSIONS.
[2018-01-18] MEDS: ACETAMINOPHEN TAB 500 MG TAB PO PRN ×2 (08:35→14:41)
[2018-01-18] MEDS: NICOTINE 14MG/24HR PATCH TRANSDERM SCH (08:36)
[2018-01-18] MEDS: BUDESONIDE 1 MG/2 ML NEBU INHALATION SCH ×2 (09:14→19:22)
[2018-01-18] MEDS: FORMOTEROL FUMARATE 20 MCG/2 ML NEBU INHALATION SCH ×2 (09:14→19:22)
[2018-01-18] MEDS: IPRATROPIUM-ALBUTEROL 3 ML NEB INHALATION SCH ×4 (09:14→19:22)
--- NOTE | 2018-01-18 10:10 | P.PN ---
Subjective Patient is seen in follow for acute kidney injury, which has resolved. Currently off Levophed. He is nonoliguric. Oral intake is fair. Denies any active chest pain or shortness of breath. Midodrine was started on January 13. Patient had CAT scan of the abdomen and pelvis done on January 16 which revealed pleural effusions as well as ascites. Remains in atrial fibrillation on IV amiodarone. Vital signs are stable. General: The patient appeared well nourished and normally developed. HEENT: Head exam is unremarkable. Neck is without jugular venous distension. LUNGS: Scattered rhonchi. Breath sounds decreased. HEART: Rate and Rhythm are regular. First and second heart sounds normal. No murmurs, rubs or gallops. ABDOMEN: Abdominal exam reveals normal bowel sounds. Non-tender and non- distended. No evidence of peritonitis. EXTREMITITES: No clubbing, cyanosis, or edema. Objective - Vital Signs Vital signs: Vital Signs Temp 98.8 F 01/18/18 00:00 Pulse 128 H 01/18/18 09:36 Resp 24 01/18/18 07:00 BP 85/53 01/18/18 07:00 Pulse Ox 99 01/18/18 07:00 Intake & Output 01/17/18 01/18/18 01/18/18 18:59 06:59 18:59 Intake Total 1235.813 637.679 50 Output Total 2565 1390 65 Balance -1329.187 -752.321 -15 Weight 69 kg Intake: IV 1027.5 390.0 50 Dextrose 5% in Water 100 100 ml @ 618 mls/hr IV .Q10M ONE with Amiodarone 150 mg Rx#:[id number] Magnesium Sulfate-D5w Pmx 200 100 1 gm In Dextrose/Water 1 100ml.bag @ 100 mls/hr IVPB Q1H [facility] Rx#: [id number] Piperacillin-Tazobactam 3 12.5 .375 gm In Dextrose/Water 1 50ml.bag @ 12.5 mls/hr IVPB ONCE [facility] Rx#: [id number] Piperacillin-Tazobactam 3 50 100.0 .375 gm In Dextrose/Water 1 50ml.bag @ 12.5 mls/hr IVPB Q8H [facility] Rx#: [id number] Potassium Chloride 10 meq 200 In Water For Injection 1 100ml.bag @ 100 mls/hr IVPB Q1H [facility] Rx#: [id number] Potassium Chloride 20 meq 100 In Water For Injection 1 100ml.bag @ 50 mls/hr IVPB ONCE [facility] Rx#: [id number] Potassium Chloride 20 meq 50 50 In Water For Injection 1 100ml.bag @ 50 mls/hr IVPB Q2H [facility] Rx#: [id number] Potassium Phosphate 10 200 100 mmol In Sodium Chloride 0 .9% 100 ml @ 50 mls/hr IV Q2H [facility] Rx#:[id number] Sodium Chloride 0.9% 1, 165 40 000 ml @ 10 mls/hr IV . Q24H [facility] Rx#:[id number] Intake, IV Titration 208.313 247.679 Amount Amiodarone 450 mg In 208.313 247.679 Dextrose 5% in Water 250 ml @ 1 MG/MIN 33.33 mls/ hr IV .Q7H31M [facility] Rx#: [id number] Output: Urine 2565 1390 65 Other: Voiding Method Indwelling Catheter Indwelling Catheter - Labs CBC & Chem 7: 01/18/18 04:30 01/18/18 04:30 Labs: Abnormal Lab Results - Last 24 Hours (Table) 01/17/18 01/18/18 01/18/18 Range/Units 11:50 04:30 04:30 RBC 2.82 L (4.30-5.90) m/uL Hgb 7.2 L (13.0-17.5) gm/dL Hct 24.2 L (39.0-53.0) % MCHC 29.8 L (31.0-37.0) g/dL RDW 16.7 H (11.5-15.5) % Plt Count 106 L (150-450) k/uL Sodium 134 L (137-145) mmol/L Carbon Dioxide 31 H (22-30) mmol/L BUN 6 L (9-20) mg/dL Calcium 6.6 L (8.4-10.2) mg/dL Phosphorus 1.4 L 2.4 L (2.5-4.5) mg/dL Magnesium 1.3 L (1.6-2.3) mg/dL Microbiology - Last 24 Hours (Table) 01/12/18 16:03 Blood Culture - Preliminary Blood No Growth after 120 hours Assessment and Plan Plan: Assessment: 1. Nonoliguric acute kidney injury mostly prerenal improving with IV hydration. Creatinine was 6.99 on admission. Now near 1. 2. Hypotension currently off Levophed. Cortisol level normal. 3. Systolic CHF with ejection fraction of less than 20% with mild to moderate mitral and tricuspid regurgitation. 4. Septic shock. Source likely being UTI. 5. Anemia. Iron deficiency noted. Status post 3 doses of IV iron. 6. Hypovolemic hyponatremia improved with IV hydration. 7. Hypokalemia secondary to diuresis. 8. Hypomagnesemia from poor oral intake and diuresis. 9. Hypophosphatemia from poor oral intake. . 10. Fluid overload. 11. Atrial fibrillation with RVR maintained on IV amiodarone. Plan: Maintain Lasix 40 mg IV twice daily for now. Avoid nephrotoxins. Maintain midodrine. Continue to monitor renal function and urine output. Potassium, magnesium, and phosphorus being replaced. Encourage oral intake.
[2018-01-18] MEDS ORDERED: DIGOXIN 250 MCG/ML 2 ML AMP IVP ONE ×2 (10:31→17:00)
--- NOTE | 2018-01-18 11:09 | P.PN ---
Subjective Progress Note Date: 01/18/18 This is a 72-year-old gentleman was admitted to the hospital with hypotension and tachycardia. Patient also had acute renal injury. Patient improved with IV fluids. His blood pressure running in the 90s. His heart rate is in the 140s. I'm going to start him on IV amiodarone along with drip. Rest of the medication be continued. Prognosis is guarded. 01/18/2018: This patient seemed to be improving. He remains in atrial fibrillation with moderately rapid ventricular response. He is on IV amiodarone. I'm going to add IV Lasix. We'll switch to by mouth amiodarone. The rest of the medication to be continued. His atenolol function remains stable Objective - Vital Signs Vital signs: Vital Signs Temp 98.8 F 01/18/18 00:00 Pulse 128 H 01/18/18 09:36 Resp 20 01/18/18 08:00 BP 85/53 01/18/18 07:00 Pulse Ox 99 01/18/18 07:00 Intake & Output 01/17/18 01/18/18 01/18/18 18:59 06:59 18:59 Intake Total 1235.813 637.679 700 Output Total 2565 1390 565 Balance -1329.187 -752.321 135 Weight 69 kg Intake: IV 1027.5 390.0 580 Dextrose 5% in Water 100 100 ml @ 618 mls/hr IV .Q10M [facility] with Amiodarone 150 mg Rx#:[id number] Magnesium Sulfate-D5w Pmx 200 100 1 gm In Dextrose/Water 1 100ml.bag @ 100 mls/hr IVPB Q1H [facility] Rx#: [id number] Magnesium Sulfate-D5w Pmx 300 1 gm In Dextrose/Water 1 100ml.bag @ 100 mls/hr IVPB Q1H [facility] Rx#: [id number] Piperacillin-Tazobactam 3 12.5 .375 gm In Dextrose/Water 1 50ml.bag @ 12.5 mls/hr IVPB [facility]CE [facility] Rx#: [id number] Piperacillin-Tazobactam 3 50 100.0 .375 gm In Dextrose/Water 1 50ml.bag @ 12.5 mls/hr IVPB Q8H [facility] Rx#: [id number] Potassium Chloride 10 meq 200 In Water For Injection 1 100ml.bag @ 100 mls/hr IVPB Q1H [facility] Rx#: [id number] Potassium Chloride 20 meq 100 In Water For Injection 1 100ml.bag @ 50 mls/hr IVPB [facility]CE [facility] Rx#: [id number] Potassium Chloride 20 meq 50 150 In Water For Injection 1 100ml.bag @ 50 mls/hr IVPB Q2H [facility] Rx#: [id number] Potassium Phosphate 10 200 100 100 mmol In Sodium Chloride 0 .9% 100 ml @ 50 mls/hr IV Q2H [facility] Rx#:[id number] Sodium Chloride 0.9% 1, 165 40 30 000 ml @ 10 mls/hr IV . Q24H [facility] Rx#:[id number] Intake, IV Titration 208.313 247.679 Amount Amiodarone 450 mg In 208.313 247.679 Dextrose 5% in Water 250 ml @ 1 MG/MIN 33.33 mls/ hr IV .Q7H31M [facility] Rx#: [id number] Oral 120 Output: Urine 2565 1390 565 Other: Voiding Method Indwelling Catheter Indwelling Catheter Indwelling Catheter - Exam GENERAL EXAM: Patient is alert and oriented and doesn't appear to be in any acute distress HEENT: Normocephalic. Normal reaction of pupils, equal size, normal range of extraocular motion. No erythema or exudates in the throat. NECK: No masses, no nuchal rigidity. CHEST: No chest wall deformity. LUNGS: Equal air entry with no crackles or wheeze. HEART: S1 and S2 normal with no audible mumurs or gallops. Regular rhythm, femorals equal on both sides.. ABDOMEN: No hepatosplenomegaly, normal bowel sounds, no guarding or rigidity. SKIN: No rashes CENTRAL NERVOUS SYSTEM: No focal deficits. EXTREMITIES: No cyanosis, clubbing or edema. - Labs CBC & Chem 7: 01/18/18 04:30 01/18/18 04:30 Labs: Abnormal Lab Results - Last 24 Hours (Table) 01/17/18 01/18/18 01/18/18 Range/Units 11:50 04:30 04:30 RBC 2.82 L (4.30-5.90) m/uL Hgb 7.2 L (13.0-17.5) gm/dL Hct 24.2 L (39.0-53.0) % MCHC 29.8 L (31.0-37.0) g/dL RDW 16.7 H (11.5-15.5) % Plt Count 106 L (150-450) k/uL Sodium 134 L (137-145) mmol/L Carbon Dioxide 31 H (22-30) mmol/L BUN 6 L (9-20) mg/dL Calcium 6.6 L (8.4-10.2) mg/dL Phosphorus 1.4 L 2.4 L (2.5-4.5) mg/dL Magnesium 1.3 L (1.6-2.3) mg/dL Microbiology - Last 24 Hours (Table) 01/12/18 16:03 Blood Culture - Preliminary Blood No Growth after 120 hours Assessment and Plan Plan: We will start him on IV amiodarone. Continue with supportive care. Progress is guarded. 01/18/2018: This patient is clinically stable, getting better. His heart rate is still high. I'm going to add Lanoxin. Switch to by mouth amiodarone. Rest of the medication to be continued.
--- NOTE | 2018-01-18 12:18 | P.PN ---
Subjective Progress Note Date: 01/18/18 Principal diagnosis: Acute hypotension, hypovolemic and cardiogenic shock This is a 72-year-old white male with history of severe LV dysfunction, ejection fraction is supposedly 20%, COPD, chronic alcohol use, paroxysmal atrial fibrillation, patient was brought into the ER yesterday by EMS with altered mental status. Supposedly the patient has a pot runner, and it was his neighbor who actually called EMS for left assist. When EMS arrived on the scene , the patient was on the ground, unknown how long he has been on the floor. Looking back at the patient's history in the chart, patient was recently admitted to the hospital, and he was discharged home on 12/16/2015. His medical problems at that time included paroxysmal atrial fibrillation with RVR, COPD exacerbation, acute kidney injury, severe alcohol abuse, nicotine dependence, nonischemic cardiomyopathy with LV dysfunction, ejection fraction of 20%, chronic systolic congestive heart failure, hypertension, and previous history of CVA. The patient himself is a very poor historian. In the ER, the patient was noted to be hypotensive, no clear-cut evidence of sepsis, patient was given fluid boluses, did not improve much, hence a central line was placed by the ER physician, and he was placed on norepinephrine drip. Presently the patient remains on norepinephrine at 20 mcg/m. Blood pressure remains marginal, his hypotension was felt to be secondary to cardiogenic shock, possible hypovolemic shock. His creatinine on this admission was 6.99, and today it is 4.62. In the ER his systolic blood pressure was in the 50s upon arrival. Patient was also placed on antibiotics empirically although no clear-cut evidence of infection at this point. Patient was reevaluated today on 01/14/2018, remains in the intensive care unit, remains on 18 g of norepinephrine, blood pressure remains marginal. Patient received a total of 3-1/2 L of fluids, urine output has been excellent about 75 mL/h, his renal functioning has shown a significant improvement today. Creatinine is 1.89 today compared to 6.99 on admission. More fluids will be given today, we'll continue to titrate the norepinephrine down as tolerated maintaining a mean arterial pressure of 65 or higher. Seen by cardiology, and felt that the patient has severe cardiomyopathy and LV dysfunction. Chest x- ray showed right basilar atelectasis, left side is significantly improved over the last 24 hours. No more atelectasis or consolidation. All his labs were reviewed including CBC and basic metabolic profile. Potassium is a bit on the low side 3.3 being corrected as per protocol. His lactic acid was 1.7 on 917 cultures so far are negative. Patient remains on empiric antibiotics. He will have a modified barium swallow today. Reevaluated today on 01/15/2018, patient is looking and feeling much better, he is down to 2 g of norepinephrine, hence I will give her more fluids today, and I will likely discontinue norepinephrine. His renal functioning is significantly improved. Creatinine is 0.99 today. And he will likely come off the levo fed easily. I plan to transfer the patient out of the ICU to a monitor bed on selective patient is also on midodrine and his IV fluid is maintained at 70 mL per hour. Clinically the patient feels great, he is relatively asymptomatic. No chest x-ray was done today, modified barium swallow showed one episode of transient penetration with thin liquid barium, and there was some vallecular residual. Final report from Department of speech pathology is pending. Reevaluated today on 01/16/2018, patient remains in the ICU, required to go back on norepinephrine, presently on 2 g of norepinephrine. Developed atrial fibrillation with RVR this morning, cardiology was consulted. Patient was noted to have low magnesium, being corrected. And cardiology was consulted that yet to see the patient this morning. Presently his atrial fibrillation with RVR is ranging between 90-120. And blood pressure is marginal on 2 g of norepinephrine. Patient is known to have history of severe cardiomyopathy and LV dysfunction. Hemoglobin is about the same at 7.6. Basic metabolic profile is normal renal profile is normal. Serum cortisol done yesterday was normal. Reevaluated today on 01/17/2018, patient is now in atrial fibrillation with RVR, requiring amiodarone bolus and drip. Developed abdominal pain yesterday, seen by surgery on consultation, and his CT of the abdomen was nondiagnostic of surgical abdomen. He is off norepinephrine today, but he is on amiodarone, blood pressure seems to be stable, his mean arterial pressure is about 66. Again he is off norepinephrine. Renal functioning remains normal today although he came in with significant acute kidney injury which has resolved. Hemoglobin is holding at 7.6. Patient is surprisingly asymptomatic. But he is requiring to stay in the ICU mostly because of his hemodynamic issues and now atrial fibrillation with RVR on amiodarone. Reevaluated today on 01/18/2018, patient remains in the ICU, remains on amiodarone drip for atrial fibrillation with RVR, denies any shortness of breath , denies any abdominal pain, no nausea, no vomiting. Cardiology is still addressing his atrial fibrillation with RVR, seems to be poorly controlled at this point, rate is in the 140 range.he is presently off norepinephrine, chest x -ray is showing mostly atelectasis, and small bilateral tiny pleural effusions not large enough to consider thoracentesis.all labs were also reviewed, WBC count is 6.2 hemoglobin is 7.2 and his basic metabolic profile is noted to be relatively unremarkable except for low potassium of 3.5 be corrected his magnesium is being corrected and his phosphate is being corrected. BUN is 6 creatinine 0.87. Objective - Vital Signs Vital signs: Vital Signs Temp 98.7 F 01/18/18 08:00 Pulse 124 H 01/18/18 11:00 Resp 23 01/18/18 11:00 BP 102/67 01/18/18 11:00 Pulse Ox 100 01/18/18 11:00 Intake & Output 01/17/18 01/18/18 01/18/18 18:59 06:59 18:59 Intake Total 1235.813 637.679 700 Output Total 2565 1390 565 Balance -1329.187 -752.321 135 Weight 69 kg Intake: IV 1027.5 390.0 580 Dextrose 5% in Water 100 100 ml @ 618 mls/hr IV .Q10M ONE with Amiodarone 150 mg Rx#:[id number] Magnesium Sulfate-D5w Pmx 200 100 1 gm In Dextrose/Water 1 100ml.bag @ 100 mls/hr IVPB Q1H [facility] Rx#: [id number] Magnesium Sulfate-D5w Pmx 300 1 gm In Dextrose/Water 1 100ml.bag @ 100 mls/hr IVPB Q1H [facility] Rx#: [id number] Piperacillin-Tazobactam 3 12.5 .375 gm In Dextrose/Water 1 50ml.bag @ 12.5 mls/hr IVPB ONCE [facility] Rx#: [id number] Piperacillin-Tazobactam 3 50 100.0 .375 gm In Dextrose/Water 1 50ml.bag @ 12.5 mls/hr IVPB Q8H [facility] Rx#: [id number] Potassium Chloride 10 meq 200 In Water For Injection 1 100ml.bag @ 100 mls/hr IVPB Q1H [facility] Rx#: [id number] Potassium Chloride 20 meq 100 In Water For Injection 1 100ml.bag @ 50 mls/hr IVPB ONCE [facility] Rx#: [id number] Potassium Chloride 20 meq 50 150 In Water For Injection 1 100ml.bag @ 50 mls/hr IVPB Q2H [facility] Rx#: [id number] Potassium Phosphate 10 200 100 100 mmol In Sodium Chloride 0 .9% 100 ml @ 50 mls/hr IV Q2H [facility] Rx#:[id number] Sodium Chloride 0.9% 1, 165 40 30 000 ml @ 10 mls/hr IV . Q24H [facility] Rx#:[id number] Intake, IV Titration 208.313 247.679 Amount Amiodarone 450 mg In 208.313 247.679 Dextrose 5% in Water 250 ml @ 1 MG/MIN 33.33 mls/ hr IV .Q7H31M [facility] Rx#: [id number] Oral 120 Output: Urine 2565 1390 565 Other: Voiding Method Indwelling Catheter Indwelling Catheter Indwelling Catheter - Exam Physical Exam: 72-year-old white male, laying in bed, comfortable, asymptomatic , and in no form of respiratory distress. Head: relatively unremarkable, looks slightly pale however. HEENT:[Neck is supple no neck masses no thyromegaly, moist mucous membranes this morning.no icterus was appreciated. Chest: rhonchi and wheezes noted bilaterally more so on forced expiratory maneuver. Cardiac Exam: [Irregular irregular rhythm. Normal S1 and S2, no S3 gallop, no murmur.] Abdomen: soft nontender, no rebound no guarding positive bowel sounds. Extremities: no cyanosis or clubbing or edema. Neurological Exam: Alert and oriented 3, no gross deficit is noted. Psychiatric: Normal mood affect and mental status examination. Lymphatics: (palpable lymph nodes. - Labs CBC & Chem 7: 01/18/18 04:30 01/18/18 04:30 Labs: Abnormal Lab Results - Last 24 Hours (Table) 01/17/18 01/18/18 01/18/18 Range/Units 11:50 04:30 04:30 RBC 2.82 L (4.30-5.90) m/uL Hgb 7.2 L (13.0-17.5) gm/dL Hct 24.2 L (39.0-53.0) % MCHC 29.8 L (31.0-37.0) g/dL RDW 16.7 H (11.5-15.5) % Plt Count 106 L (150-450) k/uL Sodium 134 L (137-145) mmol/L Carbon Dioxide 31 H (22-30) mmol/L BUN 6 L (9-20) mg/dL Calcium 6.6 L (8.4-10.2) mg/dL Phosphorus 1.4 L 2.4 L (2.5-4.5) mg/dL Magnesium 1.3 L (1.6-2.3) mg/dL Microbiology - Last 24 Hours (Table) 01/12/18 16:03 Blood Culture - Preliminary Blood No Growth after 120 hours Assessment and Plan Assessment: Impression: 1 acute hypovolemic and cardiogenic shock with profound hypotension on presentation. required norepinephrine for a while, presently he is off norepinephrine, blood pressure is stable however his atrial fibrillation is poorly controlled presently in A. fib with RVR in spite of amiodarone drip. 2 chronic atrial fibrillation with RVR. Being addressed by cardiology on the case. 3 chronic systolic heart failure with LV dysfunction. EF is 20%. 4 abdominal pain, workup was nondiagnostic, and clearly his abdominal pain was not surgical 5 acute kidney injury on presentation,mostly secondary to hypotension and dehydration resolved with hydration.. Recommendation: Continue amiodarone drip, patient is relatively for any discharge planning, he will remain in the ICU, overall long-term prognosis is poor. We'll continue to follow Time with Patient: Less than 30
[2018-01-18] MEDS: FOLIC ACID 1 MG TAB PO SCH (12:40)
[2018-01-18] MEDS: THIAMINE 100 MG TAB PO SCH (12:41)
[2018-01-18] MEDS: MULTIVITAMINS, THERA 1 EACH TAB PO SCH (12:41)
--- NOTE | 2018-01-18 15:30 | P.PN ---
Subjective Progress Note Date: 01/16/18 Principal diagnosis: Hypotensive shock A. fib with RVR Acute kidney injury This is a 72-year-old white male with history of severe LV dysfunction, ejection fraction is supposedly 20%, COPD, chronic alcohol use, paroxysmal atrial fibrillation, patient was brought into the ER by EMS with altered mental status. Patient does have a history of paroxysmal atrial fibrillation with RVR, COPD exacerbation, acute kidney injury, severe alcohol abuse, nicotine dependence, nonischemic cardiomyopathy with LV dysfunction, ejection fraction of 20%, chronic systolic congestive heart failure, hypertension, and previous history of CVA. he was discharged home on 12/16/2015. The patient himself is a very poor historian. In the ER, the patient was noted to be hypotensive, no clear-cut evidence of sepsis, patient was given fluid boluses, did not improve much, hence a central line was placed by the ER physician, and he was placed on norepinephrine drip. Presently the patient remains on norepinephrine at 20 mcg/m. His creatinine on this admission was 6.99, and today it is 4.62. In the ER his systolic blood pressure was in the 50s upon arrival. Patient was also placed on antibiotics empirically. 01/13/2018 Patient remained on norepinephrine 20 g per mL. Denied any complaints of chest pain or shortness of breath. Patient is otherwise poor historian. No leg swelling. Patient is being continued on antibiotics in the form of Zosyn empirically. Pulmonary and cardiology is following. No fever no chills. No nausea vomiting or diarrhea. Patient remained in A. fib. Heart rate is controlled now. 01/14/2018 Patient is on Levophed at 12 g daily. Denied any complaints of chest pain or shortness of breath. Heart rate is controlled. Patient was started on Midodrin. Renal function improved with creatinine level trending down. Continued on empiric antibiotics. No fever no chills. 01/15/2018 Patient is currently off Levophed drip. Blood pressure is maintained. Patient did go to swallow evaluation and was started on oral diet. Otherwise N function is normalized. Hemoglobin is 7.7 today. No compressive chest pain or shortness of breath. No fever no chills. 01/16/2018 Patient developed A. fib with RVR daily. And patient is currently hypotensive and went back on low-dose norepinephrine. Cardiology was consulted. Otherwise patient is having abdominal distention and tightness. CT of the abdomen. His was ordered. No fever no chills. Continued on empiric antibiotics and being monitored in the MICU. Patient does have a history of severe nonischemic cardiomyopathy. No complaints of chest pain or worsening shortness of breath. Patient is lethargic otherwise. Blood cultures and urine cultures are negative. Current medications reviewed.. Objective - Vital Signs Vital signs: Vital Signs Temp 98.2 F 01/16/18 08:00 Pulse 95 01/16/18 11:15 Resp 22 01/16/18 11:15 BP 83/55 01/16/18 11:15 Pulse Ox 99 01/16/18 11:15 Intake & Output 01/15/18 01/16/18 01/16/18 18:59 06:59 18:59 Intake Total 9029.086 2141.004 700 Output Total 760 570 195 Balance 1194.081 587.004 505 Weight 70.9 kg Intake: IV 525 1125 700 Magnesium Sulfate-D5w Pmx 200 200 1 gm In Dextrose/Water 1 100ml.bag @ 100 mls/hr IVPB Q1H [facility] Rx#: [id number] Sodium Chloride 0.9% 1, 525 825 300 000 ml @ 75 mls/hr IV . [id number] [facility] Rx#:[id number] Sodium Phosphate 10 mmol 100 200 In Sodium Chloride 0.9% 100 ml @ 50 mls/hr IVPB Q2H [facility] Rx#:[id number] Intake, IV Titration 1429.081 32.004 0 Amount Norepinephrine 16 mg In 54.081 32.004 0 Sodium Chloride 0.9% 250 ml @ Titrate IV .Q0M [facility] Rx#:[id number] Piperacillin-Tazobactam 3 50 .375 gm In Dextrose/Water 1 50ml.bag @ 12.5 mls/hr IVPB Q12H [facility] Rx#: [id number] Sodium Chloride 0.9% 1, 75 000 ml @ 75 mls/hr IV . [id number] [facility] Rx#:[id number] Sodium Chloride 0.9% 1, 1150 000 ml @ 999 mls/hr IV . Q1H1M [facility] Rx#:[id number] Sodium Ferric Gluconat- 100 Sucrose 125 mg In Sodium Chloride 0.9% 100 ml @ 100 mls/hr IVPB DAILY [facility] Rx#:[id number] Output: Urine 760 570 195 Other: Voiding Method Indwelling Catheter Indwelling Catheter Indwelling Catheter - Exam PHYSICAL EXAMINATION: Patient is lying in the bed comfortably, no acute distress, awake alert and oriented. Lethargic.. HEENT: Normocephalic. Neck is supple. Pupils reactive. Nostrils clear. Oral cavity is moist. Ears reveal no drainage. Neck reveals no JVD, carotid bruits, or thyromegaly. CHEST EXAMINATION: Trachea is central. Symmetrical expansion. Lung rocha clear to auscultation and percussion. CARDIAC: Normal S1, S2 with no gallops. No murmurs . Irregularly irregular rhythm ABDOMEN: Soft. Bowel sounds normal. No organomegaly. No abdominal bruits. Extremities: reveal no edema. No clubbing or cyanosis Neurologically awake, alert, oriented x2-3 with well-coordinated movements. No focal deficits noted Skin: No rash or skin lesions. Psychiatric: Coperative. Nonsuicidal Musculoskeletal: No joint swelling or deformity. Normal range of motion. - Labs CBC & Chem 7: 01/18/18 04:30 01/18/18 04:30 Labs: Abnormal Lab Results - Last 24 Hours (Table) 01/16/18 01/16/18 Range/Units 04:25 04:25 RBC 2.85 L (4.30-5.90) m/uL Hgb 7.6 L (13.0-17.5) gm/dL Hct 25.2 L (39.0-53.0) % MCHC 30.2 L (31.0-37.0) g/dL RDW 16.4 H (11.5-15.5) % Plt Count 98 L (150-450) k/uL Chloride 110 H (98-107) mmol/L BUN 8 L (9-20) mg/dL Calcium 6.8 L (8.4-10.2) mg/dL Phosphorus 1.4 L (2.5-4.5) mg/dL Magnesium 1.1 L (1.6-2.3) mg/dL Microbiology - Last 24 Hours (Table) 01/12/18 16:03 Blood Culture - Preliminary Blood No Growth after 72 hours Assessment and Plan Assessment: Acute hypotension likely due to hypovolemic versus cardiogenic shock. Levophed drip Nonoliguric acute kidney injury possible ATN due to hypotension and decreased renal perfusion. Creatinine 4.62 on admission. Normalized to 0.99 Acute on Chronic CHF with systolic dysfunction Anemia of chronic disease rule out iron deficiency. Atrial fibrillation with rapid ventricular rate. Rate is not controlled now. Abdominal distention possible ascites. History of alcohol abuse Hypovolemic hyponatremia Hypokalemia Nonischemic cardiopathy ejection fraction 20% Severe protein calorie malnutrition Ongoing nicotine addiction DVT prophylaxis Plan: Patient was continued on Levophed as needed. Continue with empiric antibiotics and IV hydration. Started on Midodrin. Cultures negative. Follow up renal function is improving.. Heart rate is controlled otherwise. Patient is being followed by cardiology and pulmonary and nephrology. Further recommendations based on the clinical course. Prognosis is guarded. Time with Patient: Greater than 30
--- NOTE | 2018-01-18 15:32 | P.PN ---
Subjective Progress Note Date: 01/17/18 Principal diagnosis: Hypotensive shock A. fib with RVR Acute kidney injury This is a 72-year-old white male with history of severe LV dysfunction, ejection fraction is supposedly 20%, COPD, chronic alcohol use, paroxysmal atrial fibrillation, patient was brought into the ER by EMS with altered mental status. Patient does have a history of paroxysmal atrial fibrillation with RVR, COPD exacerbation, acute kidney injury, severe alcohol abuse, nicotine dependence, nonischemic cardiomyopathy with LV dysfunction, ejection fraction of 20%, chronic systolic congestive heart failure, hypertension, and previous history of CVA. he was discharged home on 12/16/2015. The patient himself is a very poor historian. In the ER, the patient was noted to be hypotensive, no clear-cut evidence of sepsis, patient was given fluid boluses, did not improve much, hence a central line was placed by the ER physician, and he was placed on norepinephrine drip. Presently the patient remains on norepinephrine at 20 mcg/m. His creatinine on this admission was 6.99, and today it is 4.62. In the ER his systolic blood pressure was in the 50s upon arrival. Patient was also placed on antibiotics empirically. 01/13/2018 Patient remained on norepinephrine 20 g per mL. Denied any complaints of chest pain or shortness of breath. Patient is otherwise poor historian. No leg swelling. Patient is being continued on antibiotics in the form of Zosyn empirically. Pulmonary and cardiology is following. No fever no chills. No nausea vomiting or diarrhea. Patient remained in A. fib. Heart rate is controlled now. 01/14/2018 Patient is on Levophed at 12 g daily. Denied any complaints of chest pain or shortness of breath. Heart rate is controlled. Patient was started on Midodrin. Renal function improved with creatinine level trending down. Continued on empiric antibiotics. No fever no chills. 01/15/2018 Patient is currently off Levophed drip. Blood pressure is maintained. Patient did go to swallow evaluation and was started on oral diet. Otherwise N function is normalized. Hemoglobin is 7.7 today. No compressive chest pain or shortness of breath. No fever no chills. 01/16/2018 Patient developed A. fib with RVR daily. And patient is currently hypotensive and went back on low-dose norepinephrine. Cardiology was consulted. Otherwise patient is having abdominal distention and tightness. CT of the abdomen. His was ordered. No fever no chills. Continued on empiric antibiotics and being monitored in the MICU. Patient does have a history of severe nonischemic cardiomyopathy. No complaints of chest pain or worsening shortness of breath. Patient is lethargic otherwise. Blood cultures and urine cultures are negative. 01/17/2018 Patient is still in A. fib with RVR. Patient was started on amiodarone drip. Otherwise CT of abdomen pelvis showed moderate pleural effusion and moderate ascites. Gen. surgery recommended no intervention at this time. Currently patient is off norepinephrine. Cardiology and pulmonary is following otherwise. Renal function is much improved. Hemoglobin is around 7.6. Which has been stable. No fever no chills. No nausea vomiting or abdominal pain. Patient was able to eat better. Current medications reviewed.. Objective - Vital Signs Vital signs: Vital Signs Temp 98.4 F 01/17/18 12:00 Pulse 102 H 01/17/18 15:56 Resp 23 01/17/18 15:00 BP 83/55 01/17/18 15:00 Pulse Ox 94 L 01/17/18 15:00 Intake & Output 01/16/18 01/17/18 01/17/18 18:59 06:59 18:59 Intake Total 7886.555 1762.5 1105.813 Output Total 582 527 1395 Balance 805.472 407.5 -1119.187 Weight 71.1 kg Intake: IV 1150 1062.5 897.5 Dextrose 5% in Water 100 100 ml @ 618 mls/hr IV .Q10M [facility] with Amiodarone 150 mg Rx#:[id number] Magnesium Sulfate-D5w Pmx 200 1 gm In Dextrose/Water 1 100ml.bag @ 100 mls/hr IVPB Q1H [facility] Rx#: [id number] Magnesium Sulfate-D5w Pmx 100 200 1 gm In Dextrose/Water 1 100ml.bag @ 100 mls/hr IVPB Q1H [facility] Rx#: [id number] Piperacillin-Tazobactam 3 37.5 12.5 .375 gm In Dextrose/Water 1 50ml.bag @ 12.5 mls/hr IVPB [facility] Rx#: [id number] Piperacillin-Tazobactam 3 50 .375 gm In Dextrose/Water 1 50ml.bag @ 12.5 mls/hr IVPB Q8H [facility] Rx#: [id number] Potassium Chloride 10 meq 100 200 In Water For Injection 1 100ml.bag @ 100 mls/hr IVPB Q1H [facility] Rx#: [id number] Potassium Chloride 20 meq 100 In Water For Injection 1 100ml.bag @ 50 mls/hr [facility] Rx#: [id number] Potassium Phosphate 10 100 mmol In Sodium Chloride 0 .9% 100 ml @ 50 mls/hr IV Q2H [facility] Rx#:[id number] Sodium Chloride 0.9% 1, 750 825 135 000 ml @ 10 mls/hr IV . Q24H [facility] Rx#:[id number] Sodium Phosphate 10 mmol 200 In Sodium Chloride 0.9% 100 ml @ 50 mls/hr IVPB Q2H [facility] Rx#:[id number] Intake, IV Titration 85.472 208.313 Amount Amiodarone 450 mg In 208.313 Dextrose 5% in Water 250 ml @ 1 MG/MIN 33.33 mls/ hr IV .Q7H31M [facility] Rx#: [id number] Norepinephrine 16 mg In 10.472 Sodium Chloride 0.9% 250 ml @ Titrate IV .Q0M [facility] Rx#:[id number] Sodium Chloride 0.9% 1, 75 000 ml @ 10 mls/hr IV . Q24H [facility] Rx#:[id number] Output: Urine 817 [id number] 9319 Other: Voiding Method Indwelling Catheter Indwelling Catheter Indwelling Catheter - Exam PHYSICAL EXAMINATION: Patient is lying in the bed comfortably, no acute distress, awake alert and oriented. Lethargic.. HEENT: Normocephalic. Neck is supple. Pupils reactive. Nostrils clear. Oral cavity is moist. Ears reveal no drainage. Neck reveals no JVD, carotid bruits, or thyromegaly. CHEST EXAMINATION: Trachea is central. Symmetrical expansion. Lung rocha clear to auscultation and percussion. CARDIAC: Normal S1, S2 with no gallops. No murmurs . Irregularly irregular rhythm ABDOMEN: Soft. Bowel sounds normal. No organomegaly. No abdominal bruits. Extremities: reveal no edema. No clubbing or cyanosis Neurologically awake, alert, oriented x2-3 with well-coordinated movements. No focal deficits noted Skin: No rash or skin lesions. Psychiatric: Coperative. Nonsuicidal Musculoskeletal: No joint swelling or deformity. Normal range of motion. - Labs CBC & Chem 7: 01/18/18 04:30 01/18/18 04:30 Labs: Abnormal Lab Results - Last 24 Hours (Table) 01/17/18 01/17/18 01/17/18 Range/Units 04:15 04:15 11:50 RBC 2.85 L (4.30-5.90) m/uL Hgb 7.6 L (13.0-17.5) gm/dL Hct 24.8 L (39.0-53.0) % MCHC 30.6 L (31.0-37.0) g/dL RDW 16.9 H (11.5-15.5) % Plt Count 90 L (150-450) k/uL Chloride 109 H (98-107) mmol/L BUN 6 L (9-20) mg/dL Calcium 6.8 L (8.4-10.2) mg/dL Phosphorus 1.7 L 1.4 L (2.5-4.5) mg/dL Microbiology - Last 24 Hours (Table) 01/12/18 16:03 Blood Culture - Preliminary Blood No Growth after 96 hours Assessment and Plan Assessment: Acute hypotension likely due to hypovolemic versus cardiogenic shock. Levophed drip Nonoliguric acute kidney injury possible ATN due to hypotension and decreased renal perfusion. Creatinine 4.62 on admission. Normalized to 0.99 Acute on Chronic CHF with systolic dysfunction Anemia of chronic disease rule out iron deficiency. Atrial fibrillation with rapid ventricular rate. Rate is not controlled now. Abdominal distention possible ascites. History of alcohol abuse Hypovolemic hyponatremia Hypokalemia Nonischemic cardiopathy ejection fraction 20% Severe protein calorie malnutrition Ongoing nicotine addiction DVT prophylaxis Plan: Patient was continued on Levophed as needed. Continue with empiric antibiotics and IV hydration. Started on Midodrin. Cultures negative. Follow up renal function is improving.. Heart rate is controlled otherwise. Patient is being followed by cardiology and pulmonary and nephrology. Further recommendations based on the clinical course. Prognosis is guarded. Time with Patient: Greater than 30
[2018-01-18] MEDS: AMIODARONE 200 MG TAB PO SCH ×2 (15:49→21:13)
[2018-01-18] MEDS: TAMSULOSIN 0.4 MG CAP.ER.24H PO SCH (21:10)
[2018-01-18] MEDS: SODIUM CHLORIDE 0.9% 1,000 ML IV SCH (21:16)
[2018-01-19] MEDS: FUROSEMIDE 10 MG/ML 4 ML VIAL IV SCH ×2 (00:25→08:50)
[2018-01-19] MEDS: IPRATROPIUM-ALBUTEROL 3 ML NEB INHALATION PRN (02:47)
[2018-01-19] MEDS: PIPERACILLIN-TAZOBACTAM 3.375 GM in DEXTROSE/WATER 1 50ML.BAG IVPB SCH ×4 (04:58→21:55)
[2018-01-19 05:06] LABS: Anisocytosis Slight; Basophils % (A) 0 %; Eosinophils # (A) 0.1 k/uL (0-0.7); Eosinophils % (A) 1 %; HCT 23.1 % (39.0-53.0); Hypochromasia Marked; Lymphocytes % (A) 15 %; MCH 26.1 pg (25.0-35.0); MCHC 30.3 g/dL (31.0-37.0); MCV 85.9 fL (80.0-100.0); Mean Platelet Volume 7.8; Monocytes # (A) 0.4 k/uL (0-1.0); Monocytes % (A) 5 %; Neutrophils # (A) 4.9 k/uL (1.3-7.7); Neutrophils % (A) 77 %; Platelet Count 126 k/uL (150-450); RBC 2.69 m/uL (4.30-5.90); RDW 16.7 % (11.5-15.5); WBC 6.4 k/uL (3.8-10.6)
[2018-01-19 05:17] LABS: Anion Gap 5 mmol/L; Blood Urea Nitrogen 7 mg/dL (9-20); Carbon Dioxide 30 mmol/L (22-30); Chloride 97 mmol/L (98-107); Glucose 86 mg/dL (74-99); Magnesium 1.6 mg/dL (1.6-2.3); Phosphorus 1.8 mg/dL (2.5-4.5); Sodium 132 mmol/L (137-145)
[2018-01-19] MEDS: FORMOTEROL FUMARATE 20 MCG/2 ML NEBU INHALATION SCH (07:13)
[2018-01-19] MEDS: IPRATROPIUM-ALBUTEROL 3 ML NEB INHALATION SCH ×4 (07:13→19:40)
[2018-01-19] MEDS: BUDESONIDE 1 MG/2 ML NEBU INHALATION SCH ×2 (07:13→19:40)
[2018-01-19] MEDS: MIDODRINE 5 MG TAB PO SCH ×3 (08:41→18:17)
[2018-01-19] MEDS: MAGNESIUM OXIDE 400 MG TAB PO SCH ×3 (08:41→21:47)
[2018-01-19] MEDS: DIPHENOX-ATROP 2.5-0.025 MG 1 EACH TAB PO SCH ×2 (08:41→21:07)
[2018-01-19] MEDS: AMIODARONE 200 MG TAB PO SCH ×3 (08:41→21:47)
[2018-01-19] MEDS: DIGOXIN 250 MCG/ML 2 ML AMP IVP SCH (08:42)
[2018-01-19] MEDS: SODIUM PHOSPHATE 10 MMOL in SODIUM CHLORIDE 0.9% 100 ML IVPB SCH ×2 (08:43→11:22)
--- NOTE | 2018-01-19 08:43 | P.PN ---
Subjective Patient is seen in follow for acute kidney injury, which has resolved. Currently off Levophed. He is nonoliguric. Oral intake is fair. Denies any active chest pain or shortness of breath. Midodrine was started on January 13. Patient had CAT scan of the abdomen and pelvis done on January 16 which revealed pleural effusions as well as ascites. Now on oral amiodarone and digoxin for A. fib. Vital signs are stable. General: The patient appeared well nourished and normally developed. HEENT: Head exam is unremarkable. Neck is without jugular venous distension. LUNGS: Scattered rhonchi. Breath sounds decreased. HEART: Rate and Rhythm are regular. First and second heart sounds normal. No murmurs, rubs or gallops. ABDOMEN: Abdominal exam reveals normal bowel sounds. Non-tender and non- distended. No evidence of peritonitis. EXTREMITITES: No clubbing, cyanosis, or edema. Objective - Vital Signs Vital signs: Vital Signs Temp 98.1 F 01/19/18 04:00 Pulse 112 H 01/19/18 07:28 Resp 18 01/19/18 05:00 BP 96/57 01/19/18 05:00 Pulse Ox 97 01/19/18 05:00 Intake & Output 01/18/18 01/19/18 01/19/18 18:59 06:59 18:59 Intake Total 1310 67.5 Output Total 2020 585 Balance -710 -517.5 Weight 68.3 kg Intake: IV 710 30 Magnesium Sulfate-D5w Pmx 300 1 gm In Dextrose/Water 1 100ml.bag @ 100 mls/hr IVPB Q1H [facility] Rx#: [id number] Piperacillin-Tazobactam 3 50 .375 gm In Dextrose/Water 1 50ml.bag @ 12.5 mls/hr IVPB Q8H [facility] Rx#: [id number] Potassium Chloride 20 meq 150 In Water For Injection 1 100ml.bag @ 50 mls/hr IVPB Q2H [facility] Rx#: [id number] Potassium Phosphate 10 100 mmol In Sodium Chloride 0 .9% 100 ml @ 50 mls/hr IV Q2H [facility] Rx#:[id number] Sodium Chloride 0.9% 1, 110 30 000 ml @ 10 mls/hr IV . Q24H [facility] Rx#:[id number] Intake, IV Titration 37.5 Amount Piperacillin-Tazobactam 3 37.5 .375 gm In Dextrose/Water 1 50ml.bag @ 12.5 mls/hr IVPB Q8H [facility] Rx#: [id number] Oral 600 Output: Urine 2019 585 Other: Voiding Method Indwelling Catheter Indwelling Catheter - Labs CBC & Chem 7: 01/19/18 04:45 01/19/18 04:45 Labs: Abnormal Lab Results - Last 24 Hours (Table) 01/19/18 01/19/18 Range/Units 04:45 04:45 RBC 2.69 L (4.30-5.90) m/uL Hgb 7.0 L (13.0-17.5) gm/dL Hct 23.1 L (39.0-53.0) % MCHC 30.3 L (31.0-37.0) g/dL RDW 16.7 H (11.5-15.5) % Plt Count 126 L (150-450) k/uL Sodium 132 L (137-145) mmol/L Chloride 97 L (98-107) mmol/L BUN 7 L (9-20) mg/dL Calcium 7.0 L (8.4-10.2) mg/dL Phosphorus 1.8 L (2.5-4.5) mg/dL Microbiology - Last 24 Hours (Table) 01/12/18 16:03 Blood Culture - Final Blood No Growth after 144 hours Assessment and Plan Plan: Assessment: 1. Nonoliguric acute kidney injury mostly prerenal improving with IV hydration. Creatinine was 6.99 on admission. Now near 1. 2. Hypotension currently off Levophed. Cortisol level normal. 3. Systolic CHF with ejection fraction of less than 20% with mild to moderate mitral and tricuspid regurgitation. 4. Septic shock. Source likely being UTI. 5. Anemia. Iron deficiency noted. Status post 3 doses of IV iron. 6. Hypovolemic hyponatremia improved with IV hydration. Now hypervolemic. 7. Hypokalemia secondary to diuresis. Improved post replacement. 8. Hypomagnesemia from poor oral intake and diuresis. Improved post replacement. 9. Hypophosphatemia from poor oral intake. . 10. Fluid overload. 11. Atrial fibrillation maintained on oral amiodarone and digoxin. Plan: Decrease Lasix to 40 mg IV once daily. Avoid nephrotoxins. Maintain midodrine. Continue to monitor renal function and urine output. Potassium, magnesium, and phosphorus being replaced. Encourage oral intake. 1500 mL fluid restriction.
[2018-01-19] MEDS: MAGNESIUM SULFATE-D5W PMX 1 GM in DEXTROSE/WATER 1 100ML.BAG IVPB SCH ×2 (08:47→11:36)
[2018-01-19] MEDS: PANTOPRAZOLE 40 MG/10 ML VIAL IV SCH (09:00)
--- NOTE | 2018-01-19 09:11 | P.PN ---
Subjective Progress Note Date: 01/19/18 Principal diagnosis: Acute hypotension, hypovolemic and cardiogenic shock This is a 72-year-old white male with history of severe LV dysfunction, ejection fraction is supposedly 20%, COPD, chronic alcohol use, paroxysmal atrial fibrillation, patient was brought into the ER yesterday by EMS with altered mental status. 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 When EMS arrived on the scene , the patient was on the ground, unknown how long he has been on the floor. Looking back at the patient's history in the chart, patient was recently admitted to the hospital, and he was discharged home on 12/16/2015. His medical problems at that time included paroxysmal atrial fibrillation with RVR, COPD exacerbation, acute kidney injury, severe alcohol abuse, nicotine dependence, nonischemic cardiomyopathy with LV dysfunction, ejection fraction of 20%, chronic systolic congestive heart failure, hypertension, and previous history of CVA. The patient himself is a very poor historian. In the ER, the patient was noted to be hypotensive, no clear-cut evidence of sepsis, patient was given fluid boluses, did not improve much, hence a central line was placed by the ER physician, and he was placed on norepinephrine drip. Presently the patient remains on norepinephrine at 20 mcg/m. Blood pressure remains marginal, his hypotension was felt to be secondary to cardiogenic shock, possible hypovolemic shock. His creatinine on this admission was 6.99, and today it is 4.62. In the ER his systolic blood pressure was in the 50s upon arrival. Patient was also placed on antibiotics empirically although no clear-cut evidence of infection at this point. Patient was reevaluated today on 01/14/2018, remains in the intensive care unit, remains on 18 g of norepinephrine, blood pressure remains marginal. Patient received a total of 3-1/2 L of fluids, urine output has been excellent about 75 mL/h, his renal functioning has shown a significant improvement today. Creatinine is 1.89 today compared to 6.99 on admission. More fluids will be given today, we'll continue to titrate the norepinephrine down as tolerated maintaining a mean arterial pressure of 65 or higher. Seen by cardiology, and felt that the patient has severe cardiomyopathy and LV dysfunction. Chest x- ray showed right basilar atelectasis, left side is significantly improved over the last 24 hours. No more atelectasis or consolidation. All his labs were reviewed including CBC and basic metabolic profile. Potassium is a bit on the low side 3.3 being corrected as per protocol. His lactic acid was 1.7 on 917 cultures so far are negative. Patient remains on empiric antibiotics. He will have a modified barium swallow today. Reevaluated today on 01/15/2018, patient is looking and feeling much better, he is down to 2 g of norepinephrine, hence I will give her more fluids today, and I will likely discontinue norepinephrine. His renal functioning is significantly improved. Creatinine is 0.99 today. And he will likely come off the levo fed easily. I plan to transfer the patient out of the ICU to a monitor bed on selective patient is also on midodrine and his IV fluid is maintained at 70 mL per hour. Clinically the patient feels great, he is relatively asymptomatic. No chest x-ray was done today, modified barium swallow showed one episode of transient penetration with thin liquid barium, and there was some vallecular residual. Final report from Department of speech pathology is pending. Reevaluated today on 01/16/2018, patient remains in the ICU, required to go back on norepinephrine, presently on 2 g of norepinephrine. Developed atrial fibrillation with RVR this morning, cardiology was consulted. Patient was noted to have low magnesium, being corrected. And cardiology was consulted that yet to see the patient this morning. Presently his atrial fibrillation with RVR is ranging between 90-120. And blood pressure is marginal on 2 g of norepinephrine. Patient is known to have history of severe cardiomyopathy and LV dysfunction. Hemoglobin is about the same at 7.6. Basic metabolic profile is normal renal profile is normal. Serum cortisol done yesterday was normal. Reevaluated today on 01/17/2018, patient is now in atrial fibrillation with RVR, requiring amiodarone bolus and drip. Developed abdominal pain yesterday, seen by surgery on consultation, and his CT of the abdomen was nondiagnostic of surgical abdomen. He is off norepinephrine today, but he is on amiodarone, blood pressure seems to be stable, his mean arterial pressure is about 66. Again he is off norepinephrine. Renal functioning remains normal today although he came in with significant acute kidney injury which has resolved. Hemoglobin is holding at 7.6. Patient is surprisingly asymptomatic. But he is requiring to stay in the ICU mostly because of his hemodynamic issues and now atrial fibrillation with RVR on amiodarone. Reevaluated today on 01/18/2018, patient remains in the ICU, remains on amiodarone drip for atrial fibrillation with RVR, denies any shortness of breath , denies any abdominal pain, no nausea, no vomiting. Cardiology is still addressing his atrial fibrillation with RVR, seems to be poorly controlled at this point, rate is in the 140 range.he is presently off norepinephrine, chest x -ray is showing mostly atelectasis, and small bilateral tiny pleural effusions not large enough to consider thoracentesis.all labs were also reviewed, WBC count is 6.2 hemoglobin is 7.2 and his basic metabolic profile is noted to be relatively unremarkable except for low potassium of 3.5 be corrected his magnesium is being corrected and his phosphate is being corrected. BUN is 6 creatinine 0.87. On 01/19/2018 patient seen in follow-up in the intensive care unit. He is awake and alert, in no acute distress, pulse ox on 2 L per nasal cannula is 97- 100%. He is afebrile, he maintains in A. fib, and his heart rate is ranging anywhere from 104 to at 150 BPM. Levo fed has been off since yesterday. Maintenance IVs 0.9 normal saline at a rate of 20 ML per hour. Currently blood pressure is 96/57. Urine output is 35-50 ML per hour. Lung sounds are positive for diffuse wheezes and rhonchi, patient has a loose congested cough. Yesterday chest x-ray was reviewed and showed cardiomegaly, bibasilar atelectasis, and small bilateral pleural effusions. Labs have been reviewed, WBC 6.4, hemoglobin is 7.0, sodium is 132, potassium is 4.0, chloride is 97, B1 is 7, creatinine is 0.87. Patient remains on IV diuretics which have been cut back to once daily today. Received a dose of IV Lasix yesterday which seemed to help with the rate control. Will receive another dose today. Remains on oral amiodarone at 200 mg 3 times daily, on anticoagulation in the form of several toe, continues on Zosyn. Urine and blood cultures have been negative. Overall he has improved, stable, and can be considered for transfer out of the intensive care unit today with general medical floor with remote telemetry. Objective - Vital Signs Vital signs: Vital Signs Temp 98.1 F 01/19/18 04:00 Pulse 112 H 01/19/18 07:28 Resp 18 01/19/18 05:00 BP 96/57 01/19/18 05:00 Pulse Ox 97 01/19/18 05:00 Intake & Output 01/18/18 01/19/18 01/19/18 18:59 06:59 18:59 Intake Total 1310 67.5 Output Total 2020 585 Balance -710 -517.5 Weight 68.3 kg Intake: IV 710 30 Magnesium Sulfate-D5w Pmx 300 1 gm In Dextrose/Water 1 100ml.bag @ 100 mls/hr IVPB Q1H [facility] Rx#: [id number] Piperacillin-Tazobactam 3 50 .375 gm In Dextrose/Water 1 50ml.bag @ 12.5 mls/hr IVPB Q8H [facility] Rx#: [id number] Potassium Chloride 20 meq 150 In Water For Injection 1 100ml.bag @ 50 mls/hr IVPB Q2H [facility] Rx#: [id number] Potassium Phosphate 10 100 mmol In Sodium Chloride 0 .9% 100 ml @ 50 mls/hr IV Q2H [facility] Rx#:[id number] Sodium Chloride 0.9% 1, 110 30 000 ml @ 10 mls/hr IV . Q24H [facility] Rx#:[id number] Intake, IV Titration 37.5 Amount Piperacillin-Tazobactam 3 37.5 .375 gm In Dextrose/Water 1 50ml.bag @ 12.5 mls/hr IVPB Q8H [facility] Rx#: [id number] Oral 600 Output: Urine 2019 585 Other: Voiding Method Indwelling Catheter Indwelling Catheter - Exam Physical Exam: 72-year-old white male, laying in bed, comfortable, asymptomatic , and in no form of respiratory distress. Head: relatively unremarkable, looks slightly pale however. HEENT:[Neck is supple no neck masses no thyromegaly, moist mucous membranes this morning.no icterus was appreciated. Chest: rhonchi and wheezes noted bilaterally more so on forced expiratory maneuver. Cardiac Exam: [Irregular irregular rhythm. Normal S1 and S2, no S3 gallop, no murmur.] Abdomen: soft nontender, no rebound no guarding positive bowel sounds. Extremities: no cyanosis or clubbing or edema. Neurological Exam: Alert and oriented 3, no gross deficit is noted. Psychiatric: Normal mood affect and mental status examination. Lymphatics: (palpable lymph nodes. - Labs CBC & Chem 7: 01/19/18 04:45 01/19/18 04:45 Labs: Abnormal Lab Results - Last 24 Hours (Table) 01/19/18 01/19/18 Range/Units 04:45 04:45 RBC 2.69 L (4.30-5.90) m/uL Hgb 7.0 L (13.0-17.5) gm/dL Hct 23.1 L (39.0-53.0) % MCHC 30.3 L (31.0-37.0) g/dL RDW 16.7 H (11.5-15.5) % Plt Count 126 L (150-450) k/uL Sodium 132 L (137-145) mmol/L Chloride 97 L (98-107) mmol/L BUN 7 L (9-20) mg/dL Calcium 7.0 L (8.4-10.2) mg/dL Phosphorus 1.8 L (2.5-4.5) mg/dL Microbiology - Last 24 Hours (Table) 01/12/18 16:03 Blood Culture - Final Blood No Growth after 144 hours Assessment and Plan Plan: 1 acute hypovolemic and cardiogenic shock with profound hypotension on presentation. required norepinephrine for a while, presently he is off norepinephrine, blood pressure is stable however his atrial fibrillation is poorly controlled presently in A. fib with RVR in spite of amiodarone drip. 2 chronic atrial fibrillation with RVR. Being addressed by cardiology on the case. 3 chronic systolic heart failure with LV dysfunction. EF is 20%. 4 abdominal pain, workup was nondiagnostic, and clearly his abdominal pain was not surgical 5 acute kidney injury on presentation,mostly secondary to hypotension and dehydration resolved with hydration.. Recommendation: Continue medical treatment, patient will receive a dose of IV digoxin for rate control, remains on oral amiodarone. Remains bronchospastic and congested, continue with nebulized bronchodilators, and Pulmicort, will discontinue Perforomist as it may exacerbate his tachycardia. Cultures remain negative, collect the sputum culture. Continue with Zosyn. He said been cut back to once daily per nephrology. Hemodynamically stable, no acute complaints, transfer of the intensive care unit to general medical floor with remote telemetry I performed a history & physical examination of the patient and discussed their management with my nurse practitioner, Carolina Cochran. I reviewed the nurse practitioner's note and agree with the documented findings and plan of care. Lung sounds are positive for diffuse wheezes and rhonchi throughout the lung rocha. The findings and the impression was discussed with the patient. I attest to the documentation by the nurse practitioner. Critical care time is over 30 minutes Time with Patient: Greater than 30
[2018-01-19] MEDS: ACETAMINOPHEN TAB 500 MG TAB PO PRN ×2 (09:55→16:26)
--- NOTE | 2018-01-19 10:44 | P.PN ---
Subjective Progress Note Date: 01/18/18 Principal diagnosis: Hypotensive shock A. fib with RVR Acute kidney injury This is a 72-year-old white male with history of severe LV dysfunction, ejection fraction is supposedly 20%, COPD, chronic alcohol use, paroxysmal atrial fibrillation, patient was brought into the ER by EMS with altered mental status. Patient does have a history of paroxysmal atrial fibrillation with RVR, COPD exacerbation, acute kidney injury, severe alcohol abuse, nicotine dependence, nonischemic cardiomyopathy with LV dysfunction, ejection fraction of 20%, chronic systolic congestive heart failure, hypertension, and previous history of CVA. he was discharged home on 12/16/2015. The patient himself is a very poor historian. In the ER, the patient was noted to be hypotensive, no clear-cut evidence of sepsis, patient was given fluid boluses, did not improve much, hence a central line was placed by the ER physician, and he was placed on norepinephrine drip. Presently the patient remains on norepinephrine at 20 mcg/m. His creatinine on this admission was 6.99, and today it is 4.62. In the ER his systolic blood pressure was in the 50s upon arrival. Patient was also placed on antibiotics empirically. 01/13/2018 Patient remained on norepinephrine 20 g per mL. Denied any complaints of chest pain or shortness of breath. Patient is otherwise poor historian. No leg swelling. Patient is being continued on antibiotics in the form of Zosyn empirically. Pulmonary and cardiology is following. No fever no chills. No nausea vomiting or diarrhea. Patient remained in A. fib. Heart rate is controlled now. 01/14/2018 Patient is on Levophed at 12 g daily. Denied any complaints of chest pain or shortness of breath. Heart rate is controlled. Patient was started on Midodrin. Renal function improved with creatinine level trending down. Continued on empiric antibiotics. No fever no chills. 01/15/2018 Patient is currently off Levophed drip. Blood pressure is maintained. Patient did go to swallow evaluation and was started on oral diet. Otherwise N function is normalized. Hemoglobin is 7.7 today. No compressive chest pain or shortness of breath. No fever no chills. 01/16/2018 Patient developed A. fib with RVR daily. And patient is currently hypotensive and went back on low-dose norepinephrine. Cardiology was consulted. Otherwise patient is having abdominal distention and tightness. CT of the abdomen. His was ordered. No fever no chills. Continued on empiric antibiotics and being monitored in the MICU. Patient does have a history of severe nonischemic cardiomyopathy. No complaints of chest pain or worsening shortness of breath. Patient is lethargic otherwise. Blood cultures and urine cultures are negative. 01/17/2018 Patient is still in A. fib with RVR. Patient was started on amiodarone drip. Otherwise CT of abdomen pelvis showed moderate pleural effusion and moderate ascites. Gen. surgery recommended no intervention at this time. Currently patient is off norepinephrine. Cardiology and pulmonary is following otherwise. Renal function is much improved. Hemoglobin is around 7.6. Which has been stable. No fever no chills. No nausea vomiting or abdominal pain. Patient was able to eat better. 01/18/2018 Currently patient remained on atrial fibrillation with RVR. Continued on amiodarone changed to by mouth. Patient is still hypotensive. Patient was started on digoxin as well. Otherwise patient denied any complaints of chest pain or shortness of breath. No nausea vomiting or abdominal pain. Patient is on Lasix as well. Chest x-ray showed small bilateral pleural effusions. Hemoglobin is stable around 7.2. No leukocytosis. Creatinine 0.87. Cardiology and pulmonary is following. Current medications reviewed.. Active Medications Generic Name Dose Route Start Last Admin Trade Name Freq PRN Reason Stop Dose Admin Acetaminophen 500 mg 01/12/18 20:39 01/18/18 14:41 Tylenol Tab PO 500 mg Q6HR PRN Administration Fever and/ or Pain Albuterol/Ipratropium 3 ml 01/13/18 08:00 01/18/18 12:18 Duoneb 0.5 Mg-3 Mg/3 Ml Soln INHALATION 3 ml RT-QID [facility] Administration Albuterol/Ipratropium 3 ml 01/16/18 03:43 01/18/18 05:51 Duoneb 0.5 Mg-3 Mg/3 Ml Soln INHALATION 3 ml RT-Q2H PRN Administration Shortness Of Breath Or Wheezing Amiodarone HCl 200 mg 01/18/18 16:00 Cordarone PO TID [facility] Artificial Tears 1 drops 01/12/18 18:58 Artificial Tear Drops BOTH EYES Q4HR PRN Dry Eye(s) Budesonide 1 mg 01/13/18 08:00 01/18/18 09:14 Pulmicort INHALATION 1 mg RT-BID [facility] Administration Digoxin 125 mcg 01/18/18 17:00 Lanoxin IVP 01/18/18 17:01 ONCE ONE Digoxin 125 mcg 01/19/18 09:00 Lanoxin IVP DAILY [facility] Diphenoxylate HCl/Atropine 1 each 01/12/18 21:00 01/18/18 08:06 Lomotil PO 1 each BID [facility] Administration Folic Acid 1 mg 01/13/18 12:00 01/18/18 12:40 Folic Acid PO 1 mg DAILY@1200 [facility] Administration Formoterol Fumarate 20 mcg 01/13/18 08:00 01/18/18 09:14 Perforomist INHALATION 20 mcg RT-BID [facility] Administration Furosemide 40 mg 01/17/18 09:15 01/18/18 08:06 Lasix IV 40 mg Q12HR [facility] Administration Norepinephrine Bitartrate 16 250 mls @ 0 mls/hr 01/12/18 17:00 01/16/18 15:00 mg/ Sodium Chloride IV 0 mcg/min .Q0M [facility] 0 mls/hr Titration Protocol Titrate Sodium Chloride 1,000 mls @ 10 mls/hr 01/12/18 21:00 01/17/18 20:34 Saline 0.9% IV 10 mls/hr .Q24H [facility] Administration Piperacillin/Tazobactam/ 50 mls @ 12.5 mls/hr 01/15/18 20:00 01/18/18 11:10 Dextrose 3.375 gm/ IV Solution IVPB 12.5 mls/hr Q8H [facility] Administration Magnesium Oxide 400 mg 01/12/18 22:00 01/18/18 08:06 Mag-Ox PO 400 mg TID [facility] Administration Midodrine 10 mg 01/13/18 18:42 01/18/18 12:40 Proamatine PO 10 mg AC-TID [facility] Administration Miscellaneous Information 1 each 01/14/18 04:54 Potassium Per Protocol MISCELLANE DAILY PRN Per Protocol Protocol Miscellaneous Information 1 each 01/16/18 05:13 Magnesium Per Protocol MISCELLANE DAILY PRN Per Protocol Protocol Miscellaneous Information 1 each 01/17/18 14:54 Phosphorus Per Protocol MISCELLANE DAILY PRN Per Protocol Protocol Multivitamins 1 each 01/13/18 12:00 01/18/18 12:41 Theragran PO 1 each DAILY@1200 [facility] Administration Naloxone HCl 0.2 mg 01/12/18 18:58 Narcan IV Q2M PRN Opioid Reversal Nicotine 1 patch 01/13/18 09:00 01/18/18 08:36 Habitrol 14mg/24hr Patch TRANSDERM Not Given DAILY [facility] Pantoprazole Sodium 40 mg 01/13/18 09:00 01/18/18 08:06 Protonix IV 40 mg DAILY [facility] Administration Rivaroxaban 20 mg 01/17/18 15:15 01/18/18 08:07 Xarelto PO 20 mg DAILY [facility] Administration Tamsulosin HCl 0.4 mg 01/12/18 21:00 01/17/18 20:34 Flomax PO 0.4 mg HS [facility] Administration Temazepam 15 mg 01/12/18 20:39 Restoril PO HS PRN Insomnia Thiamine HCl 100 mg 01/13/18 12:00 01/18/18 12:41 Vitamin B-1 PO 100 mg DAILY@1200 [facility] Administration Objective - Vital Signs Vital signs: Vital Signs Temp 98.7 F 01/18/18 08:00 Pulse 130 H 01/18/18 13:00 Resp 20 01/18/18 13:00 BP 84/57 01/18/18 13:00 Pulse Ox 96 01/18/18 13:00 Intake & Output 01/17/18 01/18/18 01/18/18 18:59 06:59 18:59 Intake Total 1235.813 908.776 3244 Output Total 2565 1390 1515 Balance -1329.187 -752.321 -375 Weight 69 kg Intake: IV 1027.5 390.0 660 Dextrose 5% in Water 100 100 ml @ 618 mls/hr IV .Q10M ONE with Amiodarone 150 mg Rx#:[id number] Magnesium Sulfate-D5w Pmx 200 100 1 gm In Dextrose/Water 1 100ml.bag @ 100 mls/hr IVPB Q1H [facility] Rx#: [id number] Magnesium Sulfate-D5w Pmx 300 1 gm In Dextrose/Water 1 100ml.bag @ 100 mls/hr IVPB Q1H [facility] Rx#: [id number] Piperacillin-Tazobactam 3 12.5 .375 gm In Dextrose/Water 1 50ml.bag @ 12.5 mls/hr IVPB ONCE STA Rx#: [id number] Piperacillin-Tazobactam 3 50 100.0 50 .375 gm In Dextrose/Water 1 50ml.bag @ 12.5 mls/hr IVPB Q8H [facility] Rx#: [id number] Potassium Chloride 10 meq 200 In Water For Injection 1 100ml.bag @ 100 mls/hr IVPB Q1H [facility] Rx#: [id number] Potassium Chloride 20 meq 100 In Water For Injection 1 100ml.bag @ 50 mls/hr IVPB ONCE STA Rx#: [id number] Potassium Chloride 20 meq 50 150 In Water For Injection 1 100ml.bag @ 50 mls/hr IVPB Q2H [facility] Rx#: [id number] Potassium Phosphate 10 200 100 100 mmol In Sodium Chloride 0 .9% 100 ml @ 50 mls/hr IV Q2H [facility] Rx#:[id number] Sodium Chloride 0.9% 1, 165 40 60 000 ml @ 10 mls/hr IV . Q24H [facility] Rx#:[id number] Intake, IV Titration 208.313 247.679 Amount Amiodarone 450 mg In 208.313 247.679 Dextrose 5% in Water 250 ml @ 1 MG/MIN 33.33 mls/ hr IV .Q7H31M [facility] Rx#: [id number] Oral 480 Output: Urine 2565 1390 1515 Other: Voiding Method Indwelling Catheter Indwelling Catheter Indwelling Catheter - Exam PHYSICAL EXAMINATION: Patient is lying in the bed comfortably, no acute distress, awake alert and oriented. Lethargic.. HEENT: Normocephalic. Neck is supple. Pupils reactive. Nostrils clear. Oral cavity is moist. Ears reveal no drainage. Neck reveals no JVD, carotid bruits, or thyromegaly. CHEST EXAMINATION: Trachea is central. Symmetrical expansion. Lung rocha clear to auscultation and percussion. CARDIAC: Normal S1, S2 with no gallops. No murmurs . Irregularly irregular rhythm ABDOMEN: Soft. Bowel sounds normal. No organomegaly. No abdominal bruits. Extremities: reveal no edema. No clubbing or cyanosis Neurologically awake, alert, oriented x2-3 with well-coordinated movements. No focal deficits noted Skin: No rash or skin lesions. Psychiatric: Coperative. Nonsuicidal Musculoskeletal: No joint swelling or deformity. Normal range of motion. - Labs CBC & Chem 7: 01/19/18 04:45 01/19/18 04:45 Labs: Abnormal Lab Results - Last 24 Hours (Table) 01/18/18 01/18/18 Range/Units 04:30 04:30 RBC 2.82 L (4.30-5.90) m/uL Hgb 7.2 L (13.0-17.5) gm/dL Hct 24.2 L (39.0-53.0) % MCHC 29.8 L (31.0-37.0) g/dL RDW 16.7 H (11.5-15.5) % Plt Count 106 L (150-450) k/uL Sodium 134 L (137-145) mmol/L Carbon Dioxide 31 H (22-30) mmol/L BUN 6 L (9-20) mg/dL Calcium 6.6 L (8.4-10.2) mg/dL Phosphorus 2.4 L (2.5-4.5) mg/dL Magnesium 1.3 L (1.6-2.3) mg/dL Microbiology - Last 24 Hours (Table) 01/12/18 16:03 Blood Culture - Preliminary Blood No Growth after 120 hours Assessment and Plan Assessment: Acute hypotension likely due to hypovolemic versus cardiogenic shock. Was on Levophed drip Nonoliguric acute kidney injury possible ATN due to hypotension and decreased renal perfusion. Creatinine 4.62 on admission. Normalized to 0.99 Acute on Chronic CHF with systolic dysfunction Anemia of chronic disease rule out iron deficiency. Atrial fibrillation with rapid ventricular rate. Rate is not controlled now. Continued on amiodarone and digoxin. Abdominal distention possible ascites. History of alcohol abuse Hypovolemic hyponatremia Hypokalemia Nonischemic cardiopathy ejection fraction 20% Severe protein calorie malnutrition Ongoing nicotine addiction DVT prophylaxis Plan: Patient was continued on Levophed as needed. Continue with empiric antibiotics and IV hydration. Started on Midodrin. Continue with amiodarone and digoxin. Cultures negative. Follow up renal function is improving.. Patient is being followed by cardiology and pulmonary and nephrology. Further recommendations based on the clinical course. Prognosis is guarded. Time with Patient: Greater than 30
[2018-01-19 11:24] VITALS: BMI 20.4
[2018-01-19] MEDS: NICOTINE 14MG/24HR PATCH TRANSDERM SCH (11:24)
[2018-01-19] MEDS: RIVAROXABAN 20 MG TAB PO SCH (11:43)
[2018-01-19] MEDS: FOLIC ACID 1 MG TAB PO SCH (11:43)
[2018-01-19] MEDS: MULTIVITAMINS, THERA 1 EACH TAB PO SCH (11:43)
[2018-01-19] MEDS: THIAMINE 100 MG TAB PO SCH (11:44)
--- NOTE | 2018-01-19 12:39 | P.PN ---
Subjective Patient sitting comfortably in a chair watching television. Denies any chest discomfort no shortness of breath. A. fib with RVR. Currently on digoxin and amiodarone. Low blood pressure has been documented but I asked the nurse to recheck this manually with an appropriately sized cuff. This gentleman looks too good today On examination heart sounds are irregular and rapid at sounds are clear Abdomen soft nontender No JVD no lower extremity edema Impression A. fib with RVR on amiodarone and digoxin. Beta blockers may be started if blood pressure is in the normal range History of excessive alcohol use upon discharge from the hospital Suggest Adjustment of A. fib medications with and addition of beta blockers if possible and complete abstinence from alcohol use Will follow on a when necessary basis Objective - Vital Signs Vital signs: Vital Signs Temp 98.1 F 01/19/18 04:00 Pulse 122 H 01/19/18 11:06 Resp 31 H 01/19/18 11:00 BP 92/65 01/19/18 11:00 Pulse Ox 100 01/19/18 11:00 Intake & Output 01/18/18 01/19/18 01/19/18 18:59 06:59 18:59 Intake Total 1310 67.5 610 Output Total 2020 585 890 Balance -710 -517.5 -280 Weight 68.3 kg 68.3 kg Intake: IV 710 30 50 Magnesium Sulfate-D5w Pmx 300 1 gm In Dextrose/Water 1 100ml.bag @ 100 mls/hr IVPB Q1H [facility] Rx#: [id number] Piperacillin-Tazobactam 3 50 10 .375 gm In Dextrose/Water 1 50ml.bag @ 12.5 mls/hr IVPB Q8H [facility] Rx#: [id number] Potassium Chloride 20 meq 150 In Water For Injection 1 100ml.bag @ 50 mls/hr IVPB Q2H [facility] Rx#: [id number] Potassium Phosphate 10 100 mmol In Sodium Chloride 0 .9% 100 ml @ 50 mls/hr IV Q2H [facility] Rx#:[id number] Sodium Chloride 0.9% 1, 110 30 40 000 ml @ 10 mls/hr IV . Q24H [facility] Rx#:[id number] Intake, IV Titration 37.5 200 Amount Magnesium Sulfate-D5w Pmx 100 1 gm In Dextrose/Water 1 100ml.bag @ 100 mls/hr IVPB Q1H [facility] Rx#: [id number] Piperacillin-Tazobactam 3 37.5 .375 gm In Dextrose/Water 1 50ml.bag @ 12.5 mls/hr IVPB Q8H [facility] Rx#: [id number] Sodium Phosphate 10 mmol 100 In Sodium Chloride 0.9% 100 ml @ 50 mls/hr IVPB Q2H [facility] Rx#:[id number] Oral 600 360 Output: Urine 2020 585 890 Other: Voiding Method Indwelling Catheter Indwelling Catheter Indwelling Catheter - Labs CBC & Chem 7: 01/19/18 04:45 01/19/18 04:45 Labs: Abnormal Lab Results - Last 24 Hours (Table) 01/19/18 01/19/18 Range/Units 04:45 04:45 RBC 2.69 L (4.30-5.90) m/uL Hgb 7.0 L (13.0-17.5) gm/dL Hct 23.1 L (39.0-53.0) % MCHC 30.3 L (31.0-37.0) g/dL RDW 16.7 H (11.5-15.5) % Plt Count 126 L (150-450) k/uL Sodium 132 L (137-145) mmol/L Chloride 97 L (98-107) mmol/L BUN 7 L (9-20) mg/dL Calcium 7.0 L (8.4-10.2) mg/dL Phosphorus 1.8 L (2.5-4.5) mg/dL Microbiology - Last 24 Hours (Table) 01/12/18 16:03 Blood Culture - Final Blood No Growth after 144 hours
--- NOTE | 2018-01-19 14:58 | P.PN ---
Subjective Progress Note Date: 01/19/18 72-year-old male sitting up in a chair in the ICU. Appears in no acute distress.. This been no new events. Currently the patient is denying any abdominal pain when questioning taking a diet without difficulty CAT scan showed no evidence of a bowel obstruction or inflammatory bowel disease ascites noted Objective - Vital Signs Vital signs: Vital Signs Temp 98.1 F 01/19/18 12:00 Pulse 124 H 01/19/18 12:00 Resp 20 01/19/18 12:00 BP 100/60 01/19/18 12:00 Pulse Ox 97 01/19/18 12:00 Intake & Output 01/18/18 01/19/18 01/19/18 18:59 06:59 18:59 Intake Total 1310 67.5 700 Output Total 2019 585 1165 Balance -710 -517.5 -465 Weight 68.3 kg 68.3 kg Intake: IV 710 30 140 Magnesium Sulfate-D5w Pmx 300 1 gm In Dextrose/Water 1 100ml.bag @ 100 mls/hr IVPB Q1H [facility] Rx#: [id number] Piperacillin-Tazobactam 3 50 90 .375 gm In Dextrose/Water 1 50ml.bag @ 12.5 mls/hr IVPB Q8H [facility] Rx#: [id number] Potassium Chloride 20 meq 150 In Water For Injection 1 100ml.bag @ 50 mls/hr IVPB Q2H [facility] Rx#: [id number] Potassium Phosphate 10 100 mmol In Sodium Chloride 0 .9% 100 ml @ 50 mls/hr IV Q2H [facility] Rx#:[id number] Sodium Chloride 0.9% 1, 110 30 50 000 ml @ 10 mls/hr IV . Q24H [facility] Rx#:[id number] Intake, IV Titration 37.5 200 Amount Magnesium Sulfate-D5w Pmx 100 1 gm In Dextrose/Water 1 100ml.bag @ 100 mls/hr IVPB Q1H [facility] Rx#: [id number] Piperacillin-Tazobactam 3 37.5 .375 gm In Dextrose/Water 1 50ml.bag @ 12.5 mls/hr IVPB Q8H [facility] Rx#: [id number] Sodium Phosphate 10 mmol 100 In Sodium Chloride 0.9% 100 ml @ 50 mls/hr IVPB Q2H [facility] Rx#:[id number] Oral 600 360 Output: Urine 2019 585 1165 Other: Voiding Method Indwelling Catheter Indwelling Catheter Indwelling Catheter - Exam Physical exam 72-year-old sitting up in a chair taking a diet difficulties denying dizziness lightheadedness chest pain or shortness of breath Lungs diminished at the bases otherwise clear Heart S1-S2 audible irregular Abdomen soft nondistended tolerating diet mild epigastric tenderness noted Extremities no - Labs CBC & Chem 7: 01/19/18 04:45 01/19/18 04:45 Labs: Abnormal Lab Results - Last 24 Hours (Table) 01/19/18 01/19/18 Range/Units 04:45 04:45 RBC 2.69 L (4.30-5.90) m/uL Hgb 7.0 L (13.0-17.5) gm/dL Hct 23.1 L (39.0-53.0) % MCHC 30.3 L (31.0-37.0) g/dL RDW 16.7 H (11.5-15.5) % Plt Count 126 L (150-450) k/uL Sodium 132 L (137-145) mmol/L Chloride 97 L (98-107) mmol/L BUN 7 L (9-20) mg/dL Calcium 7.0 L (8.4-10.2) mg/dL Phosphorus 1.8 L (2.5-4.5) mg/dL Microbiology - Last 24 Hours (Table) 01/12/18 16:03 Blood Culture - Final Blood No Growth after 144 hours Assessment and Plan Assessment: Impression CT of the abdomen pelvis show moderate ascites no evidence of a bowel obstruction or perforation Chronic atrial fibrillation with episodes of RVR Chronic systolic heart failure with LV dysfunction EF 20 Abdominal pain with nondiagnostic workup Plan No evidence of an acute surgical abdomen at this time We'll follow with you Continue conservative management Continue recommendations by cardiology defer to Continue recommendations by pulmonary service The above impression and plan of care have been discussed and directed by signing physician. Albina Lyman nurse practitioner acting as scribe for signing physician.
[2018-01-19] MEDS: TAMSULOSIN 0.4 MG CAP.ER.24H PO SCH (21:07)
[2018-01-19] MEDS: SODIUM CHLORIDE 0.9% 1,000 ML IV SCH (21:54)
[2018-01-19] MEDS ORDERED: POTAS-SOD-PHOS 278-164-250 MG 1 EACH PACKET PO SCH (22:30)
[2018-01-20] MEDS: IPRATROPIUM-ALBUTEROL 3 ML NEB INHALATION PRN (01:13)
[2018-01-20 06:00] LABS: Anisocytosis Slight; Basophils % (A) 0 %; Eosinophils # (A) 0.1 k/uL (0-0.7); Eosinophils % (A) 2 %; HCT 23.3 % (39.0-53.0); Hypochromasia Moderate; Lymphocytes # (A) 1.1 k/uL (1.0-4.8); Lymphocytes % (A) 19 %; MCH 25.9 pg (25.0-35.0); MCHC 30.2 g/dL (31.0-37.0); MCV 85.9 fL (80.0-100.0); Mean Platelet Volume 8.6; Monocytes # (A) 0.3 k/uL (0-1.0); Monocytes % (A) 6 %; Neutrophils # (A) 4.2 k/uL (1.3-7.7); Neutrophils % (A) 71 %; Platelet Count 149 k/uL (150-450); RBC 2.72 m/uL (4.30-5.90); WBC 5.9 k/uL (3.8-10.6)
[2018-01-20 06:13] LABS: Anion Gap 3 mmol/L; Blood Urea Nitrogen 16 mg/dL (9-20); Calcium 7.2 mg/dL (8.4-10.2); Carbon Dioxide 35 mmol/L (22-30); Chloride 98 mmol/L (98-107); Glucose 80 mg/dL (74-99); Magnesium 1.7 mg/dL (1.6-2.3); Phosphorus 1.9 mg/dL (2.5-4.5); Sodium 136 mmol/L (137-145)
--- NOTE | 2018-01-20 07:47 | PN ---
PROGRESS NOTE DATE OF SERVICE: 01/19/2018 PRESENTING COMPLAINT: Tired. INTERVAL HISTORY: The patient admitted with hypotensive and cardiogenic shock, acute renal failure, latter of which has now resolved. Patient has moved out of the ICU, did tolerate some diet. Is on nasal cannula 3 L. Had a bowel movement. Did sit up on a chair, answering questions. Does have a bit of a congested cough. REVIEW OF SYSTEMS: Done for constitutional, cardiovascular, GI, pulmonary; relevant findings as above. CURRENT MEDICATIONS: Reviewed that include DuoNeb, p.o. Cordarone, IV digoxin, IV Lasix, IV Zosyn, Xarelto, Flomax. PHYSICAL EXAMINATION: Temperature 97.2, pulse 94, respiration 20, blood pressure 81/49, pulse ox 100% on 2 L. GENERAL APPEARANCE: Sitting up, awake, EYES: Pupils equal, conjunctivae are normal. HEENT: External appearance of nose and ear normal, oral cavity normal. NECK: JVD unable to assess. RESPIRATORY: Effort increased. lungs decreased breath sounds. CARDIOVASCULAR: Heart sounds irregular, minimal edema. ABDOMEN: Soft nontender. PSYCH: Awake, answering simple questions. INVESTIGATIONS: White count 6.4, hemoglobin 7, potassium 4, BUN 7, creatinine 0.87, phosphorus 1.8. Chest x-ray shows atelectasis. ASSESSMENT: 1. Hypotensive and cardiogenic shock, now recovered. 2. Persistent atrial fibrillation with rapid ventricular rate upon presentation. 3. Acute chronic obstructive pulmonary disease. exacerbation in a long-standing smoker. 4. Microcytic anemia from chronic alcoholism. 5. Chronic hypoxic respiratory failure from underlying chronic obstructive pulmonary disease. 6. Hyperlipidemia. 7. Essential hypertension. 8. Chronic nicotine dependence, patient is a cigarette smoker. 9. Acute on chronic congestive heart failure from systolic dysfunction, ejection fraction 20% to 25% from alcoholic cardiomyopathy. 10.Acute hypoxic respiratory failure, from above. 11.Thrombocytopenia, could be from alcoholism. 12.Hypophosphatemia. PLAN: Patient was switched over to p.o. Lasix, will give phosphate supplementation. PT, OT to see the patient. Prognosis guarded. Will follow. Patient's EF from September of this year is less than 20%. MMODL / IJN: [id number] /
[2018-01-20] MEDS: BUDESONIDE 1 MG/2 ML NEBU INHALATION SCH (08:00)
[2018-01-20] MEDS: IPRATROPIUM-ALBUTEROL 3 ML NEB INHALATION SCH ×4 (08:00→19:20)
--- NOTE | 2018-01-20 10:11 | P.PN ---
Subjective Patient is seen in follow for acute kidney injury, which has resolved. Currently off Levophed. He is nonoliguric. Oral intake is fair. Denies any active chest pain or shortness of breath. Midodrine was started on January 13. Patient had CAT scan of the abdomen and pelvis done on January 16 which revealed pleural effusions as well as ascites. Now on oral amiodarone and digoxin for A. fib. Transferred out of the ICU on January 19. Vital signs are stable. General: The patient appeared well nourished and normally developed. HEENT: Head exam is unremarkable. Neck is without jugular venous distension. LUNGS: Scattered rhonchi. Breath sounds decreased. HEART: Rate and Rhythm are regular. First and second heart sounds normal. No murmurs, rubs or gallops. ABDOMEN: Abdominal exam reveals normal bowel sounds. Non-tender and non- distended. No evidence of peritonitis. EXTREMITITES: No clubbing, cyanosis, or edema. Objective - Vital Signs Vital signs: Vital Signs Temp 97 F L 01/20/18 08:11 Pulse 98 01/20/18 08:15 Resp 20 01/20/18 08:15 BP 114/69 01/20/18 08:11 Pulse Ox 100 01/20/18 08:11 Intake & Output 01/19/18 01/20/18 01/20/18 18:59 06:59 18:59 Intake Total 1080 130 200 Output Total 2490 300 Balance -1410 -170 200 Weight 68.3 kg 65 kg Intake: IV 160 130 Piperacillin-Tazobactam 3 50 50 .375 gm In Dextrose/Water 1 50ml.bag @ 12.5 mls/hr IVPB Q8H [facility] Rx#: [id number] Sodium Chloride 0.9% 1, 110 80 000 ml @ 10 mls/hr IV . Q24H [facility] Rx#:[id number] Intake, IV Titration 200 Amount Magnesium Sulfate-D5w Pmx 100 1 gm In Dextrose/Water 1 100ml.bag @ 100 mls/hr IVPB Q1H [facility] Rx#: [id number] Sodium Phosphate 10 mmol 100 In Sodium Chloride 0.9% 100 ml @ 50 mls/hr IVPB Q2H [facility] Rx#:[id number] Oral 720 200 Output: Urine 2490 300 Other: Voiding Method Indwelling Catheter Urinal Urinal # Voids 1 - Labs CBC & Chem 7: 09/25/18 05:45 01/20/18 05:45 Labs: Abnormal Lab Results - Last 24 Hours (Table) 01/20/18 01/20/18 Range/Units 05:45 05:45 RBC 2.72 L (4.30-5.90) m/uL Hgb 7.0 L (13.0-17.5) gm/dL Hct 23.3 L (39.0-53.0) % MCHC 30.2 L (31.0-37.0) g/dL RDW 17.0 H (11.5-15.5) % Plt Count 149 L (150-450) k/uL Sodium 136 L (137-145) mmol/L Carbon Dioxide 35 H (22-30) mmol/L Calcium 7.2 L (8.4-10.2) mg/dL Phosphorus 1.9 L (2.5-4.5) mg/dL Assessment and Plan Plan: Assessment: 1. Nonoliguric acute kidney injury mostly prerenal improving with IV hydration. Creatinine was 6.99 on admission. Now near 1. 2. Hypotension currently off Levophed. Cortisol level normal. 3. Systolic CHF with ejection fraction of less than 20% with mild to moderate mitral and tricuspid regurgitation. 4. Septic shock. Source likely being UTI. 5. Anemia. Iron deficiency noted. Status post 3 doses of IV iron. 6. Hyponatremia, now hypervolemic, improved with diuresis. 7. Hypokalemia secondary to diuresis. Improved post replacement. 8. Hypomagnesemia from poor oral intake and diuresis. Improved post replacement. 9. Hypophosphatemia from poor oral intake. . 10. Fluid overload. Improving. 11. Atrial fibrillation maintained on oral amiodarone and digoxin. Plan: Maintain Lasix 40 mg IV once daily. Avoid nephrotoxins. Maintain midodrine. Continue to monitor renal function and urine output. Encourage oral intake. 1500 mL fluid restriction. Neutra-Phos added.
[2018-01-20] MEDS: AMOXIC-POT CLAV 875-125MG 1 EACH TAB PO SCH ×2 (10:56→20:53)
[2018-01-20] MEDS: DIGOXIN 250 MCG/ML 2 ML AMP IVP SCH (10:56)
[2018-01-20] MEDS: AMIODARONE 200 MG TAB PO SCH ×3 (10:56→20:59)
[2018-01-20] MEDS: DIPHENOX-ATROP 2.5-0.025 MG 1 EACH TAB PO SCH ×2 (10:57→20:55)
[2018-01-20] MEDS: FUROSEMIDE 10 MG/ML 4 ML VIAL IV SCH (10:58)
[2018-01-20] MEDS: MAGNESIUM OXIDE 400 MG TAB PO SCH ×3 (10:58→20:54)
[2018-01-20] MEDS: POTAS-SOD-PHOS 278-164-250 MG 1 EACH PACKET PO SCH ×3 (10:59→20:56)
[2018-01-20] MEDS: RIVAROXABAN 20 MG TAB PO SCH (10:59)
--- NOTE | 2018-01-20 11:26 | P.PN ---
Subjective Progress Note Date: 01/20/18 72-year-old male seen at the bedside resting in bed appears in no acute distress. Currently is denying abdominal pain when questioning. CAT scan of the abdomen pelvis done on January 16 showed ascites with pleural effusion. Patients being followed by cardiology for atrial fibrillation rate control Objective - Vital Signs Vital signs: Vital Signs Temp 97 F L 01/20/18 08:11 Pulse 98 01/20/18 08:15 Resp 20 01/20/18 08:15 BP 114/69 01/20/18 08:11 Pulse Ox 100 01/20/18 08:11 Intake & Output 01/19/18 01/20/18 01/20/18 18:59 06:59 18:59 Intake Total 1080 130 200 Output Total 2490 300 Balance -1410 -170 200 Weight 68.3 kg 65 kg Intake: IV 160 130 Piperacillin-Tazobactam 3 50 50 .375 gm In Dextrose/Water 1 50ml.bag @ 12.5 mls/hr IVPB Q8H [facility] Rx#: [id number] Sodium Chloride 0.9% 1, 110 80 000 ml @ 10 mls/hr IV . Q24H [facility] Rx#:[id number] Intake, IV Titration 200 Amount Magnesium Sulfate-D5w Pmx 100 1 gm In Dextrose/Water 1 100ml.bag @ 100 mls/hr IVPB Q1H [facility] Rx#: [id number] Sodium Phosphate 10 mmol 100 In Sodium Chloride 0.9% 100 ml @ 50 mls/hr IVPB Q2H [facility] Rx#:[id number] Oral 720 200 Output: Urine 2490 300 Other: Voiding Method Indwelling Catheter Urinal Urinal # Voids 1 - Exam Physical exam 72-year-old sitting up in bed denying dizziness lightheadedness chest pain or shortness of breath Lungs diminished at the bases otherwise clear Heart S1-S2 audible irregular Abdomen soft nondistended mild epigastric tenderness noted reports no nausea vomiting Extremities no edema noted - Labs CBC & Chem 7: 01/20/18 05:45 01/20/18 05:45 Labs: Abnormal Lab Results - Last 24 Hours (Table) 01/20/18 01/20/18 Range/Units 05:45 05:45 RBC 2.72 L (4.30-5.90) m/uL Hgb 7.0 L (13.0-17.5) gm/dL Hct 23.3 L (39.0-53.0) % MCHC 30.2 L (31.0-37.0) g/dL RDW 17.0 H (11.5-15.5) % Plt Count 149 L (150-450) k/uL Sodium 136 L (137-145) mmol/L Carbon Dioxide 35 H (22-30) mmol/L Calcium 7.2 L (8.4-10.2) mg/dL Phosphorus 1.9 L (2.5-4.5) mg/dL Assessment and Plan Assessment: Impression CT of the abdomen pelvis show moderate ascites no evidence of a bowel obstruction or perforation Chronic atrial fibrillation with episodes of RVR Chronic systolic heart failure with LV dysfunction EF 20 Abdominal pain with nondiagnostic workup Computed tomography scan abdomen pelvis on the report indicate new moderate ascites Plan No evidence of an acute surgical abdomen at this time We'll follow with you Continue conservative management Continue recommendations by cardiology defer to Continue recommendations by pulmonary service The above impression and plan of care have been discussed and directed by signing physician. Albina Lyman nurse practitioner acting as scribe for signing physician.
--- NOTE | 2018-01-20 12:00 | P.PN ---
Subjective Progress Note Date: 01/20/18 Principal diagnosis: Acute hypotension, hypovolemia, cardiogenic shock This is a 72-year-old white male with history of severe LV dysfunction, ejection fraction is supposedly 20%, COPD, chronic alcohol use, paroxysmal atrial fibrillation, patient was brought into the ER yesterday by EMS with altered mental status. 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 When EMS arrived on the scene , the patient was on the ground, unknown how long he has been on the floor. Looking back at the patient's history in the chart, patient was recently admitted to the hospital, and he was discharged home on 12/16/2015. His medical problems at that time included paroxysmal atrial fibrillation with RVR, COPD exacerbation, acute kidney injury, severe alcohol abuse, nicotine dependence, nonischemic cardiomyopathy with LV dysfunction, ejection fraction of 20%, chronic systolic congestive heart failure, hypertension, and previous history of CVA. The patient himself is a very poor historian. In the ER, the patient was noted to be hypotensive, no clear-cut evidence of sepsis, patient was given fluid boluses, did not improve much, hence a central line was placed by the ER physician, and he was placed on norepinephrine drip. Presently the patient remains on norepinephrine at 20 mcg/m. Blood pressure remains marginal, his hypotension was felt to be secondary to cardiogenic shock, possible hypovolemic shock. His creatinine on this admission was 6.99, and today it is 4.62. In the ER his systolic blood pressure was in the 50s upon arrival. Patient was also placed on antibiotics empirically although no clear-cut evidence of infection at this point. Patient was reevaluated today on 01/14/2018, remains in the intensive care unit, remains on 18 g of norepinephrine, blood pressure remains marginal. Patient received a total of 3-1/2 L of fluids, urine output has been excellent about 75 mL/h, his renal functioning has shown a significant improvement today. Creatinine is 1.89 today compared to 6.99 on admission. More fluids will be given today, we'll continue to titrate the norepinephrine down as tolerated maintaining a mean arterial pressure of 65 or higher. Seen by cardiology, and felt that the patient has severe cardiomyopathy and LV dysfunction. Chest x- ray showed right basilar atelectasis, left side is significantly improved over the last 24 hours. No more atelectasis or consolidation. All his labs were reviewed including CBC and basic metabolic profile. Potassium is a bit on the low side 3.3 being corrected as per protocol. His lactic acid was 1.7 on 917 cultures so far are negative. Patient remains on empiric antibiotics. He will have a modified barium swallow today. Reevaluated today on 01/15/2018, patient is looking and feeling much better, he is down to 2 g of norepinephrine, hence I will give her more fluids today, and I will likely discontinue norepinephrine. His renal functioning is significantly improved. Creatinine is 0.99 today. And he will likely come off the levo fed easily. I plan to transfer the patient out of the ICU to a monitor bed on selective patient is also on midodrine and his IV fluid is maintained at 70 mL per hour. Clinically the patient feels great, he is relatively asymptomatic. No chest x-ray was done today, modified barium swallow showed one episode of transient penetration with thin liquid barium, and there was some vallecular residual. Final report from Department of speech pathology is pending. Reevaluated today on 01/16/2018, patient remains in the ICU, required to go back on norepinephrine, presently on 2 g of norepinephrine. Developed atrial fibrillation with RVR this morning, cardiology was consulted. Patient was noted to have low magnesium, being corrected. And cardiology was consulted that yet to see the patient this morning. Presently his atrial fibrillation with RVR is ranging between 90-120. And blood pressure is marginal on 2 g of norepinephrine. Patient is known to have history of severe cardiomyopathy and LV dysfunction. Hemoglobin is about the same at 7.6. Basic metabolic profile is normal renal profile is normal. Serum cortisol done yesterday was normal. Reevaluated today on 01/17/2018, patient is now in atrial fibrillation with RVR, requiring amiodarone bolus and drip. Developed abdominal pain yesterday, seen by surgery on consultation, and his CT of the abdomen was nondiagnostic of surgical abdomen. He is off norepinephrine today, but he is on amiodarone, blood pressure seems to be stable, his mean arterial pressure is about 66. Again he is off norepinephrine. Renal functioning remains normal today although he came in with significant acute kidney injury which has resolved. Hemoglobin is holding at 7.6. Patient is surprisingly asymptomatic. But he is requiring to stay in the ICU mostly because of his hemodynamic issues and now atrial fibrillation with RVR on amiodarone. Reevaluated today on 01/18/2018, patient remains in the ICU, remains on amiodarone drip for atrial fibrillation with RVR, denies any shortness of breath , denies any abdominal pain, no nausea, no vomiting. Cardiology is still addressing his atrial fibrillation with RVR, seems to be poorly controlled at this point, rate is in the 140 range.he is presently off norepinephrine, chest x -ray is showing mostly atelectasis, and small bilateral tiny pleural effusions not large enough to consider thoracentesis.all labs were also reviewed, WBC count is 6.2 hemoglobin is 7.2 and his basic metabolic profile is noted to be relatively unremarkable except for low potassium of 3.5 be corrected his magnesium is being corrected and his phosphate is being corrected. BUN is 6 creatinine 0.87. On 01/19/2018 patient seen in follow-up in the intensive care unit. He is awake and alert, in no acute distress, pulse ox on 2 L per nasal cannula is 97- 100%. He is afebrile, he maintains in A. fib, and his heart rate is ranging anywhere from 104 to at 150 BPM. Levo fed has been off since yesterday. Maintenance IVs 0.9 normal saline at a rate of 20 ML per hour. Currently blood pressure is 96/57. Urine output is 35-50 ML per hour. Lung sounds are positive for diffuse wheezes and rhonchi, patient has a loose congested cough. Yesterday chest x-ray was reviewed and showed cardiomegaly, bibasilar atelectasis, and small bilateral pleural effusions. Labs have been reviewed, WBC 6.4, hemoglobin is 7.0, sodium is 132, potassium is 4.0, chloride is 97, B1 is 7, creatinine is 0.87. Patient remains on IV diuretics which have been cut back to once daily today. Received a dose of IV Lasix yesterday which seemed to help with the rate control. Will receive another dose today. Remains on oral amiodarone at 200 mg 3 times daily, on anticoagulation in the form of several toe, continues on Zosyn. Urine and blood cultures have been negative. Overall he has improved, stable, and can be considered for transfer out of the intensive care unit today with general medical floor with remote telemetry. The patient is seen again today 01/20/2018 in follow-up on the selective care unit. He is awake and alert in no acute distress. He is maintaining good O2 saturations up to 100% on 3 L/m per nasal cannula. She's been afebrile. Slightly tachycardic in atrial fibrillation, slightly tachypneic. Blood pressure stable. Blood culture reveals no growth. Urine culture reveals no growth. White count 5.9. Hemoglobin 7.0. Creatinine 0.84. He remains on DuoNeb inhalations, Pulmicort inhalations, Augmentin. He remains on IV diuretics. He's been initiated on Cordarone 200 mg 3 times a day along with IV digoxin. Still having issues with rate control. The patient has a history of noncompliance in the outpatient setting as well. Objective - Vital Signs Vital signs: Vital Signs Temp 97 F L 01/20/18 08:11 Pulse 102 H 01/20/18 11:29 Resp 20 01/20/18 11:29 BP 101/58 01/20/18 11:29 Pulse Ox 100 01/20/18 11:29 Intake & Output 01/19/18 01/20/18 01/20/18 18:59 06:59 18:59 Intake Total 1080 130 200 Output Total 2490 300 Balance -1410 -170 200 Weight 68.3 kg 65 kg Intake: IV 160 130 Piperacillin-Tazobactam 3 50 50 .375 gm In Dextrose/Water 1 50ml.bag @ 12.5 mls/hr IVPB Q8H [facility] Rx#: [id number] Sodium Chloride 0.9% 1, 110 80 000 ml @ 10 mls/hr IV . Q24H [facility] Rx#:[id number] Intake, IV Titration 200 Amount Magnesium Sulfate-D5w Pmx 100 1 gm In Dextrose/Water 1 100ml.bag @ 100 mls/hr IVPB Q1H [facility] Rx#: [id number] Sodium Phosphate 10 mmol 100 In Sodium Chloride 0.9% 100 ml @ 50 mls/hr IVPB Q2H [facility] Rx#:[id number] Oral 720 200 Output: Urine 2490 300 Other: Voiding Method Indwelling Catheter Urinal Urinal # Voids 1 - Exam GENERAL EXAM: Disheveled, unkept. Alert, comfortable in no apparent distress. HEAD: Normocephalic. EYES: Normal reaction of pupils, equal size. NOSE: Clear with pink turbinates. THROAT: No erythema or exudates. NECK: No masses, no JVD. CHEST: No chest wall deformity. LUNGS: Equal air entry with echoes in the posterior bases, end expiratory wheeze , diminished.. CVS: S1 and S2 normal with no audible murmur, irregular rhythm. ABDOMEN: No hepatosplenomegaly, normal bowel sounds, no guarding or rigidity. SPINE: No scoliosis or deformity SKIN: No rashes CENTRAL NERVOUS SYSTEM: No focal deficits, tone is normal in all 4 extremities. EXTREMITIES: There is no peripheral edema. No clubbing, no cyanosis. Peripheral pulses are intact. - Labs CBC & Chem 7: 01/20/18 05:45 01/20/18 05:45 Labs: Abnormal Lab Results - Last 24 Hours (Table) 01/20/18 01/20/18 Range/Units 05:45 05:45 RBC 2.72 L (4.30-5.90) m/uL Hgb 7.0 L (13.0-17.5) gm/dL Hct 23.3 L (39.0-53.0) % MCHC 30.2 L (31.0-37.0) g/dL RDW 17.0 H (11.5-15.5) % Plt Count 149 L (150-450) k/uL Sodium 136 L (137-145) mmol/L Carbon Dioxide 35 H (22-30) mmol/L Calcium 7.2 L (8.4-10.2) mg/dL Phosphorus 1.9 L (2.5-4.5) mg/dL Assessment and Plan Assessment: Impression: #1 Acute hypovolemic and cardiogenic shock with profound hypotension on presentation. Initially on norepinephrine and in the intensive care. Also poorly controlled atrial fibrillation initially and amiodarone drip currently on oral amiodarone. Improving. On the selective care unit now. #2 Acute on chronic atrial fibrillation with rapid ventricular response. Anticoagulated with Xarelto. #3 Acute on chronic systolic congestive heart failure with LV dysfunction and ejection fraction 20%. #4 Abdominal pain, workup was nondiagnostic not a surgical abdomen. #5 Acute kidney injury secondary to hypotension and dehydration, recovered. #6 History of noncompliance in the outpatient setting. #7 Chronic and ongoing tobacco dependence with suspected moderate to severe chronic obstructive pulmonary disease. Plan: The patient was seen and evaluated by Dr. Virk. He is currently stable from the pulmonary and critical care standpoint. We'll continue with his present treatment plan. Heart rate control remains an issue. Cardiology is on the case. Anti-coagulated with Xarelto. The patient has been educated regarding the importance of complete smoking cessation on multiple admissions. NicoDerm patch is in place. We will continue to follow and make further recommendations based on his clinical status. I, the cosigning physician, performed a history & physical examination of the patient. Lungs sounds have crackles in the bilateral posterior bases, end expiratory wheeze, diminished. Maintaining good O2 saturations in the 90s on 3 L/m per nasal cannula. I discussed the assessment and plan of care with my nurse practitioner, Janie Blair. I attest to the above note as dictated by her.
[2018-01-20] MEDS: MIDODRINE 5 MG TAB PO SCH (13:09)
[2018-01-20] MEDS: MULTIVITAMINS, THERA 1 EACH TAB PO SCH (14:14)
[2018-01-20] MEDS: FOLIC ACID 1 MG TAB PO SCH (14:14)
[2018-01-20] MEDS: FLUDROCORTISONE 0.1 MG TAB PO SCH (14:14)
[2018-01-20] MEDS: THIAMINE 100 MG TAB PO SCH (14:14)
[2018-01-20] MEDS: NICOTINE 14MG/24HR PATCH TRANSDERM SCH (14:23)
--- NOTE | 2018-01-20 14:38 | P.PN ---
Subjective Progress Note Date: 01/20/18 This is a 72-year-old white male with history of severe LV dysfunction, ejection fraction is supposedly 20%, COPD, chronic alcohol use, paroxysmal atrial fibrillation, patient was brought into the ER by EMS with altered mental status. 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 When EMS arrived on the scene, the patient was on the ground, unknown how long he has been on the floor. Looking back at the patient's history in the chart, patient was recently admitted to the hospital, and he was discharged home on 12/16/2015. His medical problems at that time included paroxysmal atrial fibrillation with RVR, COPD exacerbation, acute kidney injury, severe alcohol abuse, nicotine dependence, nonischemic cardiomyopathy with LV dysfunction, ejection fraction of 20%, chronic systolic congestive heart failure, hypertension, and previous history of CVA. The patient himself is a very poor historian. In the ER, the patient was noted to be hypotensive, no clear-cut evidence of sepsis, patient was given fluid boluses , did not improve much, hence a central line was placed by the ER physician, and he was placed on norepinephrine drip. his hypotension was felt to be secondary to cardiogenic shock, possible hypovolemic shock. His creatinine on this admission was 6.99, and today it is 0.8. Patient's EKG showed atrial fibrillation with a right bundle branch block pattern and T-wave abnormality in the lateral leads. At the time of my examination today, patient denies any chest discomfort or shortness of breath, he is in atrial fibrillation with a rapid ventricular response. We will put the patient on metoprolol 12-1/2 mg one tablet by mouth twice a day today, hold for systolic blood pressure 90 or lower. Continue amiodarone 200 mg 3 times a day. Continue Lanoxin today. Objective - Vital Signs Vital signs: Vital Signs Temp 98.1 F 01/20/18 12:20 Pulse 114 H 01/20/18 12:20 Resp 20 01/20/18 12:49 BP 110/60 01/20/18 12:20 Pulse Ox 100 01/20/18 12:20 Intake & Output 01/19/18 01/20/18 01/20/18 18:59 06:59 18:59 Intake Total 1080 130 200 Output Total 2490 300 750 Balance -1410 -170 -550 Weight 68.3 kg 65 kg Intake: IV 160 130 Piperacillin-Tazobactam 3 50 50 .375 gm In Dextrose/Water 1 50ml.bag @ 12.5 mls/hr IVPB Q8H [facility] Rx#: [id number] Sodium Chloride 0.9% 1, 110 80 000 ml @ 10 mls/hr IV . Q24H [facility] Rx#:[id number] Intake, IV Titration 200 Amount Magnesium Sulfate-D5w Pmx 100 1 gm In Dextrose/Water 1 100ml.bag @ 100 mls/hr IVPB Q1H [facility] Rx#: [id number] Sodium Phosphate 10 mmol 100 In Sodium Chloride 0.9% 100 ml @ 50 mls/hr IVPB Q2H [facility] Rx#:[id number] Oral 720 200 Output: Urine 2490 300 750 Other: Voiding Method Indwelling Catheter Urinal Toilet Urinal # Voids 1 1 - Exam GENERAL EXAM: Disheveled, unkept. Alert, comfortable in no apparent distress. HEAD: Normocephalic. EYES: Normal reaction of pupils, equal size. NOSE: Clear with pink turbinates. THROAT: No erythema or exudates. NECK: No masses, no JVD. CHEST: No chest wall deformity. LUNGS: Equal air entry with echoes in the posterior bases, end expiratory wheeze , diminished.. CVS: S1 and S2 irregularly irregular . ABDOMEN: No hepatosplenomegaly, normal bowel sounds, no guarding or rigidity. SPINE: No scoliosis or deformity SKIN: No rashes CENTRAL NERVOUS SYSTEM: No focal deficits, tone is normal in all 4 extremities. EXTREMITIES: There is no peripheral edema. No clubbing, no cyanosis. Peripheral pulses are intact. - Labs CBC & Chem 7: 01/20/18 05:45 01/20/18 05:45 Labs: Abnormal Lab Results - Last 24 Hours (Table) 01/20/18 01/20/18 Range/Units 05:45 05:45 RBC 2.72 L (4.30-5.90) m/uL Hgb 7.0 L (13.0-17.5) gm/dL Hct 23.3 L (39.0-53.0) % MCHC 30.2 L (31.0-37.0) g/dL RDW 17.0 H (11.5-15.5) % Plt Count 149 L (150-450) k/uL Sodium 136 L (137-145) mmol/L Carbon Dioxide 35 H (22-30) mmol/L Calcium 7.2 L (8.4-10.2) mg/dL Phosphorus 1.9 L (2.5-4.5) mg/dL Assessment and Plan Plan: Impression and Plan: #1 Acute hypovolemic and cardiogenic shock with profound hypotension on presentation. Initially on norepinephrine and in the intensive care. #2 Acute on chronic atrial fibrillation with rapid ventricular response. Anticoagulated with Xarelto. #3 Acute on chronic systolic congestive heart failure with LV dysfunction and ejection fraction 20%. #4 Abdominal pain, workup was nondiagnostic not a surgical abdomen. #5 Acute kidney injury secondary to hypotension and dehydration, recovered. #6 History of noncompliance in the outpatient setting. #7 Chronic and ongoing tobacco dependence with suspected moderate to severe chronic obstructive pulmonary disease. Plan: We will start the patient on 12-1/2 mg of metoprolol today twice a day, continue amiodarone and Lanoxin. If the patient's blood pressure is 90 or lower we will hold the Lopressor. We will continue to follow. DNP note has been reviewed, I agree with a documented findings and plan of care. Patient was seen and examined.
[2018-01-20] MEDS: SYMBICORT 160-4.5 MCG INHALER INHALATION SCH (19:20)
--- NOTE | 2018-01-20 20:53 | PN ---
PROGRESS NOTE DATE OF SERVICE: 01/20/2018 PRESENTING COMPLAINT: Tired. INTERVAL HISTORY: Patient was admitted with hypotensive and cardiogenic shock, acute renal failure, which has now resolved. On the medical floor, remains on nasal cannula. Tolerating his diet. He does feel weak and tired. Had been on IV Lasix. Congested cough. REVIEW OF SYSTEMS: Done for constitutional, cardiovascular, GI, pulmonary; relevant findings as above. CURRENT MEDICATIONS: Reviewed. They include: 1. DuoNeb. 2. Oral Cordarone. 3. Oral Augmentin. 4. Florinef. 5. Oral Lopressor. 6. Xarelto. 7. Neutra-Phos. PHYSICAL EXAMINATION: Temperature 96.5, pulse 93, respiration 16, blood pressure 110/69, pulse ox 97% on 3 L. GENERAL APPEARANCE: Sitting up, tired-appearing. EYES: Pupils equal. Conjunctivae pale. HEENT: External appearance of nose and ears normal. Oral cavity normal. NECK: JVD unable to assess. Mass not palpable. RESPIRATORY: Effort increased. LUNGS: Decreased breath sounds. CARDIOVASCULAR: Heart sounds irregular. Some edema. ABDOMEN: Soft, non-tender. Liver and spleen not palpable. PSYCHIATRY: Awake. Answering simple questions. INVESTIGATIONS: White count 5.9, hemoglobin 7, platelets 149, potassium 4, BUN 16, creatinine 0.84. ASSESSMENT: 1. Hypotensive and cardiogenic shock, now resolved. 2. Persistent atrial fibrillation with rapid ventricular rate upon presentation. 3. Acute chronic obstructive pulmonary disease exacerbation in a long-standing smoker. 4. Microcytic anemia from chronic alcoholism. 5. Chronic hypoxic respiratory failure from underlying chronic obstructive pulmonary disease. 6. Hyperlipidemia. 7. Essential hypertension. 8. Chronic nicotine dependence. Patient is a cigarette smoker. 9. Acute on chronic congestive heart failure from systolic dysfunction, ejection fraction 20% to 25%, from alcoholic cardiomyopathy. 10.Acute hypoxic respiratory failure from above. 11.Thrombocytopenia; could be from alcoholism. 12.Hypophosphatemia. PLAN: Continue current medication and treatment plan. Patient will probably need placement; is rather weak. Check patient is on scheduled phosphate supplements. Looking at possible discharge to the [facility]. MMODL / IJN: [id number] /
[2018-01-20] MEDS: TAMSULOSIN 0.4 MG CAP.ER.24H PO SCH (20:55)
[2018-01-20] MEDS: SODIUM CHLORIDE 0.9% 1,000 ML IV SCH (21:18)
[2018-01-20] MEDS: METOPROLOL TARTRATE 12.5 MG TAB PO SCH (22:31)
[2018-01-21] MEDS: IPRATROPIUM-ALBUTEROL 3 ML NEB INHALATION PRN (03:31)
[2018-01-21 07:30] LABS: Anisocytosis Slight; Basophils % (A) 0 %; Eosinophils # (A) 0.1 k/uL (0-0.7); Eosinophils % (A) 1 %; HCT 23.2 % (39.0-53.0); HGB 7.1 gm/dL (13.0-17.5); Hypochromasia Marked; Lymphocytes # (A) 0.9 k/uL (1.0-4.8); Lymphocytes % (A) 16 %; MCHC 30.4 g/dL (31.0-37.0); MCV 88.7 fL (80.0-100.0); Mean Platelet Volume 6.8; Monocytes # (A) 0.4 k/uL (0-1.0); Monocytes % (A) 7 %; Neutrophils # (A) 4.3 k/uL (1.3-7.7); Neutrophils % (A) 73 %; Platelet Count 178 k/uL (150-450); RBC 2.61 m/uL (4.30-5.90); WBC 5.9 k/uL (3.8-10.6)
[2018-01-21 07:57] LABS: Anion Gap 3 mmol/L; Blood Urea Nitrogen 17 mg/dL (9-20); Calcium 7.1 mg/dL (8.4-10.2); Carbon Dioxide 34 mmol/L (22-30); Chloride 100 mmol/L (98-107); Glucose 77 mg/dL (74-99); Magnesium 1.6 mg/dL (1.6-2.3); Phosphorus 1.5 mg/dL (2.5-4.5); Potassium 3.7 mmol/L (3.5-5.1); Sodium 137 mmol/L (137-145)
[2018-01-21] MEDS: SYMBICORT 160-4.5 MCG INHALER INHALATION SCH ×2 (08:27→20:18)
[2018-01-21] MEDS: IPRATROPIUM-ALBUTEROL 3 ML NEB INHALATION SCH ×4 (08:27→20:18)
[2018-01-21] MEDS: NICOTINE 14MG/24HR PATCH TRANSDERM SCH (09:19)
[2018-01-21] MEDS: METOPROLOL TARTRATE 12.5 MG TAB PO SCH ×2 (09:23→21:39)
[2018-01-21] MEDS ORDERED: Phosphorus Replacement Protoco 1 EACH MISC MISCELLANE PRN (09:39)
[2018-01-21] MEDS: FUROSEMIDE 10 MG/ML 4 ML VIAL IV SCH (09:42)
[2018-01-21] MEDS: DIPHENOX-ATROP 2.5-0.025 MG 1 EACH TAB PO SCH ×2 (09:43→21:39)
[2018-01-21] MEDS: predniSONE 10 MG TAB PO SCH (09:43)
[2018-01-21] MEDS: ACETAMINOPHEN TAB 500 MG TAB PO PRN (09:43)
[2018-01-21] MEDS: AMOXIC-POT CLAV 875-125MG 1 EACH TAB PO SCH ×2 (09:43→21:39)
[2018-01-21] MEDS: POTAS-SOD-PHOS 278-164-250 MG 1 EACH PACKET PO SCH ×3 (09:43→21:39)
[2018-01-21] MEDS: MAGNESIUM OXIDE 400 MG TAB PO SCH ×3 (09:44→21:39)
[2018-01-21] MEDS: AMIODARONE 200 MG TAB PO SCH ×3 (09:44→21:39)
[2018-01-21] MEDS: RIVAROXABAN 20 MG TAB PO SCH (09:44)
[2018-01-21] MEDS: FLUDROCORTISONE 0.1 MG TAB PO SCH (09:44)
[2018-01-21] MEDS: DIGOXIN 250 MCG/ML 2 ML AMP IVP SCH (09:44)
--- NOTE | 2018-01-21 09:48 | P.PN ---
Subjective Patient is seen in follow for acute kidney injury, which has resolved. Currently off Levophed. He is nonoliguric. Oral intake is fair. Denies any active chest pain or shortness of breath. Midodrine was started on January 13. Patient had CAT scan of the abdomen and pelvis done on January 16 which revealed pleural effusions as well as ascites. Now on oral amiodarone and digoxin for A. fib. Transferred out of the ICU on January 19. No active chest pain or sob. Vital signs are stable. General: The patient appeared well nourished and normally developed. HEENT: Head exam is unremarkable. Neck is without jugular venous distension. LUNGS: Scattered rhonchi. Breath sounds decreased. HEART: Rate and Rhythm are regular. First and second heart sounds normal. No murmurs, rubs or gallops. ABDOMEN: Abdominal exam reveals normal bowel sounds. Non-tender and non- distended. No evidence of peritonitis. EXTREMITITES: No clubbing, cyanosis, or edema. Objective - Vital Signs Vital signs: Vital Signs Temp 98.6 F 01/21/18 08:00 Pulse 96 01/21/18 08:41 Resp 20 01/21/18 08:00 BP 92/54 01/21/18 08:00 Pulse Ox 100 01/21/18 08:00 Intake & Output 01/20/18 01/21/18 01/21/18 18:59 06:59 18:59 Intake Total 318 160 Output Total 850 Balance -532 160 Weight 63.6 kg Intake: IV 160 Sodium Chloride 0.9% 1, 160 000 ml @ 10 mls/hr IV . Q24H [facility] Rx#:[id number] Oral 318 Output: Urine 850 Other: Voiding Method Toilet Bedside Commode Bedside Commode Urinal Urinal Urinal # Voids 1 - Labs CBC & Chem 7: 01/21/18 06:38 01/21/18 06:38 Labs: Abnormal Lab Results - Last 24 Hours (Table) 01/21/18 01/21/18 Range/Units 06:38 06:38 RBC 2.61 L (4.30-5.90) m/uL Hgb 7.1 L (13.0-17.5) gm/dL Hct 23.2 L (39.0-53.0) % MCHC 30.4 L (31.0-37.0) g/dL RDW 17.0 H (11.5-15.5) % Lymphocytes # 0.9 L (1.0-4.8) k/uL Carbon Dioxide 34 H (22-30) mmol/L Calcium 7.1 L (8.4-10.2) mg/dL Phosphorus 1.5 L (2.5-4.5) mg/dL Assessment and Plan Plan: Assessment: 1. Nonoliguric acute kidney injury mostly prerenal improving with IV hydration. Creatinine was 6.99 on admission. Now near 1. 2. Hypotension currently off Levophed. Cortisol level normal. 3. Systolic CHF with ejection fraction of less than 20% with mild to moderate mitral and tricuspid regurgitation. 4. Septic shock. Source likely being UTI. 5. Anemia. Iron deficiency noted. Status post 3 doses of IV iron. 6. Hyponatremia, now hypervolemic, improved with diuresis. 7. Hypokalemia secondary to diuresis. Improved post replacement. 8. Hypomagnesemia from poor oral intake and diuresis. 9. Hypophosphatemia from poor oral intake. . 10. Fluid overload. Improving. 11. Atrial fibrillation maintained on oral amiodarone and digoxin. Plan: Maintain Lasix 40 mg IV once daily. Avoid nephrotoxins. Maintain midodrine. Continue to monitor renal function and urine output. Encourage oral intake. 1500 mL fluid restriction. Neutra-Phos added. 20 mmol K-phos IV today. 2 g IV magnesium sulfate today. Maintain magox.
[2018-01-21] MEDS: MAGNESIUM SULFATE-D5W PMX 1 GM in DEXTROSE/WATER 1 100ML.BAG IVPB SCH ×2 (11:15→12:47)
--- NOTE | 2018-01-21 11:33 | P.PN ---
Subjective Progress Note Date: 01/21/18 Principal diagnosis: Acute hypotension, hypovolemia, cardiogenic shock This is a 72-year-old white male with history of severe LV dysfunction, ejection fraction is supposedly 20%, COPD, chronic alcohol use, paroxysmal atrial fibrillation, patient was brought into the ER yesterday by EMS with altered mental status. 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 When EMS arrived on the scene , the patient was on the ground, unknown how long he has been on the floor. Looking back at the patient's history in the chart, patient was recently admitted to the hospital, and he was discharged home on 12/16/2015. His medical problems at that time included paroxysmal atrial fibrillation with RVR, COPD exacerbation, acute kidney injury, severe alcohol abuse, nicotine dependence, nonischemic cardiomyopathy with LV dysfunction, ejection fraction of 20%, chronic systolic congestive heart failure, hypertension, and previous history of CVA. The patient himself is a very poor historian. In the ER, the patient was noted to be hypotensive, no clear-cut evidence of sepsis, patient was given fluid boluses, did not improve much, hence a central line was placed by the ER physician, and he was placed on norepinephrine drip. Presently the patient remains on norepinephrine at 20 mcg/m. Blood pressure remains marginal, his hypotension was felt to be secondary to cardiogenic shock, possible hypovolemic shock. His creatinine on this admission was 6.99, and today it is 4.62. In the ER his systolic blood pressure was in the 50s upon arrival. Patient was also placed on antibiotics empirically although no clear-cut evidence of infection at this point. Patient was reevaluated today on 01/14/2018, remains in the intensive care unit, remains on 18 g of norepinephrine, blood pressure remains marginal. Patient received a total of 3-1/2 L of fluids, urine output has been excellent about 75 mL/h, his renal functioning has shown a significant improvement today. Creatinine is 1.89 today compared to 6.99 on admission. More fluids will be given today, we'll continue to titrate the norepinephrine down as tolerated maintaining a mean arterial pressure of 65 or higher. Seen by cardiology, and felt that the patient has severe cardiomyopathy and LV dysfunction. Chest x- ray showed right basilar atelectasis, left side is significantly improved over the last 24 hours. No more atelectasis or consolidation. All his labs were reviewed including CBC and basic metabolic profile. Potassium is a bit on the low side 3.3 being corrected as per protocol. His lactic acid was 1.7 on 917 cultures so far are negative. Patient remains on empiric antibiotics. He will have a modified barium swallow today. Reevaluated today on 01/15/2018, patient is looking and feeling much better, he is down to 2 g of norepinephrine, hence I will give her more fluids today, and I will likely discontinue norepinephrine. His renal functioning is significantly improved. Creatinine is 0.99 today. And he will likely come off the levo fed easily. I plan to transfer the patient out of the ICU to a monitor bed on selective patient is also on midodrine and his IV fluid is maintained at 70 mL per hour. Clinically the patient feels great, he is relatively asymptomatic. No chest x-ray was done today, modified barium swallow showed one episode of transient penetration with thin liquid barium, and there was some vallecular residual. Final report from Department of speech pathology is pending. Reevaluated today on 01/16/2018, patient remains in the ICU, required to go back on norepinephrine, presently on 2 g of norepinephrine. Developed atrial fibrillation with RVR this morning, cardiology was consulted. Patient was noted to have low magnesium, being corrected. And cardiology was consulted that yet to see the patient this morning. Presently his atrial fibrillation with RVR is ranging between 90-120. And blood pressure is marginal on 2 g of norepinephrine. Patient is known to have history of severe cardiomyopathy and LV dysfunction. Hemoglobin is about the same at 7.6. Basic metabolic profile is normal renal profile is normal. Serum cortisol done yesterday was normal. Reevaluated today on 01/17/2018, patient is now in atrial fibrillation with RVR, requiring amiodarone bolus and drip. Developed abdominal pain yesterday, seen by surgery on consultation, and his CT of the abdomen was nondiagnostic of surgical abdomen. He is off norepinephrine today, but he is on amiodarone, blood pressure seems to be stable, his mean arterial pressure is about 66. Again he is off norepinephrine. Renal functioning remains normal today although he came in with significant acute kidney injury which has resolved. Hemoglobin is holding at 7.6. Patient is surprisingly asymptomatic. But he is requiring to stay in the ICU mostly because of his hemodynamic issues and now atrial fibrillation with RVR on amiodarone. Reevaluated today on 01/18/2018, patient remains in the ICU, remains on amiodarone drip for atrial fibrillation with RVR, denies any shortness of breath , denies any abdominal pain, no nausea, no vomiting. Cardiology is still addressing his atrial fibrillation with RVR, seems to be poorly controlled at this point, rate is in the 140 range.he is presently off norepinephrine, chest x -ray is showing mostly atelectasis, and small bilateral tiny pleural effusions not large enough to consider thoracentesis.all labs were also reviewed, WBC count is 6.2 hemoglobin is 7.2 and his basic metabolic profile is noted to be relatively unremarkable except for low potassium of 3.5 be corrected his magnesium is being corrected and his phosphate is being corrected. BUN is 6 creatinine 0.87. On 01/19/2018 patient seen in follow-up in the intensive care unit. He is awake and alert, in no acute distress, pulse ox on 2 L per nasal cannula is 97- 100%. He is afebrile, he maintains in A. fib, and his heart rate is ranging anywhere from 104 to at 150 BPM. Levo fed has been off since yesterday. Maintenance IVs 0.9 normal saline at a rate of 20 ML per hour. Currently blood pressure is 96/57. Urine output is 35-50 ML per hour. Lung sounds are positive for diffuse wheezes and rhonchi, patient has a loose congested cough. Yesterday chest x-ray was reviewed and showed cardiomegaly, bibasilar atelectasis, and small bilateral pleural effusions. Labs have been reviewed, WBC 6.4, hemoglobin is 7.0, sodium is 132, potassium is 4.0, chloride is 97, B1 is 7, creatinine is 0.87. Patient remains on IV diuretics which have been cut back to once daily today. Received a dose of IV Lasix yesterday which seemed to help with the rate control. Will receive another dose today. Remains on oral amiodarone at 200 mg 3 times daily, on anticoagulation in the form of several toe, continues on Zosyn. Urine and blood cultures have been negative. Overall he has improved, stable, and can be considered for transfer out of the intensive care unit today with general medical floor with remote telemetry. The patient is seen again today 01/20/2018 in follow-up on the selective care unit. He is awake and alert in no acute distress. He is maintaining good O2 saturations up to 100% on 3 L/m per nasal cannula. She's been afebrile. Slightly tachycardic in atrial fibrillation, slightly tachypneic. Blood pressure stable. Blood culture reveals no growth. Urine culture reveals no growth. White count 5.9. Hemoglobin 7.0. Creatinine 0.84. He remains on DuoNeb inhalations, Pulmicort inhalations, Augmentin. He remains on IV diuretics. He's been initiated on Cordarone 200 mg 3 times a day along with IV digoxin. Still having issues with rate control. The patient has a history of noncompliance in the outpatient setting as well. The patient is seen again today 01/21/2018 in follow-up on the selective care unit. He is currently resting comfortably in bed. He is awake and alert in no acute distress. He denies any worsening shortness of breath, cough or congestion. Maintaining good O2 saturations in the 90s on 3 L/m per nasal cannula. He is afebrile. White count 5.9. Hemoglobin 7.1. Creatinine 0.87. He remains on Augmentin. Anticoagulated with Xarelto. The plan is for discharge to an ECF. Objective - Vital Signs Vital signs: Vital Signs Temp 98.6 F 01/21/18 08:00 Pulse 96 01/21/18 08:41 Resp 20 01/21/18 08:00 BP 92/54 01/21/18 08:00 Pulse Ox 100 01/21/18 08:00 Intake & Output 01/20/18 01/21/18 01/21/18 18:59 06:59 18:59 Intake Total 318 160 Output Total 850 Balance -532 160 Weight 63.6 kg Intake: IV 160 Sodium Chloride 0.9% 1, 160 000 ml @ 10 mls/hr IV . Q24H [facility] Rx#:[id number] Oral 318 Output: Urine 850 Other: Voiding Method Toilet Bedside Commode Bedside Commode Urinal Urinal Urinal # Voids 1 - Exam GENERAL EXAM: Alert, comfortable in no apparent distress. HEAD: Normocephalic. EYES: Normal reaction of pupils, equal size. NOSE: Clear with pink turbinates. THROAT: No erythema or exudates. NECK: No masses, no JVD. CHEST: No chest wall deformity. LUNGS: Equal air entry with echoes in the posterior bases, end expiratory wheeze , diminished.. CVS: S1 and S2 normal with no audible murmur, irregular rhythm. ABDOMEN: No hepatosplenomegaly, normal bowel sounds, no guarding or rigidity. SPINE: No scoliosis or deformity SKIN: No rashes CENTRAL NERVOUS SYSTEM: No focal deficits, tone is normal in all 4 extremities. EXTREMITIES: There is no peripheral edema. No clubbing, no cyanosis. Peripheral pulses are intact. - Labs CBC & Chem 7: 01/21/18 06:38 01/21/18 06:38 Labs: Abnormal Lab Results - Last 24 Hours (Table) 01/21/18 01/21/18 Range/Units 06:38 06:38 RBC 2.61 L (4.30-5.90) m/uL Hgb 7.1 L (13.0-17.5) gm/dL Hct 23.2 L (39.0-53.0) % MCHC 30.4 L (31.0-37.0) g/dL RDW 17.0 H (11.5-15.5) % Lymphocytes # 0.9 L (1.0-4.8) k/uL Carbon Dioxide 34 H (22-30) mmol/L Calcium 7.1 L (8.4-10.2) mg/dL Phosphorus 1.5 L (2.5-4.5) mg/dL Assessment and Plan Assessment: Impression: #1 Acute hypovolemic and cardiogenic shock with profound hypotension on presentation. Recovered. #2 Acute on chronic atrial fibrillation with rapid ventricular response. On amiodarone 200 mg by mouth 3 times a day. Anticoagulated with Xarelto. #3 Acute on chronic systolic congestive heart failure with LV dysfunction and ejection fraction 20%. #4 Abdominal pain, workup was nondiagnostic not a surgical abdomen. #5 Acute kidney injury secondary to hypotension and dehydration, recovered. #6 History of noncompliance in the outpatient setting. #7 Chronic and ongoing tobacco dependence with suspected moderate to severe chronic obstructive pulmonary disease. Plan: The patient was seen and evaluated by Dr. Virk. He is currently stable from the pulmonary standpoint. The patient has improved clinically. The plan is for discharge to an extended care facility for further subacute rehabilitation. He remains on Augmentin, Symbicort, DuoNeb's. The patient has been educated regarding the importance of complete smoking cessation on multiple admissions. NicoDerm patch is in place. We will continue to follow and make further recommendations based on his clinical status. I, the cosigning physician, performed a history & physical examination of the patient. Lungs sounds have crackles in the bilateral posterior bases, end expiratory wheeze, diminished. Maintaining good O2 saturations in the 90s on 3 L/m per nasal cannula. I discussed the assessment and plan of care with my nurse practitioner, Janie Blair. I attest to the above note as dictated by her.
--- NOTE | 2018-01-21 13:36 | CDI ---
Last Revision, March 2017 Documentation Clarification Form Date: 01/21/2018 1:21:39 PM From: Marium SmythBatistaSANTI hebert, CCDS Admit Date: 01/12/2018 6:58:00 PM Patient Name: Juan Carlos Hills Visit Number: [id number] Discharge Date: ATTENTION: The Clinical Documentation Specialists (CDI) and [facility] Coding Staff appreciate your assistance in clarifying documentation. Please respond to the clarification below the line at the bottom and electronically sign. The CDI & [facility] Coding staff will review the response and follow-up if needed. Please note: Queries are made part of the Legal Health Record. If you have any questions, please contact the author of this message via ITS. Dr. Martin Norton MD: Per the History & Physical: possible Sepsis. Per your progress notes, you have documented septic shock. Source likely UTI. Per the attending & pulmonary/critical care notes: no clear evidence of sepsis. History/Risk Factors: Atrial fibrillation, CHF, COPD, CVA, Hypertension, Hyperlipidemia & possible CKD with unknown baseline. Clinical Indicators: 72 yo male who lives alone, fell & was unable to get up for several hours. Found to be severely hypotensive & IV fluid bolus was given, had elevated WBC & Creatinine is 6.9, indicating severe acute renal failure. VS: T 97*, P 91, R 18-24, BP 79/38*, PO 97 4Lnc. BMI: 19.0* LAB: WBC 13.7^, Neut (76) Lactic acid: (1.7) Blood cultures: neg. Urine cultures: neg. Treatment: IV fluid bolus x2, IV Norepinephrine, IV Zosyn, IV Vancomycin, IV Tylenol, Atrovent INH As the attending & In your professional opinion, please clarify if you agree with the attending physician regarding the diagnosis of sepsis and indicate if you feel it was present on admission if ruled in: Sepsis ruled out Sepsis ruled in With or Without Severe Sepsis With or without Septic Shock Other, please specify Unable to determine If ruled in: Present on Admission: Yes or No __ possible sepsis from UTI with septic shock, POA MTDD
--- NOTE | 2018-01-21 13:45 | XR ---
EXAMINATION TYPE: XR chest 1V DATE OF EXAM: 01/21/2018 COMPARISON: 01/18/2018 HISTORY: 72-year-old male CHF TECHNIQUE: Single frontal view of the chest is obtained. FINDINGS: Partially visualized reverse right shoulder arthroplasty. Heart normal size. Right basilar opacity is improving. Residual left basilar opacity remains, also improving. Upper lungs are relatively clear. IMPRESSION: Improving CHF changes. Improving aeration of the right base. There is a trace residual left pleural e ffusion with adjacent atelectasis and/or consolidation.
[2018-01-21] MEDS: MULTIVITAMINS, THERA 1 EACH TAB PO SCH (13:57)
[2018-01-21] MEDS: THIAMINE 100 MG TAB PO SCH (13:57)
[2018-01-21] MEDS: POTASSIUM PHOSPHATE 10 MMOL in SODIUM CHLORIDE 0.9% 250 ML IV SCH ×2 (13:57→16:59)
[2018-01-21] MEDS: FOLIC ACID 1 MG TAB PO SCH (13:57)
[2018-01-21 16:15] VITALS: RESP 18
[2018-01-21] MEDS: TAMSULOSIN 0.4 MG CAP.ER.24H PO SCH (21:39)
--- NOTE | 2018-01-21 22:30 | PN ---
PROGRESS NOTE DATE OF SERVICE: 01/21/2018 PRESENTING COMPLAINT: Tired. INTERVAL HISTORY: Patient was admitted with hypotensive and cardiogenic shock, acute renal failure, which is now resolved. Tolerating a diet. Does feel tired. Looking into going to an ECF. Patient is being followed by Cardiology and Pulmonary. He has been on IV Lasix. He still has a bit of a cough. REVIEW OF SYSTEMS: Done for constitutional, cardiovascular, GI, pulmonary; relevant findings as above. CURRENT MEDICATIONS: Reviewed. They include: 1. Oral Augmentin. 2. IV digoxin 125. 3. IV Lasix 40 mg a day. 4. Florinef. 5. Lopressor 12.5 p.o. b.i.d. 6. Neutra-Phos. PHYSICAL EXAMINATION: Temperature 97.5, pulse 86, respiration 18, blood pressure 100/49, pulse ox 100% on room air. GENERAL APPEARANCE: Sitting up. Tired-appearing. Awake. EYES: Pupils equal. Conjunctivae pale. HEENT: External appearance of nose and ears normal. Oral cavity normal. NECK: JVD unable to assess. Mass not palpable. RESPIRATORY: Effort increased. LUNGS: Decreased breath sounds. CARDIOVASCULAR: First and second sounds normal. Minimal edema. ABDOMEN: Soft, non-tender. Liver and spleen not palpable. PSYCHIATRY: Awake, answering questions appropriately. INVESTIGATIONS: White count 5.9, hemoglobin 7.1, potassium 3.7, BUN 17, creatinine 0.87. ASSESSMENT: 1. Hypotensive and cardiogenic shock, now resolved. 2. Persistent atrial fibrillation with rapid ventricular rate on presentation. 3. Acute chronic obstructive pulmonary disease exacerbation in a long-standing smoker. 4. Microcytic anemia from chronic alcoholism. 5. Chronic hypoxic respiratory failure from underlying chronic obstructive pulmonary disease. 6. Hyperlipidemia. 7. Relative hypotension. 8. Chronic nicotine dependence. Patient is a cigarette smoker. 9. Acute on chronic congestive heart failure exacerbation from systolic dysfunction, ejection fraction 20% to 25%, from alcoholic cardiomyopathy, now stabilized. Chest x-ray greatly improved. 10.Acute hypoxic respiratory failure from above. 11.Thrombocytopenia, probably from alcoholism. 12.Hypophosphatemia. PLAN: The patient is running blood pressure on the lower side. Lopressor was held earlier. Hemoglobin is hovering around 7.1. Given his cardiac history, probably a unit of blood would help. 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 MMODL / IJN: [id number] /
[2018-01-22] MEDS: IPRATROPIUM-ALBUTEROL 3 ML NEB INHALATION PRN (01:18)
[2018-01-22] MEDS: SODIUM CHLORIDE 0.9% 1,000 ML IV SCH (05:44)
[2018-01-22] MEDS: IPRATROPIUM-ALBUTEROL 3 ML NEB INHALATION SCH ×3 (08:24→15:48)
[2018-01-22 08:25] LABS: Anisocytosis Slight; Basophils % (A) 0 %; Eosinophils % (A) 1 %; HCT 25.2 % (39.0-53.0); HGB 7.7 gm/dL (13.0-17.5); Hypochromasia Marked; Lymphocytes % (A) 16 %; MCH 27.3 pg (25.0-35.0); MCHC 30.7 g/dL (31.0-37.0); MCV 88.8 fL (80.0-100.0); Mean Platelet Volume 7.5; Monocytes # (A) 0.4 k/uL (0-1.0); Monocytes % (A) 6 %; Neutrophils # (A) 4.9 k/uL (1.3-7.7); Neutrophils % (A) 76 %; Platelet Count 203 k/uL (150-450); RBC 2.84 m/uL (4.30-5.90); RDW 16.9 % (11.5-15.5); WBC 6.4 k/uL (3.8-10.6)
[2018-01-22] MEDS: SYMBICORT 160-4.5 MCG INHALER INHALATION SCH (08:25)
[2018-01-22 08:45] LABS: Anion Gap 2 mmol/L; Blood Urea Nitrogen 17 mg/dL (9-20); Calcium 7.4 mg/dL (8.4-10.2); Carbon Dioxide 34 mmol/L (22-30); Chloride 100 mmol/L (98-107); Glucose 90 mg/dL (74-99); Magnesium 1.8 mg/dL (1.6-2.3); Phosphorus 2.1 mg/dL (2.5-4.5); Potassium 3.8 mmol/L (3.5-5.1); Sodium 136 mmol/L (137-145)
[2018-01-22] MEDS ORDERED: FUROSEMIDE 40 MG TAB PO SCH (09:00)
[2018-01-22] MEDS ORDERED: DIGOXIN 125 MCG TAB PO SCH (09:00)
[2018-01-22] MEDS: NICOTINE 14MG/24HR PATCH TRANSDERM SCH (09:02)
[2018-01-22] MEDS: AMOXIC-POT CLAV 875-125MG 1 EACH TAB PO SCH (09:05)
[2018-01-22] MEDS: MULTIVITAMINS, THERA 1 EACH TAB PO SCH (09:05)
[2018-01-22] MEDS: DIPHENOX-ATROP 2.5-0.025 MG 1 EACH TAB PO SCH (09:05)
[2018-01-22] MEDS: RIVAROXABAN 20 MG TAB PO SCH (09:05)
[2018-01-22] MEDS: METOPROLOL TARTRATE 12.5 MG TAB PO SCH (09:05)
[2018-01-22] MEDS: predniSONE 10 MG TAB PO SCH (09:05)
[2018-01-22] MEDS: THIAMINE 100 MG TAB PO SCH (09:05)
[2018-01-22] MEDS: FLUDROCORTISONE 0.1 MG TAB PO SCH (09:05)
[2018-01-22] MEDS: AMIODARONE 200 MG TAB PO SCH ×2 (09:05→16:43)
[2018-01-22] MEDS: FOLIC ACID 1 MG TAB PO SCH (09:06)
[2018-01-22] MEDS: MAGNESIUM OXIDE 400 MG TAB PO SCH ×2 (09:06→16:44)
[2018-01-22] MEDS: POTAS-SOD-PHOS 278-164-250 MG 1 EACH PACKET PO SCH ×2 (09:06→16:44)
--- NOTE | 2018-01-22 09:48 | P.PN ---
Subjective Patient is seen in follow for acute kidney injury, which has resolved. Currently off Levophed. He is nonoliguric. Oral intake is fair. Denies any active chest pain or shortness of breath. Midodrine was started on January 13. Patient had CAT scan of the abdomen and pelvis done on January 16 which revealed pleural effusions as well as ascites. Now on oral amiodarone and digoxin for A. fib. Transferred out of the ICU on January 19. No active chest pain or sob. Vital signs are stable. General: The patient appeared well nourished and normally developed. HEENT: Head exam is unremarkable. Neck is without jugular venous distension. LUNGS: Scattered rhonchi. Breath sounds decreased. HEART: Rate and Rhythm are regular. First and second heart sounds normal. No murmurs, rubs or gallops. ABDOMEN: Abdominal exam reveals normal bowel sounds. Non-tender and non- distended. No evidence of peritonitis. EXTREMITITES: No clubbing, cyanosis, or edema. Objective - Vital Signs Vital signs: Vital Signs Temp 96.8 F L 01/22/18 09:12 Pulse 97 01/22/18 09:12 Resp 18 01/22/18 09:12 BP 100/56 01/22/18 09:12 Pulse Ox 98 01/22/18 09:12 Intake & Output 01/21/18 01/22/18 01/22/18 18:59 06:59 18:59 Intake Total 380 310 180 Output Total 400 750 100 Balance -20 -440 80 Weight 64.9 kg Intake: Oral 380 180 Blood Product 310 Rc As-3 Unit 310 [id number] Output: Urine 400 750 100 Other: Voiding Method Bedside Commode Urinal Urinal Urinal # Voids 1 1 - Labs CBC & Chem 7: 01/22/18 08:04 01/22/18 08:04 Labs: Abnormal Lab Results - Last 24 Hours (Table) 01/21/18 01/22/18 01/22/18 Range/Units 22:31 08:04 08:04 RBC 2.84 L (4.30-5.90) m/uL Hgb 7.7 L (13.0-17.5) gm/dL Hct 25.2 L (39.0-53.0) % MCHC 30.7 L (31.0-37.0) g/dL RDW 16.9 H (11.5-15.5) % Sodium 136 L (137-145) mmol/L Carbon Dioxide 34 H (22-30) mmol/L Calcium 7.4 L (8.4-10.2) mg/dL Phosphorus 2.1 L (2.5-4.5) mg/dL Crossmatch See Detail Microbiology - Last 24 Hours (Table) 01/21/18 02:23 Gram Stain - Preliminary Sputum Assessment and Plan Plan: Assessment: 1. Nonoliguric acute kidney injury mostly prerenal improved with IV hydration. Creatinine was 6.99 on admission. Now near 1. 2. Hypotension currently off Levophed. Cortisol level normal. 3. Systolic CHF with ejection fraction of less than 20% with mild to moderate mitral and tricuspid regurgitation. 4. Anemia. Iron deficiency noted. Status post 3 doses of IV iron. 5. Hyponatremia, now hypervolemic, improved with diuresis. 6. Hypokalemia secondary to diuresis. Improved post replacement. 7. Hypomagnesemia from poor oral intake and diuresis. 8. Hypophosphatemia from poor oral intake. . 9. Fluid overload. Improving. 10. Atrial fibrillation maintained on oral amiodarone and digoxin. Plan: Maintain Lasix 40 mg IV once daily. Avoid nephrotoxins. Maintain midodrine. Continue to monitor renal function and urine output. Encourage oral intake. 1500 mL fluid restriction. Neutra-Phos added. Repeat 20 mmol K-phos IV today. Maintain magox.
[2018-01-22] MEDS: POTASSIUM PHOSPHATE 10 MMOL in SODIUM CHLORIDE 0.9% 250 ML IV SCH ×2 (10:33→12:35)
--- NOTE | 2018-01-22 11:51 | P.PN ---
Subjective Progress Note Date: 01/22/18 Principal diagnosis: Acute hypotension, hypovolemia, cardiogenic shock This is a 72-year-old white male with history of severe LV dysfunction, ejection fraction is supposedly 20%, COPD, chronic alcohol use, paroxysmal atrial fibrillation, patient was brought into the ER yesterday by EMS with altered mental status. 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 When EMS arrived on the scene , the patient was on the ground, unknown how long he has been on the floor. Looking back at the patient's history in the chart, patient was recently admitted to the hospital, and he was discharged home on 12/16/2015. His medical problems at that time included paroxysmal atrial fibrillation with RVR, COPD exacerbation, acute kidney injury, severe alcohol abuse, nicotine dependence, nonischemic cardiomyopathy with LV dysfunction, ejection fraction of 20%, chronic systolic congestive heart failure, hypertension, and previous history of CVA. The patient himself is a very poor historian. In the ER, the patient was noted to be hypotensive, no clear-cut evidence of sepsis, patient was given fluid boluses, did not improve much, hence a central line was placed by the ER physician, and he was placed on norepinephrine drip. Presently the patient remains on norepinephrine at 20 mcg/m. Blood pressure remains marginal, his hypotension was felt to be secondary to cardiogenic shock, possible hypovolemic shock. His creatinine on this admission was 6.99, and today it is 4.62. In the ER his systolic blood pressure was in the 50s upon arrival. Patient was also placed on antibiotics empirically although no clear-cut evidence of infection at this point. Patient was reevaluated today on 01/14/2018, remains in the intensive care unit, remains on 18 g of norepinephrine, blood pressure remains marginal. Patient received a total of 3-1/2 L of fluids, urine output has been excellent about 75 mL/h, his renal functioning has shown a significant improvement today. Creatinine is 1.89 today compared to 6.99 on admission. More fluids will be given today, we'll continue to titrate the norepinephrine down as tolerated maintaining a mean arterial pressure of 65 or higher. Seen by cardiology, and felt that the patient has severe cardiomyopathy and LV dysfunction. Chest x- ray showed right basilar atelectasis, left side is significantly improved over the last 24 hours. No more atelectasis or consolidation. All his labs were reviewed including CBC and basic metabolic profile. Potassium is a bit on the low side 3.3 being corrected as per protocol. His lactic acid was 1.7 on 917 cultures so far are negative. Patient remains on empiric antibiotics. He will have a modified barium swallow today. Reevaluated today on 01/15/2018, patient is looking and feeling much better, he is down to 2 g of norepinephrine, hence I will give her more fluids today, and I will likely discontinue norepinephrine. His renal functioning is significantly improved. Creatinine is 0.99 today. And he will likely come off the levo fed easily. I plan to transfer the patient out of the ICU to a monitor bed on selective patient is also on midodrine and his IV fluid is maintained at 70 mL per hour. Clinically the patient feels great, he is relatively asymptomatic. No chest x-ray was done today, modified barium swallow showed one episode of transient penetration with thin liquid barium, and there was some vallecular residual. Final report from Department of speech pathology is pending. Reevaluated today on 01/16/2018, patient remains in the ICU, required to go back on norepinephrine, presently on 2 g of norepinephrine. Developed atrial fibrillation with RVR this morning, cardiology was consulted. Patient was noted to have low magnesium, being corrected. And cardiology was consulted that yet to see the patient this morning. Presently his atrial fibrillation with RVR is ranging between 90-120. And blood pressure is marginal on 2 g of norepinephrine. Patient is known to have history of severe cardiomyopathy and LV dysfunction. Hemoglobin is about the same at 7.6. Basic metabolic profile is normal renal profile is normal. Serum cortisol done yesterday was normal. Reevaluated today on 01/17/2018, patient is now in atrial fibrillation with RVR, requiring amiodarone bolus and drip. Developed abdominal pain yesterday, seen by surgery on consultation, and his CT of the abdomen was nondiagnostic of surgical abdomen. He is off norepinephrine today, but he is on amiodarone, blood pressure seems to be stable, his mean arterial pressure is about 66. Again he is off norepinephrine. Renal functioning remains normal today although he came in with significant acute kidney injury which has resolved. Hemoglobin is holding at 7.6. Patient is surprisingly asymptomatic. But he is requiring to stay in the ICU mostly because of his hemodynamic issues and now atrial fibrillation with RVR on amiodarone. Reevaluated today on 01/18/2018, patient remains in the ICU, remains on amiodarone drip for atrial fibrillation with RVR, denies any shortness of breath , denies any abdominal pain, no nausea, no vomiting. Cardiology is still addressing his atrial fibrillation with RVR, seems to be poorly controlled at this point, rate is in the 140 range.he is presently off norepinephrine, chest x -ray is showing mostly atelectasis, and small bilateral tiny pleural effusions not large enough to consider thoracentesis.all labs were also reviewed, WBC count is 6.2 hemoglobin is 7.2 and his basic metabolic profile is noted to be relatively unremarkable except for low potassium of 3.5 be corrected his magnesium is being corrected and his phosphate is being corrected. BUN is 6 creatinine 0.87. On 01/19/2018 patient seen in follow-up in the intensive care unit. He is awake and alert, in no acute distress, pulse ox on 2 L per nasal cannula is 97- 100%. He is afebrile, he maintains in A. fib, and his heart rate is ranging anywhere from 104 to at 150 BPM. Levo fed has been off since yesterday. Maintenance IVs 0.9 normal saline at a rate of 20 ML per hour. Currently blood pressure is 96/57. Urine output is 35-50 ML per hour. Lung sounds are positive for diffuse wheezes and rhonchi, patient has a loose congested cough. Yesterday chest x-ray was reviewed and showed cardiomegaly, bibasilar atelectasis, and small bilateral pleural effusions. Labs have been reviewed, WBC 6.4, hemoglobin is 7.0, sodium is 132, potassium is 4.0, chloride is 97, B1 is 7, creatinine is 0.87. Patient remains on IV diuretics which have been cut back to once daily today. Received a dose of IV Lasix yesterday which seemed to help with the rate control. Will receive another dose today. Remains on oral amiodarone at 200 mg 3 times daily, on anticoagulation in the form of several toe, continues on Zosyn. Urine and blood cultures have been negative. Overall he has improved, stable, and can be considered for transfer out of the intensive care unit today with general medical floor with remote telemetry. The patient is seen again today 01/20/2018 in follow-up on the selective care unit. He is awake and alert in no acute distress. He is maintaining good O2 saturations up to 100% on 3 L/m per nasal cannula. She's been afebrile. Slightly tachycardic in atrial fibrillation, slightly tachypneic. Blood pressure stable. Blood culture reveals no growth. Urine culture reveals no growth. White count 5.9. Hemoglobin 7.0. Creatinine 0.84. He remains on DuoNeb inhalations, Pulmicort inhalations, Augmentin. He remains on IV diuretics. He's been initiated on Cordarone 200 mg 3 times a day along with IV digoxin. Still having issues with rate control. The patient has a history of noncompliance in the outpatient setting as well. The patient is seen again today 01/21/2018 in follow-up on the selective care unit. He is currently resting comfortably in bed. He is awake and alert in no acute distress. He denies any worsening shortness of breath, cough or congestion. Maintaining good O2 saturations in the 90s on 3 L/m per nasal cannula. He is afebrile. White count 5.9. Hemoglobin 7.1. Creatinine 0.87. He remains on Augmentin. Anticoagulated with Xarelto. The plan is for discharge to an ECF. The patient is seen again today 01/22/2018 in follow-up on the selective care unit. His resting comfortably in bed. He is awake and alert in no acute distress. He denies any worsening shortness of breath, cough or congestion. Maintaining good O2 saturations in the 90s on 3 L/m per nasal cannula. His been afebrile. Hemodynamically stable. White count 6.4. Hemoglobin 7.7. Creatinine 0.73. Objective - Vital Signs Vital signs: Vital Signs Temp 97.1 F L 01/22/18 11:22 Pulse 77 01/22/18 11:22 Resp 18 01/22/18 11:22 BP 126/65 01/22/18 11:22 Pulse Ox 95 01/22/18 11:22 Intake & Output 01/21/18 01/22/18 01/22/18 18:59 06:59 18:59 Intake Total 380 310 180 Output Total 400 750 100 Balance -20 -440 80 Weight 64.9 kg Intake: Oral 380 180 Blood Product 310 Rc As-3 Unit 310 [id number] Output: Urine 400 750 100 Other: Voiding Method Bedside Commode Urinal Urinal Urinal # Voids 1 1 - Exam No acute distress, oriented 3. HEENT examination is grossly unremarkable. Mucous membranes are moist. No oral lesions. Neck supple. Full range of motion. No adenopathy thyromegaly or neck vein distention. Cardiovascular examination reveals regular rhythm rate. S1-S2 normal. No S3 or S4. No discernible murmur noted. Lungs reveal clear breath sounds. Her sounds are equal bilaterally. No adventitious lung sounds including wheezes rhonchi or crackles. Abdomen soft bowel sounds are heard. No masses or tenderness. Extremities are intact. No cyanosis clubbing or edema. Skin is without rash or lesion. Neurologic examination is brief but nonfocal. - Labs CBC & Chem 7: 01/22/18 08:04 01/22/18 08:04 Labs: Abnormal Lab Results - Last 24 Hours (Table) 01/21/18 01/22/18 01/22/18 Range/Units 22:31 08:04 08:04 RBC 2.84 L (4.30-5.90) m/uL Hgb 7.7 L (13.0-17.5) gm/dL Hct 25.2 L (39.0-53.0) % MCHC 30.7 L (31.0-37.0) g/dL RDW 16.9 H (11.5-15.5) % Sodium 136 L (137-145) mmol/L Carbon Dioxide 34 H (22-30) mmol/L Calcium 7.4 L (8.4-10.2) mg/dL Phosphorus 2.1 L (2.5-4.5) mg/dL Crossmatch See Detail Microbiology - Last 24 Hours (Table) 01/21/18 02:23 Gram Stain - Preliminary Sputum Assessment and Plan Assessment: Impression: #1 Acute hypovolemic and cardiogenic shock with profound hypotension on presentation. Recovered. #2 Acute on chronic atrial fibrillation with rapid ventricular response. On amiodarone 200 mg by mouth 3 times a day. Anticoagulated with Xarelto. #3 Acute on chronic systolic congestive heart failure with LV dysfunction and ejection fraction 20%. #4 Abdominal pain, workup was nondiagnostic not a surgical abdomen. #5 Acute kidney injury secondary to hypotension and dehydration, recovered. #6 History of noncompliance in the outpatient setting. #7 Chronic and ongoing tobacco dependence with suspected moderate to severe chronic obstructive pulmonary disease. Plan: Patient is seen again today. He is stable from the pulmonary standpoint. The plan is to transfer to an ECF from here. Continue oral antibiotic and Symbicort with DuoNeb's. He is again educated regarding importance of complete smoking cessation. NicoDerm patches in place. Time with Patient: Less than 30
--- NOTE | 2018-01-22 16:13 | DS ---
DISCHARGE SUMMARY DATE OF ADMISSION: January 12, 2018. DATE OF DISCHARGE: January 22, 2018. FINAL DIAGNOSES: 1. Hypertensive and cardiogenic shock, present on admission. 2. Persistent atrial fibrillation rapid ventricular rate. 3. Acute chronic obstructive pulmonary disease exacerbation in a long-standing smoker, present on admission. 4. Microcytic anemia from chronic alcoholism. 5. Chronic hypoxic respiratory failure from underlying chronic obstructive pulmonary disease. 6. Hyperlipidemia. 7. Chronic nicotine dependence, patient is a cigarette smoker. 8. Acute on chronic congestive heart failure exacerbation from systolic dysfunction, ejection fraction 20 to 25% from alcoholic cardiomyopathy. 9. Acute hypoxic respiratory failure from congestive heart failure and chronic obstructive pulmonary disease exacerbation. 10.Thrombocytopenia from alcoholism. 11.Hypophosphatemia. 12.Medical debility. 13.Acute severe renal failure prerenal, present on admission, now resolved. CONSULTATION: Dr. Yoon from Nephrology, Dr. Virk from Pulmonary, Dr. Mcpherson from Cardiology, Dr. De Dios from General surgery. HOSPITAL COURSE: This patient with multiple medical problems presented after being on the floor for several hours. The patient was severely hypertensive. The patient was in acute renal failure. Creatinine is up to 6.99. By the time of discharge, had resolved completely to 0.73. Also was in cardiogenic shock with uncontrolled atrial fibrillation. The patient had several electrolyte abnormalities. By the time of discharge, doing much better, tolerating a diet. Lying in bed, on nasal cannula. Lungs much improved air entry. No feeling weak and tired. The patient's atrial fibrillation is controlled. EXAMINATION: Temp 97.1, pulse 77, respiratory 18, blood pressure 126/65, pulse ox 95 percent on 3 L. LUNGS: Decreased breath sounds. Heart is irregular. Psych: AO x3. DISCHARGE MEDICATIONS: 1. ProAir 2 puffs q.6h p.r.n. 2. Xarelto 20 mg a day. 3. DuoNeb q.i.d. 4. Amiodarone 4 mg a day. 5. Pulmicort 1 mg nebulizer b.i.d. 6. Pravachol 40 mg q.h.s. 7. Magnesium oxide 400 mg p.o. t.i.d. 8. Flomax 0.4 mg p.o. q.h.s. 9. Lomotil 1 tablet p.o. b.i.d. 10.Zestril 2.5 mg p.o. daily. 11.Augmentin 875 1 tablet p.o. q.12h for 6 tablets. 12.Artificial Tears 1 drop both eyes q.4h p.r.n. 13.Digoxin 125 mcg a day. 14.Folic acid 1 mg p.o. daily. 15.Lasix 40 mg a day. 16.Lopressor 12.5 p.o. b.i.d. 17.Multivitamin 1 tablet p.o. daily. 18.Nicotine patch 14 daily. 19.Neutra-Phos 1 packet t.i.d. for 6 packets. 20.Aldactone 12.5 mg at 1:00 pm. 21.Thiamin 100 mg a day. 22.Prednisone taper. 23.Oxygen to keep pulse ox more than 90%. DISPOSITION: [facility]. FOLLOWUP: Follow up with Dr. Jordan at the [facility], follow up with Dr. Georges after discharge from [facility]. Follow up with Dr. Virk in 10 days. Follow up with Dr. Kiara Perry in one week. Copy to Dr. Georges. MMODL / IJN: [id number] /
[2018-01-22 16:30] VITALS: BP 108/63; PULSE 77; TEMP 97.8
== END 2018-01-22 17:31 | DRG 871 ==
LOC: EC 15:05 → 6ICU 18:58 → 6SEL 01-19 21:33
PROVIDERS: ADMIT Hospitalist; ATTEND Hospitalist
PROC: 02HV33Z Insertion of Infusion Device into Superior Vena Cava, Percutaneous Approach (ICD-10-PCS; principal; 2018-01-12)
DX: A41.9 Sepsis, unspecified organism (principal); I50.23 Acute on chronic systolic (congestive) heart failure; E43 Unspecified severe protein-calorie malnutrition; N17.0 Acute kidney failure with tubular necrosis; J96.21 Acute and chronic respiratory failure with hypoxia; R57.0 Cardiogenic shock; R65.21 Severe sepsis with septic shock; I13.0 Hypertensive heart and chronic kidney disease with heart failure and stage 1 through stage 4 chronic kidney disease, or unspecified chronic kidney disease; Z68.1 Body mass index [BMI] 19.9 or less, adult; E87.1 Hypo-osmolality and hyponatremia; I48.1 Persistent atrial fibrillation; J44.1 Chronic obstructive pulmonary disease with (acute) exacerbation; J98.11 Atelectasis; M62.82 Rhabdomyolysis; R18.8 Other ascites; N39.0 Urinary tract infection, site not specified; I42.6 Alcoholic cardiomyopathy; D50.9 Iron deficiency anemia, unspecified; D63.8 Anemia in other chronic diseases classified elsewhere; D69.59 Other secondary thrombocytopenia; E78.5 Hyperlipidemia, unspecified; E83.39 Other disorders of phosphorus metabolism; E83.42 Hypomagnesemia; E86.0 Dehydration; E86.1 Hypovolemia; E87.6 Hypokalemia; F10.20 Alcohol dependence, uncomplicated; F17.210 Nicotine dependence, cigarettes, uncomplicated; G47.00 Insomnia, unspecified; I08.1 Rheumatic disorders of both mitral and tricuspid valves; I25.5 Ischemic cardiomyopathy; I45.10 Unspecified right bundle-branch block; I48.0 Paroxysmal atrial fibrillation; I48.2 Chronic atrial fibrillation; N18.9 Chronic kidney disease, unspecified; W19.XXXA Unspecified fall, initial encounter; M19.90 Unspecified osteoarthritis, unspecified site; T50.2X5A Adverse effect of carbonic-anhydrase inhibitors, benzothiadiazides and other diuretics, initial encounter; Y92.002 Bathroom of unspecified non-institutional (private) residence as the place of occurrence of the external cause; Z60.2 Problems related to living alone; Z79.01 Long term (current) use of anticoagulants; Z79.899 Other long term (current) drug therapy; Z83.3 Family history of diabetes mellitus; Z86.73 Personal history of transient ischemic attack (TIA), and cerebral infarction without residual deficits; Z87.01 Personal history of pneumonia (recurrent); Z87.442 Personal history of urinary calculi; Z91.19 Patient's noncompliance with other medical treatment and regimen; Z88.1 Allergy status to other antibiotic agents; Z98.42 Cataract extraction status, left eye; Z98.41 Cataract extraction status, right eye; Z79.51 Long term (current) use of inhaled steroids; Z89.421 Acquired absence of other right toe(s); M47.9 Spondylosis, unspecified; L89.159 Pressure ulcer of sacral region, unspecified stage
CPT/HCPCS: 36415; 36556; 51702; 70450; 71045; 74176; 74177; 74230; 80048; 80053; 80320; 81001; 82533; 82550; 82728; 83540; 83550; 83605; 83735; 84100; 84132; 84484; 85025; 85610; 85730; 86850; 86900; 86901; 86920; 87040; 87070; 87077; 87086; 87186; 87205; 93005; 94640; 96361; 96365; 96366; 96368; 96374; 99291